=== PATIENT | female | born 1950 | race Caucasian/White ===

== ENCOUNTER → 2018-01-20 09:27 | Outpatient (CLI) | payer MEDICARE, BC, SELFPAY ==
--- NOTE | 2018-01-20 | DI.ECHO.S_ITS ---
[facility]---------+ [facility] +---------+ : : [address] : : [place] : : : : [id number] : : : : Phone: [phone]+ Echocardiogram Report + + :Name: NICOLASA RAHMAN Study Date: 01/20/2018 Height: 60 in : :[facility] Exam Location: IS Weight: 205 lb : : Gender: Female BSA: 1.9 m2 : :: 1950 Age: 67 yrs BP: 124/90 mmHg: :Reason For Study: Sarcoidosis : :Ordering Physician: Agustin Simon : :Abdelrahman Performed By: Anuja Luna : :Referring: Agustin Quick : + + Interpretation Summary 1) Normal left ventricular thickness, size, wall motion, and systolic function (EF 60-65%). 2) Grossly normal right ventricular size and function. 3) No significant valvular abnormalities. 4) There is no pericardial effusion. 5) No prior Echo available for comparison. Procedure: A two-dimensional transthoracic echocardiogram with color flow and Doppler was performed. The study quality was technically adequate. There is no prior echocardiogram noted for this patient. The patient was not able to reposition for the echocardiogram. The images were obtained with the patient laying supine. The patient was in normal sinus rhythm during the exam. Left Ventricle: The left ventricle is normal in size. There is normal left ventricular wall thickness. The ejection fraction is estimated to be 60-65%. Left ventricular systolic function is normal without focal wall motion abnormalities. Right Ventricle: The right ventricle is grossly normal size. The right ventricular systolic function is normal. Atria: The left atrium grossly appears normal in size. Right atrial size is normal. The interatrial septum is intact with no evidence for an atrial septal defect. Mitral Valve: The mitral valve leaflets appear mildly thickened, but open well. There is mild mitral annular calcification. There is trace mitral regurgitation. Aortic Valve: The aortic valve is trileaflet. The aortic valve opens well. There is no aortic valve stenosis. There is trace aortic regurgitation. Tricuspid Valve: The tricuspid valve is normal in structure and function. There is trace tricuspid regurgitation. The right ventricular systolic pressure is estimated at 25 mmHg assuming a right atrial pressure of 3 mm Hg. Pulmonic Valve: The pulmonic valve is not well seen, but is grossly normal. There is a trace or physiologic amount of pulmonic regurgitation. Great Vessels: The ascending aorta could not be visualized. The IVC is of normal diameter and collapses greater than 50% with a sniff. This suggests a low right atrial pressure of 3 mm Hg. Pericardium/ Pleura There is no pericardial effusion. There is an anterior echo-free space consistent with a fat pad. There is no pleural effusion. MMode/2D Measurements & Calculations LVIDd: 5.1 cm LVOT diam: 2.2 cm LVIDs: 3.6 cm FS: 29.3 % IVSd: 0.95 cm LVPWd: 0.79 cm LV bhakta. diameter/BSA (cm/m^2): 2.7 LV sys. diameter/BSA (cm/m^2): 1.9 RA long axis: 4.5 cm TAPSE: 2.1 cm RA area: 11.5 cm2 RA vol: 25.0 ml RA : 13.3 ml/m2 Doppler Measurements & Calculations Ao V2 max: 128.5 cm/sec LVOT Max Cliff: 90.2 cm/sec Ao V2 mean: 98.0 cm/sec LV V1 max P.3 mmHg Ao max P.6 mmHg LV V1 VTI: 16.5 cm Ao mean P.1 mmHg MATEO(I,D): 2.4 cm2 Ao V2 VTI: 26.6 cm MATEO(V,D): 2.7 cm2 sev ratio: 0.62 MATEO indexed to BSA (cm^2/m^2): 1.3 MV E max cliff: 50.9 cm/sec TR max cliff: 233.9 cm/sec MV A max cliff: 67.3 cm/sec TR max P.9 mmHg MV E/A: 0.76 PA V2 max: 72.0 cm/sec Med Peak E' Cliff: 3.8 cm/sec PA V2 mean: 49.3 cm/sec E/E' med: 13.4 PA mean P.1 mmHg Lat Peak E' Cliff: 8.7 cm/sec PA pr(Accel): 11.6 mmHg E/E' lat: 5.8 E/e' average: 9.6 MV dec time: 0.14 sec Reading Physician:10:36 AM
== END ==
PROVIDERS: Family Provider Family Medicine; PCP Family Medicine; Visit Provider Internal Medicine Cardiovascular Disease
DX: D86.9 Sarcoidosis, unspecified (principal)
CPT/HCPCS: 93306

== ENCOUNTER → 2018-04-12 13:30 | Outpatient (CLI) | payer MEDICARE, BC, SELFPAY ==
--- NOTE | 2018-04-12 | DI.CT.S_ITS ---
PROCEDURE: CT CHEST HIGH RESOLUTION INDICATIONS: SYSTEMIC INVOLVEMENT LUNGS TECHNIQUE: Noncontrast 1.0 and 5.0 mm thick contiguous axial sections from the pulmonary apex to the posterior costophrenic angles, with 7 mm thick coronal and sagittal MIP reformats. 1 mm thick dynamic expiratory images acquired through the upper, mid, and lower lungs. 1.0 mm thick axial sections acquired from the didi to the posterior costophrenic angles in the prone end-inspiration position. For radiation dose reduction, the following was used: automated exposure control, adjustment of mA and/or kV according to patient size. COMPARISON: [facility], CT, CHEST HIGH RESOLUTION, 06/10/2017, 15:39. FINDINGS: Image quality: Excellent. Lungs: No acute consolidation is seen. There is diffuse scarring and atelectasis. Prominent platelike atelectasis along the right fissure which has developed since the prior study dated 06/10/17. No pneumothorax. No pleural effusion. No areas of honeycombing are seen. Traction bronchiectasis present within the right upper and middle lobe. No tree in bud opacities. Mosaic lung attenuation seen in the upper lobes raises the possibility of air-trapping. The Mediastinum: Heart size is normal. Coronary artery disease. No pericardial effusion. Thoracic aorta and central pulmonary arteries are normal in size. Circumferential esophageal wall thickening is present versus small hiatal hernia. Overall, the appearance is unchanged since 06/10/17. Bones and chest wall: No suspicious bony lesions. No vertebral body compression fractures. Abdomen: Visualized upper abdominal solid organs and bowel loops appear normal. IMPRESSION: Interval development of platelike atelectasis along the right fissure, new since the prior study of 06/10/17. Underlying pulmonary nodule or associated intraluminal lesion with associated post obstructive atelectasis cannot be excluded. Right upper lobe and middle lobe bronchiectasis. No acute consolidation. No areas of honeycombing identified. Dictated by: Stu Gonzalez M.D. on 04/12/2018 at 16:22 Approved by: Stu Gonzalez M.D. on 04/12/2018 at 16:30
== END ==
PROVIDERS: Family Provider Family Medicine; PCP Family Medicine; Visit Provider Internal Medicine Critical Care Medicine
DX: M35.8 Other specified systemic involvement of connective tissue (principal); J98.11 Atelectasis; J47.9 Bronchiectasis, uncomplicated; I25.10 Atherosclerotic heart disease of native coronary artery without angina pectoris
CPT/HCPCS: 71250

== ENCOUNTER → 2018-04-23 13:33 | Outpatient (CLI) | payer MEDICARE, BC, SELFPAY | PROVIDERS: Family Provider Family Medicine; PCP Family Medicine; Visit Provider Internal Medicine Rheumatology | DX: M81.0 Age-related osteoporosis without current pathological fracture (principal) | CPT/HCPCS: 77080 ==

== ENCOUNTER → 2018-05-20 14:18 | Outpatient (CLI) | payer MEDICARE, BC, SELFPAY ==
--- NOTE | 2018-05-20 | DI.RAD.S_ITS ---
PROCEDURE: XR CHEST 2V INDICATIONS: PNEUMONIA TECHNIQUE: 2 views of the chest were acquired. COMPARISON: [facility], , CHEST 2 VIEW, 05/08/2017, 12:32. FINDINGS: Surgical changes and devices: None. Lungs and pleura: No pleural effusions or pneumothorax. Lungs are clear. Mediastinum: Mediastinal contours are normal. Heart size is normal. Bones and chest wall: No suspicious bony abnormalities. Soft tissues appear unremarkable. IMPRESSION: Normal for age, source of current pneumonia symptoms is not seen. Dictated by: Alfred Davies M.D. on 05/20/2018 at 16:04 Approved by: Alfred Davies M.D. on 05/20/2018 at 16:04
--- NOTE | 2018-05-21 16:33 | PM.PFT.1 ---
Pulmonary Function Test Referral & Results Date Patient Seen: 05/20/18 Requesting provider: Adriana Bellamy Indication: J84.89 Results: The spirometry demonstrates an FVC of 2.10 L which is 81% of predicted. The FEV1 was measured at 1.75 L which is 89% of predicted. The FEV1/FVC ratio was 83 which is 109% of predicted. Following the administration of bronchodilator there was no appreciable change. Lung volumes show an SVC of 2.08 L which is 83% of predicted. The diffusing capacity was measured at 17.67 which is 93% of predicted. The maximum voluntary ventilation was reduced Interpretation: This study demonstrates mild obstructive lung disease based on minimal reduction in FEV1 without evidence of benefit following bronchodilator There is a very mild reduction in SVC suggesting an element of restrictive lung disease as well Compared to PFTs performed in April 2017, current study does show decline in FEV1 an SVC. Clinical correlation suggested
== END ==
PROVIDERS: Family Provider Family Medicine; PCP Family Medicine; Referring Provider Internal Medicine Rheumatology; Visit Provider Internal Medicine Critical Care Medicine
DX: J84.89 Other specified interstitial pulmonary diseases (principal); M35.8 Other specified systemic involvement of connective tissue; J18.1 Lobar pneumonia, unspecified organism
CPT/HCPCS: 71046; 94060; 94726; 94729

== ENCOUNTER → 2018-05-28 12:31 | Outpatient (CLI) | payer MEDICARE, BC, SELFPAY ==
--- NOTE | 2018-05-28 | DI.CT.S_ITS ---
PROCEDURE: CT CHEST WO CON INDICATIONS: Lobar pneumonia, unspecified organism TECHNIQUE: Noncontrast 5 mm thick sections acquired from the pulmonary apices to the posterior costophrenic angles. 7 mm thick coronal and sagittal MIP reformats were then acquired. For radiation dose reduction, the following was used: automated exposure control, adjustment of mA and/or kV according to patient size. COMPARISON: [facility], CT, CHEST HIGH RESOLUTION, 06/10/2017, 15:39. [facility], CT, CT CHEST HIGH RESOLUTION, 04/12/2018, 13:31. FINDINGS: Image quality: Excellent. Lungs and pleura: Again noted is a chronic interstitial process involving the upper lobes, with an apical predominance, right greater than left. This process does not appear to be progressive. There is mild associated upper lung zone bronchiectasis. No acute focal pulmonary infiltrates. No pleural effusion or atelectasis. Mediastinum: Heart size is normal. No pericardial effusion. No mediastinal adenopathy by size criteria. Thoracic aorta and central pulmonary arteries are normal in size. Esophagus is normal in caliber. No hiatal hernia. Advanced coronary artery calcifications. Bones and chest wall: No suspicious bony lesions. No vertebral body compression fractures. No axillary or supraclavicular adenopathy by size criteria. Thyroid gland unremarkable. Abdomen: Visualized upper abdominal solid organs and bowel loops appear normal in the absence of contrast. IMPRESSION: 1. Unchanged mild biapical chronic interstitial pulmonary fibrosis. No evidence acute pulmonary process. 2. Advanced coronary artery calcifications. Dictated by: Timmy Newman M.D. on 05/28/2018 at 12:54 Approved by: Timmy Newman M.D. on 05/28/2018 at 13:00
== END ==
PROVIDERS: Family Provider Family Medicine; PCP Family Medicine; Referring Provider Internal Medicine Rheumatology; Visit Provider Internal Medicine Critical Care Medicine
DX: J18.1 Lobar pneumonia, unspecified organism (principal); J84.10 Pulmonary fibrosis, unspecified; I25.10 Atherosclerotic heart disease of native coronary artery without angina pectoris
CPT/HCPCS: 71250

== ENCOUNTER → 2018-10-13 11:22 | Outpatient (CLI) | payer MEDICARE, BC, SELFPAY ==
--- NOTE | 2018-10-13 | DI.MRI.S_ITS ---
PROCEDURE: MR LUMBAR SPINE WO CON INDICATIONS: Spondylolisthesis, lumbar region TECHNIQUE: Noncontrast sagittal T1 spin echo and T2 fast echo, sagittal STIR, axial T1 and T2 fast spin echo through the lumbar spine. In cases with scoliosis, additional coronal T2 fast spin echo may be performed. COMPARISON: [facility] [place], CR, XR LUMBAR SPINE 2 OR 3 VIEWS, 10/01/2018, 13:58. [facility], MR, L-SPINE WITHOUT CONTRAST, 06/20/2014, 18:01. FINDINGS: Image quality: Excellent. Alignment and Curvature: 5 lumbar type vertebral bodies are present by plain film. There is mild, grade 1 anterolisthesis of L4 on L5. Bone Marrow: Marrow is of normal overall signal. No acute vertebral body compression fractures. Mild reactive signal within the endplates adjacent to the L4-L5 and L5-S1 intervertebral discs. Spinal Cord: Conus medullaris terminates at the upper L2 level. Visualized cord demonstrates normal signal and size. Paraspinous Soft Tissues: No paravertebral masses. L1-L2: Mild facet and ligamentum flavum hypertrophy. No significant canal, nor foraminal stenosis. L2-L3: Mild facet and ligamentum flavum hypertrophy. No significant canal, nor foraminal stenosis. L3-L4: Mild disc desiccation. Mild disc height loss. Mild diffuse disc bulge. Mild facet and ligamentum flavum hypertrophy. Mild canal stenosis. Mild bilateral foraminal stenosis. No change. L4-L5: Moderate disc height loss and desiccation. Mild diffuse disc bulge. Moderate facet and ligamentum flavum hypertrophy. Severe canal stenosis. Mild bilateral foraminal stenosis. No change. L5-S1: Mild disc height loss. Moderate disc desiccation. Mild diffuse disc bulge with superimposed small central protrusion. Mild bilateral facet hypertrophy. Mild canal stenosis. Mild bilateral foraminal stenosis. IMPRESSION: 1. Multilevel degenerative disc and facet disease, as well as ligamentum flavum hypertrophy and epidural lipomatosis. 2. Multilevel canal stenoses, worst at L4-L5, where there is severe canal stenosis, as before. 3. No change in mild multilevel foraminal stenoses. Dictated by: Augustus Reed M.D. on 10/13/2018 at 13:07 Approved by: Augustus Reed M.D. on 10/13/2018 at 13:29
== END ==
PROVIDERS: Family Provider Family Medicine; PCP Family Medicine; Visit Provider Orthopaedic Surgery
DX: M43.16 Spondylolisthesis, lumbar region (principal); M51.36 Other intervertebral disc degeneration, lumbar region; M51.37 Other intervertebral disc degeneration, lumbosacral region; M48.061 Spinal stenosis, lumbar region without neurogenic claudication; M48.07 Spinal stenosis, lumbosacral region; E88.2 Lipomatosis, not elsewhere classified
CPT/HCPCS: 72148

== ENCOUNTER → 2018-11-19 15:55 | Outpatient (CLI) | payer MEDICARE, BC, SELFPAY ==
--- NOTE | 2018-11-19 | DI.ECHO.S_ITS ---
[facility] +---------+ [facility] +---------+ : : [address] : : [place] : : : : [id number] : : : : Phone: [phone]+ Echocardiogram Report + + :Name: NICOLASA RAHMAN Study Date: 11/19/2018 Height: 60 in : :[facility] Weight: 201 lb : : Gender: Female BSA: 1.9 m2 : :: 1950 Age: 68 yrs BP: 146/84 mmHg: :Reason For Study: Dyspnea : :Ordering Physician: Adriana : :Parimi Performed By: Bonny Flores : :Referring: Dr. Zeke Valente : + + Interpretation Summary 1) Normal left ventricular thickness, size, wall motion, and systolic function (EF 60-65%). 2) Grossly normal right ventricular size with low normal function. 3) No significant valvular abnormalities. 4) The right ventricular systolic pressure is estimated to be at least 35 mmHg based on an estimated right atrial pressure of 3 mm Hg. 5) Compared to the Echo done 01/20/2019, no significant change. Procedure: A two-dimensional transthoracic echocardiogram with color flow and Doppler was performed. The study quality was technically adequate. Comparison is made with the echocardiogram of 01-20-18. The patient was in normal sinus rhythm during the exam. Left Ventricle: The left ventricle is normal in size, wall thickness, and systolic function without any focal wall motion abnormalities. The ejection fraction is estimated to be 60-65%. Right Ventricle: Grossly normal right ventricular size with low normal function. Atria: The left atrial size is normal. Right atrial size is normal. The interatrial septum is intact with no evidence for an atrial septal defect. Mitral Valve: The mitral valve is normal in structure and function. There is trace mitral regurgitation. Aortic Valve: The aortic valve is trileaflet. The aortic valve opens well. There is trace aortic regurgitation. Tricuspid Valve: The tricuspid valve leaflets are thin and pliable. There is mild tricuspid regurgitation. The right ventricular systolic pressure is estimated to be at least 35 mmHg based on an estimated right atrial pressure of 3 mm Hg. Pulmonic Valve: The pulmonic valve is normal in structure and function. There is trace pulmonic regurgitation. Great Vessels: The aortic root is normal size. The ascending aorta is at the upper limits of normal in size. The aortic arch is normal in size. The IVC is of normal diameter and collapses greater than 50% with a sniff. This suggests a low right atrial pressure of 3 mm Hg. Pericardium/ Pleura There is no pericardial effusion. There is no pleural effusion. MMode/2D Measurements & Calculations LVIDd: 4.6 cm Ao root diam: 3.4 cm LVIDs: 3.1 cm Aortic Jxn: 2.7 cm FS: 33.0 % asc Aorta Diam: 3.6 cm EPSS: 0.31 cm Ao Arch Diam (Prox Trans): 2.8 cm IVSd: 1.00 cm LVPWd: 0.97 cm LV bhakta. diameter/BSA (cm/m^2): 2.5 LV sys. diameter/BSA (cm/m^2): 1.7 LA dimension: 3.3 cm RA long axis: 4.3 cm LA A2 area: 19.0 cm2 RA area: 16.8 cm2 LA A4 area: 18.1 cm2 RA vol: 55.6 ml LA length (vol): 4.5 cm RA : 29.7 ml/m2 LA vol: 65.6 ml RVDd major: 5.1 cm LA vol index: 35.1 ml/m2 RVD1 (basal): 4.0 cm RVD2 (mid): 3.6 cm Doppler Measurements & Calculations Ao V2 max: 146.6 cm/sec MV E max cliff: 95.9 cm/sec Ao V2 mean: 99.0 cm/sec MV A max cliff: 95.9 cm/sec Ao max P.6 mmHg MV E/A: 1.0 Ao mean P.5 mmHg Med Peak E' Cliff: 4.8 cm/sec Ao V2 VTI: 35.1 cm E/E' med: 19.8 Lat Peak E' Cliff: 8.2 cm/sec E/E' lat: 11.7 E/e' average: 15.7 MV dec time: 0.23 sec MV P1/2t: 67.4 msec TR max cliff: 281.1 cm/sec MV P1/2t max cliff: 94.5 cm/sec TR max P.6 mmHg MVA(P1/2t): 3.3 cm2 PA V2 max: 89.8 cm/sec PA V2 mean: 59.1 cm/sec PA mean P.7 mmHg PA Accel Time: 0.13 sec Reading Physician:12:24 PM
== END ==
PROVIDERS: Family Provider Family Medicine; PCP Family Medicine; Visit Provider Internal Medicine Critical Care Medicine
DX: I35.1 Nonrheumatic aortic (valve) insufficiency (principal); I07.1 Rheumatic tricuspid insufficiency; I37.1 Nonrheumatic pulmonary valve insufficiency; R06.09 Other forms of dyspnea
CPT/HCPCS: 93306

== ENCOUNTER → 2019-01-28 14:36 | Outpatient (CLI) | payer MEDICARE, BC, SELFPAY ==
--- NOTE | 2019-01-28 | DI.CT.S_ITS ---
PROCEDURE: CT CHEST WO CON INDICATIONS: interstitial lung disease TECHNIQUE: Noncontrast 5 mm thick sections acquired from the pulmonary apices to the posterior costophrenic angles. 1 mm lung window, 5 mm thick coronal and sagittal and 7 mm axial MIP reformats were then acquired. For radiation dose reduction, the following was used: automated exposure control, adjustment of mA and/or kV according to patient size. COMPARISON: [facility], CT, CT CHEST WO [facility], 05/28/2018, 12:29. FINDINGS: Image quality: Excellent. Lungs and pleura: No acute consolidation. Scattered subsegmental atelectasis and/or scarring. No pleural effusion. No pneumothorax. Central bronchial wall thickening. Scattered traction bronchiectasis, mild No definite areas of honeycombing appearance. No tree-in-bud opacities. Ill-defined areas of 1.1 cm nodularity, for example the right lung base on image 11 series 3, and smaller in the right sulcus on image to 35 series 3. These could represent areas of nodular scarring although technically indeterminate and could be followed up with three-month interval chest CT at clinical discretion Mediastinum: Heart size is normal. No pericardial effusion. No mediastinal adenopathy by size criteria. Thoracic aorta and central pulmonary arteries are normal in size. Esophagus is normal in caliber. No hiatal hernia. Bones and chest wall: No suspicious bony lesions. No vertebral body compression fractures. No axillary or supraclavicular adenopathy by size criteria. Thyroid gland unremarkable. Abdomen: Visualized upper abdominal solid organs and bowel loops appear normal in the absence of contrast. IMPRESSION: Areas of scarring/atelectasis primarily in a bronchovascular distribution, probably postinflammatory. These appear progressed in both lower lobes although grossly unchanged in the right upper lobe Ill-defined foci measuring up to 1.1 cm, primarily within the right lower lobe, which could reflect nodular scarring although followup in [address] chest could be performed to exclude early metastatic or malignant nodules. No definite honeycombing appearance. Central bronchial wall thickening suggestive of nonspecific bronchitis and/or reactive airways disease. Mild diffuse traction bronchiectasis. Dictated by: Stu Gonzalez M.D. on 01/28/2019 at 16:44 Approved by: Stu Gonzalez M.D. on 01/28/2019 at 16:53
== END ==
PROVIDERS: PCP Family Medicine; Visit Provider Internal Medicine Critical Care Medicine
DX: J84.9 Interstitial pulmonary disease, unspecified (principal); J47.9 Bronchiectasis, uncomplicated
CPT/HCPCS: 71250

== ENCOUNTER → 2019-06-08 09:17 | Outpatient (CLI) | payer MEDICARE, BC, SELFPAY ==
[2019-06-08 10:11] LABS: Add Manual Diff / Slide Review NO; Basophils Absolute Auto 100 /uL (0-100); Basophils Percent Auto 0.9 % (0-2); Eosinophils Absolute Auto 300 /uL (0-450); Eosinophils Percent Auto 2.6 % (2-4); Hematocrit 38.9 % (36-46); Hemoglobin 12.5 g/dL (12.0-16.0); Lymphocytes Absolute Auto 1100 /uL (1100-4500); Lymphocytes Percent Auto 8.6 % (25-40); Mean Corpuscular HGB Conc 32.1 % (30-36); Mean Corpuscular Hemoglobin 29.3 PG (26-34); Mean Corpuscular Volume 91.3 fL (80-100); Monocytes Absolute Auto 1300 /uL (0-900); Monocytes Percent Auto 9.7 % (3-14); Neutrophils Absolute Auto 10200 /uL (1500-7000); Neutrophils Percent Auto 78.2 % (50-75); Platelet Count 351 X10^3/uL (150-400); Red Blood Cell Count 4.26 X10^6/uL (4.0-5.2); Red Cell Distribution Width 16.4 % (11.6-14.8)
[2019-06-08 10:20] LABS: Hemoglobin A1C% w Est Avg Glu 7.3 % (4.0-6.0)
[2019-06-08 11:18] LABS: Blood Urea Nitrogen 18 mg/dL (7-17); Calcium 10.6 mg/dL (8.4-10.2); Carbon Dioxide 32 mmol/L (22-32); Chloride 98 mmol/L (98-107); Estimated Glomerular Filt Rate 44.5 mL/min (>60); Glucose 159 mg/dL (80-110); HEMOLYSIS < 15 (0-50); Potassium 4.3 mmol/L (3.4-5.1); Sodium 139 mmol/L (137-145)
== END ==
PROVIDERS: PCP Family Medicine; Referring Provider Orthopaedic Surgery Orthopaedic Surgery of the Spine; Visit Provider Orthopaedic Surgery Orthopaedic Surgery of the Spine
DX: Z01.812 Encounter for preprocedural laboratory examination (principal)
CPT/HCPCS: 36415; 80048; 83036; 85025; 93005

== ENCOUNTER → 2019-06-30 12:32 | Outpatient (CLI) | payer MEDICARE, BC, SELFPAY ==
--- NOTE | 2019-06-30 | DI.US.S_ITS ---
PROCEDURE: US RENAL COMPLETE INDICATIONS: STAGE III RENAL DISEASE TECHNIQUE: Real-time scanning was performed of the kidneys and bladder, with image documentation. COMPARISON: None. FINDINGS: Kidneys: Kidneys are normal in size. Right kidney measures 9.3 cm long; left kidney measures 10.4 cm long. Right renal cortical thickness is 1.5 cm; left renal cortical thickness is 1.3 cm. Renal cortical echotexture is normal. No hydronephrosis or nephrolithiasis. No suspicious solid mass lesions. 3.7 x 3.3 x 3.7 cm cyst in the inferior pole of the left kidney Bladder: Pre-void bladder volume is 186 mL. Post-void residual is zero mL. Pre-void images demonstrate no intraluminal masses or stones. On pre-void images, both of the ureteral jets are noted with color Doppler interrogation. (Of note, ureteral jets may not be detectable in up to 25% of cases due to insufficient differences in specific gravity between ureteral and bladder urine). Miscellaneous: No free pelvic fluid. IMPRESSION: Left renal cyst. No hydronephrosis. Dictated by: Stu Gonzalez M.D. on 06/30/2019 at 16:49 Approved by: Stu Gonzalez M.D. on 06/30/2019 at 16:51
[2019-06-30 13:44] LABS: RBC Urine None Seen (0-5/HPF)
[2019-06-30 14:19] LABS: Add Manual Diff / Slide Review NO; Basophils Absolute Auto 100 /uL (0-100); Basophils Percent Auto 1.1 % (0-2); Eosinophils Absolute Auto 200 /uL (0-450); Eosinophils Percent Auto 2.9 % (2-4); Hematocrit 37.7 % (36-46); Hemoglobin 11.9 g/dL (12.0-16.0); Lymphocytes Absolute Auto 1200 /uL (1100-4500); Lymphocytes Percent Auto 13.9 % (25-40); Mean Corpuscular HGB Conc 31.6 % (30-36); Mean Corpuscular Hemoglobin 28.9 PG (26-34); Mean Corpuscular Volume 91.4 fL (80-100); Monocytes Absolute Auto 800 /uL (0-900); Monocytes Percent Auto 8.8 % (3-14); Neutrophils Absolute Auto 6300 /uL (1500-7000); Neutrophils Percent Auto 73.3 % (50-75); Platelet Count 335 X10^3/uL (150-400); Red Blood Cell Count 4.12 X10^6/uL (4.0-5.2); Red Cell Distribution Width 16.7 % (11.6-14.8); White Blood Cell Count 8.6 X10^3/uL (4.5-11.0)
[2019-06-30 14:34] LABS: Blood Urea Nitrogen 16 mg/dL (7-17); Calcium 10.2 mg/dL (8.4-10.2); Carbon Dioxide 32 mmol/L (22-32); Chloride 99 mmol/L (98-107); Glucose 193 mg/dL (80-110); HEMOLYSIS < 15 (0-50); Magnesium 1.8 mg/dL (1.6-2.3); Phosphorous 3.7 mg/dL (2.8-4.1); Potassium 4.6 mmol/L (3.4-5.1); Sodium 138 mmol/L (137-145); Uric Acid 6.1 mg/dL (2.5-6.2)
[2019-06-30 14:37] LABS: Appearance Urine UA CLEAR; Bilirubin Urine UA NEGATIVE (NEGATIVE); Color Urine UA YELLOW; Glucose Urine UA NEGATIVE (Negative); Ketones Urine UA NEGATIVE (NEGATIVE); Leukocyte Esterase Urine UA 2+ (NEGATIVE); Nitrite Urine UA NEGATIVE (Negative); Occult Blood Urine UA NEGATIVE (Negative); Protein Urine UA NEGATIVE (Negative); Specific Gravity Urine UA <=1.005 (1.000-1.035); Urobilinogen Urine UA 0.2 E.U./dL (0.2)
[2019-06-30 15:08] LABS: Amorphous Sediment Urine 1+; Bacteria Urine Many (>30); Culture Indicated Urine Specimen Cultured; Squamous Epithelial Cell Urine 0-1 /HPF (0-5/HPF); WBC Urine 10-30/HPF (0-5/HPF)
[2019-06-30 16:09] LABS: Creatinine Urine Random 23.3 mg/dL
[2019-06-30 16:13] LABS: Microalbumi Creatinin Ratio Ur 98.7 ug/mg CR (<30); Microalbumin Urine Random 2.3 mg/dL (0-1.6)
== END ==
PROVIDERS: PCP Family Medicine; Referring Provider Internal Medicine Nephrology; Visit Provider Internal Medicine Nephrology
DX: N18.3 Chronic kidney disease, stage 3 (moderate) (principal); N28.1 Cyst of kidney, acquired
CPT/HCPCS: 36415; 76770; 80048; 81001; 82043; 82570; 83735; 84100; 84550; 85025; 87077; 87086; 87186

== ENCOUNTER 2019-07-08 10:34 | Inpatient (IN) | payer MEDICARE, BC, SELFPAY ==
[2019-06-27 13:54] VITALS: BMI 35.2
[2019-07-08] VITALS (12 sets, daily range): BP systolic 98–153; BP diastolic 57–84; PULSE 78–93; RESP 11–18; TEMP 35.6–36.9; O2SAT 91–96; BMI 34.9
--- NOTE | 2019-07-08 | DI.RAD.S_ITS ---
PROCEDURE: XR LUMBAR SPINE 2-3V INDICATIONS: L4-5, L5-S1 TLIF TECHNIQUE: 2 views of the lumbar spine were acquired. COMPARISON: None. FINDINGS: Bones: Immediate postoperative imaging showing L4-S1 transverse pedicle screws and vertical fixation rods with cage disc prostheses devices at the 2 intervening disc levels. Soft tissues: Overlying bowel gas pattern is normal. No suspicious soft tissue calcifications. IMPRESSION: Expected anatomic alignment established after posterior fusion and interbody disc prosthesis placement from L4-S1. Dictated by: Alfred Davies M.D. on 07/08/2019 at 16:07 Approved by: Alfred Davies M.D. on 07/08/2019 at 16:08
[2019-07-08] MEDS: LACTATED RINGERS 1,000 ML 42 ML IV ×2 (11:04→13:33)
--- NOTE | 2019-07-08 12:11 | PM.PREOP ---
Pre-operative Note Interval Note History & Physical reviewed/Exam performed by Physician: Yes Changes to H&P: No
[2019-07-08] MEDS: CLINDAMYCIN 900 MG/50 ML PIGGYBACK 50 MG IV ×2 (12:38→21:58)
--- NOTE | 2019-07-08 13:23 | SUR.OPER ---
Prone on spine table, head in foam head support, padded chest and pelvic supports, gel pad at knees, lower legs supported by pillows; nipples, genitalia and toes free of pressure, arms secured on foam padded arm boards at <90 degrees abduction. Tape over blanket at thigh secured to table.
[2019-07-08] MEDS: BUPIVACAINE LIPOSOME 266 MG/20 ML VIAL INJ (15:42)
[2019-07-08] MEDS: BUPIVACAINE 0.25% W/ EPI 30 ML VIAL INJ (15:42)
--- NOTE | 2019-07-08 16:00 | P.OP_ITS ---
Operative Date/Time/Diagnoses Date of procedure: 07/08/19 Time of procedure: 13:01 Pre-op diagnosis: 1. L4-5, L5-S1 spondylolisthesis 2. L4-5, L5-S1 spinal stenosis. Post-op diagnosis: same Procedure & Clinicians Procedure: 1. L4-5, L5-S1 Postero-lateral and posterior interbody fusion 2. L4-5, L5-S1 interbody cage placement. 3. L4-5, L5-S1 decompressive laminectomy with bilateral facetecomies 4. L4-5, L5-S1 Posterior segmental instrumentation 5. [place] of bone marrow from iliac crest 6. Utilization of microsurgical technique and operating microscope Same procedure as scheduled: Yes Indications: Patient has been having chronic back pain and worsening lumbar radiculopathy. Patient failed multiple conservative management with worsening pain weakness and numbness in her lower extremity. Patient has been having difficulty performing activity of daily living. After discussing risks benefits of treatment options, patient elected proceed with surgery. Surgeon: Tanja Page Textile Technologist: Mary Jane Goddard Click Yes if Unassisted: No Anesthesia Type: General Operative Notes Closure Type: primary Specimen(s): none sent Prosthetic devices, grafts, tissues, transplants, or devices: Globus revolve, Rise cages Applied: catheter Estimated Blood Loss (mL): 50 Blood products transfused: none Procedure in detail: Patient was seen in the preoperative area. Risks and benefits of the surgery was discussed with the patient. Informed consent was obtained from the patient and placed in the chart. Surgical site was marked. Patient was taken to the operative room. General anesthesia was administered. Prophylactic antibiotic was given to the patient less than 30 min before the incision was made. Patient was placed into a prone position on the Ernesto table. Patient's back was then prepped and draped in the sterile fashion. Time- out was performed at this time. Using AP and lateral C-arm imaging the interval between L4-S1 was identified and marked on patient's back. A 2 inch incision 2 in from midline was made on the right side first. The fascia was incised in line with skin incision. Globus MARS retractors was placed inside the incision and docked onto the L4 and L5 lamina. Using microsurgical technique and operating microscope, a L4 and L5 laminectomy and L4-5 L5-S1 facetectomy was performed using a Kerrison rongeur. During the process of decompression more than 75% of bilateral L4-5 L5-S1 facets were removed in order to decompress the spinal canal and the lateral recess. The L4-5 L5-S1 level was grossly unstable after the decompression was completed and requiring the fusion procedure. The disc space at L4-5, L5-S1 was identified. And a total diskectomy was performed at L4-5, L5-S1 level. The endplates were decorticated using a rasp and shaver. The total diskectomy and decortication was performed at L4-5, L5-S1 level in order to to accomplish a L4- 5, L5-S1 fusion. The local bone from the laminectomy and facetectomy was saved for local bone grafting. After the total diskectomy and decortication was completed, Bio4 bone graft material was combined with local bone that was harvested earlier. At this time, a separate skin is incision was made over the iliac crest. A Jamshidi needle was inserted into the iliac crest through a separate skin incision. 5 cc of bone marrow aspiration was obtained through the separate skin incision using a Jamshidi needle from the iliac crest. The bone marrow aspiration was combined with local bone and the Bio4 bone grafting material. The bone grafting material was placed into the L4-5, L5-S1 interbody space along with two cages, one expandable cage at each level. The cages were expanded to their maximum height using the torque limiting screwdriver. At this time a mirror image incision was made on the left side. The fascia was incised in line with the skin incision. Globus MARS retractor was inserted and docked onto the L4-5, L5-S1 posterolateral gutter. Using the power drill, posterior-lateral decortication was performed at L4-5, L5-S1 level until bleeding cortical bone was identified. The remaining bone grafting material was placed into the L4-5 L5-S1 posterior lateral gutter he order to accomplish posterolateral fusion at the L4-5 L5-S1 levels. Using the double C-arm technique, pedicle screws were placed into the L4, L5, S1 pedicles bilaterally. This was done by placing the Jamshidi needle into the pedicles, then placing the guidewires over the Jamshidi needle, and finally placing the cannulated screws over the guidewires bilaterally. After the pedicle screws were placed, 2 titanium rods was locked into the heads of the pedicle screws using locking caps and torque limiting screwdriver. Total 6 pedicles screws were placed. After all the hardware was placed, and confirmed with AP and lateral C-arm imaging, the wound was then irrigated with sterile normal saline and packed with Ray-Sera gauze for 3 min to accomplish hemostasis. After the gauze was removed the deep fascia was closed with #1 Vicryl suture. The subcutaneous layer was closed with 2-0 Vicryl. The skin was closed with skin jackson. Patient tolerated the procedure well. There were no complications. Complications: none Post-operative Condition: stable Disposition: PACU Plan for aftercare: Admit to inpatient hospital
--- NOTE | 2019-07-08 16:06 | SUR.PHASEI ---
ocygen saturation decrases to 89% while sleeping. easily arrousable encouraged to take deep breaths with improvment. placed on oxygen at 2L/cannula.
[2019-07-08] MEDS: fentaNYL 100 MCG/2 ML INJ IV (16:17)
[2019-07-08] MEDS: SODIUM CHLORIDE 0.9% 1,000 ML 100 ML IV (18:17)
[2019-07-08] MEDS: MORPHINE IR 15 MG TABLET 30 MG PO (18:22)
--- NOTE | 2019-07-08 18:44 | PC.ADMIT ---
[email or web address] Admission Note: The patient,Dorene Small,69 y/o, was given written information regarding hospital policies, unit procedures and contact persons. Pt arrived from PACU at approx 1700. Awake, oriented x4. CMS+. Drsg to back c/d/i. Foot scd's placed on in PACU. Calf scd's ordered noted. Oriented to room and call system. Bed alarm on. Call light within reach. Patient's smoking status: Never smoker. Vital Signs - 8 hr 07/08/19 11:15 07/08/19 15:59 07/08/19 16:04 Temperature 97.6 F 98.4 F Pulse Rate 93 H 90 91 H Respiratory Rate 14 18 14 Blood Pressure 139/72 120/64 101/57 L Pulse Oximetry 91 93 92 07/08/19 16:10 07/08/19 16:19 07/08/19 16:30 Temperature 97.9 F Pulse Rate 86 82 84 Respiratory Rate 11 L 17 11 L Blood Pressure 109/64 127/76 114/63 Pulse Oximetry 93 96 92 07/08/19 16:37 07/08/19 16:44 07/08/19 17:00 Temperature 97.9 F 97.7 F 96.6 F L Pulse Rate 82 82 78 Respiratory Rate 17 16 16 Blood Pressure 122/71 133/71 Pulse Oximetry 94 94 94 07/08/19 17:29 07/08/19 18:01 Temperature 96.3 F L 96.6 F L Pulse Rate 81 80 Respiratory Rate 16 16 Blood Pressure 98/79 148/62 H Pulse Oximetry 96 95
[2019-07-08] MEDS: INSULIN ASPART 100 UNIT/ML INSULN PEN SUBCUT (19:00)
[2019-07-08] MEDS: GABAPENTIN 300 MG CAPSULE 600 MG PO (22:03)
[2019-07-08] MEDS: DOCUSATE 100 MG CAPSULE PO (22:03)
[2019-07-08] MEDS: METOCLOPRAMIDE HCL 10 MG TABLET PO (22:04)
[2019-07-08] MEDS: HYDROXYCHLOROQUINE 200 MG TABLET 400 MG PO (22:04)
[2019-07-08] MEDS: MONTELUKAST 10 MG TABLET PO (22:04)
[2019-07-08] MEDS: SENNOSIDES 8.6 MG TABLET 17.2 MG PO (22:33)
[2019-07-08] MEDS: ACYCLOVIR 400 MG TABLET PO (22:34)
[2019-07-08] MEDS: NITROFURANTOIN ER 100 MG CAPSULE PO (22:34)
[2019-07-09] VITALS (12 sets, daily range): BP systolic 100–114; BP diastolic 54–65; PULSE 72–96; RESP 16–18; TEMP 36.5–37.2; O2SAT 89–98
[2019-07-09] MEDS: MORPHINE IR 15 MG TABLET 30 MG PO ×3 (00:28→14:09)
[2019-07-09] MEDS: CLINDAMYCIN 900 MG/50 ML PIGGYBACK 50 MG IV (05:08)
[2019-07-09] MEDS: SODIUM CHLORIDE 0.9% 1,000 ML 100 ML IV (05:16)
[2019-07-09 06:25] LABS: Hemoglobin 10.9 g/dL (12.0-16.0)
--- NOTE | 2019-07-09 06:29 | PC.NURSE ---
SPO2 with 2 liters / 100%, turned 02 down to 1 liter still @ 100%. Discontinued 02 since 0500, then rechecked her SPO2 in RA sat. 88-89%. Placed oxygen @ 2 liters & SPO2 while asleep @ 93%. Declined Morphine 30 mg @ this time, states I'm okay right, now my pain level is @ 4/10 & that's tolerable. Instructed to call RN if she needed pain medication, will monitor.
[2019-07-09] MEDS: INSULIN ASPART 100 UNIT/ML INSULN PEN SUBCUT ×4 (08:10→17:01)
[2019-07-09] MEDS: INSULIN GLARGINE 100 UNIT/ML 3ML PEN 15 UNIT SUBCUT (08:11)
[2019-07-09] MEDS: NITROFURANTOIN ER 100 MG CAPSULE PO ×2 (08:12→20:45)
[2019-07-09] MEDS: predniSONE 5 MG TABLET PO (08:12)
[2019-07-09] MEDS: MYCOPHENOLATE MOFETIL 500 MG TABLET 1000 MG PO ×2 (08:12→20:48)
[2019-07-09] MEDS: ROSUVASTATIN 10 MG TABLET PO (08:16)
[2019-07-09] MEDS: GABAPENTIN 300 MG CAPSULE 600 MG PO ×3 (08:16→20:46)
[2019-07-09] MEDS: POTASSIUM CHLORIDE 20 MEQ TAB PO (08:16)
[2019-07-09] MEDS: LORATADINE 10 MG TABLET PO (08:16)
[2019-07-09] MEDS: METOCLOPRAMIDE HCL 10 MG TABLET PO ×3 (08:16→20:46)
[2019-07-09] MEDS: FUROSEMIDE 20 MG TABLET PO (08:16)
[2019-07-09] MEDS: DOCUSATE 100 MG CAPSULE PO ×2 (08:16→20:46)
[2019-07-09] MEDS: FOLIC ACID 1 MG TABLET PO (08:16)
[2019-07-09] MEDS: PANTOPRAZOLE 40 MG TABLET PO (08:16)
[2019-07-09] MEDS: ACYCLOVIR 400 MG TABLET PO ×2 (08:20→22:28)
--- NOTE | 2019-07-09 08:57 | PC.NURSE ---
Addendum entered by Mariam Rosales R.N. 07/09/19 11:41: Removed surgical dressing and replaced with new Coversite dressing (per new order). Incisions on either side of spine well-approximated and without active bleeding or drainage. Up in chair, denies needs at this time. Agrees to call for further transfers, light in reach. Addendum entered by Mariam Rosales R.N. 07/09/19 11:23: Patient sitting at edge of bed (working w/ PT/OT). Shadow drainage on lower back dressing outlined in black sharpie at this time. Original Note: Shift summary: Awake and alert, oriented X3. Dressing to lower back dry/intact with old shadow drainage. Has neuropathy to BLE's at baseline, otherwise denies paresthesias. Medicated w/ 30 mg PO IR Morphine for 6/10 low back pain. Lungs CTA, HRR. Remains on 2l O2, will try to wean off today. Tolerating PO's without N/V. BT+, hypoactive all quadrants. Denies passing any gas this morning. Perez to gravity, urine clear yellow. SCD's to bilateral feet. Using IS independently, encouraged ongoing use. Able to make needs known and calls appropriately. Light and belongings within reach, bed alarm on.
--- NOTE | 2019-07-09 11:01 | PT.IIE ---
Current Diagnoses Spondylolisthesis, lumbar region (07/08/19) Other spondylosis with radiculopathy, lumbosacral region (07/08/19) Spinal stenosis, lumbosacral region (07/08/19) Surgery Performed Operation Date: 07/08/19 12:15 Actual Procedures p L4-5,L5-S1 TLIF with posterior instrumentation(Not Applicable) - Tanja Page MD Surgical History (Last Updated 06/27/19 @ 14:35 by Lani Granados RN) H/O wrist surgery (Acute) History of arthroplasty of left knee (Acute) History of arthroplasty of right knee (Acute) Hx of bilateral cataract extraction (Acute) Hx of cholecystectomy (Acute) Hx of hernia repair (Acute) Hx of tonsillectomy (Acute) Status post correction of deviated nasal septum (Acute) Medical History (Last Updated 06/27/19 @ 14:42 by Lani Granados RN) Roach's disease (Acute) Arthritis (Acute) Asthma (Acute) Chronic cough (Acute) CKD (chronic kidney disease), stage III (Acute) Diabetes (Acute) Edema (Acute) GERD (gastroesophageal reflux disease) (Acute) Hiatal hernia (Acute) HLD (hyperlipidemia) (Acute) HTN (hypertension) (Acute) Incontinence (Acute) Interstitial lung disease (Acute) Nasal polyp (Acute) Neuropathy (Acute) Pneumonia (Acute) Polymyositis (Acute) Sarcoidosis (Acute) SCC (squamous cell carcinoma) (Acute) Physical Therapy Inpatient Evaluation/Re-Eval M1 PT/OT-IP Prior Functional Status Start: 07/09/19 13:47 Freq: NEEDED Status: Active Protocol: Document 07/09/19 11:01 (Rec: 07/09/19 14:09 [id number]) Medical Review Prior Functional Status Medical History Reviewed Yes Communication able to make needs known Mobility and Gait pt stated that she is modified independent with mobility at home using a 4WW. her friend Surinder assists her with showers and stair climbing Social History Household Members none Living Arrangements Mobile home Number of Floors (Floors) One Floor Number of Stairs To Enter/Railing? 3 steps to enter without rails Home Environment High Toilet,Tub/Shower Home Equipment Four Wheel Walker,Straight Cane,Raised Toilet Seat w/ Armrests,Hand Held Shower,Grab Bars In Shower Additional Social History Comment has an adjustable bed with rails stated that she can borrow a FWW stated that a friend can stay with her for 1-2 weeks to assist M2 PT-IP Current Condition Start: 07/09/19 13:47 Freq: NEEDED Status: Active Protocol: Document 07/09/19 11:01 AB (Rec: 07/09/19 14:09 [id number]) Physical Therapy Current Condition Current Condition Evaluation Date 07/09/19 Treatment Diagnosis s/p L4-S1 fusion/lami; difficulty in walking Onset Date 07/08/2019 Precautions Lumbar Precautions Log Roll,No Twisting,Limit Bending,Lifting Restriction of 10 lbs,Gait Belt above Incisional Area M3 PT-IP Subjective Start: 07/09/19 13:47 Freq: NEEDED Status: Active Protocol: Document 07/09/19 11:01 AB (Rec: 07/09/19 14:09 [id number]) Subjective Physical Therapy Visit Type Type Initial Evaluation Visit Start Time 11:01 Visit Stop Time 11:31 Total Visit Minutes 30 Number of BICYCLE REPAIRER Visits 0 Physical Therapy Visit Comments Patient Comments pt agreeable to do PT Therapy Pain Assessment Pain When Pain Assessed At Rest Pain Present Pain Present Pain Reported Location back Intensity 4 Scale Used Numeric (1 - 10) Pain Management Techniques Apply Cold,Re-positioning, Timing of Activity with Medications M4 PT-IP Mobility and Gait Start: 07/09/19 13:47 Freq: NEEDED Status: Active Protocol: Document 07/09/19 11:01 AB (Rec: 07/09/19 14:09 [id number]) PT-Bed Mobility Assessment Rolling Type of Rolling Log Rolling Level of Assist Moderate Assistance Supine to Sit Supine to Sit Moderate Assistance,1 Person Assistance,Bedrails PT-Transfer Assessment Equipment Transfer Assistive Device Gait Belt,Front Wheeled Walker Orthotic/Prosthetic Devices or Brace: No Transfers Transfer Destination Chair Transfer Technique using FWW Transfer Ability Level of Assist Moderate Assistance,1 Person Assistance,Use of Upper Extremities Comments Mobility Comments pt agreeable to do PT. educated on back precautions and log roll bed mobility. completed log roll supine to sit mod A with use of bed rail to assist. cues needed. pt was able to sit on EOB CGA. completed sit to stand mod A and cues. pt ambulated ~ 3 ft using FWW mod A and requested to sit down. positioned on the chair. call light and table placed within reach. Gait Assessment Gait Gait Assistance Required: Moderate Assistance,1 Person Assist Distance (Feet) 3 Able to Maintain Weight Bearing Status No During Gait Assistive Devices Assistive Device Gait Belt,Front Wheeled Walker Orthotic/Prosthetic Devices or Brace: No Gait Deviations General Gait Pattern Antalgic,Decreased Stride Length,Decreased Feet Clearance,Flexed Trunk Factors Limiting Gait Function Factors Limiting Gait Function Decreased Activity Tolerance, Decreased Sensation,Decreased Strength,Difficulty Following Directions,Limited Range of Motion,Pain,Poor Balance,Poor Safety Awareness,Respiratory Distress Comments Gait Comments pls refer to mobility section for details PT-Balance Assessment Sitting Balance and Reactions Static Sitting Balance Ability Good Dynamic Sitting Balance Ability Good Standing Balance and Reactions Static Standing Balance Ability Fair Dynamic Standing Balance Ability Poor Device Used FWW M5 PT-IP Objective Assessments Start: 07/09/19 13:47 Freq: NEEDED Status: Active Protocol: Document 07/09/19 11:01 (Rec: 07/09/19 14:09 [id number]) Orientation Orientation/Cognition Level of Alertness Alert Orientation Name,Place,Situation Safety Awareness Decreased Safety Awareness Memory Description Short Term Impaired Gross Range of Motion Lower Extremity ROM Assessment Within Functional Limits Strength Lower Extremity Strength Assessment Bilaterally Impaired Hip 3+/5 Knee 3+/5 Sensation Assessment Sensation Gross Sensation Right LE Impaired,Left LE Impaired Light Touch Impaired Proprioception (Position) Impaired Sensation Description Numbness Muscle Tone Muscle Tone WNL No M6 PT-IP Treatment Start: 07/09/19 13:47 Freq: NEEDED Status: Active Protocol: Document 07/09/19 11:01 (Rec: 07/09/19 14:09 [id number]) Physical Therapy Treatment Education Education Provided Precautions,Weight Bearing Status,Post-Op Packet,Safety M7 PT-IP Assessment and Plan Start: 07/09/19 13:47 Freq: NEEDED Status: Active Protocol: Document 07/09/19 11:01 (Rec: 07/09/19 14:09 [id number]) PT Summary Assessment and Plan Potential Rehabilitation Potential Good Status of Condition at Evaluation Evolving Summary Impairments Pain,ROM,Strength,Balance, Coordination,Sensation,Tone, Cognition,Bed Mobility, Transfers,Gait,Activity Tolerance Assessment Summary pt requiring mod A with mobility but unable to tolerate much ambulation with c/o increase pain. d/c plan depending on progress but may require SNF rehab. will conduct caregiver training whe appropriate and also complete stair climbing training. will continue to assess mobility progress to deterime safe d/c plan. Goals Bed Mobility Goal Standby Assistance Transfer Goal Standby Assistance,Front Wheeled Walker Gait Goal Standby Assistance,Front Wheel Walker Gait Distance 100 Other Goals up/down 3 steps SPC/FIRE BOSS min A Days to Meet Goals 5 Frequency of Treatment Frequency Of Treatment Twice a Day Treatment Plan Physical Therapy Treatment Plan Bed Mobility Training,Transfer Training,Gait Training, Therapeutic Exercise,Balance Retraining,Post Op Education, Discharge Planning,Hot or Cold Pack,Neuromuscular Re-ed, Coordination Retraining,Manual Therapy Other Recommendations and Next Treatment caregiver training and stair Focus training when appropriate Recommendations To Nursing Amount of Assist Needed 1 Person Assist Discharge Recommendations PT Discharge Recommendations Home with 24/7 Assist,Home Health,SNF Rehab Other Discharge Recommendations depending on progress: SNF vs home 24/7 and HHPT. Equipment Needed for Home Before FWW if unable to borrow one Discharge Transportation Needs at Discharge Private Vehicle,Wheelchair/ Cabulance
--- NOTE | 2019-07-09 11:17 | PM.PNPO.1 ---
Subjective Subjective Date Patient Seen: 07/09/19 Time Patient Seen: 09:30 Interval history: POD #1 s/p L4-5, L5-S1 Postero-lateral and posterior interbody fusion w Dr. Page. Patient complains of mild-moderate pain in lower back. 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 Voiding with a fish catheter. Has not mobilized with PT. Denies fever, chills, dry cough, shortness of breath, chest pain, nausea, vomiting, numbness, tingling. Exam Vital Signs (past 8 hours): - 07/09/19 05:30 07/09/19 08:00 07/09/19 08:13 Temperature 98.2 F 97.7 F Pulse Rate 77 72 Respiratory Rate 18 16 Blood Pressure 107/64 114/65 114/65 Pulse Oximetry 94 98 07/09/19 09:54 07/09/19 09:55 07/09/19 09:56 Temperature Pulse Rate 78 Respiratory Rate 18 Blood Pressure Pulse Oximetry 95 89 L 94 07/09/19 09:59 Temperature Pulse Rate Respiratory Rate Blood Pressure Pulse Oximetry 92 Oxygen Delivery Method Nasal Cannula Oxygen Flow Rate 1 Narrative Exam Narrative: 69 yo F is laying comfortably in bed, in no apparent distress. A&Ox3. Dressing has moderate shadow drainage, SCDs in place, fish catheter in place. Able to actively dorsiflex/plantar flex BL. Sensory function grossly intact to light touch in LE Bl except feet BL. Calves warm, soft, compressible, NTTP. Dorsalis pedis 2+ BL. Objective Labs Result Diagrams: 07/09/19 05:50 Labs: Laboratory Results - last 24 hr 07/09/19 05:50 Hgb 10.9 L Hct 35.0 L Assessment & Plan Post-op Postoperative Procedures: Procedures Operation Date: 07/08/19 12:15 Actual Procedures Side Surgeon p L4-5,L5-S1 TLIF with posterior instrumentation Not Applicable Tanja Page MD Postoperative day: 1 Postoperative status: doing well Postoperative plan narrative: Pain control - continue morphine PO, tylenol and gabapentin for pain. Has decadron for home meds. Begin mobilizing with PT Continue SCDs for DVT prophylaxis Dressing change ordered. Discharge home likely in next 24 - 48 hours Time Spent With Patient Time with patient: less than 15 minutes
--- NOTE | 2019-07-09 11:35 | OT.IP.EVAL ---
Current Diagnoses Spondylolisthesis, lumbar region (07/08/19) Other spondylosis with radiculopathy, lumbosacral region (07/08/19) Spinal stenosis, lumbosacral region (07/08/19) Surgery Performed Operation Date: 07/08/19 12:15 Actual Procedures p L4-5,L5-S1 TLIF with posterior instrumentation(Not Applicable) - Tanja Page MD Past Medical History (Last Updated 06/27/19 @ 14:42 by Lani Granados RN) Stanislaus's disease (Acute) Arthritis (Acute) Asthma (Acute) Chronic cough (Acute) CKD (chronic kidney disease), stage III (Acute) Diabetes (Acute) Edema (Acute) GERD (gastroesophageal reflux disease) (Acute) Hiatal hernia (Acute) HLD (hyperlipidemia) (Acute) HTN (hypertension) (Acute) Incontinence (Acute) Interstitial lung disease (Acute) Nasal polyp (Acute) Neuropathy (Acute) Pneumonia (Acute) Polymyositis (Acute) Sarcoidosis (Acute) SCC (squamous cell carcinoma) (Acute) Surgical History (Last Updated 06/27/19 @ 14:35 by Lani Granados RN) H/O wrist surgery (Acute) History of arthroplasty of left knee (Acute) History of arthroplasty of right knee (Acute) Hx of bilateral cataract extraction (Acute) Hx of cholecystectomy (Acute) Hx of hernia repair (Acute) Hx of tonsillectomy (Acute) Status post correction of deviated nasal septum (Acute) Occupational Therapy Inpatient Evaluation/Re-Eval M1 PT/OT-IP Prior Functional Status Start: 07/09/19 13:47 Freq: NEEDED Status: Active Protocol: Document 07/09/19 15:39 CGR (Rec: 07/09/19 16:02 CGR [id number]) Medical Review Prior Functional Status Medical History Reviewed Yes Communication able to make needs known Mobility and Gait pt stated that she is modified independent with mobility at home using a 4WW. her friend Surinder assists her with showers and stair climbing Activities of Daily Living and IADL's Pt states that she is able to dress and do most ADLs without assist but needs extra time. Her friend or neighbor assists her with bathing. She gets meals on wheels and does not cook. Social History Household Members none Living Arrangements Mobile home Number of Floors (Floors) One Floor Number of Stairs To Enter/Railing? 3 stairs without rail. Home Environment High Toilet,Walk in Shower Home Equipment Four Wheel Walker,Straight Cane,Raised Toilet Seat w/ Armrests,Shower Seat without Backrest,Hand Held Shower,Grab Bars In Shower Employment Status Retired Additional Social History Comment Pt has a tub/shower but with a recent cutout making it into a walk in shower. Pt has a raised toilet seat but does not use it as it makes her hi toilet too high. M2 OT-IP Current Condition Start: 07/09/19 15:39 Freq: Status: Active Protocol: Document 07/09/19 15:39 CGR (Rec: 07/09/19 16:02 CGR [id number]) Occupational Therapy Current Condition Current Condition Evaluation Date 07/09/19 Treatment Diagnosis L4-S1 TLIF Diagnosis Onset Date 07/08/19 Post Operative Precautions Lumbar Precautions Log Roll,No Twisting,Limit Bending,Lifting Restriction of 10 lbs,Gait Belt above Incisional Area M3 OT- IP Subjective and Pain Start: 07/09/19 15:39 Freq: Status: Active Protocol: Document 07/09/19 15:39 CGR (Rec: 07/09/19 16:02 CGR [id number]) OT- Subjective Occupational Therapy Visit Type Type Initial Evaluation Visit Start Time 10:55 Visit Stop Time 11:35 Total Visit Minutes 40 Notes Partial co-treat with P.T. OT Pain Assessment Pain When Pain Assessed During Mobility Pain Present Pain Present Pain Reported Location back Intensity 6 Scale Used Numeric (1 - 10) Management Techniques Apply Cold,Modification of Treatment,Timing of Activity with Medications M4 OT- IP ADL's Start: 07/09/19 15:39 Freq: Status: Active Protocol: Document 07/09/19 15:39 CGR (Rec: 07/09/19 16:02 CGR [id number]) OT [id number] Comments OT Self-Feeding Comments Not meal time OT ADL-Grooming General Evaluation Grooming Ability Standby Assistance Areas Needing Assistance Retrieving/Set-up of Grooming Items,Combing/Brushing Hair, Face Washing Comments OT Grooming Comments seated in chair OT ADL-Oral Care General Eval Oral Care Ability Standby Assistance Areas of Assistance Brushing Teeth,Retrieving/Set- Up of Items Comments Oral Care Comments seated in chair OT ADL-Dressing General Eval Lower Body Dressing Ability Total Assistance Areas Needing Assistance Socks Comments OT Dressing Comments Pt will need LB dressing training with hip kit but appears too overwhelmed to participate in teaching at this time. OT ADL-Toileting Comments OT Toileting Comments Not performed OT ADL-Bathing Comments OT Bathing Comments Not performed in this session. M5 OT- IP IADL's Start: 07/09/19 15:39 Freq: Status: Active Protocol: Document 07/09/19 15:39 CGR (Rec: 07/09/19 16:02 R [id number]) OT-Instrumental Activities of Daily Living Deficits IADL Deficits Identified Deficits Home Safety Awareness Awareness of Need for Assistance at Home Good Awareness Ability to Problem Solve Emergency Able to Problem Solve Situations Medication Management Medication Management No Deficits Identified Money Management Money Management No Deficits Identified Meal Preparation Meal Preparation Comments Meals on wheels Accounts Payable Specialist Accounts Payable Specialist Caregiver Provides Assist Accounts Payable Specialist Comments Pt has a cleaning lady that comes in once a week. Driving Driving Comments Pt does not drive. M6 OT- IP Functional Cognition Start: 07/09/19 15:39 Freq: Status: Active Protocol: Document 07/09/19 15:39 CGR (Rec: 07/09/19 16:02 CGR [id number]) Cognitive Factors Limiting Selfcare Function Cognitive Ability Level of Alertness Alert Patient Orientation Name,Age,Birthday,Month,Date, Year,Day of Week,Place, Situation Attention Span Ability Capable of Focused Attention, Capable of Sustained Attention Ability to Follow Commands Able to Follow One Step Commands with Increased Time, Able to Follow One Step Commands with Repetition Memory Description No Deficits Noted Safety Awareness Decreased Recall of Precautions Problem Solving Ability No deficits Noted OT- Vision and Hearing OT- Hearing Assessment OT- Hearing Assessment WFL OT- Vision Assessment Visual Acuity WFL Visual Attentiveness WFL Occular Pursuits WFL Visual Convergence WFL Visual Moore WFL M7 OT- IP Mobility and Balance Start: 07/09/19 15:39 Freq: Status: Active Protocol: Document 07/09/19 15:39 CGR (Rec: 07/09/19 16:02 CGR [id number]) OT- Bed Mobility Assessment Rolling Type of Rolling Log Rolling,Roll to Left Level of Assistance Moderate Assistance,1 Person Assistance Supine to Sit Supine to Sit Assist Moderate Assistance,1 Person Assistance Scooting Scooting to Edge of Bed Standby Assistance OT-Transfer Assessment Sit to and From Stand Sit to and from Stand Moderate Assistance,1 Person Assistance Transfers Transfer Ability Moderate Assistance,1 Person Assistance Technique Transfer Destination Bed,Chair Transfer Technique Stand Step Pivot Devices Transfer Assistive Devices Gait Belt,Front Wheeled Walker OT- Gait Assessment Gait Gait Assistance Required: Moderate Assistance Assistive Devices Assistive Device Gait Belt,Front Wheeled Walker Comments Gait Ability Comments mobility to chiar OT- Balance Assessment Sitting Balance and Reactions Static Sitting Balance Ability Good Dynamic Sitting Balance Ability Fair M8 OT- IP Objective Assessments Start: 07/09/19 15:39 Freq: Status: Active Protocol: Document 07/09/19 15:39 CGR (Rec: 07/09/19 16:02 CGR [id number]) OT Gross Range of Motion Upper Extremity Range of Motion Assessment Within Functional Limits OT Strength Upper Extremity Strength Assessment Within Functional Limits Comments Strength Comments grossly 4/5 OT- Coordination Assessment Upper Extremity Finger to Nose Test Within Functional Limits Finger Tapping Test Within Functional Limits OT-Muscle Tone Assessment Muscle Tone WNL Yes OT Sensation Assessment Comments Summary Comments Pt states she has BLE neuropathy that is consistent post sx. Edema Edema Absent M9 OT- IP Assessment and Plan Start: 07/09/19 15:39 Freq: Status: Active Protocol: Document 07/09/19 15:39 CGR (Rec: 07/09/19 16:02 CGR [id number]) OT Summary Assessment and Plan Potential Rehabilitation Potential Good Analytic Complexity at Evaluation Low Summary OT Impairments Pain,Balance,Functional Mobility,Self-Feeding,Grooming ,Dressing,Toileting,Bathing, Toilet Transfers,Shower Transfers,Activity Tolerance Progress Towards Goals Slow Progress due to Pain,Slow Progress due to Activity Tolerance Assessment Summary Pt presents as a low complexity evaluation s/p L4-5 TLIF. Pt has significant assist from friends and a neighbor prior to admit and plans to have a friend come to stay with her for 2 weeks upon discharge. Pt currently appropriate for SNF vs home depending on progress. Pt will benefit from OT services while hospitalized. Needs LB dressing training. Goals Self-Feeding Goal Independent Grooming Goal Independent Dressing Goal Independent,Electronic Instrument Trades Worker,Sock Aid Toileting Goal Independent Bathing Goal Minimal Assistance,Grab Bars, Hand Held Shower Sprayer Toilet Transfer Goal Independent,ADA High Toilet Shower Transfer Goal Standby Assistance,Walk-in Shower Days to Meet Goals 3 Frequency of Treatment Frequency Of Treatment Once a Day Treatment Plan OT Treatment Plan ADL Training,Functional Mobility,Patient/Family Education,Discharge Planning Other Treatment Recommendations and Next LB dressing training. Treatment Focus Discharge Recommendations OT Discharge Recommendations Home with Assistance,SNF Rehab Other Discharge Recommendations Pt states she has a friend that can stay with her for 2 weeks. If caregiver training goes well and pt continues to progress then she may be able to go home vs SNF. Transportation Needs at Discharge Private Vehicle
--- NOTE | 2019-07-09 13:47 | CM.DANOTE ---
DCP assessment: EMR reviewed: Patient is a 69 yr old female who was admitted for multiple level spinal surgery preformed by Dr. TIERNEY. PCP is Dr. Valente. CM/RN met with patient at the bedside and explained Role. Patient was alert and oriented x3 during CM/ RN visit. Patient currently lives in an apartment in [place]. Patient is Independent with dressing but needs assistance with showering and grooming. Patients neighbor surinder is her Caregiver and she receives meals on wheels. Patient Does not want to go to SNF but is open to HH services if she needs them. patients friend jhoana is coming to stay with her for three weeks to help surinder in providing patient with care during her recovery. PT and OT evaluations pending. I: Medicare and ESKY Plan: [facility] and her caregiver surinder and friend jhoana to help with her recovery. F2F signed and clinicals faxed. just need D/C summary sent. Gogo Rose RN Discharge Planning/Care Management CM Discharge Assessment Start: 07/09/19 13:44 Freq: Status: Active Protocol: Document 07/09/19 13:44 HS (Rec: 07/09/19 13:47 HS [id number]) Discharge Planning Assessment Assigned Social Security Assessor Gogo Rose Rn DPOA/Assigned Designee Name Surinder Belcher (caregiver) Contact Information [phone] Advance Directives? No History Provided By Patient,Medical Record Has Patient been admitted in last 30 No days? Prior Living Arrangements Mobile home Household Members none Type of transporation used prior to Relies on Others admit Independent with ADL's No: has caregiver Is patient alert and oriented? Yes Needs Assistance With Bathing,Grooming,Meal Prep Comment has meals on wheels Caregiver for Another No DME Already Rented / Owned Elevated Toilet Seat,FWW / Walker,Cane Patient/Family Preference Home with Home Health Discharge Plan Home with Home Health Referrals Initiated Home Health If patient plan is home with home health Yes : Has signed face to face form been completed? Medicare Choice List Provided Yes SNF/HH Preference patient choose [facility] Contact Name/ Has Agency SNF been contacted Yes Whiteboard Updated in Patient Room with Yes name and ext. # of Social Security Assessor Review Status In Process Next Review Type Continued Stay Review Pre-Anesthesia Assessment Start: 06/27/19 13:54 Freq: Status: Active Protocol: Document 06/27/19 13:54 [facility] (Rec: 06/27/19 15:04 [facility] [id number]) Pre-Anesthesia Assessment Patient Information Reviewed Via Phone Assessment Assessment Completed With Patient Diagnostic Results BMP/CMP,CBC,EKG Primary Care Provider Zeke Valente Seen Specialist in Last 12 Months Yes Specialist Seen [employer] Truck Driver,Chuck Wagon Cook, Orthopedist,Scaffold Setter, Other Comment Rheumatology Primary Language Romanian Viscosity Worker Required No Height 152.4 cm Weight 81.647 kg Body Mass Index (BMI) 35.2 Hearing Ability Normal Visual Assist Glasses Dentition Type Teeth, Natural Present,Teeth, Broken,Teeth, Missing Barriers to Learning None Other Aids No Hx Anesthesia Reactions Yes: PONV as a child Hx Family Anesthesia Reaction Yes: Brother PONV Hx Malignant Hyperthermia No Hx Blood Transfusions Yes: s/p chemotherapy Hx Blood Transfusion Reaction No Anesthesia Review Requested Yes: PAC courtesy re: Comorbidities alcohol intake current alcohol intake frequency holidays/special occasions only Smoking Status Never smoker Substance Use Type does not use Pain Present Pain Reported Musculoskeletal Symptoms Abnormal Gait,Back Pain, Difficulty Walking,Joint Pain, Muscle Weakness,Numbness, Radiating Pain into Limb History of Falling (Recent or History of Yes ) Patient is completely paralyzed or No completely immobile Prosthesis or Orthotic Device Front Wheel Walker Mental Status Oriented to own ability Is patient on oxygen? No Does patient have KING/SOB Yes: IKNG r/t asthma, interstitial lung dz Hx Sleep Apnea No Currently Taking a Beta Alyse No Can You Climb a Flight of Stairs Without No SOB Hx Chest Pain No Hx SOB Yes: KING r/t asthma, interstitial lung dz Hx Syncope or Dizziness No Anti-Coagulant Therapy No Has a Shift Supervisor Film Processing No Cardiac Testing Yes: Echo @ [facility] 11/19/18 EF 60- 65%, no sig change from prev Hx Pacemaker/ICD No Pacemaker Rep Required? No Cardiac Clearance Received Not Applicable Comment Chronic cough Diet Type At Home Diabetic dysphagia Yes: Occasional liquids and solids Gastrointestinal Symptoms Diarrhea,Reflux Bladder Pattern Incontinent,Urgency Urinary Catheter Present No Hx Urinary Self Catheterization No Diabetes Yes HgbA1C 7.3 Date 06/08/19 Patient No Lactating No Hx Drug Resistant Organism No Presence of External or Internal Medical Yes: Bilat knee prosthesis, Devices bilat eye lens Ferguson exposure No Have you had any close contact with No someone diagnosed with NOVEL CORONAVIRUS ? Have you traveled outside the [place] States in the last 30 days? Marital Status Lives With none Prior Living Arrangements Mobile home Number of Floors (Floors) One Floor Support System Friend(s) Does the Patient Have Assistance After Yes: Friends will stay w/pt to Surgery assist with care at DC Patient Discharge Plan Description Return Home Comment Pt advised overnight length of stay per surgeon Feels Safe in Current Environment Yes Been Physically Hurt or Threatened By a No Person in Current Environment Do you have thoughts of harming yourself None or others? Are you currently considering suicide? No Do you have a plan to hurt yourself or No Plan others? Do You Have Any Spiritual Beliefs That No May Affect Your HC Choices? Do You Have Any Cultural Practices That No May Affect Your HC Choices? Spiritual Referral None Comment Adventist Who Can We Speak to About Patient's Care Family, friends Identifying Code for Release of Patient Declines to issue Information Health Care Proxy/Next of Kin Surinder (friend) Health Care Proxy Emergency Contact Name Surinder (friend) Emergency Contact Advance Directives? No Power of Religious Educator No PAC Instructions Diabetes instructions,Durable medical equipment,Medications to take/avoid,Nasal antibiotic ,No ETOH/petroleum product on skin DOS,NPO,Post-op transportation,Pre-surgical wash,Sturdy shoes/comfortable clothes,Do not bring valuables and remove jewelry
--- NOTE | 2019-07-09 14:25 | PT.IPTN ---
Current Diagnoses Spondylolisthesis, lumbar region (07/08/19) Other spondylosis with radiculopathy, lumbosacral region (07/08/19) Spinal stenosis, lumbosacral region (07/08/19) Surgery Performed Operation Date: 07/08/19 12:15 Actual Procedures p L4-5,L5-S1 TLIF with posterior instrumentation(Not Applicable) - Tanja Page MD Physical Therapy Treatment Note M2 PT-IP Current Condition Start: 07/09/19 13:47 Freq: NEEDED Status: Active Protocol: Document 07/09/19 11:01 AB (Rec: 07/09/19 14:09 AB [id number]) Physical Therapy Current Condition Current Condition Evaluation Date 07/09/19 Treatment Diagnosis s/p L4-S1 fusion/lami; difficulty in walking Onset Date 07/08/2019 Precautions Lumbar Precautions Log Roll,No Twisting,Limit Bending,Lifting Restriction of 10 lbs,Gait Belt above Incisional Area M3 PT-IP Subjective Start: 07/09/19 13:47 Freq: NEEDED Status: Active Protocol: Document 07/09/19 14:25 AB (Rec: 07/09/19 15:44 AB [id number]) Subjective Physical Therapy Visit Type Type Treatment Note Visit Start Time 14:25 Visit Stop Time 14:45 Total Visit Minutes 20 Number of SPARE PARTS CLERK Visits 0 Physical Therapy Visit Comments Patient Comments pt requesting to go back to bed Therapy Pain Assessment Pain When Pain Assessed At Rest Pain Present Pain Present Pain Reported Location back Intensity 4 Scale Used Numeric (1 - 10) Pain Management Techniques Re-positioning,Timing of Activity with Medications M4 PT-IP Mobility and Gait Start: 07/09/19 13:47 Freq: NEEDED Status: Active Protocol: Document 07/09/19 14:25 AB (Rec: 07/09/19 15:44 AB [id number]) PT-Bed Mobility Assessment Rolling Type of Rolling Log Rolling Level of Assist Maximal Assistance,1 Person Assistance Sit to Supine Sit to Supine Maximum Assistance,1 Person Assistance,Bedrails Scooting Scooting to Edge of Bed Standby Assistance PT-Transfer Assessment Sit to and From Stand Sit to and from Stand Moderate Assistance,1 Person Assistance,Use of Upper Extremities Equipment Transfer Assistive Device Gait Belt,Front Wheeled Walker Orthotic/Prosthetic Devices or Brace: No Transfers Transfer Destination Bed Transfer Technique used FWW Transfer Ability Level of Assist Moderate Assistance,1 Person Assistance,Use of Upper Extremities Comments Mobility Comments completed sit to stand from the chair mod A and max cues. ambulated in room using FWW ~ 10 ft. sat on EOB and completed sit to supine log roll max A to elevated LE up to bed and required cues for techniques. max A for log rolling to supine. positioned pt in bed. call light and table placed within reach. Gait Assessment Gait Gait Assistance Required: Moderate Assistance,1 Person Assist Distance (Feet) 10 Able to Maintain Weight Bearing Status Yes During Gait Assistive Devices Assistive Device Gait Belt,Front Wheeled Walker Orthotic/Prosthetic Devices or Brace: No Gait Deviations General Gait Pattern Antalgic,Decreased Stride Length,Decreased Feet Clearance Factors Limiting Gait Function Factors Limiting Gait Function Decreased Activity Tolerance, Decreased Sensation,Decreased Strength,Limited Range of Motion,Pain,Poor Balance,Poor Safety Awareness,Respiratory Distress M5 PT-IP Objective Assessments Start: 07/09/19 13:47 Freq: NEEDED Status: Active Protocol: Document 07/09/19 11:01 AB (Rec: 07/09/19 14:09 AB [id number]) Orientation Orientation/Cognition Level of Alertness Alert Orientation Name,Place,Situation Safety Awareness Decreased Safety Awareness Memory Description Short Term Impaired Gross Range of Motion Lower Extremity ROM Assessment Within Functional Limits Strength Lower Extremity Strength Assessment Bilaterally Impaired Hip 3+/5 Knee 3+/5 Sensation Assessment Sensation Gross Sensation Right LE Impaired,Left LE Impaired Light Touch Impaired Proprioception (Position) Impaired Sensation Description Numbness Muscle Tone Muscle Tone WNL No M6 PT-IP Treatment Start: 07/09/19 13:47 Freq: NEEDED Status: Active Protocol: Document 07/09/19 14:25 AB (Rec: 07/09/19 15:44 AB [id number]) Physical Therapy Treatment Education Education Provided Precautions,Safety M7 PT-IP Assessment and Plan Start: 07/09/19 13:47 Freq: NEEDED Status: Active Protocol: Document 07/09/19 14:25 AB (Rec: 07/09/19 15:44 AB [id number]) PT Summary Assessment and Plan Potential Rehabilitation Potential Good Summary Impairments Pain,ROM,Strength,Balance, Coordination,Sensation,Bed Mobility,Transfers,Gait, Activity Tolerance Progress Towards Goals Slow Progress due to Pain,Slow Progress due to Activity Tolerance Assessment Summary pt requires mod to max A and max cues using FWW. pt will have her friends to assist her . informed regarding caregiver training and stated that her friends will come in tomorrow but no specific time. will conduct caregiver training when appropriate as well as stair climbing training. d/c plan depending if caregiver will be able to assist pt safely. will continue to assess progress. Goals Bed Mobility Goal Standby Assistance Transfer Goal Standby Assistance,Front Wheeled Walker Gait Goal Standby Assistance,Front Wheel Walker Gait Distance 100 Other Goals up/down 3 steps SPC/GROCERY BUYER min A Days to Meet Goals 5 Frequency of Treatment Frequency Of Treatment Twice a Day Treatment Plan Physical Therapy Treatment Plan Bed Mobility Training,Transfer Training,Gait Training, Therapeutic Exercise,Balance Retraining,Post Op Education, Discharge Planning,Hot or Cold Pack,Neuromuscular Re-ed, Coordination Retraining,Manual Therapy Other Recommendations and Next Treatment caregiver training and stair Focus training when appropriate Recommendations To Nursing Amount of Assist Needed 1 Person Assist Discharge Recommendations PT Discharge Recommendations Home with 24/7 Assist,Home Health,SNF Rehab Other Discharge Recommendations depending on progress: SNF vs home 24/7 and HHPT. Equipment Needed for Home Before FWW if unable to borrow one Discharge Transportation Needs at Discharge Private Vehicle,Wheelchair/ Cabulance
[2019-07-09] MEDS: MONTELUKAST 10 MG TABLET PO (20:46)
[2019-07-09] MEDS: SENNOSIDES 8.6 MG TABLET 17.2 MG PO (20:46)
[2019-07-09] MEDS: ACETAMINOPHEN 325 MG TABLET 650 MG PO (20:46)
[2019-07-09] MEDS: HYDROXYCHLOROQUINE 200 MG TABLET 400 MG PO (20:46)
[2019-07-09] MEDS: SODIUM CHLORIDE 0.9% FLUSH 10 ML IV (20:48)
--- NOTE | 2019-07-09 22:29 | PC.NURSE ---
Evening note: Dorene had a good night, VS stable. 1L O2 sat 94%, no SOB observed. Left lung sounds are coarse with expiratory wheeze/rhonchi. She has an occasional coarse cough. Reports using IS, would not use while i was in room. Reports little to no back pain, refused pain med more than once tonight. Assisted to reposition in bed, HOB at 45 degrees[address] Back [address]sg is CDI. Wearing bilateral foot SCD's. Perez patent with clear yellow output, patient encouraged to drink plenty of fluids, IV saline locked at 1600. Fall precautions in place, alarm active for safety.
[2019-07-10] VITALS (7 sets, daily range): BP systolic 106–122; BP diastolic 52–63; PULSE 91–102; RESP 17–20; TEMP 36.3–37.4; O2SAT 88–97
[2019-07-10] MEDS: ACETAMINOPHEN 325 MG TABLET 650 MG PO ×2 (04:50→18:35)
--- NOTE | 2019-07-10 04:56 | PC.NURSE ---
Drowsy all shift & confused this morning asked her she at & she replied I'm at home. Checked her CBG 107, pain level @ -06/06. Requested Tylenol 650 mg. PO admin. Will monitor.
--- NOTE | 2019-07-10 06:52 | PC.NURSE ---
Chris HAILE'd @ 1513, tolerated procedure well. Pt. is still very drowsy & weak. Will report to the day RN.
[2019-07-10] MEDS: FOLIC ACID 1 MG TABLET PO (09:41)
[2019-07-10] MEDS: GABAPENTIN 300 MG CAPSULE 600 MG PO ×3 (09:41→20:36)
[2019-07-10] MEDS: LORATADINE 10 MG TABLET PO (09:41)
[2019-07-10] MEDS: ROSUVASTATIN 10 MG TABLET PO (09:41)
[2019-07-10] MEDS: METOCLOPRAMIDE HCL 10 MG TABLET PO ×3 (09:41→20:36)
[2019-07-10] MEDS: MAGNESIUM HYDROXIDE 30 ML UDC PO (09:41)
[2019-07-10] MEDS: PANTOPRAZOLE 40 MG TABLET PO (09:41)
[2019-07-10] MEDS: FUROSEMIDE 20 MG TABLET PO (09:41)
[2019-07-10] MEDS: POTASSIUM CHLORIDE 20 MEQ TAB PO (09:41)
[2019-07-10] MEDS: DOCUSATE 100 MG CAPSULE PO ×2 (09:41→20:35)
[2019-07-10] MEDS: SODIUM CHLORIDE 0.9% FLUSH 10 ML IV ×2 (09:43→20:38)
[2019-07-10] MEDS: MYCOPHENOLATE MOFETIL 500 MG TABLET 1000 MG PO ×2 (09:43→20:38)
[2019-07-10] MEDS: predniSONE 5 MG TABLET PO (09:43)
[2019-07-10] MEDS: NITROFURANTOIN ER 100 MG CAPSULE PO ×2 (09:43→20:37)
[2019-07-10] MEDS: INSULIN GLARGINE 100 UNIT/ML 3ML PEN 15 UNIT SUBCUT (09:44)
[2019-07-10] MEDS: ACYCLOVIR 400 MG TABLET PO ×2 (10:01→20:43)
--- NOTE | 2019-07-10 10:39 | PT.IPTN ---
Current Diagnoses Spondylolisthesis, lumbar region (07/08/19) Other spondylosis with radiculopathy, lumbosacral region (07/08/19) Spinal stenosis, lumbosacral region (07/08/19) Surgery Performed Operation Date: 07/08/19 12:15 Actual Procedures p L4-5,L5-S1 TLIF with posterior instrumentation(Not Applicable) - Tanja Page MD Physical Therapy Treatment Note M2 PT-IP Current Condition Start: 07/09/19 13:47 Freq: NEEDED Status: Active Protocol: Document 07/09/19 11:01 AB (Rec: 07/09/19 14:09 AB [id number]) Physical Therapy Current Condition Current Condition Evaluation Date 07/09/19 Treatment Diagnosis s/p L4-S1 fusion/lami; difficulty in walking Onset Date 07/08/2019 Precautions Lumbar Precautions Log Roll,No Twisting,Limit Bending,Lifting Restriction of 10 lbs,Gait Belt above Incisional Area M3 PT-IP Subjective Start: 07/09/19 13:47 Freq: NEEDED Status: Active Protocol: Document 07/10/19 10:26 AW (Rec: 07/10/19 10:39 AW [id number]) Subjective Physical Therapy Visit Type Type Treatment Note Visit Start Time 09:48 Visit Stop Time 10:15 Total Visit Minutes 27 Number of BALANCE STAFF INSPECTOR Visits 0 Physical Therapy Visit Comments Patient Comments Pt willing to mobilize with PT Therapy Pain Assessment Pain When Pain Assessed During Mobility Pain Present Pain Present Pain Reported Location Bilateral Hip Intensity 8 Scale Used 6/10 at rest; 8/10 with mobility Pain Management Techniques Distraction,Timing of Activity with Medications M4 PT-IP Mobility and Gait Start: 07/09/19 13:47 Freq: NEEDED Status: Active Protocol: Document 07/10/19 10:26 AW (Rec: 07/10/19 10:39 AW [id number]) PT-Bed Mobility Assessment Rolling Type of Rolling Log Rolling,Roll to Left Level of Assist Moderate Assistance,1 Person Assistance Supine to Sit Supine to Sit Moderate Assistance,1 Person Assistance,Bedrails Scooting Scooting to Edge of Bed Moderate Assistance PT-Transfer Assessment Sit to and From Stand Sit to and from Stand Moderate Assistance,1 Person Assistance,Use of Upper Extremities Equipment Transfer Assistive Device Gait Belt,Front Wheeled Walker Orthotic/Prosthetic Devices or Brace: No Transfers Transfer Destination Chair Transfer Technique Stand Step Pivot Transfer Ability Level of Assist Moderate Assistance,1 Person Assistance Comments Mobility Comments Pt completed log roll to her left side and supine to sit mod A x 1 and max verbal and tactile cues for sequencing. SpO2 on 2L/min was 87% sitting EOB; PT titrated flow up to 3L/min after which pt held SpO2 ~89% during mobility. Pt stood mod A x 1 using FWW for ~ 1 min before fatiguing and requesting to sit EOB. After rest break, pt stood again mod A x 1 and transferred to the chair, walking ~2 feet requiring mod A to advance the walker and max cues for upright posture and safe use of FWW. Pt transferred to the chair mod A with poor eccentric control of descent. She was positioned there with call light and all needs in reach. pulxe oximeter in place for monitoring. PT notified RN of pt's location and O2 flow rate. Gait Assessment Gait Gait Assistance Required: Moderate Assistance Distance (Feet) 2 Able to Maintain Weight Bearing Status Yes During Gait Assistive Devices Assistive Device Gait Belt,Front Wheeled Walker Orthotic/Prosthetic Devices or Brace: No Gait Deviations General Gait Pattern Antalgic,Decreased Stride Length,Decreased Feet Clearance,Flexed Trunk Factors Limiting Gait Function Factors Limiting Gait Function Decreased Activity Tolerance, Decreased Sensation,Decreased Strength,Limited Range of Motion,Pain,Poor Balance,Poor Safety Awareness,Respiratory Distress Comments Gait Comments Refer to mobility comments Stair Climbing Assessment Comments Stair Climbing Comments Not assessed. Pt unable at this time. M5 PT-IP Objective Assessments Start: 07/09/19 13:47 Freq: NEEDED Status: Active Protocol: Document 07/09/19 11:01 AB (Rec: 07/09/19 14:09 AB [id number]) Orientation Orientation/Cognition Level of Alertness Alert Orientation Name,Place,Situation Safety Awareness Decreased Safety Awareness Memory Description Short Term Impaired Gross Range of Motion Lower Extremity ROM Assessment Within Functional Limits Strength Lower Extremity Strength Assessment Bilaterally Impaired Hip 3+/5 Knee 3+/5 Sensation Assessment Sensation Gross Sensation Right LE Impaired,Left LE Impaired Light Touch Impaired Proprioception (Position) Impaired Sensation Description Numbness Muscle Tone Muscle Tone WNL No M6 PT-IP Treatment Start: 07/09/19 13:47 Freq: NEEDED Status: Active Protocol: Document 07/10/19 10:26 AW (Rec: 07/10/19 10:39 AW [id number]) Physical Therapy Treatment Education Education Provided Precautions,Safety M7 PT-IP Assessment and Plan Start: 07/09/19 13:47 Freq: NEEDED Status: Active Protocol: Document 07/10/19 10:26 AW (Rec: 07/10/19 10:39 AW [id number]) PT Summary Assessment and Plan Summary Impairments Pain,ROM,Strength,Balance, Coordination,Sensation,Bed Mobility,Transfers,Gait, Activity Tolerance Progress Towards Goals Slow Progress due to Pain,Slow Progress due to Activity Tolerance Assessment Summary Pt required mod A with all mobility, demonstrating reduced activity tolerance with SpO2 dropping to 87% on 2L/min with minimal activity. Pt unable to contact her caregivers at this time but will continue to try to have them here for afternoon session. At this time, PT recommends SNF though pt may progress enough to safely consider home with assist and HH PT. Will continue to assess . Goals Bed Mobility Goal Standby Assistance Transfer Goal Standby Assistance,Front Wheeled Walker Gait Goal Standby Assistance,Front Wheel Walker Gait Distance 100 Other Goals up/down 3 steps SPC/INVESTMENT BROKER min A Days to Meet Goals 5 Frequency of Treatment Frequency Of Treatment Twice a Day Treatment Plan Physical Therapy Treatment Plan Bed Mobility Training,Transfer Training,Gait Training, Therapeutic Exercise,Balance Retraining,Post Op Education, Discharge Planning,Hot or Cold Pack,Neuromuscular Re-ed, Coordination Retraining,Manual Therapy Other Recommendations and Next Treatment caregiver training and stair Focus training when appropriate Recommendations To Nursing Amount of Assist Needed 2 Person Assist Discharge Recommendations PT Discharge Recommendations Home with 24/7 Assist,Home Health,SNF Rehab Other Discharge Recommendations depending on progress: SNF vs home 24/7 and HHPT. Equipment Needed for Home Before FWW if unable to borrow one Discharge Transportation Needs at Discharge Private Vehicle,Wheelchair/ Cabulance
[2019-07-10] MEDS: MORPHINE IR 15 MG TABLET 30 MG PO (11:25)
--- NOTE | 2019-07-10 14:46 | PC.NURSE ---
Addendum entered by Mariam Rosales R.N. 07/10/19 15:51: Patient unable to get OOB to void. We used bedpan, but she was incontinent of large amounts of urine as well (necessitating full linen change X2 despite usual precautions in place). Urinating with frequency, but denied any post-void urgency. Patient very uncomfortable from all of the turning to get changed and on/off bedpan, would like fish back if possible. This conventional underwriter called and spoke w/ Dr Green via RN in the OR and informed of all of the above. Per Dr Green, put a diaper on the patient and bladder scan her every four hour. Order written for Q4H bladder scan and passed on to mattie shift to do first scan after patient's next void. Patient was informed of new plan and, although not excited, she was agreeable. Original Note: Skin: Earlier today patient was noted to have skin near gluteal cleft that was dark purplish in color and looked like an old scar. Patient unsure what from. This afternoon, skin at that site appears to be blistering a bit. Patient denies pain or discomfort at this site. Patient has been on/off bedpan numerous times and is also incontinent of urine and has been changed multiple times. Plan to keep skin as clean and dry as possible and to assist w/ reposition at least Q2H. Barrier cream applied.
--- NOTE | 2019-07-10 15:48 | PC.NURSE ---
1430- This DEHYDRATOR TENDER noticed slight raised irritation above bottom region near the midline. Notified RN. Pt denied any pain when area was touched. Pt has been on and off the bedpan multiple times. Pt has been incontinent multiple times as well as continent on bedpan.
--- NOTE | 2019-07-10 16:37 | PT.IPTN ---
Current Diagnoses Spondylolisthesis, lumbar region (07/08/19) Other spondylosis with radiculopathy, lumbosacral region (07/08/19) Spinal stenosis, lumbosacral region (07/08/19) Surgery Performed Operation Date: 07/08/19 12:15 Actual Procedures p L4-5,L5-S1 TLIF with posterior instrumentation(Not Applicable) - Tanja Page MD Physical Therapy Treatment Note M2 PT-IP Current Condition Start: 07/09/19 13:47 Freq: NEEDED Status: Active Protocol: Document 07/09/19 11:01 AB (Rec: 07/09/19 14:09 AB [id number]) Physical Therapy Current Condition Current Condition Evaluation Date 07/09/19 Treatment Diagnosis s/p L4-S1 fusion/lami; difficulty in walking Onset Date 07/08/2019 Precautions Lumbar Precautions Log Roll,No Twisting,Limit Bending,Lifting Restriction of 10 lbs,Gait Belt above Incisional Area M3 PT-IP Subjective Start: 07/09/19 13:47 Freq: NEEDED Status: Active Protocol: Document 07/10/19 16:26 AW (Rec: 07/10/19 16:37 AW [id number]) Subjective Physical Therapy Visit Type Type Treatment Note Visit Start Time 15:18 Visit Stop Time 15:37 Total Visit Minutes 19 Number of SHAREMILKER Visits 0 Physical Therapy Visit Comments Patient Comments Pt has friends visiting in the room but is willing to participate with PT. Therapy Pain Assessment Pain When Pain Assessed During Mobility Pain Present Pain Present Pain Reported Location back Intensity 8 Scale Used Numeric (1 - 10) Pain Management Techniques Re-positioning,Timing of Activity with Medications M4 PT-IP Mobility and Gait Start: 07/09/19 13:47 Freq: NEEDED Status: Active Protocol: Document 07/10/19 16:26 AW (Rec: 07/10/19 16:37 AW [id number]) PT-Bed Mobility Assessment Rolling Type of Rolling Log Rolling,Roll to Left Level of Assist Moderate Assistance,1 Person Assistance Supine to Sit Supine to Sit Moderate Assistance,1 Person Assistance,Bedrails Scooting Scooting to Edge of Bed Minimal Assistance PT-Transfer Assessment Sit to and From Stand Sit to and from Stand Moderate Assistance,1 Person Assistance,Use of Upper Extremities Equipment Transfer Assistive Device Gait Belt,Front Wheeled Walker Transfers Transfer Destination Chair Transfer Technique Stand Step Pivot Transfer Ability Level of Assist Minimal Assistance,1 Person Assistance,Use of Upper Extremities Comments Mobility Comments Reviewed spinal precautions with the patient and she was able to recall all three. She completed log roll and supine to sit mod A x 1 with slight decrease in need for cues. She stood and transferred to chair mod A x 1 with FWW. She stated she was in too much pain to attempt walking further. Pt was positioned in the chair with call light and needs within reach, friends visiting in room. Gait Assessment Gait Gait Assistance Required: Moderate Assistance,1 Person Assist Assistive Devices Assistive Device Gait Belt,Front Wheeled Walker Orthotic/Prosthetic Devices or Brace: No Gait Deviations General Gait Pattern Antalgic,Decreased Stride Length,Decreased Feet Clearance,Flexed Trunk Factors Limiting Gait Function Factors Limiting Gait Function Decreased Activity Tolerance, Decreased Sensation,Decreased Strength,Limited Range of Motion,Pain,Poor Balance,Poor Safety Awareness,Respiratory Distress Comments Gait Comments Transfer only. Refer to mobility comments Stair Climbing Assessment Comments Stair Climbing Comments Not assessed. Pt unable at this time. M5 PT-IP Objective Assessments Start: 07/09/19 13:47 Freq: NEEDED Status: Active Protocol: Document 07/09/19 11:01 AB (Rec: 07/09/19 14:09 AB [id number]) Orientation Orientation/Cognition Level of Alertness Alert Orientation Name,Place,Situation Safety Awareness Decreased Safety Awareness Memory Description Short Term Impaired Gross Range of Motion Lower Extremity ROM Assessment Within Functional Limits Strength Lower Extremity Strength Assessment Bilaterally Impaired Hip 3+/5 Knee 3+/5 Sensation Assessment Sensation Gross Sensation Right LE Impaired,Left LE Impaired Light Touch Impaired Proprioception (Position) Impaired Sensation Description Numbness Muscle Tone Muscle Tone WNL No M6 PT-IP Treatment Start: 07/09/19 13:47 Freq: NEEDED Status: Active Protocol: Document 07/10/19 16:26 AW (Rec: 07/10/19 16:37 AW [id number]) Physical Therapy Treatment Education Education Provided Precautions,Safety Other Treatments Other Treatment Performed Reviewed precautions with pt able to recall all. M7 PT-IP Assessment and Plan Start: 07/09/19 13:47 Freq: NEEDED Status: Active Protocol: Document 07/10/19 16:26 AW (Rec: 07/10/19 16:37 AW [id number]) PT Summary Assessment and Plan Summary Impairments Pain,ROM,Strength,Balance, Coordination,Sensation,Bed Mobility,Transfers,Gait, Activity Tolerance Progress Towards Goals Slow Progress due to Pain,Slow Progress due to Activity Tolerance Assessment Summary Pt had improved SpO2 during mobility this session, starting at 98% on 3L/min and ending at 95% on 2L/min after transfer. Pt continues to be limited by pain but is slowly progressing. Discussed SNF recommendation with pt who is aware and agreeable. Goals Bed Mobility Goal Standby Assistance Transfer Goal Standby Assistance,Front Wheeled Walker Gait Goal Standby Assistance,Front Wheel Walker Gait Distance 100 Other Goals up/down 3 steps SPC/FINANCIAL INSTITUTION TREASURER min A Days to Meet Goals 5 Frequency of Treatment Frequency Of Treatment Twice a Day Treatment Plan Physical Therapy Treatment Plan Bed Mobility Training,Transfer Training,Gait Training, Therapeutic Exercise,Balance Retraining,Post Op Education, Discharge Planning,Hot or Cold Pack,Neuromuscular Re-ed, Coordination Retraining,Manual Therapy Other Recommendations and Next Treatment - ambulation Focus - caregiver training and stair training when appropriate if discharging to home Recommendations To Nursing Amount of Assist Needed 1 Person Assist,2 Person Assist Discharge Recommendations PT Discharge Recommendations Home with 17/11 Assist,Home Health,SNF Rehab Other Discharge Recommendations SNF most likely Equipment Needed for Home Before FWW if going home; otherwise, Discharge defer to SNF Transportation Needs at Discharge Private Vehicle,Wheelchair/ Cabulance
[2019-07-10] MEDS: INSULIN ASPART 100 UNIT/ML INSULN PEN SUBCUT ×2 (16:49→16:50)
--- NOTE | 2019-07-10 17:45 | PM.PN.1 ---
Subjective Subjective Date Patient Seen: 07/10/19 Time Patient Seen: 17:45 Interval history: POD #2 s/p L4-5, L5-S1 Postero-lateral and posterior interbody fusion w Dr. Page. Patient complains of mild-moderate pain in lower back. 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 Voiding with a fish catheter. Has not mobilized with PT. Denies fever, chills, dry cough, shortness of breath, chest pain, nausea, vomiting, numbness, tingling. Exam Vital Signs (past 8 hours): - 07/10/19 11:20 07/10/19 15:45 Temperature 97.3 F L 98.7 F Pulse Rate 91 H 94 H Respiratory Rate 18 17 Blood Pressure 106/57 L 122/63 Pulse Oximetry 95 95 Oxygen Delivery Method Nasal Cannula Oxygen Flow Rate 2 Narrative Exam Narrative: A&Ox3, SCDs in place, fish catheter in place. Able to actively dorsiflex/plantar flex BL. Sensory function grossly intact to light touch in LE Bl except feet BL. Calves warm, soft, compressible, NTTP. Dorsalis pedis 2+ BL. Objective Labs Result Diagrams: 07/09/19 05:50 Assessment & Plan Assessment & Plan narrative: POD#2 Doing well Postoperative plan narrative: Pain control - continue morphine PO, tylenol and gabapentin for pain. Continue mobilizing with PT Continue SCDs for DVT prophylaxis Discharge home likely in next 24 hours Time Spent With Patient Time with patient: less than 15 minutes
[2019-07-10] MEDS: MONTELUKAST 10 MG TABLET PO (20:35)
[2019-07-10] MEDS: SENNOSIDES 8.6 MG TABLET 17.2 MG PO (20:35)
[2019-07-10] MEDS: HYDROXYCHLOROQUINE 200 MG TABLET 400 MG PO (20:36)
--- NOTE | 2019-07-10 22:38 | PC.NURSE ---
a&ox3. 93% 2L. pt was too weak to transfer from chair to bed so we used the lift to get her back to bed. incontinent/continent of urine. she has urgency and frequency. PVR 9cc and 44cc. back dressing has some shadow drainage. q2turn. pt has some blisters to her L buttock. barrier cream applied. call light in reach. bed alarm active.
[2019-07-11] VITALS (10 sets, daily range): BP systolic 90–127; BP diastolic 47–92; PULSE 78–95; RESP 16–20; TEMP 36–37.9; O2SAT 90–98
--- NOTE | 2019-07-11 06:48 | PC.NURSE ---
Pt voided 75cc cristian urine around 0300 with a PVR scanned of 137mL; Then at 0630 pt had a medium sized incontinent brief and also voided 75cc cristian urine in bedpan. She was then bladder scanned for a PVR of 239mL T&P q2h with bed and pillow support
[2019-07-11] MEDS: INSULIN ASPART 100 UNIT/ML INSULN PEN SUBCUT ×4 (09:25→18:43)
[2019-07-11] MEDS: LOSARTAN 50 MG TABLET PO (09:26)
[2019-07-11] MEDS: ROSUVASTATIN 10 MG TABLET PO (09:26)
[2019-07-11] MEDS: FOLIC ACID 1 MG TABLET PO (09:26)
[2019-07-11] MEDS: PANTOPRAZOLE 40 MG TABLET PO (09:26)
[2019-07-11] MEDS: LORATADINE 10 MG TABLET PO (09:26)
[2019-07-11] MEDS: DOCUSATE 100 MG CAPSULE PO ×2 (09:26→21:53)
[2019-07-11] MEDS: INSULIN GLARGINE 100 UNIT/ML 3ML PEN 15 UNIT SUBCUT (09:26)
[2019-07-11] MEDS: POTASSIUM CHLORIDE 20 MEQ TAB PO (09:26)
[2019-07-11] MEDS: GABAPENTIN 300 MG CAPSULE 600 MG PO ×3 (09:27→21:53)
[2019-07-11] MEDS: METOCLOPRAMIDE HCL 10 MG TABLET PO ×3 (09:27→21:52)
[2019-07-11] MEDS: predniSONE 5 MG TABLET PO (09:28)
[2019-07-11] MEDS: NITROFURANTOIN ER 100 MG CAPSULE PO ×2 (09:28→21:54)
[2019-07-11] MEDS: MYCOPHENOLATE MOFETIL 500 MG TABLET 1000 MG PO ×2 (09:28→21:54)
[2019-07-11] MEDS: SODIUM CHLORIDE 0.9% FLUSH 10 ML IV ×2 (09:28→21:54)
[2019-07-11] MEDS: ACYCLOVIR 400 MG TABLET PO ×2 (09:31→21:56)
[2019-07-11] MEDS: MORPHINE IR 15 MG TABLET 30 MG PO (09:40)
[2019-07-11] MEDS: ACETAMINOPHEN 325 MG TABLET 650 MG PO (09:42)
--- NOTE | 2019-07-11 11:50 | PT-IP ANOTE ---
Pt eating lunch, will check back with pt this afternoon.
--- NOTE | 2019-07-11 12:45 | PM.PNPO.1 ---
Subjective Subjective Date Patient Seen: 07/11/19 Time Patient Seen: 07:45 Interval history: POD #3 s/p L4-5, L5-S1 Postero-lateral and posterior interbody fusion w Dr. Page. Patient very slow to mobilize throughout her stay. She is requiring a iliana lift at times, and is not mobilizing out of bed. She is incontinent with urine. Her pain is well managed. Exam Vital Signs (past 8 hours): - 07/11/19 08:00 07/11/19 09:19 07/11/19 09:42 Temperature 100.3 F H 100.3 F H Pulse Rate 95 H Respiratory Rate 18 16 Blood Pressure 118/61 Pulse Oximetry 95 92 07/11/19 11:57 07/11/19 12:33 Temperature 97.6 F 97.7 F Pulse Rate 92 H Respiratory Rate 18 Blood Pressure 90/47 L Pulse Oximetry 92 Oxygen Delivery Method Room Air Oxygen Flow Rate 1 Narrative Exam Narrative: Patient lying in bed in NAD. She has 2L of O2 that she is wearing overnight. Dressing on back is CDI. Calves are soft, compressible, and nontender bilaterally. Shes able to actively dorisflex and plantarflex with encouragement. DP pulses symmetrical. Objective Labs Result Diagrams: 07/09/19 05:50 Assessment & Plan Post-op Postoperative Procedures: Procedures Operation Date: 07/08/19 12:15 Actual Procedures Side Surgeon p L4-5,L5-S1 TLIF with posterior instrumentation Not Applicable Tanja Page MD Patient will continue to mobilize with PT. ASA 81 mg BID for VTE prophylaxis as patient is not very mobile. She will continue to wear SCDs. Patient does not have any symptoms of coronavirus, she denies cough, and has been afebrile. She will likely need a SNF for recovery after surgery. If she has an improvement today she maybe able to go home with home health. Likely DC tomorrow.
--- NOTE | 2019-07-11 13:17 | PT.IPTN ---
Current Diagnoses Spondylolisthesis, lumbar region (07/08/19) Other spondylosis with radiculopathy, lumbosacral region (07/08/19) Spinal stenosis, lumbosacral region (07/08/19) Surgery Performed Operation Date: 07/08/19 12:15 Actual Procedures p L4-5,L5-S1 TLIF with posterior instrumentation(Not Applicable) - Tanja Page MD Physical Therapy Treatment Note M2 PT-IP Current Condition Start: 07/09/19 13:47 Freq: NEEDED Status: Active Protocol: Document 07/09/19 11:01 AB (Rec: 07/09/19 14:09 AB [id number]) Physical Therapy Current Condition Current Condition Evaluation Date 07/09/19 Treatment Diagnosis s/p L4-S1 fusion/lami; difficulty in walking Onset Date 07/08/2019 Precautions Lumbar Precautions Log Roll,No Twisting,Limit Bending,Lifting Restriction of 10 lbs,Gait Belt above Incisional Area M3 PT-IP Subjective Start: 07/09/19 13:47 Freq: NEEDED Status: Active Protocol: Document 07/11/19 13:17 CLB (Rec: 07/11/19 14:06 CLB [id number]) Subjective Physical Therapy Visit Type Type Treatment Note Visit Start Time 13:17 Visit Stop Time 13:45 Total Visit Minutes 28 Notes co-treat with OT Number of COURTESY BOOTH CASHIER Visits 1 Physical Therapy Visit Comments Patient Comments Pt willing to participate with theapy. Therapy Pain Assessment Pain When Pain Assessed During Mobility Pain Present Pain Present Pain Reported Location back Intensity 8 Scale Used Numeric (1 - 10) Pain Management Techniques Re-positioning,Timing of Activity with Medications M4 PT-IP Mobility and Gait Start: 07/09/19 13:47 Freq: NEEDED Status: Active Protocol: Document 07/11/19 13:17 CLB (Rec: 07/11/19 14:06 CLB [id number]) PT-Bed Mobility Assessment Rolling Type of Rolling Log Rolling,Roll to Left Level of Assist Moderate Assistance,1 Person Assistance Supine to Sit Supine to Sit Moderate Assistance,1 Person Assistance,Bedrails Scooting Scooting to Edge of Bed Minimal Assistance PT-Transfer Assessment Sit to and From Stand Sit to and from Stand Moderate Assistance,2 Person Assistance,Use of Upper Extremities Equipment Transfer Assistive Device Gait Belt,Front Wheeled Walker Transfers Transfer Destination Chair Transfer Technique Stand Step Pivot Transfer Ability Level of Assist Moderate Assistance,2 Person Assistance,Use of Upper Extremities Comments Mobility Comments Pt recalled 3/3 back precautions. Pt pain was 4/10 at rest, 5/10 with moving to EOB and 8/10 with weight bearing. Pt required Min A x2 for sit-stand from bed and Mod A x2 for sit-stand from chair . Pt required Mod A and assist with walker management during stand pivot. Pt was able to perform sit<>stand x2 from chair and only able to take 2 steps after second stand before she needed to sit . Pt required Max A x2 to scoot back in chair. Pt left in chair with all needs within reach, chair alarm unavailable per RN. Gait Assessment Gait Gait Assistance Required: Moderate Assistance,1 Person Assist Assistive Devices Assistive Device Gait Belt,Front Wheeled Walker Orthotic/Prosthetic Devices or Brace: No Gait Deviations General Gait Pattern Antalgic,Decreased Stride Length,Decreased Feet Clearance,Flexed Trunk Factors Limiting Gait Function Factors Limiting Gait Function Decreased Activity Tolerance, Decreased Sensation,Decreased Strength,Limited Range of Motion,Pain,Poor Balance,Poor Safety Awareness,Respiratory Distress Comments Gait Comments Pt able to take two steps before needing to sit down. Stair Climbing Assessment Comments Stair Climbing Comments Not assessed. Pt unable at this time. M5 PT-IP Objective Assessments Start: 07/09/19 13:47 Freq: NEEDED Status: Active Protocol: Document 07/09/19 11:01 AB (Rec: 07/09/19 14:09 AB [id number]) Orientation Orientation/Cognition Level of Alertness Alert Orientation Name,Place,Situation Safety Awareness Decreased Safety Awareness Memory Description Short Term Impaired Gross Range of Motion Lower Extremity ROM Assessment Within Functional Limits Strength Lower Extremity Strength Assessment Bilaterally Impaired Hip 3+/5 Knee 3+/5 Sensation Assessment Sensation Gross Sensation Right LE Impaired,Left LE Impaired Light Touch Impaired Proprioception (Position) Impaired Sensation Description Numbness Muscle Tone Muscle Tone WNL No M6 PT-IP Treatment Start: 07/09/19 13:47 Freq: NEEDED Status: Active Protocol: Document 07/10/19 16:26 AW (Rec: 07/10/19 16:37 AW [id number]) Physical Therapy Treatment Education Education Provided Precautions,Safety Other Treatments Other Treatment Performed Reviewed precautions with pt able to recall all. M7 PT-IP Assessment and Plan Start: 07/09/19 13:47 Freq: NEEDED Status: Active Protocol: Document 07/11/19 13:17 CLB (Rec: 07/11/19 14:06 CLB [id number]) PT Summary Assessment and Plan Summary Impairments Pain,ROM,Strength,Balance, Coordination,Sensation,Bed Mobility,Transfers,Gait, Activity Tolerance Progress Towards Goals Slow Progress due to Pain,Slow Progress due to Activity Tolerance Assessment Summary Pt SpO2 on 1L at start of tx 90% once pt was on EOB SP02 89 %. BP in sitting 125/68. Pt continues to require Mod A for all mobility and is unable to ambulate at this time. Pt will require SNF rehab to improve activity tolerance and functional mobility. Goals Bed Mobility Goal Standby Assistance Transfer Goal Standby Assistance,Front Wheeled Walker Gait Goal Standby Assistance,Front Wheel Walker Gait Distance 100 Other Goals up/down 3 steps SPC/CNC MILL PROGRAMMER min A Days to Meet Goals 5 Frequency of Treatment Frequency Of Treatment Twice a Day Treatment Plan Physical Therapy Treatment Plan Bed Mobility Training,Transfer Training,Gait Training, Therapeutic Exercise,Balance Retraining,Post Op Education, Discharge Planning,Hot or Cold Pack,Neuromuscular Re-ed, Coordination Retraining,Manual Therapy Recommendations To Nursing Amount of Assist Needed 1 Person Assist,2 Person Assist Discharge Recommendations PT Discharge Recommendations SNF Rehab Transportation Needs at Discharge Wheelchair/Cabulance
--- NOTE | 2019-07-11 13:42 | OT.IP.TRT ---
Current Diagnoses Spondylolisthesis, lumbar region (07/08/19) Other spondylosis with radiculopathy, lumbosacral region (07/08/19) Spinal stenosis, lumbosacral region (07/08/19) Surgery Performed Operation Date: 07/08/19 12:15 Actual Procedures p L4-5,L5-S1 TLIF with posterior instrumentation(Not Applicable) - Tanja Page MD Occupational Therapy Treatment Note M2 OT-IP Current Condition Start: 07/09/19 15:39 Freq: Status: Active Protocol: Document 07/09/19 15:39 CGR (Rec: 07/09/19 16:02 CGR [id number]) Occupational Therapy Current Condition Current Condition Evaluation Date 07/09/19 Treatment Diagnosis L4-S1 TLIF Diagnosis Onset Date 07/08/19 Post Operative Precautions Lumbar Precautions Log Roll,No Twisting,Limit Bending,Lifting Restriction of 10 lbs,Gait Belt above Incisional Area M3 OT- IP Subjective and Pain Start: 07/09/19 15:39 Freq: Status: Active Protocol: Document 07/11/19 14:03 [facility] (Rec: 07/11/19 14:20 [facility] [id number]) OT- Subjective Occupational Therapy Visit Type Type Treatment Note Visit Start Time 13:17 Visit Stop Time 13:42 Total Visit Minutes 25 Occupational Therapy Visit Comments Patient Comments Pt agreeable to get up. CHANNEL MARKETING SPECIALIST also present due to pt needing extensive assist for bed mobility needs. Patient/Caregiver Goals Pt realizes that she will need to go to skilled rehab prior to going home. OT Pain Assessment Pain When Pain Assessed During Mobility Pain Present Pain Present Pain Reported Location Bilateral Hip Intensity 7 Scale Used Numeric (1 - 10) M4 OT- IP ADL's Start: 07/09/19 15:39 Freq: Status: Active Protocol: Document 07/11/19 14:03 CCC (Rec: 07/11/19 14:20 [facility] [id number]) OT ADL-Grooming General Evaluation Grooming Ability Standby Assistance Areas Needing Assistance Retrieving/Set-up of Grooming Items,Combing/Brushing Hair, Face Washing Comments OT Grooming Comments seated in chair OT ADL-Oral Care General Eval Oral Care Ability Standby Assistance Areas of Assistance Brushing Teeth,Retrieving/Set- Up of Items Comments Oral Care Comments seated in chair OT ADL-Dressing General Eval Lower Body Dressing Ability Total Assistance Areas Needing Assistance Socks Comments OT Dressing Comments Pt too tired to participate at this time. OT ADL-Toileting Comments OT Toileting Comments Not performed OT ADL-Bathing Comments OT Bathing Comments Not performed in this session. M5 OT- IP IADL's Start: 07/09/19 15:39 Freq: Status: Active Protocol: Document 07/09/19 15:39 CGR (Rec: 07/09/19 16:02 CGR [id number]) OT-Instrumental Activities of Daily Living Deficits IADL Deficits Identified Deficits Home Safety Awareness Awareness of Need for Assistance at Home Good Awareness Ability to Problem Solve Emergency Able to Problem Solve Situations Medication Management Medication Management No Deficits Identified Money Management Money Management No Deficits Identified Meal Preparation Meal Preparation Comments Meals on wheels Coastal And Estuary Specialist Coastal And Estuary Specialist Caregiver Provides Assist Coastal And Estuary Specialist Comments Pt has a cleaning lady that comes in once a week. Driving Driving Comments Pt does not drive. M6 OT- IP Functional Cognition Start: 07/09/19 15:39 Freq: Status: Active Protocol: Document 07/11/19 14:03 [facility] (Rec: 07/11/19 14:20 [facility] [id number]) Cognitive Factors Limiting Selfcare Function Cognitive Ability Level of Alertness Alert Patient Orientation Name,Age,Birthday,Month,Date, Year,Day of Week,Place, Situation Attention Span Ability Capable of Focused Attention, Capable of Sustained Attention Ability to Follow Commands Able to Follow One Step Commands with Increased Time, Able to Follow One Step Commands with Repetition Safety Awareness Decreased Recall of Precautions Cognitive Comments Cognitive Assessment Comments Pt very groggy and needing increased time to follow directions. Continue to assess for cognitive needs. Pt needing cues for safety for hand placement needs. M7 OT- IP Mobility and Balance Start: 07/09/19 15:39 Freq: Status: Active Protocol: Document 07/11/19 14:03 [facility] (Rec: 07/11/19 14:20 [facility] [id number]) OT- Bed Mobility Assessment Rolling Type of Rolling Log Rolling,Roll to Left Level of Assistance Moderate Assistance,1 Person Assistance Supine to Sit Supine to Sit Assist Moderate Assistance,1 Person Assistance Scooting Scooting to Edge of Bed Moderate Assistance OT-Transfer Assessment Sit to and From Stand Sit to and from Stand Minimal Assistance,Moderate Assistance,2 Person Assistance Transfers Transfer Ability Moderate Assistance,2 Person Assistance Technique Transfer Destination Bed,Chair Transfer Technique Stand Step Pivot Devices Transfer Assistive Devices Gait Belt,Front Wheeled Walker Comments Mobility Comments Pt from JAKE x2 to MOD X 2 to stand with FWW and having difficulty to stand upright and tends to lean forwards. Pt needing assist for balance, and assist to help guide the FWW during transfers. OT- Gait Assessment Comments Gait Ability Comments Pt only able to tolerated walking 2 steps with MODA X 2 and recliner following. 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 Edema Edema Absent M9 OT- IP Assessment and Plan Start: 07/09/19 15:39 Freq: Status: Active Protocol: Document 07/11/19 14:03 [facility] (Rec: 07/11/19 14:20 [facility] [id number]) OT Summary Assessment and Plan Potential Rehabilitation Potential Good Analytic Complexity at Evaluation Low Summary OT Impairments Pain,Balance,Functional Mobility,Self-Feeding,Grooming ,Dressing,Toileting,Bathing, Toilet Transfers,Shower Transfers,Activity Tolerance Progress Towards Goals Slow Progress due to Pain,Slow Progress due to Activity Tolerance Assessment Summary Pt at this time requiring at times two person assist fo ADL 's and functional mobility and only able to tolerate transfers and taking 2 steps with FWW and assist x 2 persons with FWW. Pt will benefit from going to skilled rehab prior to going home as pt needing too great of care for her neighbor to assist at this time. Goals Self-Feeding Goal Independent Grooming Goal Independent Dressing Goal Independent,Coffee Supervisor,Sock Aid Toileting Goal Independent Bathing Goal Minimal Assistance,Grab Bars, Hand Held Shower Sprayer Toilet Transfer Goal Independent,ADA High Toilet Shower Transfer Goal Standby Assistance,Walk-in Shower Patient/Caregiver Education Goal Caregiver Independent Assisting Patient Days to Meet Goals 7 Frequency of Treatment Frequency Of Treatment Once a Day Treatment Plan OT Treatment Plan ADL Training,Functional Mobility,Patient/Family Education,Discharge Planning Other Treatment Recommendations and Next LB dressing training. Treatment Focus Discharge Recommendations OT Discharge Recommendations SNF Rehab Transportation Needs at Discharge Wheelchair/Cabulance
--- NOTE | 2019-07-11 14:10 | CM.DANOTE ---
DCP/continued: Reviewed chart. Spoke with orthopedic team and they report that patient will need SNF. Patient progressing slower that expected. Met with patient to discuss plan. Patient provided with Medicare contracted SNF list. First choice is [facility]. Placed call to admit at [facility] and they requested that clinical be faxed for review. Asked CABIN CLEANING SUPERVISOR/[employer] to fax. Received return phone call from [facility] indicating that they can accept patient when medically stable. Discharge is anticipated for tomorrow 07-11-19. PASRR needs to be completed prior to d/c. P: [facility] when medically stable. Mode of transport to be determined pending progress and whether or not patient can sit up in chair. TIAN Hubbard
[2019-07-11] MEDS: HYDROXYCHLOROQUINE 200 MG TABLET 400 MG PO (21:52)
[2019-07-11] MEDS: MONTELUKAST 10 MG TABLET PO (21:53)
[2019-07-11] MEDS: ASPIRIN EC 81 MG TABLET PO (21:53)
[2019-07-11] MEDS: SENNOSIDES 8.6 MG TABLET 17.2 MG PO (21:53)
[2019-07-12 00:40] VITALS: BP 101/59; PULSE 72; RESP 18; TEMP 36.3; O2SAT 95
[2019-07-12 03:25] VITALS: BP 119/69; PULSE 77; RESP 18; TEMP 36.7; O2SAT 97
[2019-07-12 08:00] VITALS: BP 129/61; PULSE 88; RESP 18; TEMP 36.7; O2SAT 95
--- NOTE | 2019-07-12 08:34 | PT.IPTN ---
Current Diagnoses Spondylolisthesis, lumbar region (07/08/19) Other spondylosis with radiculopathy, lumbosacral region (07/08/19) Spinal stenosis, lumbosacral region (07/08/19) Surgery Performed Operation Date: 07/08/19 12:15 Actual Procedures p L4-5,L5-S1 TLIF with posterior instrumentation(Not Applicable) - Tanja Page MD Physical Therapy Treatment Note M2 PT-IP Current Condition Start: 07/09/19 13:47 Freq: NEEDED Status: Active Protocol: Document 07/09/19 11:01 AB (Rec: 07/09/19 14:09 AB [id number]) Physical Therapy Current Condition Current Condition Evaluation Date 07/09/19 Treatment Diagnosis s/p L4-S1 fusion/lami; difficulty in walking Onset Date 07/08/2019 Precautions Lumbar Precautions Log Roll,No Twisting,Limit Bending,Lifting Restriction of 10 lbs,Gait Belt above Incisional Area M3 PT-IP Subjective Start: 07/09/19 13:47 Freq: NEEDED Status: Active Protocol: Document 07/12/19 08:34 CLB (Rec: 07/12/19 10:54 CLB [id number]) Subjective Physical Therapy Visit Type Type Treatment Note Visit Start Time 08:34 Visit Stop Time 08:53 Total Visit Minutes 19 Notes co-treat with OT Number of CONTROL AREA OPERATOR Visits 2 Physical Therapy Visit Comments Patient Comments Pt agreeable to transfer to BSC then to chair. Therapy Pain Assessment Pain When Pain Assessed During Mobility Pain Present Pain Present Pain Reported Location back Intensity 8 Scale Used Numeric (1 - 10) Pain Management Techniques Re-positioning,Timing of Activity with Medications M4 PT-IP Mobility and Gait Start: 07/09/19 13:47 Freq: NEEDED Status: Active Protocol: Document 07/12/19 08:34 CLB (Rec: 07/12/19 10:54 CLB [id number]) PT-Bed Mobility Assessment Rolling Type of Rolling Log Rolling,Roll to Left Level of Assist Moderate Assistance,1 Person Assistance Scooting Scooting to Edge of Bed Contact Guard Assistance PT-Transfer Assessment Sit to and From Stand Sit to and from Stand Minimal Assistance,2 Person Assistance,Use of Upper Extremities Equipment Transfer Assistive Device Gait Belt,Front Wheeled Walker Transfers Transfer Destination Chair Transfer Technique Stand Step Pivot Transfer Ability Level of Assist Minimal Assistance,1 Person Assistance,Use of Upper Extremities Comments Mobility Comments Pt requires Min A to get out of bed and was able to scoot to EOB CGA. Pt stood with Min A x2 from bed then took steps to get to BSC. Pt had BM requiring standing balance CGA and assit with pericare. Pt then ambulated ~2 ft to chair requiring assist to scoot back in chair. Left pt in chair with OT present. Informed RN pt had BM. Gait Assessment Gait Gait Assistance Required: Minimum Assistance,1 Person Assist Assistive Devices Assistive Device Gait Belt,Front Wheeled Walker Orthotic/Prosthetic Devices or Brace: No Gait Deviations General Gait Pattern Antalgic,Decreased Stride Length,Decreased Feet Clearance,Flexed Trunk Factors Limiting Gait Function Factors Limiting Gait Function Decreased Activity Tolerance, Decreased Sensation,Decreased Strength,Limited Range of Motion,Pain,Poor Balance,Poor Safety Awareness,Respiratory Distress Comments Gait Comments Pt able to walk 2 ft to chair with Min A. Stair Climbing Assessment Comments Stair Climbing Comments Not assessed. Pt unable at this time. M5 PT-IP Objective Assessments Start: 07/09/19 13:47 Freq: NEEDED Status: Active Protocol: Document 07/09/19 11:01 AB (Rec: 07/09/19 14:09 AB [id number]) Orientation Orientation/Cognition Level of Alertness Alert Orientation Name,Place,Situation Safety Awareness Decreased Safety Awareness Memory Description Short Term Impaired Gross Range of Motion Lower Extremity ROM Assessment Within Functional Limits Strength Lower Extremity Strength Assessment Bilaterally Impaired Hip 3+/5 Knee 3+/5 Sensation Assessment Sensation Gross Sensation Right LE Impaired,Left LE Impaired Light Touch Impaired Proprioception (Position) Impaired Sensation Description Numbness Muscle Tone Muscle Tone WNL No M6 PT-IP Treatment Start: 07/09/19 13:47 Freq: NEEDED Status: Active Protocol: Document 07/10/19 16:26 AW (Rec: 07/10/19 16:37 AW [id number]) Physical Therapy Treatment Education Education Provided Precautions,Safety Other Treatments Other Treatment Performed Reviewed precautions with pt able to recall all. M7 PT-IP Assessment and Plan Start: 07/09/19 13:47 Freq: NEEDED Status: Active Protocol: Document 07/12/19 08:34 CLB (Rec: 07/12/19 10:54 CLB [id number]) PT Summary Assessment and Plan Summary Impairments Pain,ROM,Strength,Balance, Coordination,Sensation,Bed Mobility,Transfers,Gait, Activity Tolerance Progress Towards Goals Slow Progress due to Pain,Slow Progress due to Activity Tolerance Assessment Summary Pt SpO2 90% throughout therapy tx. Pt improving with bed mobility, sit<>stand and transfer. Pt will require SNF rehab to improve activity tolerance and functional mobility. Goals Bed Mobility Goal Standby Assistance Transfer Goal Standby Assistance,Front Wheeled Walker Gait Goal Standby Assistance,Front Wheel Walker Gait Distance 100 Other Goals up/down 3 steps SPC/PAINT ROLLER COVER MACHINE SETTER min A Days to Meet Goals 5 Frequency of Treatment Frequency Of Treatment Twice a Day Treatment Plan Physical Therapy Treatment Plan Bed Mobility Training,Transfer Training,Gait Training, Therapeutic Exercise,Balance Retraining,Post Op Education, Discharge Planning,Hot or Cold Pack,Neuromuscular Re-ed, Coordination Retraining,Manual Therapy Recommendations To Nursing Amount of Assist Needed 1 Person Assist Discharge Recommendations PT Discharge Recommendations SNF Rehab Transportation Needs at Discharge Wheelchair/Cabulance
--- NOTE | 2019-07-12 08:35 | OT.IP.TRT ---
Current Diagnoses Spondylolisthesis, lumbar region (07/08/19) Other spondylosis with radiculopathy, lumbosacral region (07/08/19) Spinal stenosis, lumbosacral region (07/08/19) Surgery Performed Operation Date: 07/08/19 12:15 Actual Procedures p L4-5,L5-S1 TLIF with posterior instrumentation(Not Applicable) - Tanja Page MD Occupational Therapy Treatment Note M2 OT-IP Current Condition Start: 07/09/19 15:39 Freq: Status: Active Protocol: Document 07/09/19 15:39 [facility] (Rec: 07/09/19 16:02 [facility]GR [id number]) Occupational Therapy Current Condition Current Condition Evaluation Date 07/09/19 Treatment Diagnosis L4-S1 TLIF Diagnosis Onset Date 07/08/19 Post Operative Precautions Lumbar Precautions Log Roll,No Twisting,Limit Bending,Lifting Restriction of 10 lbs,Gait Belt above Incisional Area M3 OT- IP Subjective and Pain Start: 07/09/19 15:39 Freq: Status: Active Protocol: Document 07/12/19 11:07 [facility] (Rec: 07/12/19 11:15 [facility] [id number]) OT- Subjective Occupational Therapy Visit Type Type Treatment Note Visit Start Time 08:35 Visit Stop Time 09:01 Total Visit Minutes 26 Occupational Therapy Visit Comments Patient Comments Pt agreeable to get up and use the BSC. Patient/Caregiver Goals To go to skilled rehab and go home afterwards. OT Pain Assessment Pain When Pain Assessed During Mobility Pain Present Pain Present Pain Reported Location back Intensity 8 Scale Used Numeric (1 - 10) M4 OT- IP ADL's Start: 07/09/19 15:39 Freq: Status: Active Protocol: Document 07/12/19 11:07 [facility] (Rec: 07/12/19 11:15 [facility] [id number]) OT ADL-Grooming General Evaluation Grooming Ability Standby Assistance Areas Needing Assistance Retrieving/Set-up of Grooming Items,Combing/Brushing Hair, Face Washing Comments OT Grooming Comments seated in chair OT ADL-Oral Care General Eval Oral Care Ability Standby Assistance Areas of Assistance Brushing Teeth,Retrieving/Set- Up of Items Comments Oral Care Comments seated in chair OT ADL-Toileting General Evaluation Toileting Ability Maximum Assistance Areas Needing Assistance Manage Clothing,Perform Perineal Hygiene Comments OT Toileting Comments JAKE x2 to stand from BSC to FWW and then one person to stand with pt JAKE while another assisting with pericare needs. M5 OT- IP IADL's Start: 07/09/19 15:39 Freq: Status: Active Protocol: Document 07/09/19 15:39 [facility] (Rec: 07/09/19 16:02 [facility] [id number]) OT-Instrumental Activities of Daily Living Deficits IADL Deficits Identified Deficits Home Safety Awareness Awareness of Need for Assistance at Home Good Awareness Ability to Problem Solve Emergency Able to Problem Solve Situations Medication Management Medication Management No Deficits Identified Money Management Money Management No Deficits Identified Meal Preparation Meal Preparation Comments Meals on wheels Underwriter Solicitation Director Underwriter Solicitation Director Caregiver Provides Assist Underwriter Solicitation Director Comments Pt has a cleaning lady that comes in once a week. Driving Driving Comments Pt does not drive. M6 OT- IP Functional Cognition Start: 07/09/19 15:39 Freq: Status: Active Protocol: Document 07/12/19 11:07 [facility] (Rec: 07/12/19 11:15 [facility] [id number]) Cognitive Factors Limiting Selfcare Function Cognitive Ability Level of Alertness Alert Patient Orientation Name,Age,Birthday,Month,Date, Year,Day of Week,Place, Situation Attention Span Ability Capable of Focused Attention, Capable of Sustained Attention Ability to Follow Commands Able to Follow One Step Commands with Increased Time, Able to Follow One Step Commands with Repetition Memory Description No Deficits Noted Cognitive Comments Cognitive Assessment Comments Pt doing better today and not groggy and able to follow directions for toileting and functional mobility needs with good safety. M7 OT- IP Mobility and Balance Start: 07/09/19 15:39 Freq: Status: Active Protocol: Document 07/12/19 11:07 [facility] (Rec: 07/12/19 11:15 [facility] [id number]) OT- Bed Mobility Assessment Rolling Type of Rolling Log Rolling,Roll to Left Supine to Sit Supine to Sit Assist Moderate Assistance,1 Person Assistance Scooting Scooting to Edge of Bed Contact Guard Assistance,1 Person Assistance OT-Transfer Assessment Sit to and From Stand Sit to and from Stand Minimal Assistance,2 Person Assistance Transfers Transfer Ability Minimal Assistance,1 Person Assistance Technique Transfer Destination Bed,Bedside Commode,Chair Devices Transfer Assistive Devices Gait Belt,Front Wheeled Walker Comments Mobility Comments Pt improved and now just JAKE x2 to stand with FWW and able to guide the FWW today and just needing one person to assist with the transfer. 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 Edema Edema Absent M9 OT- IP Assessment and Plan Start: 07/09/19 15:39 Freq: Status: Active Protocol: Document 07/12/19 11:07 [facility] (Rec: 07/12/19 11:15 [facility] [id number]) OT Summary Assessment and Plan Potential Rehabilitation Potential Good Analytic Complexity at Evaluation Low Summary OT Impairments Pain,Balance,Functional Mobility,Self-Feeding,Grooming ,Dressing,Toileting,Bathing, Toilet Transfers,Shower Transfers,Activity Tolerance Progress Towards Goals Progressing Toward Goals Assessment Summary Pt able to tolerate BSC transfer and then transfer to the recliner. Pt moving better today and looking to go to skilled rehab today. Discharge Recommendations OT Discharge Recommendations SNF Rehab Transportation Needs at Discharge Wheelchair/Cabulance
[2019-07-12] MEDS: INSULIN GLARGINE 100 UNIT/ML 3ML PEN 15 UNIT SUBCUT (09:00)
[2019-07-12] MEDS: POTASSIUM CHLORIDE 20 MEQ TAB PO (09:06)
[2019-07-12] MEDS: DOCUSATE 100 MG CAPSULE PO (09:07)
[2019-07-12] MEDS: MORPHINE IR 15 MG TABLET PO (09:07)
[2019-07-12] MEDS: ACETAMINOPHEN 325 MG TABLET 650 MG PO (09:07)
[2019-07-12] MEDS: ASPIRIN EC 81 MG TABLET PO (09:07)
[2019-07-12] MEDS: PANTOPRAZOLE 40 MG TABLET PO (09:08)
[2019-07-12] MEDS: ROSUVASTATIN 10 MG TABLET PO (09:08)
[2019-07-12] MEDS: LOSARTAN 50 MG TABLET PO (09:08)
[2019-07-12] MEDS: LORATADINE 10 MG TABLET PO (09:08)
[2019-07-12] MEDS: FOLIC ACID 1 MG TABLET PO (09:08)
[2019-07-12] MEDS: FUROSEMIDE 20 MG TABLET PO (09:08)
[2019-07-12] MEDS: GABAPENTIN 300 MG CAPSULE 600 MG PO ×2 (09:08→13:51)
[2019-07-12] MEDS: METOCLOPRAMIDE HCL 10 MG TABLET PO ×2 (09:08→13:51)
[2019-07-12] MEDS: NITROFURANTOIN ER 100 MG CAPSULE PO (09:12)
[2019-07-12] MEDS: predniSONE 5 MG TABLET PO (09:12)
[2019-07-12] MEDS: MYCOPHENOLATE MOFETIL 500 MG TABLET 1000 MG PO (09:12)
[2019-07-12] MEDS: SODIUM CHLORIDE 0.9% FLUSH 10 ML IV (09:13)
[2019-07-12] MEDS: ACYCLOVIR 400 MG TABLET PO (09:15)
[2019-07-12 09:34] VITALS: PULSE 91; RESP 18; O2SAT 93
[2019-07-12 09:37] VITALS: O2SAT 90; O2SAT 93
--- NOTE | 2019-07-12 10:13 | CM.DPNOTE ---
Addendum entered by Gogo Rose R.N. 07/12/19 15:30: LISA/Rn faxed [facility] D/C order, Patient summary and PASRR to review. Nenita at [facility] called back and set up sampler pickup for patient at 2:30pm. Lisa/Rn updated Patients RN and [employer] SALES REPRESENTATIVE about D/c plan. PASRR copy placed with [employer] to Scan into patients record and original was placed into D/C packet to go with patient to [facility]. Nenita notified patient was on Oxygen and would need to be transported with it. Gogo Rose RN Original Note: DCP continued: EMR Reviewed: During AM rounds it was discussed that patient will most likely be D/C today. No D/C order in place at this time. LISA/RN spoke with Nenita at [facility] and she stated they can accept patient today for D/C they need prior to transport being set up. PASRR, D/C order and D/C summary as well as list of patients vitals to show patient does not have COVID 19 virus at this time. LISA/RN spoke to marketing database analyst Steve- let him know we are in need of D/C orders from Ortho. He stated he will call down to them and get that started ROSA. LISA/Rn will faxe information to [facility] once it is available. Gogo Rose RN
[2019-07-12 11:37] VITALS: BP 118/64; PULSE 82; RESP 18; TEMP 36.1; O2SAT 92
[2019-07-12] MEDS: INSULIN ASPART 100 UNIT/ML INSULN PEN SUBCUT (11:58)
--- NOTE | 2019-07-12 12:26 | PC.NURSE ---
Day shift: [facility] at this [facility]. [id number]
--- NOTE | 2019-07-12 14:34 | PC.NURSE ---
Day shift: Pt moving better today. Remains weak and slow moving but well improved from yesterday. Pt taken to [facility] by SNF drjoaquim in WC van. Manager Infrastructure has SNF paperwork. Pt has all personal belongings. scrips are in SNF packet.
--- NOTE | 2019-08-17 13:08 | PM.DS.1 ---
History of Present Illness History of Present Illness Chief complaint: [id number] Narrative: Ms. Small is a 69 yo F who was admitted after having L4-S1 TLIF with Dr. Page on 07/08/2019. Patient was admitted for pain control, physical therapy/mobility training and neurovascular monitoring. Discharge Providers Provider Date of admission: 07/08/19 10:34 Discharge Date: 07/12/19 Primary care physician: Zeke Valente MD Consults: 06/28/19 08:35 Consult to Anesthesiology Routine Comment: Consulting Provider: Anesthesiologist Reason for consultation: PAC courtesy re: Comorbidities 07/08/19 17:25 Consult to Occupational Therapy Evaluate & Treat Comment: Physician Instructions: Evaluate and treat Consult to Physical Therapy Evaluate & Treat Comment: Physician Instructions: Evaluate and Treat Discharge provider: Tanja Page MD Exam Vital Signs (past 8 hours): Oxygen Delivery Method Room Air Oxygen Flow Rate 1 Objective Labs Result Diagrams: 07/09/19 05:50 Discharge Plan Discharge Plan Patient Disposition: SNF Transfer to: [facility] Discharge orders & Medications Prescriptions: New acetaminophen 325 mg Tablet 650 mg PO Q6HR PRN (Reason: Pain, Mild (1-3)) Qty: 40 RF: 0 aspirin 81 mg Tablet,Delayed Release (Dr/Ec) 81 mg PO BID Qty: 40 RF: 0 docusate sodium [DOK] 100 mg Capsule 100 mg PO BID Qty: 40 RF: 0 morphine 15 mg Tablet 15 mg PO Q6HR PRN (Reason: Pain, Severe (7-10)) Qty: 40 RF: 0 hydroxyzine pamoate 25 mg Capsule 25 mg PO Q4HR PRN (Reason: Nausea And Vomiting) Qty: 40 RF: 0 Continued losartan 50 mg Tablet 50 mg PO DAILY RF: 0 prednisone 5 mg Tablet 5 mg PO DAILY RF: 0 acyclovir 400 mg Tablet 400 mg PO BID RF: 0 acetaminophen [Tylenol Arthritis Pain] 650 mg Tablet Extended Release 650 mg PO SEEINSTR RF: 0 mycophenolate mofetil [CellCept] 500 mg Tablet 1,000 mg PO BID RF: 0 pantoprazole 40 mg Tablet,Delayed Release (Dr/Ec) 40 mg PO DAILY RF: 0 gabapentin 300 mg Capsule 600 mg PO TID RF: 0 folic acid 1 mg Tablet 1 mg PO DAILY RF: 0 montelukast 10 mg Tablet 10 mg PO BEDTIME RF: 0 furosemide 20 mg Tablet 20 mg PO DAILY RF: 0 hydroxychloroquine 200 mg Tablet 400 mg PO BEDTIME RF: 0 albuterol sulfate 90 mcg/actuation Hfa Aerosol Inhaler 2 puff INHALATION Q4-6H PRN (Reason: Shortness Of Breath) RF: 0 loratadine 10 mg Tablet 10 mg PO DAILY RF: 0 metoclopramide HCl 10 mg Tablet 10 mg PO TID RF: 0 insulin aspart U-100 [Novolog Flexpen U-100 Insulin] 100 unit/mL (3 mL) Insulin Pen 5 - 10 unit SUBCUT QACDINNER MDD Sliding scale RF: 0 rosuvastatin [Crestor] 10 mg Tablet 10 mg PO DAILY RF: 0 Advair HFA 230-21 mcg/actuation Hfa Aerosol Inhaler 2 puff INHALATION BID RF: 0 Basaglar KwikPen U-100 Insulin 100 unit/mL (3 mL) Insulin Pen 15 unit SUBCUT QAM RF: 0 potassium chloride 20 mEq Tablet Extended Release 20 meq PO DAILY RF: 0 nitrofurantoin macrocrystal 100 mg Capsule 100 mg PO BID RF: 0 Follow up/Referrals: Zeke Valente MD [Primary Care Provider] - Tanja Page MD [Physician] - Discharge Health Status Precautions: [place] Diet/Activity/Treatments Diet: Diet as Tolerated Liquid consistency: Normal/Thin Food texture: Regular Activity: No bending, lifting, twisting. Cold/Heat Therapy: Ice as needed. Skin/Wound/Dressing Care Report to your healthcare provider any signs of infection, such as:: chills, fever, night sweats, unusual drainage and unusual redness Special Rehabilitation Services Reason for rehabilitation: Post-operative therapy Rehab type: Physical therapy and Occupational therapy Visit Report/Discharge Packet Instructions: DI for Prescription Opioid Use, DI for Transforaminal Lumbar Interbody Fusion Discharge Data Primary Care Provider: Zeke Valente Discharges patient from system. Discharge Date/Time: 07/12/19 14:36
== END 2019-07-12 14:36 | DRG 454 ==
PROVIDERS: Admitting Provider Orthopaedic Surgery Orthopaedic Surgery of the Spine; PCP Family Medicine; Referring Provider Orthopaedic Surgery Orthopaedic Surgery of the Spine; Visit Provider Orthopaedic Surgery Orthopaedic Surgery of the Spine
PROC: 0SG00AJ Fusion of Lumbar Vertebral Joint with Interbody Fusion Device, Posterior Approach, Anterior Column, Open Approach (ICD-10-PCS; principal; 2019-07-08 12:15)
DX: M48.061 Spinal stenosis, lumbar region without neurogenic claudication (principal); M33.90 Dermatopolymyositis, unspecified, organ involvement unspecified; M43.16 Spondylolisthesis, lumbar region; G47.30 Sleep apnea, unspecified; E11.42 Type 2 diabetes mellitus with diabetic polyneuropathy; I10 Essential (primary) hypertension; E78.5 Hyperlipidemia, unspecified; K21.9 Gastro-esophageal reflux disease without esophagitis; J45.909 Unspecified asthma, uncomplicated; E66.9 Obesity, unspecified; M48.07 Spinal stenosis, lumbosacral region; M43.17 Spondylolisthesis, lumbosacral region; G89.18 Other acute postprocedural pain; Z79.4 Long term (current) use of insulin; Z68.35 Body mass index [BMI] 35.0-35.9, adult
CPT/HCPCS: 36415; 72100; 76000; 82962; 85014; 85018; 94760; 97116; 97162; 97165; 97530; 97535; C1776; C9290; J0330; J1100; J2405; J2704; J3010

== ENCOUNTER → 2019-09-21 14:04 | Outpatient (CLI) | payer MEDICARE, BC, SELFPAY ==
[2019-07-08 17:54] VITALS: BMI 34.9
== END ==
PROVIDERS: PCP Family Medicine; Referring Provider Internal Medicine; Visit Provider Internal Medicine
DX: J18.9 Pneumonia, unspecified organism (principal)
CPT/HCPCS: 87070; 87205

== ENCOUNTER → 2019-09-28 14:34 | Outpatient (CLI) | payer MEDICARE, BC, SELFPAY ==
[2019-07-08 17:54] VITALS: BMI 34.9
--- NOTE | 2019-09-28 | DI.CT.S_ITS ---
PROCEDURE: CT CHEST HIGH RESOLUTION INDICATIONS: Pneumonia, unspecified organism TECHNIQUE: Noncontrast 1.0 and 5.0 mm thick contiguous axial sections from the pulmonary apex to the posterior costophrenic angles, with 7 mm thick coronal and sagittal MIP reformats. 1 mm thick dynamic expiratory images acquired through the upper, mid, and lower lungs. 1.0 mm thick axial sections acquired from the didi to the posterior costophrenic angles in the prone end-inspiration position. For radiation dose reduction, the following was used: automated exposure control, adjustment of mA and/or kV according to patient size. COMPARISON: [facility], CT, CT CHEST WO CON, 05/28/2018, 12:29. [facility], CT, CT CHEST WO CON, 01/28/2019, 14:44. [facility], CT, CT CHEST HIGH RESOLUTION, 04/12/2018, 13:31. FINDINGS: Image quality: Excellent. Lungs: There is interval resolution of an irregular nodule in the posterior right lung lower lobe seen on the prior CT. Small bibasilar groundglass nodules on the order of 1-2 mm with a centrilobular distribution are redemonstrated and are compatible sequelae of an infectious or inflammatory process. There is bilateral bronchiectasis with a basilar predominance with areas of mild mucous plugging as well as mild bronchial wall thickening. Findings are consistent with sequelae of a chronic atypical infection. Linear areas of mild septal thickening and groundglass opacity with a bronchovascular distribution are redemonstrated suggestive of scarring. Subpleural reticulation is not a dominant finding. No honeycombing. Dynamic images demonstrate no evidence of air trapping. Pleura: No pleural effusions or pneumothorax. Mediastinum: Heart size is normal. No pericardial effusion. There is coronary arterial vascular calcification. Thoracic aorta and central pulmonary arteries are normal in size. No mediastinal or hilar lymphadenopathy by size criteria. Esophagus is normal in caliber. There is a small hiatal hernia. Bones and chest wall: No suspicious bony lesions. No vertebral body compression fractures. Abdomen: Visualized upper abdomen demonstrates surgical absence of the gallbladder. IMPRESSION: 1. Bilateral mild bronchiectasis with a bibasilar predominance associated with scattered foci of mucus plugging and mild bronchial wall thickening redemonstrated. In addition, small central other groundglass nodular opacities in the lung bases are redemonstrated. The constellation of findings are compatible with sequelae of a chronic atypical infection. 2. Linear areas of perihilar groundglass opacity along the bronchovascular structures redemonstrated likely representing scarring. 3. No honeycombing. Subpleural reticular opacities are not a predominant feature. Dictated by: Marino Levine M.D. on 09/29/2019 at 9:32 Approved by: Marino Levine M.D. on 09/29/2019 at 10:26
== END ==
PROVIDERS: PCP Family Medicine; Referring Provider Internal Medicine; Visit Provider Internal Medicine
DX: J18.9 Pneumonia, unspecified organism (principal); J47.9 Bronchiectasis, uncomplicated; K44.9 Diaphragmatic hernia without obstruction or gangrene; Z90.49 Acquired absence of other specified parts of digestive tract
CPT/HCPCS: 71250

== ENCOUNTER → 2019-10-05 12:54 | Outpatient (CLI) | payer MEDICARE, BC, SELFPAY ==
[2019-07-08 17:54] VITALS: BMI 34.9
== END ==
PROVIDERS: PCP Family Medicine; Referring Provider Internal Medicine; Visit Provider Internal Medicine
DX: J18.9 Pneumonia, unspecified organism (principal); D89.0 Polyclonal hypergammaglobulinemia
CPT/HCPCS: 87102; 87116; 87206

== ENCOUNTER → 2020-05-09 12:01 | Outpatient (CLI) | payer MEDICARE, BC, SELFPAY ==
[2019-07-08 17:54] VITALS: BMI 34.9
--- NOTE | 2020-05-09 12:16 | DI.CT.S_ITS ---
PROCEDURE: CT CHEST WO CON INDICATIONS: Pulmonary nodule TECHNIQUE: Noncontrast 5 mm thick sections acquired from the pulmonary apices to the posterior costophrenic angles. 1 mm lung window, 5 mm thick coronal and sagittal and 7 mm axial MIP reformats were then acquired. For radiation dose reduction, the following was used: automated exposure control, adjustment of mA and/or kV according to patient size. COMPARISON: [facility], CT, CT CHEST WO CON, 01/28/2019, 14:44. [facility], CT, CT CHEST WO CON, 05/28/2018, 12:29. [facility], CT, CT CHEST HIGH RESOLUTION, 09/28/2019, 15:58. FINDINGS: Image quality: Excellent. Lungs and pleura: No acute air space opacities. The mildly spiculated appearance of a focal radiodensity at the right lung base in the deep costophrenic sulcus has resolved. Focal lung scarring more medially remains, however. This is currently best seen on series 3, image 34, with the prior nodule of concern seen on prior CT scanning in that same area 01/28/19. No new pulmonary nodule has developed. Chronic bronchitis and focal bronchiectasis is seen at the left lung base, and no pulmonary mass is found in that area. No pleural effusions or pneumothorax. Central and peripheral airways are patent and normal in caliber. Mediastinum: Heart size is normal. No pericardial effusion. No mediastinal adenopathy by size criteria. Thoracic aorta and central pulmonary arteries are normal in size. Esophagus is normal in caliber. No hiatal hernia. Bones and chest wall: No suspicious bony lesions. No vertebral body compression fractures. No axillary or supraclavicular adenopathy by size criteria. Thyroid gland is not well seen by this noncontrast study. Abdomen: Visualized upper abdominal solid organs and bowel loops appear normal in the absence of contrast. IMPRESSION: Resolution of a focal mildly spiculated 1.1 cm nodule within the right posterior deep costophrenic sulcus. Stable appearance of focal lung scarring slightly more medially in that same region. Stable chronic bronchitis with focal bronchiectasis again noted at the left lung base. No new abnormality is seen that would suggest presence of pneumonia or neoplasm. Dictated by: Alfred Davies M.D. on 05/09/2020 at 15:00 Approved by: Alfred Davies M.D. on 05/09/2020 at 15:03
== END ==
PROVIDERS: PCP Family Medicine; Referring Provider Family Medicine; Visit Provider Family Medicine
DX: R91.1 Solitary pulmonary nodule (principal); R91.8 Other nonspecific abnormal finding of lung field
CPT/HCPCS: 71250; Q9967

== ENCOUNTER → 2020-05-19 16:38 | Outpatient (CLI) | payer MEDICARE, BC, SELFPAY ==
[2019-07-08 17:54] VITALS: BMI 34.9
== END ==
PROVIDERS: PCP Family Medicine; Referring Provider Internal Medicine; Visit Provider Internal Medicine
DX: R05 Cough (principal); J30.9 Allergic rhinitis, unspecified; J47.9 Bronchiectasis, uncomplicated
CPT/HCPCS: 87070; 87205

== ENCOUNTER → 2020-05-23 11:18 | Outpatient (CLI) | payer MEDICARE, BC, SELFPAY ==
[2019-07-08 17:54] VITALS: BMI 34.9
== END ==
PROVIDERS: PCP Family Medicine; Referring Provider Family Medicine; Visit Provider Internal Medicine
DX: R05 Cough (principal); J30.9 Allergic rhinitis, unspecified; J47.9 Bronchiectasis, uncomplicated
CPT/HCPCS: 87101

== ENCOUNTER → 2020-06-13 11:20 | Outpatient (CLI) | payer MEDICARE, BC, SELFPAY ==
[2019-07-08 17:54] VITALS: BMI 34.9
--- NOTE | 2020-06-13 11:24 | DI.CT.S_ITS ---
PROCEDURE: CT SINUS SCREEN WO CON INDICATIONS: Cough TECHNIQUE: Noncontrast 3.0 mm axial images acquired from the frontal sinuses to the mid-sella, with coronal and sagittal reformats. For radiation dose reduction, the following was used: automated exposure control, adjustment of mA and/or kV according to patient size. COMPARISON: None. FINDINGS: Postsurgical changes of bilateral maxillary medial antrostomies and medial uncinectomies. There is also been finish straighten/resection of several adjacent ethmoid air cells, more extensively on the right. There is mucosal thickening in the bilateral maxillary sinuses measuring up to 1 centimeter on the right and 1.1 centimeters on the left. This narrows the maxillary sinus outflow tracts. There is no fluid level in the maxillary sinuses although there is some aerated secretions on the left. Mucosal thickening producing varying degrees of opacification in the residual ethmoid air cells, right greater than left. There is obstruction of the left frontoethmoid recess by mucosal thickening. Frontal sinuses are otherwise clear. There is bony thickening and sclerosis of the frontal and maxillary sinuses suggesting chronic/recurrent sinusitis. Mild right sphenoid sinus mucosal thickening with obstruction of the right sphenoid ethmoid recess. The left sphenoid ethmoid recess is patent and and may have been widened surgically versus congenitally large diameter. Slight asymmetric elevation of the right fovea ethmoidalis by approximately 2 millimeters. Cribriform plates and lateral lamellae are intact. Midline nasal septum. IMPRESSION: Postsurgical changes of bilateral maxillary sinus medial antrostomies and uncinectomies. Chronic appearing residual pansinusitis. Dictated by: Vadim Yeboah M.D. on 06/13/2020 at 12:15 Approved by: Vadim Yeboah M.D. on 06/13/2020 at 12:21
--- NOTE | 2020-06-13 11:24 | DI.RAD.S_ITS ---
PROCEDURE: FL BARIUM SWALLOW W SPEECH INDICATIONS: Cough COMPARISON: None. TECHNIQUE: Examination was conducted in conjunction with speech pathology per standard protocol. In the lateral projection, filming was performed of the patient swallowing. AP projection filming may also be performed with patient swallowing. COMPARISON: FINDINGS: Function: The oral preparatory phase appears normal, with proper containment. The subsequent oral propulsive phase, pharyngeal phase, and esophageal phase of swallowing also appear normal with all proffered substances. Flash laryngotracheal penetration noted with thin liquids. No laryngotracheal aspiration. No pathologic vallecular pooling. Morphology: No cricopharyngeal bar is identified. No cervical esophageal webs. No Zenker's diverticulum. No strictures. IMPRESSION: 1. Flash laryngotracheal penetration. 2. Otherwise, normal examination. Dictated by: Hiral Mercado MD, PhD on 06/13/2020 at 11:55 Approved by: Hiral Mercado MD, PhD on 06/13/2020 at 11:57
--- NOTE | 2020-06-13 18:00 | ST.SWALLOW ---
Visit Care Team Role Provider Type Rufina Stockton DO Primary Care Provider Non-Staff Specialty: Family Practice Address: [address] [place] [address] [address], [place], [address] Email: Jose Martin Baptiste MD Attending Provider Physician Referring Provider Specialty: Ear, Nose, Throat Address: [address] [place] [address], [id number] Email: [email or web address] Modified Barium Swallow Study [employer] Modified Barium Swallow Study Start: 06/13/20 16:23 Freq: Status: Active Protocol: Document 06/13/20 16:46 LL (Rec: 06/13/20 17:41 LL [id number]) Modified Barium Swallow Study Total Time Visit Start Time 11:30 Visit Stop Time 12:05 Total Visit Minutes 35 Referral Referring Physician Jose Martin Baptiste MD Reason for Referral Cough, chronic pansinusitis, and bronchiectasis without complication Setting Setting Outpatient Care Patient Information Identification Type Name,Date of ,ID Card Patient History Dorene Small is a 70- year-old female who was seen for an outpatient Modified Barium Swallow Study (MBSS) per Dr. Jose Martin Baptiste? order due to cough, chronic pansinusitis, and bronchiectasis without complication. Per chart review , patient with PMHx including but not limited to asthma, chronic cough, CKD stage III, [place]?s disease, GERD, hiatal hernia with repair surgery (02/2020 per patient report), HLD, HTN, interstitial lung disease, diabetes, bronchitis, and pneumonia. 05/09/[address] revealed ? No acute air space opacities. The mildly spiculated appearance of a focal radiodensity at the right lung base in the deep costophrenic sulcus has resolved. Focal lung scarring more medially remains, however. This is currently best seen on series 3, image 34, with the prior nodule of concern seen on prior CT scanning in that same area 01/28/19. No new pulmonary nodule has developed . Chronic bronchitis and focal bronchiectasis is seen at the left lung base, and no pulmonary mass is found in that area. No pleural effusions or pneumothorax. Central and peripheral airways are patent and normal in caliber. ? 06/13/[address] revealed ?postsurgical changes of bilateral maxillary sinus medial antrostomies and uncinectomies , and chronic appearing residual pansinusitis.? Patient reported increased vocal hoarseness over last 6 months. Patient reported that she recently received an endoscopy with ENT and stated that her vocal cords were ?red ?, indicating inflammation / edema. Patient reported that she had hiatal hernia repair surgery in 02/2020 and has noticed an increase of coughing with oral intake and expectoration of food. Patient reported difficulty swallowing hard-textured foods such as raw onion and lettuce , and large pills as well. Subjective Observations Patient arrived on time, unaccompanied for today's study. Patient alert, oriented x 4, and denied any pain / discomfort throughout study. Patient Positioning Position View Lat-A/P Imaging Lateral View Textures Administered Trials Presented Thin Liquid via Cup,Thin Liquid via Straw,[place] Liquid via Cup,Honey Liquid via Spoon,Pudding Thick Liquid via Spoon,Dysphagia Mechanical Textures,Regular Textures Oral Phase Source: MBSIMP (TM) (C) Bolus Specific Scoring Grid Lip Closure WFL Tongue Control During Bolus Hold WFL Bolus Prep/Mastication WFL Bolus Transport/Lingual Motion WFL A/P Lingual Propulsion Delay No Oral Residue Minimal Impairment Residue Clearing WFL Nasal Regurgitation No Additional Oral Phase Observations Adequate oral acceptance, labial closure, bolus preparation, mastication ( solid consistencies), and AP lingual propulsion transfer visualized with all consistencies. [employer] observed several instances where patient performed two swallows to clear bolus (e.g., multiple swallows with one bolus) primarily with thin liquids. Minimal oral residue visualized with thicker barium consistencies which patient independently cleared with 1-2 dry swallows. Pharyngeal Phase Source: MBSIMP (TM) (C) Bolus Specific Scoring Grid Soft Palate Elevation WFL Tongue Base Strength/Range of Motion WFL Residue Along the Tongue Base Yes: minimal with thin liquids , mild with thicker consistencies Clearance of Residue Along Tongue Base WFL Laryngeal Elevation WFL Anterior Hyoid Movement WFL Epiglottic Range of Motion WFL Vallecular Residue Yes: minimal with thin and nectar thick liquids Clearance of Vallecular Residue WFL Laryngeal Vestibular Closure WFL Pharyngeal Stripping Wave WFL Pharyngeal Contraction WFL Clearance of Posterior Pharyngeal Wall WFL Residue Upper Esophageal Sphincter Opening WFL Clearance of Residue in the Pyriform WFL Sinuses Esophageal Clearance Upright Position WFL Pharyngoesophageal Backflow Observed Yes: minimal-mild Additional Pharyngeal Phase Observations Pharyngeal trigger occurred at the level of the valleculae with pooling to the pyriforms across all trials of thin liquid. Pharyngeal trigger occurred at the level of the valleculae with thicker consistencies. Minimal vallecular residue visualized with thin liquid and nectar thick liquid trials. Thin liquid via straw resulted in flash penetration above the level of the vocal folds with full clearance out of airway ( e.g., 1:34 seconds on MBSS). No aspiration or penetration without clearance visualized across all consistencies. Pharyngoesophageal backflow observed intermittently throughout study. CP bar visualized between C4-C5. A/P View Textures Administered Trials Presented Thin Liquid via Cup,Barium Tablet A/P View Observations Esophageal Function Slowed Clearing Additional Observations Please see radiologist's report for detailed information. Patient required an additional sip of thin water to clear barium tablet into stomach. Clinical Impressions Dysphagia Type Functional oropharyngeal swallow (WFL) Findings The patient currently presents with a functional oropharyngeal swallow (WFL). However, the patient is a mild aspiration risk due to preexisting health / medical conditions (e.g., including but not limited to asthma, cough, GERD, pansinusitis, bronchiectasis, hoarse voice - inflammed vocal folds) negatively impacting coordination of respiration and swallowing, airway protection, and esophageal function. Risk mitigated given adherence to diet recommendations and PO precautions. Rehabilitation Potential Good Patient Appropriate for Therapy No Recommendations Diet Liquids Order Thin Diet Order Regular Medication Recommendation As Tolerated,One at a Time Additional Dietary Needs Single Sips,Controlled Sips,No Straws Aspiration Precautions Recommended Precautions Upright at 90 Degrees,Small Bites/Sips,Liquids from Cup Additional Precautions Avoid straws due to flash penetration visualized with thin liquids Treatment Plan Recommended Referrals Primary Care Physician,GI Consult Additional Recommended Referrals ENT, GI, and PCP follow up to guide plan of care (POC) Compensatory Strategies Recommendations Sitting Upright (90 deg),No Straw,Small Bites and Sips Additional Compensatory Strategies Slow intake rate, remain Recommended seated upright at least 30 minutes after meals Additional Recommendations/Comments [employer] reviewed MBSS results, diet recommendations, PO precautions, and recommended referrals with patient after swallow study to ensure adequate understanding and carryover of information / recommendations. [employer] provided patient with written handout listing diet recommendations and PO precautions as well. [employer] also provided patient with vocal hygiene strategy silent cough to reduce hard vocal fold adduction and vocal fold inflammation to improve vocal quality. [employer] recommended outpatient voice therapy if hoarseness persists or worsens . Patient verbalized understanding and agreement with recommendations.
== END ==
PROVIDERS: PCP Family Medicine; Referring Provider Otolaryngology; Visit Provider Otolaryngology
DX: J32.4 Chronic pansinusitis (principal); R05 Cough
CPT/HCPCS: 70486; 74230; 92526; 92611

== ENCOUNTER → 2020-07-01 12:07 | Outpatient (ROUT) | payer MEDICARE, BC, SELFPAY ==
[2019-07-08 17:54] VITALS: BMI 34.9
== END ==
PROVIDERS: PCP Family Medicine; Visit Provider Internal Medicine
DX: R05 Cough (principal); J30.9 Allergic rhinitis, unspecified; J47.9 Bronchiectasis, uncomplicated
CPT/HCPCS: 87015; 87116; 87206

== ENCOUNTER 2020-10-21 10:52 | Emergency (ER) | payer MEDICARE, BC, SELFPAY ==
[2019-07-08 17:54] VITALS: BMI 34.9
[2020-10-21 11:35] VITALS: BP 231/107; PULSE 80; RESP 16; TEMP 36.8; O2SAT 92; BMI 35.2
--- NOTE | 2020-10-21 11:50 | DI.RAD.S_ITS ---
PROCEDURE: XR HIP W PEL IF DONE BOUCHRA MIN 4V INDICATIONS: fall/hip pain TECHNIQUE: AP pelvis with lateral view(s) of the bilateral hip(s). COMPARISON: [facility], , HIPBILAT 3TO4V W PEL IF PERFD, 06/04/2016, 14:59. FINDINGS: Bones: Mild bilateral hip degenerative change. No fractures or dislocations. Pelvic ring appears intact. No suspicious bony lesions. Soft tissues: The visualized bowel gas pattern is normal. No suspicious soft tissue calcifications. Calcified uterine fibroid. Extensive vascular calcifications. IMPRESSION: Mild bilateral hip degenerative change, peripheral vascular disease. No evidence acute bony abnormality of the pelvis and bilateral hips. If clinical suspicion and/or symptoms persist, further assessment with repeat plain films, or advanced imaging (e.g., CT, MRI, or bone scan) may be helpful for further assessment. Dictated by: Timmy Newman M.D. on 10/21/2020 at 11:41 Approved by: Timmy Newman M.D. on 10/21/2020 at 11:42
--- NOTE | 2020-10-21 11:51 | DI.RAD.S_ITS ---
PROCEDURE: XR LUMBAR SPINE 2-3V INDICATIONS: fall/back pain TECHNIQUE: 3 views of the lumbar spine were acquired. COMPARISON: [facility] [place], CR, XR LUMBAR SPINE 2 OR 3 VIEWS, 03/08/2020, 11:15. [facility], CR, XR LUMBAR SPINE 2-3V, 07/08/2019, 13:18. FINDINGS: Bones: 5 [id number] vertebrae are present. There is normal bony alignment. Remote L4 through S1 posterior lateral radha and pedicle screw fixation with interbody cage material placement. No evidence of hardware failure or loosening. Interval hktl-um-[id number] L2 compression, possibly acute or subacute. No suspicious bony lesions. Soft tissues: Overlying bowel gas pattern is normal. No suspicious soft tissue calcifications. IMPRESSION: Interval L2 compression fracture, possibly acute or subacute. However, at this point, it may be chronic. Consider MRI to identify the presence or absence of bony. Dictated by: Timmy Newman M.D. on 10/21/2020 at 11:42 Approved by: Timmy Newman M.D. on 10/21/2020 at 11:57
[2020-10-21 13:45] VITALS: BP 193/95; PULSE 86; RESP 18; O2SAT 96
--- NOTE | 2020-10-21 15:53 | ED_ITS ---
HPI - Fall General Chief Complaint: Fall Stated Complaint: fall thursday / hurt back and hips Time Seen by Provider: 10/21/20 15:53 Source: patient Mode of arrival: Ambulatory Limitations: no limitations History of Present Illness HPI Narrative: This is a 70-year-old female who had a fall on Thursday. Patient states she fell backwards on her buttocks back. Patient states she may have hit her head but states it was very lightly. She denies any headache. No dizziness. No upper neck pain. Patient's main complaint is lower back pain and hip pain. Patient states she has been able to ambulate but is uncomfortable. She has had some issues with back pain in the past and does have a prior surgical repair in her lower lumbar spine. This was several years ago. Patient states she has noticed some radiation to the left buttock in the last day while sitting. Patient denies any weakness in her lower extremities. She has chronic urinary incontinence but has not appreciated any new changes with bowel inconti nence. Patient denies any new numbness or tingling down her extremities. She has tried Tylenol which has been minimally helpful for her pain. Patient does take medication for poly dermatomyositis, Kleberg's disease, diabetes, hypertension and dyslipidemia, chronic kidney disease as well as asthma and interstitial lung disease. She denies any anticoagulants including aspirin. Related Data Home Medications Medication Instructions Recorded Confirmed Advair HFA 2 puff INHALATION BID 06/27/19 06/27/19 Basaglar KwikPen U-100 Insulin 15 unit SUBCUT QAM 06/27/19 07/08/19 acetaminophen [Tylenol Arthritis 650 mg PO SEEINSTR 06/27/19 06/27/19 Pain] acyclovir 400 mg PO BID 06/27/19 07/08/19 albuterol sulfate 2 puff INHALATION Q4-6H PRN 06/27/19 06/27/19 folic acid 1 mg PO DAILY 06/27/19 07/08/19 furosemide 20 mg PO DAILY 06/27/19 07/08/19 gabapentin 600 mg PO TID 06/27/19 07/08/19 hydroxychloroquine 400 mg PO BEDTIME 06/27/19 07/08/19 insulin aspart U-100 [[facility] 06/27/19 07/08/19 Flexpen U-100 Insulin] Sliding scale loratadine 10 mg PO DAILY 06/27/19 07/08/19 losartan 50 mg PO DAILY 06/27/19 07/08/19 metoclopramide HCl 10 mg PO TID 06/27/19 07/08/19 montelukast 10 mg PO BEDTIME 06/27/19 07/08/19 mycophenolate mofetil [CellCept] 1,000 mg PO BID 06/27/19 07/08/19 pantoprazole 40 mg PO DAILY 06/27/19 07/08/19 potassium chloride 20 meq PO DAILY 06/27/19 07/08/19 prednisone 5 mg PO DAILY 06/27/19 07/08/19 rosuvastatin [Crestor] 10 mg PO DAILY 06/27/19 07/08/19 nitrofurantoin macrocrystal 100 mg PO BID 07/08/19 07/08/19 Previous Rx's Medication Instructions Recorded acetaminophen 650 mg PO Q6HR PRN #40 tab 07/12/19 aspirin 81 mg PO BID #40 tab 07/12/19 docusate sodium [DOK] 100 mg PO BID #40 cap 07/12/19 hydroxyzine pamoate 25 mg PO Q4HR PRN #40 cap 07/12/19 morphine 15 mg PO Q6HR PRN #40 tab 07/12/19 cyclobenzaprine 10 mg PO TID PRN #10 tab 10/21/20 morphine 15 mg PO Q6H PRN #10 tab 10/21/20 Allergies Allergy/AdvReac Type Severity Reaction Status Date / Time Penicillins Allergy Severe Swelling Verified 07/08/19 11:03 of Lip/Tongue/Throat amoxicillin Allergy Intermediate Hives Verified 07/08/19 11:03 oxycodone Allergy Intermediate Hives Verified 07/08/19 11:03 Sulfa (Sulfonamide Allergy Intermediate Hives Verified 07/08/19 11:03 Antibiotics) Review of Systems Review of Systems ROS Unobtainable: All systems reviewed & are unremarkable except as noted in HPI and below Patient History Medical History Glynn's disease Arthritis Asthma Chronic cough CKD (chronic kidney disease), stage III Diabetes Edema GERD (gastroesophageal reflux disease) Hiatal hernia HLD (hyperlipidemia) HTN (hypertension) Incontinence Interstitial lung disease Nasal polyp Neuropathy Pneumonia Polymyositis Sarcoidosis SCC (squamous cell carcinoma) Surgical History H/O wrist surgery History of arthroplasty of left knee History of arthroplasty of right knee Hx of bilateral cataract extraction Hx of cholecystectomy Hx of hernia repair Hx of tonsillectomy Status post correction of deviated nasal septum Social History household members: none Smoking Status: Never smoker alcohol intake: current Smoking Status: Never smoker alcohol intake frequency: holidays/special occasions only Substance Use Type: does not use Exam Narrative Exam Narrative: GENERAL: Alert and oriented x three, Female with the BMI of 35 in mild to moderate distress. HEENT: Head normocephalic, atraumatic, EOMI, pupils reactive, face symmetric, moist mucous membranes NECK: Supple, full range of motion CARDIOVASCULAR: Regular rate and rhythm without murmurs, rubs or gallops. RESPIRATORY: Breath sounds equal bilaterally, no wheezes rales or rhonchi. ABDOMEN: Soft, nontender. Normoactive bowel sounds all 4 quadrants. No guarding or rebound, rigidity, no mass : No CVA tenderness BACK: No cervical, thoracic vertebral point tenderness. Patient has tenderness from L1 through L5 on exam. Patient has decreased range of motion. No saddle anesthesia. Muscle strength is 5/5 in lower extremities, With hip flexion, knee flexion-extension of the knees as well as plantar and dorsiflexion, DTRs are 2/4 and lower extremities. Dorsalis pedis and tibialis pulses are 2+ lower extremities. Sensation is intact in the lower extremities. Healed incision lower lumbar spine. EXTREMITIES: Normal range of motion, no clubbing or edema. Neurovascularly intact NEUROLOGICAL: Cranial nerves II through XII grossly intact. Moving all extremities SKIN: Warm, dry, no petechiae, no rashes or lesions, no ecchymosis. Initial Vital Signs Initial Vital Signs: Vital Signs Temperature 98.3 F 10/21/20 11:35 Pulse Rate 80 10/21/20 11:35 Respiratory Rate 16 10/21/20 11:35 Blood Pressure 231/107 H 10/21/20 11:35 Pulse Oximetry 92 10/21/20 11:35 Course Orders Ordered: ED Orders 10/21/20 11:50 XR hip w pel if done BOUHCRA 3to4V Stat 10/21/20 11:51 XR lumbar spine 2-3V Stat Discontinued Medications Diazepam (Diazepam 5 Mg Tablet) 10 mg PO NOW ONE Stop: 10/21/20 16:10 Last Admin: 10/21/20 16:15 Dose: 10 mg Documented by: SHANICE Morphine Sulfate (Morphine 4 Mg/Ml Inj) 4 mg IM NOW ONE Stop: 10/21/20 16:10 Last Admin: 10/21/20 16:15 Dose: 4 mg Documented by: SHANICE Vital Signs Vital signs: Vital Signs - 8 hr 10/21/20 13:45 10/21/20 16:26 Pulse Rate 86 88 Respiratory Rate 18 12 Blood Pressure 193/95 H 168/7 H Pulse Oximetry 96 98 MDM - Fall Lab Data Labs: Point of Care Testing Glucose POC 127 Urine Dip Bedside Urine Glucose Negative Bedside Urine Bilirubin - Negative Bedside Urine Ketone - Negative Urine Specific [place] 1.020 Bedside Urine Occult Blood - Negative Bedside Urine pH 7 Bedside Urine Protein + 30 Bedside Urine Urobilinogen - Negative Bedside Urine Nitrite - Negative Bedside Urine Leukocytes - Negative Esterase Imaging Data Lspine xray: Radiologist's Impression: [address] [id number] ReportSigned Patient: Dorene Small LMR#: [id number]: 1950Acct:[id number]/Sex: 70 / FDate of Service: 10/21/20Loc: EDAccession Number: [id number] Procedure: XR lumbar spine 2-3V Ordering Provider: Zeny Schumacher D.O. PROCEDURE: XR LUMBAR SPINE 2-3V INDICATIONS: fall/back pain TECHNIQUE: 3 views of the lumbar spine were acquired. COMPARISON: [facility] [place], , XR LUMBAR SPINE 2 OR 3 VIEWS, 03/08/2020, 11:15. [facility], , XR LUMBAR SPINE 2-3V, 07/08/2019, 13:18. FINDINGS: Bones: 5 [id number]-[id number]-[id number] vertebrae are present. There is normal bony alignment. Remote L4 through S1 posterior lateral radha and pedicle screw fixation with interbody cage material placement. No evidence of hardware failure or loosening. Interval [id number] L2 compression, possibly acute or subacute. No suspicious bony lesions. Soft tissues: Overlying bowel gas pattern is normal. No suspicious soft tissue calcifications. IMPRESSION: Interval L2 compression fracture, possibly acute or subacute. However, at this point, it may be chronic. Consider MRI to identify the presence or absence of bony. Dictated by: Timmy Newman M.D. on 10/21/2020 at 11:42 Approved by: Timmy Newman M.D. on 10/21/2020 at 11:57 [facility] Narrative Medical decision making narrative: this is an at 70-year-old female with recent ground level fall who is tender over the lumbar spine with possible new L2 compression fracture. Discussed with patient offered CT imaging your unable to obtain MRI here. Her neurologic symptoms at this time to warrant emergent MRI but CT imaging might be helpful to have some additional evaluation. Patient defers she prefers at this time to do pain control and follow-up with her primary care spinal surgeon for additional imaging as needed. Patient states she does not tolerate oxycodone, she has taken morphine in the past without issue and was given a short course here in the department. She was also given prescription for muscle spasm. Patient was given a dose of IM morphine here in the department as well as Valium. She states she does have a walker at home and she has been ambulating. Return precautions discussed. Discharge Plan Departure Patient Disposition: Home Clinical Impression: Lumbar back pain, Compression fracture of L2 Instructions: DI for Vertebral Fracture Activity Restrictions/Additional Instructions: Follow-up with your orthopedic/ spinal surgeon in the next week. Your imaging shows new L2 compression fracture which is possibly from your recent fall. As discussed MRI would likely be the appropriate next step. This is not available today and your physician can help arrange this as outpatient. Take pain medication as prescribed. This medication can make you sleepy do not drive, perform hazardous activities or make any major decisions while taking it. This medication will make you constipated please take a stool softener once to twice daily until stools are soft and regular. Prescription to [facility] in [place]. I would recommend using your walker at home. Please return for rapidly worsening pain, numbness, weakness in her extremities, inability to walk, loss bowel continence or numbness in her groin, lightheadedness or passing out or other new or concerning symptoms. Prescriptions: New morphine 15 mg tablet 15 mg PO Q6H PRN (Reason: pain) Qty: 10 RF: 0 cyclobenzaprine 10 mg tablet 10 mg PO TID PRN (Reason: muscle spasm) Qty: 10 RF: 0 No Action losartan 50 mg Tablet 50 mg PO DAILY RF: 0 prednisone 5 mg Tablet 5 mg PO DAILY RF: 0 acyclovir 400 mg Tablet 400 mg PO BID RF: 0 acetaminophen [Tylenol Arthritis Pain] 650 mg Tablet Extended Release 650 mg PO SEEINSTR RF: 0 mycophenolate mofetil [CellCept] 500 mg Tablet 1,000 mg PO BID RF: 0 pantoprazole 40 mg Tablet,Delayed Release (Dr/Ec) 40 mg PO DAILY RF: 0 gabapentin 300 mg Capsule 600 mg PO TID RF: 0 folic acid 1 mg Tablet 1 mg PO DAILY RF: 0 montelukast 10 mg Tablet 10 mg PO BEDTIME RF: 0 furosemide 20 mg Tablet 20 mg PO DAILY RF: 0 hydroxychloroquine 200 mg Tablet 400 mg PO BEDTIME RF: 0 albuterol sulfate 90 mcg/actuation Hfa Aerosol Inhaler 2 puff INHALATION Q4-6H PRN (Reason: Shortness Of Breath) RF: 0 loratadine 10 mg Tablet 10 mg PO DAILY RF: 0 metoclopramide HCl 10 mg Tablet 10 mg PO TID RF: 0 insulin aspart U-100 [Novolog Flexpen U-100 Insulin] 100 unit/mL (3 mL) Insulin Pen 5 - 10 unit SUBCUT QACDINNER MDD Sliding scale RF: 0 rosuvastatin [Crestor] 10 mg Tablet 10 mg PO DAILY RF: 0 Advair HFA 230-21 mcg/actuation Hfa Aerosol Inhaler 2 puff INHALATION BID RF: 0 Basaglar KwikPen U-100 Insulin 100 unit/mL (3 mL) Insulin Pen 15 unit SUBCUT QAM RF: 0 potassium chloride 20 mEq Tablet Extended Release 20 meq PO DAILY RF: 0 nitrofurantoin macrocrystal 100 mg Capsule 100 mg PO BID RF: 0 acetaminophen 325 mg Tablet 650 mg PO Q6HR PRN (Reason: Pain, Mild (1-3)) Qty: 40 RF: 0 aspirin 81 mg Tablet,Delayed Release (Dr/Ec) 81 mg PO BID Qty: 40 RF: 0 docusate sodium [DOK] 100 mg Capsule 100 mg PO BID Qty: 40 RF: 0 morphine 15 mg Tablet 15 mg PO Q6HR PRN (Reason: Pain, Severe (7-10)) Qty: 40 RF: 0 hydroxyzine pamoate 25 mg Capsule 25 mg PO Q4HR PRN (Reason: Nausea And Vomiting) Qty: 40 RF: 0 Referrals: Rufina Stockton DO [Primary Care Provider] -
[2020-10-21] MEDS: diazePAM 5 MG TABLET 10 MG PO (16:15)
[2020-10-21] MEDS: MORPHINE 4 MG/ML INJ IM (16:15)
[2020-10-21 16:26] VITALS: BP 168/7; PULSE 88; RESP 12; O2SAT 98
== END 2020-10-21 16:27 | disposition home or self-care (01) ==
PROVIDERS: Emergency Provider Emergency Medicine; PCP Family Medicine
DX: M54.42 Lumbago with sciatica, left side (principal); M48.56XA Collapsed vertebra, not elsewhere classified, lumbar region, initial encounter for fracture; W18.30XA Fall on same level, unspecified, initial encounter
CPT/HCPCS: 72100; 73522; 81003; 82962; 96372; 99283; 99284; J2270

== ENCOUNTER 2020-10-24 04:43 | Inpatient (IN) | payer MEDICARE, BC, SELFPAY ==
[2019-07-08 17:54] VITALS: BMI 34.9
[2020-10-24] VITALS (24 sets, daily range): BP systolic 91–134; BP diastolic 52–68; PULSE 78–112; RESP 11–20; TEMP 36.3–37.6; O2SAT 86–100; BMI 36.9; BMI 35.6
--- NOTE | 2020-10-24 04:44 | DI.RAD.S_ITS ---
PROCEDURE: XR CHEST 1V INDICATIONS: Shortness of breath TECHNIQUE: One view of the chest was acquired. COMPARISON: [facility], CR, XR CHEST 2V, 05/20/2018, 14:26. FINDINGS: Surgical changes and devices: None. Lungs and pleura: Patchy opacities noted in the lungs bilaterally. No pleural effusions or pneumothorax. Mediastinum: Mediastinal contours appear normal. Heart size is normal. Bones and chest wall: No suspicious bony lesions. Overlying soft tissues appear unremarkable. IMPRESSION: Patchy bilateral lung opacities most pronounced in the left lung base concerning for pneumonia. Dictated by: Hiral Mercado MD, PhD on 10/24/2020 at 8:56 Approved by: Hiral Mercado MD, PhD on 10/24/2020 at 8:57
--- NOTE | 2020-10-24 04:45 | DI.CT.S_ITS ---
PROCEDURE: CT HEAD/BRAIN WO CON INDICATIONS: Altered mental status TECHNIQUE: Noncontrast 4.5 mm thick angled axial sections acquired from the foramen magnum to the vertex, with coronal and sagittal reformats. For radiation dose reduction, the following was used: automated exposure control, adjustment of mA and/or kV according to patient size. COMPARISON: None. FINDINGS: Image quality: Excellent. CSF spaces: Basal cisterns are patent. No extra-axial fluid collections. The ventricles are symmetric in size and shape. Brain: No intracranial bleeds or masses. There is cerebral volume loss for age, with resultant ventricular and sulcal prominence. There are periventricular and deep white matter chronic small vessel ischemic changes. There is intracranial internal carotid artery and vertebral artery atherosclerosis. Skull and face: Calvarium and visualized facial bones appear intact, without suspicious lesions. Sinuses: Polypoid mucosal thickening noted in the maxillary sinuses bilaterally, the right sphenoid sinus and the ethmoid air cells bilaterally. Postsurgical changes compatible prior functional endoscopic sinus surgery. The mastoids are clear. IMPRESSION: No acute intracranial disease process. Dictated by: Hiral Mercado MD, PhD on 10/24/2020 at 7:03 Approved by: Hiral Mercado MD, PhD on 10/24/2020 at 7:05
--- NOTE | 2020-10-24 04:50 | DI.CT.S_ITS ---
PROCEDURE: CT LUMBAR SPINE WO CON INDICATIONS: L2 compression fracture with worse pain TECHNIQUE: Noncontrast 3 mm thick sections acquired from the T12 level to the sacrum. Sagittal and coronal reformats were constructed. For radiation dose reduction, the following was used: automated exposure control. COMPARISON: [facility] [place] [facility], CR, XR LUMBAR SPINE 2 OR 3 VIEWS, 07/03/2020, 11:38. [facility], CR, XR LUMBAR SPINE 2-3V, 10/21/2020, 11:50. FINDINGS: Image quality: Excellent. Bones: There is normal bony alignment. No acute vertebral body compression fractures. No suspicious lytic or blastic bony lesions. No pars defects. With reference to prior plain film imaging a mild L2 compression fracture has developed which was not present on plain film imaging 07/03/20. On CT scanning this compression can be compared to the normal level immediately above, L1, documenting a 28% middle 3rd vertebral body height reduction with minimal anterior wedging, when compared to the normal level above. No retropulsion of bone into the spinal canal is seen. No osteolytic or blastic changes identified. The etiology is presumed to be osteoporotic in origin. Metal artifact from prior L4 through S1 fusion procedures reduces quality of visualization over the lower half of the LS spine. Soft tissues: No retroperitoneal masses or hematomas. Visualized aorta is normal in caliber. IMPRESSION: 28% middle 3rd L2 vertebral body presumed osteoporotic compression fracture not present in June of this year. No osteolytic or blastic change is associated. No significant anterior wedging or retropulsion of the vertebral body osseous margin into the spinal canal is seen. Dictated by: Alfred Davies M.D. on 10/24/2020 at 8:50 Approved by: Alfred Davies M.D. on 10/24/2020 at 8:56
--- NOTE | 2020-10-24 04:52 | ED.GENADULT ---
HPI - General Adult General Chief complaint: Back Pain/Injury Stated complaint: GLF Time Seen by Provider: 10/24/20 04:45 Source: patient and EMS Mode of arrival: EMS Limitations: other (Confusion) History of Present Illness HPI narrative: Patient is a 70-year-old female. Much of the HPI provided by EMS secondary to the patient's confusion upon arrival. Patient was seen here in the emergency department approximately 3 days ago after sustaining a fall at home at the end of last week. She was diagnosed with a L2 compression fracture. Was discharged home with pain medication and follow-up instructions. Per EMS they were called by the patient's friend who is also a neighbor. At some point since the patient was discharged from the hospital last she has had multiple falls. She did state that she fell this morning. She thinks that she did hit her head. She has had increasing lower back pain since she was discharged as well. Is reported by EMS that she did take her pain medication this morning. 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 She has been on oxygen up until last month so she is not currently on any oxygen. She has also been having a cough. EMS report that her blood sugar was greater than 100 prior to arrival. Related Data Home Medications Medication Instructions Recorded Confirmed acetaminophen 650 mg 650 mg PO SEEINSTR 06/27/19 06/27/19 tablet,extended release (Tylenol Arthritis Pain) acyclovir 400 mg tablet 400 mg PO BID 06/27/19 10/24/20 albuterol sulfate 90 mcg/actuation 2 puff INHALATION Q4-6H PRN 06/27/19 06/27/19 aerosol inhaler fluticasone propionate 230 2 puff INHALATION BID 06/27/19 06/27/19 mcg-salmeterol 21 mcg/actuation HFA inhaler (Advair HFA) folic acid 1 mg tablet 1 mg PO DAILY 06/27/19 10/24/20 furosemide 20 mg tablet 20 mg PO DAILY 06/27/19 10/24/20 gabapentin 300 mg capsule 600 mg PO TID 06/27/19 10/24/20 hydroxychloroquine 200 mg tablet 400 mg PO BEDTIME 06/27/19 07/08/19 insulin aspart U-100 100 unit/mL 5 unit SUBCUT DAILY 06/27/19 10/24/20 (3 mL) subcutaneous pen (Novolog Flexpen U-100 Insulin aspart) insulin glargine 100 unit/mL (3 15 unit SUBCUT QAM 06/27/19 07/08/19 mL) subcutaneous pen (Basaglar KwikPen U-100 Insulin) loratadine 10 mg tablet 10 mg PO DAILY 06/27/19 07/08/19 losartan 50 mg tablet 50 mg PO DAILY 06/27/19 10/24/20 metoclopramide HCl 10 mg tablet 10 mg PO TID 06/27/19 10/24/20 montelukast 10 mg tablet 10 mg PO BEDTIME 06/27/19 10/24/20 mycophenolate mofetil 500 mg 750 mg PO BID 06/27/19 10/24/20 tablet (CellCept) pantoprazole 40 mg tablet,delayed 40 mg PO DAILY 06/27/19 07/08/19 release potassium chloride 20 mEq 20 meq PO DAILY 06/27/19 10/24/20 tablet,extended release prednisone 5 mg tablet 4 mg PO DAILY 06/27/19 10/24/20 rosuvastatin 10 mg tablet (Crestor) 10 mg PO DAILY 06/27/19 07/08/19 nitrofurantoin macrocrystal 100 mg 100 mg PO BID 07/08/19 07/08/19 capsule acetaminophen 325 mg tablet 500 mg PO Q6HR PRN 10/24/20 10/24/20 magnesium oxide 400 mg PO DAILY 10/24/20 10/24/20 Previous Rx's Medication Instructions Recorded aspirin 81 mg tablet,delayed 81 mg PO BID #40 tab 07/12/19 release docusate sodium 100 mg capsule 100 mg PO BID #40 cap 07/12/19 (DOK) hydroxyzine pamoate 25 mg capsule 25 mg PO Q4HR PRN #40 cap 07/12/19 morphine 15 mg immediate release 15 mg PO Q6HR PRN #40 tab 07/12/19 tablet cyclobenzaprine 10 mg tablet 10 mg PO TID PRN #10 tab 10/21/20 morphine 15 mg immediate release 15 mg PO Q6H PRN #10 tab 10/21/20 tablet Allergies Allergy/AdvReac Type Severity Reaction Status Date / Time Penicillins Allergy Severe Swelling Verified 07/08/19 11:03 of Lip/Tongue/Throat amoxicillin Allergy Intermediate Hives Verified 07/08/19 11:03 oxycodone Allergy Intermediate Hives Verified 07/08/19 11:03 Sulfa (Sulfonamide Allergy Intermediate Hives Verified 07/08/19 11:03 Antibiotics) Review of Systems Review of Systems Narrative: Somewhat limited secondary to patient's confusion Constitutional Comments: She denies fevers Cardiovascular Comments: She denies chest pain Respiratory Comments: She denies shortness of breath however is coughing Gastrointestinal Comments: She denies abdominal pain Musculoskeletal Comments: She states she is having back pain Neurologic Comments: Patient is confused Hematologic/Lymphatic Comments: No reports of anticoagulation Patient History Medical History Glynn's disease Arthritis Asthma Chronic cough CKD (chronic kidney disease), stage III Diabetes Edema GERD (gastroesophageal reflux disease) Hiatal hernia HLD (hyperlipidemia) HTN (hypertension) Incontinence Interstitial lung disease Nasal polyp Neuropathy Pneumonia Polymyositis Sarcoidosis SCC (squamous cell carcinoma) Surgical History H/O wrist surgery History of arthroplasty of left knee History of arthroplasty of right knee Hx of bilateral cataract extraction Hx of cholecystectomy Hx of hernia repair Hx of tonsillectomy Status post correction of deviated nasal septum Social History household members: none Smoking Status: Never smoker alcohol intake: current Smoking Status: Never smoker alcohol intake frequency: holidays/special occasions only Substance Use Type: does not use Exam Initial Vital Signs Initial Vital Signs: Vital Signs Pulse Rate 112 H 10/24/20 04:47 Respiratory Rate 20 10/24/20 04:47 Pulse Oximetry 98 10/24/20 04:47 HENMT Head: normal to inspection and normocephalic Resp Effort & Inspection: cough, not labored and tachypneic Auscultation: rales and rhonchi Cardio Rate: regular rate Rhythm: regular rhythm GI Inspection: normal to inspection Skin General: no rashes or lesions noted Neuro General: patient alert, patient awake, oriented (Person and place however she does not know what year it is) and moves all extremities Extrem General: capillary refill normal Psych Appearance: disheveled Course Orders Ordered: ED Orders 10/24/20 04:44 XR chest 1V Stat EKG-12 Lead Stat RT Consult Eval and Treat Now 10/24/20 04:45 CT head/brain wo con Stat 10/24/20 04:50 CT lumbar spine wo con Stat Acetaminophen Stat Complete Blood Count AUTO DIFF Stat Comprehensive Metabolic Panel Stat Ethanol (ETOH) Stat Lactate (Lactic Acid) Stat Lipase Stat NT-proBNP (BNP-Adult 18+) Stat Procalcitonin Stat Troponin & CK Cardiac Panel Stat 10/24/20 04:53 COVID19 - ADMIT (SACK SEW[employer] MACHINE swab/PCR) Stat 10/24/20 04:58 C-Reactive Protein Quant Stat Ferritin Stat Lactate Dehydrogenase Stat 10/24/20 05:25 Blood Culture Stat 10/24/20 05:54 D Dimer Stat Sodium Chloride (Normal Saline 0.9%) 1,000 mls @ 125 mls/hr IV CONT HUMERA Last Admin: 10/24/20 05:28 Dose: 125 mls/hr Documented by: Discontinued Medications Aspirin (Aspirin 81 Mg Chew Tab) 324 mg PO NOW ONE Stop: 10/24/20 06:07 Last Admin: 10/24/20 06:09 Dose: 324 mg Documented by: Dexamethasone (Dexamethasone 10 Mg/Ml Vial) 10 mg IV NOW ONE Stop: 10/24/20 06:02 Last Admin: 10/24/20 06:10 Dose: 10 mg Documented by: Remdesivir 200 mg/ Sodium (Chloride) 250 mls @ 250 mls/hr IV NOW ONE Stop: 10/24/20 06:02 Vital Signs Vital signs: Vital Signs - 8 hr 10/24/20 04:47 10/24/20 04:54 10/24/20 05:07 Temperature 99.6 F Pulse Rate 112 H 109 H 96 H Respiratory Rate 20 19 Blood Pressure 128/68 Pulse Oximetry 98 95 89 L 10/24/20 05:30 10/24/20 06:00 10/24/20 06:08 Temperature Pulse Rate 104 H 100 H 99 H Respiratory Rate 16 14 14 Blood Pressure 93/54 L Pulse Oximetry 99 100 100 Medical Decision Making Medical Records Medical records reviewed: Yes I reviewed the patient's medical records. Lab Data Lab results reviewed: Yes I reviewed the patient's lab results. Result diagrams: 10/24/20 04:50 10/24/20 04:50 Labs: Lab Results 10/24/20 10/24/20 10/24/20 Range/Units 04:50 04:50 04:50 WBC 12.4 H (4.5-11.0) X10^3/uL RBC 4.44 (4.0-5.2) X10^6/uL Hgb 12.7 (12.0-16.0) g/dL Hct 40.5 (36-46) % MCV 91.3 (80-100) fL MCH 28.6 (26-34) PG MCHC 31.4 (30-36) % RDW 15.0 H (11.6-14.8) % Plt Count 252 (150-400) X10^3/uL Neut % (Auto) 75.9 H (50-75) % Lymph % (Auto) 7.8 L (25-40) % Burt % (Auto) 14.2 H (3-14) % Eos % (Auto) 1.3 L (2-4) % Baso % (Auto) 0.8 (0-2) % Neut # (Auto) 9400 H (1163-3605) /uL Lymph # (Auto) 1000 L (7019-4963) /uL Burt # (Auto) 1800 H (0-900) /uL Eos # (Auto) 200 (0-450) /uL Baso # (Auto) 100 (0-100) /uL Sodium 134 L (137-145) mmol/L Potassium 5.0 (3.4-5.1) mmol/L Chloride 98 (98-107) mmol/L Carbon Dioxide 33 H (22-32) mmol/L BUN 24 H (7-17) mg/dL Creatinine 1.01 (0.52-1.04) mg/dL Estimated GFR 54.2 L (>60) mL/min BUN/Creatinine Ratio 23.8 H (6-22) Glucose 145 H (80-110) mg/dL Lactate 1.1 (0.7-2.1) mmol/L Calcium 10.1 (8.4-10.2) mg/dL Total Bilirubin 0.5 (0.2-1.3) mg/dL AST 21 (14-36) IU/L ALT 10 (<35) IU/L Alkaline Phosphatase 84 (38-126) U/L Lactate Dehydrogenase (313-618) U/L Total Creatine Kinase (30-135) U/L CK-MB (CK-2) CK-MB (CK-2) Rel Index Troponin I (0.01-0.034) ng/mL NT-Pro-B Natriuret Pep (<125) pg/mL Total Protein 6.6 (6.3-8.2) g/dL Albumin 3.7 (3.5-5.0) g/dL Globulin 2.9 (1.7-4.1) g/dL Albumin/Globulin Ratio 1.3 (1.0-2.8) Lipase 28 (23-300) U/L Procalcitonin (<0.5) ng/mL Acetaminophen < 10 L (10-30) ug/mL Ethyl Alcohol < 10 ( - 10) mg/dL SARS-CoV-2 (PCR) (Negative) 10/24/20 10/24/20 10/24/20 Range/Units 04:50 04:50 04:53 WBC (4.5-11.0) X10^3/uL RBC (4.0-5.2) X10^6/uL Hgb (12.0-16.0) g/dL Hct (36-46) % MCV (80-100) fL MCH (26-34) PG MCHC (30-36) % RDW (11.6-14.8) % Plt Count (150-400) X10^3/uL Neut % (Auto) (50-75) % Lymph % (Auto) (25-40) % Burt % (Auto) (3-14) % Eos % (Auto) (2-4) % Baso % (Auto) (0-2) % Neut # (Auto) (6409-3155) /uL Lymph # (Auto) (7377-0871) /uL Burt # (Auto) (0-900) /uL Eos # (Auto) (0-450) /uL Baso # (Auto) (0-100) /uL Sodium (137-145) mmol/L Potassium (3.4-5.1) mmol/L Chloride (98-107) mmol/L Carbon Dioxide (22-32) mmol/L BUN (7-17) mg/dL Creatinine (0.52-1.04) mg/dL Estimated GFR (>60) mL/min BUN/Creatinine Ratio (6-22) Glucose (80-110) mg/dL Lactate (0.7-2.1) mmol/L Calcium (8.4-10.2) mg/dL Total Bilirubin (0.2-1.3) mg/dL AST (14-36) IU/L ALT (<35) IU/L Alkaline Phosphatase (38-126) U/L Lactate Dehydrogenase (313-618) U/L Total Creatine Kinase 52 (30-135) U/L CK-MB (CK-2) TNP CK-MB (CK-2) Rel Index TNP Troponin I 0.040 H (0.01-0.034) ng/mL NT-Pro-B Natriuret Pep 343 H (<125) pg/mL Total Protein (6.3-8.2) g/dL Albumin (3.5-5.0) g/dL Globulin (1.7-4.1) g/dL Albumin/Globulin Ratio (1.0-2.8) Lipase (23-300) U/L Procalcitonin 0.15 (<0.5) ng/mL Acetaminophen (10-30) ug/mL Ethyl Alcohol ( - 10) mg/dL SARS-CoV-2 (PCR) Positive H (Negative) 10/24/20 Range/Units 04:58 WBC (4.5-11.0) X10^3/uL RBC (4.0-5.2) X10^6/uL Hgb (12.0-16.0) g/dL Hct (36-46) % MCV (80-100) fL MCH (26-34) PG MCHC (30-36) % RDW (11.6-14.8) % Plt Count (150-400) X10^3/uL Neut % (Auto) (50-75) % Lymph % (Auto) (25-40) % Burt % (Auto) (3-14) % Eos % (Auto) (2-4) % Baso % (Auto) (0-2) % Neut # (Auto) (6698-1897) /uL Lymph # (Auto) (9183-8616) /uL Burt # (Auto) (0-900) /uL Eos # (Auto) (0-450) /uL Baso # (Auto) (0-100) /uL Sodium (137-145) mmol/L Potassium (3.4-5.1) mmol/L Chloride (98-107) mmol/L Carbon Dioxide (22-32) mmol/L BUN (7-17) mg/dL Creatinine (0.52-1.04) mg/dL Estimated GFR (>60) mL/min BUN/Creatinine Ratio (6-22) Glucose (80-110) mg/dL Lactate (0.7-2.1) mmol/L Calcium (8.4-10.2) mg/dL Total Bilirubin (0.2-1.3) mg/dL AST (14-36) IU/L ALT (<35) IU/L Alkaline Phosphatase (38-126) U/L Lactate Dehydrogenase 908 H (313-618) U/L Total Creatine Kinase (30-135) U/L CK-MB (CK-2) CK-MB (CK-2) Rel Index Troponin I (0.01-0.034) ng/mL NT-Pro-B Natriuret Pep (<125) pg/mL Total Protein (6.3-8.2) g/dL Albumin (3.5-5.0) g/dL Globulin (1.7-4.1) g/dL Albumin/Globulin Ratio (1.0-2.8) Lipase (23-300) U/L Procalcitonin (<0.5) ng/mL Acetaminophen (10-30) ug/mL Ethyl Alcohol ( - 10) mg/dL SARS-CoV-2 (PCR) (Negative) Imaging Data CT scan - head: Attestation: I personally reviewed and interpreted this imaging study as follows: Radiologist's Impression: No acute intracranial abnormality Chest x-ray: Attestation: I personally reviewed and interpreted this imaging study as follows: Radiologist's Impression: Multifocal bilateral pulmonary infiltrates. CT lumbar spine: Radiologist's Impression: Acute appearing nondisplaced fracture of the L2 vertebral body has detail Postsurgical findings of lumbosacral fusion ECG Data Interpretation: Sinus tachycardia Ventricular rate 107 Normal axis Normal QRS Normal QTC No ST T wave change MDM Narrative Medical decision making narrative: Patient was confused upon arrival however there were some aspects of her current situation that she did know. She was able to tell us that she was here couple days ago and was diagnosed with a fractured spine. She was able to say that she has fallen a couple times over the past couple days. She knew that she was in the hospital when she knew her name but did not wait your was. She also seemed to be very confused about other aspects. We asked her if she had been around anyone with COVID and she said yes. Then she stated that she had her COVID vaccine but called at the [facility] vaccine. She was tachypneic. Was hypoxic to the high 80s upon arrival. This improved with 4 L of oxygen by nasal cannula. She did have a wet cough. There was no wheezing. Chest x-ray shows bilateral infiltrates and her COVID test is positive. She is afebrile. Does have a leukocytosis. CT scan of her lumbar spine was obtained secondary to the multiple falls she has been having and also the increase in discomfort and again shows the L2 compression fracture. Given her COVID positive status, multiple falls, confusion, hypoxia admission to the hospital was necessary for further evaluation and treatment. Discussed the case with AYANNA Becerra the hospitalist who will admit for further evaluation and treatment. Discharge Plan Departure Patient Disposition: Admitted As Inpatient Clinical Impression: COVID-19, Compression fracture of L2, Pneumonia, Hypoxia, Altered mental status Admit Date/Time: 10/24/20 06:10 Admit Provider: Shivani Becerra
--- NOTE | 2020-10-24 05:01 | PC.NURSE ---
Patient is confused; oriented to self and location but unclear on date. Came in via EMS and was unsure what the nature of her fall was today but does remember tripping over the dog on Thursday and injuring her back. She states it has gotten worse since Thursday. Taken to CT for imaging. Patient's neighbor Surinder Belcher is named by EMS as her contact and caregiver: [phone]
[2020-10-24 05:06] LABS: Add Manual Diff / Slide Review NO; Basophils Absolute Auto 100 /uL (0-100); Basophils Percent Auto 0.8 % (0-2); Eosinophils Absolute Auto 200 /uL (0-450); Eosinophils Percent Auto 1.3 % (2-4); Hematocrit 40.5 % (36-46); Hemoglobin 12.7 g/dL (12.0-16.0); Lymphocytes Absolute Auto 1000 /uL (1100-4500); Lymphocytes Percent Auto 7.8 % (25-40); Mean Corpuscular HGB Conc 31.4 % (30-36); Mean Corpuscular Hemoglobin 28.6 PG (26-34); Mean Corpuscular Volume 91.3 fL (80-100); Monocytes Absolute Auto 1800 /uL (0-900); Monocytes Percent Auto 14.2 % (3-14); Neutrophils Absolute Auto 9400 /uL (1500-7000); Neutrophils Percent Auto 75.9 % (50-75); Platelet Count 252 X10^3/uL (150-400); Red Blood Cell Count 4.44 X10^6/uL (4.0-5.2); White Blood Cell Count 12.4 X10^3/uL (4.5-11.0)
[2020-10-24 05:15] LABS: Acetaminophen < 10 ug/mL (10-30); Alanine Aminotransferase 10 IU/L (<35); Albumin 3.7 g/dL (3.5-5.0); Albumin Globulin Ratio 1.3 (1.0-2.8); Alkaline Phosphatase 84 U/L (38-126); Aspartate Aminotransferase 21 IU/L (14-36); BUN Creatinine Ratio 23.8 (6-22); Bilirubin Total 0.5 mg/dL (0.2-1.3); Blood Urea Nitrogen 24 mg/dL (7-17); Calcium 10.1 mg/dL (8.4-10.2); Carbon Dioxide 33 mmol/L (22-32); Chloride 98 mmol/L (98-107); Estimated Glomerular Filt Rate 54.2 mL/min (>60); Ethanol (ETOH) < 10 mg/dL; Globulin 2.9 g/dL (1.7-4.1); Glucose 145 mg/dL (80-110); HEMOLYSIS < 15 (0-50); Lactate (Lactic Acid) 1.1 mmol/L (0.7-2.1); Lipase 28 U/L (23-300); Sodium 134 mmol/L (137-145); Total Protein 6.6 g/dL (6.3-8.2)
[2020-10-24] MEDS: SODIUM CHLORIDE 0.9% 1,000 ML 125 ML IV ×3 (05:28→22:08)
[2020-10-24 05:31] LABS: Procalcitonin 0.15 ng/mL (<0.5)
--- NOTE | 2020-10-24 05:32 | PC.NURSE ---
Medications compared with physical bottles brought in by patient. Pt confused and unreliable historian when asked to verify medications and dosages
[2020-10-24 05:35] LABS: Creatine Kinase 52 U/L (30-135)
[2020-10-24 05:48] LABS: NT-proBNP (BNP-Adult 18+) 343 pg/mL (<125)
[2020-10-24 05:55] LABS: COVID19 - ADMIT (NP swab/PCR) POSITIVE (Negative)
[2020-10-24] MEDS: ASPIRIN 81 MG CHEW TAB 324 MG PO (06:09)
[2020-10-24] MEDS: DEXAMETHASONE 10 MG/ML VIAL IV (06:10)
[2020-10-24 06:19] LABS: Lactate Dehydrogenase 908 U/L (313-618)
[2020-10-24 06:29] LABS: D Dimer 760 ng/mL (<230)
[2020-10-24 06:30] LABS: C-Reactive Protein Quant 12.6 mg/dL (<1.0)
[2020-10-24] MEDS: REMDESIVIR 200 MG in SODIUM CHLORIDE 0.9% 210 ML 250 ML IV (06:33)
--- NOTE | 2020-10-24 06:36 | PC.NURSE ---
Remdesivir was not scanned because the barcode did not match with the 100mg bottle that we used. 2 bottles were added to bag of NS per Claudette Arroyo. Verified with [facility]
[2020-10-24 06:52] LABS: Ferritin 81 ng/mL (11-264)
--- NOTE | 2020-10-24 08:51 | ED_ITS ---
HPI - Back Pain/Injury General Chief Complaint: Back Pain/Injury Stated Complaint: GLF Time Seen by Provider: 10/24/20 04:45 Source: patient and EMS Limitations: other (Confusion) History of Present Illness HPI Narrative: This is a 70-year-old female who comes with complaint of ground level fall. Patient states she fell backwards she did hit the back of her head. Patient states she has pain in her right leg patient states it is painful to weightbear. She indicates her inner thigh upper thigh region. She has not had any skin changes. No numbness, tingling or weakness. She denies loss of consciousness. She does not take any anticoagulation. Patient states this medication call fall. She denies any neck or upper back pain. No chest pain or shortness of breath no syncope. No nausea or vomiting. No other new GI or urinary symptoms. Patient Related Data Home Medications Medication Instructions Recorded Confirmed acyclovir 400 mg tablet 400 mg PO BID 06/27/19 10/24/20 gabapentin 300 mg capsule 600 mg PO TID 06/27/19 10/24/20 insulin glargine 100 unit/mL (3 15 unit SUBCUT QAM 06/27/19 10/24/20 mL) subcutaneous pen (Basaglar KwikPen U-100 Insulin) losartan 50 mg tablet 25 mg PO DAILY 06/27/19 10/24/20 metoclopramide HCl 10 mg tablet 10 mg PO TID 06/27/19 10/24/20 montelukast 10 mg tablet 10 mg PO BEDTIME 06/27/19 10/24/20 mycophenolate mofetil 500 mg 750 mg PO BID 06/27/19 10/24/20 tablet (CellCept) potassium chloride 20 mEq 20 meq PO DAILY 06/27/19 10/24/20 tablet,extended release prednisone 5 mg tablet 4 mg PO DAILY 06/27/19 10/24/20 rosuvastatin 10 mg tablet (Crestor) 10 mg PO DAILY 06/27/19 10/24/20 acetaminophen 325 mg tablet 500 mg PO Q6HR PRN 10/24/20 10/24/20 calcium carb-ergocalciferol (vit 1 tab PO DAILY 10/24/20 10/24/20 D2) 600 mg calcium-200 unit tablet cetirizine 10 mg tablet 10 mg PO DAILY 10/24/20 10/24/20 folic acid 400 mcg tablet 0.4 mg PO DAILY 10/24/20 10/24/20 lactobacillus comb no.10 20 20,000 mmu cells PO DAILY 10/24/20 10/24/20 billion cell capsule (Probiotic) Previous Rx's Medication Instructions Recorded docusate sodium 100 mg capsule 100 mg PO BID #40 cap 07/12/19 (DOK) cyclobenzaprine 10 mg tablet 10 mg PO TID PRN #10 tab 10/21/20 morphine 15 mg immediate release 15 mg PO Q6H PRN #10 tab 10/21/20 tablet Allergies Allergy/AdvReac Type Severity Reaction Status Date / Time Penicillins Allergy Severe Swelling Verified 07/08/19 11:03 of Lip/Tongue/Throat amoxicillin Allergy Intermediate Hives Verified 07/08/19 11:03 oxycodone Allergy Intermediate Hives Verified 07/08/19 11:03 Sulfa (Sulfonamide Allergy Intermediate Hives Verified 07/08/19 11:03 Antibiotics) Patient History Medical History Glynn's disease Arthritis Asthma Chronic cough CKD (chronic kidney disease), stage III Diabetes Edema GERD (gastroesophageal reflux disease) Hiatal hernia HLD (hyperlipidemia) HTN (hypertension) Incontinence Interstitial lung disease Nasal polyp Neuropathy Pneumonia Polymyositis Sarcoidosis SCC (squamous cell carcinoma) Surgical History H/O wrist surgery History of arthroplasty of left knee History of arthroplasty of right knee Hx of bilateral cataract extraction Hx of cholecystectomy Hx of hernia repair Hx of tonsillectomy Status post correction of deviated nasal septum Social History household members: none Smoking Status: Never smoker alcohol intake: current Smoking Status: Never smoker alcohol intake frequency: holidays/special occasions only Substance Use Type: does not use Exam Initial Vital Signs Initial Vital Signs: Vital Signs Pulse Rate 112 H 10/24/20 04:47 Respiratory Rate 20 10/24/20 04:47 Pulse Oximetry 98 10/24/20 04:47 Course Orders Ordered: Acetaminophen (Acetaminophen 325 Mg Tablet) 975 mg PO Q8H [facility] Last Admin: 10/24/20 13:26 Dose: 975 mg Documented by: JIMI Atorvastatin Calcium (Atorvastatin 20 Mg Tablet) 20 mg PO DAILY [facility] Cyclobenzaprine HCl (Cyclobenzaprine 10 Mg Tablet) 10 mg PO TID PRN PRN Reason: muscle spasm Dexamethasone (Dexamethasone 10 Mg/Ml Vial) 6 mg IV DAILY [facility] Docusate Sodium (Docusate 100 Mg Capsule) 100 mg PO BID [facility] Enoxaparin Sodium (Enoxaparin 40 Mg/0.4 Ml Syringe) 40 mg SUBCUT DAILY [facility] Folic Acid (Folic Acid 0.4 Mg Tablet) 0.4 mg PO DAILY [facility] Gabapentin (Gabapentin 600 Mg Tablet) 600 mg PO TID [facility] Hydromorphone HCl (Hydromorphone 2 Mg Tablet) 2 mg PO Q4HR PRN PRN Reason: Pain, Severe (7-10) Last Admin: 10/24/20 13:26 Dose: 2 mg Documented by: JIMI Sodium Chloride (Normal Saline 0.9%) 1,000 mls @ 125 mls/hr IV CONT [facility] Last Admin: 10/24/20 13:50 Dose: 125 mls/hr Documented by: Infusion: 10/24/20 13:28 Dose: 125 mls/hr Documented by: Admin: 10/24/20 05:28 Dose: 125 mls/hr Documented by: KIMI Remdesivir 100 mg/ Sodium (Chloride) 250 mls @ 250 mls/hr IV DAILY [facility] Stop: 10/29/20 08:59 Insulin Glargine (Insulin Glargine 100 Unit/Ml 3ml Pen) 15 unit SUBCUT DAILY [facility] Last Admin: 10/24/20 17:23 Dose: 15 unit Documented by: BRYANT Sarabiaigned by: KRYSTEN Lidocaine (Lidocaine Patch 1 Each Adh..Patch) 1 each TOP DAILY [facility] Last Admin: 10/24/20 13:26 Dose: 1 each Documented by: JIMI Lidocaine (Remove Lidocaine Patch) 1 each TOP BEDTIME [facility] Losartan Potassium (Losartan 50 Mg Tablet) 25 mg PO DAILY [facility] Metoclopramide HCl (Metoclopramide Hcl 10 Mg Tablet) 10 mg PO TID [facility] Montelukast Sodium (Montelukast 10 Mg Tablet) 10 mg PO BEDTIME [facility] Stored In Pharmacy 1 each PO PRN PRN PRN Reason: PROTOCOL Ondansetron HCl (Ondansetron 4 Mg/2 Ml Inj) 4 mg IV Q8HR PRN PRN Reason: Nausea And Vomiting Potassium Chloride (Potassium Chloride 20 Meq Tab) 20 meq PO DAILY [facility] Discontinued Medications Acetaminophen (Acetaminophen 325 Mg Tablet) 650 mg PO Q6HR PRN PRN Reason: Fever/Mild Pain (1-3) Aspirin (Aspirin 81 Mg Chew Tab) 324 mg PO NOW ONE Stop: 10/24/20 06:07 Last Admin: 10/24/20 06:09 Dose: 324 mg Documented by: KIMI Dexamethasone (Dexamethasone 10 Mg/Ml Vial) 10 mg IV NOW ONE Stop: 10/24/20 06:02 Last Admin: 10/24/20 06:10 Dose: 10 mg Documented by: KIMI Remdesivir 200 mg/ Sodium (Chloride) 250 mls @ 250 mls/hr IV NOW ONE Stop: 10/24/20 06:02 Last Infusion: 10/24/20 07:41 Dose: 0 mls/hr Documented by: Admin: 10/24/20 06:33 Dose: 250 mls/hr Documented by: KIMI Vital Signs Vital signs: Vital Signs - 8 hr 10/24/20 04:47 10/24/20 04:54 10/24/20 05:07 Temperature 99.6 F Pulse Rate 112 H 109 H 96 H Respiratory Rate 20 19 Blood Pressure 128/68 Pulse Oximetry 98 95 89 L 10/24/20 05:30 10/24/20 06:00 10/24/20 06:08 Temperature Pulse Rate 104 H 100 H 99 H Respiratory Rate 16 14 14 Blood Pressure 93/54 L Pulse Oximetry 99 100 100 MDM - Back Pain/Injury Lab Data Result diagrams: 10/24/20 04:50 10/24/20 04:50 Labs: Lab Results 10/24/20 10/24/20 10/24/20 Range/Units 04:50 04:50 04:50 WBC 12.4 H (4.5-11.0) X10^3/uL RBC 4.44 (4.0-5.2) X10^6/uL Hgb 12.7 (12.0-16.0) g/dL Hct 40.5 (36-46) % MCV 91.3 (80-100) fL MCH 28.6 (26-34) PG MCHC 31.4 (30-36) % RDW 15.0 H (11.6-14.8) % Plt Count 252 (150-400) X10^3/uL Neut % (Auto) 75.9 H (50-75) % Lymph % (Auto) 7.8 L (25-40) % [place] % (Auto) 14.2 H (3-14) % Eos % (Auto) 1.3 L (2-4) % Baso % (Auto) 0.8 (0-2) % Neut # (Auto) 9400 H (8729-7824) /uL Lymph # (Auto) 1000 L (3810-6579) /uL [place] # (Auto) 1800 H (0-900) /uL Eos # (Auto) 200 (0-450) /uL Baso # (Auto) 100 (0-100) /uL D-Dimer (<230) ng/mL Sodium 134 L (137-145) mmol/L Potassium 5.0 (3.4-5.1) mmol/L Chloride 98 (98-107) mmol/L Carbon Dioxide 33 H (22-32) mmol/L BUN 24 H (7-17) mg/dL Creatinine 1.01 (0.52-1.04) mg/dL Estimated GFR 54.2 L (>60) mL/min BUN/Creatinine Ratio 23.8 H (6-22) Glucose 145 H (80-110) mg/dL Lactate 1.1 (0.7-2.1) mmol/L Calcium 10.1 (8.4-10.2) mg/dL Ferritin (11-264) ng/mL Total Bilirubin 0.5 (0.2-1.3) mg/dL AST 21 (14-36) IU/L ALT 10 (<35) IU/L Alkaline Phosphatase 84 (38-126) U/L Lactate Dehydrogenase (313-618) U/L Total Creatine Kinase (30-135) U/L CK-MB (CK-2) CK-MB (CK-2) Rel Index Troponin I (0.01-0.034) ng/mL C-Reactive Protein (<1.0) mg/dL NT-Pro-B Natriuret Pep (<125) pg/mL Total Protein 6.6 (6.3-8.2) g/dL Albumin 3.7 (3.5-5.0) g/dL Globulin 2.9 (1.7-4.1) g/dL Albumin/Globulin Ratio 1.3 (1.0-2.8) Lipase 28 (23-300) U/L Procalcitonin (<0.5) ng/mL Acetaminophen < 10 L (10-30) ug/mL Ethyl Alcohol < 10 ( - 10) mg/dL SARS-CoV-2 (PCR) (Negative) 10/24/20 10/24/20 10/24/20 Range/Units 04:50 04:50 04:53 WBC (4.5-11.0) X10^3/uL RBC (4.0-5.2) X10^6/uL Hgb (12.0-16.0) g/dL Hct (36-46) % MCV (80-100) fL MCH (26-34) PG MCHC (30-36) % RDW (11.6-14.8) % Plt Count (150-400) X10^3/uL Neut % (Auto) (50-75) % Lymph % (Auto) (25-40) % [place] % (Auto) (3-14) % Eos % (Auto) (2-4) % Baso % (Auto) (0-2) % Neut # (Auto) (4940-4682) /uL Lymph # (Auto) (5474-8868) /uL [place] # (Auto) (0-900) /uL Eos # (Auto) (0-450) /uL Baso # (Auto) (0-100) /uL D-Dimer (<230) ng/mL Sodium (137-145) mmol/L Potassium (3.4-5.1) mmol/L Chloride (98-107) mmol/L Carbon Dioxide (22-32) mmol/L BUN (7-17) mg/dL Creatinine (0.52-1.04) mg/dL Estimated GFR (>60) mL/min BUN/Creatinine Ratio (6-22) Glucose (80-110) mg/dL Lactate (0.7-2.1) mmol/L Calcium (8.4-10.2) mg/dL Ferritin (11-264) ng/mL Total Bilirubin (0.2-1.3) mg/dL AST (14-36) IU/L ALT (<35) IU/L Alkaline Phosphatase (38-126) U/L Lactate Dehydrogenase (313-618) U/L Total Creatine Kinase 52 (30-135) U/L CK-MB (CK-2) TNP CK-MB (CK-2) Rel Index TNP Troponin I 0.040 H (0.01-0.034) ng/mL C-Reactive Protein (<1.0) mg/dL NT-Pro-B Natriuret Pep 343 H (<125) pg/mL Total Protein (6.3-8.2) g/dL Albumin (3.5-5.0) g/dL Globulin (1.7-4.1) g/dL Albumin/Globulin Ratio (1.0-2.8) Lipase (23-300) U/L Procalcitonin 0.15 (<0.5) ng/mL Acetaminophen (10-30) ug/mL Ethyl Alcohol ( - 10) mg/dL SARS-CoV-2 (PCR) Positive H (Negative) 10/24/20 10/24/20 Range/Units 04:58 06:10 WBC (4.5-11.0) X10^3/uL RBC (4.0-5.2) X10^6/uL Hgb (12.0-16.0) g/dL Hct (36-46) % MCV (80-100) fL MCH (26-34) PG MCHC (30-36) % RDW (11.6-14.8) % Plt Count (150-400) X10^3/uL Neut % (Auto) (50-75) % Lymph % (Auto) (25-40) % [place] % (Auto) (3-14) % Eos % (Auto) (2-4) % Baso % (Auto) (0-2) % Neut # (Auto) (3618-1320) /uL Lymph # (Auto) (0049-5996) /uL [place] # (Auto) (0-900) /uL Eos # (Auto) (0-450) /uL Baso # (Auto) (0-100) /uL D-Dimer 760 H (<230) ng/mL Sodium (137-145) mmol/L Potassium (3.4-5.1) mmol/L Chloride (98-107) mmol/L Carbon Dioxide (22-32) mmol/L BUN (7-17) mg/dL Creatinine (0.52-1.04) mg/dL Estimated GFR (>60) mL/min BUN/Creatinine Ratio (6-22) Glucose (80-110) mg/dL Lactate (0.7-2.1) mmol/L Calcium (8.4-10.2) mg/dL Ferritin 81 (11-264) ng/mL Total Bilirubin (0.2-1.3) mg/dL AST (14-36) IU/L ALT (<35) IU/L Alkaline Phosphatase (38-126) U/L Lactate Dehydrogenase 908 H (313-618) U/L Total Creatine Kinase (30-135) U/L CK-MB (CK-2) CK-MB (CK-2) Rel Index Troponin I (0.01-0.034) ng/mL C-Reactive Protein 12.6 H (<1.0) mg/dL NT-Pro-B Natriuret Pep (<125) pg/mL Total Protein (6.3-8.2) g/dL Albumin (3.5-5.0) g/dL Globulin (1.7-4.1) g/dL Albumin/Globulin Ratio (1.0-2.8) Lipase (23-300) U/L Procalcitonin (<0.5) ng/mL Acetaminophen (10-30) ug/mL Ethyl Alcohol ( - 10) mg/dL SARS-CoV-2 (PCR) (Negative) Urine Dip Bedside Urine Glucose Negative Bedside Urine Bilirubin - Negative Bedside Urine Ketone - Negative Urine Specific [place] 1.030 Bedside Urine Occult Blood - Negative Bedside Urine pH 6 Bedside Urine Protein + 30 Bedside Urine Urobilinogen - Negative Bedside Urine Nitrite - Negative Bedside Urine Leukocytes - Negative Esterase Discharge Plan Departure Patient Disposition: Admitted As Inpatient Clinical Impression: COVID-19, Compression fracture of L2, Pneumonia, Hypoxia, Altered mental status Admit Date/Time: 10/24/20 06:10 Admit Provider: Shivani Becerra
--- NOTE | 2020-10-24 10:33 | PC.NURSE ---
did not want UA sent to lab for further testing
--- NOTE | 2020-10-24 12:58 | P.HP_ITS ---
History of Present Illness History of Present Illness Date Patient Seen: 10/24/20 Time Patient Seen: 12:58 Chief complaint: GLF Narrative: This is a 70 year old female who presented to the emergency room with altered mental status and confusion. The patient was in the emergency room approximately 3 days ago after sustaining a fall at home and was diagnosed with an L2 compression fracture. She was discharged with morphine at that time. She continues to have had increasing lower back pain since she was discharged and had trouble moving her leg complaining of sciatic type pain. She states she has had fevers on and off for the past 2 months, but cannot quantify these. She has a chronic cough which she reports is unchanged recently due to pulmonary sarcoid osis. She also has a history of myositis and she is on prednisone, mycophenolate, and hydroxychloroquine. She did receive her COVID-19 vaccination, mRNA version, with 2 shots given in April and June respectively. She does report previous exposure within the past 2 weeks to a COVID positive person for a couple of hours. In the emergency room she was noted to desaturate to 86% on room air but responsive initially to 4 L. since then she has been waxing and waning between 0 in 2 L on the floor. Initial laboratory evaluation showed a leukocytosis with a WBC of 12.4, D-dimer of 760, chemistries showed a glucose of 145, CO2 of 33, troponin of 0.040 which down trended to 0.019. COVID-19 testing was positive. LDH was elevated at 908, proBNP was 343, CRP was elevated at 12.6. Procalcitoni n was 0.15. Patient was admitted to Medicine for further evaluation. Patient History Medical History Glynn's disease Arthritis Asthma Chronic cough CKD (chronic kidney disease), stage III Diabetes Edema GERD (gastroesophageal reflux disease) Hiatal hernia HLD (hyperlipidemia) HTN (hypertension) Incontinence Interstitial lung disease Nasal polyp Neuropathy Pneumonia Polymyositis Sarcoidosis SCC (squamous cell carcinoma) Surgical History H/O wrist surgery History of arthroplasty of left knee History of arthroplasty of right knee Hx of bilateral cataract extraction Hx of cholecystectomy Hx of hernia repair Hx of tonsillectomy Status post correction of deviated nasal septum Family & Social History Social History: household members none Prior Living Arrangements House Safety & Behavioral: Feels Safe in Current Yes Environment Been Physically Hurt or No Threatened By a Person Suicidal Ideation Description None Tobacco & Substance use: Smoking Status Never smoker alcohol intake current alcohol intake frequency holiday/special occasion Substance Use Type does not use Comment: No relevant past family history Meds Home Medications and Allergies Home Medications Medication Instructions Recorded Confirmed Type acyclovir 400 mg tablet 400 mg PO BID 06/27/19 10/24/20 History gabapentin 300 mg capsule 600 mg PO TID 06/27/19 10/24/20 History insulin glargine 100 unit/mL (3 15 unit SUBCUT QAM 06/27/19 10/24/20 History mL) subcutaneous pen (Basaglar KwikPen U-100 Insulin) losartan 50 mg tablet 25 mg PO DAILY 06/27/19 10/24/20 History metoclopramide HCl 10 mg tablet 10 mg PO TID 06/27/19 10/24/20 History montelukast 10 mg tablet 10 mg PO BEDTIME 06/27/19 10/24/20 History mycophenolate mofetil 500 mg 750 mg PO BID 06/27/19 10/24/20 History tablet (CellCept) potassium chloride 20 mEq 20 meq PO DAILY 06/27/19 10/24/20 History tablet,extended release prednisone 5 mg tablet 4 mg PO DAILY 06/27/19 10/24/20 History rosuvastatin 10 mg tablet (Crestor) 10 mg PO DAILY 06/27/19 10/24/20 History docusate sodium 100 mg capsule 100 mg PO BID #40 cap 07/12/19 10/24/20 Rx (DOK) cyclobenzaprine 10 mg tablet 10 mg PO TID PRN #10 tab 10/21/20 10/24/20 Rx morphine 15 mg immediate release 15 mg PO Q6H PRN #10 tab 10/21/20 10/24/20 Rx tablet acetaminophen 325 mg tablet 500 mg PO Q6HR PRN 10/24/20 10/24/20 History calcium carb-ergocalciferol (vit 1 tab PO DAILY 10/24/20 10/24/20 History D2) 600 mg calcium-200 unit tablet cetirizine 10 mg tablet 10 mg PO DAILY 10/24/20 10/24/20 History folic acid 400 mcg tablet 0.4 mg PO DAILY 10/24/20 10/24/20 History lactobacillus comb no.10 20 20,000 mmu cells PO DAILY 10/24/20 10/24/20 History billion cell capsule (Probiotic) Allergies Allergy/AdvReac Type Severity Reaction Status Date / Time Penicillins Allergy Severe Swelling Verified 07/08/19 11:03 of Lip/Tongue/Throat amoxicillin Allergy Intermediate Hives Verified 07/08/19 11:03 oxycodone Allergy Intermediate Hives Verified 07/08/19 11:03 Sulfa (Sulfonamide Allergy Intermediate Hives Verified 07/08/19 11:03 Antibiotics) Review of Systems Review of Systems Narrative: All other systems reviewed with the patient and are negative unless otherwise stated. Exam Vital Signs (past 8 hours): - 10/24/20 05:07 10/24/20 05:30 10/24/20 06:00 Temperature Pulse Rate 96 H 104 H 100 H Respiratory Rate 16 14 Blood Pressure Pulse Oximetry 89 L 99 100 10/24/20 06:08 10/24/20 06:30 10/24/20 07:00 Temperature Pulse Rate 99 H 97 H 93 H Respiratory Rate 14 15 13 Blood Pressure 93/54 L 103/54 L 104/55 L Pulse Oximetry 100 98 99 10/24/20 07:30 10/24/20 08:00 10/24/20 08:30 Temperature Pulse Rate 91 H 88 87 Respiratory Rate 11 L 11 L 11 L Blood Pressure 91/52 L 110/53 L 108/58 L Pulse Oximetry 99 97 97 10/24/20 09:00 10/24/20 09:30 10/24/20 10:00 Temperature Pulse Rate 85 84 83 Respiratory Rate 13 12 13 Blood Pressure 103/56 L 111/56 L Pulse Oximetry 91 93 97 10/24/20 10:01 10/24/20 10:25 10/24/20 10:30 Temperature Pulse Rate 83 86 83 Respiratory Rate 12 16 13 Blood Pressure 110/55 L 124/60 121/59 L Pulse Oximetry 97 96 97 10/24/20 11:20 Temperature 98.0 F Pulse Rate 89 Respiratory Rate 17 Blood Pressure 134/60 Pulse Oximetry 98 Oxygen Delivery Method Nasal Cannula Oxygen Flow Rate 2 Narrative Exam Narrative: GENERAL APPEARANCE: Chronically ill-appearing, obese female with BMI of 35.6, in no acute distress. SKIN: Inspection of the skin reveals no rashes, ulcerations or petechiae. HEENT: Normocephalic atraumatic, extraocular muscles are intact, oropharynx is clear and mucous membranes are moist, neck is supple without adenopathy NECK: Supple and symmetric. There was no thyroid enlargement, and no tenderness, or masses were felt. CHEST: Normal AP diameter and normal contour without any kyphoscoliosis. LUNGS: Auscultation of the lungs revealed bibasilar rhonchi without wheezing. CARDIOVASCULAR: There was a regular rate and rhythm without any murmurs, gallops, rubs. Peripheral pulses were 2+ and symmetric. ABDOMEN: Soft and nontender with normal bowel sounds. No ascites was noted. MUSCULOSKELETAL: tenderness lumbar spine. EXTREMITIES: No cyanosis, clubbing or edema. NEUROLOGIC: Alert and oriented x 3. Normal affect. Strength is grossly +5/5 in the Upper Extremities and Lower Extremities Bilaterally but somewhat limited by pain. Objective ECG Impression: Sinus tachycardia without evidence of acute ischemia. Labs Result Diagrams: 10/24/20 04:50 10/24/20 04:50 Labs: Laboratory Results - last 24 hr 10/24/20 10/24/20 10/24/20 04:50 04:50 04:50 WBC 12.4 H RBC 4.44 Hgb 12.7 Hct 40.5 MCV 91.3 MCH 28.6 MCHC 31.4 RDW 15.0 H Plt Count 252 Neut % (Auto) 75.9 H Lymph % (Auto) 7.8 L [place] % (Auto) 14.2 H Eos % (Auto) 1.3 L Baso % (Auto) 0.8 Neut # (Auto) 9400 H Lymph # (Auto) 1000 L [place] # (Auto) 1800 H Eos # (Auto) 200 Baso # (Auto) 100 D-Dimer Sodium 134 L Potassium 5.0 Chloride 98 Carbon Dioxide 33 H BUN 24 H Creatinine 1.01 Estimated GFR 54.2 L BUN/Creatinine Ratio 23.8 H Glucose 145 H Lactate 1.1 Calcium 10.1 Ferritin Total Bilirubin 0.5 AST 21 ALT 10 Alkaline Phosphatase 84 Lactate Dehydrogenase Total Creatine Kinase CK-MB (CK-2) CK-MB (CK-2) Rel Index Troponin I C-Reactive Protein NT-Pro-B Natriuret Pep Total Protein 6.6 Albumin 3.7 Globulin 2.9 Albumin/Globulin Ratio 1.3 Lipase 28 Procalcitonin Acetaminophen < 10 L Ethyl Alcohol < 10 SARS-CoV-2 (PCR) 10/24/20 10/24/20 10/24/20 04:50 04:50 04:53 WBC RBC Hgb Hct MCV MCH MCHC RDW Plt Count Neut % (Auto) Lymph % (Auto) [place] % (Auto) Eos % (Auto) Baso % (Auto) Neut # (Auto) Lymph # (Auto) [place] # (Auto) Eos # (Auto) Baso # (Auto) D-Dimer Sodium Potassium Chloride Carbon Dioxide BUN Creatinine Estimated GFR BUN/Creatinine Ratio Glucose Lactate Calcium Ferritin Total Bilirubin AST ALT Alkaline Phosphatase Lactate Dehydrogenase Total Creatine Kinase 52 CK-MB (CK-2) TNP CK-MB (CK-2) Rel Index TNP Troponin I 0.040 H C-Reactive Protein NT-Pro-B Natriuret Pep 343 H Total Protein Albumin Globulin Albumin/Globulin Ratio Lipase Procalcitonin 0.15 Acetaminophen Ethyl Alcohol SARS-CoV-2 (PCR) Positive H 10/24/20 10/24/20 04:58 06:10 WBC RBC Hgb Hct MCV MCH MCHC RDW Plt Count Neut % (Auto) Lymph % (Auto) [place] % (Auto) Eos % (Auto) Baso % (Auto) Neut # (Auto) Lymph # (Auto) [place] # (Auto) Eos # (Auto) Baso # (Auto) D-Dimer 760 H Sodium Potassium Chloride Carbon Dioxide BUN Creatinine Estimated GFR BUN/Creatinine Ratio Glucose Lactate Calcium Ferritin 81 Total Bilirubin AST ALT Alkaline Phosphatase Lactate Dehydrogenase 908 H Total Creatine Kinase CK-MB (CK-2) CK-MB (CK-2) Rel Index Troponin I C-Reactive Protein 12.6 H NT-Pro-B Natriuret Pep Total Protein Albumin Globulin Albumin/Globulin Ratio Lipase Procalcitonin Acetaminophen Ethyl Alcohol SARS-CoV-2 (PCR) Assessment & Plan Assessment & Plan narrative: This is a 70 year old female who presented to the emergency room with altered mental status and confusion. The patient was in the emergency room approximately 3 days ago after sustaining a fall at home and was diagnosed with an L2 compression fracture and discharged on morphine. She also possibly has COVID pneumonia and new hypoxia. 1. Acute L2 compression fracture, subsequent encounter, secondary to fall. - pain control with oxycodone, lidocaine patch, standing tylenol for now. Avoid morphine. - PT/OT consults. - consider orthopedics consultation depending on progress / pain control. 2. COVID pneumonia, presumably acute. - will continue remdesevir, prednisone for now. Patient received full vaccination back in june, unclear if respiratory failure is due to hypoxia. There is evidence of decreased effectiveness of the vaccine in those on immunotherapy. - CXR with bilateral infiltrates but these are probably chronic given her pulmonary history. 3. acute respiratory failure with hypoxia, improved. - possibly related to COVID 19 pneumonia, however also with pulmonary sarcoid and probably over sedated with morphine on arrival. D-dimer is elevated so will get a CTA to see if there is a PE or worsening lung disease contributing toward her mild hypoxia at this time. - initially 86% on room air. She was on supplemental O2 for her pulmonary disease until about 3 weeks ago. - Goal O2 >88% while on supplemental oxygen. 3. Pulmonary sarcoidosis - continue home medications, CT ordered as noted above. 4. polymyositis - will hold cellcept given active infection possible. Will be on decadron thera py for possible COVID so will hold home prednisone. 5. type 2 diabetes on insulin therapy - continue home therapy 15 units in the AM. Sliding scale and carb consistent diet. 6. Acute toxic / metbolic encephalopathy, improved - possible secondary to hypoxia or acute infection, however given improvement thus far suspect more likely encephalopathy related to morphine use. 7. HTN, chronic - continue home mediations. 8. HLD - continue home crestor. Code: DNR, surrogate decision maker is the patient's neighbor Surinder, or family is her brother listed in chart. Dispo: admitted as inpatient as her stay is expected to exceed two midnights given complexity of her acute illnesses including compression fracture failing outpatient management and acute respiratory failure in the setting of chronic lung disease and new COVID infection. DVT Lovenox daily Quality VTE Deep Vein Thrombosis/Pulmonary Embolism Present on Admission: No MIPS - Admit I confirm the patient?s Advance Care Plan is present, Code status is documented, Surrogate decision maker is in patient?s record [If Yes, STOP here]: Yes
[2020-10-24] MEDS: ACETAMINOPHEN 325 MG TABLET 975 MG PO ×2 (13:26→22:06)
[2020-10-24] MEDS: LIDOCAINE PATCH 1 EACH ADH..PATCH TOP (13:26)
[2020-10-24] MEDS: HYDROMORPHONE 2 MG TABLET PO (13:26)
[2020-10-24 13:37] LABS: Troponin I 0.019 ng/mL (0.01-0.034)
--- NOTE | 2020-10-24 14:44 | PC.NURSE ---
Admit Note Pt arrived to room 231 via stretcher at 1120, pivot transferred to bed, 1 person assist to help steady. Reports does not normally use a walker but has been lately. Alert and oriented to self and place, did initally think she was in [place]. Forgetful at times. On 4L NC with SpO2 98%, decreased to 1L NC with SpO2 93%, desatted to 86% on RA. Lungs coarse throughout bilaterally with exp. rhonchi. Reports lungs are no worse than they usually are. SR in the 80s. Lidocaine patch placed to lower back, Dilaudid/tylenol administered for pain 11/03. Valuables placed in safe per pt request. Purse and clothing and glasses in room. Pt with many bottles of medications from home - morphine PO sent to pharmacy for storage and the rest of the meds in corner of room. Oriented to room and to call light/bed/tv controls. Call light within reach, using appropriately to make needs known. Bed alarm on for safety.
--- NOTE | 2020-10-24 15:42 | DI.CT.S_ITS ---
PROCEDURE: CT ANGIO CHEST PE PROTOCOL INDICATIONS: + d-dimer, hypoxia, COVID + but vaccinated, hx sarcoid TECHNIQUE: After the administration of intravenous contrast, 2 mm thick sections acquired from the pulmonary apices to the posterior costophrenic angles. 3-dimensional maximum intensity projection (MIP) coronal and sagittal reformats were then acquired through the thorax. For radiation dose reduction, the following was used: automated exposure control, adjustment of mA and/or kV according to patient size. COMPARISON: [facility], CR, XR LUMBAR SPINE 2-3V, 10/21/2020, 11:50. [facility], CT, CT CHEST WO CON, 05/09/2020, 12:06. [facility], CT, CT CHEST WO CON, 01/28/2019, 14:44. [facility], CR, XR CHEST 1V, 10/24/2020, 4:42. FINDINGS: Image quality: Respiratory motions in lower lobes limit visualization air for small PE. Pulmonary arteries: Pulmonary arteries are normal in size, and demonstrate no intraluminal filling defects to suggest central pulmonary embolism. Lungs and pleura: Bilateral patchy ground-glass infiltrates consistent with pneumonia. Superimposed small nodules or nodular infiltrates compatible with sarcoidosis. Right middle lobe, lingula and both lower consolidations or atelectasis. No pleural effusions or pneumothorax. Central and peripheral airways are patent. Mediastinum: Heart size is normal, without pericardial effusion. There is moderate coronary artery calcification. Mildly enlarged mediastinal lymph nodes are present. There is a 1.4 x 1.8 cm AP window lymph node. A 1.4 x 2.1 cm subcarinal lymph node is identified.. Thoracic aorta is normal in caliber and enhancement. Esophagus is normal in caliber, without hiatal hernia. Bones and chest wall: No suspicious bony lesions. Ribs and thoracic spine appear intact. Mild chronic compression fracture of L1. Degenerative changes are noted. Thyroid gland is normal. No axillary or supraclavicular adenopathy. Abdomen: There is a 3.3 cm simple appearing cyst in the superior pole of the left kidney. Visualized upper abdominal solid organs appear normal in the early arterial phase of enhancement. IMPRESSION: 1. No definitive evidence for pulmonary embolism. Respiratory motions in lower lobes limit visualization of small subsegmental PE. 2. Bilateral pneumonia. 3. Right middle lobe, lingula and bilateral lower lobe consolidations or atelectasis. 4. Superimposed small nodules or nodular infiltrates bilaterally are compatible with sarcoidosis. 5. Mild mediastinal lymphadenopathy, most likely related to sarcoidosis. Dictated by: Jai Grey M.D. on 10/24/2020 at 16:25 Approved by: Jai Grey M.D. on 10/24/2020 at 16:43
[2020-10-24] MEDS: INSULIN GLARGINE 100 UNIT/ML 3ML PEN 15 UNIT SUBCUT (17:23)
[2020-10-24] MEDS: GABAPENTIN 600 MG TABLET PO (22:05)
[2020-10-24] MEDS: MONTELUKAST 10 MG TABLET PO (22:06)
[2020-10-24] MEDS: METOCLOPRAMIDE HCL 10 MG TABLET PO (22:08)
--- NOTE | 2020-10-24 23:42 | PC.NURSE ---
turned NC to 0.5L 95% earlier, now patient is on RA 91%.
[2020-10-25] VITALS (10 sets, daily range): BP systolic 135–160; BP diastolic 63–74; PULSE 71–77; RESP 17–20; TEMP 36.2–36.6; O2SAT 91–98
[2020-10-25 03:04] LABS: Acinetobacter baumannii Not Detected (Not Detect); Candida albicans Not Detected (Not Detect); Candida glabrata Not Detected (Not Detect); Candida krusei Not Detected (Not Detect); Candida parapsilosis Not Detected (Not Detect); Candida tropicalis Not Detected (Not Detect); E. coli Not Detected (Not Detect); Enterobacter cloacae complex Not Detected (Not Detect); Enterobacteriaceae species Not Detected (Not Detect); Enterococcus species Not Detected (Not Detect); Haemophilus influenzae Not Detected (Not Detect); Listeria monocytogenes Not Detected (Not Detect); Methicillin-resistant gene Not Detected (Not Detect); Neisseria meningitidis Not Detected (Not Detect); Proteus species Not Detected (Not Detect); Pseudomonas aeruginosa Not Detected (Not Detect); Serratia marcescens Not Detected (Not Detect); Staphylococcus species Detected (Not Detect); Streptococcus agalactiae (Gr B Not Detected (Not Detect); Streptococcus pneumonia Not Detected (Not Detect); Streptococcus pyogenes (Gr A) Not Detected (Not Detect); Streptococcus species Not Detected (Not Detect)
--- NOTE | 2020-10-25 03:12 | PC.NURSE ---
Critical lab value: staph species blood culture, given to Shivani Becerra at 0312 in person.
[2020-10-25] MEDS: ACETAMINOPHEN 325 MG TABLET 975 MG PO ×2 (05:06→12:40)
[2020-10-25 05:12] LABS: BUN Creatinine Ratio 41.4 (6-22); Blood Urea Nitrogen 29 mg/dL (7-17); Calcium 8.7 mg/dL (8.4-10.2); Carbon Dioxide 28 mmol/L (22-32); Chloride 108 mmol/L (98-107); Estimated Glomerular Filt Rate > 60.0 mL/min (>60); Glucose 151 mg/dL (80-110); HEMOLYSIS < 15 (0-50); Magnesium 1.7 mg/dL (1.6-2.3); Potassium 4.9 mmol/L (3.4-5.1); Sodium 136 mmol/L (137-145)
[2020-10-25 05:29] LABS: Add Manual Diff / Slide Review NO; Basophils Absolute Auto 100 /uL (0-100); Basophils Percent Auto 1.1 % (0-2); Eosinophils Absolute Auto 0 /uL (0-450); Eosinophils Percent Auto 0.2 % (2-4); Hematocrit 35.9 % (36-46); Hemoglobin 11.5 g/dL (12.0-16.0); Lymphocytes Absolute Auto 500 /uL (1100-4500); Lymphocytes Percent Auto 6.8 % (25-40); Mean Corpuscular HGB Conc 32.1 % (30-36); Mean Corpuscular Hemoglobin 29.5 PG (26-34); Mean Corpuscular Volume 91.7 fL (80-100); Monocytes Absolute Auto 700 /uL (0-900); Monocytes Percent Auto 9.4 % (3-14); Neutrophils Absolute Auto 6400 /uL (1500-7000); Neutrophils Percent Auto 82.5 % (50-75); Platelet Count 240 X10^3/uL (150-400); Red Blood Cell Count 3.92 X10^6/uL (4.0-5.2); Red Cell Distribution Width 14.6 % (11.6-14.8); White Blood Cell Count 7.8 X10^3/uL (4.5-11.0)
[2020-10-25 05:42] LABS: Hemoglobin A1C% w Est Avg Glu 7.2 % (4.0-6.0)
[2020-10-25] MEDS: SODIUM CHLORIDE 0.9% 1,000 ML 125 ML IV (06:07)
[2020-10-25] MEDS: DEXAMETHASONE 10 MG/ML VIAL 6 MG IV (08:38)
[2020-10-25] MEDS: FOLIC ACID 0.4 MG TABLET PO (08:39)
[2020-10-25] MEDS: ATORVASTATIN 20 MG TABLET PO (08:39)
[2020-10-25] MEDS: GABAPENTIN 600 MG TABLET PO ×2 (08:39→12:41)
[2020-10-25] MEDS: DOCUSATE 100 MG CAPSULE PO (08:39)
[2020-10-25] MEDS: ENOXAPARIN 40 MG/0.4 ML SYRINGE SUBCUT (08:39)
[2020-10-25] MEDS: METOCLOPRAMIDE HCL 10 MG TABLET PO (08:42)
[2020-10-25] MEDS: REMDESIVIR 100 MG in SODIUM CHLORIDE 0.9% 230 ML 250 ML IV (08:42)
[2020-10-25] MEDS: HYDROMORPHONE 2 MG TABLET PO ×2 (08:42→17:37)
[2020-10-25] MEDS: LIDOCAINE PATCH 1 EACH ADH..PATCH TOP (08:42)
[2020-10-25] MEDS: POTASSIUM CHLORIDE 20 MEQ TAB PO (08:42)
[2020-10-25] MEDS: LOSARTAN 50 MG TABLET 25 MG PO (08:42)
[2020-10-25] MEDS: INSULIN GLARGINE 100 UNIT/ML 3ML PEN 15 UNIT SUBCUT (08:47)
--- NOTE | 2020-10-25 11:35 | PT.IIE ---
Current Diagnoses COVID-19 (10/24/20) Medical History (Last Reviewed 10/24/20 @ 15:44 by Donny Ambrocio DO) [place]'s disease Arthritis Asthma Chronic cough CKD (chronic kidney disease), stage III Diabetes Edema GERD (gastroesophageal reflux disease) Hiatal hernia HLD (hyperlipidemia) HTN (hypertension) Incontinence Interstitial lung disease Nasal polyp Neuropathy Pneumonia Polymyositis Sarcoidosis SCC (squamous cell carcinoma) Physical Therapy Inpatient Evaluation/Re-Eval M1 PT/OT-IP Prior Functional Status Start: 10/25/20 13:22 Freq: NEEDED Status: Active Protocol: Document 10/25/20 11:35 AB (Rec: 10/25/20 13:44 AB [id number]) Medical Review Prior Functional Status Medical History Reviewed Yes Communication able to make needs known Mobility and Gait pt stated that she is modified independent with all mobilities and ambulation without AD but furniture cruises and occasionally uses her 4WW for indoor mobility but uses 4WW for outdoor mobiltiy Social History Household Members none Living Arrangements Mobile home Number of Floors (Floors) One Floor Number of Stairs To Enter/Railing? 3 steps without rails Home Environment High Toilet,Walk in Shower Home Equipment Front Wheel Walker,Four Wheel Walker,Raised Toilet Seat w/ Armrests,Hand Held Shower,Grab Bars Near Toilet Additional Social History Comment pt stated that her friend Surinder can stay and assist her at home stated that she has 3 WW has an adjustable bed with bilateral rails M2 PT-IP Current Condition Start: 10/25/20 13:22 Freq: NEEDED Status: Active Protocol: Document 10/25/20 11:35 AB (Rec: 10/25/20 13:44 AB [id number]) Physical Therapy Current Condition Current Condition Evaluation Date 10/25/20 Treatment Diagnosis Covid PNA; L2 compression fx; difficulty in walking Onset Date 10/24/20 Precautions Lumbar Precautions Log Roll,No Twisting,Limit Bending,Lifting Restriction of 10 lbs Other Precautions Covid precautions; falls, M3 PT-IP Subjective Start: 10/25/20 13:22 Freq: NEEDED Status: Active Protocol: Document 10/25/20 11:35 AB (Rec: 10/25/20 13:44 AB [id number]) Subjective Physical Therapy Visit Type Type Initial Evaluation Visit Start Time 11:35 Visit Stop Time 12:08 Total Visit Minutes 33 Number of INFORMATION ANALYST Visits 0 Physical Therapy Visit Comments Patient Comments pt is agreeable to do PT Therapy Pain Assessment Pain When Pain Assessed At Rest Pain Present Pain Present Pain Reported Location back Intensity 6 Scale Used Numeric (0 - 10) Pain Management Techniques Distraction,Modification of Treatment,Re-positioning, Timing of Activity with Medications M4 PT-IP Mobility and Gait Start: 10/25/20 13:22 Freq: NEEDED Status: Active Protocol: Document 10/25/20 11:35 AB (Rec: 10/25/20 13:44 AB [id number]) PT-Bed Mobility Assessment Rolling Type of Rolling Log Rolling Level of Assist Standby Assistance Supine to Sit Supine to Sit Standby Assistance,Head of Bed Elevated,Bedrails Sit to Supine Sit to Supine Moderate Assistance,1 Person Assistance,Head of Bed Elevated,Bedrails PT-Transfer Assessment Sit to and From Stand Sit to and from Stand Contact Guard Assistance,1 Person Assistance,Use of Upper Extremities Equipment Transfer Assistive Device Gait Belt,Front Wheeled Walker Orthotic/Prosthetic Devices or Brace: No Comments Mobility Comments pt supine in bed and agreed to do PT. educated on back precautions and log roll bed mobility due to L2 compression fx. pt completed log roll supine to sit SBA using bed rail and HOB elevated. pt was able to sit on EOB CGA. completed sit to stand CGA and ambulated ~ 2 ft using fWW min A but c/o increase back pain and stated that she has to sit back down and ambulated backwards to the bed. requested to lay back in bed and completed sit to supine mod A and cues. positioned pt in bed. call light and table placed within reach. O2 sat at room air maintained : 94-98%. Gait Assessment Gait Gait Assistance Required: Minimum Assistance Distance (Feet) 2 Able to Maintain Weight Bearing Status Yes During Gait Assistive Devices Assistive Device Gait Belt,Front Wheeled Walker Orthotic/Prosthetic Devices or Brace: No Gait Deviations General Gait Pattern Antalgic,Decreased Stride Length,Decreased Feet Clearance Factors Limiting Gait Function Factors Limiting Gait Function Decreased Activity Tolerance, Decreased Strength,Limited Range of Motion,Pain,Poor Balance PT-Balance Assessment Sitting Balance and Reactions Static Sitting Balance Ability Good Dynamic Sitting Balance Ability Good Standing Balance and Reactions Static Standing Balance Ability Fair Dynamic Standing Balance Ability Fair Device Used FWW M5 PT-IP Objective Assessments Start: 10/25/20 13:22 Freq: NEEDED Status: Active Protocol: Document 10/25/20 11:35 AB (Rec: 10/25/20 13:44 AB [id number]) Orientation Orientation/Cognition Level of Alertness Alert Orientation Name,Place,Situation Gross Range of Motion Lower Extremity ROM Assessment Within Functional Limits Strength Lower Extremity Strength Assessment Right Impaired Comments Strength Comments RLE pain limiting movement Sensation Assessment Sensation Gross Sensation WNL Muscle Tone Muscle Tone WNL Yes M6 PT-IP Treatment Start: 10/25/20 13:22 Freq: NEEDED Status: Active Protocol: Document 10/25/20 11:35 AB (Rec: 10/25/20 13:44 AB [id number]) Physical Therapy Treatment Education Education Provided Precautions,Safety M7 PT-IP Assessment and Plan Start: 10/25/20 13:22 Freq: NEEDED Status: Active Protocol: Document 10/25/20 11:35 AB (Rec: 10/25/20 13:44 AB [email or web address]) PT Summary Assessment and Plan Potential Rehabilitation Potential Good Status of Condition at Evaluation Evolving Summary Impairments Pain,ROM,Strength,Balance, Coordination,Sensation,Tone, Cognition,Bed Mobility, Transfers,Gait,Activity Tolerance Assessment Summary pt requiring CGA to min A with mobility using FWW but limited activity tolerance due to c/o back pain. d/c plan depending on progress. pt stated that her friend can stay with her to assist her. will continue to assess progress. Goals Bed Mobility Goal Standby Assistance Transfer Goal Standby Assistance,Front Wheeled Walker Gait Goal Standby Assistance,Front Wheel Walker Gait Distance 100 Other Goals improve bed mobility, transfers to mod I improve ambulation using 4WW SBA 150 ft up/down 3 steps without rails CGA Days to Meet Goals 10 Frequency of Treatment Frequency Of Treatment Once a Day Treatment Plan Physical Therapy Treatment Plan Bed Mobility Training,Transfer Training,Gait Training, Therapeutic Exercise,Balance Retraining,Discharge Planning, Neuromuscular Re-ed, Coordination Retraining Precautions Lumbar Precautions Log Roll,No Twisting,Limit Bending,Lifting Restriction of 10 lbs,Gait Belt above Incisional Area Other Precautions Covid precautions Recommendations To Nursing Amount of Assist Needed 1 Person Assist Discharge Recommendations PT Discharge Recommendations Home with 24/ Assist Available,Home Health,SNF Rehab,Home vs SNF Transportation Needs at Discharge Private Vehicle,Wheelchair/ Cabulance
[2020-10-25] MEDS: INSULIN LISPRO 100 UNIT/ML 3ML VIAL SUBCUT ×2 (12:39→17:37)
[2020-10-25] MEDS: CYCLOBENZAPRINE 10 MG TABLET PO (12:40)
--- NOTE | 2020-10-25 14:37 | PM.DS.1 ---
History of Present Illness History of Present Illness Chief complaint: GLF Narrative: This is a 70 year old female who presented to the emergency room with altered mental status and confusion. The patient was in the emergency room approximately 3 days ago after sustaining a fall at home and was diagnosed with an L2 compression fracture. She was discharged with morphine at that time. She continues to have had increasing lower back pain since she was discharged and had trouble moving her leg complaining of sciatic type pain. She states she has had fevers on and off for the past 2 months, but cannot quantify these. She has a chronic cough which she reports is unchanged recently due to pulmonary sarcoidosis. She also has a history of myositis and she is on prednisone, mycophenolate, and hydroxychloroquine. She did receive her COVID-19 vaccination, mRNA version, with 2 shots given in April and June respectively. She does report previous exposure within the past 2 weeks to a COVID positive person for a couple of hours. In the emergency room she was noted to desaturate to 86% on room air but responsive initially to 4 L. since then she has been waxing and waning between 0 in 2 L on the floor. Initial laboratory evaluation showed a leukocytosis with a WBC of 12.4, D-dimer of 760, chemistries showed a glucose of 145, CO2 of 33, troponin of 0.040 which down trended to 0.019. COVID-19 testing was positive. LDH was elevated at 908, proBNP was 343, CRP was elevated at 12.6. Procalcitonin was 0.15. Patient was admitted to Medicine for further evaluation. Discharge Providers Provider Date of admission: 10/24/20 06:10 Discharge Date: 10/25/20 Primary care physician: Rufina Stockton DO Consults: 10/24/20 15:53 Consult to Occupational Therapy Evaluate & Treat Comment: Physician Instructions: Evaluate and treat Consult to Physical Therapy Evaluate & Treat Comment: Physician Instructions: Evaluate and Treat Discharge provider: Eduardo Hoskins MD Summary Hospital Course Discharge Diagnosis: 1. Acute L2 compression fracture secondary to osteoporosis and fall 2. Acute pneumonia, bacterial versus COVID 3. Possible COVID pneumonia 3. Acute respiratory failure with hypoxia 4. Pulmonary sarcoidosis 5. Chronic bronchiectasis 6. History of polymyositis 7. Insulin-requiring diabetes 8. Acute toxic/metabolic encephalopathy Procedures: Chest CTA: No pulmonary embolism. Bilateral pneumonia. Superimposed small nodules or nodular infiltrates bilaterally compatible with sarcoidosis. Mild mediastinal adenopathy Lumbar CT: 28% middle 3rd L2 vertebral body osteoporotic compression fracture not present in June of this year. No significant anterior wedging or retropulsion. No osteolytic or blastic change. Head CT: No acute intracranial process Patient with history of sarcoidosis, polymyositis, chronic bronchiectasis on previous chest imaging admitted with altered mental status and confusion thought secondary to morphine recently started for compression fracture. She was also noted to be hypoxic with new bilateral infiltrates on chest x-ray and CT and tested positive for COVID. WBC initially mildly elevated. Her mental status and confusion cleared up. For compression fracture pain she is tolerating oral hydromorphone. For pneumonia and respiratory failure she was started on remdesivir and dexamethasone. Her respiratory status has improved where she has oxygen saturation in the mid 90s on room air. She does have a mild cough perhaps slightly more than her chronic cough. It is unclear whether pneumonia is COVID related or bacterial as she does have chronic bronchiectasis on past chest imaging and substantial risk factors for bacterial pneumonia as well. For this reason she is being discharged on oral cefditoren for possible bacterial pneumonia. Overall the patient improved more quickly than expected and able to discharge day following admission. Time Spent with Patient Time spent: Greater than 30 minutes Exam Vital Signs (past 8 hours): - 10/25/20 07:41 10/25/20 10:44 10/25/20 11:00 Temperature 97.7 F 97.2 F L Pulse Rate 71 77 Respiratory Rate 19 20 Blood Pressure 139/70 160/67 H Pulse Oximetry 98 97 97 10/25/20 13:04 Temperature Pulse Rate Respiratory Rate Blood Pressure Pulse Oximetry 93 Oxygen Delivery Method Room Air Oxygen Flow Rate 0 Objective Labs Result Diagrams: 10/25/20 04:43 10/25/20 04:43 Labs: Laboratory Results - last 24 hr 10/25/20 10/25/20 10/25/20 04:43 04:43 04:43 WBC 7.8 RBC 3.92 L Hgb 11.5 L Hct 35.9 L MCV 91.7 MCH 29.5 MCHC 32.1 RDW 14.6 Plt Count 240 Neut % (Auto) 82.5 H Lymph % (Auto) 6.8 L [place] % (Auto) 9.4 Eos % (Auto) 0.2 L Baso % (Auto) 1.1 Neut # (Auto) 6400 Lymph # (Auto) 500 L [place] # (Auto) 700 Eos # (Auto) 0 Baso # (Auto) 100 Sodium 136 L Potassium 4.9 Chloride 108 H Carbon Dioxide 28 BUN 29 H Creatinine 0.70 Estimated GFR > 60.0 BUN/Creatinine Ratio 41.4 H Glucose 151 H Hemoglobin A1c 7.2 H Calcium 8.7 Magnesium 1.7 A. baumannii (PCR) Josie albicans (PCR) C. glabrata (PCR) C. krusei (PCR) C. parapsilosis (PCR) C. tropicalis (PCR) Enterobacteriac sp PCR E. cloacae complex PCR Enterococcus sp PCR E. coli (PCR) H. influenzae (PCR) Klebsiella oxytoca PCR Klebsiella pneumoniae List. monocytogenes PCR N. meningitidis (PCR) Proteus species (PCR) Serratia marcescens PCR Staphylococcus sp PCR Staph aureus (PCR) mecA-Methicil Res Gene Streptococcus sp PCR Group A Strep (PCR) Strep agalactiae (PCR) Strep pneumoniae (PCR) P. aeruginosa (PCR) Christopher/B-Vanco Res Genes KPC-Carbap Res Gene PCR 10/25/20 04:50 WBC RBC Hgb Hct MCV MCH MCHC RDW Plt Count Neut % (Auto) Lymph % (Auto) [place] % (Auto) Eos % (Auto) Baso % (Auto) Neut # (Auto) Lymph # (Auto) [place] # (Auto) Eos # (Auto) Baso # (Auto) Sodium Potassium Chloride Carbon Dioxide BUN Creatinine Estimated GFR BUN/Creatinine Ratio Glucose Hemoglobin A1c Calcium Magnesium A. baumannii (PCR) Not detected Josie albicans (PCR) Not detected C. glabrata (PCR) Not detected C. krusei (PCR) Not detected C. parapsilosis (PCR) Not detected C. tropicalis (PCR) Not detected Enterobacteriac sp PCR Not detected E. cloacae complex PCR Not detected Enterococcus sp PCR Not detected E. coli (PCR) Not detected H. influenzae (PCR) Not detected Klebsiella oxytoca PCR Not detected Klebsiella pneumoniae Not detected List. monocytogenes PCR Not detected N. meningitidis (PCR) Not detected Proteus species (PCR) Not detected Serratia marcescens PCR Not detected Staphylococcus sp PCR Detected H Staph aureus (PCR) Not detected mecA-Methicil Res Gene Not detected Streptococcus sp PCR Not detected Group A Strep (PCR) Not detected Strep agalactiae (PCR) Not detected Strep pneumoniae (PCR) Not detected P. aeruginosa (PCR) Not detected Christopher/B-Vanco Res Genes Not Reportable KPC-Carbap Res Gene PCR Not Reportable [facility] Medical History [place]'s disease Arthritis Asthma Chronic cough CKD (chronic kidney disease), stage III Diabetes Edema GERD (gastroesophageal reflux disease) Hiatal hernia HLD (hyperlipidemia) HTN (hypertension) Incontinence Interstitial lung disease Nasal polyp Neuropathy Pneumonia Polymyositis Sarcoidosis SCC (squamous cell carcinoma) Surgical History H/O wrist surgery History of arthroplasty of left knee History of arthroplasty of right knee Hx of bilateral cataract extraction Hx of cholecystectomy Hx of hernia repair Hx of tonsillectomy Status post correction of deviated nasal septum Social History household members: none Smoking Status: Never smoker alcohol intake: current Discharge Plan Discharge Plan Patient Disposition: Home Provider Discharge Comment: You have been prescribed pain medications for compression fracture of L2 vertebrae. In addition there is presence of pneumonia on x-ray and you tested positive for COVID. However it is not clear if COVID is cause of pneumonia. I am prescribing an oral antibiotic to also treat for possible bacterial pneumonia. Return to the ED if you have fever or worsening cough or shortness of breath. Discharge orders & Medications Prescriptions: New hydromorphone 2 mg Tablet 2 mg PO Q4HR PRN (Reason: Pain, Severe (7-10)) Qty: 30 RF: 0 lidocaine 4 % adhesive patch,medicated 1 patch topical DAILY PRN (Reason: pain) Qty: 15 RF: 0 cyclobenzaprine 5 mg tablet 5 mg PO TID PRN (Reason: muscle spasm) Qty: 30 RF: 0 cefditoren pivoxil 400 mg tablet 400 mg PO BID Qty: 20 RF: 0 Continued cyclobenzaprine 10 mg tablet 10 mg PO TID PRN (Reason: muscle spasm) Qty: 10 RF: 0 acetaminophen 325 mg tablet 500 mg PO Q6HR PRN (Reason: Pain, Mild (1-3)) RF: 0 cetirizine 10 mg Tablet 10 mg PO DAILY RF: 0 folic acid 400 mcg Tablet 0.4 mg PO DAILY RF: 0 calcium carbonate-vitamin D2 600 mg calcium- 200 unit Tablet 1 tab PO DAILY RF: 0 Probiotic 20 billion cell Capsule 20,000 mmu cells PO DAILY RF: 0 losartan 50 mg Tablet 25 mg PO DAILY RF: 0 prednisone 5 mg Tablet 4 mg PO DAILY RF: 0 acyclovir 400 mg Tablet 400 mg PO BID RF: 0 mycophenolate mofetil [CellCept] 500 mg Tablet 750 mg PO BID RF: 0 gabapentin 300 mg Capsule 600 mg PO TID RF: 0 montelukast 10 mg Tablet 10 mg PO BEDTIME RF: 0 metoclopramide HCl 10 mg Tablet 10 mg PO TID RF: 0 rosuvastatin [Crestor] 10 mg Tablet 10 mg PO DAILY RF: 0 Basaglar KwikPen U-100 Insulin 100 unit/mL (3 mL) Insulin Pen 15 unit SUBCUT QAM RF: 0 potassium chloride 20 mEq Tablet Extended Release 20 meq PO DAILY RF: 0 docusate sodium [DOK] 100 mg Capsule 100 mg PO BID Qty: 40 RF: 0 Discontinued morphine 15 mg tablet 15 mg PO Q6H PRN (Reason: pain) Qty: 10 RF: 0 Follow up/Referrals: Rufina Stockton DO [Primary Care Provider] - Diet/Activity/Treatments Diet: Regular Discharge Data Primary Care Provider: Rufina Stockton Quality VTE Deep Vein Thrombosis/Pulmonary Embolism Present on Admission: No
--- NOTE | 2020-10-25 14:52 | OT.IPNOTE ---
Pt being discharge home with friend to assist with all needs, therefore discharge OT eval orders.
--- NOTE | 2020-10-25 19:32 | PC.NURSE ---
Discharge Note: Pt given discharge instructions on Compression fracture, opioid use, Covid 19 discharge instructions, CVA and pneumonia. Also given discharge instructions on new and current medications. Pt confirmed that she will be discharged home with the 24 hour help of her friend and neighbor Surinder. Surinder also will be her ride home. Pt also confirmed that she will be able to make it up the steps to her home. Pt was a 1 person assist to the chair and pain was improved after pain medication administration. IVs and telemetry removed. Pt's home medications except her discontinued morphine po were sent home with patient. Pt gave verbal permission to discard the discontinued medication. Pt was taken to the emergency room entrance and discharged home with her friend Surinder in a private vehicle without incident.
--- NOTE | 2020-10-26 09:16 | CM.DPNOTE ---
DC Note Late Entry Patient discussed in multidisciplinary rounds 7.1.21, Dr Hoskins expected no needs from this EARLY EDUCATION TEACHER This EARLY EDUCATION TEACHER made aware of patient's DC yesterday before end of shift, approx 1615. PT recommending home w/17/11 assist vs HH vs SNF ROB Aguilar concerned about patient returning home, COVID-19+, w/friend Surinder. This EARLY EDUCATION TEACHER suggested to ROB Aguilar that once she completed her own assessment of need yesterday afternoon/evening, if she felt patient was not safe to return home she should alert Dr Hoskins that DC order may need to be cancelled until further investigation done re: DC needs. Inevitably, it appears from chart review, that patient wanted to return home w/friend and ROB Aguilar assisted patient w/DC instructions and patient left w/o incident yesterday evening JW
== END 2020-10-25 19:45 | disposition home or self-care (01) | DRG 177 ==
LOC: ED 06:08 → AC 06:11 → ICU 11:09
PROVIDERS: Internal Medicine; Admitting Provider Nurse Practitioner Family; Emergency Provider Emergency Medicine; PCP Family Medicine; Referring Provider Emergency Medicine; Visit Provider Nurse Practitioner Family
DX: U07.1 COVID-19 (principal); J12.82 Pneumonia due to coronavirus disease 2019; J96.01 Acute respiratory failure with hypoxia; G92 Toxic encephalopathy; J15.9 Unspecified bacterial pneumonia; M33.20 Polymyositis, organ involvement unspecified; M80.08XA Age-related osteoporosis with current pathological fracture, vertebra(e), initial encounter for fracture; D86.0 Sarcoidosis of lung; E11.9 Type 2 diabetes mellitus without complications; I12.9 Hypertensive chronic kidney disease with stage 1 through stage 4 chronic kidney disease, or unspecified chronic kidney disease; E11.22 Type 2 diabetes mellitus with diabetic chronic kidney disease; N18.30 Chronic kidney disease, stage 3 unspecified; E78.5 Hyperlipidemia, unspecified; W18.30XA Fall on same level, unspecified, initial encounter; Z66 Do not resuscitate; Z79.4 Long term (current) use of insulin; J47.9 Bronchiectasis, uncomplicated
CPT/HCPCS: 36415; 70450; 71045; 71275; 72100; 72131; 73522; 80048; 80053; 80320; 80329; 81003; 82550; 82728; 82962; 83036; 83605; 83615; 83690; 83735; 83880; 84145; 84484; 85025; 85379; 86140; 87040; 87150; 87205; 87635; 87797; 93005; 94760; 94762; 96361; 96365; 96375; 97162; 99285; C9803; G0480; J1100; J1650; J1815; Q9967

== ENCOUNTER 2020-11-03 08:47 | Inpatient (IN) | payer MEDICARE, BC, SELFPAY ==
[2020-10-24 11:46] VITALS: BMI 35.6
[2020-11-03] VITALS (22 sets, daily range): BP systolic 111–191; BP diastolic 56–89; PULSE 74–95; RESP 12–22; TEMP 35.6–36.8; O2SAT 77–98; BMI 34.7; BMI 33.1
--- NOTE | 2020-11-03 08:55 | DI.RAD.S_ITS ---
PROCEDURE: XR LUMBAR SPINE 2-3V INDICATIONS: fall pain TECHNIQUE: 2 views of the lumbar spine were acquired. COMPARISON: [facility], CR, XR LUMBAR SPINE 2-3V, 10/21/2020, 11:50. [facility], CR, XR THORACIC SPINE 3V, 11/03/2020, 9:04. [facility], CT, CT LUMBAR SPINE WO CON, 10/24/2020, 4:54. FINDINGS: Bones: Postoperative changes are seen, with bilateral pedicle screws at the L4 through S1 levels. The screws appear well placed. Vertical fixation rods are seen. Spacers are seen at L4-L5 and L5-S1. No findings of hardware failure or hardware loosening are seen. At L2, there is an anterior compression deformity seen, with approximately 50% loss of height anteriorly. This is progressed compared to the 10/24/2020 examination. 5 nonrib-bearing, lumbar type vertebral bodies are seen. No suspicious lytic or blastic lesions can be seen. Soft tissues: Overlying bowel gas pattern is normal. A calcified uterine fibroid is incidentally noted on the left. Cholecystectomy clips are seen. IMPRESSION: L2 compression deformity seen, which has progressed compared to the prior CT. If clinically appropriate, a repeat CT could be considered for further evaluation. Intact appearing lumbosacral fixation hardware. Dictated by: Maik Valdovinos M.D. on 11/03/2020 at 8:54 Approved by: Maik Valdovinos M.D. on 11/03/2020 at 8:56
--- NOTE | 2020-11-03 08:55 | DI.RAD.S_ITS ---
PROCEDURE: XR THORACIC SPINE 3V INDICATIONS: fall pain TECHNIQUE: 3 views of the thoracic spine were acquired. COMPARISON: [facility], CT, CT ANGIO CHEST PE PROTOCOL, 10/24/2020, 16:04. [facility], CT, CT CHEST WO CON, 05/09/2020, 12:06. [facility], CR, XR CHEST 1V, 10/24/2020, 4:42. [facility], CR, XR LUMBAR SPINE 2-3V, 11/03/2020, 9:04. FINDINGS: Bones: No fractures or dislocations. No suspicious bony lesions. 12 pairs of ribs are noted, and appear intact where visualized. Accentuated thoracic kyphosis is seen. Age-appropriate bony degenerative changes are seen. Lumbar spine fixation hardware is partially seen. Soft tissues: No paravertebral stripe thickening. Cholecystectomy clips are seen. IMPRESSION: Degenerative changes, without an acute abnormality. If there is point tenderness (or other clinical suspicion for a fracture not seen on these images) then a dedicated CT could be considered for further evaluation, if clinically appropriate. Dictated by: Maik Valdovinos M.D. on 11/03/2020 at 8:49 Approved by: Maik Valdovinos M.D. on 11/03/2020 at 8:54
--- NOTE | 2020-11-03 08:59 | ED.WEAKNESS ---
HPI - Weakness General Chief complaint: Fall Stated complaint: Weakness Time Seen by Provider: 11/03/20 08:55 History of Present Illness HPI Narrative: Patient is a 70-year-old female who has known L2 compression fracture was positive for COVID October 24 presenting today with increased weakness and diarrhea. She is actually supposed to go to [facility] in 2 days his for increasing weakness. She has been taking hydromorphone for her pain however it made her constipated so she took 1 bottle of magnesium citrate she had diarrhea all last night. This morning she stood up from the toilet and her legs gave out and she fell backwards. She is having some increased back pain. She denies hitting her head she is not on any anticoagulation. Complaining of back pain. Not sure that she is dizzy lightheaded. She denies any chest pain. She has not had any fever. Related Data Home Medications Medication Instructions Recorded Confirmed acyclovir 400 mg tablet 400 mg PO BID 06/27/19 11/03/20 gabapentin 300 mg capsule 600 mg PO TID 06/27/19 11/03/20 insulin glargine 100 unit/mL (3 15 unit SUBCUT QAM 06/27/19 11/03/20 mL) subcutaneous pen (Basaglar KwikPen U-100 Insulin) losartan 50 mg tablet 25 mg PO DAILY 06/27/19 11/03/20 metoclopramide HCl 10 mg tablet 10 mg PO TID 06/27/19 11/03/20 montelukast 10 mg tablet 10 mg PO BEDTIME 06/27/19 11/03/20 mycophenolate mofetil 500 mg 750 mg PO BID 06/27/19 11/03/20 tablet (CellCept) potassium chloride 20 mEq 20 meq PO DAILY 06/27/19 11/03/20 tablet,extended release prednisone 5 mg tablet 4 mg PO DAILY 06/27/19 11/03/20 rosuvastatin 10 mg tablet (Crestor) 10 mg PO DAILY 06/27/19 11/03/20 acetaminophen 325 mg tablet 500 mg PO Q6HR PRN 10/24/20 11/03/20 calcium carb-ergocalciferol (vit 1 tab PO DAILY 10/24/20 11/03/20 D2) 600 mg calcium-200 unit tablet cetirizine 10 mg tablet 10 mg PO DAILY 10/24/20 11/03/20 folic acid 400 mcg tablet 0.4 mg PO DAILY 10/24/20 11/03/20 lactobacillus comb no.10 20 20,000 mmu cells PO DAILY 10/24/20 11/03/20 billion cell capsule (Probiotic) Previous Rx's Medication Instructions Recorded docusate sodium 100 mg capsule 100 mg PO BID #40 cap 07/12/19 (DOK) cyclobenzaprine 10 mg tablet 10 mg PO TID PRN #10 tab 10/21/20 cefdinir 300 mg capsule 300 mg PO BID #20 cap 10/25/20 hydromorphone 2 mg tablet 2 mg PO Q6H PRN #30 tab 10/25/20 lidocaine 4 % topical patch 1 patch TOPICAL DAILY #15 ea 10/25/20 Allergies Allergy/AdvReac Type Severity Reaction Status Date / Time Penicillins Allergy Severe Swelling Verified 07/08/19 11:03 of Lip/Tongue/Throat amoxicillin Allergy Intermediate Hives Verified 07/08/19 11:03 oxycodone Allergy Intermediate Hives Verified 07/08/19 11:03 Sulfa (Sulfonamide Allergy Intermediate Hives Verified 07/08/19 11:03 Antibiotics) Review of Systems Review of Systems ROS Unobtainable: All systems reviewed & are unremarkable except as noted in HPI and below Constitutional Constitutional: Denies body ache(s), Denies chills, Reports fatigue, Denies headache(s) and Reports weakness ENT Ears, Nose, Mouth, and Throat: Denies vertigo, Denies dizziness, Denies headache(s) and Denies neck pain Cardiovascular Cardiovascular: Denies chest pain, Denies irregular heart rhythm, Denies leg edema, Denies lightheadedness and Denies dyspnea Respiratory Respiratory: Denies chest congestion and Denies dyspnea Gastrointestinal Gastrointestinal: Denies abdominal pain, Reports diarrhea and Denies nausea Genitourinary Genitourinary: Denies urinary incontinence, Denies urinary hesitancy and Denies urinary urgency Musculoskeletal Musculoskeletal: Reports as per HPI, Reports back pain, Denies neck pain and Denies numbness Integumentary/Breasts Skin/Breast: Denies rash Neurologic Neurologic: Denies vertigo, Denies dizziness, Denies headache(s), Denies numbness and Reports weakness Endocrine Endocrine: Reports fatigue Patient History Medical History Glynn's disease Arthritis Asthma Chronic cough CKD (chronic kidney disease), stage III Diabetes Edema GERD (gastroesophageal reflux disease) Hiatal hernia HLD (hyperlipidemia) HTN (hypertension) Incontinence Interstitial lung disease Nasal polyp Neuropathy Pneumonia Polymyositis Sarcoidosis SCC (squamous cell carcinoma) Surgical History H/O wrist surgery History of arthroplasty of left knee History of arthroplasty of right knee Hx of bilateral cataract extraction Hx of cholecystectomy Hx of hernia repair Hx of tonsillectomy Status post correction of deviated nasal septum Social History household members: none Smoking Status: Never smoker alcohol intake: current Smoking Status: Never smoker alcohol intake frequency: holidays/special occasions only Substance Use Type: does not use Exam Initial Vital Signs Initial Vital Signs: Vital Signs Temperature 96.1 F L 11/03/20 09:00 Pulse Rate 80 11/03/20 09:00 Respiratory Rate 18 11/03/20 09:00 Blood Pressure 114/82 11/03/20 09:00 Pulse Oximetry 98 11/03/20 09:00 GENERAL: Alert 70-year-old female no obvious injury HEENT: Head atraumatic,EOMI, pupils reactive, face symmetric, moist mucous membranes CARDIOVASCULAR: Regular rate and rhythm without murmurs, rubs or gallops. RESPIRATORY: Breath sounds equal bilaterally, no wheezes rales or rhonchi. ABDOMEN: Soft, nontender EXTREMITIES: Normal range of motion, no clubbing or edema. Neurovascularly intact NEUROLOGICAL: Alert and oriented x4. 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 Course Orders Ordered: ED Orders 11/03/20 09:46 EKG-12 Lead Stat 11/03/20 09:59 Complete Blood Count AUTO DIFF Stat Comprehensive Metabolic Panel Stat Lipase Stat Troponin & CK Cardiac Panel Stat 11/03/20 11:08 CT lumbar spine wo con Stat 11/03/20 12:52 Consult to TONE CABINET ASSEMBLER - Glaze Maker Stat Consult to Physical Therapy Evaluate & Treat 11/03/20 13:55 COVID19 - ADMIT (INFORMATION TECHNOLOGY DATA ANALYST swab/PCR) Stat 11/03/20 14:35 XR chest 1V Stat 11/03/20 16:20 Lactate (Lactic Acid) Stat NT-proBNP (BNP-Adult 18+) Stat Procalcitonin Stat Troponin & CK Cardiac Panel Stat 11/03/20 16:30 Blood Culture Stat Acetaminophen (Acetaminophen 325 Mg Tablet) 975 mg PO Q8H PRN PRN Reason: Pain, Mild (1-3) Hydrocodone Bitart/Acetaminophen (Hydrocodone/Acet 5/325 Tablet) 2 tab PO Q4HR PRN PRN Reason: Pain, Severe (7-10) Acyclovir (Acyclovir 400 Mg Tablet) 400 mg PO BID [facility] Al Hydrox/Mg Hydrox/Simethicone (Mag Hydrox/Alum/Simeth 30 Ml Udc) 30 ml PO Q6HR PRN PRN Reason: Dyspepsia Atorvastatin Calcium (Atorvastatin 20 Mg Tablet) 10 mg PO BEDTIME [facility] Cyclobenzaprine HCl (Cyclobenzaprine 10 Mg Tablet) 10 mg PO TID PRN PRN Reason: Pain, Moderate (4-6) Dexamethasone (Dexamethasone 10 Mg/Ml Vial) 6 mg IV DAILY [facility] Enoxaparin Sodium (Enoxaparin 40 Mg/0.4 Ml Syringe) 40 mg SUBCUT DAILY [facility] Gabapentin (Gabapentin 600 Mg Tablet) 600 mg PO TID [facility] Hydromorphone HCl (Hydromorphone 0.5 Mg Inj) 0.5 mg IV Q6H PRN PRN Reason: Pain, Moderate (4-6) Lactated Ringer's (Lactated Ringers) 1,000 mls @ 100 mls/hr IV CONT [facility] Lidocaine (Lidocaine Patch 1 Each Adh..Patch) 1 each TOP DAILY [facility] Losartan Potassium (Losartan 25 Mg Tablet) 25 mg PO DAILY [facility] Metoclopramide HCl (Metoclopramide Hcl 10 Mg Tablet) 10 mg PO Q6HR PRN PRN Reason: Nausea And Vomiting Montelukast Sodium (Montelukast 10 Mg Tablet) 10 mg PO DAILY [facility] Mycophenolate Mofetil (Mycophenolate Mofetil 500 Mg Tablet) 750 mg PO BID [facility] Naloxone HCl (Naloxone 0.4 Mg/Ml Vial) 0.2 mg IV Q2MIN PRN PRN Reason: Opiate Reversal Ondansetron HCl (Ondansetron 4 Mg/2 Ml Inj) 4 mg IV Q8HR PRN PRN Reason: Nausea And Vomiting Discontinued Medications Remdesivir 200 mg/ Sodium (Chloride) 250 mls @ 250 mls/hr IV NOW ONE Stop: 11/03/20 18:13 Vital Signs Vital signs: Vital Signs - 8 hr 11/03/20 11:00 11/03/20 11:30 11/03/20 11:36 Pulse Rate 77 76 77 Respiratory Rate 13 14 17 Blood Pressure 119/56 L Pulse Oximetry 94 92 92 11/03/20 11:37 11/03/20 12:00 11/03/20 12:32 Pulse Rate 75 88 Respiratory Rate 22 19 Blood Pressure 119/56 L 129/89 Pulse Oximetry 92 77 L 11/03/20 13:00 11/03/20 13:30 11/03/20 14:00 Pulse Rate 75 74 77 Respiratory Rate 12 15 18 Blood Pressure 126/69 111/68 117/83 Pulse Oximetry 93 93 86 L 11/03/20 14:30 11/03/20 15:00 11/03/20 15:30 Pulse Rate 80 77 82 Respiratory Rate 18 15 17 Blood Pressure 132/64 124/66 132/63 Pulse Oximetry 96 93 92 11/03/20 15:46 11/03/20 16:00 Pulse Rate 85 76 Respiratory Rate 17 16 Blood Pressure 156/72 H 144/63 H Pulse Oximetry 91 95 MDM - Weakness Lab Data Result diagrams: 11/03/20 09:59 11/03/20 09:59 Labs: Lab Results 11/03/20 11/03/20 11/03/20 Range/Units 09:59 09:59 09:59 WBC 13.6 H (4.5-11.0) X10^3/uL RBC 4.45 (4.0-5.2) X10^6/uL Hgb 12.7 (12.0-16.0) g/dL Hct 40.6 (36-46) % MCV 91.2 (80-100) fL MCH 28.4 (26-34) PG MCHC 31.2 (30-36) % RDW 15.1 H (11.6-14.8) % Plt Count 270 (150-400) X10^3/uL Neut % (Auto) 77.0 H (50-75) % Lymph % (Auto) 8.9 L (25-40) % [place] % (Auto) 11.0 (3-14) % Eos % (Auto) 2.4 (2-4) % Baso % (Auto) 0.7 (0-2) % Neut # (Auto) 04795 H (0494-5257) /uL Lymph # (Auto) 1200 (0865-6338) /uL [place] # (Auto) 1500 H (0-900) /uL Eos # (Auto) 300 (0-450) /uL Baso # (Auto) 100 (0-100) /uL Sodium 138 (137-145) mmol/L Potassium 4.5 (3.4-5.1) mmol/L Chloride 100 (98-107) mmol/L Carbon Dioxide 35 H (22-32) mmol/L BUN 29 H (7-17) mg/dL Creatinine 1.36 H (0.52-1.04) mg/dL Estimated GFR 38.4 L (>60) mL/min BUN/Creatinine Ratio 21.3 (6-22) Glucose 184 H (80-110) mg/dL Calcium 10.6 H (8.4-10.2) mg/dL Total Bilirubin 0.2 (0.2-1.3) mg/dL AST 27 (14-36) IU/L ALT 16 (<35) IU/L Alkaline Phosphatase 105 (38-126) U/L Total Creatine Kinase 56 (30-135) U/L CK-MB (CK-2) TNP CK-MB (CK-2) Rel Index TNP Troponin I < 0.012 (0.01-0.034) ng/mL Total Protein 6.1 L (6.3-8.2) g/dL Albumin 3.5 (3.5-5.0) g/dL Globulin 2.6 (1.7-4.1) g/dL Albumin/Globulin Ratio 1.3 (1.0-2.8) Lipase 42 (23-300) U/L SARS-CoV-2 (PCR) (Negative) 11/03/20 Range/Units 13:55 WBC (4.5-11.0) X10^3/uL RBC (4.0-5.2) X10^6/uL Hgb (12.0-16.0) g/dL Hct (36-46) % MCV (80-100) fL MCH (26-34) PG MCHC (30-36) % RDW (11.6-14.8) % Plt Count (150-400) X10^3/uL Neut % (Auto) (50-75) % Lymph % (Auto) (25-40) % [place] % (Auto) (3-14) % Eos % (Auto) (2-4) % Baso % (Auto) (0-2) % Neut # (Auto) (7880-1771) /uL Lymph # (Auto) (7669-9657) /uL [place] # (Auto) (0-900) /uL Eos # (Auto) (0-450) /uL Baso # (Auto) (0-100) /uL Sodium (137-145) mmol/L Potassium (3.4-5.1) mmol/L Chloride (98-107) mmol/L Carbon Dioxide (22-32) mmol/L BUN (7-17) mg/dL Creatinine (0.52-1.04) mg/dL Estimated GFR (>60) mL/min BUN/Creatinine Ratio (6-22) Glucose (80-110) mg/dL Calcium (8.4-10.2) mg/dL Total Bilirubin (0.2-1.3) mg/dL AST (14-36) IU/L ALT (<35) IU/L Alkaline Phosphatase (38-126) U/L Total Creatine Kinase (30-135) U/L CK-MB (CK-2) CK-MB (CK-2) Rel Index Troponin I (0.01-0.034) ng/mL Total Protein (6.3-8.2) g/dL Albumin (3.5-5.0) g/dL Globulin (1.7-4.1) g/dL Albumin/Globulin Ratio (1.0-2.8) Lipase (23-300) U/L SARS-CoV-2 (PCR) Positive H (Negative) Imaging Data Extremity x-ray #1: Radiologist Impression: PROCEDURE: XR LUMBAR SPINE 2-3V INDICATIONS: fall pain TECHNIQUE: 2 views of the lumbar spine were acquired. COMPARISON: [facility], CR, XR LUMBAR SPINE 2-3V, 10/21/2020, 11:50. [facility], CR, XR THORACIC SPINE 3V, 11/03/2020, 9:04. [facility], CT, CT LUMBAR SPINE WO CON, 10/24/2020, 4:54. FINDINGS: Bones: Postoperative changes are seen, with bilateral pedicle screws at the L4 through S1 levels. The screws appear well placed. Vertical fixation rods are seen. Spacers are seen at L4-L5 and L5-S1. No findings of hardware failure or hardware loosening are seen. At L2, there is an anterior compression deformity seen, with approximately 50% loss of height anteriorly. This is progressed compared to the 10/24/2020 examination. 5 nonrib-bearing, lumbar type vertebral bodies are seen. No suspicious lytic or blastic lesions can be seen. Soft tissues: Overlying bowel gas pattern is normal. A calcified uterine fibroid is incidentally noted on the left. Cholecystectomy clips are seen. IMPRESSION: L2 compression deformity seen, which has progressed compared to the prior CT. If clinically appropriate, a repeat CT could be considered for further evaluation. Intact appearing lumbosacral fixation hardware. Dictated by: Maik Valdovinos M.D. on 11/03/2020 at 8:54 Extremity x-ray #2: Radiologist Impression: PROCEDURE: XR THORACIC SPINE 3V INDICATIONS: fall pain TECHNIQUE: 3 views of the thoracic spine were acquired. COMPARISON: [facility], CT, CT ANGIO CHEST PE PROTOCOL, 10/24/2020, 16:04. [facility], CT, CT CHEST WO CON, 05/09/2020, 12:06. [facility], CR, XR CHEST 1V, 10/24/2020, 4:42. [facility], CR, XR LUMBAR SPINE 2-3V, 11/03/2020, 9:04. FINDINGS: Bones: No fractures or dislocations. No suspicious bony lesions. 12 pairs of ribs are noted, and appear intact where visualized. Accentuated thoracic kyphosis is seen. Age-appropriate bony degenerative changes are seen. Lumbar spine fixation hardware is partially seen. Soft tissues: No paravertebral stripe thickening. Cholecystectomy clips are seen. IMPRESSION: Degenerative changes, without an acute abnormality. If there is point tenderness (or other clinical suspicion for a fracture not seen on these images) then a dedicated CT could be considered for further evaluation, if clinically appropriate. Dictated by: Maik Valdovinos M.D. on 11/03/2020 at 8:49 Approved by: Maik Valdovinos M.D. on 11/03/2020 at 8:54 Chest x-ray: Radiologist Impression: PROCEDURE: XR CHEST 1V INDICATIONS: sob TECHNIQUE: One view of the chest was acquired. COMPARISON: [facility], CR, XR CHEST 1V, 10/24/2020, 4:42. FINDINGS: Surgical changes and devices: None. Lungs and pleura: Mild airspace opacity within the left lung base. No pleural effusions or pneumothorax. Mediastinum: Mediastinal contours appear normal. Heart size is normal. Bones and chest wall: No suspicious bony lesions. Overlying soft tissues appear unremarkable. IMPRESSION: Left lower lobe pneumonia. Dictated by: Augustus Reed M.D. on 11/03/2020 at 14:47 CT lumbar: Radiologist Impression: PROCEDURE: CT LUMBAR SPINE WO CON INDICATIONS: L2 fracture TECHNIQUE: Noncontrast 3 mm thick sections acquired from the T12 level to the sacrum. Sagittal and coronal reformats were constructed. For radiation dose reduction, the following was used: automated exposure control. COMPARISON: [facility], CT, CT LUMBAR SPINE WO CON, 10/24/2020, 4:54. [facility], CR, XR LUMBAR SPINE 2-3V, 10/21/2020, 11:50. [facility], CR, XR THORACIC SPINE 3V, 11/03/2020, 9:04. [facility], CR, XR LUMBAR SPINE 2-3V, 11/03/2020, 9:04. FINDINGS: Image quality: Excellent. Bones: This patient has a known L2 compression deformity. Since the prior CT dated 10/24/2020, this compression deformity as progressed, now with 50% loss of height centrally. Vacuum phenomenon can be seen within the vertebral body. No new fractures are seen. Postoperative changes are seen, with bilateral pedicle screws at the L4, L5, and S1 levels. The screws appear well placed. Vertical fixation rods are seen. Disc spacers are seen at L4-L5 and L5-S1. There is mild lucency seen adjacent to the left S1 screw, as on series 2 images 62 through 65. No additional findings of hardware failure or hardware loosening are seen. Stable degenerative changes are seen. Mild levoconvex scoliotic curvature is noted. No focal AP alignment abnormality is seen. Soft tissues: No retroperitoneal masses or hematomas. Visualized aorta is normal in caliber. Atherosclerotic calcification is noted. Cholecystectomy clips are seen. IMPRESSION: Interval progression of the L2 compression deformity, now with 50% loss of height centrally. Stable postoperative and degenerative changes are seen elsewhere. Incidental note is made of: Cholecystectomy clips Dictated by: Maik Valdovinos M.D. on 11/03/2020 at 10:53 ECG Data Interpretation: Sinus rhythm rate 85 TX interval 160 QRS [address] changes or T-wave inversions MDM Narrative Medical decision making narrative: Patient initially presenting with increasing weakness and some diarrhea secondary to magnesium citrate. CT of her lumbar spine confirms worsening L2 fracture however no treatment is indicated. Nursing reports with ambulation trial she is weak and oxygen decreases to about 86% but then comes up quickly on its own with rest. She is evaluated again by Physical therapy who also note that she is the maximum assist and also notes that O2 drops to 82% with exertion. Patient continues to be COVID positive with now pneumonia on x-ray. She has leukocytosis. But overall does not appear septic she is not hypotensive and no fluid boluses indicated. Procalcitonin is also negative. Discussed case with Dr. hilton who is updated on patient's symptoms and test results. At this time likely COVID pneumonia causing increasing weakness. No need for antibiotics or CT for pulmonary embolism. Discharge Plan Departure Patient Disposition: Admitted As Inpatient Clinical Impression: COVID-19, Compression fracture of L2, Pneumonia Admit Date/Time: 11/03/20 16:17 Admit Provider: Cee Hilton
[2020-11-03 10:04] LABS: Add Manual Diff / Slide Review NO; Basophils Absolute Auto 100 /uL (0-100); Basophils Percent Auto 0.7 % (0-2); Eosinophils Absolute Auto 300 /uL (0-450); Eosinophils Percent Auto 2.4 % (2-4); Hematocrit 40.6 % (36-46); Hemoglobin 12.7 g/dL (12.0-16.0); Lymphocytes Absolute Auto 1200 /uL (1100-4500); Lymphocytes Percent Auto 8.9 % (25-40); Mean Corpuscular HGB Conc 31.2 % (30-36); Mean Corpuscular Hemoglobin 28.4 PG (26-34); Mean Corpuscular Volume 91.2 fL (80-100); Monocytes Absolute Auto 1500 /uL (0-900); Neutrophils Absolute Auto 10500 /uL (1500-7000); Platelet Count 270 X10^3/uL (150-400); Red Blood Cell Count 4.45 X10^6/uL (4.0-5.2); Red Cell Distribution Width 15.1 % (11.6-14.8); White Blood Cell Count 13.6 X10^3/uL (4.5-11.0)
[2020-11-03 10:13] LABS: Creatine Kinase 56 U/L (30-135)
[2020-11-03 10:15] LABS: Alanine Aminotransferase 16 IU/L (<35); Albumin 3.5 g/dL (3.5-5.0); Albumin Globulin Ratio 1.3 (1.0-2.8); Alkaline Phosphatase 105 U/L (38-126); Aspartate Aminotransferase 27 IU/L (14-36); BUN Creatinine Ratio 21.3 (6-22); Bilirubin Total 0.2 mg/dL (0.2-1.3); Blood Urea Nitrogen 29 mg/dL (7-17); Calcium 10.6 mg/dL (8.4-10.2); Carbon Dioxide 35 mmol/L (22-32); Chloride 100 mmol/L (98-107); Estimated Glomerular Filt Rate 38.4 mL/min (>60); Globulin 2.6 g/dL (1.7-4.1); Glucose 184 mg/dL (80-110); HEMOLYSIS < 15 (0-50); Lipase 42 U/L (23-300); Potassium 4.5 mmol/L (3.4-5.1); Sodium 138 mmol/L (137-145); Total Protein 6.1 g/dL (6.3-8.2)
[2020-11-03 10:26] LABS: Troponin I < 0.012 ng/mL (0.01-0.034)
--- NOTE | 2020-11-03 10:49 | PC.NURSE ---
large liquid brown bm
--- NOTE | 2020-11-03 11:08 | DI.CT.S_ITS ---
PROCEDURE: CT LUMBAR SPINE WO CON INDICATIONS: L2 fracture TECHNIQUE: Noncontrast 3 mm thick sections acquired from the T12 level to the sacrum. Sagittal and coronal reformats were constructed. For radiation dose reduction, the following was used: automated exposure control. COMPARISON: [facility], CT, CT LUMBAR SPINE WO CON, 10/24/2020, 4:54. [facility], CR, XR LUMBAR SPINE 2-3V, 10/21/2020, 11:50. [facility], CR, XR THORACIC SPINE 3V, 11/03/2020, 9:04. [facility], CR, XR LUMBAR SPINE 2-3V, 11/03/2020, 9:04. FINDINGS: Image quality: Excellent. Bones: This patient has a known L2 compression deformity. Since the prior CT dated 10/24/2020, this compression deformity as progressed, now with 50% loss of height centrally. Vacuum phenomenon can be seen within the vertebral body. No new fractures are seen. Postoperative changes are seen, with bilateral pedicle screws at the L4, L5, and S1 levels. The screws appear well placed. Vertical fixation rods are seen. Disc spacers are seen at L4-L5 and L5-S1. There is mild lucency seen adjacent to the left S1 screw, as on series 2 images 62 through 65. No additional findings of hardware failure or hardware loosening are seen. Stable degenerative changes are seen. Mild levoconvex scoliotic curvature is noted. No focal AP alignment abnormality is seen. Soft tissues: No retroperitoneal masses or hematomas. Visualized aorta is normal in caliber. Atherosclerotic calcification is noted. Cholecystectomy clips are seen. IMPRESSION: Interval progression of the L2 compression deformity, now with 50% loss of height centrally. Stable postoperative and degenerative changes are seen elsewhere. Incidental note is made of: Cholecystectomy clips Dictated by: Maik Valdovinos M.D. on 11/03/2020 at 10:53 Approved by: Maik Valdovinos M.D. on 11/03/2020 at 10:57
--- NOTE | 2020-11-03 14:02 | PT.IIE ---
Medical History (Last Reviewed 10/24/20 @ 15:44 by Donny Ambrocio DO) Leslie's disease Arthritis Asthma Chronic cough CKD (chronic kidney disease), stage III Diabetes Edema GERD (gastroesophageal reflux disease) Hiatal hernia HLD (hyperlipidemia) HTN (hypertension) Incontinence Interstitial lung disease Nasal polyp Neuropathy Pneumonia Polymyositis Sarcoidosis SCC (squamous cell carcinoma) Physical Therapy Inpatient Evaluation/Re-Eval M1 PT/OT-IP Prior Functional Status Start: 11/03/20 15:14 Freq: Status: Active Protocol: Document 11/03/20 14:02 AB (Rec: 11/03/20 16:01 AB [id number]) Medical Review Prior Functional Status Medical History Reviewed Yes Communication able to make needs known Mobility and Gait pt stated that she was modified independent with mobility at home using 4WW for ambulation but her friend Surinder assists her as needed Social History Household Members none Living Arrangements Mobile home Number of Floors (Floors) One Floor Number of Stairs To Enter/Railing? 3 stteps to enter without rails Home Environment High Toilet,Walk in Shower Home Equipment Front Wheel Walker,Four Wheel Walker,Raised Toilet Seat w/ Armrests,Hand Held Shower,Grab Bars Near Toilet Additional Social History Comment pt lives alone but her friend/ neighbor Surinder can stay and has been staying to assist her since last hospitalization M2 PT-IP Current Condition Start: 11/03/20 15:14 Freq: Status: Active Protocol: Document 11/03/20 14:02 AB (Rec: 11/03/20 16:01 [id number]) Physical Therapy Current Condition Current Condition Evaluation Date 11/03/20 Treatment Diagnosis weakness Onset Date 11/03/20 Precautions Lumbar Precautions Log Roll,No Twisting,Limit Bending,Lifting Restriction of 10 lbs Other Precautions falls; Covid precautions M3 PT-IP Subjective Start: 11/03/20 15:14 Freq: Status: Active Protocol: Document 11/03/20 14:02 AB (Rec: 11/03/20 16:01 AB [id number]) Subjective Physical Therapy Visit Type Type Initial Evaluation Visit Start Time 14:02 Visit Stop Time 14:45 Total Visit Minutes 43 Number of HEAD AND NECK SURGEON Visits 0 Physical Therapy Visit Comments Patient Comments agreed to do PT Therapy Pain Assessment Pain When Pain Assessed At Rest Pain Present Pain Present Pain Reported Location back Intensity 8 Scale Used Numeric (0 - 10) Pain Management Techniques Distraction,Re-positioning, Timing of Activity with Medications M4 PT-IP Mobility and Gait Start: 11/03/20 15:14 Freq: Status: Active Protocol: Document 11/03/20 14:02 AB (Rec: 11/03/20 16:01 AB [id number]) PT-Bed Mobility Assessment Rolling Type of Rolling Log Rolling Level of Assist Maximal Assistance Supine to Sit Supine to Sit Maximum Assistance Sit to Supine Sit to Supine Maximum Assistance PT-Transfer Assessment Sit to and From Stand Sit to and from Stand Moderate Assistance,1 Person Assistance,Use of Upper Extremities Equipment Transfer Assistive Device Gait Belt,Standard Walker Orthotic/Prosthetic Devices or Brace: No Transfer Ability Level of Assist Minimal Assistance,Moderate Assistance,1 Person Assistance ,Use of Upper Extremities Comments Mobility Comments pt in bed. O2 sat at room air 94%. reviewed back precautions and log roll bed mobility. completed bed mobility supine to sit log roll max A and max cues. c/o dizziness with initial sitting but dissipated. completed sit to stand mod A and ambulated ~ 10 ft using standard walker initially with only min A but midway requiring mod A with increase trunk flexion and knee bending . pt stated that she has to sit back down and sat on EOB. requested to go back to bed with c/o increase pain. completed sit to supine log roll max A and max cues. O2 sat checked and is at 82%. cued for deep breathing. O2 sat increased to ~ 90% after ~ 15 sec. positioned pt on the bed. call light and table placed within reach. informed the doctor regardig pt's mobility and O2 sat decrease. Gait Assessment Gait Gait Assistance Required: Minimum Assistance,Moderate Assistance Distance (Feet) 10 Able to Maintain Weight Bearing Status Yes During Gait Assistive Devices Assistive Device Gait Belt,Standard Walker Orthotic/Prosthetic Devices or Brace: No Gait Deviations General Gait Pattern Decreased Stride Length, Decreased Feet Clearance,Step- to Gait Factors Limiting Gait Function Factors Limiting Gait Function Decreased Activity Tolerance, Decreased Strength,Limited Range of Motion,Pain,Poor Balance,Poor Safety Awareness, Respiratory Distress PT-Balance Assessment Sitting Balance and Reactions Static Sitting Balance Ability Good Dynamic Sitting Balance Ability Fair Standing Balance and Reactions Static Standing Balance Ability Poor Dynamic Standing Balance Ability Poor Device Used FWW M5 PT-IP Objective Assessments Start: 11/03/20 15:14 Freq: Status: Active Protocol: Document 11/03/20 14:02 AB (Rec: 11/03/20 16:01 AB [id number]) Orientation Orientation/Cognition Level of Alertness Alert Orientation Name,Situation Language Function Ability No Deficits Noted Safety Awareness Decreased Safety Awareness Gross Range of Motion Lower Extremity ROM Assessment Within Functional Limits Strength Lower Extremity Strength Assessment Bilaterally Impaired Hip 3-/5 Knee 3+/5 Muscle Tone Muscle Tone WNL Yes M6 PT-IP Treatment Start: 11/03/20 15:14 Freq: Status: Active Protocol: Document 11/03/20 14:02 AB (Rec: 11/03/20 16:01 AB [id number]) Physical Therapy Treatment Education Education Provided Precautions,Safety M7 PT-IP Assessment and Plan Start: 11/03/20 15:14 Freq: Status: Active Protocol: Document 11/03/20 14:02 AB (Rec: 11/03/20 16:01 AB [id number]) PT Summary Assessment and Plan Potential Rehabilitation Potential Fair Status of Condition at Evaluation Evolving Summary Impairments Pain,ROM,Strength,Balance, Coordination,Sensation,Tone, Cognition,Bed Mobility, Transfers,Gait,Activity Tolerance Assessment Summary PT eval order received from ER . ER nurse stated that they ambulated pt already but pt is shaky and need PT eval. Pt requiring max A with bed mobility and min to mod with ambulation but only tolerated ~ 10 ft using standard walker with c/o increase back pain. pt also has decrease O2 sat after ambulation to 82% at room air. pt was admitted to the hospital October 24, 2020 due to back pain and has L2 compression fx and also has (+ ) COVID PNA. pt went home afterwards and now came back for weakness and c/o back pain . informed ER doctor regarding pt's mobility level, O2 sat and c/o pain. ER doctor stated that pt refused pain medication. At this time , pt is not safe to go home and will need SNF rehab to improve strength and mobility. Goals Bed Mobility Goal Standby Assistance Transfer Goal Standby Assistance,Front Wheeled Walker Gait Goal Standby Assistance,Front Wheel Walker Gait Distance 50 Other Goals improve ambulation using 4WW 100 ft SBA up/down 3 steps [employer] min A Days to Meet Goals 10 Frequency of Treatment Frequency Of Treatment Once a Day Treatment Plan Physical Therapy Treatment Plan Bed Mobility Training,Transfer Training,Gait Training, Therapeutic Exercise,Balance Retraining,Discharge Planning, Hot or Cold Pack,Neuromuscular Re-ed,Coordination Retraining Recommendations To Nursing Amount of Assist Needed 1 Person Assist Discharge Recommendations PT Discharge Recommendations SNF Rehab Transportation Needs at Discharge Wheelchair/Cabulance
--- NOTE | 2020-11-03 14:35 | DI.RAD.S_ITS ---
PROCEDURE: XR CHEST 1V INDICATIONS: sob TECHNIQUE: One view of the chest was acquired. COMPARISON: [facility], CR, XR CHEST 1V, 10/24/2020, 4:42. FINDINGS: Surgical changes and devices: None. Lungs and pleura: Mild airspace opacity within the left lung base. No pleural effusions or pneumothorax. Mediastinum: Mediastinal contours appear normal. Heart size is normal. Bones and chest wall: No suspicious bony lesions. Overlying soft tissues appear unremarkable. IMPRESSION: Left lower lobe pneumonia. Dictated by: Augustus Reed M.D. on 11/03/2020 at 14:47 Approved by: Augustus Reed M.D. on 11/03/2020 at 14:47
[2020-11-03 15:44] LABS: COVID19 - ADMIT (NP swab/PCR) POSITIVE (Negative)
--- NOTE | 2020-11-03 15:58 | CM.SWNOTE ---
OCCUPATIONAL THERAPY AIDE Note This OCCUPATIONAL THERAPY AIDE consulted to assess needs of this 70 yo female, recently admitted after GLF at home, w/subsequent non operable fxs and found to be COVID-19+. Patient had DC home w/neighbor on 10.25.20, returns w/weakness and supposed to admit to [facility] Thursday, according to Dr Hernandez. Spoke w/Dr Hernandez re: this referral. Patient will be admitted, PCR confirms COVID-19+. Patient has been seen by PT in the ED and de sats w/movement. Patient requiring assist to get OOB. Dr Hernandez wants patient admitted for lower lobe pneumonia w/DC likely to SNF Initial assessment and DC planning efforts will need to continue on the acute care floor by DCP team TIAN Funk
[2020-11-03 16:54] LABS: Creatine Kinase 58 U/L (30-135)
[2020-11-03 17:08] LABS: NT-proBNP (BNP-Adult 18+) 67 pg/mL (<125); Troponin I < 0.012 ng/mL (0.01-0.034)
[2020-11-03 17:13] LABS: Procalcitonin 0.09 ng/mL (<0.5)
--- NOTE | 2020-11-03 18:22 | PM.HP.1 ---
History of Present Illness History of Present Illness Chief complaint: Weakness Narrative: Patient is a 70-year-old female with a history of asthma, chronic cough, bronchiectasis, GERD, hypertension, interstitial lung disease who was admitted to the hospital 2 weeks ago with lumbar compression fracture and COVID pneumonia. The patient was discharged home on oral antibiotics. Since discharge she is working with her primary care provider for an admission to [facility] given her persistent pain. Patient is scheduled to go to [facility] on Thursday. She was at home and had significant pain. She was unable to ambulate because of her pain. She presented to the emergency room for evaluation. In the emergency room the patient was noted to be hypoxic with activity. She desaturated to 86% saturation. She is also remaining COVID positive. During her prior hospital stay 2 weeks ago she did receive 1 dose of Decadron and 1 dose of remdesivir. However she did not complete the full course of therapy. Patient is admitted to the hospital again for recurrent back pain, COVID pneumonia, and hypoxic respiratory failure. Patient History Medical History Glynn's disease Arthritis Asthma Chronic cough CKD (chronic kidney disease), stage III Diabetes Edema GERD (gastroesophageal reflux disease) Hiatal hernia HLD (hyperlipidemia) HTN (hypertension) Incontinence Interstitial lung disease Nasal polyp Neuropathy Pneumonia Polymyositis Sarcoidosis SCC (squamous cell carcinoma) Surgical History H/O wrist surgery History of arthroplasty of left knee History of arthroplasty of right knee Hx of bilateral cataract extraction Hx of cholecystectomy Hx of hernia repair Hx of tonsillectomy Status post correction of deviated nasal septum Family & Social History Social History: household members none Prior Living Arrangements Mobile home Safety & Behavioral: Feels Safe in Current Yes Environment Been Physically Hurt or No Threatened By a Person Suicidal Ideation Description None Suicide Plan Description No Plan Tobacco & Substance use: Smoking Status Never smoker alcohol intake current alcohol intake frequency holiday/special occasion Substance Use Type does not use Meds Home Medications and Allergies Home Medications Medication Instructions Recorded Confirmed Type acyclovir 400 mg tablet 400 mg PO BID 06/27/19 11/03/20 History gabapentin 300 mg capsule 600 mg PO TID 06/27/19 11/03/20 History insulin glargine 100 unit/mL (3 15 unit SUBCUT QAM 06/27/19 11/03/20 History mL) subcutaneous pen (Basaglar KwikPen U-100 Insulin) losartan 50 mg tablet 25 mg PO DAILY 06/27/19 11/03/20 History metoclopramide HCl 10 mg tablet 10 mg PO TID 06/27/19 11/03/20 History montelukast 10 mg tablet 10 mg PO BEDTIME 06/27/19 11/03/20 History mycophenolate mofetil 500 mg 750 mg PO BID 06/27/19 11/03/20 History tablet (CellCept) potassium chloride 20 mEq 20 meq PO DAILY 06/27/19 11/03/20 History tablet,extended release prednisone 5 mg tablet 4 mg PO DAILY 06/27/19 11/03/20 History rosuvastatin 10 mg tablet (Crestor) 10 mg PO DAILY 06/27/19 11/03/20 History docusate sodium 100 mg capsule 100 mg PO BID #40 cap 07/12/19 11/03/20 Rx (DOK) cyclobenzaprine 10 mg tablet 10 mg PO TID PRN #10 tab 10/21/20 11/03/20 Rx acetaminophen 325 mg tablet 500 mg PO Q6HR PRN 10/24/20 11/03/20 History calcium carb-ergocalciferol (vit 1 tab PO DAILY 10/24/20 11/03/20 History D2) 600 mg calcium-200 unit tablet cetirizine 10 mg tablet 10 mg PO DAILY 10/24/20 11/03/20 History folic acid 400 mcg tablet 0.4 mg PO DAILY 10/24/20 11/03/20 History lactobacillus comb no.10 20 20,000 mmu cells PO DAILY 10/24/20 11/03/20 History billion cell capsule (Probiotic) cefdinir 300 mg capsule 300 mg PO BID #20 cap 10/25/20 11/03/20 Rx hydromorphone 2 mg tablet 2 mg PO Q6H PRN #30 tab 10/25/20 11/03/20 Rx lidocaine 4 % topical patch 1 patch TOPICAL DAILY #15 ea 10/25/20 11/03/20 Rx Allergies Allergy/AdvReac Type Severity Reaction Status Date / Time Penicillins Allergy Severe Swelling Verified 07/08/19 11:03 of Lip/Tongue/Throat amoxicillin Allergy Intermediate Hives Verified 07/08/19 11:03 oxycodone Allergy Intermediate Hives Verified 07/08/19 11:03 Sulfa (Sulfonamide Allergy Intermediate Hives Verified 07/08/19 11:03 Antibiotics) Review of Systems Review of Systems Narrative: Patient denies any chest pain, she has shortness of breath which is worse than her baseline, she has a chronic cough, no fever chills, no nausea vomiting, she did take some Mag citrate for constipation now has diarrhea. No hematuria dysuria or pyuria. She has significant pain as noted above. No incontinence of stool. Further review of systems is negative Exam Vital Signs (past 8 hours): - 11/03/20 10:30 11/03/20 11:00 11/03/20 11:30 Temperature Pulse Rate 82 77 76 Respiratory Rate 13 14 Blood Pressure Pulse Oximetry 94 94 92 11/03/20 11:36 11/03/20 11:37 11/03/20 12:00 Temperature Pulse Rate 77 75 Respiratory Rate 17 22 Blood Pressure 119/56 L 119/56 L Pulse Oximetry 92 92 11/03/20 12:32 11/03/20 13:00 11/03/20 13:30 Temperature Pulse Rate 88 75 74 Respiratory Rate 19 12 15 Blood Pressure 129/89 126/69 111/68 Pulse Oximetry 77 L 93 93 11/03/20 14:00 11/03/20 14:30 11/03/20 15:00 Temperature Pulse Rate 77 80 77 Respiratory Rate 18 18 15 Blood Pressure 117/83 132/64 124/66 Pulse Oximetry 86 L 96 93 11/03/20 15:30 11/03/20 15:46 11/03/20 16:00 Temperature Pulse Rate 82 85 76 Respiratory Rate 17 17 16 Blood Pressure 132/63 156/72 H 144/63 H Pulse Oximetry 92 91 95 11/03/20 16:30 11/03/20 17:00 11/03/20 18:00 Temperature 98.2 F Pulse Rate 75 74 76 Respiratory Rate 16 14 18 Blood Pressure 150/70 H 143/76 H 149/81 H Pulse Oximetry 93 94 95 Oxygen Delivery Method Room Air Narrative Exam Narrative: Ill-appearing female lying in bed uncomfortable [facility] Other: HEENT: Normocephalic atraumatic, extraocular muscles are intact, oropharynx clear, neck is supple Lungs: Decreased breath sounds with bibasilar crackles noted left greater than right Cardiac exam: Regular rate and rhythm normal S1-S2 with a 2/6 systolic ejection murmur Abdomen: Nontender nondistended without appreciable hepatosplenomegaly Extremities: No edema Skin exam: Beneath the pannus there is evidence of yeast, this is nonpainful odorous Neuro exam: Nonfocal Objective Labs Result Diagrams: 11/03/20 09:59 11/03/20 09:59 Labs: Laboratory Results - last 24 hr 11/03/20 11/03/20 11/03/20 09:59 09:59 09:59 WBC 13.6 H RBC 4.45 Hgb 12.7 Hct 40.6 MCV 91.2 MCH 28.4 MCHC 31.2 RDW 15.1 H Plt Count 270 Neut % (Auto) 77.0 H Lymph % (Auto) 8.9 L [place] % (Auto) 11.0 Eos % (Auto) 2.4 Baso % (Auto) 0.7 Neut # (Auto) 66267 H Lymph # (Auto) 1200 [place] # (Auto) 1500 H Eos # (Auto) 300 Baso # (Auto) 100 Sodium 138 Potassium 4.5 Chloride 100 Carbon Dioxide 35 H BUN 29 H Creatinine 1.36 H Estimated GFR 38.4 L BUN/Creatinine Ratio 21.3 Glucose 184 H Lactate Calcium 10.6 H Total Bilirubin 0.2 AST 27 ALT 16 Alkaline Phosphatase 105 Total Creatine Kinase 56 CK-MB (CK-2) TNP CK-MB (CK-2) Rel Index TNP Troponin I < 0.012 NT-Pro-B Natriuret Pep Total Protein 6.1 L Albumin 3.5 Globulin 2.6 Albumin/Globulin Ratio 1.3 Lipase 42 Procalcitonin SARS-CoV-2 (PCR) 11/03/20 11/03/20 11/03/20 13:55 16:20 16:20 WBC RBC Hgb Hct MCV MCH MCHC RDW Plt Count Neut % (Auto) Lymph % (Auto) [place] % (Auto) Eos % (Auto) Baso % (Auto) Neut # (Auto) Lymph # (Auto) [place] # (Auto) Eos # (Auto) Baso # (Auto) Sodium Potassium Chloride Carbon Dioxide BUN Creatinine Estimated GFR BUN/Creatinine Ratio Glucose Lactate 1.0 Calcium Total Bilirubin AST ALT Alkaline Phosphatase Total Creatine Kinase CK-MB (CK-2) CK-MB (CK-2) Rel Index Troponin I NT-Pro-B Natriuret Pep Total Protein Albumin Globulin Albumin/Globulin Ratio Lipase Procalcitonin 0.09 SARS-CoV-2 (PCR) Positive H 11/03/20 16:20 WBC RBC Hgb Hct MCV MCH MCHC RDW Plt Count Neut % (Auto) Lymph % (Auto) [place] % (Auto) Eos % (Auto) Baso % (Auto) Neut # (Auto) Lymph # (Auto) [place] # (Auto) Eos # (Auto) Baso # (Auto) Sodium Potassium Chloride Carbon Dioxide BUN Creatinine Estimated GFR BUN/Creatinine Ratio Glucose Lactate Calcium Total Bilirubin AST ALT Alkaline Phosphatase Total Creatine Kinase 58 CK-MB (CK-2) TNP CK-MB (CK-2) Rel Index TNP Troponin I < 0.012 NT-Pro-B Natriuret Pep 67 Total Protein Albumin Globulin Albumin/Globulin Ratio Lipase Procalcitonin SARS-CoV-2 (PCR) Assessment & Plan Assessment & Plan narrative: 70-year-old female admitted to the hospital for acute hypoxic respiratory failure -patient with every sent diagnosis of COVID pneumonia -she completed 1 day of remdesivir and Decadron -patient remains hypoxic with activity which is not her baseline she desaturates to 86% on room air -patient on low-dose prednisone -will resume remdesivir and Decadron, holding prednisone -will continue until her rest and exercise oxygen saturation has improved -doubt bacterial pneumonia, will defer IV antibiotics Lumbar compression fracture -PT OT consultation -continue oral Hydromorphone -Tylenol 975 t.i.d. as needed -continue Lidoderm patch -continue cyclobenzaprine Hypertension -continue losartan Acute kidney injury -likely related to dehydration from her diarrhea -will start IV hydration -will recheck labs in the morning -will avoid NSAIDs at this time Interstitial lung disease -chronic Sarcoidosis -chronic Hyperlipidemia -continue statin Patient reports she is DNR DNI will note that her record accordingly Patient reports her neighbor Michael Belcher is her surrogate decision maker, will note that in her record accordingly Will consult PT OT, and discharge planning, will continue to work towards placement at [facility]. Quality VTE Deep Vein Thrombosis/Pulmonary Embolism Present on Admission: No
[2020-11-03] MEDS: REMDESIVIR 200 MG in SODIUM CHLORIDE 0.9% 210 ML 250 ML IV (19:29)
[2020-11-03] MEDS: ATORVASTATIN 20 MG TABLET 10 MG PO (21:03)
[2020-11-03] MEDS: ACYCLOVIR 400 MG TABLET PO (21:03)
[2020-11-03] MEDS: MYCOPHENOLATE MOFETIL 500 MG TABLET 750 MG PO (21:04)
[2020-11-03] MEDS: GABAPENTIN 600 MG TABLET PO (21:04)
[2020-11-03] MEDS: HYDROCODONE/ACET 5/325 TABLET 2 TAB PO (21:19)
--- NOTE | 2020-11-03 21:30 | PC.NURSE ---
Admit note: Patient arrived via stretcher, transferred with PAID SEARCH MANAGER and this RN, pivot turn to inpatient bed. AxOx3, can make needs known. 2 GLF recently. Progression of L2 compression fx with most recent fall. Denies chest pain. C/o SOB with exertion that is baseline with a cough that is also baseline that can be productive with green sputum. Wheezing and fine crackles to posterior bilateral bases. Saturating WNL on RA. Pt c/o diarrhea as a result of taking mag citrate yesterday at her doctors order, has not had any this shift. Hx of stress incontinence, wearing brief. Fungal rash to groin and pannus, blanching erythema to gluteal cleft, notified provider, nystatin powder ordered. High fall risk d/t recent falls and weakness with ambulation. Uses walker at baseline. Compression stockings and SCDs applied. Bed alarm on, call light in reach, uses appropriately. Per Pharmacy, did not start lactated ringers while infusing Remdesivir. Will start maintenance fluids when Remdesivir is infused.
[2020-11-03] MEDS: LACTATED RINGERS 1,000 ML 100 ML IV (21:39)
[2020-11-04] VITALS (8 sets, daily range): BP systolic 134–168; BP diastolic 68–85; PULSE 78–95; RESP 16–20; TEMP 36.4–36.7; O2SAT 90–98
--- NOTE | 2020-11-04 02:01 | PC.NURSE ---
Patient seen and assessed earlier. Is alert and oriented. Breath sounds with scattered crackles. Endorses SOB both at rest and with exertion but RA sat is 94%; on continuous oximetry. Also reports intermittent moist sounding cough with occasional expectoration of green sputum. HRR. BP trending high and was 155/79 at time of assessment. Denied nausea. BT present and is passing flatus. Denied dysuria, frequency or urgency with urination. Needing assistance to reposition in bed so helped to turn onto left side and pillow placed for comfort. Redness noted in abdominal folds and groin as well as some blanchable redness on coccyx. Is wearing bilateral DEBBIE stockings as well as calf SCD's. Did complain of 5/10 back pain but stated it was improved and tolerable at the time. Fall risk score is high and bed alarm is activated. Is on droplet/aersolized precautions as is covid positive.
[2020-11-04] MEDS: LACTATED RINGERS 1,000 ML 100 ML IV (05:24)
[2020-11-04] MEDS: HYDROCODONE/ACET 5/325 TABLET 2 TAB PO ×3 (05:25→18:29)
[2020-11-04] MEDS: LIDOCAINE PATCH 1 EACH ADH..PATCH TOP (08:31)
[2020-11-04] MEDS: ENOXAPARIN 40 MG/0.4 ML SYRINGE SUBCUT (08:31)
[2020-11-04] MEDS: MONTELUKAST 10 MG TABLET PO (08:31)
[2020-11-04] MEDS: GABAPENTIN 600 MG TABLET PO ×3 (08:31→20:33)
[2020-11-04] MEDS: LOSARTAN 25 MG TABLET PO (08:31)
[2020-11-04] MEDS: DEXAMETHASONE 10 MG/ML VIAL 6 MG IV (08:32)
[2020-11-04] MEDS: ACYCLOVIR 400 MG TABLET PO ×2 (08:32→20:33)
[2020-11-04] MEDS: MYCOPHENOLATE MOFETIL 500 MG TABLET 750 MG PO ×2 (08:34→22:47)
[2020-11-04] MEDS: NYSTATIN POWDER 15GM 1 APPLIC TOP (13:41)
--- NOTE | 2020-11-04 15:42 | P.PN_ITS ---
Subjective Subjective Interval history: The patient is a 70-year-old female who presented to the emergency room for severe back pain related to a lumbar compression fracture. The patient has known COVID pneumonia. When they attempted to ambulate the patient she was found to be markedly hypoxic with a room air saturation of 86%. Since admission she continues to have significant back pain and reports difficulty ambulating. In addition with minimal activity the patient again desaturates. While at rest in the bed without oxygen her O2 sat drops to 88- 89%. Exam Vital Signs (past 8 hours): - 11/04/20 08:04 11/04/20 08:31 11/04/20 11:00 Temperature 98.1 F 97.7 F Pulse Rate 83 83 Respiratory Rate 18 16 Blood Pressure 157/85 H 168/73 H 149/74 H Pulse Oximetry 93 95 Oxygen Delivery Method Room Air Oxygen Flow Rate 0 Narrative Exam Narrative: Ill-appearing female lying in bed uncomfortable Chest Other: Lungs: Diffuse crackles bilaterally, no rhonchi, no wheezing Cardio Other: Cardiac exam: Regular rate and rhythm normal S1-S2 GI Other: At abdomen: Soft nontender nondistended Extrem Other: Extremities: No edema Objective Labs Result Diagrams: 11/03/20 09:59 11/03/20 09:59 Labs: Laboratory Results - last 24 hr 11/03/20 11/03/20 11/03/20 13:55 16:20 16:20 Lactate 1.0 Total Creatine Kinase CK-MB (CK-2) CK-MB (CK-2) Rel Index Troponin I NT-Pro-B Natriuret Pep Procalcitonin 0.09 SARS-CoV-2 (PCR) Positive H 11/03/20 16:20 Lactate Total Creatine Kinase 58 CK-MB (CK-2) TNP CK-MB (CK-2) Rel Index TNP Troponin I < 0.012 NT-Pro-B Natriuret Pep 67 Procalcitonin SARS-CoV-2 (PCR) [facility] Medical History Morehouse's disease Arthritis Asthma Chronic cough CKD (chronic kidney disease), stage III Diabetes Edema GERD (gastroesophageal reflux disease) Hiatal hernia HLD (hyperlipidemia) HTN (hypertension) Incontinence Interstitial lung disease Nasal polyp Neuropathy Pneumonia Polymyositis Sarcoidosis SCC (squamous cell carcinoma) Surgical History H/O wrist surgery History of arthroplasty of left knee History of arthroplasty of right knee Hx of bilateral cataract extraction Hx of cholecystectomy Hx of hernia repair Hx of tonsillectomy Status post correction of deviated nasal septum Social History household members: none Smoking Status: Never smoker alcohol intake: current Assessment & Plan Assessment & Plan narrative: 70-year-old female admitted to the hospital for acute hypoxic respiratory failure -patient with every sent diagnosis of COVID pneumonia -she completed 1 day of remdesivir and Decadron -patient remains hypoxic with activity which is not her baseline she desaturates to 86% on room air -patient on low-dose prednisone -will resume remdesivir and Decadron, holding prednisone -will continue until her rest and exercise oxygen saturation has improved -doubt bacterial pneumonia, will defer IV antibiotics -patient remains hypoxic at rest and with activity, she will continue with a full 5 day course of both remdesivir and Decadron, -prednisone on hold Lumbar compression fracture -PT OT consultation -continue oral Hydromorphone -Tylenol 975 t.i.d. as needed -continue Lidoderm patch -continue cyclobenzaprine -patient was under the impression that she had a bed available at [facility] on Thursday, unfortunately they do not take COVID patients at this time -patient lives alone and will likely need snf at discharge. Dis charge is dependent upon her are no longer being hypoxic from COVID pneumonia at which point she is deemed appropriate for discharge for ongoing rehabilitation Hypertension -continue losartan Acute kidney injury -likely related to dehydration from her diarrhea -will start IV hydration -will recheck labs in the morning -will avoid NSAIDs at this time Interstitial lung disease -chronic Sarcoidosis -chronic Hyperlipidemia -continue statin Patient reports she is DNR DNI will note that her record accordingly Patient reports her neighbor Michael Belcher is her surrogate decision maker, will note that in her record accordingly Will defer PT OT at this time given her COVID pneumonia and ongoing hypoxemia, and discharge planning, will continue to work towards placement as appropriate. Quality VTE Deep Vein Thrombosis/Pulmonary Embolism Present on Admission: No
--- NOTE | 2020-11-04 15:56 | CM.DANOTE ---
DCP/Assessment: Reviewed chart. Patient is a 70yr old female admitted to [facility] with SOB. PCP is Rufina Stockton. Primary payor is 1) Medicare 2)[facility]. Patient currently COVID positive and per RN resting comfortably in bed. Provider reports patient currently requiring 02 and d/c not expected today. Notes report patient has pre-arranged plans to go to [facility] on Thursday11-05-20. DIVING COACH called [facility], spoke with Berenice whom knew nothing about it? Patient reports to staff that this was set up through PCP office. Dr. Hilton reports this afternoon that once SOB resolves patient most likely will be able to d/c home. team to follow up closely tomorrow. P: Pending. TIAN Hubbard Discharge Planning/Care Management Discharge Assessment Start: 11/04/20 15:23 Freq: Status: Active Protocol: Document 11/04/20 15:52 KJS (Rec: 11/04/20 15:56 KJS [id number]) Discharge Planning Assessment Assigned Side Panel Hanger TIAN Hubbard Contact Information Surinder Belcher (friend) ph# Advance Directives? No History Provided By Medical Record Prior Living Arrangements Mobile home Household Members none Independent with ADL's Pending Is patient alert and oriented? Yes Caregiver for Another No Comment Pending needs, patient currently COVID positive. Per H&P patient had appointment to go to [facility] on 11-05-20. DIVING COACH spoke with [facility] and they report that they have nobody scheduled to come in by her name. Plus [facility] does not take COVID positive paient's? This is not a new diagnosis. Comment Pending Discharge Plan Home Referrals Initiated Other Additional Comment Awaiting recommendations from provider. Per Dr. Hilton patient ambulating much better today however still requires 02. If patient plan is home with home health Yes : Has signed face to face form been completed? Review Status In Process Next Review Type Continued Stay Review
[2020-11-04 16:21] LABS: BUN Creatinine Ratio 24.4 (6-22); Blood Urea Nitrogen 22 mg/dL (7-17); Calcium 9.8 mg/dL (8.4-10.2); Carbon Dioxide 33 mmol/L (22-32); Chloride 101 mmol/L (98-107); Estimated Glomerular Filt Rate > 60.0 mL/min (>60); Glucose 234 mg/dL (80-110); HEMOLYSIS < 15 (0-50); Potassium 4.6 mmol/L (3.4-5.1); Sodium 136 mmol/L (137-145)
--- NOTE | 2020-11-04 16:35 | PC.NURSE ---
Addendum entered by Benita Zapata R.N. 11/04/20 21:25: Pt had relatively uneventful evening. Remains in Isolation. HL intact/patent. BVR=624, 2u coverage given. Condition remains essentially unchanged. Call light w/in reach, bed alarm on for pt safety. Continue w/plan of care. Original Note: Pt watching TV, denies any issues @ this time. Lungs clear slight shallow at bases. SpO2 95% RA HL LFA intact/patent. Call light w/in reach, pt calls appropriately for needs.
[2020-11-04] MEDS: REMDESIVIR 100 MG in SODIUM CHLORIDE 0.9% 230 ML 250 ML IV (18:17)
[2020-11-04] MEDS: INSULIN LISPRO 100 UNIT/ML 3ML VIAL SUBCUT (18:21)
[2020-11-04] MEDS: ATORVASTATIN 20 MG TABLET 10 MG PO (20:33)
[2020-11-05] VITALS (11 sets, daily range): BP systolic 138–178; BP diastolic 68–86; PULSE 70–86; RESP 16–18; TEMP 36.6–37; O2SAT 94–98
[2020-11-05] MEDS: HYDROCODONE/ACET 5/325 TABLET 2 TAB PO ×4 (00:58→19:32)
[2020-11-05 05:47] LABS: Add Manual Diff / Slide Review NO; Basophils Absolute Auto 0 /uL (0-100); Basophils Percent Auto 0.5 % (0-2); Eosinophils Absolute Auto 0 /uL (0-450); Eosinophils Percent Auto 0.3 % (2-4); Hematocrit 35.9 % (36-46); Hemoglobin 11.3 g/dL (12.0-16.0); Lymphocytes Absolute Auto 1400 /uL (1100-4500); Lymphocytes Percent Auto 16.9 % (25-40); Mean Corpuscular HGB Conc 31.5 % (30-36); Mean Corpuscular Hemoglobin 28.6 PG (26-34); Mean Corpuscular Volume 90.8 fL (80-100); Monocytes Absolute Auto 800 /uL (0-900); Monocytes Percent Auto 9.8 % (3-14); Neutrophils Absolute Auto 5900 /uL (1500-7000); Neutrophils Percent Auto 72.5 % (50-75); Platelet Count 323 X10^3/uL (150-400); Red Blood Cell Count 3.95 X10^6/uL (4.0-5.2); Red Cell Distribution Width 14.4 % (11.6-14.8); White Blood Cell Count 8.1 X10^3/uL (4.5-11.0)
[2020-11-05 06:09] LABS: BUN Creatinine Ratio 25.3 (6-22); Blood Urea Nitrogen 21 mg/dL (7-17); Calcium 9.2 mg/dL (8.4-10.2); Carbon Dioxide 32 mmol/L (22-32); Chloride 102 mmol/L (98-107); Estimated Glomerular Filt Rate > 60.0 mL/min (>60); Glucose 137 mg/dL (80-110); HEMOLYSIS < 15 (0-50); Potassium 3.9 mmol/L (3.4-5.1); Sodium 135 mmol/L (137-145)
[2020-11-05] MEDS: ENOXAPARIN 40 MG/0.4 ML SYRINGE SUBCUT (08:38)
[2020-11-05] MEDS: DEXAMETHASONE 10 MG/ML VIAL 6 MG IV (08:38)
[2020-11-05] MEDS: ACYCLOVIR 400 MG TABLET PO ×2 (08:38→20:46)
[2020-11-05] MEDS: LOSARTAN 25 MG TABLET PO (08:39)
[2020-11-05] MEDS: GABAPENTIN 600 MG TABLET PO ×3 (08:39→20:46)
[2020-11-05] MEDS: MONTELUKAST 10 MG TABLET PO (08:39)
[2020-11-05] MEDS: LIDOCAINE PATCH 1 EACH ADH..PATCH TOP (08:40)
--- NOTE | 2020-11-05 08:59 | OT.IP.EVAL ---
Current Diagnoses COVID-19 (11/03/20) Past Medical History (Last Reviewed 10/24/20 @ 15:44 by Donny Ambrocio DO) Jarales's disease Arthritis Asthma Chronic cough CKD (chronic kidney disease), stage III Diabetes Edema GERD (gastroesophageal reflux disease) H/O wrist surgery Hiatal hernia History of arthroplasty of left knee History of arthroplasty of right knee HLD (hyperlipidemia) HTN (hypertension) Hx of bilateral cataract extraction Hx of cholecystectomy Hx of hernia repair Hx of tonsillectomy Incontinence Interstitial lung disease Nasal polyp Neuropathy Pneumonia Polymyositis Sarcoidosis SCC (squamous cell carcinoma) Status post correction of deviated nasal septum Surgical History (Last Reviewed 10/24/20 @ 15:44 by Donny Ambrocio DO) H/O wrist surgery History of arthroplasty of left knee History of arthroplasty of right knee Hx of bilateral cataract extraction Hx of cholecystectomy Hx of hernia repair Hx of tonsillectomy Status post correction of deviated nasal septum Occupational Therapy Inpatient Evaluation/Re-Eval M1 PT/OT-IP Prior Functional Status Start: 11/03/20 15:14 Freq: Status: Active Protocol: Document 11/05/20 10:40 CGR (Rec: 11/05/20 10:52 CGR [id number]) Medical Review Prior Functional Status Medical History Reviewed Yes Communication able to make needs known Mobility and Gait pt stated that she was modified independent with mobility at home using 4WW for ambulation but her friend Surinder assists her as needed Activities of Daily Living and IADL's Pt states that recently, Surinder has been assisting with bed mobility, toileting, bathing, and dressing. Prior Functional Level (Other details) Surinder is pt's neighbor and prior co-worker. He has been assisting for 20+ years. Surinder is 82 per pt. Social History Household Members none Living Arrangements Mobile home Number of Floors (Floors) One Floor Number of Stairs To Enter/Railing? 3 stteps to enter without rails Home Environment High Toilet,Walk in Shower Home Equipment Front Wheel Walker,Four Wheel Walker,Raised Toilet Seat w/ Armrests,Hand Held Shower, Hospital Bed,Grab Bars Near Toilet Additional Social History Comment Pt states she has a hospital bed M1 PT/OT-IP Prior Functional Status Start: 11/05/20 10:39 Freq: NEEDED Status: Active Protocol: Document 11/05/20 10:40 CGR (Rec: 11/05/20 10:52 R [id number]) Medical Review Prior Functional Status Medical History Reviewed Yes Communication able to make needs known Mobility and Gait pt stated that she was modified independent with mobility at home using 4WW for ambulation but her friend Surinder assists her as needed Activities of Daily Living and IADL's Pt states that recently, Surinder has been assisting with bed mobility, toileting, bathing, and dressing. Prior Functional Level (Other details) Surinder is pt's neighbor and prior co-worker. He has been assisting for 20+ years. Surinder is 82 per pt. Social History Household Members none Living Arrangements Mobile home Number of Floors (Floors) One Floor Number of Stairs To Enter/Railing? 3 stteps to enter without rails Home Environment High Toilet,Walk in Shower Home Equipment Front Wheel Walker,Four Wheel Walker,Raised Toilet Seat w/ Armrests,Hand Held Shower, Hospital Bed,Grab Bars Near Toilet Additional Social History Comment Pt states she has a hospital bed M2 OT-IP Current Condition Start: 11/05/20 10:39 Freq: Status: Active Protocol: Document 11/05/20 10:40 CGR (Rec: 11/05/20 10:52 CGR [id number]) Occupational Therapy Current Condition Current Condition Evaluation Date 11/05/20 Treatment Diagnosis L2 compression fx, back pain, covid +, recent admit with same complaints Diagnosis Onset Date 11/03/20 Post Operative Precautions Lumbar Precautions Log Roll,No Twisting,Limit Bending,Lifting Restriction of 10 lbs,Gait Belt above Incisional Area M3 OT- IP Subjective and Pain Start: 11/05/20 10:39 Freq: Status: Active Protocol: Document 11/05/20 10:40 CGR (Rec: 11/05/20 10:52 CGR [id number]) OT- Subjective Occupational Therapy Visit Type Type Initial Evaluation Visit Start Time 08:30 Visit Stop Time 08:59 Total Visit Minutes 29 Notes Pt is requesting to get up to the toilet Occupational Therapy Visit Comments Patient Comments I want to go to a nursing facility because I need more help than what Surinder can do. OT Pain Assessment Pain When Pain Assessed During Mobility Pain Present Pain Present Pain Reported Location back Intensity 8 Scale Used Numeric (0 - 10) Management Techniques Distraction,Modification of Treatment,Re-positioning M4 OT- IP ADL's Start: 11/05/20 10:39 Freq: Status: Active Protocol: Document 11/05/20 10:40 CGR (Rec: 11/05/20 10:52 CGR [id number]) OT [id number] General Evaluation Self-Feeding Ability Independent Comments OT Self-Feeding Comments Pt eating breakfast when OT entered OT ADL-Grooming Comments OT Grooming Comments not performed OT ADL-Oral Care Comments Oral Care Comments not performed OT ADL-Dressing General Eval Lower Body Dressing Ability Total Assistance Areas Needing Assistance Socks OT ADL-Toileting General Evaluation Toileting Ability Moderate Assistance Areas Needing Assistance Manage Clothing Devices Toileting Assistive Devices Grab Bars Comments OT Toileting Comments Pt urinated seated on toielt. She needed assist with pulling down and up briefs but was able to perform her pericare. OT ADL-Bathing Comments OT Bathing Comments not performed M5 OT- IP IADL's Start: 11/05/20 10:39 Freq: Status: Active Protocol: Document 11/05/20 10:40 CGR (Rec: 11/05/20 10:52 CGR [id number]) OT-Instrumental Activities of Daily Living Deficits IADL Deficits Identified Deficits Home Safety Awareness Awareness of Need for Assistance at Home Good Awareness Ability to Problem Solve Emergency Able to Problem Solve Situations Medication Management Medication Management No Deficits Identified Money Management Money Management No Deficits Identified Meal Preparation Meal Preparation Caregiver Provides Assist Snuff Grinder Snuff Grinder Caregiver Provides Assist Driving Driving Concerns Identified Regarding Safety M6 OT- IP Functional Cognition Start: 11/05/20 10:39 Freq: Status: Active Protocol: Document 11/05/20 10:40 CGR (Rec: 11/05/20 10:52 CGR [id number]) Cognitive Factors Limiting Selfcare Function Cognitive Ability Level of Alertness Alert Patient Orientation Name,Age,Birthday,Month,Date, Year,Day of Week,Place, Situation Attention Span Ability Capable of Focused Attention, Capable of Sustained Attention Ability to Follow Commands Able to Follow Multi-Step Commands OT- Vision and Hearing OT- Hearing Assessment OT- Hearing Assessment WFL OT- Vision Assessment Visual Acuity Glasses All The Time Visual Attentiveness WFL Occular Pursuits WFL Visual Convergence WFL Vision Assessment Comments Pt wears trifocals M7 OT- IP Mobility and Balance Start: 11/05/20 10:39 Freq: Status: Active Protocol: Document 11/05/20 10:40 CGR (Rec: 11/05/20 10:52 CGR [id number]) OT- Bed Mobility Assessment Rolling Type of Rolling Log Rolling,Roll to Right Level of Assistance Contact Guard Assistance,1 Person Assistance,Head of Bed Elevated,Bedrails Supine to Sit Supine to Sit Assist Contact Guard Assistance,1 Person Assistance,Head of Bed Elevated,Bedrails Scooting Scooting to Edge of Bed Contact Guard Assistance,1 Person Assistance,Head of Bed Elevated,Bedrails OT-Transfer Assessment Sit to and From Stand Sit to and from Stand Contact Guard Assistance Transfers Transfer Ability Contact Guard Assistance Technique Transfer Destination Bed,Chair Transfer Technique Stand Step Pivot Devices Transfer Assistive Devices Gait Belt,Front Wheeled Walker Comments Mobility Comments CGA with mobility but increased pain with all mobility OT- Balance Assessment Sitting Balance and Reactions Static Sitting Balance Ability Good M8 OT- IP Objective Assessments Start: 11/05/20 10:39 Freq: Status: Active Protocol: Document 11/05/20 10:40 CGR (Rec: 11/05/20 10:52 CGR [id number]) OT Gross Range of Motion Upper Extremity Range of Motion Assessment Within Functional Limits OT Strength Comments Strength Comments Unable to tolerate testing d/t back pain OT- Coordination Assessment Upper Extremity Finger to Nose Test Within Functional Limits Finger Tapping Test Within Functional Limits OT-Muscle Tone Assessment Muscle Tone WNL Yes OT Sensation Assessment Edema Edema Absent M9 OT- IP Assessment and Plan Start: 11/05/20 10:39 Freq: Status: Active Protocol: Document 11/05/20 10:40 CGR (Rec: 11/05/20 10:52 CGR [id number]) OT Summary Assessment and Plan Potential Rehabilitation Potential Excellent Analytic Complexity at Evaluation Moderate Summary OT Impairments Pain,Strength,Balance, Functional Mobility,Grooming, Dressing,Toileting,Bathing, Toilet Transfers,Shower Transfers,Activity Tolerance Progress Towards Goals Slow Progress due to Pain Assessment Summary Pt presents as a moderate complexity evaluation s/p admit for back pain with L2 compression fx and covid positive. Pt failed home management and returned to the hospital. Given need of assist for toileting and simple ADLs pt would benefit from SNF upon discharge. Pt has assist at home but feels like she needs more than what her friend Surinder can provide. Goals Grooming Goal Independent Dressing Goal Independent Toileting Goal Independent Bathing Goal Independent Toilet Transfer Goal Independent Shower Transfer Goal Independent Days to Meet Goals 30 Frequency of Treatment Frequency Of Treatment Once a Day Treatment Plan OT Treatment Plan ADL Training,Functional Mobility,Patient/Family Education,Discharge Planning Other Treatment Recommendations and Next ADLs standing, activity Treatment Focus tolerance Discharge Recommendations OT Discharge Recommendations SNF Rehab Transportation Needs at Discharge Private Vehicle,Wheelchair/ Cabulance
[2020-11-05] MEDS: MYCOPHENOLATE MOFETIL 500 MG TABLET 750 MG PO ×2 (09:01→20:47)
[2020-11-05] MEDS: INSULIN LISPRO 100 UNIT/ML 3ML VIAL SUBCUT ×3 (09:02→16:24)
--- NOTE | 2020-11-05 09:39 | DIET.PN ---
Dietary Progress Note RD Note: Obese covid positive patient with poor POs secondary to pain and ongoing covid sx. Kitchen sending up ONS Ensure Max c lunches to support protein and micronutrient needs in bariatric supplement formula. Pts renal fxn WNL.
[2020-11-05 13:11] LABS: COVID19 - ADMIT (NP swab/PCR) Negative (Negative)
--- NOTE | 2020-11-05 14:27 | PM.PN.1 ---
Subjective Subjective Date Patient Seen: 11/05/20 Time Patient Seen: 14:27 Interval history: This is a 70-year-old female admitted with lumbar back pain secondary to a compression fracture that has been difficult to control as well as COVID-19 pneumonia with acute respiratory failure. She still complains of shortness of breath today with exertion but at rest she feels quite well. Her back was quite sore today after working with physical therapy, but the pain medications are helping. She has not had a bowel movement in 3-4 days will be started on Colace, MiraLax, and senna today. Was working today to find a COVID positive fci, however repeat testing was negative today. Exam Vital Signs (past 8 hours): - 11/05/20 08:00 11/05/20 08:39 11/05/20 09:06 Temperature 98.3 F Pulse Rate 72 70 Respiratory Rate 16 Blood Pressure 178/82 H 143/86 H Pulse Oximetry 98 98 11/05/20 10:59 11/05/20 11:59 11/05/20 12:00 Temperature 98.3 F Pulse Rate 70 76 Respiratory Rate 16 16 Blood Pressure 149/79 H Pulse Oximetry 94 94 95 Oxygen Delivery Method Room Air Oxygen Flow Rate 0 Narrative Exam Narrative: GENERAL APPEARANCE: Chronically ill-appearing, obese female with BMI of 33.2 in no acute distress. SKIN: Inspection of the skin reveals no rashes, ulcerations or petechiae. HEENT: Normocephalic atraumatic, extraocular muscles are intact, oropharynx is clear and mucous membranes are moist, neck is supple without adenopathy NECK: Supple and symmetric. There was no thyroid enlargement, and no tenderness, or masses were felt. CHEST: Normal AP diameter and normal contour without any kyphoscoliosis. LUNGS: Auscultation of the lungs revealed bibasilar rhonchi without wheezing. CARDIOVASCULAR: There was a regular rate and rhythm without any murmurs, gallops, rubs. Peripheral pulses were 2+ and symmetric. ABDOMEN: Soft and nontender with normal bowel sounds. No ascites was noted. MUSCULOSKELETAL: tenderness lumbar spine. EXTREMITIES: No cyanosis, clubbing or edema. NEUROLOGIC: Alert and oriented x 3. Normal affect. Strength is grossly +5/5 in the Upper Extremities and Lower Extremities Bilaterally but somewhat limited by pain. Objective Labs Result Diagrams: 11/05/20 05:23 11/05/20 05:23 Labs: Laboratory Results - last 24 hr 11/04/20 11/05/20 11/05/20 16:00 05:23 05:23 WBC 8.1 RBC 3.95 L Hgb 11.3 L Hct 35.9 L MCV 90.8 MCH 28.6 MCHC 31.5 RDW 14.4 Plt Count 323 Neut % (Auto) 72.5 Lymph % (Auto) 16.9 L [place] % (Auto) 9.8 Eos % (Auto) 0.3 L Baso % (Auto) 0.5 Neut # (Auto) 5900 Lymph # (Auto) 1400 [place] # (Auto) 800 Eos # (Auto) 0 Baso # (Auto) 0 Sodium 136 L 135 L Potassium 4.6 3.9 Chloride 101 102 Carbon Dioxide 33 H 32 BUN 22 H 21 H Creatinine 0.90 0.83 Estimated GFR > 60.0 > 60.0 BUN/Creatinine Ratio 24.4 H 25.3 H Glucose 234 H 137 H Calcium 9.8 9.2 SARS-CoV-2 (PCR) 11/05/20 11:15 WBC RBC Hgb Hct MCV MCH MCHC RDW Plt Count Neut % (Auto) Lymph % (Auto) [place] % (Auto) Eos % (Auto) Baso % (Auto) Neut # (Auto) Lymph # (Auto) [place] # (Auto) Eos # (Auto) Baso # (Auto) Sodium Potassium Chloride Carbon Dioxide BUN Creatinine Estimated GFR BUN/Creatinine Ratio Glucose Calcium SARS-CoV-2 (PCR) Negative ON LICENSE OF [facility] Medical History Glynn's disease Arthritis Asthma Chronic cough CKD (chronic kidney disease), stage III Diabetes Edema GERD (gastroesophageal reflux disease) Hiatal hernia HLD (hyperlipidemia) HTN (hypertension) Incontinence Interstitial lung disease Nasal polyp Neuropathy Pneumonia Polymyositis Sarcoidosis SCC (squamous cell carcinoma) Surgical History H/O wrist surgery History of arthroplasty of left knee History of arthroplasty of right knee Hx of bilateral cataract extraction Hx of cholecystectomy Hx of hernia repair Hx of tonsillectomy Status post correction of deviated nasal septum Social History household members: none Smoking Status: Never smoker alcohol intake: current Assessment & Plan Assessment & Plan narrative: 70-year-old female admitted to the hospital for acute hypoxic respiratory failure and lumbar compression fracture with difficult to control pain limiting mobility. 1. Acute respiratory failure secondary to COVID 19 pneumonia, improved -patient with recent diagnosis of COVID pneumonia, positive testing on admission. Repeat testing negative today. - continue remdesevir and decadron for now, patient remained hypoxic with activity which is not her baseline she desaturates to 86% on room air. Now testing negative. Will repeat testing tomorrow. She also has a chronic ILD but was not previously requiring O2 as of 3 weeks prior to her first admission. -patient on low-dose prednisone typically. currently on decadron remdesevir. Will stop tomorrow if testing negative. -doubt bacterial pneumonia, IV antibiotics deferred 2. Lumbar compression fracture -PT OT consultation -continue oral Hydromorphone -Tylenol 975 t.i.d. as needed -continue Lidoderm patch -continue cyclobenzaprine -now that repeat COVID testing is negative may be able to transfer to a nearby SNF. 3 Hypertension -continue losartan 4 Acute kidney injury -likely related to dehydration from her diarrhea -will start IV hydration -will recheck labs in the morning -will avoid NSAIDs at this time 5 Interstitial lung disease -chronic 6 Sarcoidosis -chronic 7 Hyperlipidemia -continue statin Patient reports she is DNR DNI Patient reports her neighbor Michael Belcher is her surrogate decision maker, will note that in her record accordingly Continue PT/OT. Plan for SNF. Quality VTE Deep Vein Thrombosis/Pulmonary Embolism Present on Admission: No
[2020-11-05] MEDS: polyethylene glycoL 3350 17 GM POWD.PACK PO (14:48)
--- NOTE | 2020-11-05 15:26 | CM.DPNOTE ---
Faxed referral packet to [facility] and [facility] and received fax confirmation. Esme Patel CM Asst.
--- NOTE | 2020-11-05 16:36 | CM.DPC ---
DCP Continued: Patient is now testing as COVID -19 negative, she has an anticipated D/C date of 11/06/20. Called Juanita for review. Faxed clinical to [facility] and [facility]. Per patient she had COVID-19 vaccines in April and June time frame. Patient confirmed she has COVID-19 documentation. [facility] and [facility] have declined patient acceptance at this time due to recent COVID-19 positive diagnosis. PLAN: CM Team to continue to follow closely. Will continue to assess and assist with safe D/C plans due to lack of acceptance to SNF. TIAN Hubbard MSW Student
[2020-11-05] MEDS: REMDESIVIR 100 MG in SODIUM CHLORIDE 0.9% 230 ML 250 ML IV (17:30)
[2020-11-05] MEDS: ATORVASTATIN 20 MG TABLET 10 MG PO (20:46)
[2020-11-05] MEDS: DOCUSATE 100 MG CAPSULE PO (20:46)
[2020-11-05] MEDS: SENNOSIDES 8.6 MG TABLET 17.2 MG PO (20:47)
[2020-11-06] VITALS (8 sets, daily range): BP systolic 129–184; BP diastolic 74–97; PULSE 68–95; RESP 16–19; TEMP 36.1–36.9; O2SAT 93–98
--- NOTE | 2020-11-06 01:42 | PC.NURSE ---
Patient is alert and oriented. Breath sounds CTA with RA sat of 93%; slight SOB with exertion. Coughing less frequently and denied sputum production. HRR. BP 158/78 and has been trending high. Denied nausea. BT present and abdomen is soft. Denied dysuria with urination but does have frequency and urgency. Able to move self in bed. Up to bathroom with walker and SBA; states she still feels weak in bilateral LE. Complained of back pain severity of 5/10 but tolerable at time of assessment. Wearing bilateral DEBBIE stockings and calf SCD's. Fall risk score is high and bed alarm is activated. On droplet/aerosolizing precautions for COVID.
[2020-11-06] MEDS: HYDROCODONE/ACET 5/325 TABLET 2 TAB PO ×3 (05:00→14:35)
[2020-11-06] MEDS: ENOXAPARIN 40 MG/0.4 ML SYRINGE SUBCUT (09:05)
[2020-11-06] MEDS: ACYCLOVIR 400 MG TABLET PO ×2 (09:05→21:18)
[2020-11-06] MEDS: MYCOPHENOLATE MOFETIL 500 MG TABLET 750 MG PO ×2 (09:06→21:16)
[2020-11-06] MEDS: DEXAMETHASONE 10 MG/ML VIAL 6 MG IV (09:06)
[2020-11-06] MEDS: DOCUSATE 100 MG CAPSULE PO ×2 (09:06→21:18)
[2020-11-06] MEDS: LOSARTAN 25 MG TABLET PO (09:07)
[2020-11-06] MEDS: MONTELUKAST 10 MG TABLET PO (09:07)
[2020-11-06] MEDS: GABAPENTIN 600 MG TABLET PO ×3 (09:07→21:17)
[2020-11-06] MEDS: polyethylene glycoL 3350 17 GM POWD.PACK PO (09:08)
[2020-11-06] MEDS: LIDOCAINE PATCH 1 EACH ADH..PATCH TOP (09:09)
[2020-11-06] MEDS: SODIUM CHLORIDE 0.9% FLUSH 10 ML IV ×3 (09:09→21:21)
[2020-11-06] MEDS: INSULIN LISPRO 100 UNIT/ML 3ML VIAL SUBCUT ×3 (09:11→16:50)
[2020-11-06 10:16] LABS: COVID19 - ADMIT (NP swab/PCR) Negative (Negative)
--- NOTE | 2020-11-06 13:10 | P.PN_ITS ---
Subjective Subjective Date Patient Seen: 11/06/20 Time Patient Seen: 13:10 Interval history: his is a 70-year-old female admitted with lumbar back pain secondary to a compression fracture that has been difficult to control as well as COVID-19 pneumonia with acute respiratory failure. Her back was quite sore today after working with physical therapy, but the pain medications are helping though seemingly somewhat less today. She has not had a bowel movement in 3-4 days will be started on Colace, MiraLax, and senna. Was working today to find a COVID positive detention, however repeat testing was again negative today. She was taken off of isolation precautions. Exam Vital Signs (past 8 hours): - 11/06/20 08:00 11/06/20 09:07 11/06/20 10:22 Temperature 97.9 F Pulse Rate 75 75 70 Respiratory Rate 18 16 Blood Pressure 180/95 H 180/95 H Pulse Oximetry 95 96 11/06/20 12:00 Temperature 97.7 F Pulse Rate 95 H Respiratory Rate 18 Blood Pressure 183/82 H Pulse Oximetry 95 Oxygen Delivery Method Room Air Oxygen Flow Rate 0 Narrative Exam Narrative: GENERAL APPEARANCE: Chronically ill-appearing, obese female with BMI of 33.2 in no acute distress. SKIN: Inspection of the skin reveals no rashes, ulcerations or petechiae. HEENT: Normocephalic atraumatic, extraocular muscles are intact, oropharynx is clear and mucous membranes are moist, neck is supple without adenopathy NECK: Supple and symmetric. There was no thyroid enlargement, and no tenderness, or masses were felt. CHEST: Normal AP diameter and normal contour without any kyphoscoliosis. LUNGS: Auscultation of the lungs revealed bibasilar rhonchi without wheezing. CARDIOVASCULAR: There was a regular rate and rhythm without any murmurs, gallops, rubs. Peripheral pulses were 2+ and symmetric. ABDOMEN: Soft and nontender with normal bowel sounds. No ascites was noted. MUSCULOSKELETAL: tenderness lumbar spine. EXTREMITIES: No cyanosis, clubbing or edema. NEUROLOGIC: Alert and oriented x 3. Normal affect. Strength is grossly +5/5 in the Upper Extremities and Lower Extremities Bilaterally but limited by pain. Objective Labs Result Diagrams: 11/05/20 05:23 11/05/20 05:23 Labs: Laboratory Results - last 24 hr 11/05/20 11/06/20 11:15 08:40 SARS-CoV-2 (PCR) Negative Negative PFS Medical History [place]'s disease Arthritis Asthma Chronic cough CKD (chronic kidney disease), stage III Diabetes Edema GERD (gastroesophageal reflux disease) Hiatal hernia HLD (hyperlipidemia) HTN (hypertension) Incontinence Interstitial lung disease Nasal polyp Neuropathy Pneumonia Polymyositis Sarcoidosis SCC (squamous cell carcinoma) Surgical History H/O wrist surgery History of arthroplasty of left knee History of arthroplasty of right knee Hx of bilateral cataract extraction Hx of cholecystectomy Hx of hernia repair Hx of tonsillectomy Status post correction of deviated nasal septum Social History household members: none Smoking Status: Never smoker alcohol intake: current Assessment & Plan Assessment & Plan narrative: 70-year-old female admitted to the hospital for acute hypoxic respiratory failure and lumbar compression fracture with difficult to control pain limiting mobility. 1. Acute respiratory failure secondary to COVID 19 pneumonia, resolved -patient with recent diagnosis of COVID pneumonia, positive testing on admission. Repeat testing negative today (now x2 and 24 hours apart). Taken off of isolation today. Continue to try to find detention placement. - hypoxemia now resolved. discontinued decadrone and remdesevir. -patient on low-dose prednisone typically, will resume tomorrow. -doubt bacterial pneumonia, IV antibiotics deferred 2. Lumbar compression fracture -PT OT consultation -continue oral Hydromorphone -Tylenol 975 t.i.d. as needed -continue Lidoderm patch -continue cyclobenzaprine -now that repeat COVID testing is negative may be able to transfer to a nearby SNF. 3 Hypertension -continue losartan. Elevated BP today likely in setting of pain. Will add gabapentin. May need additional antihypertensives if remains elevated. 4 Acute kidney injury, resolved -likely related to dehydration from her diarrhea -improved with rehydration. -will avoid NSAIDs at this time 5 Interstitial lung disease -chronic 6 Sarcoidosis -chronic, continue prednisone, cellcept. 7 Hyperlipidemia -continue statin Patient reports she is DNR DNI Patient reports her neighbor Michael Belcher is her surrogate decision maker, will note that in her record accordingly Continue PT/OT. Plan for SNF. Quality VTE Deep Vein Thrombosis/Pulmonary Embolism Present on Admission: No
--- NOTE | 2020-11-06 14:46 | PT.IPTN ---
Current Diagnoses COVID-19 (11/03/20) Physical Therapy Treatment Note M2 PT-IP Current Condition Start: 11/03/20 15:14 Freq: Status: Active Protocol: Document 11/03/20 14:02 AB (Rec: 11/03/20 16:01 AB [id number]) Physical Therapy Current Condition Current Condition Evaluation Date 11/03/20 Treatment Diagnosis weakness Onset Date 11/03/20 Precautions Lumbar Precautions Log Roll,No Twisting,Limit Bending,Lifting Restriction of 10 lbs Other Precautions falls; Covid precautions M3 PT-IP Subjective Start: 11/03/20 15:14 Freq: Status: Active Protocol: Document 11/06/20 14:46 DLM (Rec: 11/06/20 15:04 DLM [id number]) Subjective Physical Therapy Visit Type Type Treatment Note Visit Start Time 14:10 Visit Stop Time 14:46 Total Visit Minutes 36 Number of FOOD PHOTOGRAPHER Visits 0 Physical Therapy Visit Comments Patient Comments She feels she still needs to go to SNF rehab. She spoke with her friend who was helping her at home and he can not help her at night at all. Patient Goals Get better Therapy Pain Assessment Pain When Pain Assessed During Mobility Pain Present Pain Present Pain Reported Location back Intensity 6 Scale Used Numeric (0 - 10) Description Aching,Radiating Pain Behaviors Guarding,Wincing Pain Management Techniques Re-positioning M4 PT-IP Mobility and Gait Start: 11/03/20 15:14 Freq: Status: Active Protocol: Document 11/06/20 14:46 DLM (Rec: 11/06/20 15:04 DLM [id number]) PT-Bed Mobility Assessment Rolling Type of Rolling Log Rolling,Bilateral Level of Assist Standby Assistance Supine to Sit Supine to Sit Standby Assistance,Bedrails Sit to Supine Sit to Supine Minimal Assistance,Bedrails Scooting Scooting to Edge of Bed Standby Assistance Scooting Up and Down in Bed Maximum Assistance PT-Transfer Assessment Sit to and From Stand Sit to and from Stand Contact Guard Assistance,Use of Upper Extremities Equipment Transfer Assistive Device Gait Belt,Front Wheeled Walker Transfers Transfer Destination Bed Transfer Technique Stand Step Pivot Transfer Ability Level of Assist Contact Guard Assistance,Use of Upper Extremities Gait Assessment Gait Gait Assistance Required: Contact Guard Assist Distance (Feet) 38 Assistive Devices Assistive Device Gait Belt,Front Wheeled Walker Gait Deviations General Gait Pattern Decreased Stride Length,Flexed Trunk Factors Limiting Gait Function Factors Limiting Gait Function Decreased Activity Tolerance, Decreased Strength,Pain Comments Gait Comments She has back pain and left hip pain and during gait the pain radiates down the left LE. As she fatigues and her pain increases her trunk flexion increases over the FWW. Pt had to return to bed to rest. O2 sats on room air after gait 90 % with intermittent congested cough. Pt reports fatigue and limit her distance of gait Stair Climbing Assessment Comments Stair Climbing Comments she has 3 steps to enter without rails- did not attemp this visit due to her low activity tolerance PT-Balance Assessment Sitting Balance and Reactions Static Sitting Balance Ability Good Dynamic Sitting Balance Ability Fair Standing Balance and Reactions Static Standing Balance Ability Good Dynamic Standing Balance Ability Fair Device Used FWW Comments Other Balance Tests/Deviations/Treatment her back pain interferes with : her functional balance M5 PT-IP Objective Assessments Start: 11/03/20 15:14 Freq: Status: Active Protocol: Document 11/03/20 14:02 AB (Rec: 11/03/20 16:01 AB [id number]) Orientation Orientation/Cognition Level of Alertness Alert Orientation Name,Situation Language Function Ability No Deficits Noted Safety Awareness Decreased Safety Awareness Gross Range of Motion Lower Extremity ROM Assessment Within Functional Limits Strength Lower Extremity Strength Assessment Bilaterally Impaired Hip 3-/5 Knee 3+/5 Muscle Tone Muscle Tone WNL Yes M6 PT-IP Treatment Start: 11/03/20 15:14 Freq: Status: Active Protocol: Document 11/06/20 14:46 DLM (Rec: 11/06/20 15:04 [facility] [id number]) Physical Therapy Treatment Exercises Exercises Ankle Pumps,Gluteal Sets,Quad Sets,Heel Slides,Supine Hip Abduction Education Education Provided Precautions,Safety M7 PT-IP Assessment and Plan Start: 11/03/20 15:14 Freq: Status: Active Protocol: Document 11/06/20 14:46 DLM (Rec: 11/06/20 15:04 DL [id number]) PT Summary Assessment and Plan Summary Impairments Pain,ROM,Strength,Balance,Bed Mobility,Transfers,Gait, Activity Tolerance Progress Towards Goals Slow Progress due to Pain Assessment Summary Dorene is alert and resting in bed. She reports feeling tired but willing to participate in physical therapy. She reports being up 6 times to urinate last night. She does not feel she is stronge enough to return home. Pt describes very limited assistance available from her friend/neighbor. She tolerated short distance of gait in her room with progressively increasing back pain and radicular left LE pain. Pt returned to bed to rest and manage her pain. Continue to recommend SNF rehab at discharge due to her low activity tolerance and pain. Goals Bed Mobility Goal Independent Transfer Goal Independent,Front Wheeled Walker Gait Goal Independent,Front Wheel Walker ,Four Wheel Walker Gait Distance 100 feet Other Goals up and down 3 steps with hand held assist , min assist Days to Meet Goals 7 Frequency of Treatment Frequency Of Treatment Once a Day Treatment Plan Physical Therapy Treatment Plan Bed Mobility Training,Transfer Training,Gait Training, Therapeutic Exercise,Balance Retraining,Discharge Planning, Hot or Cold Pack,Neuromuscular Re-ed Recommendations To Nursing Amount of Assist Needed 1 Person Assist Discharge Recommendations PT Discharge Recommendations SNF Rehab Transportation Needs at Discharge Private Vehicle,Wheelchair/ Cabulance
--- NOTE | 2020-11-06 14:46 | PT.IPTN ---
Current Diagnoses COVID-19 (11/03/20) Physical Therapy Treatment Note M2 PT-IP Current Condition Start: 11/03/20 15:14 Freq: Status: Active Protocol: Document 11/03/20 14:02 AB (Rec: 11/03/20 16:01 AB [id number]) Physical Therapy Current Condition Current Condition Evaluation Date 11/03/20 Treatment Diagnosis weakness Onset Date 11/03/20 Precautions Lumbar Precautions Log Roll,No Twisting,Limit Bending,Lifting Restriction of 10 lbs Other Precautions falls; Covid precautions M3 PT-IP Subjective Start: 11/03/20 15:14 Freq: Status: Active Protocol: Document 11/06/20 14:46 DLM (Rec: 11/06/20 15:04 DLM [id number]) Subjective Physical Therapy Visit Type Type Treatment Note Visit Start Time 14:10 Visit Stop Time 14:46 Total Visit Minutes 36 Number of TRUCK LOADER OVERHEAD CRANE Visits 0 Physical Therapy Visit Comments Patient Comments She feels she still needs to go to SNF rehab. She spoke with her friend who was helping her at home and he can not help her at night at all. Patient Goals Get better Therapy Pain Assessment Pain When Pain Assessed During Mobility Pain Present Pain Present Pain Reported Location back Intensity 6 Scale Used Numeric (0 - 10) Description Aching,Radiating Pain Behaviors Guarding,Wincing Pain Management Techniques Re-positioning M4 PT-IP Mobility and Gait Start: 11/03/20 15:14 Freq: Status: Active Protocol: Document 11/06/20 14:46 DLM (Rec: 11/06/20 15:04 DLM [id number]) PT-Bed Mobility Assessment Rolling Type of Rolling Log Rolling,Bilateral Level of Assist Standby Assistance Supine to Sit Supine to Sit Standby Assistance,Bedrails Sit to Supine Sit to Supine Minimal Assistance,Bedrails Scooting Scooting to Edge of Bed Standby Assistance Scooting Up and Down in Bed Maximum Assistance PT-Transfer Assessment Sit to and From Stand Sit to and from Stand Contact Guard Assistance,Use of Upper Extremities Equipment Transfer Assistive Device Gait Belt,Front Wheeled Walker Transfers Transfer Destination Bed Transfer Technique Stand Step Pivot Transfer Ability Level of Assist Contact Guard Assistance,Use of Upper Extremities Gait Assessment Gait Gait Assistance Required: Contact Guard Assist Distance (Feet) 38 Assistive Devices Assistive Device Gait Belt,Front Wheeled Walker Gait Deviations General Gait Pattern Decreased Stride Length,Flexed Trunk Factors Limiting Gait Function Factors Limiting Gait Function Decreased Activity Tolerance, Decreased Strength,Pain Comments Gait Comments She has back pain and left hip pain and during gait the pain radiates down the left LE. As she fatigues and her pain increases her trunk flexion increases over the FWW. Pt had to return to bed to rest. O2 sats on room air after gait 90 % with intermittent congested cough. Pt reports fatigue and limit her distance of gait Stair Climbing Assessment Comments Stair Climbing Comments she has 3 steps to enter without rails- did not attemp this visit due to her low activity tolerance PT-Balance Assessment Sitting Balance and Reactions Static Sitting Balance Ability Good Dynamic Sitting Balance Ability Fair Standing Balance and Reactions Static Standing Balance Ability Good Dynamic Standing Balance Ability Fair Device Used FWW Comments Other Balance Tests/Deviations/Treatment her back pain interferes with : her functional balance M5 PT-IP Objective Assessments Start: 11/03/20 15:14 Freq: Status: Active Protocol: Document 11/03/20 14:02 AB (Rec: 11/03/20 16:01 AB [id number]) Orientation Orientation/Cognition Level of Alertness Alert Orientation Name,Situation Language Function Ability No Deficits Noted Safety Awareness Decreased Safety Awareness Gross Range of Motion Lower Extremity ROM Assessment Within Functional Limits Strength Lower Extremity Strength Assessment Bilaterally Impaired Hip 3-/5 Knee 3+/5 Muscle Tone Muscle Tone WNL Yes M6 PT-IP Treatment Start: 11/03/20 15:14 Freq: Status: Active Protocol: Document 11/06/20 14:46 DLM (Rec: 11/06/20 15:04 [facility] [id number]) Physical Therapy Treatment Exercises Exercises Ankle Pumps,Gluteal Sets,Quad Sets,Heel Slides,Supine Hip Abduction Education Education Provided Precautions,Safety M7 PT-IP Assessment and Plan Start: 11/03/20 15:14 Freq: Status: Active Protocol: Document 11/06/20 14:46 DLM (Rec: 11/06/20 15:04 DL [id number]) PT Summary Assessment and Plan Summary Impairments Pain,ROM,Strength,Balance,Bed Mobility,Transfers,Gait, Activity Tolerance Progress Towards Goals Slow Progress due to Pain Assessment Summary Dorene is alert and resting in bed. She reports feeling tired but willing to participate in physical therapy. She reports being up 6 times to urinate last night. She does not feel she is stronge enough to return home. Pt describes very limited assistance available from her friend/neighbor. She tolerated short distance of gait in her room with progressively increasing back pain and radicular left LE pain. Pt returned to bed to rest and manage her pain. Continue to recommend SNF rehab at discharge due to her low activity tolerance and pain. Goals Bed Mobility Goal Standby Assistance Transfer Goal Standby Assistance,Front Wheeled Walker Gait Goal Standby Assistance,Front Wheel Walker,Four Wheel Walker Gait Distance 100 feet Other Goals up and down 3 steps with hand held assist , min assist Days to Meet Goals 8 Frequency of Treatment Frequency Of Treatment Once a Day Treatment Plan Physical Therapy Treatment Plan Bed Mobility Training,Transfer Training,Gait Training, Therapeutic Exercise,Balance Retraining,Discharge Planning, Hot or Cold Pack,Neuromuscular Re-ed Recommendations To Nursing Amount of Assist Needed 1 Person Assist Discharge Recommendations PT Discharge Recommendations SNF Rehab Transportation Needs at Discharge Private Vehicle,Wheelchair/ Cabulance
--- NOTE | 2020-11-06 14:59 | OT.IPNOTE ---
Pt just completed PT session and now too tired to try OT at this time. Able to talk to pt regarding having any help at home. Pt states, ' my neighbor it out and no longer wanting to help as it is too much for him. Pt states that she is on her own and wanting to go to skilled rehab. To see pt tomorrow for showering.
--- NOTE | 2020-11-06 17:01 | CM.DPC ---
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 Therapies are recommending SNF placement this is also patient?s first choice as well. There has been three denials all a requesting x2 negative COVID tests (in a 72 our period): [facility], [facility] and [facility]. -Called/faxed clinicals and left messages to the following facilities : *[facility] (multiple attempts no answer) *[facility] (not accepting). *[facility] (pending) *[facility] * [facility] (pending). [facility] is able to accept and start Home Health Services on . Faxed clinicals and order to [facility]. PLAN: CM Team to continue to follow: D/C planning continued SNF vs Home with Home Health. TIAN Hubbard MSW Student
[2020-11-06] MEDS: ONDANSETRON 4 MG/2 ML INJ IV (17:53)
[2020-11-06] MEDS: SENNOSIDES 8.6 MG TABLET 17.2 MG PO (21:18)
[2020-11-06] MEDS: ATORVASTATIN 20 MG TABLET 10 MG PO (21:19)
[2020-11-07] MEDS: HYDROCODONE/ACET 5/325 TABLET 2 TAB PO ×4 (00:09→17:03)
[2020-11-07 00:19] VITALS: BP 144/97; PULSE 64; RESP 16; TEMP 36.2; O2SAT 94
--- NOTE | 2020-11-07 00:35 | PC.NURSE ---
Patient is alert and oriented. Breath sounds diminished with expiratory rhonchi throughout; RA sat 94%. States she still feels a little SOB at rest and SOB by the end of activity. Moist sounding non productive cough. HRR. BP elevated at 144/97 but improved from last night. Denies nausea (was nauseated and vomited on previous shift). BT present and abdomen is soft. Denies dysuria but has some urgency and stress incontinence. Was voiding frequently last night but denies frequency now. Is able to move herself in bed. Up to bathroom with walker and SBA; states she still feels weak. Complained of 7/10 achy, sometimes sharp, back pain and was medicated with Vicodin and repositioned onto right side with pillows for support. Has bilateral DEBBIE stockings on but declines use of SCD's tonight so discussed importance of ankle waving when awake; verbalizes understanding. Fall risk score is high and bed alarm is activated.
[2020-11-07 05:19] VITALS: BP 156/86; PULSE 69; RESP 16; TEMP 36.3; O2SAT 92
[2020-11-07 08:00] VITALS: BP 199/94; PULSE 70; RESP 18; TEMP 36.2; O2SAT 94
[2020-11-07] MEDS: LIDOCAINE PATCH 1 EACH ADH..PATCH TOP (08:51)
[2020-11-07] MEDS: GABAPENTIN 600 MG TABLET PO ×3 (08:52→20:44)
[2020-11-07] MEDS: LOSARTAN 25 MG TABLET PO ×2 (08:52→15:11)
[2020-11-07] MEDS: ENOXAPARIN 40 MG/0.4 ML SYRINGE SUBCUT (08:52)
[2020-11-07] MEDS: polyethylene glycoL 3350 17 GM POWD.PACK PO (08:52)
[2020-11-07] MEDS: ACYCLOVIR 400 MG TABLET PO ×2 (08:52→20:44)
[2020-11-07] MEDS: DOCUSATE 100 MG CAPSULE PO ×2 (08:52→20:44)
[2020-11-07] MEDS: MONTELUKAST 10 MG TABLET PO (08:52)
[2020-11-07] MEDS: MYCOPHENOLATE MOFETIL 500 MG TABLET 750 MG PO ×2 (08:53→20:44)
[2020-11-07] MEDS: predniSONE 1 MG TABLET 4 MG PO (08:53)
[2020-11-07] MEDS: SODIUM CHLORIDE 0.9% FLUSH 10 ML IV ×2 (08:54→20:45)
--- NOTE | 2020-11-07 10:00 | OT.IP.TRT ---
Current Diagnoses COVID-19 (11/03/20) Occupational Therapy Treatment Note M2 OT-IP Current Condition Start: 11/05/20 10:39 Freq: Status: Active Protocol: Document 11/05/20 10:40 CGR (Rec: 11/05/20 10:52 CGR [id number]) Occupational Therapy Current Condition Current Condition Evaluation Date 11/05/20 Treatment Diagnosis L2 compression fx, back pain, covid +, recent admit with same complaints Diagnosis Onset Date 11/03/20 Post Operative Precautions Lumbar Precautions Log Roll,No Twisting,Limit Bending,Lifting Restriction of 10 lbs,Gait Belt above Incisional Area M3 OT- IP Subjective and Pain Start: 11/05/20 10:39 Freq: Status: Active Protocol: Document 11/07/20 10:33 CCC (Rec: 11/07/20 10:44 [facility] [id number]) OT- Subjective Occupational Therapy Visit Type Type Treatment Note Visit Start Time 10:00 Visit Stop Time 10:31 Total Visit Minutes 31 Occupational Therapy Visit Comments Patient Comments Pt wanting to shower. Patient/Caregiver Goals TO go to skilled rehab prior to going home. OT Pain Assessment Pain When Pain Assessed At Rest Pain Present Pain Present Pain Reported Location back Intensity 7 Scale Used Numeric (0 - 10) M4 OT- IP ADL's Start: 11/05/20 10:39 Freq: Status: Active Protocol: Document 11/07/20 10:33 [facility] (Rec: 11/07/20 10:44 [facility] [id number]) OT ADL-Dressing General Eval Lower Body Dressing Ability Maximum Assistance Areas Needing Assistance Underpants/Brief,Socks Comments OT Dressing Comments Pt too tired and weak and needing assist for LB dressing needs, even with use of extension specialist. OT ADL-Bathing Bathing Type Bathing Type Shower General Evaluation Bathing Ability Maximal Assistance Areas Needing Assistance Wash/Dry Back,Wash/Dry Perineal Area,Wash/Dry Lower Extremities Comments OT Bathing Comments Pt to tired and feeling weak and needing assist to help wash and dry her BLE. Pt not able to reach for pericare needs and needing assist. Suggested when her balance is better may be able to use a thin wash cloth between her legs to assist with hygiene needs. M5 OT- IP IADL's Start: 11/05/20 10:39 Freq: Status: Active Protocol: Document 11/05/20 10:40 CGR (Rec: 11/05/20 10:52 CGR [id number]) OT-Instrumental Activities of Daily Living Deficits IADL Deficits Identified Deficits Home Safety Awareness Awareness of Need for Assistance at Home Good Awareness Ability to Problem Solve Emergency Able to Problem Solve Situations Medication Management Medication Management No Deficits Identified Money Management Money Management No Deficits Identified Meal Preparation Meal Preparation Caregiver Provides Assist Manager It Training Manager It Training Caregiver Provides Assist Driving Driving Concerns Identified Regarding Safety M6 OT- IP Functional Cognition Start: 11/05/20 10:39 Freq: Status: Active Protocol: Document 11/07/20 10:33 [facility] (Rec: 11/07/20 10:44 [facility] [id number]) Cognitive Factors Limiting Selfcare Function Cognitive Comments Cognitive Assessment Comments Today pt a little forgetful but able to realize after standing and about to take a step to pull up her brief. Pt realizes that she is not able to care for herself and willing to go to skilled rehab . M7 OT- IP Mobility and Balance Start: 11/05/20 10:39 Freq: Status: Active Protocol: Document 11/07/20 10:33 [facility] (Rec: 11/07/20 10:44 [facility] [id number]) OT- Bed Mobility Assessment Rolling Level of Assistance Standby Assistance Supine to Sit Supine to Sit Assist Standby Assistance Sit to Supine Sit to Supine Assist Minimal Assistance OT-Transfer Assessment Sit to and From Stand Sit to and from Stand Standby Assistance,Minimal Assistance Transfers Transfer Ability Standby Assistance,Contact Guard Assistance Technique Transfer Destination Bed,Shower Stall Transfer Technique Stand Step Pivot Devices Transfer Assistive Devices Gait Belt,Front Wheeled Walker Comments Mobility Comments Assist to help get her legs back in bed. Pt needing JAKE from lower surfaces to come to stand. CGA with FWW to step over the threshold. OT- Balance Assessment Sitting Balance and Reactions Static Sitting Balance Ability Good Dynamic Sitting Balance Ability Fair Standing Balance and Reactions Static Standing Balance Ability Fair M8 OT- IP Objective Assessments Start: 11/05/20 10:39 Freq: Status: Active Protocol: Document 11/05/20 10:40 CGR (Rec: 11/05/20 10:52 CGR [id number]) OT Gross Range of Motion Upper Extremity Range of Motion Assessment Within Functional Limits OT Strength Comments Strength Comments Unable to tolerate testing d/t back pain OT- Coordination Assessment Upper Extremity Finger to Nose Test Within Functional Limits Finger Tapping Test Within Functional Limits OT-Muscle Tone Assessment Muscle Tone WNL Yes OT Sensation Assessment Edema Edema Absent M9 OT- IP Assessment and Plan Start: 11/05/20 10:39 Freq: Status: Active Protocol: Document 11/07/20 10:33 [facility] (Rec: 11/07/20 10:44 [facility] [id number]) OT Summary Assessment and Plan Potential Rehabilitation Potential Excellent Analytic Complexity at Evaluation Moderate Summary OT Impairments Pain,Strength,Balance, Functional Mobility,Grooming, Dressing,Toileting,Bathing, Toilet Transfers,Shower Transfers,Activity Tolerance Progress Towards Goals Progressing Toward Goals Assessment Summary Pt able to tolerate a shower but still needing assist due to her weakness, balance, and pain. Pt motivated to go to skilled rehab as has had 2 falls in the past 2 weeks and feels that she is weak and not able to safely be able to care fore herself due to recent compression fracture. Therefore suggest pt to go to skilled rehab when medically stable. Goals Grooming Goal Independent Dressing Goal Independent Toileting Goal Independent Bathing Goal Independent Toilet Transfer Goal Independent Shower Transfer Goal Independent Days to Meet Goals 20 Frequency of Treatment Frequency Of Treatment Once a Day Treatment Plan OT Treatment Plan ADL Training,Functional Mobility,Patient/Family Education,Discharge Planning Other Treatment Recommendations and Next LB equipment training. Treatment Focus Discharge Recommendations OT Discharge Recommendations SNF Rehab Transportation Needs at Discharge Private Vehicle,Wheelchair/ Cabulance
--- NOTE | 2020-11-07 10:34 | PC.NURSE ---
Patient is a one person assist to ambulate with the walker. Occupational Therapist just gave patient a shower and states that she need quite a bit of help. She has voided x2 since 700 am and been incontinent of urine x1. States that she is going more that usual, denies any burning upon urination. O odor to urine and she is voiding clear yellow. Just medicated with 2 vicodin for complaints of 7/10 back pain and lidocaine patch applied to lower mid back. LS clear upon auscultation, high 90s on room air, o cough noted. Resting supine in bed.
--- NOTE | 2020-11-07 11:12 | CM.DPC ---
DCP/continued: Reviewed chart. Current recommendation from provider and therapy is SNF. CM team having difficult time with placement due to patient having 1 initial COVID positive test during hospitalization. Last 2 tests both negative. UNDER TRIMMER placed call to [facility] to check on availability, message left for Yuki and clinicals faxed for review. In addition, placed call to Gracy at [facility] re: acceptance? September reports that she is waiting to hear from her administration on whether or not they can accept. Therapy working with patient today and recommendation continues to be SNF. Patient live alone and has minimal support. P: Pending TIAN Hubbard
--- NOTE | 2020-11-07 11:47 | PT.IPTN ---
Current Diagnoses COVID-19 (11/03/20) Physical Therapy Treatment Note M2 PT-IP Current Condition Start: 11/03/20 15:14 Freq: Status: Active Protocol: Document 11/03/20 14:02 AB (Rec: 11/03/20 16:01 AB [id number]) Physical Therapy Current Condition Current Condition Evaluation Date 11/03/20 Treatment Diagnosis weakness Onset Date 11/03/20 Precautions Lumbar Precautions Log Roll,No Twisting,Limit Bending,Lifting Restriction of 10 lbs Other Precautions falls; Covid precautions M3 PT-IP Subjective Start: 11/03/20 15:14 Freq: Status: Active Protocol: Document 11/07/20 11:22 SP (Rec: 11/07/20 13:34 SP [id number]) Subjective Physical Therapy Visit Type Type Treatment Note Visit Start Time 11:22 Visit Stop Time 11:47 Total Visit Minutes 25 Notes Vital taken after mobility: BP 184/95 hr 73, upper SaO2 90s on RA. Number of GLUE PLANT OPERATOR Visits 1 Physical Therapy Visit Comments Patient Comments Pt willing to work with therapy, states is still to weak to go home and her friend that has helped her in past is not able to help, his own medical concerns so at this point does not have any support at home. Patient Goals Wants to go to SNF to get stronger. Therapy Pain Assessment Pain When Pain Assessed During Mobility Pain Present Pain Present Pain Reported Location back Intensity 7 Scale Used Numeric (0 - 10) Description Aching,Sharp Pain Behaviors Facial Grimacing,Wincing Pain Management Techniques Modification of Treatment,Re- positioning,Timing of Activity with Medications M4 PT-IP Mobility and Gait Start: 11/03/20 15:14 Freq: Status: Active Protocol: Document 11/07/20 11:22 SP (Rec: 11/07/20 13:34 SP [id number]) PT-Bed Mobility Assessment Rolling Type of Rolling Log Rolling,Bilateral Level of Assist Standby Assistance Supine to Sit Supine to Sit Standby Assistance,Bedrails Scooting Scooting to Edge of Bed Standby Assistance PT-Transfer Assessment Sit to and From Stand Sit to and from Stand Standby Assistance,Use of Upper Extremities Equipment Transfer Assistive Device Gait Belt,Front Wheeled Walker Orthotic/Prosthetic Devices or Brace: No Transfers Transfer Destination Chair,Toilet Transfer Technique pt ambulated using FWW Transfer Ability Level of Assist Standby Assistance,Use of Upper Extremities Comments Mobility Comments Pt supine in bed when arrived. Pt performed LE ex:AP, heel slides, hip abd, quad sets pre mobility. LR to R use of bed rails, R SL to sit w/ bed rails, scoot to EOB SBA with heavy use of BUE. Sit>stand SBA use of fWW,cued for proper hand placement for safety. Pt ambulated to bathroom 10 ft SBA FWW, slow descent to toilet use of grab bar, self pericare in sitting, sit>stand SBA use of grab bar and toilet seat. Ambulated to sink sBA stable balance to wash hands. Pt ambulated further distance into hallway approx 110ft total sBA, BLE slow small stride length secondary to decreased to strength. GLUE PLANT OPERATOR offered assessment of stairs with pt declined during gait usign FWW SBA, not today, I am getting very tired and want to go back to my room. When returned to room pt sat in chair, able to scoot back with feet on chair foot plate. Pt had call light and all needs in reach. Provided chair alarm for safety before left. Gait Assessment Gait Gait Assistance Required: Standby Assistance Distance (Feet) 110 Able to Maintain Weight Bearing Status Yes During Gait Assistive Devices Assistive Device Gait Belt,Front Wheeled Walker Orthotic/Prosthetic Devices or Brace: No Gait Deviations General Gait Pattern Decreased Stride Length,Flexed Trunk Factors Limiting Gait Function Factors Limiting Gait Function Decreased Activity Tolerance, Decreased Strength,Pain Comments Gait Comments See mobility coments. Stair Climbing Assessment Comments Stair Climbing Comments Pt decreased activity tolerance and strength during gait, unable to assess stair mgt. Pt clarified she has 3 platform steps that can use her FWW. PT-Balance Assessment Sitting Balance and Reactions Static Sitting Balance Ability Good Dynamic Sitting Balance Ability Fair Standing Balance and Reactions Static Standing Balance Ability Good Dynamic Standing Balance Ability Good Device Used FWW M5 PT-IP Objective Assessments Start: 11/03/20 15:14 Freq: Status: Active Protocol: Document 11/03/20 14:02 AB (Rec: 11/03/20 16:01 AB [id number]) Orientation Orientation/Cognition Level of Alertness Alert Orientation Name,Situation Language Function Ability No Deficits Noted Safety Awareness Decreased Safety Awareness Gross Range of Motion Lower Extremity ROM Assessment Within Functional Limits Strength Lower Extremity Strength Assessment Bilaterally Impaired Hip 3-/5 Knee 3+/5 Muscle Tone Muscle Tone WNL Yes M6 PT-IP Treatment Start: 11/03/20 15:14 Freq: Status: Active Protocol: Document 11/07/20 11:22 SP (Rec: 11/07/20 13:34 SP [id number]) Physical Therapy Treatment Exercises Exercises Ankle Pumps,Quad Sets,Heel Slides,Supine Hip Abduction Education Education Provided Precautions,Safety M7 PT-IP Assessment and Plan Start: 11/03/20 15:14 Freq: Status: Active Protocol: Document 11/07/20 11:22 SP (Rec: 11/07/20 13:34 SP [id number]) PT Summary Assessment and Plan Potential Rehabilitation Potential Fair Status of Condition at Evaluation Evolving Summary Impairments Pain,ROM,Strength,Balance,Bed Mobility,Transfers,Gait, Activity Tolerance Progress Towards Goals Progressing Toward Goals,Slow Progress due to Pain,Slow Progress due to Activity Tolerance Assessment Summary Pt requires sBA during all mobilitiy using FWW. Unable to assess stair mgt due to decreased strength and activity tolerance. Recommending SNF to improved strength and activity tolerance for independence in functional mobility. Pt lives alone with no one to support her. Will continue to assess progress. Goals Bed Mobility Goal Independent Transfer Goal Independent,Front Wheeled Walker Gait Goal Independent,Front Wheel Walker ,Four Wheel Walker Gait Distance 100 feet Other Goals up and down 3 steps with hand held assist , min assist Days to Meet Goals 7 Frequency of Treatment Frequency Of Treatment Once a Day Treatment Plan Physical Therapy Treatment Plan Bed Mobility Training,Transfer Training,Gait Training, Therapeutic Exercise,Balance Retraining,Discharge Planning, Hot or Cold Pack,Neuromuscular Re-ed Other Recommendations and Next Treatment Standing ex, further distance Focus gait fWW or 4WW has at home, 3 PF steps w/ FWW. Recommendations To Nursing Amount of Assist Needed Standby Assistance Discharge Recommendations PT Discharge Recommendations SNF Rehab Transportation Needs at Discharge Private Vehicle,Wheelchair/ Cabulance
[2020-11-07 11:50] VITALS: BP 191/97; PULSE 72; RESP 18; TEMP 35.8; O2SAT 96
--- NOTE | 2020-11-07 11:59 | PC.NURSE ---
RN notified of High BP
[2020-11-07] MEDS: INSULIN LISPRO 100 UNIT/ML 3ML VIAL SUBCUT ×2 (12:08→16:42)
--- NOTE | 2020-11-07 13:26 | P.PN_ITS ---
Subjective Subjective Date Patient Seen: 11/07/20 Time Patient Seen: 13:26 Interval history: This is a 70-year-old female admitted with lumbar back pain secondary to a compression fracture that has been difficult to control as well as COVID-19 pneumonia with acute respiratory failure. Was working today to find a COVID positive halfway, however repeat testing was again negative. She was taken off of isolation precautions. Doing well and continues to mobilize with PT but patient lives alone. She continues to have some low back pain today after working with PT. Awaiting bed for SNF currently. Exam Vital Signs (past 8 hours): - 11/07/20 08:00 11/07/20 11:50 Temperature 97.2 F L 96.4 F L Pulse Rate 70 72 Respiratory Rate 18 18 Blood Pressure 199/94 H 191/97 H Pulse Oximetry 94 96 Oxygen Delivery Method Room Air Oxygen Flow Rate 0 Narrative Exam Narrative: GENERAL APPEARANCE: Chronically ill-appearing, obese female with BMI of 33.2 in no acute distress. SKIN: Inspection of the skin reveals no rashes, ulcerations or petechiae. HEENT: Normocephalic atraumatic, extraocular muscles are intact, oropharynx is clear and mucous membranes are moist, neck is supple without adenopathy NECK: Supple and symmetric. There was no thyroid enlargement, and no tenderness, or masses were felt. CHEST: Normal AP diameter and normal contour without any kyphoscoliosis. LUNGS: Auscultation of the lungs revealed bibasilar rhonchi without wheezing. CARDIOVASCULAR: There was a regular rate and rhythm without any murmurs, gallops, rubs. Peripheral pulses were 2+ and symmetric. ABDOMEN: Soft and nontender with normal bowel sounds. No ascites was noted. MUSCULOSKELETAL: tenderness lumbar spine. EXTREMITIES: No cyanosis, clubbing or edema. NEUROLOGIC: Alert and oriented x 3. Normal affect. Strength is grossly +5/5 in the Upper Extremities and Lower Extremities Bilaterally but limited by pain. Objective Labs Result Diagrams: 11/05/20 05:23 11/05/20 05:23 PENDING SALE TO [facility] Medical History Calcasieu's disease Arthritis Asthma Chronic cough CKD (chronic kidney disease), stage III Diabetes Edema GERD (gastroesophageal reflux disease) Hiatal hernia HLD (hyperlipidemia) HTN (hypertension) Incontinence Interstitial lung disease Nasal polyp Neuropathy Pneumonia Polymyositis Sarcoidosis SCC (squamous cell carcinoma) Surgical History H/O wrist surgery History of arthroplasty of left knee History of arthroplasty of right knee Hx of bilateral cataract extraction Hx of cholecystectomy Hx of hernia repair Hx of tonsillectomy Status post correction of deviated nasal septum Social History household members: none Smoking Status: Never smoker alcohol intake: current Assessment & Plan Assessment & Plan narrative: 70-year-old female admitted to the hospital for acute hypoxic respiratory failure and lumbar compression fracture with difficult to control pain limiting mobility. 1. Acute respiratory failure secondary to COVID 19 pneumonia, resolved -patient with recent diagnosis of COVID pneumonia, positive testing on admission. Repeat testing negative today (now x2 and 24 hours apart). Taken off of isolation yesterday. Continue to try to find halfway placement. - hypoxemia now resolved. discontinued decadrone and remdesevir. -patient on low-dose prednisone typically, have now resumed. -doubt bacterial pneumonia, IV antibiotics deferred 2. Lumbar compression fracture -PT OT consultation -continue oral Hydromorphone -Tylenol 975 t.i.d. as needed -continue Lidoderm patch -continue cyclobenzaprine -now that repeat COVID testing is negative may be able to transfer to a [facility] SNF. 3 Hypertension -continue losartan. Elevated BP today again will increase to 50 mg daily. Added gabapentin as well. 4 Acute kidney injury, resolved -likely related to dehydration from her diarrhea -improved with rehydration. -will avoid NSAIDs at this time 5 Interstitial lung disease -chronic 6 Sarcoidosis -chronic, continue prednisone, cellcept. 7 Hyperlipidemia -continue statin Patient reports she is DNR DNI Patient reports her neighbor Michael Belcher is her surrogate decision maker, will note that in her record accordingly Continue PT/OT. Medically ready for SNF, pending bed at this time. Quality VTE Deep Vein Thrombosis/Pulmonary Embolism Present on Admission: No
[2020-11-07] MEDS: OXYBUTYNIN 5 MG TABLET PO ×2 (15:11→20:44)
[2020-11-07 15:42] VITALS: BP 159/82; PULSE 65; RESP 16; TEMP 36.1; O2SAT 95
[2020-11-07 19:49] VITALS: BP 160/83; PULSE 68; RESP 16; TEMP 35.8; O2SAT 95
[2020-11-07] MEDS: ATORVASTATIN 20 MG TABLET 10 MG PO (20:44)
[2020-11-07] MEDS: SENNOSIDES 8.6 MG TABLET 17.2 MG PO (20:44)
[2020-11-08] VITALS: BP 116/70; PULSE 67; RESP 16; TEMP 35.9; O2SAT 93
--- NOTE | 2020-11-08 03:58 | PC.NURSE ---
Patient is alert and oriented. Breath sounds with inspiratory crackles bilateral bases and RA sat of 93%; denies SOB tonight. Still with occasional, moist, non productive cough. HRR with improved BP of 116/70 after receiving additional dose of Losartan yesterday. Denied nausea. BT hypoactive and patient states she has not been passing flatus; no BM since 11/05 but is on several bowel meds. Denied dysuria, frequency or urgency tonight but did have frequency yesterday and was started on Oxybutinin. Is able to turn herself in bed and gets up to bathroom with walker and SBA. Wearing bilateral DEBBIE stockings and calf SCD's. Has chronic back pain but denies need for pain medication at time of assessment. Fall risk score is high and bed alarm is activated.
[2020-11-08 04:00] VITALS: BP 123/61; PULSE 72; RESP 16; TEMP 36.2; O2SAT 93
[2020-11-08] MEDS: HYDROCODONE/ACET 5/325 TABLET 2 TAB PO ×3 (06:14→20:37)
[2020-11-08 08:00] VITALS: BP 141/75; PULSE 70; RESP 17; TEMP 36.4; O2SAT 94
--- NOTE | 2020-11-08 08:38 | CM.DPNOTE ---
Faxed recent PN, PT notes & med list to Yuki at [facility] and received fax con. Esme Patel CM Asst.
[2020-11-08] MEDS: NYSTATIN POWDER 15GM 1 APPLIC TOP (08:41)
[2020-11-08] MEDS: polyethylene glycoL 3350 17 GM POWD.PACK PO (08:42)
[2020-11-08] MEDS: ENOXAPARIN 40 MG/0.4 ML SYRINGE SUBCUT (08:43)
[2020-11-08] MEDS: OXYBUTYNIN 5 MG TABLET PO ×3 (08:44→20:37)
[2020-11-08] MEDS: MYCOPHENOLATE MOFETIL 500 MG TABLET 750 MG PO ×2 (08:44→20:37)
[2020-11-08] MEDS: GABAPENTIN 600 MG TABLET PO ×3 (08:44→20:37)
[2020-11-08] MEDS: DOCUSATE 100 MG CAPSULE PO ×2 (08:45→20:36)
[2020-11-08] MEDS: ACYCLOVIR 400 MG TABLET PO ×2 (08:45→20:36)
[2020-11-08] MEDS: MONTELUKAST 10 MG TABLET PO (08:45)
[2020-11-08] MEDS: predniSONE 1 MG TABLET 4 MG PO (08:45)
[2020-11-08] MEDS: LIDOCAINE PATCH 1 EACH ADH..PATCH TOP (08:47)
--- NOTE | 2020-11-08 10:12 | OT.IP.TRT ---
Current Diagnoses COVID-19 (11/03/20) Occupational Therapy Treatment Note M2 OT-IP Current Condition Start: 11/05/20 10:39 Freq: Status: Active Protocol: Document 11/05/20 10:40 CGR (Rec: 11/05/20 10:52 CGR [id number]) Occupational Therapy Current Condition Current Condition Evaluation Date 11/05/20 Treatment Diagnosis L2 compression fx, back pain, covid +, recent admit with same complaints Diagnosis Onset Date 11/03/20 Post Operative Precautions Lumbar Precautions Log Roll,No Twisting,Limit Bending,Lifting Restriction of 10 lbs,Gait Belt above Incisional Area M3 OT- IP Subjective and Pain Start: 11/05/20 10:39 Freq: Status: Active Protocol: Document 11/08/20 16:18 [facility] (Rec: 11/08/20 16:26 [facility] [id number]) OT- Subjective Occupational Therapy Visit Type Type Treatment Note Visit Start Time 10:12 Visit Stop Time 10:35 Total Visit Minutes 23 Occupational Therapy Visit Comments Patient Comments Pt wanting to use the bathroom . Patient/Caregiver Goals To go to skilled rehab. OT Pain Assessment Pain When Pain Assessed At Rest Pain Present Pain Present Pain Reported Location back Intensity 7 Scale Used Numeric (0 - 10) M4 OT- IP ADL's Start: 11/05/20 10:39 Freq: Status: Active Protocol: Document 11/08/20 16:18 [facility] (Rec: 11/08/20 16:26 [facility] [id number]) OT BDR-[id number] General Evaluation Self-Feeding Ability Independent OT ADL-Grooming General Evaluation Grooming Ability Standby Assistance Comments OT Grooming Comments SBA while standing with FWW. OT ADL-Oral Care General Eval Oral Care Ability Independent OT ADL-Dressing General Eval Lower Body Dressing Ability Contact Guard Assistance Areas Needing Assistance Underpants/Brief Comments OT Dressing Comments Pt able to use health facilities surveyor to assist for brief today, and needing CGA while standing to ronald brief over her hips. OT ADL-Toileting General Evaluation Toileting Ability Contact Guard Assistance Areas Needing Assistance Manage Clothing Comments OT Toileting Comments Pt able to reach appropriately to wipe today. M5 OT- IP IADL's Start: 11/05/20 10:39 Freq: Status: Active Protocol: Document 11/05/20 10:40 CGR (Rec: 11/05/20 10:52 CGR [id number]) OT-Instrumental Activities of Daily Living Deficits IADL Deficits Identified Deficits Home Safety Awareness Awareness of Need for Assistance at Home Good Awareness Ability to Problem Solve Emergency Able to Problem Solve Situations Medication Management Medication Management No Deficits Identified Money Management Money Management No Deficits Identified Meal Preparation Meal Preparation Caregiver Provides Assist Tableau Administrator Tableau Administrator Caregiver Provides Assist Driving Driving Concerns Identified Regarding Safety M6 OT- IP Functional Cognition Start: 11/05/20 10:39 Freq: Status: Active Protocol: Document 11/08/20 16:18 [facility] (Rec: 11/08/20 16:26 [facility] [id number]) Cognitive Factors Limiting Selfcare Function Cognitive Comments Cognitive Assessment Comments Intact. M7 OT- IP Mobility and Balance Start: 11/05/20 10:39 Freq: Status: Active Protocol: Document 11/08/20 16:18 [facility] (Rec: 11/08/20 16:26 [facility] [id number]) OT- Bed Mobility Assessment Rolling Level of Assistance Standby Assistance Supine to Sit Supine to Sit Assist Standby Assistance Sit to Supine Sit to Supine Assist Contact Guard Assistance OT-Transfer Assessment Sit to and From Stand Sit to and from Stand Standby Assistance Transfers Transfer Ability Standby Assistance Technique Transfer Destination Bed,Toilet Transfer Technique Stand Step Pivot Devices Transfer Assistive Devices Gait Belt,Front Wheeled Walker Comments Mobility Comments Pt still needing a little assist to help get pt's legs back to the bed. OT- Gait Assessment Comments Gait Ability Comments SBA with FWW for level surfaces. OT- Balance Assessment Sitting Balance and Reactions Static Sitting Balance Ability Normal Dynamic Sitting Balance Ability Good Standing Balance and Reactions Static Standing Balance Ability Fair M8 OT- IP Objective Assessments Start: 11/05/20 10:39 Freq: Status: Active Protocol: Document 11/05/20 10:40 CGR (Rec: 11/05/20 10:52 R [id number]) OT Gross Range of Motion Upper Extremity Range of Motion Assessment Within Functional Limits OT Strength Comments Strength Comments Unable to tolerate testing d/t back pain OT- Coordination Assessment Upper Extremity Finger to Nose Test Within Functional Limits Finger Tapping Test Within Functional Limits OT-Muscle Tone Assessment Muscle Tone WNL Yes OT Sensation Assessment Edema Edema Absent M9 OT- IP Assessment and Plan Start: 11/05/20 10:39 Freq: Status: Active Protocol: Document 11/08/20 16:18 [facility] (Rec: 07/15/21 16:26 [facility] [id number]) OT Summary Assessment and Plan Potential Rehabilitation Potential Excellent Analytic Complexity at Evaluation Moderate Summary OT Impairments Pain,Strength,Balance, Functional Mobility,Grooming, Dressing,Toileting,Bathing, Toilet Transfers,Shower Transfers,Activity Tolerance Progress Towards Goals Progressing Toward Goals Assessment Summary Pt making improvement for ADL and functional mobility needs. Pt would benefit from short rehab stay versus home with assist, however pt states does not have anyone to assist her at home. Goals Grooming Goal Independent Dressing Goal Independent Toileting Goal Independent Bathing Goal Independent Toilet Transfer Goal Independent Shower Transfer Goal Independent Days to Meet Goals 10 Frequency of Treatment Frequency Of Treatment Once a Day Treatment Plan OT Treatment Plan ADL Training,Functional Mobility,Patient/Family Education,Discharge Planning Discharge Recommendations OT Discharge Recommendations Home vs SNF Other Discharge Recommendations If having to go home , recommend home with home health. Ideally best for pt to go to skilled rehab as she is a fall risk as she states has fallen two times recently. Transportation Needs at Discharge Private Vehicle,Wheelchair/ Cabulance
[2020-11-08 12:00] VITALS: BP 146/72; PULSE 72; RESP 17; TEMP 36.1; O2SAT 93
--- NOTE | 2020-11-08 12:26 | PT.IPTN ---
Current Diagnoses COVID-19 (11/03/20) Physical Therapy Treatment Note M2 PT-IP Current Condition Start: 11/03/20 15:14 Freq: Status: Active Protocol: Document 11/03/20 14:02 AB (Rec: 11/03/20 16:01 AB [id number]) Physical Therapy Current Condition Current Condition Evaluation Date 11/03/20 Treatment Diagnosis weakness Onset Date 11/03/20 Precautions Lumbar Precautions Log Roll,No Twisting,Limit Bending,Lifting Restriction of 10 lbs Other Precautions falls; Covid precautions M3 PT-IP Subjective Start: 11/03/20 15:14 Freq: Status: Active Protocol: Document 11/08/20 12:01 SP (Rec: 11/08/20 12:58 SP [id number]) Subjective Physical Therapy Visit Type Type Treatment Note Visit Start Time 12:01 Visit Stop Time 12:26 Total Visit Minutes 25 Number of VOLUNTEER FIREFIGHTER Visits 2 Physical Therapy Visit Comments Patient Comments Pt willing to work with therapy even though not premedicated at time of tx. Pt feels still is not moving well, has no support at home, prefers to go go SNF to get stronger before going home. Patient Goals Wants to go to SNF to get stronger. Therapy Pain Assessment Pain When Pain Assessed At Rest Pain Present Pain Present Pain Reported Location back Intensity 6 Scale Used 6/10 pain at rest, 7/10 during mobility Description Aching,Sharp,Spasm Pain Behaviors Facial Grimacing,Wincing Pain Management Techniques Modification of Treatment,Re- positioning M4 PT-IP Mobility and Gait Start: 11/03/20 15:14 Freq: Status: Active Protocol: Document 11/08/20 12:01 SP (Rec: 11/08/20 12:58 SP [id number]) PT-Bed Mobility Assessment Rolling Type of Rolling Log Rolling,Bilateral Level of Assist Standby Assistance Supine to Sit Supine to Sit Standby Assistance,Bedrails Sit to Supine Sit to Supine Minimal Assistance,Bedrails Scooting Scooting to Edge of Bed Standby Assistance PT-Transfer Assessment Sit to and From Stand Sit to and from Stand Standby Assistance,Use of Upper Extremities Equipment Transfer Assistive Device Gait Belt,Front Wheeled Walker Orthotic/Prosthetic Devices or Brace: No Transfers Transfer Destination Bed,Chair,Toilet Transfer Technique pt ambulated using FWW Transfer Ability Level of Assist Standby Assistance,Use of Upper Extremities Comments Mobility Comments Pt complete LR to R using bed rails, R SL>sitting using BUE and bed rails, scoot to EOB sBA. Sit< > stand sBA with use of BUE FWW and 4WW, cued for proper brake mgt for safety in case needs for standing balance with verbalized understanding. Pt able to walk further distance in hallway 140 ft using 4WW with improved stride and foot clearance and safety pacing, occasional cuing for chest lift to decrease TS slouch with statement of helped decrease LB tension pull. Pt was able to complete ascend/descend 1 platform 8 steps in room using FWW w/ Min A x1, unable to complete 3 has at home to enter mob home due to pain and decreased LE strength. Pt required use of bathroom before returning to bed SBA using 4WW and proper brake mgt . Pt completed sit>supine with Min A for LE support onto bed required while using bed rails in sidelying, then able to LR to L and center self via bridge technique and use of bed rails. Pt had call light and all needs in reach before left, nurse in room providing pain meds when left. VOLUNTE[employer] FIREFIGHTER discussed with pt and nurse then caremanagem when left room, she still decreased in strength for bed mobility and physical assist for stair mgt demonstrating not able to return home independently at this time without support, of which doesn't have. Gait Assessment Gait Gait Assistance Required: Standby Assistance Distance (Feet) 140 Able to Maintain Weight Bearing Status Yes During Gait Assistive Devices Assistive Device Gait Belt,Front Wheeled Walker Orthotic/Prosthetic Devices or Brace: No Gait Deviations General Gait Pattern Decreased Stride Length,Flexed Trunk Factors Limiting Gait Function Factors Limiting Gait Function Decreased Activity Tolerance, Decreased Strength,Pain Comments Gait Comments see mobility comments Stair Climbing Assessment Evaluation Level of Assist On Stairs Minimal Assistance,1 Person Assistance Devices Stair Climbing Assistive Devices Front Wheel Walker Technique/Endurance Stair Climbing Direction Ascend and Descend Stair Climbing Technique Step to Step Number of Steps Climbed 1 Stair Climbing Set # Repetitions (reps) 1 Comments Stair Climbing Comments see mobility comments PT-Balance Assessment Sitting Balance and Reactions Static Sitting Balance Ability Good Dynamic Sitting Balance Ability Fair Standing Balance and Reactions Static Standing Balance Ability Good Dynamic Standing Balance Ability Good Device Used FWW Comments Other Balance Tests/Deviations/Treatment her back pain and LE strength : interferes with her functional mobility independence. M5 PT-IP Objective Assessments Start: 11/03/20 15:14 Freq: Status: Active Protocol: Document 11/03/20 14:02 AB (Rec: 11/03/20 16:01 AB [id number]) Orientation Orientation/Cognition Level of Alertness Alert Orientation Name,Situation Language Function Ability No Deficits Noted Safety Awareness Decreased Safety Awareness Gross Range of Motion Lower Extremity ROM Assessment Within Functional Limits Strength Lower Extremity Strength Assessment Bilaterally Impaired Hip 3-/5 Knee 3+/5 Muscle Tone Muscle Tone WNL Yes M6 PT-IP Treatment Start: 11/03/20 15:14 Freq: Status: Active Protocol: Document 11/08/20 12:01 SP (Rec: 11/08/20 12:58 SP [id number]) Physical Therapy Treatment Education Education Provided Precautions,Safety M7 PT-IP Assessment and Plan Start: 11/03/20 15:14 Freq: Status: Active Protocol: Document 11/08/20 12:01 SP (Rec: 11/08/20 12:58 SP [id number]) PT Summary Assessment and Plan Potential Rehabilitation Potential Fair Status of Condition at Evaluation Evolving Summary Impairments Pain,ROM,Strength,Balance,Bed Mobility,Transfers,Gait, Activity Tolerance Progress Towards Goals Progressing Toward Goals,Slow Progress due to Pain,Slow Progress due to Activity Tolerance Assessment Summary Pt requires SBA during most of mobility sup>sit, sit<> stand , gait, Min A during Sit>sup and stair mgt. Pt would benefit from SNF rehab to improve strength for functional independence. Will continue to assess progress. Goals Bed Mobility Goal Independent Transfer Goal Independent,Front Wheeled Walker Gait Goal Independent,Front Wheel Walker ,Four Wheel Walker Gait Distance 100 feet Other Goals up and down 3 steps with hand held assist , min assist Days to Meet Goals 7 Frequency of Treatment Frequency Of Treatment Once a Day Treatment Plan Physical Therapy Treatment Plan Bed Mobility Training,Transfer Training,Gait Training, Therapeutic Exercise,Balance Retraining,Discharge Planning, Hot or Cold Pack,Neuromuscular Re-ed Other Recommendations and Next Treatment Standing ex, further distance Focus gait fWW or 4WW has at home, 3 PF steps w/ FWW. Assess standing dynamic balance, perform repeated STS for LE strengthening. Precautions Other Precautions Log Roll,No Twisting, Bending, Lifting Restrictiions to 10 lbs, falls and covid precautions. Recommendations To Nursing Amount of Assist Needed Standby Assistance,1 Person Assist Discharge Recommendations PT Discharge Recommendations SNF Rehab Transportation Needs at Discharge Private Vehicle,Wheelchair/ Cabulance
[2020-11-08] MEDS: INSULIN LISPRO 100 UNIT/ML 3ML VIAL SUBCUT ×2 (12:29→17:35)
--- NOTE | 2020-11-08 13:02 | CM.DPNOTE ---
DCP Cont Spoke w/Yuki at [facility] beds; they do not have bed openings until early-mid next week Spoke w/September at [facility]; administrators continue to discuss policy re: recent COVID-19+ patients and patient cannot be considered for admission until policy is decided upon Meanwhile, patient progressing w/PT according to ADJUDICATION SPECIALIST [facility], it appears patient may need to DC home w/ HH since no facility secured at this time JW
--- NOTE | 2020-11-08 13:54 | PC.NURSE ---
Patient given vicodin for pain to back, and this has been helpful. She worked with physical therapy and did have some issues with stairs. Patient may be going to a skill nursing facility. She has a cough but ls noted to be clear upon ausculation.
[2020-11-08] MEDS: LOSARTAN 25 MG TABLET 50 MG PO (14:35)
[2020-11-08 16:15] VITALS: BP 122/76; PULSE 79; RESP 16; TEMP 37.1; O2SAT 93
[2020-11-08 16:58] LABS: COVID19 - ADMIT (NP swab/PCR) Negative (Negative)
--- NOTE | 2020-11-08 18:10 | P.PN_ITS ---
Subjective Subjective Date Patient Seen: 11/08/20 Time Patient Seen: 18:10 Interval history: This is a 70-year-old female admitted with lumbar back pain secondary to a compression fracture that has been difficult to control as well as COVID-19 pneumonia with acute respiratory failure. Was working today to find a COVID positive long-term, however repeat testing was again negative today x3. She was taken off of isolation precautions. Doing well and continues to mobilize with PT but patient lives alone. She continues to have some low back pain today after working with PT. Awaiting bed for SNF currently. Exam Vital Signs (past 8 hours): - 11/08/20 12:00 11/08/20 16:15 Temperature 97.0 F L 98.7 F Pulse Rate 72 79 Respiratory Rate 17 16 Blood Pressure 146/72 H 122/76 Pulse Oximetry 93 93 Oxygen Delivery Method Room Air Oxygen Flow Rate 0 Narrative Exam Narrative: GENERAL APPEARANCE: Chronically ill-appearing, obese female with BMI of 33.2 in no acute distress. SKIN: Inspection of the skin reveals no rashes, ulcerations or petechiae. HEENT: Normocephalic atraumatic, extraocular muscles are intact, oropharynx is clear and mucous membranes are moist, neck is supple without adenopathy NECK: Supple and symmetric. There was no thyroid enlargement, and no tenderness, or masses were felt. CHEST: Normal AP diameter and normal contour without any kyphoscoliosis. LUNGS: Auscultation of the lungs revealed bibasilar rhonchi without wheezing. CARDIOVASCULAR: There was a regular rate and rhythm without any murmurs, gallops, rubs. Peripheral pulses were 2+ and symmetric. ABDOMEN: Soft and nontender with normal bowel sounds. No ascites was noted. MUSCULOSKELETAL: tenderness lumbar spine. EXTREMITIES: No cyanosis, clubbing or edema. NEUROLOGIC: Alert and oriented x 3. Normal affect. Strength is grossly +5/5 in the Upper Extremities and Lower Extremities Bilaterally but limited by pain. Objective Labs Result Diagrams: 11/05/20 05:23 11/05/20 05:23 Labs: Laboratory Results - last 24 hr 11/08/20 15:35 SARS-CoV-2 (PCR) Negative [facility] Medical History Concord's disease Arthritis Asthma Chronic cough CKD (chronic kidney disease), stage III Diabetes Edema GERD (gastroesophageal reflux disease) Hiatal hernia HLD (hyperlipidemia) HTN (hypertension) Incontinence Interstitial lung disease Nasal polyp Neuropathy Pneumonia Polymyositis Sarcoidosis SCC (squamous cell carcinoma) Surgical History H/O wrist surgery History of arthroplasty of left knee History of arthroplasty of right knee Hx of bilateral cataract extraction Hx of cholecystectomy Hx of hernia repair Hx of tonsillectomy Status post correction of deviated nasal septum Social History household members: none Smoking Status: Never smoker alcohol intake: current Assessment & Plan Assessment & Plan narrative: 70-year-old female admitted to the hospital for acute hypoxic respiratory failure and lumbar compression fracture with difficult to control pain limiting mobility. 1. Acute respiratory failure secondary to COVID 19 pneumonia, resolved -patient with recent diagnosis of COVID pneumonia, positive testing on admission. Repeat testing negative today (now x2 and 24 hours apart). Taken off of isolation yesterday. Continue to try to find long-term placement. - hypoxemia now resolved. discontinued decadrone and remdesevir. -patient on low-dose prednisone typically, have now resumed. -doubt bacterial pneumonia, IV antibiotics deferred 2. Lumbar compression fracture -PT OT consultation -continue oral Hydromorphone -Tylenol 975 t.i.d. as needed -continue Lidoderm patch -continue cyclobenzaprine -now that repeat COVID testing is negative x72 hours may be able to transfer to a nearby SNF. 3 Hypertension -continue losartan. Elevated BP today again will increase to 50 mg daily. Added gabapentin as well. 4 Acute kidney injury, resolved -likely related to dehydration from her diarrhea -improved with rehydration. -will avoid NSAIDs at this time 5 Interstitial lung disease -chronic 6 Sarcoidosis -chronic, continue prednisone, cellcept. 7 Hyperlipidemia -continue statin Patient reports she is DNR DNI Patient reports her neighbor Michael Belcher is her surrogate decision maker, will note that in her record accordingly Continue PT/OT. Medically ready for SNF, pending bed at this time. Quality VTE Deep Vein Thrombosis/Pulmonary Embolism Present on Admission: No
[2020-11-08] MEDS: SENNOSIDES 8.6 MG TABLET 17.2 MG PO (20:36)
[2020-11-08] MEDS: ATORVASTATIN 20 MG TABLET 10 MG PO (20:36)
[2020-11-08 20:40] VITALS: BP 138/72; PULSE 78; RESP 18; TEMP 36.8; O2SAT 95
[2020-11-09] VITALS (8 sets, daily range): BP systolic 127–169; BP diastolic 67–92; PULSE 79–92; RESP 16–18; TEMP 36.2–36.9; O2SAT 93–98
--- NOTE | 2020-11-09 03:49 | PC.NURSE ---
Patient is alert and oriented. Breath sounds CTA with RA sat of 96%. Continues with intermittent, moist, non productive cough. Denied SOB. HRR. Denied nausea. BT present and is passing flatus but has not had BM since 11/05. Continues to have some urinary urgency and stress incontinence but denies dysuria. Able to move self in bed and gets up to bathroom with SBA + walker. Chronic back pain but stated pain was 5/10 and tolerable; declined pain meds. Wearing bilateral DEBBIE's + calf SCD's. Fall risk score is high and bed alarm is activated. Is now complaining of 7/10 sharp back pain so medicated with Vicodin.
[2020-11-09] MEDS: HYDROCODONE/ACET 5/325 TABLET 2 TAB PO ×3 (03:58→15:49)
[2020-11-09] MEDS: polyethylene glycoL 3350 17 GM POWD.PACK PO (09:40)
[2020-11-09] MEDS: MYCOPHENOLATE MOFETIL 500 MG TABLET 750 MG PO ×2 (09:40→20:11)
[2020-11-09] MEDS: OXYBUTYNIN 5 MG TABLET PO ×3 (09:40→20:10)
[2020-11-09] MEDS: DOCUSATE 100 MG CAPSULE PO ×2 (09:41→20:10)
[2020-11-09] MEDS: LOSARTAN 25 MG TABLET 50 MG PO (09:41)
[2020-11-09] MEDS: GABAPENTIN 600 MG TABLET PO ×3 (09:41→20:11)
[2020-11-09] MEDS: predniSONE 1 MG TABLET 4 MG PO (09:44)
[2020-11-09] MEDS: MONTELUKAST 10 MG TABLET PO (09:44)
[2020-11-09] MEDS: ENOXAPARIN 40 MG/0.4 ML SYRINGE SUBCUT (09:44)
[2020-11-09] MEDS: ACYCLOVIR 400 MG TABLET PO ×2 (09:44→20:10)
[2020-11-09] MEDS: LIDOCAINE PATCH 1 EACH ADH..PATCH TOP (09:45)
--- NOTE | 2020-11-09 10:33 | PT-IP ANOTE ---
Pt refused stating I am not feeling well, I have a headache, my back hurts and I'm nauseous. Spoke with RN and RN stating pt has not been feeling well this morning. Will check back with pt later today.
--- NOTE | 2020-11-09 10:55 | OT.IPNOTE ---
Pt states in 11/03 penaloza, nauseous, and not wanting to get up at this time for OT treatment. Notified nursing of pt's request for pain medications. To check on the pt in PM.
--- NOTE | 2020-11-09 11:30 | PC.NURSE ---
Assess- Patient having 7/10 pain to her lower back and hips. She is flushed in her cheeks, but is afebrile. Stated feeling dizzy, put back to bed and blood pressure 160s/90s. She is sleeping now and appears to be more comfortable. Patient has a chronic cough since being here.
--- NOTE | 2020-11-09 12:33 | PM.PN.1 ---
Subjective Subjective Date Patient Seen: 11/09/20 Time Patient Seen: 12:33 Interval history: This is a 70-year-old female admitted with lumbar back pain secondary to a compression fracture that has been difficult to control as well as COVID-19 pneumonia with acute respiratory failure. Was working today to find a COVID positive penitentiary, however repeat testing was again negative today x3. She was taken off of isolation precautions. Doing well and continues to mobilize with PT but patient lives alone. She continues to have some low back pain today after working with PT. Awaiting bed for SNF currently. Exam Vital Signs (past 8 hours): - 11/09/20 07:44 11/09/20 09:43 11/09/20 11:18 Temperature 97.2 F L 98.5 F Pulse Rate 79 88 Respiratory Rate 16 16 Blood Pressure 141/67 H 163/88 H 169/83 H Pulse Oximetry 93 96 Oxygen Delivery Method Room Air Oxygen Flow Rate 0 Narrative Exam Narrative: GENERAL APPEARANCE: Chronically ill-appearing, obese female with BMI of 33.2 in no acute distress. SKIN: Inspection of the skin reveals no rashes, ulcerations or petechiae. HEENT: Normocephalic atraumatic, extraocular muscles are intact, oropharynx is clear and mucous membranes are moist, neck is supple without adenopathy NECK: Supple and symmetric. There was no thyroid enlargement, and no tenderness, or masses were felt. CHEST: Normal AP diameter and normal contour without any kyphoscoliosis. LUNGS: Auscultation of the lungs revealed bibasilar rhonchi without wheezing. CARDIOVASCULAR: There was a regular rate and rhythm without any murmurs, gallops, rubs. Peripheral pulses were 2+ and symmetric. ABDOMEN: Soft and nontender with normal bowel sounds. No ascites was noted. MUSCULOSKELETAL: tenderness lumbar spine. EXTREMITIES: No cyanosis, clubbing or edema. NEUROLOGIC: Alert and oriented x 3. Normal affect. Strength is grossly +5/5 in the Upper Extremities and Lower Extremities Bilaterally but limited by pain. Objective Labs Result Diagrams: 11/05/20 05:23 11/05/20 05:23 Labs: Laboratory Results - last 24 hr 11/08/20 15:35 SARS-CoV-2 (PCR) Negative [facility] Medical History Effie's disease Arthritis Asthma Chronic cough CKD (chronic kidney disease), stage III Diabetes Edema GERD (gastroesophageal reflux disease) Hiatal hernia HLD (hyperlipidemia) HTN (hypertension) Incontinence Interstitial lung disease Nasal polyp Neuropathy Pneumonia Polymyositis Sarcoidosis SCC (squamous cell carcinoma) Surgical History H/O wrist surgery History of arthroplasty of left knee History of arthroplasty of right knee Hx of bilateral cataract extraction Hx of cholecystectomy Hx of hernia repair Hx of tonsillectomy Status post correction of deviated nasal septum Social History household members: none Smoking Status: Never smoker alcohol intake: current Assessment & Plan Assessment & Plan narrative: 70-year-old female admitted to the hospital for acute hypoxic respiratory failure and lumbar compression fracture with difficult to control pain limiting mobility. 1. Acute respiratory failure secondary to COVID 19 pneumonia, resolved -patient with recent diagnosis of COVID pneumonia, positive testing on admission. Repeat testing negative today (now x2 and 24 hours apart). Taken off of isolation yesterday. Continue to try to find penitentiary placement. - hypoxemia now resolved. discontinued decadrone and remdesevir. -patient on low-dose prednisone typically, have now resumed. -doubt bacterial pneumonia, IV antibiotics deferred 2. Lumbar compression fracture -PT OT consultation -continue oral Hydromorphone -Tylenol 975 t.i.d. as needed -continue Lidoderm patch -continue cyclobenzaprine -now that repeat COVID testing is negative x72 hours may be able to transfer to a nearby SNF. 3 Hypertension -continue losartan. Elevated BP today again will increase to 50 mg daily. Added gabapentin as well. 4 Acute kidney injury, resolved -likely related to dehydration from her diarrhea -improved with rehydration. -will avoid NSAIDs at this time 5 Interstitial lung disease -chronic 6 Sarcoidosis -chronic, continue prednisone, cellcept. 7 Hyperlipidemia -continue statin Patient reports she is DNR DNI Patient reports her neighbor Michael Belcher is her surrogate decision maker, will note that in her record accordingly Continue PT/OT. Medically ready for SNF, pending bed at this time. Quality VTE Deep Vein Thrombosis/Pulmonary Embolism Present on Admission: No
--- NOTE | 2020-11-09 13:28 | OT.IPNOTE ---
Pt refused agin in PM due to headache. Pt wanting to sleep and agreed to shower tomorrow for OT session.
--- NOTE | 2020-11-09 14:06 | CM.DPNOTE ---
DCP Update Placed calls to [facility]- No Jie Cushing- LM C [facility]- No Jospehine Drake Home- LM [place]- LM Initial COVID-19 + status continues to be a barrier to SNF placement. Will continue placement efforts. Dr Ambrocio aware of barrier to placement and requests continued efforts; patient may be DC home w/ HH tomorrow 7. JW
--- NOTE | 2020-11-09 14:52 | PT.IPTN ---
Current Diagnoses COVID-19 (11/03/20) Physical Therapy Treatment Note M2 PT-IP Current Condition Start: 11/03/20 15:14 Freq: Status: Active Protocol: Document 11/03/20 14:02 AB (Rec: 11/03/20 16:01 AB [id number]) Physical Therapy Current Condition Current Condition Evaluation Date 11/03/20 Treatment Diagnosis weakness Onset Date 11/03/20 Precautions Lumbar Precautions Log Roll,No Twisting,Limit Bending,Lifting Restriction of 10 lbs Other Precautions falls; Covid precautions M3 PT-IP Subjective Start: 11/03/20 15:14 Freq: Status: Active Protocol: Document 11/09/20 14:44 CLB (Rec: 11/09/20 15:00 CLB [id number]) Subjective Physical Therapy Visit Type Type Treatment Note Visit Start Time 14:42 Visit Stop Time 14:52 Total Visit Minutes 8 Number of APPLICATION SERVICES MANAGER Visits 1 Physical Therapy Visit Comments Patient Comments Pt wanting to refuse tx but RN asked pt to get up to chair, pt agreed. Therapy Pain Assessment Pain When Pain Assessed During Mobility Pain Present Pain Present Pain Reported M4 PT-IP Mobility and Gait Start: 11/03/20 15:14 Freq: Status: Active Protocol: Document 11/09/20 14:44 CLB (Rec: 11/09/20 15:00 CLB [id number]) PT-Bed Mobility Assessment Rolling Type of Rolling Roll to Right Level of Assist Standby Assistance Supine to Sit Supine to Sit Standby Assistance,Bedrails Scooting Scooting to Edge of Bed Standby Assistance PT-Transfer Assessment Sit to and From Stand Sit to and from Stand Standby Assistance,Use of Upper Extremities Equipment Transfer Assistive Device Gait Belt,Front Wheeled Walker Orthotic/Prosthetic Devices or Brace: No Transfers Transfer Destination Chair Transfer Technique pt ambulated using FWW Transfer Ability Level of Assist Standby Assistance,Use of Upper Extremities Comments Mobility Comments Pt transferred to chair SBA. RN present to give meds, call light and all needs within reach. Gait Assessment Comments Gait Comments pt refused ambulation M5 PT-IP Objective Assessments Start: 11/03/20 15:14 Freq: Status: Active Protocol: Document 11/03/20 14:02 AB (Rec: 11/03/20 16:01 AB [id number]) Orientation Orientation/Cognition Level of Alertness Alert Orientation Name,Situation Language Function Ability No Deficits Noted Safety Awareness Decreased Safety Awareness Gross Range of Motion Lower Extremity ROM Assessment Within Functional Limits Strength Lower Extremity Strength Assessment Bilaterally Impaired Hip 3-/5 Knee 3+/5 Muscle Tone Muscle Tone WNL Yes M6 PT-IP Treatment Start: 11/03/20 15:14 Freq: Status: Active Protocol: Document 11/08/20 12:01 SP (Rec: 11/08/20 12:58 SP [id number]) Physical Therapy Treatment Education Education Provided Precautions,Safety M7 PT-IP Assessment and Plan Start: 11/03/20 15:14 Freq: Status: Active Protocol: Document 11/09/20 14:44 CLB (Rec: 11/09/20 15:00 CLB [id number]) PT Summary Assessment and Plan Potential Rehabilitation Potential Fair Status of Condition at Evaluation Evolving Summary Impairments Pain,ROM,Strength,Balance,Bed Mobility,Transfers,Gait, Activity Tolerance Progress Towards Goals Progressing Toward Goals,Slow Progress due to Pain,Slow Progress due to Activity Tolerance Assessment Summary Pt willing to only transfer as she states she is not feeling well today. Pt is SBA for bed mobility and transfer to chair with use of FWW. Goals Bed Mobility Goal Independent Transfer Goal Independent,Front Wheeled Walker Gait Goal Independent,Front Wheel Walker ,Four Wheel Walker Gait Distance 100 feet Other Goals up and down 3 steps with hand held assist , min assist Days to Meet Goals 7 Frequency of Treatment Frequency Of Treatment Once a Day Treatment Plan Physical Therapy Treatment Plan Bed Mobility Training,Transfer Training,Gait Training, Therapeutic Exercise,Balance Retraining,Discharge Planning, Hot or Cold Pack,Neuromuscular Re-ed Other Recommendations and Next Treatment Standing ex, further distance Focus gait fWW or 4WW has at home, 3 PF steps w/ FWW. Assess standing dynamic balance, perform repeated STS for LE strengthening. Precautions Other Precautions Log Roll,No Twisting, Bending, Lifting Restrictiions to 10 lbs, falls and covid precautions. Recommendations To Nursing Amount of Assist Needed Standby Assistance,1 Person Assist Discharge Recommendations PT Discharge Recommendations SNF Rehab Transportation Needs at Discharge Private Vehicle,Wheelchair/ Cabulance
[2020-11-09] MEDS: ATORVASTATIN 20 MG TABLET 10 MG PO (20:10)
[2020-11-09] MEDS: SENNOSIDES 8.6 MG TABLET 17.2 MG PO (20:10)
[2020-11-10] MEDS: HYDROCODONE/ACET 5/325 TABLET 2 TAB PO ×3 (00:01→13:57)
[2020-11-10 04:15] VITALS: BP 150/77; PULSE 94; RESP 18; TEMP 36.7; O2SAT 95
[2020-11-10 08:00] VITALS: BP 146/80; PULSE 94; RESP 17; TEMP 36.9; O2SAT 92
[2020-11-10] MEDS: ACYCLOVIR 400 MG TABLET PO (08:44)
[2020-11-10] MEDS: MYCOPHENOLATE MOFETIL 500 MG TABLET 750 MG PO (08:44)
[2020-11-10] MEDS: GABAPENTIN 600 MG TABLET PO ×2 (08:44→13:57)
[2020-11-10] MEDS: DOCUSATE 100 MG CAPSULE PO (08:44)
[2020-11-10] MEDS: MONTELUKAST 10 MG TABLET PO (08:44)
[2020-11-10] MEDS: predniSONE 1 MG TABLET 4 MG PO (08:44)
[2020-11-10] MEDS: LIDOCAINE PATCH 1 EACH ADH..PATCH TOP (08:46)
[2020-11-10] MEDS: ENOXAPARIN 40 MG/0.4 ML SYRINGE SUBCUT (08:46)
[2020-11-10] MEDS: LOSARTAN 25 MG TABLET PO (08:46)
[2020-11-10] MEDS: OXYBUTYNIN 5 MG TABLET PO ×2 (08:46→13:57)
--- NOTE | 2020-11-10 09:37 | PT.IPTN ---
Current Diagnoses COVID-19 (11/03/20) Physical Therapy Treatment Note M2 PT-IP Current Condition Start: 11/03/20 15:14 Freq: Status: Active Protocol: Document 11/03/20 14:02 AB (Rec: 11/03/20 16:01 AB [id number]) Physical Therapy Current Condition Current Condition Evaluation Date 11/03/20 Treatment Diagnosis weakness Onset Date 11/03/20 Precautions Lumbar Precautions Log Roll,No Twisting,Limit Bending,Lifting Restriction of 10 lbs Other Precautions falls; Covid precautions M3 PT-IP Subjective Start: 11/03/20 15:14 Freq: Status: Active Protocol: Document 11/10/20 09:14 CLB (Rec: 11/10/20 10:59 CLB [id number]) Subjective Physical Therapy Visit Type Type Treatment Note Visit Start Time 09:14 Visit Stop Time 09:37 Total Visit Minutes 23 Number of IT TECHNICAL SUPPORT SPECIALIST Visits 4 Physical Therapy Visit Comments Patient Comments Pt willing to work with therapy, states she is feeling better today. Therapy Pain Assessment Pain When Pain Assessed During Mobility Pain Present Pain Present Pain Reported Location back Intensity 6 Scale Used Numeric (0 - 10) Pain Behaviors Facial Grimacing,Wincing Pain Management Techniques Modification of Treatment,Re- positioning,Timing of Activity with Medications M4 PT-IP Mobility and Gait Start: 11/03/20 15:14 Freq: Status: Active Protocol: Document 11/10/20 09:14 CLB (Rec: 11/10/20 10:59 CLB [id number]) PT-Bed Mobility Assessment Rolling Type of Rolling Roll to Right Level of Assist Standby Assistance Supine to Sit Supine to Sit Standby Assistance,Bedrails Sit to Supine Sit to Supine Minimal Assistance,Bedrails Scooting Scooting to Edge of Bed Standby Assistance PT-Transfer Assessment Sit to and From Stand Sit to and from Stand Standby Assistance,Use of Upper Extremities Equipment Transfer Assistive Device Gait Belt,Front Wheeled Walker Orthotic/Prosthetic Devices or Brace: No Transfers Transfer Destination Bed Transfer Technique pt ambulated using FWW Transfer Ability Level of Assist Standby Assistance,Use of Upper Extremities Comments Mobility Comments Pt requiring SBA for LR, supine to sit and scooting to EOB. Pt stood SBA and ambulates in alvarenga w/FWW/SBA ~ 100ft. Pt returned to room requiring SBA to sit on EOB and then Min A of LE's onto bed, from sidelying pt is able to roll to center of bed and bridge for good positioning. Pt then performed HS, AP's and QS. Pt left in bed with SCD's on, bed alarm on and call light and all needs within reach. Gait Assessment Gait Gait Assistance Required: Standby Assistance Distance (Feet) 100 Able to Maintain Weight Bearing Status Yes During Gait Assistive Devices Assistive Device Gait Belt,Front Wheeled Walker Orthotic/Prosthetic Devices or Brace: No Gait Deviations General Gait Pattern Decreased Stride Length,Flexed Trunk Factors Limiting Gait Function Factors Limiting Gait Function Decreased Activity Tolerance, Decreased Strength,Pain Comments Gait Comments see mobility section M5 PT-IP Objective Assessments Start: 11/03/20 15:14 Freq: Status: Active Protocol: Document 11/03/20 14:02 AB (Rec: 11/03/20 16:01 AB [id number]) Orientation Orientation/Cognition Level of Alertness Alert Orientation Name,Situation Language Function Ability No Deficits Noted Safety Awareness Decreased Safety Awareness Gross Range of Motion Lower Extremity ROM Assessment Within Functional Limits Strength Lower Extremity Strength Assessment Bilaterally Impaired Hip 3-/5 Knee 3+/5 Muscle Tone Muscle Tone WNL Yes M6 PT-IP Treatment Start: 11/03/20 15:14 Freq: Status: Active Protocol: Document 11/10/20 09:14 CLB (Rec: 11/10/20 11:01 CLB [id number]) Physical Therapy Treatment Exercises Exercises Ankle Pumps,Quad Sets,Heel Slides Education Education Provided Precautions M7 PT-IP Assessment and Plan Start: 11/03/20 15:14 Freq: Status: Active Protocol: Document 11/10/20 09:14 CLB (Rec: 11/10/20 10:59 CLB [id number]) PT Summary Assessment and Plan Potential Rehabilitation Potential Fair Status of Condition at Evaluation Evolving Summary Impairments Pain,ROM,Strength,Balance,Bed Mobility,Transfers,Gait, Activity Tolerance Progress Towards Goals Progressing Toward Goals Assessment Summary Pt is SBA for all mobility with the exception of requiring Min A of LE's onto bed. Pt able to ambulate ~ 100ft w/FWW/SBA. Goals Bed Mobility Goal Independent Transfer Goal Independent,Front Wheeled Walker Gait Goal Independent,Front Wheel Walker ,Four Wheel Walker Gait Distance 100 feet Other Goals up and down 3 steps with hand held assist , min assist Days to Meet Goals 7 Frequency of Treatment Frequency Of Treatment Once a Day Treatment Plan Physical Therapy Treatment Plan Bed Mobility Training,Transfer Training,Gait Training, Therapeutic Exercise,Balance Retraining,Discharge Planning, Hot or Cold Pack,Neuromuscular Re-ed Precautions Other Precautions Log Roll,No Twisting, Bending, Lifting Restrictions to 10 lbs, falls and covid precautions. Recommendations To Nursing Amount of Assist Needed Standby Assistance,1 Person Assist Discharge Recommendations PT Discharge Recommendations Home with Assistance,Home Health,Home vs SNF Transportation Needs at Discharge Private Vehicle,Wheelchair/ Cabulance
[2020-11-10 12:00] VITALS: BP 148/92; PULSE 89; RESP 17; TEMP 36.5; O2SAT 95
--- NOTE | 2020-11-10 13:54 | OT.IP.TRT ---
Current Diagnoses COVID-19 (11/03/20) Occupational Therapy Treatment Note M2 OT-IP Current Condition Start: 11/05/20 10:39 Freq: Status: Active Protocol: Document 11/05/20 10:40 CGR (Rec: 11/05/20 10:52 CGR [id number]) Occupational Therapy Current Condition Current Condition Evaluation Date 11/05/20 Treatment Diagnosis L2 compression fx, back pain, covid +, recent admit with same complaints Diagnosis Onset Date 11/03/20 Post Operative Precautions Lumbar Precautions Log Roll,No Twisting,Limit Bending,Lifting Restriction of 10 lbs,Gait Belt above Incisional Area M3 OT- IP Subjective and Pain Start: 11/05/20 10:39 Freq: Status: Active Protocol: Document 11/10/20 14:11 [facility] (Rec: 11/10/20 14:25 [facility] [id number]) OT- Subjective Occupational Therapy Visit Type Type Treatment Note Visit Start Time 13:16 Visit Stop Time 13:54 Total Visit Minutes 38 Occupational Therapy Visit Comments Patient Comments Pt agreed to shower. Patient/Caregiver Goals To go to skilled rehab, as pt feels that she is weak and still having back pain. OT Pain Assessment Pain When Pain Assessed At Rest Pain Present Pain Present Pain Reported M4 OT- IP ADL's Start: 11/05/20 10:39 Freq: Status: Active Protocol: Document 11/10/20 14:11 [facility] (Rec: 11/10/20 14:25 [facility] [id number]) OT RGJ-Lwig-Hcjvmte General Evaluation Self-Feeding Ability Independent OT ADL-Dressing General Eval Lower Body Dressing Ability Minimal Assistance Areas Needing Assistance Underpants/Brief Comments OT Dressing Comments Pt still needing JAKE to help get her brief over her feet in addition to use of legal arbitrator. OT ADL-Toileting General Evaluation Toileting Ability Standby Assistance Comments OT Toileting Comments Pt able to reach appriopriately to wipe today. Pt will benefit from a BSC at home as her toilet is a little distance away. Pt also plans on continuing to wear a disposable brief. OT ADL-Bathing Bathing Type Bathing Type Shower General Evaluation Bathing Ability Moderate Assistance Areas Needing Assistance Wash/Dry Back,Wash/Dry Perineal Area,Wash/Dry Lower Extremities Comments OT Bathing Comments Pt doing a little better from a few days ago for the shower. Pt mainly needing assist for her back and assist for pericare needs. Pt still needing CGA for balance when trying to use a long towel to assist to clean her legs for pericare needs. Pt aware will need assist and plans on asking a friend to assist. M5 OT- IP IADL's Start: 11/05/20 10:39 Freq: Status: Active Protocol: Document 11/05/20 10:40 CGR (Rec: 11/05/20 10:52 CGR [id number]) OT-Instrumental Activities of Daily Living Deficits IADL Deficits Identified Deficits Home Safety Awareness Awareness of Need for Assistance at Home Good Awareness Ability to Problem Solve Emergency Able to Problem Solve Situations Medication Management Medication Management No Deficits Identified Money Management Money Management No Deficits Identified Meal Preparation Meal Preparation Caregiver Provides Assist Booth Manager Booth Manager Caregiver Provides Assist Driving Driving Concerns Identified Regarding Safety M6 OT- IP Functional Cognition Start: 11/05/20 10:39 Freq: Status: Active Protocol: Document 11/08/20 16:18 CCC (Rec: 11/08/20 16:26 [facility] [id number]) Cognitive Factors Limiting Selfcare Function Cognitive Comments Cognitive Assessment Comments Intact. M7 OT- IP Mobility and Balance Start: 11/05/20 10:39 Freq: Status: Active Protocol: Document 11/10/20 14:11 CCC (Rec: 11/10/20 14:25 [facility] [id number]) OT- Bed Mobility Assessment Rolling Level of Assistance Standby Assistance Supine to Sit Supine to Sit Assist Standby Assistance Sit to Supine Sit to Supine Assist Standby Assistance Scooting Scooting to Edge of Bed Standby Assistance OT-Transfer Assessment Sit to and From Stand Sit to and from Stand Standby Assistance Transfers Transfer Ability Standby Assistance Technique Transfer Destination Bed,Chair,Toilet Transfer Technique Stand Step Pivot Devices Transfer Assistive Devices Gait Belt,Front Wheeled Walker Comments Mobility Comments Bed lowered as able to tilt the bed to the height she has a home. Pt able to do her bed mobility on her own with increased time. OT- Gait Assessment Comments Gait Ability Comments SBA with FWW for level surfaces. OT- Balance Assessment Sitting Balance and Reactions Static Sitting Balance Ability Normal Dynamic Sitting Balance Ability Good Standing Balance and Reactions Static Standing Balance Ability Fair M8 OT- IP Objective Assessments Start: 11/05/20 10:39 Freq: Status: Active Protocol: Document 07/12/21 10:40 CGR (Rec: 07/12/21 10:52 CGR [id number]) OT Gross Range of Motion Upper Extremity Range of Motion Assessment Within Functional Limits OT Strength Comments Strength Comments Unable to tolerate testing d/t back pain OT- Coordination Assessment Upper Extremity Finger to Nose Test Within Functional Limits Finger Tapping Test Within Functional Limits OT-Muscle Tone Assessment Muscle Tone WNL Yes OT Sensation Assessment Edema Edema Absent M9 OT- IP Assessment and Plan Start: 11/05/20 10:39 Freq: Status: Active Protocol: Document 11/10/20 14:11 [facility] (Rec: 11/10/20 14:25 [facility] [id number]) OT Summary Assessment and Plan Potential Rehabilitation Potential Excellent Analytic Complexity at Evaluation Moderate Summary OT Impairments Pain,Strength,Balance, Functional Mobility,Grooming, Dressing,Toileting,Bathing, Toilet Transfers,Shower Transfers,Activity Tolerance Progress Towards Goals Progressing Toward Goals Assessment Summary Pt ablet o shower today however will still need assist for percare needs and LB dressing needs. Pt still would greatly benefit from short skilled rehab stay versus home with asisst home health OT and bath aid. Goals Grooming Goal Independent Dressing Goal Independent Toileting Goal Independent Bathing Goal Independent Toilet Transfer Goal Independent Shower Transfer Goal Independent Days to Meet Goals 9 Frequency of Treatment Frequency Of Treatment Once a Day Treatment Plan OT Treatment Plan ADL Training,Functional Mobility,Patient/Family Education,Discharge Planning Discharge Recommendations OT Discharge Recommendations Home vs SNF Transportation Needs at Discharge Private Vehicle,Wheelchair/ Cabulance
[2020-11-10 15:35] VITALS: BP 125/73; PULSE 78; RESP 18; TEMP 37.4
--- NOTE | 2020-11-10 16:19 | CM.DPNOTE ---
DC Note Patient has been DC home today; unfortunately, no SNF could be secured d/t patient's recent COVID+ status. Meanwhile, patient's physical abilities have improved greatly. Patient has been cleared from a therapy stand point to return home w/ HH services Met w/yuko w/ROB [facility], reviewed plan for today. Reviewed IMM. Patient does not want to appeal her DC, she would like to work on returning home w/ HH services. She asks that neighbor Surinder be called to take her home. Placed call to Shima kaur/ Elizabeth PEREZ, she requested HH order, F2F, H+P and DC Summary if available. Faxed all except for DC Summary. Patient will receive a call Thursday and Elizabeth expects to have an RN see her Thursday Plan: DC expected home this evening once neighbor Surinder can arrive (?) [facility] services in place JW
[2020-11-10] MEDS: INSULIN LISPRO 100 UNIT/ML 3ML VIAL SUBCUT (16:28)
[2020-11-10 16:31] VITALS: PULSE 64; RESP 20; O2SAT 96
[2020-11-10] MEDS: ALBUTEROL 2.5 MG/3 ML NEB (ADULT) INH (16:31)
--- NOTE | 2020-11-10 17:56 | P.DS_ITS ---
History of Present Illness History of Present Illness Chief complaint: Weakness Narrative: Per Dr. Hilton: Patient is a 70-year-old female with a history of asthma, chronic cough, bronchiectasis, GERD, hypertension, interstitial lung disease who was admitted to the hospital 2 weeks ago with lumbar compression fracture and COVID pneumonia. The patient was discharged home on oral antibiotics. Since discharge she is working with her primary care provider for an admission to [facility] given her persistent pain. Patient is scheduled to go to [facility] on Thursday. She was at home and had significant pain. She was unable to ambulate because of her pain. She presented to the emergency room for evaluation. In the emergency room the patient was noted to be hypoxic with activity. She desaturated to 86% saturation. She is also remaining COVID positive. During her prior hospital stay 2 weeks ago she did receive 1 dose of Decadron and 1 dose of remdesivir. However she did not complete the full course of therapy. Patient is admitted to the hospital again for recurrent back pain, COVID pneumonia, and hypoxic respiratory failure. Discharge Providers Provider Date of admission: 11/03/20 16:17 Discharge Date: 11/10/20 Primary care physician: Rufina Stockton DO Consults: 11/03/20 12:52 Consult to INSTRUCTIONAL SUPPORT TECHNICIAN - Gaming Surveillance Observer Stat Comment: supposed to go to [facility] thursday Consult to Physical Therapy Evaluate & Treat Comment: Physician Instructions: Evaluate and Treat 11/03/20 17:29 Consult to Dietitian, Adult Routine Comment: Reason For Exam: Reflexed from admission 11/03/20 18:09 Consult to Discharge Planning Routine Comment: Consult to Occupational Therapy Evaluate & Treat Comment: Physician Instructions: Evaluate and treat Consult to Physical Therapy Evaluate & Treat Comment: Physician Instructions: Evaluate and Treat 11/10/20 15:13 Consult to Home Health Routine Comment: Reason For Exam: Home health Upon DC Discharge provider: Juvenal Goodman MD Summary Hospital Course Discharge Diagnosis: 1. Acute respiratory failure secondary to COVID pneumonia 2. Lumbar compression fracture 3. Hypertension 4. ULISSES 5. Interstitial lung disease 6. Sarcoidosis 7. Hyperlipidemia 8. History of polymyositis Hospital Course: Ms. Small was initially admitted with back pain from a compression fracture and hypoxemia secondary to COVID pneumonia. She was treated for COVID and she subsequently had three negative tests. She worked with PT and was noted to have some instability due to her pain. She was given pain control medications with moderate benefit. She has had multiple admissions for her compression fracture and pain control, and case management attempted to find an accepting SNF; however given her COVID history no SNF would accept. She ultimately did have some improvement in her mobility and was discharged home with home health. Exam Vital Signs (past 8 hours): - 11/10/20 12:00 11/10/20 15:35 11/10/20 16:31 Temperature 97.7 F 99.3 F Pulse Rate 89 78 64 Respiratory Rate 17 18 20 Blood Pressure 148/92 H 125/73 Pulse Oximetry 95 96 Oxygen Delivery Method Room Air Oxygen Flow Rate 0 Narrative Exam Narrative: GENERAL APPEARANCE: Chronically ill-appearing, no acute distress LUNGS: slight wheezes bilaterally CARDIOVASCULAR: regular rate and rhythm without any murmurs ABDOMEN: Soft and nontender with normal bowel sounds. No ascites was noted. MUSCULOSKELETAL: tenderness lumbar spine. NEUROLOGIC: Alert and oriented x 3. Normal affect. Strength is grossly +5/5 in the Upper Extremities and Lower Extremities Bilaterally but limited by pain. Objective Labs Result Diagrams: 11/05/20 05:23 11/05/20 05:23 [facility] Medical History [place]'s disease Arthritis Asthma Chronic cough CKD (chronic kidney disease), stage III Diabetes Edema GERD (gastroesophageal reflux disease) Hiatal hernia HLD (hyperlipidemia) HTN (hypertension) Incontinence Interstitial lung disease Nasal polyp Neuropathy Pneumonia Polymyositis Sarcoidosis SCC (squamous cell carcinoma) Surgical History H/O wrist surgery History of arthroplasty of left knee History of arthroplasty of right knee Hx of bilateral cataract extraction Hx of cholecystectomy Hx of hernia repair Hx of tonsillectomy Status post correction of deviated nasal septum Social History household members: none Smoking Status: Never smoker alcohol intake: current Discharge Plan Discharge Plan Patient Disposition: Home Health Service Provider Discharge Comment: Ms. Small was admitted with back pain for a compression fracture and COVID pneumonia. Her COVID pneumonia improved and she had three negative tests. She continue to have back pain. We attempted to find ing a residential facility to help with rehabilitation and physical therapy. However none were willing to accept. Because this was not an option, she will be discharged home with physical therapy and should follow closely with her primary care doctor. Discharge orders & Medications Prescriptions: Continued cyclobenzaprine 10 mg tablet 10 mg PO TID PRN (Reason: muscle spasm) Qty: 10 RF: 0 acetaminophen 325 mg tablet 500 mg PO Q6HR PRN (Reason: Pain, Mild (1-3)) RF: 0 cetirizine 10 mg Tablet 10 mg PO DAILY RF: 0 folic acid 400 mcg Tablet 0.4 mg PO DAILY RF: 0 calcium carbonate-vitamin D2 600 mg calcium- 200 unit Tablet 1 tab PO DAILY RF: 0 Probiotic 20 billion cell Capsule 20,000 mmu cells PO DAILY RF: 0 cefdinir 300 mg capsule 300 mg PO BID Qty: 20 RF: 0 hydromorphone 2 mg tablet 2 mg PO Q6H PRN (Reason: pain) Qty: 30 RF: 0 lidocaine 4 % adhesive patch,medicated 1 patch topical DAILY Qty: 15 RF: 0 losartan 50 mg Tablet 25 mg PO DAILY RF: 0 prednisone 5 mg Tablet 4 mg PO DAILY RF: 0 acyclovir 400 mg Tablet 400 mg PO BID RF: 0 mycophenolate mofetil [CellCept] 500 mg Tablet 750 mg PO BID RF: 0 gabapentin 300 mg Capsule 600 mg PO TID RF: 0 montelukast 10 mg Tablet 10 mg PO BEDTIME RF: 0 metoclopramide HCl 10 mg Tablet 10 mg PO TID RF: 0 rosuvastatin [Crestor] 10 mg Tablet 10 mg PO DAILY RF: 0 Basaglar KwikPen U-100 Insulin 100 unit/mL (3 mL) Insulin Pen 15 unit SUBCUT QAM RF: 0 potassium chloride 20 mEq Tablet Extended Release 20 meq PO DAILY RF: 0 docusate sodium [DOK] 100 mg Capsule 100 mg PO BID Qty: 40 RF: 0 Follow up/Referrals: Rufina Stockton DO [Primary Care Provider] - Visit Report/Discharge Packet Instructions: Vertebral Compression Fracture, DI for COVID-19 (Suspected or Confirmed ) Discharge Data Primary Care Provider: Rufina Stockton Quality VTE Deep Vein Thrombosis/Pulmonary Embolism Present on Admission: No MIPS - DC The patient has current or prior documentation of left ventricular ejection fraction (LVEF) less than 40%, or moderate or severely depressed left ventricular systolic function.: No
--- NOTE | 2020-11-10 19:02 | PC.NURSE ---
Evening Shift/Discharge Note- Patient discharged home per hospitalist orders. Called patients ride to inform him of impending discharge. Discharge instructions and education reviewed with patient and signed. IV line removed earlier in the day. NUB CARD TENDER helped patient to change clothes and to pack up all personal belongings in the room. Patient left via wheelchair with NUB CARD TENDER and all peresonal belongings to met ride at ER entrance at 1750.
== END 2020-11-10 17:50 | disposition home or self-care (01) | DRG 177 ==
LOC: ED 15:46 → AC 16:17
PROVIDERS: Internal Medicine; Admitting Provider Internal Medicine; Emergency Provider Emergency Medicine; PCP Family Medicine; Referring Provider Emergency Medicine; Visit Provider Internal Medicine
DX: U07.1 COVID-19 (principal); J12.82 Pneumonia due to coronavirus disease 2019; J96.01 Acute respiratory failure with hypoxia; M48.56XA Collapsed vertebra, not elsewhere classified, lumbar region, initial encounter for fracture; N17.9 Acute kidney failure, unspecified; E11.65 Type 2 diabetes mellitus with hyperglycemia; E78.5 Hyperlipidemia, unspecified; D86.0 Sarcoidosis of lung; J47.9 Bronchiectasis, uncomplicated; K21.9 Gastro-esophageal reflux disease without esophagitis; I10 Essential (primary) hypertension; E86.0 Dehydration; T38.0X5A Adverse effect of glucocorticoids and synthetic analogues, initial encounter; Z79.4 Long term (current) use of insulin
CPT/HCPCS: 36415; 71045; 72072; 72100; 72131; 80048; 80053; 82550; 82962; 83605; 83690; 83880; 84145; 84484; 85025; 87040; 87635; 93005; 93010; 94640; 94760; 94762; 97110; 97116; 97162; 97166; 97530; 97535; 99284; C9803; J1100; J1650; J1815; J2405; J7613

== ENCOUNTER 2020-11-14 05:46 | Observation (INO) | payer MEDICARE, BC, SELFPAY ==
[2020-11-03 17:22] VITALS: BMI 33.1
[2020-11-14] VITALS (24 sets, daily range): BP systolic 142–194; BP diastolic 72–91; PULSE 75–95; RESP 15–22; TEMP 36.1–37; O2SAT 92–100; BMI 38.0; BMI 32.2
--- NOTE | 2020-11-14 06:36 | DI.RAD.S_ITS ---
PROCEDURE: XR CHEST 1V INDICATIONS: cough, prior covid infection TECHNIQUE: One view of the chest was acquired. COMPARISON: [facility], CR, XR CHEST 1V, 11/03/2020, 14:36. FINDINGS: Surgical changes and devices: Cholecystectomy clips.. Lungs and pleura: Patchy opacities noted in the left lung concerning for pneumonia No pleural effusions or pneumothorax. Mediastinum: Mediastinal contours appear normal. Heart size is normal. Bones and chest wall: No suspicious bony lesions. Overlying soft tissues appear unremarkable. IMPRESSION: Patchy left lung opacities concerning for pneumonia. Dictated by: Hiral Mercado MD, PhD on 11/14/2020 at 8:34 Approved by: Hiral Mercado MD, PhD on 11/14/2020 at 8:34
[2020-11-14 06:47] LABS: Add Manual Diff / Slide Review NO; Basophils Absolute Auto 100 /uL (0-100); Eosinophils Absolute Auto 500 /uL (0-450); Eosinophils Percent Auto 4.1 % (2-4); Hematocrit 42.3 % (36-46); Hemoglobin 13.3 g/dL (12.0-16.0); Lymphocytes Absolute Auto 1600 /uL (1100-4500); Lymphocytes Percent Auto 12.9 % (25-40); Mean Corpuscular HGB Conc 31.3 % (30-36); Mean Corpuscular Hemoglobin 28.2 PG (26-34); Mean Corpuscular Volume 90.1 fL (80-100); Monocytes Absolute Auto 1300 /uL (0-900); Monocytes Percent Auto 10.9 % (3-14); Neutrophils Absolute Auto 8600 /uL (1500-7000); Neutrophils Percent Auto 71.1 % (50-75); Platelet Count 250 X10^3/uL (150-400); Red Cell Distribution Width 14.6 % (11.6-14.8); White Blood Cell Count 12.1 X10^3/uL (4.5-11.0)
[2020-11-14 07:00] LABS: Alanine Aminotransferase 13 IU/L (<35); Albumin 3.7 g/dL (3.5-5.0); Albumin Globulin Ratio 1.2 (1.0-2.8); Alkaline Phosphatase 110 U/L (38-126); Aspartate Aminotransferase 19 IU/L (14-36); BUN Creatinine Ratio 17.8 (6-22); Bilirubin Total 0.5 mg/dL (0.2-1.3); Blood Urea Nitrogen 13 mg/dL (7-17); Calcium 10.6 mg/dL (8.4-10.2); Carbon Dioxide 30 mmol/L (22-32); Chloride 100 mmol/L (98-107); Estimated Glomerular Filt Rate > 60.0 mL/min (>60); Glucose 147 mg/dL (80-110); HEMOLYSIS 16 (0-50); Potassium 4.4 mmol/L (3.4-5.1); Sodium 137 mmol/L (137-145); Total Protein 6.7 g/dL (6.3-8.2)
[2020-11-14] MEDS: HYDROMORPHONE 2 MG TABLET PO ×2 (07:06→21:19)
--- NOTE | 2020-11-14 08:44 | ED_ITS ---
HPI - Recheck/Abnormal Lab/Rx General Chief Complaint: Recheck/Abnormal Lab/Rx Stated Complaint: extreme pain, several falls, difficulty walkiing Time Seen by Provider: 11/14/20 05:54 Source: patient Mode of arrival: Wheelchair Limitations: no limitations History of Present Illness HPI narrative: Patient is a 70-year-old female who presents with difficulty walking multiple falls and pain at night. She lives alone she was discharged on 11/10/2020 after being admitted for COVID pneumonia back pain. She was supposed to go to [facility] however it appears they did night her because she was COVID positive despite having being treated for COVID and having COVID negative test afterwards. She has a 82 year old neighbor who helps her. However she still has difficulty at night getting up they do not stay with her. She is supposed to have home health but they not been able to come yet. Related Data Home Medications Medication Instructions Recorded Confirmed acyclovir 400 mg tablet 400 mg PO BID 06/27/19 11/14/20 gabapentin 300 mg capsule 600 mg PO TID 06/27/19 11/14/20 insulin glargine 100 unit/mL (3 15 unit SUBCUT QAM 06/27/19 11/14/20 mL) subcutaneous pen (Basaglar KwikPen U-100 Insulin) losartan 50 mg tablet 25 mg PO QAM 06/27/19 11/14/20 metoclopramide HCl 10 mg tablet 10 mg PO TID 06/27/19 11/14/20 montelukast 10 mg tablet 10 mg PO BEDTIME 06/27/19 11/14/20 mycophenolate mofetil 500 mg 750 mg PO BID 06/27/19 11/14/20 tablet (CellCept) potassium chloride 20 mEq 20 meq PO QAM 06/27/19 11/14/20 tablet,extended release prednisone 5 mg tablet 4 mg PO QAM 06/27/19 11/14/20 rosuvastatin 10 mg tablet (Crestor) 10 mg PO BEDTIME 06/27/19 11/14/20 acetaminophen 325 mg tablet 500 mg PO Q6HR PRN 10/24/20 11/14/20 calcium carb-ergocalciferol (vit 1 tab PO DAILY 10/24/20 11/14/20 D2) 600 mg calcium-200 unit tablet cetirizine 10 mg tablet 10 mg PO QPM 10/24/20 11/14/20 folic acid 400 mcg tablet 0.4 mg PO QAM 10/24/20 11/14/20 lactobacillus comb no.10 20 20,000 mmu cells PO QAM 10/24/20 11/14/20 billion cell capsule (Probiotic) Previous Rx's Medication Instructions Recorded docusate sodium 100 mg capsule 100 mg PO BID #40 cap 07/12/19 (DOK) cyclobenzaprine 10 mg tablet 10 mg PO TID PRN #10 tab 10/21/20 hydromorphone 2 mg tablet 2 mg PO Q6H PRN #30 tab 10/25/20 lidocaine 4 % topical patch 1 patch TOPICAL DAILY #15 ea 10/25/20 Allergies Allergy/AdvReac Type Severity Reaction Status Date / Time Penicillins Allergy Severe Swelling Verified 11/14/20 09:18 of Lip/Tongue/Throat amoxicillin Allergy Intermediate Hives Verified 11/14/20 09:18 oxycodone Allergy Intermediate Hives Verified 11/14/20 09:18 Sulfa (Sulfonamide Allergy Intermediate Hives Verified 11/14/20 09:18 Antibiotics) Review of Systems Review of Systems Narrative: GENERAL: Denies chills, fatigue, malaise, fever, sweats, travel HEENT: Denies sinus pain, ear pain, sore throat, difficulty swallowing, neck pa in RESPIRATORY: Denies dyspnea, cough, wheezing, hemoptysis, sputum. CARDIOVASCULAR: Denies chest pain, palpitations, orthopnea, edema GASTROINTESTINAL: Denies nausea, vomiting, abdominal pain, diarrhea, constipation, melena. : Denies dysuria, frequency, incontinence, hematuria, urinary retention, flank pain. MUSCULOSKELETAL: Ongoing back pain SKIN: No rash, no erythema, no pruritus NEUROLOGIC: Denies weakness, dizziness, headache, numbness, change in speech, confusion PSYCHIATRIC: No concerning psychosocial issues. 12 point review of systems is negative except for those stated above and HPI Patient History Medical History [place]'s disease Arthritis Asthma Chronic cough CKD (chronic kidney disease), stage III Diabetes Edema GERD (gastroesophageal reflux disease) Hiatal hernia HLD (hyperlipidemia) HTN (hypertension) Incontinence Interstitial lung disease Nasal polyp Neuropathy Pneumonia Polymyositis Sarcoidosis SCC (squamous cell carcinoma) Surgical History H/O wrist surgery History of arthroplasty of left knee History of arthroplasty of right knee Hx of bilateral cataract extraction Hx of cholecystectomy Hx of hernia repair Hx of tonsillectomy Status post correction of deviated nasal septum Social History household members: none Smoking Status: Never smoker alcohol intake: current Smoking Status: Never smoker alcohol intake frequency: holidays/special occasions only Substance Use Type: does not use Exam Initial Vital Signs Initial Vital Signs: Vital Signs Temperature 98.5 F 11/14/20 06:05 Pulse Rate 89 11/14/20 06:05 Respiratory Rate 22 11/14/20 06:05 Blood Pressure 190/87 H 11/14/20 06:05 Pulse Oximetry 96 11/14/20 06:05 GENERAL: Renetta 70-year-old female and in no acute distress. HEENT: Head atraumatic,EOMI, pupils reactive, face symmetric, moist mucous membranes CARDIOVASCULAR: Regular rate and rhythm without murmurs, rubs or gallops. RESPIRATORY: Breath sounds equal bilaterally, no wheezes rales or rhonchi. ABDOMEN: Soft, nontender. Normoactive bowel sounds all 4 quadrants. No guarding or rebound. EXTREMITIES: Normal range of motion, no clubbing or edema. Neurovascularly intact NEUROLOGICAL: Alert and oriented x4.Normal gait and speech SKIN: Warm, dry, no laceration, no petechiae, no rashes or lesions. Course Orders Ordered: ED Orders 11/14/20 08:45 Urinalysis and Microscopic Stat Urine Culture Stat 11/14/20 09:43 COVID19 - ADMIT (MIXING SUPERVISOR swab/PCR) Stat Acetaminophen (Acetaminophen 325 Mg Tablet) 650 mg PO Q6HR PRN PRN Reason: Fever/Mild Pain (1-3) Last Admin: 11/14/20 13:12 Dose: 650 mg Documented by: ELIZABETH Acyclovir (Acyclovir 400 Mg Tablet) 400 mg PO BID HUMERA Last Admin: 11/14/20 13:14 Dose: 400 mg Documented by: ELIZABETH Cyclobenzaprine HCl (Cyclobenzaprine 10 Mg Tablet) 10 mg PO TID PRN PRN Reason: Muscle Spasm Last Admin: 11/14/20 13:12 Dose: 10 mg Documented by: ELIZABETH Docusate Sodium (Docusate 100 Mg Capsule) 100 mg PO BID [facility] Last Admin: 11/14/20 13:19 Dose: 100 mg Documented by: ELIZABETH Enoxaparin Sodium (Enoxaparin 40 Mg/0.4 Ml Syringe) 40 mg SUBCUT DAILY [facility] Gabapentin (Gabapentin 600 Mg Tablet) 600 mg PO TID [facility] Last Admin: 11/14/20 14:51 Dose: Not Given Documented by: Admin: 11/14/20 13:14 Dose: 600 mg Documented by: ELIZABETH Hydromorphone HCl (Hydromorphone 2 Mg Tablet) 2 mg PO Q6HR PRN PRN Reason: Pain, Severe (7-10) Metoclopramide HCl (Metoclopramide Hcl 10 Mg Tablet) 10 mg PO TID [facility] Last Admin: 11/14/20 14:50 Dose: Not Given Documented by: Admin: 11/14/20 13:14 Dose: 10 mg Documented by: ELIZABETH Mycophenolate Mofetil (Mycophenolate Mofetil 500 Mg Tablet) 750 mg PO BID [facility] Last Admin: 11/14/20 13:15 Dose: 750 mg Documented by: ELIZABETH Naloxone HCl (Naloxone 0.4 Mg/Ml Vial) 0.2 mg IV Q2MIN PRN PRN Reason: Opiate Reversal Prednisone (Prednisone 1 Mg Tablet) 4 mg PO DAILY [facility] Last Admin: 11/14/20 13:14 Dose: 4 mg Documented by: ELIZABETH Discontinued Medications Hydromorphone HCl (Hydromorphone 2 Mg Tablet) 2 mg PO NOW ONE Stop: 11/14/20 06:22 Last Admin: 11/14/20 07:06 Dose: 2 mg Documented by: GERA Losartan Potassium (Losartan 25 Mg Tablet) 25 mg PO NOW ONE Stop: 11/14/20 12:46 Last Admin: 11/14/20 13:26 Dose: 25 mg Documented by: ELIZABETH Nitrofurantoin Macrocrystals (Nitrofurantoin Er 100 Mg Capsule) 100 mg PO NOW ONE Stop: 11/14/20 09:21 Last Admin: 11/14/20 09:38 Dose: 100 mg Documented by: ELIZABETH Potassium Chloride (Potassium Chloride 20 Meq Tab) 20 meq PO NOW ONE Stop: 11/14/20 12:46 Last Admin: 11/14/20 13:19 Dose: 20 meq Documented by: ELIZABETH Vital Signs Vital signs: Vital Signs - 8 hr 11/14/20 09:39 11/14/20 10:00 11/14/20 10:31 Pulse Rate 80 Respiratory Rate Blood Pressure 168/81 H 182/86 H Pulse Oximetry 97 11/14/20 10:34 11/14/20 11:00 11/14/20 11:30 Pulse Rate 81 78 87 Respiratory Rate Blood Pressure 170/83 H Pulse Oximetry 97 98 98 11/14/20 11:31 11/14/20 12:00 11/14/20 12:30 Pulse Rate 84 80 82 Respiratory Rate Blood Pressure 175/91 H 182/88 H 194/90 H Pulse Oximetry 98 98 100 11/14/20 14:48 11/14/20 14:49 Pulse Rate 83 82 Respiratory Rate 16 Blood Pressure 194/85 H Pulse Oximetry 94 97 MDM - Recheck/Abnormal Lab/Rx Lab Data Result diagrams: 11/14/20 06:40 11/14/20 06:40 Labs: Lab Results 11/14/20 11/14/20 11/14/20 Range/Units 06:40 06:40 08:45 WBC 12.1 H (4.5-11.0) X10^3/uL RBC 4.70 (4.0-5.2) X10^6/uL Hgb 13.3 (12.0-16.0) g/dL Hct 42.3 (36-46) % MCV 90.1 (80-100) fL MCH 28.2 (26-34) PG MCHC 31.3 (30-36) % RDW 14.6 (11.6-14.8) % Plt Count 250 (150-400) X10^3/uL Neut % (Auto) 71.1 (50-75) % Lymph % (Auto) 12.9 L (25-40) % Lamar % (Auto) 10.9 (3-14) % Eos % (Auto) 4.1 H (2-4) % Baso % (Auto) 1.0 (0-2) % Neut # (Auto) 8600 H (3241-2035) /uL Lymph # (Auto) 1600 (2451-2825) /uL Lamar # (Auto) 1300 H (0-900) /uL Eos # (Auto) 500 H (0-450) /uL Baso # (Auto) 100 (0-100) /uL Sodium 137 (137-145) mmol/L Potassium 4.4 (3.4-5.1) mmol/L Chloride 100 (98-107) mmol/L Carbon Dioxide 30 (22-32) mmol/L BUN 13 (7-17) mg/dL Creatinine 0.73 (0.52-1.04) mg/dL Estimated GFR > 60.0 (>60) mL/min BUN/Creatinine Ratio 17.8 (6-22) Glucose 147 H (80-110) mg/dL Calcium 10.6 H (8.4-10.2) mg/dL Total Bilirubin 0.5 (0.2-1.3) mg/dL AST 19 (14-36) IU/L ALT 13 (<35) IU/L Alkaline Phosphatase 110 (38-126) U/L Total Protein 6.7 (6.3-8.2) g/dL Albumin 3.7 (3.5-5.0) g/dL Globulin 3.0 (1.7-4.1) g/dL Albumin/Globulin Ratio 1.2 (1.0-2.8) Urine Color Yellow Urine Appearance Clear Urine pH 5.5 (4.5-8.0) Ur Specific [place] <=1.005 (1.000-1.035) Urine Protein Trace H (Negative) Urine Glucose (UA) Negative (Negative) g/dL Urine Ketones Trace H (NEGATIVE) Urine Occult Blood Negative (Negative) Urine Nitrate Negative (Negative) Urine Bilirubin Negative (NEGATIVE) Urine Urobilinogen 0.2 (0.2) E.U./dL Ur Leukocyte Esterase 2+ H (NEGATIVE) Urine RBC None seen (0-5/HPF) Urine WBC 10-30/hpf H (0-5/HPF) Ur Squamous Epith Cells 1-5 /hpf (0-5/HPF) Urine Bacteria Moderate (10-30) H (None) Ur Culture Indicated? Specimen cultured SARS-CoV-2 (PCR) (Negative) 11/14/20 Range/Units 09:43 WBC (4.5-11.0) X10^3/uL RBC (4.0-5.2) X10^6/uL Hgb (12.0-16.0) g/dL Hct (36-46) % MCV (80-100) fL MCH (26-34) PG MCHC (30-36) % RDW (11.6-14.8) % Plt Count (150-400) X10^3/uL Neut % (Auto) (50-75) % Lymph % (Auto) (25-40) % Lamar % (Auto) (3-14) % Eos % (Auto) (2-4) % Baso % (Auto) (0-2) % Neut # (Auto) (7294-7435) /uL Lymph # (Auto) (8918-1494) /uL Lamar # (Auto) (0-900) /uL Eos # (Auto) (0-450) /uL Baso # (Auto) (0-100) /uL Sodium (137-145) mmol/L Potassium (3.4-5.1) mmol/L Chloride (98-107) mmol/L Carbon Dioxide (22-32) mmol/L BUN (7-17) mg/dL Creatinine (0.52-1.04) mg/dL Estimated GFR (>60) mL/min BUN/Creatinine Ratio (6-22) Glucose (80-110) mg/dL Calcium (8.4-10.2) mg/dL Total Bilirubin (0.2-1.3) mg/dL AST (14-36) IU/L ALT (<35) IU/L Alkaline Phosphatase (38-126) U/L Total Protein (6.3-8.2) g/dL Albumin (3.5-5.0) g/dL Globulin (1.7-4.1) g/dL Albumin/Globulin Ratio (1.0-2.8) Urine Color Urine Appearance Urine pH (4.5-8.0) Ur Specific [place] (1.000-1.035) Urine Protein (Negative) Urine Glucose (UA) (Negative) g/dL Urine Ketones (NEGATIVE) Urine Occult Blood (Negative) Urine Nitrate (Negative) Urine Bilirubin (NEGATIVE) Urine Urobilinogen (0.2) E.U./dL Ur Leukocyte Esterase (NEGATIVE) Urine RBC (0-5/HPF) Urine WBC (0-5/HPF) Ur Squamous Epith Cells (0-5/HPF) Urine Bacteria (None) Ur Culture Indicated? SARS-CoV-2 (PCR) Negative (Negative) Imaging Data Chest x-ray: Radiologist's Impression: PROCEDURE: XR CHEST 1V INDICATIONS: cough, prior covid infection TECHNIQUE: One view of the chest was acquired. COMPARISON: [facility], CR, XR CHEST 1V, 11/03/2020, 14:36. FINDINGS: Surgical changes and devices: Cholecystectomy clips.. Lungs and pleura: Patchy opacities noted in the left lung concerning for pneumonia No pleural effusions or pneumothorax. Mediastinum: Mediastinal contours appear normal. Heart size is normal. Bones and chest wall: No suspicious bony lesions. Overlying soft tissues appear unremarkable. IMPRESSION: Patchy left lung opacities concerning for pneumonia. Dictated by: Hiral Mercado MD, PhD on 11/14/2020 at 8:34 MDM Narrative Medical decision making narrative: Patient is found to have UTI with mild l eukocytosis started her on Macrobid based on allergies. She is afebrile and does not appear septic. [facility] states that [facility] will have a bed for her available tomorrow morning. She has had 4- COVID test. Her x-ray today shows persistent pneumonia however she is not clinically having signs or symptoms of pneumonia. , graciously accepts patient for observation untill found few room can be available Discharge Plan Departure Patient Disposition: Admitted as Observation Clinical Impression: Compression fracture of L2, Acute UTI Admit Date/Time: 11/14/20 15:11 Admit Provider: Juvenal Goodman
[2020-11-14 09:01] LABS: RBC Urine None Seen (0-5/HPF)
[2020-11-14 09:03] LABS: Appearance Urine UA CLEAR; Bilirubin Urine UA NEGATIVE (NEGATIVE); Color Urine UA YELLOW; Glucose Urine UA NEGATIVE (Negative); Ketones Urine UA TRACE (NEGATIVE); Leukocyte Esterase Urine UA 2+ (NEGATIVE); Nitrite Urine UA NEGATIVE (Negative); Occult Blood Urine UA NEGATIVE (Negative); Protein Urine UA TRACE (Negative); Specific Gravity Urine UA <=1.005 (1.000-1.035); Urobilinogen Urine UA 0.2 E.U./dL (0.2); pH Urine UA 5.5 (4.5-8.0)
[2020-11-14 09:06] LABS: Squamous Epithelial Cell Urine 1-5 /HPF (0-5/HPF); WBC Urine 10-30/HPF (0-5/HPF)
[2020-11-14 09:07] LABS: Bacteria Urine Moderate (10-30); Culture Indicated Urine Specimen Cultured
[2020-11-14] MEDS: NITROFURANTOIN ER 100 MG CAPSULE PO ×2 (09:38→21:19)
[2020-11-14 10:40] LABS: COVID19 - ADMIT (NP swab/PCR) Negative (Negative)
--- NOTE | 2020-11-14 12:43 | CM.SWNOTE ---
Addendum entered by Aziza Dixon 11/14/20 15:21: POLICE SURGEON Note POLICE SURGEON reviews tracker and it is reported that Hospitalist Dr. Goodman accepts patient as observational for patient's acceptance to [facility] tomorrow 11/15 in the morning. Plan: POLICE SURGEON to review the above with DCP in acute care for POC d/c planning upon patient's transfer to [facility] SNF rehab. TIAN Joseph Original Note: POLICE SURGEON Note POLICE SURGEON receives consult and meets with patient. Patient is 70 y/o female who presents to this ED with concern of extreme pain, GLFs and difficulty walking. Patient was d/c'd from acute care at this hospital on 11/10/20 after being admitted for Covid, pneumonia and back pain. Patient was previously accepted at [facility] but declined due to hx of Covid dx on 11/03/20. Patient has tested negative for covide on 11/05/20, 11/06/20, 11/08/20 and 11/14/20. Patient d/c'd on 11/10/20 with HH referral with [facility] but patient reports the services have not started yet since she has been home. At POLICE SURGEON's arrival to shift, [facility] has been reviewing patient for SNF rehab acceptance. Patient endorses that she needs a caregiver in the evening and needs the care of a SNF. Patient states her only supports are her elderly next door neighbor who cannot care for her at night. POLICE SURGEON discusses adding a caregiver to her POC at home and provides patient with resource guide. Patient endorses she is interested in going to SNF rehab in the interim. POLICE SURGEON discusses applying for Medicaid and POLICE SURGEON is to call [facility] for Medicaid referral for patient. POLICE SURGEON calls [facility] and leaves requesting return call. POLICE SURGEON calls September at [facility] and it is reported that patient can be accepted at [facility] tomorrow morning due to the pain medication she was provided this morning and willingness to accept the morning of 11/15/20. POLICE SURGEON reviews the above with ED provider Dr. Hernandez who indicates understanding and will call hospitalist to see if patient can admit upstairs rather than board in this ED. POLICE SURGEON to call other SNF rehabs for acceptance of patient today. Plan: POLICE SURGEON to seek other SNF rehab options or patient to d/c to [facility] tomorrow morning. POLICE SURGEON to fax PAS[facility], d/c summary, prescriptions, and signed med list. Aziza Dixon MSW
[2020-11-14] MEDS: CYCLOBENZAPRINE 10 MG TABLET PO (13:12)
[2020-11-14] MEDS: ACETAMINOPHEN 325 MG TABLET 650 MG PO (13:12)
[2020-11-14] MEDS: METOCLOPRAMIDE HCL 10 MG TABLET PO ×2 (13:14→21:19)
[2020-11-14] MEDS: ACYCLOVIR 400 MG TABLET PO ×2 (13:14→21:09)
[2020-11-14] MEDS: GABAPENTIN 600 MG TABLET PO ×2 (13:14→21:09)
[2020-11-14] MEDS: predniSONE 1 MG TABLET 4 MG PO (13:14)
[2020-11-14] MEDS: MYCOPHENOLATE MOFETIL 500 MG TABLET 750 MG PO ×2 (13:15→21:19)
[2020-11-14] MEDS: POTASSIUM CHLORIDE 20 MEQ TAB PO (13:19)
[2020-11-14] MEDS: DOCUSATE 100 MG CAPSULE PO ×2 (13:19→21:09)
[2020-11-14] MEDS: LOSARTAN 25 MG TABLET PO (13:26)
--- NOTE | 2020-11-14 17:39 | P.HP_ITS ---
History of Present Illness History of Present Illness Date Patient Seen: 11/14/20 Time Patient Seen: 15:00 Chief complaint: extreme pain, several falls, difficulty walkiing Narrative: Ms. Small is a 70W with PMH asthma, bronchiectasis, GERD, hypertension, ILD who has multiple recent admissions including for lumbar compression fracture and COVID pneumonia. She came back with hypoxemia and was found to be COVID positive and diagnosed with respiratory failure from COVID pneumonia. She was just discharged a few days ago. Unfortunately, she had been clearly physically below her baseline, and SNF placement was attempted. Three negative COVID tests were obtained in efforts to have an SNF accept the patient. However they all declined. Patient was discharged home. She lives alone, and has only an elderly friend for support. She could not afford 24 hour care. She was ordered for home health. However she presents back to the hospital because she can't take care of herself and can't get up alone at night and get to the bathroom from bed. From a respiratory standpoint she feels at her baseline. In the ED workup was done, she was found to be slightly hypertensive. She had an elevated WBC and workup showed a positive UA consistent with UTI. She was given a dose of macrobid. SW worked on SNF while patient in ED and patient has SNF arranged for tomorrow morning 11/15, she will be observed overnight in the hospital and arranged for discharged tomorrow. She is agreeable with this plan. Patient History Medical History [place]'s disease Arthritis Asthma Chronic cough CKD (chronic kidney disease), stage III Diabetes Edema GERD (gastroesophageal reflux disease) Hiatal hernia HLD (hyperlipidemia) HTN (hypertension) Incontinence Interstitial lung disease Nasal polyp Neuropathy Pneumonia Polymyositis Sarcoidosis SCC (squamous cell carcinoma) Surgical History H/O wrist surgery History of arthroplasty of left knee History of arthroplasty of right knee Hx of bilateral cataract extraction Hx of cholecystectomy Hx of hernia repair Hx of tonsillectomy Status post correction of deviated nasal septum Family & Social History Social History: household members none Safety & Behavioral: Feels Safe in Current Yes Environment Tobacco & Substance use: Smoking Status Never smoker alcohol intake current alcohol intake frequency holiday/special occasion Substance Use Type does not use Meds Home Medications and Allergies Home Medications Medication Instructions Recorded Confirmed Type acyclovir 400 mg tablet 400 mg PO BID 06/27/19 11/14/20 History gabapentin 300 mg capsule 600 mg PO TID 06/27/19 11/14/20 History insulin glargine 100 unit/mL (3 15 unit SUBCUT QAM 06/27/19 11/14/20 History mL) subcutaneous pen (Basaglar KwikPen U-100 Insulin) losartan 50 mg tablet 25 mg PO QAM 06/27/19 11/14/20 History metoclopramide HCl 10 mg tablet 10 mg PO TID 06/27/19 11/14/20 History montelukast 10 mg tablet 10 mg PO BEDTIME 06/27/19 11/14/20 History mycophenolate mofetil 500 mg 750 mg PO BID 06/27/19 11/14/20 History tablet (CellCept) potassium chloride 20 mEq 20 meq PO QAM 06/27/19 11/14/20 History tablet,extended release prednisone 5 mg tablet 4 mg PO QAM 06/27/19 11/14/20 History rosuvastatin 10 mg tablet (Crestor) 10 mg PO BEDTIME 06/27/19 11/14/20 History docusate sodium 100 mg capsule 100 mg PO BID #40 cap 07/12/19 11/14/20 Rx (DOK) cyclobenzaprine 10 mg tablet 10 mg PO TID PRN #10 tab 10/21/20 11/14/20 Rx acetaminophen 325 mg tablet 500 mg PO Q6HR PRN 10/24/20 11/14/20 History calcium carb-ergocalciferol (vit 1 tab PO DAILY 10/24/20 11/14/20 History D2) 600 mg calcium-200 unit tablet cetirizine 10 mg tablet 10 mg PO QPM 10/24/20 11/14/20 History folic acid 400 mcg tablet 0.4 mg PO QAM 10/24/20 11/14/20 History lactobacillus comb no.10 20 20,000 mmu cells PO QAM 10/24/20 11/14/20 History billion cell capsule (Probiotic) hydromorphone 2 mg tablet 2 mg PO Q6H PRN #30 tab 10/25/20 11/14/20 Rx lidocaine 4 % topical patch 1 patch TOPICAL DAILY #15 ea 10/25/20 11/14/20 Rx Allergies Allergy/AdvReac Type Severity Reaction Status Date / Time Penicillins Allergy Severe Swelling Verified 11/14/20 09:18 of Lip/Tongue/Throat amoxicillin Allergy Intermediate Hives Verified 11/14/20 09:18 oxycodone Allergy Intermediate Hives Verified 11/14/20 09:18 Sulfa (Sulfonamide Allergy Intermediate Hives Verified 11/14/20 09:18 Antibiotics) Review of Systems Review of Systems Narrative: 14 systems reviewed and negative aside from what is noted in HPI, except as noted, she does note slight wheezing, she has back pain, and she feels generally weak Exam Vital Signs (past 8 hours): - 11/14/20 10:00 11/14/20 10:31 11/14/20 10:34 Pulse Rate 81 Respiratory Rate Blood Pressure 168/81 H 182/86 H Pulse Oximetry 97 11/14/20 11:00 11/14/20 11:30 11/14/20 11:31 Pulse Rate 78 87 84 Respiratory Rate Blood Pressure 170/83 H 175/91 H Pulse Oximetry 98 98 98 11/14/20 12:00 11/14/20 12:30 11/14/20 14:48 Pulse Rate 80 82 83 Respiratory Rate Blood Pressure 182/88 H 194/90 H Pulse Oximetry 98 100 94 11/14/20 14:49 11/14/20 16:22 Pulse Rate 82 82 Respiratory Rate 16 15 Blood Pressure 194/85 H 172/88 H Pulse Oximetry 97 99 Oxygen Delivery Method Room Air Narrative Exam Narrative: GENERAL APPEARANCE: Chronically ill-appearing, no acute distress. SKIN: no rashes noted HEENT: oropharynx is clear and mucous membranes are moist, PERRL NECK: no JVD, trachea is midline LUNGS: clear bilaterally with no wheezes, rhonchi, rales CARDIOVASCULAR: regular rate and rhythm without any murmurs ABDOMEN: Soft and nontender with normal bowel sounds. No organomegaly MUSCULOSKELETAL: tenderness in the lumbar spine EXTREMITIES: No cyanosis, clubbing or edema. moving all extremities NEUROLOGIC: Alert and oriented x 3. Normal affect. Strength is grossly +5/5 in the Upper Extremities and Lower Extremities Bilaterally but limited by pain. Objective Labs Result Diagrams: 11/14/20 06:40 11/14/20 06:40 Labs: Laboratory Results - last 24 hr 07/11/14/20 11/14/20 06:40 06:40 08:45 WBC 12.1 H RBC 4.70 Hgb 13.3 Hct 42.3 MCV 90.1 MCH 28.2 MCHC 31.3 RDW 14.6 Plt Count 250 Neut % (Auto) 71.1 Lymph % (Auto) 12.9 L [place] % (Auto) 10.9 Eos % (Auto) 4.1 H Baso % (Auto) 1.0 Neut # (Auto) 8600 H Lymph # (Auto) 1600 [place] # (Auto) 1300 H Eos # (Auto) 500 H Baso # (Auto) 100 Sodium 137 Potassium 4.4 Chloride 100 Carbon Dioxide 30 BUN 13 Creatinine 0.73 Estimated GFR > 60.0 BUN/Creatinine Ratio 17.8 Glucose 147 H Calcium 10.6 H Total Bilirubin 0.5 AST 19 ALT 13 Alkaline Phosphatase 110 Total Protein 6.7 Albumin 3.7 Globulin 3.0 Albumin/Globulin Ratio 1.2 Urine Color Yellow Urine Appearance Clear Urine pH 5.5 Ur Specific [place] <=1.005 Urine Protein Trace H Urine Glucose (UA) Negative Urine Ketones Trace H Urine Occult Blood Negative Urine Nitrate Negative Urine Bilirubin Negative Urine Urobilinogen 0.2 Ur Leukocyte Esterase 2+ H Urine RBC None seen Urine WBC 10-30/hpf H Ur Squamous Epith Cells 1-5 /hpf Urine Bacteria Moderate (10-30) H Ur Culture Indicated? Specimen cultured SARS-CoV-2 (PCR) 11/14/20 09:43 WBC RBC Hgb Hct MCV MCH MCHC RDW Plt Count Neut % (Auto) Lymph % (Auto) [place] % (Auto) Eos % (Auto) Baso % (Auto) Neut # (Auto) Lymph # (Auto) [place] # (Auto) Eos # (Auto) Baso # (Auto) Sodium Potassium Chloride Carbon Dioxide BUN Creatinine Estimated GFR BUN/Creatinine Ratio Glucose Calcium Total Bilirubin AST ALT Alkaline Phosphatase Total Protein Albumin Globulin Albumin/Globulin Ratio Urine Color Urine Appearance Urine pH Ur Specific [place] Urine Protein Urine Glucose (UA) Urine Ketones Urine Occult Blood Urine Nitrate Urine Bilirubin Urine Urobilinogen Ur Leukocyte Esterase Urine RBC Urine WBC Ur Squamous Epith Cells Urine Bacteria Ur Culture Indicated? SARS-CoV-2 (PCR) Negative Assessment & Plan Assessment & Plan narrative: Ms. Small is a 70W with multiple recent admissions now presenting due to inability to care for self at home due to weakness/deconditioning. 1. Generalized weakness, chronic -in setting of chronic illnesses she has, now worsened with recent covid pna and lumbar compression fractures -she has tried to care for self at home, but has little social support -previously attempt was made for SNF placement, but unfortunately she was refused despite having covid - x3, and being off precautions -once again covid is negative, cxray show infiltrates which is expected with recent disease and is not an indication she has pneumonia -SNF acceptance planned for 11/15 to [facility] for therapy 2. Lumbar compression fracture, chronic -no need for PT/OT for now as patient has multiple recent evaluations and already accepted to snf -continue hydromorphone, tylenol, flexeril, lidocaine, gabapentin for pain control 3. UTI -continue macrobid and follow up urine cultures 4. Hypertension -continue losartan 5. Sarcoid, and ILD -continue prednisone 6. Mild hypercalcemia -check again in am -for now will hold calcium supplements CODE: DNR/DNI Proxy: NeighborMichael DIET: Diabetic DVT ppx: Lovenox DISPO: plan for to dc to snf on 11/15 to [facility] which has accepted [facility] - Admit I confirm the patient?s Advance Care Plan is present, Code status is documented, Surrogate decision maker is in patient?s record [If Yes, STOP here]: Yes
[2020-11-14] MEDS: ATORVASTATIN 20 MG TABLET PO (21:08)
[2020-11-14] MEDS: MONTELUKAST 10 MG TABLET PO (21:09)
[2020-11-15 03:21] VITALS: BP 144/67; PULSE 92; RESP 16; TEMP 37; O2SAT 93
[2020-11-15] MEDS: ACETAMINOPHEN 325 MG TABLET 650 MG PO ×2 (04:47→09:28)
[2020-11-15 06:24] LABS: Alanine Aminotransferase 10 IU/L (<35); Albumin 3.4 g/dL (3.5-5.0); Albumin Globulin Ratio 1.2 (1.0-2.8); Alkaline Phosphatase 106 U/L (38-126); Aspartate Aminotransferase 16 IU/L (14-36); BUN Creatinine Ratio 17.5 (6-22); Bilirubin Total 0.5 mg/dL (0.2-1.3); Blood Urea Nitrogen 11 mg/dL (7-17); Calcium 9.6 mg/dL (8.4-10.2); Carbon Dioxide 29 mmol/L (22-32); Chloride 100 mmol/L (98-107); Estimated Glomerular Filt Rate > 60.0 mL/min (>60); Globulin 2.8 g/dL (1.7-4.1); Glucose 124 mg/dL (80-110); HEMOLYSIS < 15 (0-50); Sodium 135 mmol/L (137-145); Total Protein 6.2 g/dL (6.3-8.2)
[2020-11-15 08:00] VITALS: O2SAT 95
[2020-11-15 08:41] VITALS: BP 178/97; PULSE 97; RESP 14; TEMP 36.4; O2SAT 95
--- NOTE | 2020-11-15 09:01 | PM.DS.1 ---
History of Present Illness History of Present Illness Chief complaint: extreme pain, several falls, difficulty walkiing Narrative: Ms. Small is a 70W with PMH asthma, bronchiectasis, GERD, hypertension, ILD who has multiple recent admissions including for lumbar compression fracture and COVID pneumonia. She came back with hypoxemia and was found to be COVID positive and diagnosed with respiratory failure from COVID pneumonia. She was just discharged a few days ago. Unfortunately, she had been clearly physically below her baseline, and SNF placement was attempted. Three negative COVID tests were obtained in efforts to have an SNF accept the patient. However they all declined. Patient was discharged home. She lives alone, and has only an elderly friend for support. She could not afford 24 hour care. She was ordered for home health. However she presents back to the hospital because she can't take care of herself and can't get up alone at night and get to the bathroom from bed. From a respiratory standpoint she feels at her baseline. In the ED workup was done, she was found to be slightly hypertensive. She had an elevated WBC and workup showed a positive UA consistent with UTI. She was given a dose of macrobid. SW worked on SNF while patient in ED and patient has SNF arranged for tomorrow morning 11/15, she will be observed overnight in the hospital and arranged for discharged tomorrow. She is agreeable with this plan. Discharge Providers Provider Date of admission: 11/14/20 15:11 Discharge Date: 11/15/20 Primary care physician: Rufina Stockton DO Consults: 11/14/20 06:58 Consult to [facility] - [place] [employer] Stat Comment: needs a [facility] Consult: [facility] Need Discharge provider: Cee Hilton MD Summary Hospital Course Discharge Diagnosis: 1. Frequent falls, failure to thrive 2. Lumbar Compression Fracture 3. UTI 4. Hypertension 5. Sarcoid, ILD 6. Hypercalcemia Hospital Course: Patient was admitted to the hosptial for frequent falls and inability to care for herself. It was deemed she would need mcfp at discharge as she was unable to care for herself at home. Patient remains Covid negative, she was found to have a UTI and treated with Macrobid for this. Patient was deemed appropriate for discharge and discharged to [facility]. Exam Vital Signs (past 8 hours): - 11/15/20 03:21 Temperature 98.6 F Pulse Rate 92 H Respiratory Rate 16 Blood Pressure 144/67 H Pulse Oximetry 93 Oxygen Delivery Method Room Air Oxygen Flow Rate 0 Const Other: pleasant female in no acute distress Resp Other: Lungs: decreased breath sounds with bibasilar crackles Cardio Other: RRR nl Sl S2 2/6 [place] GI Other: soft/ and non tender Extrem Other: no edema Objective Labs Result Diagrams: 11/14/20 06:40 11/15/20 05:33 Labs: Laboratory Results - last 24 hr 11/14/20 11/14/20 11/15/20 08:45 09:43 05:33 Sodium 135 L Potassium 4.0 Chloride 100 Carbon Dioxide 29 BUN 11 Creatinine 0.63 Estimated GFR > 60.0 BUN/Creatinine Ratio 17.5 Glucose 124 H Calcium 9.6 Total Bilirubin 0.5 AST 16 ALT 10 Alkaline Phosphatase 106 Total Protein 6.2 L Albumin 3.4 L Globulin 2.8 Albumin/Globulin Ratio 1.2 Urine Color Yellow Urine Appearance Clear Urine pH 5.5 Ur Specific [place] <=1.005 Urine Protein Trace H Urine Glucose (UA) Negative Urine Ketones Trace H Urine Occult Blood Negative Urine Nitrate Negative Urine Bilirubin Negative Urine Urobilinogen 0.2 Ur Leukocyte Esterase 2+ H Urine RBC None seen Urine WBC 10-30/hpf H Ur Squamous Epith Cells 1-5 /hpf Urine Bacteria Moderate (10-30) H Ur Culture Indicated? Specimen cultured SARS-CoV-2 (PCR) Negative PFSH Medical History [place]'s disease Arthritis Asthma Chronic cough CKD (chronic kidney disease), stage III Diabetes Edema GERD (gastroesophageal reflux disease) Hiatal hernia HLD (hyperlipidemia) HTN (hypertension) Incontinence Interstitial lung disease Nasal polyp Neuropathy Pneumonia Polymyositis Sarcoidosis SCC (squamous cell carcinoma) Surgical History H/O wrist surgery History of arthroplasty of left knee History of arthroplasty of right knee Hx of bilateral cataract extraction Hx of cholecystectomy Hx of hernia repair Hx of tonsillectomy Status post correction of deviated nasal septum Social History household members: none Smoking Status: Never smoker alcohol intake: current Discharge Assessment & Plan Assessment and Plan Assessment: Back pain secondary to lumbar compression fracture UTI Weakness Sarcoid/ILD Hypercalcemia Plan of Treatment: To SNF for ongoing rehabilitation Discharge Plan Discharge Plan Patient Disposition: SNF Transfer to: [facility] Transportation: Cabulance Consult as needed: Dental, Hearing, Mental health, Podiatry and Vision I certify the postop hospital mcfp care is medically necessary on a continuing basis for any conditions for which he/ she received care during this hospitalization.: Yes The receiving facility has agreed to accept transfer and provide medical treatment.: Yes Discharge orders & Medications Prescriptions: New nitrofurantoin monohyd/m-cryst [Macrobid] 100 mg Capsule 100 mg PO BID 7 Days Qty: 14 RF: 0 hydromorphone 2 mg Tablet 2 mg PO Q6H PRN (Reason: pain) 10 Days RF: 0 Continued cyclobenzaprine 10 mg tablet 10 mg PO TID PRN (Reason: muscle spasm) Qty: 10 RF: 0 acetaminophen 325 mg tablet 500 mg PO Q6HR PRN (Reason: Pain, Mild (1-3)) RF: 0 cetirizine 10 mg Tablet 10 mg PO QPM RF: 0 folic acid 400 mcg Tablet 0.4 mg PO QAM RF: 0 calcium carbonate-vitamin D2 600 mg calcium- 200 unit Tablet 1 tab PO DAILY RF: 0 Probiotic 20 billion cell Capsule 20,000 mmu cells PO QAM RF: 0 hydromorphone 2 mg tablet 2 mg PO Q6H PRN (Reason: pain) Qty: 30 RF: 0 lidocaine 4 % adhesive patch,medicated 1 patch topical DAILY Qty: 15 RF: 0 losartan 50 mg Tablet 25 mg PO QAM RF: 0 prednisone 5 mg Tablet 4 mg PO QAM RF: 0 acyclovir 400 mg Tablet 400 mg PO BID RF: 0 mycophenolate mofetil [CellCept] 500 mg Tablet 750 mg PO BID RF: 0 gabapentin 300 mg Capsule 600 mg PO TID RF: 0 montelukast 10 mg Tablet 10 mg PO BEDTIME RF: 0 metoclopramide HCl 10 mg Tablet 10 mg PO TID RF: 0 rosuvastatin [Crestor] 10 mg Tablet 10 mg PO BEDTIME RF: 0 Basaglar KwikPen U-100 Insulin 100 unit/mL (3 mL) Insulin Pen 15 unit SUBCUT QAM RF: 0 potassium chloride 20 mEq Tablet Extended Release 20 meq PO QAM RF: 0 docusate sodium [DOK] 100 mg Capsule 100 mg PO BID Qty: 40 RF: 0 Follow up/Referrals: Rufina Stockton DO [Primary Care Provider] - Discharge Health Status Multidrug resistant organism: No MDRO Diet/Activity/Treatments Diet: Low-fat and Low-sodium Liquid consistency: Normal/Thin Food texture: Regular [facility] Reason for rehabilitation: Recovery r/t decondition Rehab type: Physical therapy and Occupational therapy Discharge Data Primary Care Provider: Rufina Stockton Attending Provider: Juvenal Goodman VTE Deep Vein Thrombosis/Pulmonary Embolism Present on Admission: No
[2020-11-15] MEDS: ENOXAPARIN 40 MG/0.4 ML SYRINGE SUBCUT (09:13)
[2020-11-15] MEDS: MYCOPHENOLATE MOFETIL 500 MG TABLET 750 MG PO (09:13)
[2020-11-15] MEDS: NITROFURANTOIN ER 100 MG CAPSULE PO (09:13)
[2020-11-15] MEDS: GABAPENTIN 600 MG TABLET PO (09:13)
[2020-11-15] MEDS: DOCUSATE 100 MG CAPSULE PO (09:13)
[2020-11-15] MEDS: METOCLOPRAMIDE HCL 10 MG TABLET PO (09:14)
[2020-11-15] MEDS: ACYCLOVIR 400 MG TABLET PO (09:14)
[2020-11-15] MEDS: predniSONE 1 MG TABLET 4 MG PO (09:14)
[2020-11-15] MEDS: LIDOCAINE PATCH 1 EACH ADH..PATCH TOP (09:15)
[2020-11-15] MEDS: POTASSIUM CHLORIDE 20 MEQ TAB PO (09:15)
[2020-11-15] MEDS: FOLIC ACID 0.4 MG TABLET PO (09:17)
[2020-11-15 09:19] VITALS: BP 142/71; PULSE 110
[2020-11-15] MEDS: LOSARTAN 50 MG TABLET 25 MG PO (09:19)
[2020-11-15] MEDS: INSULIN GLARGINE 100 UNIT/ML 3ML PEN 15 UNIT SUBCUT (09:28)
--- NOTE | 2020-11-15 12:21 | PC.NURSE ---
pt received lying in bed sleeping, easily awakened A&Ox3. SBP initially elevated oin 190's but upon recheck and ambulating SBP down to 140's. Pt reports pain well controlled this shift with lidocaine patch and tylenol. Pt is able to ambulate short distances with minimal SOB and fatigue SBA with FWW. Afebrile on RA, LS diminished bases, clear. Patient is medically cleared for discharge and arranged to be transported to [facility] this a.m. rehab facility. Pt acknowledges and agrees to discharge plan, and verbalizes understanding of medications, and treatment. Paty at [facility] obtained report from RN. At approximately 1110 patient escorted by facility designee to [facility], who picked up patient with w/chair. Transported with all belongings including her purse and discharge packet with prescriptions.
--- NOTE | 2020-11-15 15:39 | CM.DPNOTE ---
DC Note Patient DC to [email or web address] today via cabulance, p/u at 1100. DC med list and ppk faxed, [facility] faxed, [facility] vaccination card in patient's - September aware Patient agreeable to plan and appreciative JW
== END 2020-11-15 11:10 ==
LOC: ED 08:44 → AC 15:11
PROVIDERS: Emergency Medicine; Admitting Provider Internal Medicine; Emergency Provider Emergency Medicine; PCP Family Medicine; Referring Provider Emergency Medicine; Visit Provider Internal Medicine
DX: N39.0 Urinary tract infection, site not specified (principal); B96.89 Other specified bacterial agents as the cause of diseases classified elsewhere; R26.2 Difficulty in walking, not elsewhere classified; Z91.81 History of falling; E83.52 Hypercalcemia; R62.7 Adult failure to thrive; M48.56XD Collapsed vertebra, not elsewhere classified, lumbar region, subsequent encounter for fracture with routine healing; J84.9 Interstitial pulmonary disease, unspecified; N18.30 Chronic kidney disease, stage 3 unspecified; I10 Essential (primary) hypertension; K21.9 Gastro-esophageal reflux disease without esophagitis; Z20.822 Contact with and (suspected) exposure to COVID-19; Z86.16 Personal history of COVID-19
CPT/HCPCS: 36415; 71045; 80053; 81001; 85025; 87077; 87086; 87186; 87635; 96372; 99284; C9803; G0378; J1650

== ENCOUNTER → 2020-11-29 11:11 | Outpatient (CLI) | payer MEDICARE, BC, SELFPAY ==
[2020-11-14 17:35] VITALS: BMI 32.2
--- NOTE | 2020-11-29 | DI.RAD.S_ITS ---
PROCEDURE: XR CHEST 2V INDICATIONS: PNEUMONIA TECHNIQUE: 2 views of the chest were acquired. COMPARISON: [facility], CR, XR CHEST 1V, 11/14/2020, 6:36. FINDINGS: Surgical changes and devices: Lower lumbar fixation hardware incompletely visualized. Cholecystectomy clips. Lungs and pleura: Lungs are clear, aside from persistent left mid and basilar airspace opacity. No pleural effusions or pneumothorax. Mediastinum: Mediastinal contours are normal. Heart size is normal. Bones and chest wall: No suspicious bony abnormalities. Soft tissues appear unremarkable. IMPRESSION: Persistent left mid lung and basilar airspace opacity not significant changed from prior examination. Continued radiographic follow-up to resolution is recommended and if the densities persist, chest CT is recommended. Dictated by: Sam Clemente Alon Interpreted: Nikita Peters MD on 11/29/2020 at 12:00 Transcribed by: CHRISTIE on 11/29/2020 at 12:02 Approved by: Nikita Peters M.D. on 11/29/2020 at 13:03
== END ==
PROVIDERS: PCP Family Medicine; Referring Provider Nurse Practitioner; Visit Provider Nurse Practitioner
DX: J18.9 Pneumonia, unspecified organism (principal)
CPT/HCPCS: 71046

== ENCOUNTER → 2020-12-07 12:02 | Outpatient (CLI) | payer MEDICARE, BC, SELFPAY ==
[2020-11-14 17:35] VITALS: BMI 32.2
--- NOTE | 2020-12-07 12:07 | DI.RAD.S_ITS ---
PROCEDURE: XR CHEST 2V INDICATIONS: PNEUMONIA/ CHEST XRAY TECHNIQUE: 2 views of the chest were acquired. COMPARISON: [facility], , XR CHEST 2V, 11/29/2020, 11:33. FINDINGS: Surgical changes and devices: None. Lungs and pleura: Persistent left mid and bibasilar airspace opacities redemonstrated which appears similar to prior examination. No definitive pleural effusion or pneumothorax is seen. Mediastinum: Mediastinal contours are normal. Heart size is normal. Bones and chest wall: No suspicious bony abnormalities. Soft tissues appear unremarkable. IMPRESSION: Persistent left mid and basilar opacities not significant changed from prior examination. Given the persistence and no change, consider chest CT for further assessment as underlying neoplasm cannot be excluded. Dictated by: Sam GONZALEZ Interpreted: Nikita Peters MD on 12/07/2020 at 12:49 Transcribed by: CHRISTIE on 12/07/2020 at 12:51 Approved by: Nikita Peters M.D. on 12/07/2020 at 13:39
== END ==
PROVIDERS: PCP Family Medicine; Referring Provider Nurse Practitioner; Visit Provider Nurse Practitioner
DX: J18.9 Pneumonia, unspecified organism (principal)
CPT/HCPCS: 71046

== ENCOUNTER → 2021-04-25 16:02 | Outpatient (CLI) | payer MEDICARE, BC, SELFPAY ==
[2020-11-14 17:35] VITALS: BMI 32.2
== END ==
PROVIDERS: PCP Family Medicine; Referring Provider Internal Medicine; Visit Provider Internal Medicine
DX: I47.1 Supraventricular tachycardia (principal)
CPT/HCPCS: 87070; 87205

== ENCOUNTER 2022-07-27 11:27 | Inpatient (IN) | payer MEDICARE, BC, SELFPAY ==
[2020-11-14 17:35] VITALS: BMI 32.2
[2022-07-27] VITALS (19 sets, daily range): BP systolic 100–156; BP diastolic 56–93; PULSE 83–116; RESP 19–40; TEMP 36.2–37.3; O2SAT 84–97; BMI 32.3
--- NOTE | 2022-07-27 11:40 | DI.RAD.S_ITS ---
PROCEDURE: XR CHEST 1V INDICATIONS: suspected sepsis TECHNIQUE: One view of the chest was acquired. COMPARISON: [facility], CR, XR CHEST 2V, 12/07/2020, 12:12. FINDINGS: Surgical changes and devices: Cholecystectomy clips are seen. Lungs and pleura: Patchy interstitial infiltrates are seen, left worse than right. Low lung volumes are noted. This causes a crowded appearance to the lung markings and limits evaluation. On this semiupright portable chest examination, no large pneumothorax or large pleural effusions are seen. Mediastinum: Mediastinal contours appear normal. Heart size is normal. Bones and chest wall: No suspicious bony lesions. Age-appropriate bony degenerative changes are seen. Overlying soft tissues appear unremarkable. IMPRESSION: Low lung volumes with patchy interstitial infiltrates, left worse than right. Please consider a viral/atypical infiltrate. Postoperative and degenerative changes are seen. Dictated by: Maik Valdovinos M.D. on 07/27/2022 at 11:06 Approved by: Maik Valdovinos M.D. on 07/27/2022 at 11:07
[2022-07-27] MEDS: SODIUM CHLORIDE 0.9% 1,000 ML 1000 ML IV (11:47)
[2022-07-27 12:00] LABS: Add Manual Diff / Slide Review YES; Hematocrit 36.5 % (36-46); Hemoglobin 11.5 g/dL (12.0-16.0); Mean Corpuscular HGB Conc 31.6 % (30-36); Mean Corpuscular Hemoglobin 27.6 PG (26-34); Mean Corpuscular Volume 87.2 fL (80-100); Platelet Count 397 X10^3/uL (150-400); Red Blood Cell Count 4.19 X10^6/uL (4.0-5.2); Red Cell Distribution Width 14.7 % (11.6-14.8); White Blood Cell Count 14.3 X10^3/uL (4.5-11.0)
[2022-07-27 12:05] LABS: INR 1.4 (0.9-1.3)
[2022-07-27 12:08] LABS: PTT Partial Thromboplastin Tim 42 SECONDS (26-36)
[2022-07-27 12:09] LABS: Alanine Aminotransferase 21 IU/L (<35); Albumin 3.3 g/dL (3.5-5.0); Alkaline Phosphatase 78 U/L (38-126); Aspartate Aminotransferase 25 IU/L (14-36); BUN Creatinine Ratio 19.4 (6-22); Bilirubin Total 0.5 mg/dL (0.2-1.3); Blood Urea Nitrogen 13 mg/dL (7-17); Calcium 9.2 mg/dL (8.4-10.2); Carbon Dioxide 28 mmol/L (22-32); Chloride 98 mmol/L (98-107); Estimated Glomerular Filt Rate > 60 mL/min (>60); Globulin 3.3 g/dL (1.7-4.1); Glucose 163 mg/dL (80-110); HEMOLYSIS < 15 (0-50); Lactate (Lactic Acid) 1.4 mmol/L (0.7-2.1); Lipase 282 U/L (23-300); Potassium 3.8 mmol/L (3.4-5.1); Sodium 133 mmol/L (137-145); Total Protein 6.6 g/dL (6.3-8.2)
[2022-07-27 12:14] LABS: Neutrophils Absolute Manual 11869 /uL (3000-5900); Total Cells Counted 100
[2022-07-27 12:15] LABS: RBC Morphology Normal Morphology
[2022-07-27 12:17] LABS: Creatine Kinase 111 U/L (30-135)
[2022-07-27 12:26] LABS: Procalcitonin 0.24 ng/mL (<0.5)
[2022-07-27 12:32] LABS: NT-proBNP (BNP-Adult 18+) 371 pg/mL (<125); Troponin I < 0.012 ng/mL (0.01-0.034)
[2022-07-27 12:33] LABS: CKMB % Relative Index 1.8 % (1.5-5.0); Creatine Kinase MB 1.99 ng/mL (<2.37)
[2022-07-27 12:42] LABS: Adenovirus Not Detected (Not Detect); B. parapertussis Not Detected (Not Detecte); Bordetella pertussis Not Detected (Not Detecte); Chlamydophila pneumoniae Not Detected (Not Detect); Coronavirus 229E Not Detected (Not Detect); Coronavirus HKU1 Not Detected (Not Detect); Coronavirus NL 63 Not Detected (Not Detect); Coronavirus OC43 Not Detected (Not Detect); Human Metapneumovirus Not Detected (Not Detect); Human Rhinovirus/Enterovirus Detected (Not Detect); Influenza A Not Detected (Not Detect); Influenza B Not Detected (Not Detect); Mycoplasma pneumoniae Not Detected (Not Detect); Parainfluenza Virus 1 Not Detected (Not Detect); Parainfluenza Virus 2 Not Detected (Not Detect); Parainfluenza Virus 3 Not Detected (Not Detect); Parainfluenza Virus 4 Not Detected (Not Detect); Respiratory Syncytial Virus Not Detected (Not Detect); SARS- CoV-2 Not Detected (Not Detecte)
--- NOTE | 2022-07-27 13:07 | ED_ITS ---
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 Patient states she had a fever of 101 F last night at home she is been on doxycycline for a week prescribed by her pulmonology team. She has not been improving and has had increasing cough with green productive sputum, shortness of breath and occasional chest pain. Patient has not had any syncope. She is denying GI or urinary symptoms. She is not appreciate significant new swelling in her extremities. Patient states she is typically on prednisone daily she was as low as 3 mg but is at 4 mg currently. She does use inhaler she has not found that very helpful. She does not normally use home O2, no BiPAP, CPAP or other interventions other than her inhalers. Patient states she had prior knee surgeries remotely but has never had any cardiac interventions, no cardiac stents or cardiopulmonary surgery or abdominal surgery. They states she is allergic to penicillin and sulfa. She states she tolerates oral pain medications without issue. No tobacco, occasional alcohol, no illicit. Dr. Avendano is her PCP. Related Data Home Medications Medication Instructions Recorded Confirmed acyclovir 400 mg tablet 400 mg PO BID 06/27/19 07/27/22 gabapentin 300 mg capsule 600 mg PO TID 06/27/19 07/27/22 insulin glargine 100 unit/mL (3 15 unit SUBCUT QAM 06/27/19 07/27/22 mL) subcutaneous pen (Basaglar KwikPen U-100 Insulin) losartan 50 mg tablet 25 mg PO QAM 06/27/19 07/27/22 metoclopramide HCl 10 mg tablet 10 mg PO TID 06/27/19 07/27/22 montelukast 10 mg tablet 10 mg PO BEDTIME 06/27/19 07/27/22 mycophenolate mofetil 500 mg 750 mg PO BID 06/27/19 07/27/22 tablet (CellCept) potassium chloride 20 mEq 20 meq PO QAM 06/27/19 07/27/22 tablet,extended release prednisone 5 mg tablet 4 mg PO QAM 06/27/19 07/27/22 rosuvastatin 10 mg tablet (Crestor) 10 mg PO BEDTIME 06/27/19 07/27/22 acetaminophen 325 mg tablet 500 mg PO Q6HR PRN Pain, Mild (1-3) 10/24/20 07/27/22 calcium carb-ergocalciferol (vit 1 tab PO DAILY 10/24/20 07/27/22 D2) 600 mg calcium-200 unit tablet cetirizine 10 mg tablet 10 mg PO QPM 10/24/20 07/27/22 folic acid 400 mcg tablet 0.4 mg PO QAM 10/24/20 07/27/22 lactobacillus comb no.10 20 20,000 mmu cells PO QAM 10/24/20 07/27/22 billion cell capsule (Probiotic) Previous Rx's Medication Instructions Recorded docusate sodium 100 mg capsule 100 mg PO BID #40 caps 07/12/19 (DOK) cyclobenzaprine 10 mg tablet 10 mg PO TID PRN muscle spasm #10 10/21/20 tabs hydromorphone 2 mg tablet 2 mg PO Q6H PRN pain #30 tabs 10/25/20 lidocaine 4 % topical patch 1 patch topical DAILY #15 ea 10/25/20 Allergies Allergy/AdvReac Type Severity Reaction Status Date / Time Penicillins Allergy Severe Swelling Verified 11/14/20 09:18 of Lip/Tongue/Throat amoxicillin Allergy Intermediate Hives Verified 11/14/20 09:18 oxycodone Allergy Intermediate Hives Verified 11/14/20 09:18 Sulfa (Sulfonamide Allergy Intermediate Hives Verified 11/14/20 09:18 Antibiotics) Review of Systems Review of Systems ROS Unobtainable: All systems reviewed & are unremarkable except as noted in HPI and below Patient History Medical History [place]auquier's disease Arthritis Asthma Chronic cough CKD (chronic kidney disease), stage III Diabetes Edema GERD (gastroesophageal reflux disease) Hiatal hernia HLD (hyperlipidemia) HTN (hypertension) Incontinence Interstitial lung disease Nasal polyp Neuropathy Pneumonia Polymyositis Sarcoidosis SCC (squamous cell carcinoma) Surgical History H/O wrist surgery History of arthroplasty of left knee History of arthroplasty of right knee Hx of bilateral cataract extraction Hx of cholecystectomy Hx of hernia repair Hx of tonsillectomy Status post correction of deviated nasal septum Social History household members: none Smoking Status: Never smoker alcohol intake: current Smoking Status: Never smoker alcohol intake frequency: holidays/special occasions only Substance Use Type: does not use Exam Narrative Exam Narrative: GEN: Elderly appearing female, alert and oriented x 3, patient appears to be in [id number] distress. HEENT: Atraumatic, pupils are equal round reactive to light, extraocular movements are intact, nares are clear. Throat is clear without any exudates, erythema, tonsillar enlargement or uvular deviation, HEART: Regular rate and rhythm without murmur, clicks, rubs. No carotid bruits, pulses are equal in upper and lower extremities, no edema bilateral lower extremities. LUNGS:Lungs c coarse bilaterally, mild wheeze left anterior chest, no rales, no crackles, chest moves symmetrically, mild tachypnea. Patient has a very persistent dry cough in the room making it difficult for her to engage in HPI but is able to do so. ABD:bowel sounds normal, soft, non-tender, no guarding, rebound, rigidity, no masses noted, no hepatosplenomegaly :No CVA tenderness MSCL: Non-tender, no muscle atrophy, muscles strength 5/5 upper and lower extremities, full range of motion NEURO:CN 2-12 intact, sensation normal SKIN: No rash, erythema or other skin changes Initial Vital Signs Initial Vital Signs: Vital Signs Temperature 99.1 F 07/27/22 11:36 Pulse Rate 112 H 07/27/22 11:36 Respiratory Rate 20 07/27/22 11:36 Blood Pressure 139/67 07/27/22 11:36 Pulse Oximetry 93 07/27/22 11:36 Oxygen Delivery Method Room Air 07/27/22 11:36 Course Orders Ordered: ED Orders 07/27/22 11:40 XR chest 1V Stat RT Consult Eval and Treat NOW 07/27/22 11:42 EKG-12 Lead Stat 07/27/22 11:50 BNP [NT-proBNP (BNP-Adult 18+)] Stat Complete Blood Count AUTO DIFF Stat Comprehensive Metabolic Panel Stat Lactate (Lactic Acid) Stat Lipase Stat PTT Partial Thromboplastin Cristino Stat Procalcitonin Stat Prothrombin Time INR Stat Respiratory Panel (Film Array) Stat Troponin & CK Cardiac Panel Stat 07/27/22 12:10 Blood Culture Stat Acetaminophen (Acetaminophen 325 Mg Tablet) 650 mg PO Q4H PRN PRN Reason: Fever/Mild Pain (1-3) Acetaminophen/Codeine Phosphate (Codeine/Acetaminophen 30/300 Tablet) 1 tab PO Q4H PRN PRN Reason: Cough Last Admin: 07/27/22 18:31 Dose: 1 tab Documented By: MM Acyclovir (Acyclovir 400 Mg Tablet) 400 mg PO BID [facility] Last Admin: 07/27/22 15:39 Dose: 400 mg Documented By: MM Albuterol (Albuterol 2.5 Mg/3 Ml Neb (Adult)) 2.5 mg INH [id number] [facility] Albuterol (Albuterol 2.5 Mg/3 Ml Neb (Adult)) 2.5 mg INH [id number] PRN PRN Reason: Shortness Of Breath Atorvastatin Calcium (Atorvastatin 20 Mg Tablet) 20 mg PO BEDTIME [facility] Budesonide (Budesonide 0.5 Mg/2 Ml Neb) 0.5 mg INH RTBID [facility] Calcium Carbonate (Calcium Carbonate 500 Mg Tab) 500 mg PO BID [facility] Enoxaparin Sodium (Enoxaparin 40 Mg/0.4 Ml Syringe) 40 mg SUBCUT DAILY [facility] Last Admin: 07/27/22 15:38 Dose: 40 mg Documented By: MM Folic Acid (Folic Acid 1 Mg Tablet) 1 mg PO DAILY [facility] Gabapentin (Gabapentin 600 Mg Tablet) 600 mg PO TID [facility] Last Admin: 07/27/22 15:40 Dose: 600 mg Documented By: MM Vancomycin HCl (Vancomycin) 750 mg in 150 mls @ 150 mls/hr IV Q12H [facility] Sodium Chloride (Normal Saline 0.9%) 500 mls @ 21 mls/hr IV CONT [facility] Last Admin: 07/27/22 15:41 Dose: 21 mls/hr Documented By: MM Insulin Glargine (Insulin Glargine 100 Unit/Ml 3ml Pen) 15 unit SUBCUT DAILY [facility] Lactobacillus Acidophilus (Lactobacillus Acidophilus Tablet) 1 each PO DAILY [facility] Levofloxacin (Levofloxacin 250 Mg Tablet) 750 mg PO 0700 [facility] Stop: 08/03/22 06:59 Losartan Potassium (Losartan 25 Mg Tablet) 25 mg PO DAILY [facility] Melatonin (Melatonin 3 Mg Tablet) 6 mg PO BEDTIME [facility] Metoclopramide HCl (Metoclopramide Hcl 5 Mg Tablet) 10 mg PO AC [facility] Last Admin: 07/27/22 17:45 Dose: 10 mg Documented By: MM Mycophenolate Mofetil (Mycophenolate Mofetil 500 Mg Tablet) 750 mg PO BID [facility] Ondansetron HCl (Ondansetron 4 Mg/2 Ml Inj) 4 mg IV Q6HR PRN PRN Reason: Nausea And Vomiting Last Admin: 07/27/22 15:39 Dose: 4 mg Documented By: MM Pantoprazole Sodium (Pantoprazole Dr 40 Mg Tablet) 40 mg PO 0700 [facility] Last Admin: 07/27/22 15:39 Dose: 40 mg Documented By: MM Potassium Chloride (Potassium Chloride 20 Meq Tab) 20 meq PO DAILYCC [facility] Prednisone (Prednisone 5 Mg Tablet) 5 mg PO BID [facility] Stop: 07/30/22 08:00 Last Admin: 07/27/22 15:40 Dose: 5 mg Documented By: MM Prednisone (Prednisone 5 Mg Tablet) 5 mg PO DAILY [facility] Tramadol HCl (Tramadol 50 Mg Tablet) 100 mg PO DAILY [facility] Vancomycin HCl (Vancomycin Trough) 1 request [facility] [place] 1230 ONE Stop: 07/29/22 12:31 Vitamin D (Cholecalciferol (Vitamin D3) 1,000 Unit Tablet) 1,000 unit PO DAILY [facility] Discontinued Medications Albuterol/Ipratropium (Albuterol/Ipratropium 3 Ml Ampul) 3 ml INH NOW ONE Stop: 07/27/22 13:08 Last Admin: 07/27/22 13:21 Dose: 3 ml Documented By: SAT Albuterol/Ipratropium (Albuterol/Ipratropium 3 Ml Ampul) 3 ml INH Q1H PRN PRN Reason: Shortness Of Breath Guaifenesin/Codeine Phosphate (Codeine/Guaifenesin Liquid 5ml Udc) 10 ml PO NOW ONE Stop: 07/27/22 13:06 Last Admin: 07/27/22 13:27 Dose: 10 ml Documented By: SB Sodium Chloride (Normal Saline 0.9%) 1,000 mls @ 1,000 mls/hr IV BOLUS ONE Stop: 07/27/22 12:38 Last Infusion: 07/27/22 13:28 Dose: 0 mls/hr Documented By: Infusion: 07/27/22 12:41 Dose: 0 mls/hr Documented By: Admin: 07/27/22 11:47 Dose: 1,000 mls/hr Documented By: CHANTEL Vancomycin HCl (Vancomycin) 1,250 mg in 250 mls @ 250 mls/hr IV NOW ONE Stop: 07/27/22 14:06 Last Admin: 07/27/22 13:17 Dose: 250 mls/hr Documented By: MARANDA Levofloxacin (Levaquin) 750 mg in 150 mls @ 100 mls/hr IV NOW ONE Stop: 07/27/22 14:45 Last Admin: 07/27/22 15:40 Dose: 100 mls/hr Documented By: MARCO Sodium Chloride (Normal Saline 0.9%) 1,000 mls @ 150 mls/hr IV CONT [facility] Last Admin: 07/27/22 13:29 Dose: 150 mls/hr Documented By: MARANDA Methylprednisolone (Methylprednisolone 125 Mg/2 Ml Vial) 125 mg IV NOW ONE Stop: 07/27/22 13:06 Last Admin: 07/27/22 13:16 Dose: 125 mg Documented By: MARANDA Ondansetron HCl (Ondansetron 4 Mg Odt) 4 mg SL NOW PRN PRN Reason: Nausea And Vomiting Ondansetron HCl (Ondansetron 4 Mg/2 Ml Inj) 4 mg IV NOW PRN PRN Reason: Nausea And Vomiting Vital Signs Vital signs: Vital Signs - 8 hr 07/27/22 11:36 07/27/22 11:37 07/27/22 11:45 Temperature 99.1 F Pulse Rate 112 H 110 H Respiratory Rate 20 39 H Blood Pressure 139/67 130/64 Pulse Oximetry 93 95 Oxygen Delivery Method Room Air Oxygen Flow Rate 07/27/22 11:45 07/27/22 12:00 07/27/22 12:15 Temperature Pulse Rate 108 H 109 H 107 H Respiratory Rate 37 H 27 H 22 Blood Pressure Pulse Oximetry 92 91 93 Oxygen Delivery Method Room Air Oxygen Flow Rate 07/27/22 12:30 07/27/22 12:35 07/27/22 12:35 Temperature Pulse Rate 103 H 108 H Respiratory Rate 23 40 H Blood Pressure 147/65 H Pulse Oximetry 93 91 Oxygen Delivery Method Oxygen Flow Rate 07/27/22 12:45 07/27/22 12:45 07/27/22 13:00 Temperature Pulse Rate 105 H 116 H Respiratory Rate 36 H 39 H Blood Pressure 136/63 Pulse Oximetry 84 L 97 Oxygen Delivery Method Room Air Nasal Cannula Oxygen Flow Rate 4 07/27/22 13:01 07/27/22 13:01 07/27/22 13:15 Temperature Pulse Rate 114 H 109 H Respiratory Rate 38 H Blood Pressure 156/93 H Pulse Oximetry 97 95 Oxygen Delivery Method Nasal Cannula Nasal Cannula Oxygen Flow Rate 4 4 07/27/22 13:17 07/27/22 13:17 Temperature Pulse Rate 106 H Respiratory Rate 32 H Blood Pressure 100/59 L Pulse Oximetry 96 Oxygen Delivery Method Nasal Cannula Oxygen Flow Rate 4 MDM - SOB/Dyspnea Lab Data 07/27/22 11:50 07/27/22 11:50 Labs: Lab Results 07/27/22 07/27/22 07/27/22 Range/Units 11:50 11:50 11:50 WBC 14.3 H (4.5-11.0) X10^3/uL RBC 4.19 (4.0-5.2) X10^6/uL Hgb 11.5 L (12.0-16.0) g/dL Hct 36.5 (36-46) % MCV 87.2 (80-100) fL MCH 27.6 (26-34) PG MCHC 31.6 (30-36) % RDW 14.7 (11.6-14.8) % Plt Count 397 (150-400) X10^3/uL Neut % (Auto) Not Reportable Lymph % (Auto) Not Reportable Marion % (Auto) Not Reportable Eos % (Auto) Not Reportable Baso % (Auto) Not Reportable Lymph # (Auto) Not Reportable Marion # (Auto) Not Reportable Baso # (Auto) Not Reportable Total Counted 100 Seg Neutrophils % 83.0 H (38-70) % Lymphocytes % (Manual) 7.0 L (25-45) % Monocytes % (Manual) 10.0 (2-11) % Neutrophils # (Manual) 13321 H (7030-2771) /uL RBC Morphology Normal morphology PT 16.0 H (10.1-12.7) SECONDS INR 1.4 H (0.9-1.3) APTT 42 H (26-36) SECONDS Sodium 133 L (137-145) mmol/L Potassium 3.8 (3.4-5.1) mmol/L Chloride 98 (98-107) mmol/L Carbon Dioxide 28 (22-32) mmol/L BUN 13 (7-17) mg/dL Creatinine 0.67 (0.52-1.04) mg/dL Estimated GFR > 60 (>60) mL/min BUN/Creatinine Ratio 19.4 (6-22) Glucose 163 H (80-110) mg/dL Lactate (0.7-2.1) mmol/L Calcium 9.2 (8.4-10.2) mg/dL Total Bilirubin 0.5 (0.2-1.3) mg/dL AST 25 (14-36) IU/L ALT 21 (<35) IU/L Alkaline Phosphatase 78 (38-126) U/L Total Creatine Kinase (30-135) U/L CK-MB (CK-2) (<2.37) ng/mL CK-MB (CK-2) Rel Index (1.5-5.0) % Troponin I (0.01-0.034) ng/mL NT-Pro-B Natriuret Pep (<125) pg/mL Total Protein 6.6 (6.3-8.2) g/dL Albumin 3.3 L (3.5-5.0) g/dL Globulin 3.3 (1.7-4.1) g/dL Albumin/Globulin Ratio 1.0 (1.0-2.8) Lipase 282 (23-300) U/L Procalcitonin 0.24 (<0.5) ng/mL Chlamy pneumoniae PCR (Not Detect) Adenovirus (PCR) (Not Detect) B. pertussis DNA (PCR) (Not Detecte) B.parapertussis DNA PCR (Not Detecte) Coronavirus OC43 (PCR) (Not Detect) Coronavirus HKU1 (PCR) (Not Detect) Coronavirus 229E (PCR) (Not Detect) SARS-CoV-2 (PCR) (Not Detecte) Coronavirus NL63 (PCR) (Not Detect) Human Metapneumovir PCR (Not Detect) Influenza Type A (PCR) (Not Detect) Influenza Type B (PCR) (Not Detect) M. pneumoniae (PCR) (Not Detect) Parainfluenza 1 (PCR) (Not Detect) Parainfluenza 2 (PCR) (Not Detect) Parainfluenza 3 (PCR) (Not Detect) Parainfluenza 4 (PCR) (Not Detect) RSV (PCR) (Not Detect) Entero/Rhino (PCR) (Not Detect) 07/27/22 07/27/22 07/27/22 Range/Units 11:50 11:50 11:50 WBC (4.5-11.0) X10^3/uL RBC (4.0-5.2) X10^6/uL Hgb (12.0-16.0) g/dL Hct (36-46) % MCV (80-100) fL MCH (26-34) PG MCHC (30-36) % RDW (11.6-14.8) % Plt Count (150-400) X10^3/uL Neut % (Auto) Lymph % (Auto) Marion % (Auto) Eos % (Auto) Baso % (Auto) Lymph # (Auto) Marion # (Auto) Baso # (Auto) Total Counted Seg Neutrophils % (38-70) % Lymphocytes % (Manual) (25-45) % Monocytes % (Manual) (2-11) % Neutrophils # (Manual) (1363-8417) /uL RBC Morphology PT (10.1-12.7) SECONDS INR (0.9-1.3) APTT (26-36) SECONDS Sodium (137-145) mmol/L Potassium (3.4-5.1) mmol/L Chloride (98-107) mmol/L Carbon Dioxide (22-32) mmol/L BUN (7-17) mg/dL Creatinine (0.52-1.04) mg/dL Estimated GFR (>60) mL/min BUN/Creatinine Ratio (6-22) Glucose (80-110) mg/dL Lactate 1.4 (0.7-2.1) mmol/L Calcium (8.4-10.2) mg/dL Total Bilirubin (0.2-1.3) mg/dL AST (14-36) IU/L ALT (<35) IU/L Alkaline Phosphatase (38-126) U/L Total Creatine Kinase 111 (30-135) U/L CK-MB (CK-2) 1.99 (<2.37) ng/mL CK-MB (CK-2) Rel Index 1.8 (1.5-5.0) % Troponin I < 0.012 (0.01-0.034) ng/mL NT-Pro-B Natriuret Pep 371 H (<125) pg/mL Total Protein (6.3-8.2) g/dL Albumin (3.5-5.0) g/dL Globulin (1.7-4.1) g/dL Albumin/Globulin Ratio (1.0-2.8) Lipase (23-300) U/L Procalcitonin (<0.5) ng/mL Chlamy pneumoniae PCR Not detected (Not Detect) Adenovirus (PCR) Not detected (Not Detect) B. pertussis DNA (PCR) Not detected (Not Detecte) B.parapertussis DNA PCR Not detected (Not Detecte) Coronavirus OC43 (PCR) Not detected (Not Detect) Coronavirus HKU1 (PCR) Not detected (Not Detect) Coronavirus 229E (PCR) Not detected (Not Detect) SARS-CoV-2 (PCR) Not detected (Not Detecte) Coronavirus NL63 (PCR) Not detected (Not Detect) Human Metapneumovir PCR Not detected (Not Detect) Influenza Type A (PCR) Not detected (Not Detect) Influenza Type B (PCR) Not detected (Not Detect) M. pneumoniae (PCR) Not detected (Not Detect) Parainfluenza 1 (PCR) Not detected (Not Detect) Parainfluenza 2 (PCR) Not detected (Not Detect) Parainfluenza 3 (PCR) Not detected (Not Detect) Parainfluenza 4 (PCR) Not detected (Not Detect) RSV (PCR) Not detected (Not Detect) Entero/Rhino (PCR) Detected H (Not Detect) Imaging Data Chest x-ray: Radiologist's Impression: [address] [address] XRay Report Signed Patient: Dorene Small MR#: [id number] : 1950 Acct:[id number] Age/Sex: 72 / F Date of Service: 07/27/22 Loc: ED Accession Number: [id number] ?? Procedure: XR chest 1V Ordering Provider: Zeny Schumacher D.O. PROCEDURE:? XR CHEST 1V ? INDICATIONS:? suspected sepsis ? TECHNIQUE:? One view of the chest was acquired.? ? COMPARISON:? [facility], CR, XR CHEST 2V, 12/07/2020, 12:12. ? FINDINGS:? ? Surgical changes and devices:? Cholecystectomy clips are seen.? ? Lungs and pleura:? Patchy interstitial infiltrates are seen, left worse than right. Low lung volumes are noted. This causes a crowded appearance to the lung markings and limits evaluation.? On this semiupright portable chest examination, no large pneumo thorax or large pleural effusions are seen.? ? Mediastinum:? Mediastinal contours appear normal.? Heart size is normal.? ? Bones and chest wall:? No suspicious bony lesions.? Age-appropriate bony dege nerative changes are seen.? Overlying soft tissues appear unremarkable.? IMPRESSION:? Low lung volumes with patchy interstitial infiltrates, left worse than right.? Please consider a viral/atypical infiltrate. ? Postoperative and degenerative changes are seen.? ? ? Dictated by: Maik Valdovinos M.D. on 07/27/2022 at 11:06 ? ? Approved by: Maik Valdovinos M.D. on 07/27/2022 at 11:07?? ECG Data Attestation: I personally reviewed and interpreted this ECG as follows: Prior ECG tracings: available for review Interpretation: Sinus tachycardia rate of 111 ND 142 QRS 88 QTC 454[address] No acute ST elevation or depression noted. Patient has prior with no major change. MDM Narrative Medical decision making narrative: This is a 72-year-old male who presents with complaint of increasing cough, fevers and shortness of breath swollen intermittent chest pain patient was febrile at home 101 F she is tachycardic has a white count of 14, she is not anemic, renal function electrolytes are appropriate. Lactate and procalcitonin are negative, troponins negative with a BNP of 370, EKG shows a sinus tach she is acute 3 but no S1-T3. Patient has prior with similar appearing ST segments in the past. Chest x-ray shows patchy interstitial infiltrate with a positive entero/rhino virus. 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 Patient was given a dose of codeine to see if this would help a little bit with her cough. She is requiring some oxygen which is new for her. Patient case was discussed with Dr. Pitt who accepts for likely bacterial pneumonia after having a viral infection on top of chronic lung disease including bronchiectasis, sarcoid and history of adrenal insufficiency. Discharge Plan Departure Patient Disposition: Admitted As Inpatient Clinical Impression: Pneumonia, Bronchiectasis Admit Date/Time: 07/27/22 13:17 Admit Provider: Iesha Orellana
[2022-07-27] MEDS: methylPREDNISolone 125 MG/2 ML VIAL IV (13:16)
[2022-07-27] MEDS: VANCOMYCIN 1,250 MG/250 ML PIGGYBACK 250 MG IV (13:17)
[2022-07-27] MEDS: ALBUTEROL/IPRATROPIUM 3 ML AMPUL INH (13:21)
[2022-07-27] MEDS: CODEINE/GUAIFENESIN LIQUID 5ML UDC 10 ML PO (13:27)
[2022-07-27] MEDS: SODIUM CHLORIDE 0.9% 1,000 ML 150 ML IV (13:29)
--- NOTE | 2022-07-27 13:57 | P.HP_ITS ---
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 Patient stated she had a fever of 101 F last night at home by self measurement. She has been on doxycycline for a week prescribed by her pulmonology team.? She has not been improving and has had increasing cough with green productive sputu m, shortness of breath and occasional chest pain.? Patient has not had any syncope.? She denied GI or urinary symptoms.? She has not had significant new swelling in her extremities.? Patient states she is typically on prednisone daily and is at 4 mg currently.? She does use inhaler she has not found that very helpful.? She does not normally use home O2, no BiPAP, CPAP or other interventions other than her inhalers.? Patient stated she had prior knee surgeries remotely but has never had any cardiac interventions, no cardiac stents or cardiopulmonary surgery or abdominal surgery.? They stated she is allergic to penicillin and sulfa. [facility] Medical History Trinity's disease Arthritis Asthma Chronic cough CKD (chronic kidney disease), stage III Diabetes Edema GERD (gastroesophageal reflux disease) Hiatal hernia HLD (hyperlipidemia) HTN (hypertension) Incontinence Interstitial lung disease Nasal polyp Neuropathy Pneumonia Polymyositis Sarcoidosis SCC (squamous cell carcinoma) Surgical History H/O wrist surgery History of arthroplasty of left knee History of arthroplasty of right knee Hx of bilateral cataract extraction Hx of cholecystectomy Hx of hernia repair Hx of tonsillectomy Status post correction of deviated nasal septum Social History household members: none Smoking Status: Never smoker alcohol intake: current Meds Home Medications and Allergies Home Medications Medication Instructions Recorded Confirmed Type acyclovir 400 mg tablet 400 mg PO BID 06/27/19 11/14/20 History gabapentin 300 mg capsule 600 mg PO TID 06/27/19 11/14/20 History insulin glargine 100 unit/mL (3 15 unit SUBCUT QAM 06/27/19 11/14/20 History mL) subcutaneous pen (Basaglar KwikPen U-100 Insulin) losartan 50 mg tablet 25 mg PO QAM 06/27/19 11/14/20 History metoclopramide HCl 10 mg tablet 10 mg PO TID 06/27/19 11/14/20 History montelukast 10 mg tablet 10 mg PO BEDTIME 06/27/19 11/14/20 History mycophenolate mofetil 500 mg 750 mg PO BID 06/27/19 11/14/20 History tablet (CellCept) potassium chloride 20 mEq 20 meq PO QAM 06/27/19 11/14/20 History tablet,extended release prednisone 5 mg tablet 4 mg PO QAM 06/27/19 11/14/20 History rosuvastatin 10 mg tablet (Crestor) 10 mg PO BEDTIME 06/27/19 11/14/20 History docusate sodium 100 mg capsule 100 mg PO BID #40 caps 07/12/19 11/14/20 Rx (DOK) cyclobenzaprine 10 mg tablet 10 mg PO TID PRN muscle spasm #10 10/21/20 11/14/20 Rx tabs acetaminophen 325 mg tablet 500 mg PO Q6HR PRN Pain, Mild (1-3) 10/24/20 11/14/20 History calcium carb-ergocalciferol (vit 1 tab PO DAILY 10/24/20 11/14/20 History D2) 600 mg calcium-200 unit tablet cetirizine 10 mg tablet 10 mg PO QPM 10/24/20 11/14/20 History folic acid 400 mcg tablet 0.4 mg PO QAM 10/24/20 11/14/20 History lactobacillus comb no.10 20 20,000 mmu cells PO QAM 10/24/20 11/14/20 History billion cell capsule (Probiotic) hydromorphone 2 mg tablet 2 mg PO Q6H PRN pain #30 tabs 10/25/20 11/14/20 Rx lidocaine 4 % topical patch 1 patch topical DAILY #15 ea 10/25/20 11/14/20 Rx Allergies Allergy/AdvReac Type Severity Reaction Status Date / Time Penicillins Allergy Severe Swelling Verified 11/14/20 09:18 of Lip/Tongue/Throat amoxicillin Allergy Intermediate Hives Verified 11/14/20 09:18 oxycodone Allergy Intermediate Hives Verified 11/14/20 09:18 Sulfa (Sulfonamide Allergy Intermediate Hives Verified 11/14/20 09:18 Antibiotics) Review of Systems Review of Systems Narrative: Fourteen system review completed and pertinent findings in the history of chief complaint. Exam Vital Signs (past 8 hours): - 07/27/22 11:36 07/27/22 11:37 07/27/22 11:45 Temperature 99.1 F Pulse Rate 112 H 110 H Respiratory Rate 20 39 H Blood Pressure 139/67 130/64 Pulse Oximetry 93 95 Oxygen Delivery Method Room Air Oxygen Flow Rate 07/27/22 11:45 07/27/22 12:00 07/27/22 12:15 Temperature Pulse Rate 108 H 109 H 107 H Respiratory Rate 37 H 27 H 22 Blood Pressure Pulse Oximetry 92 91 93 Oxygen Delivery Method Room Air Oxygen Flow Rate 07/27/22 12:30 07/27/22 12:35 07/27/22 12:35 Temperature Pulse Rate 103 H 108 H Respiratory Rate 23 40 H Blood Pressure 147/65 H Pulse Oximetry 93 91 Oxygen Delivery Method Oxygen Flow Rate 07/27/22 12:45 07/27/22 12:45 07/27/22 13:00 Temperature Pulse Rate 105 H 116 H Respiratory Rate 36 H 39 H Blood Pressure 136/63 Pulse Oximetry 84 L 97 Oxygen Delivery Method Room Air Nasal Cannula Oxygen Flow Rate 4 07/27/22 13:01 07/27/22 13:01 07/27/22 13:26 Temperature Pulse Rate 114 H 106 H Respiratory Rate 38 H 20 Blood Pressure 156/93 H Pulse Oximetry 97 96 Oxygen Delivery Method Nasal Cannula Nasal Cannula Oxygen Flow Rate 4 2 Oxygen Delivery Method Nasal Cannula Oxygen Flow Rate 2 Narrative Exam Narrative: GEN:? Elderly appearing female, alert and oriented x 3, not in any acute distress, calm on O2 supplementation HEENT: Atraumatic, pupils are equal round reactive to light, extraocular movements are intact, nares are clear.? Throat is clear without any exudates, erythema. HEART: Regular rate and rhythm without murmur, clicks, rubs.? No carotid bruits, pulses are equal in upper and lower extremities, no edema bilateral lower extremities. LUNGS:Lungs coarse bilaterally right greater than left, mild wheeze left anterior chest, no rales, no crackles, chest moves symmetrically, no tachypnea.? ABD:bowel sounds normal, soft, non-tender, no guarding, rebound, rigidity, no masses noted, no hepatosplenomegaly :No CVA tenderness MSCL: Non-tender, no muscle atrophy, muscles strength 5/5 upper and lower extremities, full range of motion NEURO:CN 2-12 intact, sensation normal SKIN:? No rash, erythema or other skin changes Objective Labs 07/27/22 11:50 07/27/22 11:50 Labs: Laboratory Results - last 24 hr 07/27/22 07/27/22 07/27/22 11:50 11:50 11:50 WBC 14.3 H RBC 4.19 Hgb 11.5 L Hct 36.5 MCV 87.2 MCH 27.6 MCHC 31.6 RDW 14.7 Plt Count 397 Neut % (Auto) Not Reportable Lymph % (Auto) Not Reportable [place] % (Auto) Not Reportable Eos % (Auto) Not Reportable Baso % (Auto) Not Reportable Lymph # (Auto) Not Reportable [place] # (Auto) Not Reportable Baso # (Auto) Not Reportable Total Counted 100 Seg Neutrophils % 83.0 H Lymphocytes % (Manual) 7.0 L Monocytes % (Manual) 10.0 Neutrophils # (Manual) 11877 H RBC Morphology Normal morphology PT 16.0 H INR 1.4 H APTT 42 H Sodium 133 L Potassium 3.8 Chloride 98 Carbon Dioxide 28 BUN 13 Creatinine 0.67 Estimated GFR > 60 BUN/Creatinine Ratio 19.4 Glucose 163 H Lactate Calcium 9.2 Total Bilirubin 0.5 AST 25 ALT 21 Alkaline Phosphatase 78 Total Creatine Kinase CK-MB (CK-2) CK-MB (CK-2) Rel Index Troponin I NT-Pro-B Natriuret Pep Total Protein 6.6 Albumin 3.3 L Globulin 3.3 Albumin/Globulin Ratio 1.0 Lipase 282 Procalcitonin 0.24 Chlamy pneumoniae PCR Adenovirus (PCR) B. pertussis DNA (PCR) B.parapertussis DNA PCR Coronavirus OC43 (PCR) Coronavirus HKU1 (PCR) Coronavirus 229E (PCR) SARS-CoV-2 (PCR) Coronavirus NL63 (PCR) Human Metapneumovir PCR Influenza Type A (PCR) Influenza Type B (PCR) M. pneumoniae (PCR) Parainfluenza 1 (PCR) Parainfluenza 2 (PCR) Parainfluenza 3 (PCR) Parainfluenza 4 (PCR) RSV (PCR) Entero/Rhino (PCR) 07/27/22 07/27/22 07/27/22 11:50 11:50 11:50 WBC RBC Hgb Hct MCV MCH MCHC RDW Plt Count Neut % (Auto) Lymph % (Auto) [place] % (Auto) Eos % (Auto) Baso % (Auto) Lymph # (Auto) [place] # (Auto) Baso # (Auto) Total Counted Seg Neutrophils % Lymphocytes % (Manual) Monocytes % (Manual) Neutrophils # (Manual) RBC Morphology PT INR APTT Sodium Potassium Chloride Carbon Dioxide BUN Creatinine Estimated GFR BUN/Creatinine Ratio Glucose Lactate 1.4 Calcium Total Bilirubin AST ALT Alkaline Phosphatase Total Creatine Kinase 111 CK-MB (CK-2) 1.99 CK-MB (CK-2) Rel Index 1.8 Troponin I < 0.012 NT-Pro-B Natriuret Pep 371 H Total Protein Albumin Globulin Albumin/Globulin Ratio Lipase Procalcitonin Chlamy pneumoniae PCR Not detected Adenovirus (PCR) Not detected B. pertussis DNA (PCR) Not detected B.parapertussis DNA PCR Not detected Coronavirus OC43 (PCR) Not detected Coronavirus HKU1 (PCR) Not detected Coronavirus 229E (PCR) Not detected SARS-CoV-2 (PCR) Not detected Coronavirus NL63 (PCR) Not detected Human Metapneumovir PCR Not detected Influenza Type A (PCR) Not detected Influenza Type B (PCR) Not detected M. pneumoniae (PCR) Not detected Parainfluenza 1 (PCR) Not detected Parainfluenza 2 (PCR) Not detected Parainfluenza 3 (PCR) Not detected Parainfluenza 4 (PCR) Not detected RSV (PCR) Not detected Entero/Rhino (PCR) Detected H Assessment & Plan Assessment & Plan narrative: 1. Bilateral pneumonia. Treat with Levaquin and vancomycin in a patient who has penicillin and sulfa allergy and on chronic prednisone. Follow labs and clinically. 2. Underlying bronchiectasis. Treat as per treatment of pneumonia. 3. 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 Increase dose to double dose for 3 days of prednisone to prevent adrenal insufficiency we will use prednisone 5 mg in lieu of 4 mg due to pharmacy availability. Also 1 dose of Solu-Medrol IV 125 mg given in the ER. 4. Iatrogenic elevated blood sugars. Continue Basaglar 15 units daily subQ. 5. Chronic pain. Continue gabapentin and tramadol doses per home schedule. 6. Acute and chronic nausea. Continue metoclopramide. Also provide ondansetron as needed. 7. Hypertension. Continue patient's regular medication. 8. Hyperlipidemia. Continue rosuvastatin. 9. History of chronic kidney disease. The stable without compromise. Continue to monitor. 10. GERD. Provide pantoprazole 40 mg daily. 11. Entero/rhino virus. Isolation precautions. 12. Astham and allergies. Provide Singulair 10 mg daily and nebulized treatment as needed. Follow labs and clinically. DVT/PE prophylaxis. Enoxaparin 40 mg subQ daily GI prophylaxis: Daily Code status: DNR. This was discussed with the patient Due to the severity and complexity of the patient's diagnoses, Patient is admitted to inpatient with expectation that she will be in the hospital more than 2 midnights. COVID-19 COVID-19 status: Negative Quality VTE Deep Vein Thrombosis/Pulmonary Embolism Present on Admission: No MIPS - Admit I confirm the patient?s Advance Care Plan is present, Code status is documented, Surrogate decision maker is in patient?s record [If Yes, STOP here]: Yes MIPS - Meds 'Current medications' to include all prescriptions, [id number] products, herbals, cannabis/cannabidiol products, and vitamin/mineral/dietary (nutrit ional) supplements. I have utilized all available resources to obtain, update, or review the patient?s current medications. [If Yes, STOP here]: Yes
--- NOTE | 2022-07-27 14:16 | PC.NURSE ---
[facility] Normal Saline running per JUN.
[2022-07-27] MEDS: ENOXAPARIN 40 MG/0.4 ML SYRINGE SUBCUT (15:38)
[2022-07-27] MEDS: ONDANSETRON 4 MG/2 ML INJ IV (15:39)
[2022-07-27] MEDS: PANTOPRAZOLE DR 40 MG TABLET PO (15:39)
[2022-07-27] MEDS: ACYCLOVIR 400 MG TABLET PO ×2 (15:39→20:39)
[2022-07-27] MEDS: levoFLOXacin 750 MG/150 ML PIGGYBACK 100 MG IV (15:40)
[2022-07-27] MEDS: predniSONE 5 MG TABLET PO ×2 (15:40→20:39)
[2022-07-27] MEDS: GABAPENTIN 600 MG TABLET PO ×2 (15:40→20:38)
[2022-07-27] MEDS: SODIUM CHLORIDE 0.9% 500 ML 21 ML IV (15:41)
[2022-07-27] MEDS: METOCLOPRAMIDE HCL 5 MG TABLET 10 MG PO (17:45)
[2022-07-27] MEDS: CODEINE/ACETAMINOPHEN 30/300 TABLET 1 TAB PO (18:31)
[2022-07-27] MEDS: ALBUTEROL 2.5 MG/3 ML NEB (ADULT) INH ×2 (19:34→23:12)
[2022-07-27] MEDS: BUDESONIDE 0.5 MG/2 ML NEB INH (19:34)
[2022-07-27] MEDS: MYCOPHENOLATE MOFETIL 500 MG TABLET 750 MG PO (20:38)
[2022-07-27] MEDS: ATORVASTATIN 20 MG TABLET PO (20:38)
[2022-07-27] MEDS: CALCIUM CARBONATE 500 MG TAB PO (20:38)
[2022-07-27] MEDS: MELATONIN 3 MG TABLET 6 MG PO (20:39)
[2022-07-28] VITALS (7 sets, daily range): BP systolic 100; BP diastolic 47–49; PULSE 71–90; RESP 16–20; TEMP 36.1–36.3; O2SAT 94–99
[2022-07-28] MEDS: VANCOMYCIN 750 MG/150 ML PIGGYBACK 150 MG IV ×2 (00:43→12:17)
[2022-07-28 05:25] LABS: Add Manual Diff / Slide Review NO; Basophils Absolute Auto 0 /uL (0-100); Basophils Percent Auto 0.1 % (0-2); Eosinophils Absolute Auto 0 /uL (0-450); Hematocrit 31.4 % (36-46); Hemoglobin 9.9 g/dL (12.0-16.0); Lymphocytes Absolute Auto 600 /uL (1100-4500); Lymphocytes Percent Auto 6.2 % (25-40); Mean Corpuscular HGB Conc 31.6 % (30-36); Mean Corpuscular Hemoglobin 28.2 PG (26-34); Mean Corpuscular Volume 89.3 fL (80-100); Monocytes Absolute Auto 300 /uL (0-900); Monocytes Percent Auto 3.7 % (3-14); Neutrophils Absolute Auto 8600 /uL (1500-7000); Platelet Count 326 X10^3/uL (150-400); Red Blood Cell Count 3.52 X10^6/uL (4.0-5.2); Red Cell Distribution Width 14.7 % (11.6-14.8); White Blood Cell Count 9.6 X10^3/uL (4.5-11.0)
[2022-07-28 05:35] LABS: Alanine Aminotransferase 17 IU/L (<35); Albumin 2.8 g/dL (3.5-5.0); Alkaline Phosphatase 57 U/L (38-126); Aspartate Aminotransferase 19 IU/L (14-36); BUN Creatinine Ratio 22.5 (6-22); Bilirubin Total 0.2 mg/dL (0.2-1.3); Blood Urea Nitrogen 20 mg/dL (7-17); Calcium 8.3 mg/dL (8.4-10.2); Carbon Dioxide 24 mmol/L (22-32); Chloride 101 mmol/L (98-107); Estimated Glomerular Filt Rate > 60 mL/min (>60); Globulin 2.7 g/dL (1.7-4.1); Glucose 145 mg/dL (80-110); HEMOLYSIS < 15 (0-50); Potassium 4.4 mmol/L (3.4-5.1); Sodium 135 mmol/L (137-145); Total Protein 5.5 g/dL (6.3-8.2)
[2022-07-28 05:42] LABS: Hemoglobin A1C% w Est Avg Glu 6.6 % (4.0-6.0)
[2022-07-28 05:47] LABS: C-Reactive Protein Quant 24.2 mg/dL (<1.0)
[2022-07-28] MEDS: PANTOPRAZOLE DR 40 MG TABLET PO (06:41)
[2022-07-28] MEDS: levoFLOXacin 250 MG TABLET 750 MG PO (06:41)
[2022-07-28] MEDS: ALBUTEROL 2.5 MG/3 ML NEB (ADULT) INH ×4 (08:14→22:41)
[2022-07-28] MEDS: BUDESONIDE 0.5 MG/2 ML NEB INH ×2 (08:14→19:20)
[2022-07-28] MEDS: TRAMADOL 50 MG TABLET 100 MG PO (08:40)
[2022-07-28] MEDS: FOLIC ACID 1 MG TABLET PO (08:41)
[2022-07-28] MEDS: ACYCLOVIR 400 MG TABLET PO ×2 (08:41→20:53)
[2022-07-28] MEDS: LACTOBACILLUS ACIDOPHILUS TABLET 1 EACH PO (08:41)
[2022-07-28] MEDS: CHOLECALCIFEROL (VITAMIN D3) 1,000 UNIT TABLET 1000 UNIT PO (08:41)
[2022-07-28] MEDS: CALCIUM CARBONATE 500 MG TAB PO ×2 (08:41→20:52)
[2022-07-28] MEDS: predniSONE 5 MG TABLET PO ×2 (08:41→20:53)
[2022-07-28] MEDS: MYCOPHENOLATE MOFETIL 500 MG TABLET 750 MG PO ×2 (08:41→20:53)
[2022-07-28] MEDS: METOCLOPRAMIDE HCL 5 MG TABLET 10 MG PO ×3 (08:41→16:41)
[2022-07-28] MEDS: GABAPENTIN 600 MG TABLET PO ×3 (08:43→20:53)
[2022-07-28] MEDS: POTASSIUM CHLORIDE 20 MEQ TAB PO (08:43)
[2022-07-28] MEDS: ENOXAPARIN 40 MG/0.4 ML SYRINGE SUBCUT (08:48)
[2022-07-28] MEDS: CODEINE/ACETAMINOPHEN 30/300 TABLET 1 TAB PO (11:02)
[2022-07-28] MEDS: INSULIN GLARGINE 100 UNIT/ML 3ML PEN 15 UNIT SUBCUT (11:04)
--- NOTE | 2022-07-28 11:17 | CM.DANOTE ---
Initial Discharge Assessment Note: Case reviewed, met with patient. Introduced self and role. Payer: Medicare and [facility] PCP: Donny Avendano 72 year old female admitted yesterday with fever and SOB. PMH includes bronchiectasis and Peñuelas's disease, on daily prednisone. She was diagnosed with bilateral pneumonia. She is currently on oxygen via [place]. Patient lives alone in her mobile home in [place]. She is cheerful, alert and oriented. She does not drive and relies on her [employer] friends to transport her to appointments and go grocery shopping for her, etc. She also receives Meals on Wheels. She has received Home Health ([facility]) in past. When addressed with her, she is not sure if she wants, but let her know we will assess daily if may need. Sent HH Referral to [facility], her preference. Plan: When medically cleared, discharge home, if patient agrees to HH, send follow up to [facility]. Neighbor can transport on dc. ROGER Discharge Planning/Care Management CM Discharge Assessment Start: 07/28/22 11:01 Freq: Status: Active Protocol: Document 07/28/22 11:01 (Rec: 07/28/22 11:17 [id number]) Discharge Planning Assessment Assigned Sewer Builder Dulce Thompson RN/LAZARAP Advance Directives? No Advance Directives on File No History Provided By Patient,Medical Record Prior Living Arrangements Mobile home Household Members none Type of transporation used prior to Relies on Others admit Comment Her [employer] friends drive her to her appointments and shop for her Independent with ADL's Yes Is patient alert and oriented? Yes Needs Assistance With Home Chores / Shopping Comment Receives Meals on Wheels Caregiver for Another No DME Already Rented / Owned FWW / Walker Comment Walk in shower, has shower chair. Comment Possible Home Health, she has had [facility] in past but states she is not sure if she needs. Barriers to Discharge No Discharge Plan Home Transportation Arrangement Neighbor to transport Referrals Initiated None needed Additional Comment Possible [facility] on dc, depends, watch for need If patient plan is home with home health Yes : Has signed face to face form been completed? Whiteboard Updated in Patient Room with Yes name and ext. # of Sewer Builder Review Status In Process Next Review Type Continued Stay Review
--- NOTE | 2022-07-28 11:20 | PM.PN.1 ---
Subjective Subjective Interval history: Feels much better but still coughing some and trying to get up mucus but difficult to do. Exam Vital Signs (past 8 hours): - 07/28/22 08:14 07/28/22 08:57 07/28/22 07:00 Temperature 97.4 F L Pulse Rate 71 90 90 Respiratory Rate 18 20 Blood Pressure 100/49 L 100/49 L Pulse Oximetry 95 98 Oxygen Delivery Method Nasal Cannula Oxygen Flow Rate 3 3 Fraction of Inspired Oxygen 32 Fraction of Inspired Oxygen 32 SaO2/FiO2 Ratio 296 Oxygen Delivery Method Nasal Cannula Oxygen Flow Rate 3 Narrative Exam Narrative: GEN:? not in any acute distress, calm on O2 supplementation HEENT: Atraumatic, pupils are equal round reactive to light, extraocular movements are intact, nares are clear.? Throat is clear without any exudates, erythema. HEART: Regular rate and rhythm without murmur, clicks, rubs.? No carotid bruits, pulses equal bilaterally. LUNGS:Lungs? coarse bilaterally right greater than left, occasional mild wheeze left anterior chest, no rales, no crackles, chest moves symmetrically, no tachypnea.? ABD:bowel sounds normal, soft, non-tender, no guarding, rebound, rigidity, no masses noted, no hepatosplenomegaly :No CVA tenderness MSCL: Non-tender, no muscle atrophy, muscles strength 5/5 upper and lower extremities, full range of motion NEURO:CN 2-12 intact, sensation normal SKIN:? No rash, erythema or other skin changes Objective Labs 07/28/22 05:05 07/28/22 05:05 Labs: Laboratory Results - last 24 hr 07/27/22 07/27/22 07/27/22 11:50 11:50 11:50 WBC 14.3 H RBC 4.19 Hgb 11.5 L Hct 36.5 MCV 87.2 MCH 27.6 MCHC 31.6 RDW 14.7 Plt Count 397 Neut % (Auto) Not Reportable Lymph % (Auto) Not Reportable [place] % (Auto) Not Reportable Eos % (Auto) Not Reportable Baso % (Auto) Not Reportable Neut # (Auto) Lymph # (Auto) Not Reportable [place] # (Auto) Not Reportable Eos # (Auto) Baso # (Auto) Not Reportable Total Counted 100 Seg Neutrophils % 83.0 H Lymphocytes % (Manual) 7.0 L Monocytes % (Manual) 10.0 Neutrophils # (Manual) 21557 H RBC Morphology Normal morphology PT 16.0 H INR 1.4 H APTT 42 H Sodium 133 L Potassium 3.8 Chloride 98 Carbon Dioxide 28 BUN 13 Creatinine 0.67 Estimated GFR > 60 BUN/Creatinine Ratio 19.4 Glucose 163 H Hemoglobin A1c Lactate Calcium 9.2 Total Bilirubin 0.5 AST 25 ALT 21 Alkaline Phosphatase 78 Total Creatine Kinase CK-MB (CK-2) CK-MB (CK-2) Rel Index Troponin I C-Reactive Protein NT-Pro-B Natriuret Pep Total Protein 6.6 Albumin 3.3 L Globulin 3.3 Albumin/Globulin Ratio 1.0 Lipase 282 Procalcitonin 0.24 Chlamy pneumoniae PCR Adenovirus (PCR) B. pertussis DNA (PCR) B.parapertussis DNA PCR Coronavirus OC43 (PCR) Coronavirus HKU1 (PCR) Coronavirus 229E (PCR) SARS-CoV-2 (PCR) Coronavirus NL63 (PCR) Human Metapneumovir PCR Influenza Type A (PCR) Influenza Type B (PCR) M. pneumoniae (PCR) Parainfluenza 1 (PCR) Parainfluenza 2 (PCR) Parainfluenza 3 (PCR) Parainfluenza 4 (PCR) RSV (PCR) Entero/Rhino (PCR) 07/27/22 07/27/22 07/27/22 11:50 11:50 11:50 WBC RBC Hgb Hct MCV MCH MCHC RDW Plt Count Neut % (Auto) Lymph % (Auto) [place] % (Auto) Eos % (Auto) Baso % (Auto) Neut # (Auto) Lymph # (Auto) [place] # (Auto) Eos # (Auto) Baso # (Auto) Total Counted Seg Neutrophils % Lymphocytes % (Manual) Monocytes % (Manual) Neutrophils # (Manual) RBC Morphology PT INR APTT Sodium Potassium Chloride Carbon Dioxide BUN Creatinine Estimated GFR BUN/Creatinine Ratio Glucose Hemoglobin A1c Lactate 1.4 Calcium Total Bilirubin AST ALT Alkaline Phosphatase Total Creatine Kinase 111 CK-MB (CK-2) 1.99 CK-MB (CK-2) Rel Index 1.8 Troponin I < 0.012 C-Reactive Protein NT-Pro-B Natriuret Pep 371 H Total Protein Albumin Globulin Albumin/Globulin Ratio Lipase Procalcitonin Chlamy pneumoniae PCR Not detected Adenovirus (PCR) Not detected B. pertussis DNA (PCR) Not detected B.parapertussis DNA PCR Not detected Coronavirus OC43 (PCR) Not detected Coronavirus HKU1 (PCR) Not detected Coronavirus 229E (PCR) Not detected SARS-CoV-2 (PCR) Not detected Coronavirus NL63 (PCR) Not detected Human Metapneumovir PCR Not detected Influenza Type A (PCR) Not detected Influenza Type B (PCR) Not detected M. pneumoniae (PCR) Not detected Parainfluenza 1 (PCR) Not detected Parainfluenza 2 (PCR) Not detected Parainfluenza 3 (PCR) Not detected Parainfluenza 4 (PCR) Not detected RSV (PCR) Not detected Entero/Rhino (PCR) Detected H 07/28/22 07/28/22 07/28/22 05:05 05:05 05:05 WBC 9.6 RBC 3.52 L Hgb 9.9 L Hct 31.4 L MCV 89.3 MCH 28.2 MCHC 31.6 RDW 14.7 Plt Count 326 Neut % (Auto) 90.0 H Lymph % (Auto) 6.2 L [place] % (Auto) 3.7 Eos % (Auto) 0.0 L Baso % (Auto) 0.1 Neut # (Auto) 8600 H Lymph # (Auto) 600 L [place] # (Auto) 300 Eos # (Auto) 0 Baso # (Auto) 0 Total Counted Seg Neutrophils % Lymphocytes % (Manual) Monocytes % (Manual) Neutrophils # (Manual) RBC Morphology PT INR APTT Sodium 135 L Potassium 4.4 Chloride 101 Carbon Dioxide 24 BUN 20 H Creatinine 0.89 Estimated GFR > 60 BUN/Creatinine Ratio 22.5 H Glucose 145 H Hemoglobin A1c 6.6 H Lactate Calcium 8.3 L Total Bilirubin 0.2 AST 19 ALT 17 Alkaline Phosphatase 57 Total Creatine Kinase CK-MB (CK-2) CK-MB (CK-2) Rel Index Troponin I C-Reactive Protein 24.2 H NT-Pro-B Natriuret Pep Total Protein 5.5 L Albumin 2.8 L Globulin 2.7 Albumin/Globulin Ratio 1.0 Lipase Procalcitonin Chlamy pneumoniae PCR Adenovirus (PCR) B. pertussis DNA (PCR) B.parapertussis DNA PCR Coronavirus OC43 (PCR) Coronavirus HKU1 (PCR) Coronavirus 229E (PCR) SARS-CoV-2 (PCR) Coronavirus NL63 (PCR) Human Metapneumovir PCR Influenza Type A (PCR) Influenza Type B (PCR) M. pneumoniae (PCR) Parainfluenza 1 (PCR) Parainfluenza 2 (PCR) Parainfluenza 3 (PCR) Parainfluenza 4 (PCR) RSV (PCR) Entero/Rhino (PCR) PFS Medical History Loudoun's disease Arthritis Asthma Chronic cough CKD (chronic kidney disease), stage III Diabetes Edema GERD (gastroesophageal reflux disease) Hiatal hernia HLD (hyperlipidemia) HTN (hypertension) Incontinence Interstitial lung disease Nasal polyp Neuropathy Pneumonia Polymyositis Sarcoidosis SCC (squamous cell carcinoma) Surgical History H/O wrist surgery History of arthroplasty of left knee History of arthroplasty of right knee Hx of bilateral cataract extraction Hx of cholecystectomy Hx of hernia repair Hx of tonsillectomy Status post correction of deviated nasal septum Social History household members: none Smoking Status: Never smoker alcohol intake: current Assessment & Plan Assessment & Plan narrative: 1. Bilateral pneumonia.? Treat with Levaquin and vancomycin in a patient who has penicillin and sulfa allergy and on chronic prednisone.? Follow labs and clinically. 2. Underlying bronchiectasis.? Treat as per treatment of pneumonia. 3. 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 Increase dose to double dose for 3 days of prednisone to prevent adrenal insufficiency we will use prednisone 5 mg in lieu of 4 mg due to pharmacy availability.? Also 1 dose of Solu-Medrol IV 125 mg given in the ER. A further dose of Solu-Medrol IV 125 mg today. 4. Iatrogenic elevated blood sugars.? Continue Basaglar 15 units daily subQ. Hemoglobin A1c 6.6. 5. Chronic pain.? Continue gabapentin and tramadol doses per home schedule. 6. Acute and chronic nausea.? Continue metoclopramide.? Also provide ondansetron as needed. 7. Hypertension.? Continue patient's regular medication. Controlled. 8. Hyperlipidemia.? Continue rosuvastatin. 9. History of chronic kidney disease.? The stable without compromise.? Continue to monitor. 10. GERD.? Provide pantoprazole 40 mg daily. 11. Entero/rhino virus.? Isolation precautions. 12. Astham and allergies.? Provide Singulair 10 mg daily and nebulized treatment as needed. Follow labs and clinically. Quality VTE Deep Vein Thrombosis/Pulmonary Embolism Present on Admission: No
[2022-07-28] MEDS: methylPREDNISolone 125 MG/2 ML VIAL IV (12:17)
[2022-07-28 18:20] LABS: MRSA (Nasal) PCR Not Detected (Not Detect)
[2022-07-28] MEDS: MELATONIN 3 MG TABLET 6 MG PO (20:52)
[2022-07-28] MEDS: ATORVASTATIN 20 MG TABLET PO (20:53)
[2022-07-29] MEDS: VANCOMYCIN 750 MG/150 ML PIGGYBACK 150 MG IV ×2 (01:06→12:48)
[2022-07-29 06:11] LABS: Hemoglobin 10.4 g/dL (12.0-16.0); Mean Corpuscular HGB Conc 30.7 % (30-36); Mean Corpuscular Hemoglobin 27.4 PG (26-34); Mean Corpuscular Volume 89.5 fL (80-100); Platelet Count 362 X10^3/uL (150-400); Red Cell Distribution Width 14.7 % (11.6-14.8); White Blood Cell Count 19.4 X10^3/uL (4.5-11.0)
[2022-07-29 06:16] LABS: Add Manual Diff / Slide Review YES
[2022-07-29 06:20] LABS: Alanine Aminotransferase 20 IU/L (<35); Albumin 3.1 g/dL (3.5-5.0); Albumin Globulin Ratio 1.1 (1.0-2.8); Alkaline Phosphatase 63 U/L (38-126); Aspartate Aminotransferase 29 IU/L (14-36); BUN Creatinine Ratio 27.1 (6-22); Bilirubin Total 0.2 mg/dL (0.2-1.3); Blood Urea Nitrogen 32 mg/dL (7-17); Calcium 8.4 mg/dL (8.4-10.2); Carbon Dioxide 25 mmol/L (22-32); Chloride 98 mmol/L (98-107); Estimated Glomerular Filt Rate 49 mL/min (>60); Globulin 2.9 g/dL (1.7-4.1); Glucose 162 mg/dL (80-110); HEMOLYSIS < 15 (0-50); Sodium 134 mmol/L (137-145)
[2022-07-29] MEDS: levoFLOXacin 250 MG TABLET 750 MG PO (06:26)
[2022-07-29] MEDS: PANTOPRAZOLE DR 40 MG TABLET PO (06:27)
[2022-07-29] MEDS: METOCLOPRAMIDE HCL 5 MG TABLET 10 MG PO (06:27)
[2022-07-29 07:35] LABS: Neutrophils Absolute Manual 16490 /uL (3000-5900); Total Cells Counted 100
[2022-07-29 07:36] LABS: RBC Morphology Normal Morphology
[2022-07-29 08:15] VITALS: BP 106/55; PULSE 93; RESP 18; TEMP 36.1; O2SAT 95
[2022-07-29] MEDS: TRAMADOL 50 MG TABLET 100 MG PO (09:22)
[2022-07-29] MEDS: predniSONE 5 MG TABLET PO ×2 (09:23→20:08)
[2022-07-29] MEDS: MYCOPHENOLATE MOFETIL 500 MG TABLET 750 MG PO ×2 (09:23→20:07)
[2022-07-29] MEDS: LOSARTAN 25 MG TABLET PO (09:23)
[2022-07-29] MEDS: LACTOBACILLUS ACIDOPHILUS TABLET 1 EACH PO (09:23)
[2022-07-29] MEDS: POTASSIUM CHLORIDE 20 MEQ TAB PO (09:24)
[2022-07-29] MEDS: ACYCLOVIR 400 MG TABLET PO ×2 (09:24→20:07)
[2022-07-29] MEDS: GABAPENTIN 600 MG TABLET PO ×3 (09:24→20:07)
[2022-07-29] MEDS: FOLIC ACID 1 MG TABLET PO (09:24)
[2022-07-29] MEDS: CHOLECALCIFEROL (VITAMIN D3) 1,000 UNIT TABLET 1000 UNIT PO (09:24)
[2022-07-29] MEDS: INSULIN GLARGINE 100 UNIT/ML 3ML PEN 15 UNIT SUBCUT (09:25)
[2022-07-29] MEDS: ENOXAPARIN 40 MG/0.4 ML SYRINGE SUBCUT (09:25)
[2022-07-29] MEDS: CALCIUM CARBONATE 500 MG TAB PO ×2 (09:28→20:08)
[2022-07-29] MEDS: BUDESONIDE 0.5 MG/2 ML NEB INH ×2 (09:43→19:30)
[2022-07-29] MEDS: ALBUTEROL 2.5 MG/3 ML NEB (ADULT) INH ×3 (09:43→19:27)
[2022-07-29 10:06] VITALS: PULSE 93; RESP 16; O2SAT 99
[2022-07-29] MEDS: METOCLOPRAMIDE HCL 5 MG TABLET PO ×2 (12:45→17:13)
[2022-07-29 13:46] LABS: Vancomycin Trough 16.6 ug/mL (10-20)
[2022-07-29] MEDS: VANCOMYCIN TROUGH 1 REQUEST MISC (14:14)
--- NOTE | 2022-07-29 14:52 | PM.PN.1 ---
Subjective Subjective Interval history: Feels much better. Continued cough, oxygenation improving but does desaturate today with minimal activity. Feels weak, ordered for PT/OT. Exam Vital Signs (past 8 hours): - 07/29/22 08:15 07/29/22 10:06 Temperature 96.9 F L Pulse Rate 93 H 93 H Respiratory Rate 18 16 Blood Pressure 106/55 L Pulse Oximetry 95 99 Oxygen Delivery Method Nasal Cannula Oxygen Flow Rate 1 1 Fraction of Inspired Oxygen 24 Fraction of Inspired Oxygen 24 SaO2/FiO2 Ratio 412 Oxygen Delivery Method Nasal Cannula Oxygen Flow Rate 1 Narrative Exam Narrative: GEN:? not in any acute distress, calm on O2 supplementation HEENT: Atraumatic, pupils are equal round reactive to light, extraocular movements are intact, nares are clear.? Throat is clear without any exudates, erythema. HEART: Regular rate and rhythm without murmur, clicks, rubs.? No carotid bruits, pulses equal bilaterally. LUNGS:Lungs? coarse bilaterally right greater than left, occasional mild wheeze left anterior chest, no rales, no crackles, chest moves symmetrically, no tachypnea.? ABD:bowel sounds normal, soft, non-tender, no guarding, rebound, rigidity, no masses noted, no hepatosplenomegaly :No CVA tenderness MSCL: Non-tender, no muscle atrophy, muscles strength 5/5 upper and lower extremities, full range of motion NEURO:CN 2-12 intact, sensation normal SKIN:? No rash, erythema or other skin changes Objective Labs 07/29/22 05:10 07/29/22 05:10 Labs: Laboratory Results - last 24 hr 07/28/22 07/29/22 07/29/22 16:55 05:10 05:10 WBC 19.4 H D RBC 3.80 L Hgb 10.4 L Hct 34.0 L MCV 89.5 MCH 27.4 MCHC 30.7 RDW 14.7 Plt Count 362 Neut % (Auto) Not Reportable Lymph % (Auto) Not Reportable [place] % (Auto) Not Reportable Eos % (Auto) Not Reportable Baso % (Auto) Not Reportable Lymph # (Auto) Not Reportable [place] # (Auto) Not Reportable Baso # (Auto) Not Reportable Total Counted 100 Seg Neutrophils % 84.0 H Band Neutrophils % 1.0 L Lymphocytes % (Manual) 7.0 L Monocytes % (Manual) 8.0 Neutrophils # (Manual) 03254 H RBC Morphology Normal morphology Sodium 134 L Potassium 4.0 Chloride 98 Carbon Dioxide 25 BUN 32 H Creatinine 1.18 H Estimated GFR 49 L BUN/Creatinine Ratio 27.1 H Glucose 162 H Calcium 8.4 Total Bilirubin 0.2 AST 29 ALT 20 Alkaline Phosphatase 63 Total Protein 6.0 L Albumin 3.1 L Globulin 2.9 Albumin/Globulin Ratio 1.1 Nasal Screen MRSA (PCR) Not detected Vancomycin Trough 07/29/22 12:45 WBC RBC Hgb Hct MCV MCH MCHC RDW Plt Count Neut % (Auto) Lymph % (Auto) [place] % (Auto) Eos % (Auto) Baso % (Auto) Lymph # (Auto) [place] # (Auto) Baso # (Auto) Total Counted Seg Neutrophils % Band Neutrophils % Lymphocytes % (Manual) Monocytes % (Manual) Neutrophils # (Manual) RBC Morphology Sodium Potassium Chloride Carbon Dioxide BUN Creatinine Estimated GFR BUN/Creatinine Ratio Glucose Calcium Total Bilirubin AST ALT Alkaline Phosphatase Total Protein Albumin Globulin Albumin/Globulin Ratio Nasal Screen MRSA (PCR) Vancomycin Trough 16.6 PFSH Medical History Mclean's disease Arthritis Asthma Chronic cough CKD (chronic kidney disease), stage III Diabetes Edema GERD (gastroesophageal reflux disease) Hiatal hernia HLD (hyperlipidemia) HTN (hypertension) Incontinence Interstitial lung disease Nasal polyp Neuropathy Pneumonia Polymyositis Sarcoidosis SCC (squamous cell carcinoma) Surgical History H/O wrist surgery History of arthroplasty of left knee History of arthroplasty of right knee Hx of bilateral cataract extraction Hx of cholecystectomy Hx of hernia repair Hx of tonsillectomy Status post correction of deviated nasal septum Social History household members: none Smoking Status: Never smoker alcohol intake: current Assessment & Plan Assessment & Plan narrative: 1. Bilateral pneumonia with acyte respiratory failure with hypoxia, secondary to rhinovirus with probable superimposed bacterial pneumonia. -? Treated initially with Levaquin and vancomycin in a patient who has penicillin and sulfa allergy and on chronic prednisone. MRSA swab negative, will discontinue vancomycin today. 2. Underlying pulmonary sarcoidosis.? Treat as per treatment of pneumonia. 3. Pulmonary sarcoidosis, - was given two doses of 125 mg of soludmedrol in the ER and shortly after admission. Now on slight increase at 5 mg BID, decrease to daily tomorrow. At home takes 4 mg daily per patient. 4. Iatrogenic elevated blood sugars.? Continue Basaglar 15 units daily subQ. Hemoglobin A1c 6.6. 5. Chronic pain.? Continue gabapentin and tramadol doses per home schedule. 6. Acute and chronic nausea.? Continue metoclopramide.? Also provide ondansetron as needed. 7. Hypertension.? Continue patient's regular medication. Controlled. 8. Hyperlipidemia.? Continue rosuvastatin. 9. History of chronic kidney disease.? The stable without compromise.? Continue to monitor. 10. GERD.? Provide pantoprazole 40 mg daily. 11. Entero/rhino virus.? Isolation precautions. 12. Asthma, chronic and allergies.? Provide Singulair 10 mg daily and nebulized treatment as needed. Follow labs and clinically. Quality VTE Deep Vein Thrombosis/Pulmonary Embolism Present on Admission: No
[2022-07-29 16:03] VITALS: PULSE 88; RESP 16; O2SAT 98
[2022-07-29 19:33] VITALS: PULSE 87; RESP 18; O2SAT 93
[2022-07-29 20:00] VITALS: BP 107/51; PULSE 107; RESP 20; TEMP 36.3; O2SAT 98
[2022-07-29] MEDS: ATORVASTATIN 20 MG TABLET PO (20:07)
[2022-07-29] MEDS: MELATONIN 3 MG TABLET 6 MG PO (20:07)
[2022-07-29 23:26] VITALS: O2SAT 96
[2022-07-30] VITALS (9 sets, daily range): BP systolic 98–101; BP diastolic 48–51; PULSE 90–110; RESP 17–24; TEMP 35.9–37.1; O2SAT 93–99
[2022-07-30] MEDS: PANTOPRAZOLE DR 40 MG TABLET PO (06:40)
[2022-07-30] MEDS: ENOXAPARIN 40 MG/0.4 ML SYRINGE SUBCUT (08:49)
[2022-07-30] MEDS: CHOLECALCIFEROL (VITAMIN D3) 1,000 UNIT TABLET 1000 UNIT PO (08:50)
[2022-07-30] MEDS: MYCOPHENOLATE MOFETIL 500 MG TABLET 750 MG PO ×2 (08:50→20:50)
[2022-07-30] MEDS: GABAPENTIN 600 MG TABLET PO ×3 (08:50→20:50)
[2022-07-30] MEDS: ACYCLOVIR 400 MG TABLET PO ×2 (08:50→20:50)
[2022-07-30] MEDS: CALCIUM CARBONATE 500 MG TAB PO ×2 (08:50→20:50)
[2022-07-30] MEDS: FOLIC ACID 1 MG TABLET PO (08:50)
[2022-07-30] MEDS: predniSONE 5 MG TABLET PO (08:50)
[2022-07-30] MEDS: POTASSIUM CHLORIDE 20 MEQ TAB PO (08:50)
[2022-07-30] MEDS: METOCLOPRAMIDE HCL 5 MG TABLET PO ×3 (08:50→16:21)
[2022-07-30] MEDS: LACTOBACILLUS ACIDOPHILUS TABLET 1 EACH PO (08:50)
[2022-07-30] MEDS: INSULIN GLARGINE 100 UNIT/ML 3ML PEN 15 UNIT SUBCUT (08:56)
[2022-07-30] MEDS: ALBUTEROL 2.5 MG/3 ML NEB (ADULT) INH ×3 (09:25→19:36)
[2022-07-30] MEDS: BUDESONIDE 0.5 MG/2 ML NEB INH ×2 (09:26→19:36)
--- NOTE | 2022-07-30 10:15 | PT.IIE ---
Current Diagnoses Pneumonia, unspecified organism (07/27/22) Surgical History (Last Reviewed 07/27/22 @ 14:00 by Iesha Orellana MD) H/O wrist surgery History of arthroplasty of left knee History of arthroplasty of right knee Hx of bilateral cataract extraction Hx of cholecystectomy Hx of hernia repair Hx of tonsillectomy Status post correction of deviated nasal septum Medical History (Last Reviewed 07/27/22 @ 14:00 by Iesha Orellana MD) Carlisle's disease Arthritis Asthma Chronic cough CKD (chronic kidney disease), stage III Diabetes Edema GERD (gastroesophageal reflux disease) Hiatal hernia HLD (hyperlipidemia) HTN (hypertension) Incontinence Interstitial lung disease Nasal polyp Neuropathy Pneumonia Polymyositis Sarcoidosis SCC (squamous cell carcinoma) Physical Therapy Inpatient Evaluation/Re-Eval M1 PT/OT-IP Prior Functional Status Start: 07/30/22 09:28 Freq: NEEDED Status: Active Protocol: Document 07/30/22 09:56 TH (Rec: 07/30/22 10:15 [id number]) Medical Review Prior Functional Status Medical History Reviewed Yes: New compression fx L2, rhino virus pos, PNA Prior Functional Level (Other details) IND, lives alone, 2 steps to front door with rail, family lives nearby and can help, uses FWW at baseline, has walk in tub. Social History Household Members none Living Arrangements Mobile home Number of Floors (Floors) One Floor Number of Stairs To Enter/Railing? 2 with rail M2 PT-IP Current Condition Start: 07/30/22 09:28 Freq: NEEDED Status: Active Protocol: Document 07/30/22 09:56 TH (Rec: 07/30/22 10:15 [id number]) Physical Therapy Current Condition Current Condition Evaluation Date 07/30/22 Treatment Diagnosis Rhino virus pos. M3 PT-IP Subjective Start: 07/30/22 09:28 Freq: NEEDED Status: Active Protocol: Document 07/30/22 09:56 TH (Rec: 07/30/22 10:15 [id number]) Subjective Physical Therapy Visit Type Type Initial Evaluation Visit Start Time 09:30 Visit Stop Time 10:00 Total Visit Minutes 30 Notes RT present , Pt receiving a breathing RX sitting up in chair. RT assisted during PT eval. to assess O2 sats with activity. Number of ACCOUNT MAINTENANCE REPRESENTATIVE Visits 1 Physical Therapy Visit Comments Patient Goals To return home at PLOF Therapy Pain Assessment Pain When Pain Assessed no c/o kajal M4 PT-IP Mobility and Gait Start: 07/30/22 09:28 Freq: NEEDED Status: Active Protocol: Document 07/30/22 09:56 TH (Rec: 07/30/22 10:15 [id number]) PT-Transfer Assessment Sit to and From Stand Sit to and from Stand Standby Assistance Equipment Transfer Assistive Device Front Wheeled Walker Transfers Transfer Destination Chair Transfer Ability Level of Assist Standby Assistance Comments Mobility Comments O2 Sats dropped to 84 with sit <>stand and to [address] on RA. RT placed pt back on 2L O2 Sats increased to 92 Gait Assessment Gait Gait Assistance Required: Standby Assistance Comments Gait Comments march in place only due to decreased Sats and c/o of light headed Stair Climbing Assessment Comments Stair Climbing Comments unable PT-Balance Assessment Sitting Balance and Reactions Static Sitting Balance Ability Normal Dynamic Sitting Balance Ability Normal Standing Balance and Reactions Static Standing Balance Ability Normal Dynamic Standing Balance Ability Good M5 PT-IP Objective Assessments Start: 07/30/22 09:28 Freq: NEEDED Status: Active Protocol: Document 07/30/22 09:56 TH (Rec: 07/30/22 10:15 [id number]) Orientation Orientation/Cognition Level of Alertness Alert Orientation Name,Place,Situation Language Function Ability No Deficits Noted Safety Awareness Understands Safety Issues Memory Description No Deficits Noted Gross Range of Motion Upper Extremity ROM Assessment Within Functional Limits Lower Extremity ROM Assessment Within Functional Limits Strength Upper Extremity Strength Assessment Within Functional Limits Lower Extremity Strength Assessment Within Functional Limits Comments Strength Comments Decreased endurance M7 PT-IP Assessment and Plan Start: 07/30/22 09:28 Freq: NEEDED Status: Active Protocol: Document 07/30/22 09:56 TH (Rec: 07/30/22 10:15 [id number]) PT Summary Assessment and Plan Potential Rehabilitation Potential Good Status of Condition at Evaluation Evolving Summary Impairments Activity Tolerance Assessment Summary Pt presents with decreased endurance due to new onset rhino virus infection. Pt's saturation levels drop with mild activity. Her primary limitation is decreased endurance. Project pt will be able to go home wioth family assist once medically stable. Goals Bed Mobility Goal Independent Transfer Goal Independent Gait Goal Independent Other Goals up/down two steps with rail Frequency of Treatment Frequency Of Treatment Once a Day Treatment Plan Physical Therapy Treatment Plan Bed Mobility Training,Transfer Training,Gait Training, Therapeutic Exercise,Balance Retraining Precautions Other Precautions Fall risk, Decreased O2 sats with activity may need O2 Recommendations To Nursing Amount of Assist Needed Standby Assistance Discharge Recommendations PT Discharge Recommendations Home with Assistance Equipment Needed for Home Before none, pt has all necessary Discharge equipment at home Transportation Needs at Discharge Private Vehicle
--- NOTE | 2022-07-30 12:23 | PM.PN.1 ---
Subjective Subjective Interval history: Feels much better. Continued cough, oxygenation improving but does desaturate today with minimal activity. Feels weak, will continue with PT/OT. Exam Vital Signs (past 8 hours): - 07/30/22 08:51 07/30/22 07:47 07/30/22 09:32 Temperature 98.8 F Pulse Rate 107 H 90 Respiratory Rate 20 24 Blood Pressure 101/51 L 101/51 L Pulse Oximetry 96 93 Oxygen Delivery Method Nasal Cannula Oxygen Flow Rate 2 1 07/30/22 09:00 Temperature Pulse Rate Respiratory Rate Blood Pressure Pulse Oximetry Oxygen Delivery Method Nasal Cannula Oxygen Flow Rate Fraction of Inspired Oxygen 24 SaO2/FiO2 Ratio 408 Oxygen Delivery Method Nasal Cannula Oxygen Flow Rate 1 Narrative Exam Narrative: GEN:? not in any acute distress, calm on O2 supplementation HEENT: Atraumatic, pupils are equal round reactive to light, extraocular movements are intact, nares are clear.? Throat is clear without any exudates, erythema. HEART: Regular rate and rhythm without murmur, clicks, rubs.? No carotid bruits, pulses equal bilaterally. LUNGS:Lungs? coarse bilaterally right greater than left, occasional mild wheeze left anterior chest, no rales, no crackles, chest moves symmetrically, no tachypnea.? ABD:bowel sounds normal, soft, non-tender, no guarding, rebound, rigidity, no masses noted, no hepatosplenomegaly :No CVA tenderness MSCL: Non-tender, no muscle atrophy, muscles strength 5/5 upper and lower extremities, full range of motion NEURO:CN 2-12 intact, sensation normal SKIN:? No rash, erythema or other skin changes Objective Labs 07/29/22 05:10 07/29/22 05:10 Labs: Laboratory Results - last 24 hr 07/29/22 12:45 Vancomycin Trough 16.6 PFSH Medical History [place]'s disease Arthritis Asthma Chronic cough CKD (chronic kidney disease), stage III Diabetes Edema GERD (gastroesophageal reflux disease) Hiatal hernia HLD (hyperlipidemia) HTN (hypertension) Incontinence Interstitial lung disease Nasal polyp Neuropathy Pneumonia Polymyositis Sarcoidosis SCC (squamous cell carcinoma) Surgical History H/O wrist surgery History of arthroplasty of left knee History of arthroplasty of right knee Hx of bilateral cataract extraction Hx of cholecystectomy Hx of hernia repair Hx of tonsillectomy Status post correction of deviated nasal septum Social History household members: none Smoking Status: Never smoker alcohol intake: current Assessment & Plan Assessment & Plan narrative: 1. Bilateral pneumonia with acyte respiratory failure with hypoxia, secondary to rhinovirus with probable superimposed bacterial pneumonia. -? Treated initially with Levaquin and vancomycin in a patient who has penicillin and sulfa allergy and on chronic prednisone. MRSA swab negative, vancomycin discontinued 07/29. 2. Underlying pulmonary sarcoidosis.? Treat as per treatment of pneumonia. 3. Pulmonary sarcoidosis, - was given two doses of 125 mg of soludmedrol in the ER and shortly after admission. Now on slight increase at 5 mg BID, decrease to daily tomorrow. At home takes 4 mg daily per patient. 4. Iatrogenic elevated blood sugars.? Continue Basaglar 15 units daily subQ. Hemoglobin A1c 6.6. 5. Chronic pain.? Continue gabapentin and tramadol doses per home schedule. 6. Acute and chronic nausea.? Continue metoclopramide.? Also provide ondansetron as needed. 7. Hypertension.? Continue patient's regular medication. Controlled. 8. Hyperlipidemia.? Continue rosuvastatin. 9. History of chronic kidney disease.? The stable without compromise.? Continue to monitor. 10. GERD.? Provide pantoprazole 40 mg daily. 11. Entero/rhino virus.? Isolation precautions. 12. Asthma, chronic and allergies.? Provide Singulair 10 mg daily and nebulized treatment as needed. Follow labs and clinically. Quality VTE Deep Vein Thrombosis/Pulmonary Embolism Present on Admission: No
[2022-07-30] MEDS: ONDANSETRON 4 MG/2 ML INJ IV (18:31)
[2022-07-30] MEDS: MELATONIN 3 MG TABLET 6 MG PO (20:50)
[2022-07-30] MEDS: ATORVASTATIN 20 MG TABLET PO (20:50)
[2022-07-31] VITALS (14 sets, daily range): BP systolic 95–108; BP diastolic 42–59; PULSE 82–109; RESP 16–28; TEMP 35.9–36.9; O2SAT 93–99
[2022-07-31] MEDS: CODEINE/ACETAMINOPHEN 30/300 TABLET 1 TAB PO ×3 (03:34→21:17)
[2022-07-31] MEDS: ALBUTEROL 2.5 MG/3 ML NEB (ADULT) INH ×4 (03:53→19:38)
[2022-07-31] MEDS: SODIUM CHLORIDE 0.9% 500 ML 1000 ML IV (05:45)
[2022-07-31] MEDS: PANTOPRAZOLE DR 40 MG TABLET PO (06:56)
[2022-07-31] MEDS: levoFLOXacin 250 MG TABLET 750 MG PO (06:56)
[2022-07-31] MEDS: BUDESONIDE 0.5 MG/2 ML NEB INH ×2 (07:28→19:38)
[2022-07-31] MEDS: MYCOPHENOLATE MOFETIL 500 MG TABLET 750 MG PO ×2 (08:37→21:18)
[2022-07-31] MEDS: CALCIUM CARBONATE 500 MG TAB PO ×2 (08:37→21:18)
[2022-07-31] MEDS: CHOLECALCIFEROL (VITAMIN D3) 1,000 UNIT TABLET 1000 UNIT PO (08:38)
[2022-07-31] MEDS: ACYCLOVIR 400 MG TABLET PO ×2 (08:38→21:17)
[2022-07-31] MEDS: GABAPENTIN 600 MG TABLET PO ×3 (08:38→21:17)
[2022-07-31] MEDS: ENOXAPARIN 40 MG/0.4 ML SYRINGE SUBCUT (08:38)
[2022-07-31] MEDS: POTASSIUM CHLORIDE 20 MEQ TAB PO (08:38)
[2022-07-31] MEDS: FOLIC ACID 1 MG TABLET PO (08:38)
[2022-07-31] MEDS: METOCLOPRAMIDE HCL 5 MG TABLET PO ×3 (08:38→16:41)
[2022-07-31] MEDS: LACTOBACILLUS ACIDOPHILUS TABLET 1 EACH PO (08:38)
[2022-07-31] MEDS: predniSONE 5 MG TABLET PO (08:38)
[2022-07-31] MEDS: INSULIN GLARGINE 100 UNIT/ML 3ML PEN 15 UNIT SUBCUT (08:39)
[2022-07-31] MEDS: TRAMADOL 50 MG TABLET 100 MG PO (08:39)
--- NOTE | 2022-07-31 10:19 | PT.IPTN ---
Current Diagnoses Pneumonia, unspecified organism (07/27/22) Physical Therapy Treatment Note M2 PT-IP Current Condition Start: 07/30/22 09:28 Freq: NEEDED Status: Active Protocol: Document 07/30/22 09:56 TH (Rec: 07/30/22 10:15 TH [id number]) Physical Therapy Current Condition Current Condition Evaluation Date 07/30/22 Treatment Diagnosis Rhino virus pos. M3 PT-IP Subjective Start: 07/30/22 09:28 Freq: NEEDED Status: Active Protocol: Document 07/31/22 10:03 KS (Rec: 07/31/22 10:46 KS [id number]) Subjective Physical Therapy Visit Type Type Treatment Note Visit Start Time 10:03 Visit Stop Time 10:19 Total Visit Minutes 16 Number of LEAD BI DEVELOPER Visits 2 Physical Therapy Visit Comments Patient Comments Feeling weak, SOB, and dizzy. O2 98-99% on 3L, 96% on 2L. Per RN, keep on 2L. BP: 104/45 Patient Goals To return home at PLOF M4 PT-IP Mobility and Gait Start: 07/30/22 09:28 Freq: NEEDED Status: Active Protocol: Document 07/31/22 10:03 KS (Rec: 07/31/22 10:46 KS [id number]) PT-Bed Mobility Assessment Rolling Type of Rolling Bilateral Level of Assist Standby Assistance PT-Transfer Assessment Comments Mobility Comments Pt in bed upon arrival and requests to stay in bed stating she feels too dizzy to transfer to chair. BP taken and 104/45, O2 96% on 2L bt pt c/o SOB. Agreeable to complete LE exercises in bed to promote blood flow and strenghtening. Able to complete 1x10 bilateral ankle pumps, quad sets, SLR, and glute sets. Rolled to side for repositioning of pillow SBA. Left in bed w/ all needs in reach. Gait Assessment Comments Gait Comments Unwilling to participate d/t dizziness. Stair Climbing Assessment Comments Stair Climbing Comments unable M5 PT-IP Objective Assessments Start: 07/30/22 09:28 Freq: NEEDED Status: Active Protocol: Document 07/30/22 09:56 TH (Rec: 07/30/22 10:15 TH [id number]) Orientation Orientation/Cognition Level of Alertness Alert Orientation Name,Place,Situation Language Function Ability No Deficits Noted Safety Awareness Understands Safety Issues Memory Description No Deficits Noted Gross Range of Motion Upper Extremity ROM Assessment Within Functional Limits Lower Extremity ROM Assessment Within Functional Limits Strength Upper Extremity Strength Assessment Within Functional Limits Lower Extremity Strength Assessment Within Functional Limits Comments Strength Comments Decreased endurance M6 PT-IP Treatment Start: 07/30/22 09:28 Freq: NEEDED Status: Active Protocol: Document 07/31/22 10:03 KS (Rec: 07/31/22 10:46 KS [id number]) Physical Therapy Treatment Exercises Exercises Ankle Pumps,Gluteal Sets,Quad Sets,Straight Leg Raises Education Education Provided Safety M7 PT-IP Assessment and Plan Start: 07/30/22 09:28 Freq: NEEDED Status: Active Protocol: Document 07/31/22 10:03 KS (Rec: 07/31/22 10:46 KS [id number]) PT Summary Assessment and Plan Potential Rehabilitation Potential Good Summary Impairments Activity Tolerance Progress Towards Goals Slow Progress due to Activity Tolerance Assessment Summary Pt continues to be limited by activity tolerance and c/o dizziness and SOB today limiting mobility. Able to complete LE exercises in bed and agreeable to complete at least 3x/day. O2 96% on 2L and BP 104/45 in supine. Will continue to assess progress. Goals Bed Mobility Goal Independent Transfer Goal Independent Gait Goal Independent Other Goals up/down two steps with rail Frequency of Treatment Frequency Of Treatment Once a Day Treatment Plan Physical Therapy Treatment Plan Bed Mobility Training,Transfer Training,Gait Training, Therapeutic Exercise,Balance Retraining Other Recommendations and Next Treatment Increase ambulation, transfer Focus to chair. Precautions Other Precautions Fall risk, Decreased O2 sats with activity may need O2 Recommendations To Nursing Amount of Assist Needed Standby Assistance Discharge Recommendations PT Discharge Recommendations Home with Assistance Equipment Needed for Home Before none, pt has all necessary Discharge equipment at home Transportation Needs at Discharge Private Vehicle
--- NOTE | 2022-07-31 10:25 | RT ---
Ambulated patient around room with PT on 07/30/22. Her Spo2 dropped down to 75% on RA. I put her on 2L and she went up to 94% within on minute at rest. She will need to be evaluated for home oxygen for ambulation.
--- NOTE | 2022-07-31 11:36 | DI.RAD.S_ITS ---
PROCEDURE: XR CHEST 1V INDICATIONS: worsened dyspnea, cough, hypoxia TECHNIQUE: One view of the chest was acquired. COMPARISON: [facility], CR, XR CHEST 1V, 07/27/2022, 11:45. FINDINGS: Surgical changes and devices: Cholecystectomy clips are seen. Lungs and pleura: Low lung volumes are noted. This causes a crowded appearance to the lung markings and limits evaluation. Poorly defined opacity is seen at the left lung base. There is blunting of the costophrenic angles. Mild streaky opacity is seen at the right lung base. Mild interstitial prominence can be seen.. Mediastinum: Mediastinal contours appear normal. Heart size is at the upper limits of normal. Atherosclerotic calcification of the aortic arch is noted. Bones and chest wall: No suspicious bony lesions. Age-appropriate bony degenerative changes are seen. Overlying soft tissues appear unremarkable. IMPRESSION: Likely infiltrate at the left lung base. Bilateral pleural effusions and interstitial prominence can be seen. Fluid overload is suspected. Dictated by: Maik Valdovinos M.D. on 07/31/2022 at 11:12 Approved by: Maik Valdovinos M.D. on 07/31/2022 at 11:14
[2022-07-31] MEDS: predniSONE 20 MG TABLET 60 MG PO (11:53)
--- NOTE | 2022-07-31 15:02 | PM.PN.1 ---
Subjective Subjective Interval history: Feels a bit worse today, worsened cough and dyspnea. Oxygen requirements also up a slight amount. Denies fever or chills, she did feel nauseous and had an episode of NBNB emesis. CXR with bilateral infiltrates, consistent with possible fluid, though unable to diurese at this time given mild hypotension. Started steroids to see if improvement. Exam Vital Signs (past 8 hours): - 07/31/22 07:29 07/31/22 07:39 07/31/22 09:22 Temperature 98.0 F Pulse Rate 90 94 H 109 H Respiratory Rate 20 22 20 Blood Pressure 95/48 L Pulse Oximetry 96 97 Oxygen Delivery Method Nasal Cannula Nasal Cannula Oxygen Flow Rate 1 1 1 07/31/22 09:00 07/31/22 09:00 07/31/22 13:00 Temperature Pulse Rate Respiratory Rate Blood Pressure Pulse Oximetry 95 95 Oxygen Delivery Method Nasal Cannula Nasal Cannula Room Air Oxygen Flow Rate 2 2 07/31/22 14:31 Temperature Pulse Rate 91 H Respiratory Rate 28 H Blood Pressure Pulse Oximetry 95 Oxygen Delivery Method Nasal Cannula Oxygen Flow Rate 1 Fraction of Inspired Oxygen 24 SaO2/FiO2 Ratio 408 Oxygen Delivery Method Nasal Cannula Oxygen Flow Rate 1 Narrative Exam Narrative: GEN:? not in any acute distress, calm on O2 supplementation HEENT: Atraumatic, pupils are equal round reactive to light, extraocular movements are intact, nares are clear.? Throat is clear without any exudates, erythema. HEART: Regular rate and rhythm without murmur, clicks, rubs.? No carotid bruits, pulses equal bilaterally. LUNGS:Lungs? coarse bilaterally right greater than left, no rales, no crackles, chest moves symmetrically, no tachypnea.? ABD:bowel sounds normal, soft, non-tender, no guarding, rebound, rigidity, no masses noted, no hepatosplenomegaly :No CVA tenderness MSCL: Non-tender, no muscle atrophy, muscles strength 5/5 upper and lower extremities, full range of motion NEURO:CN 2-12 intact, sensation normal SKIN:? No rash, erythema or other skin changes Objective Labs 07/29/22 05:10 07/29/22 05:10 [facility] Medical History Imperial's disease Arthritis Asthma Chronic cough CKD (chronic kidney disease), stage III Diabetes Edema GERD (gastroesophageal reflux disease) Hiatal hernia HLD (hyperlipidemia) HTN (hypertension) Incontinence Interstitial lung disease Nasal polyp Neuropathy Pneumonia Polymyositis Sarcoidosis SCC (squamous cell carcinoma) Surgical History H/O wrist surgery History of arthroplasty of left knee History of arthroplasty of right knee Hx of bilateral cataract extraction Hx of cholecystectomy Hx of hernia repair Hx of tonsillectomy Status post correction of deviated nasal septum Social History household members: none Smoking Status: Never smoker alcohol intake: current Assessment & Plan Assessment & Plan narrative: 1. Sepsis secondary to Bilateral pneumonia with acute respiratory failure with hypoxia, ULISSES. Secondary to rhinovirus with probable superimposed bacterial pneumonia. -? Treated initially with Levaquin and vancomycin in a patient who has penicillin and sulfa allergy and on chronic prednisone. MRSA swab negative, vancomycin discontinued 07/29. - worsening symptoms on 07/31 with rise in WBC and creatinine day before. WBC may be from previous steroids in ER. CXR consistent with fluid but not able to currently diurese with hypotension, and may represent worsening pneumonia. Will check proBNP in AM, start prednisone 60 mg daily for possible asthma / sarcoidosis. Will also check a procalcitonin. Repeat labs ordered today. - TTE ordered today 2. Pulmonary sarcoidosis, - was given two doses of 125 mg of soludmedrol in the ER and shortly after admission. Will increase to treat today with prednisone 60 mg daily to see if improvement. 3. Iatrogenic elevated blood sugars.? Continue Basaglar 15 units daily subQ. Hemoglobin A1c 6.6. 4. Chronic pain.? Continue gabapentin and tramadol doses per home schedule. 5. Acute and chronic nausea.? Continue metoclopramide.? Also provide ondansetron as needed. 6. Hypertension.? Continue patient's regular medication. Controlled. 7. Hyperlipidemia.? Continue rosuvastatin. 8. History of chronic kidney disease with ULISSES developing. 9. GERD.? Provide pantoprazole 40 mg daily. 10. Entero/rhino virus.? Isolation precautions. 11. Asthma, chronic and allergies with exacerbation.? Provide Singulair 10 mg daily and nebulized treatment as needed. Added steroids as discussed above. Dispo: Inpatient, discharge home when hypoxia resolved Quality VTE Deep Vein Thrombosis/Pulmonary Embolism Present on Admission: No
--- NOTE | 2022-07-31 15:23 | DI.ECHO.S_ITS ---
[facility]---------+ [facility] +---------+ : : [address] : : : : [id number] : : : : Phone: [phone]+ Echocardiogram Report + + :Name: NICOLASA RAHMAN Study Date: 08/01/2022 Height: 59 in : :[facility] ReadingLocation: Weight: 353 lb: : Gender: Female BSA: 2.3 m2 : :: 1950 Age: 72 yrs BP: 98/51 mmHg: :Reason For Study: SHORTNESS OF BREATH, HYPOXIA HR: 86 : :Ordering Physician: NOHEMY, : :ANDI LADD Performed By: WILLIE MACKENZIE : :Referring: ANDI SLATER : + + Interpretation Summary The ejection fraction is estimated to be 60-65%. The right ventricle is normal in size and function. There is mild tricuspid regurgitation. Right ventricular systolic pressure is estimated to be 37 mmHg plus right atrial pressure. Procedure: A two-dimensional transthoracic echocardiogram with color flow and Doppler was performed. The study quality was technically adequate. Comparison is made with the echocardiogram of 11/19/2018. The patient was in normal sinus rhythm during the exam. Left Ventricle: The left ventricle is normal in size. Left ventricular wall thickness is mildly increased. Left ventricular systolic function is normal. The ejection fraction is estimated to be 60-65%. Left ventricular wall motion is normal. Right Ventricle: The right ventricle is normal in size and function. Atria: Both atria are normal in size. Mitral Valve: The mitral valve is normal in structure and function. There is no mitral regurgitation noted. Aortic Valve: The aortic valve is trileaflet. There is no aortic valve stenosis. There is trace aortic regurgitation. Tricuspid Valve: The tricuspid valve is normal in structure and function. There is mild tricuspid regurgitation. Right ventricular systolic pressure is estimated to be 37 mmHg plus right atrial pressure. Pulmonic Valve: The pulmonic valve is normal in structure and function. There is a trace or physiologic amount of pulmonic regurgitation. Great Vessels: The aortic root is normal size. The ascending aorta is normal in size. The inferior vena cava was not well visualized. Pericardium/ Pleura There is no pericardial effusion. There is no pleural effusion. MMode/2D Measurements & Calculations LVIDd: 4.6 cm LVOT diam: 2.0 cm LVIDs: 2.7 cm Ao root diam: 3.2 cm FS: 40.9 % asc Aorta Diam: 3.6 cm IVSd: 1.1 cm LVPWd: 0.96 cm LV bhakta. diameter/BSA (cm/m^2): 2.0 LV sys. diameter/BSA (cm/m^2): 1.2 LA A2 area: 16.4 cm2 RA long axis: 4.9 cm LA A4 area: 13.3 cm2 RA area: 12.7 cm2 LA length (vol): 4.2 cm RA vol: 28.0 ml LA vol: 44.2 ml RA : 11.9 ml/m2 LA vol index: 18.9 ml/m2 TAPSE: 1.2 cm Doppler Measurements & Calculations Ao V2 max: 170.5 cm/sec LVOT Max Cliff: 160.7 cm/sec Ao V2 mean: 116.3 cm/sec LV V1 max P.3 mmHg Ao max P.6 mmHg LV V1 VTI: 29.1 cm Ao mean P.1 mmHg MATEO(I,D): 2.6 cm2 Ao V2 VTI: 33.2 cm MATEO(V,D): 2.8 cm2 sev ratio: 0.88 MATEO indexed to BSA (cm^2/m^2): 1.1 MV E max cliff: 126.2 cm/sec TR max cliff: 302.0 cm/sec MV A max cliff: 130.9 cm/sec TR max P.5 mmHg MV E/A: 0.96 PA V2 max: 130.8 cm/sec Med Peak E' Cliff: 7.6 cm/sec PA V2 mean: 85.9 cm/sec E/E' med: 16.7 PA mean P.2 mmHg Lat Peak E' Cliff: 9.3 cm/sec PA pr(Accel): 22.5 mmHg E/E' lat: 13.6 E/e' average: 15.2 MV dec time: 0.17 sec SV(LVOT): 87.3 ml Reading Physician:05:31 PM
[2022-07-31] MEDS: ATORVASTATIN 20 MG TABLET PO (21:17)
[2022-07-31] MEDS: MELATONIN 3 MG TABLET 6 MG PO (21:19)
[2022-08-01] VITALS (13 sets, daily range): BP systolic 94–121; BP diastolic 45–57; PULSE 74–109; RESP 16–20; TEMP 35.8–36.8; O2SAT 94–100
[2022-08-01] MEDS: ALBUTEROL 2.5 MG/3 ML NEB (ADULT) INH ×4 (03:55→20:42)
[2022-08-01] MEDS: CODEINE/ACETAMINOPHEN 30/300 TABLET 1 TAB PO (06:28)
[2022-08-01] MEDS: PANTOPRAZOLE DR 40 MG TABLET PO (06:29)
[2022-08-01 07:02] LABS: Add Manual Diff / Slide Review NO; Basophils Absolute Auto 0 /uL (0-100); Basophils Percent Auto 0.1 % (0-2); Eosinophils Absolute Auto 0 /uL (0-450); Hematocrit 31.3 % (36-46); Lymphocytes Absolute Auto 700 /uL (1100-4500); Lymphocytes Percent Auto 7.3 % (25-40); Mean Corpuscular HGB Conc 31.9 % (30-36); Mean Corpuscular Hemoglobin 28.2 PG (26-34); Mean Corpuscular Volume 88.5 fL (80-100); Monocytes Absolute Auto 700 /uL (0-900); Monocytes Percent Auto 7.3 % (3-14); Neutrophils Absolute Auto 7800 /uL (1500-7000); Neutrophils Percent Auto 85.3 % (50-75); Platelet Count 258 X10^3/uL (150-400); Red Blood Cell Count 3.54 X10^6/uL (4.0-5.2); White Blood Cell Count 9.2 X10^3/uL (4.5-11.0)
[2022-08-01 07:10] LABS: Alanine Aminotransferase 21 IU/L (<35); Albumin 2.4 g/dL (3.5-5.0); Alkaline Phosphatase 49 U/L (38-126); Aspartate Aminotransferase 24 IU/L (14-36); Bilirubin Total 0.2 mg/dL (0.2-1.3); Blood Urea Nitrogen 21 mg/dL (7-17); Calcium 8.7 mg/dL (8.4-10.2); Carbon Dioxide 29 mmol/L (22-32); Chloride 102 mmol/L (98-107); Estimated Glomerular Filt Rate > 60 mL/min (>60); Globulin 2.4 g/dL (1.7-4.1); Glucose 159 mg/dL (80-110); HEMOLYSIS < 15 (0-50); Magnesium 1.7 mg/dL (1.6-2.3); Potassium 5.2 mmol/L (3.4-5.1); Sodium 132 mmol/L (137-145); Total Protein 4.8 g/dL (6.3-8.2)
[2022-08-01 07:18] LABS: NT-proBNP (BNP-Adult 18+) 4060 pg/mL (<125)
[2022-08-01 07:27] LABS: Procalcitonin 0.08 ng/mL (<0.5)
[2022-08-01] MEDS: BUDESONIDE 0.5 MG/2 ML NEB INH ×2 (08:48→20:42)
[2022-08-01] MEDS: predniSONE 20 MG TABLET 60 MG PO (09:27)
[2022-08-01] MEDS: LACTOBACILLUS ACIDOPHILUS TABLET 1 EACH PO (09:27)
[2022-08-01] MEDS: FOLIC ACID 1 MG TABLET PO (09:27)
[2022-08-01] MEDS: CHOLECALCIFEROL (VITAMIN D3) 1,000 UNIT TABLET 1000 UNIT PO (09:27)
[2022-08-01] MEDS: CALCIUM CARBONATE 500 MG TAB PO ×2 (09:27→20:46)
[2022-08-01] MEDS: POTASSIUM CHLORIDE 20 MEQ TAB PO (09:27)
[2022-08-01] MEDS: GABAPENTIN 600 MG TABLET PO ×3 (09:27→20:45)
[2022-08-01] MEDS: TRAMADOL 50 MG TABLET 100 MG PO (09:27)
[2022-08-01] MEDS: INSULIN GLARGINE 100 UNIT/ML 3ML PEN 15 UNIT SUBCUT (09:28)
[2022-08-01] MEDS: MYCOPHENOLATE MOFETIL 500 MG TABLET 750 MG PO ×2 (09:28→20:44)
[2022-08-01] MEDS: METOCLOPRAMIDE HCL 5 MG TABLET PO (09:28)
[2022-08-01] MEDS: ACYCLOVIR 400 MG TABLET PO ×2 (09:28→20:45)
[2022-08-01] MEDS: ENOXAPARIN 40 MG/0.4 ML SYRINGE SUBCUT (09:28)
[2022-08-01] MEDS: METOCLOPRAMIDE HCL 5 MG TABLET 10 MG PO ×2 (11:36→17:19)
[2022-08-01] MEDS: MAGNESIUM CHLORIDE 64 MG TABLET 128 MG PO (11:37)
--- NOTE | 2022-08-01 14:20 | PT.IPTN ---
Current Diagnoses Pneumonia, unspecified organism (07/27/22) Physical Therapy Treatment Note M2 PT-IP Current Condition Start: 07/30/22 09:28 Freq: NEEDED Status: Active Protocol: Document 07/30/22 09:56 TH (Rec: 07/30/22 10:15 TH [id number]) Physical Therapy Current Condition Current Condition Evaluation Date 07/30/22 Treatment Diagnosis Rhino virus pos. M3 PT-IP Subjective Start: 07/30/22 09:28 Freq: NEEDED Status: Active Protocol: Document 08/01/22 14:44 TS (Rec: 08/01/22 14:59 TS [id number]) Subjective Physical Therapy Visit Type Type Treatment Note Visit Start Time 14:20 Visit Stop Time 14:40 Total Visit Minutes 20 Notes Vitals: BP 121/57, Spo2 96 @2L , 90% @1L. Physical Therapy Visit Comments Patient Comments Pt reports feeling much better , would like to go home when medically stable, reports having friends, neighbor and quaker group to help her. M4 PT-IP Mobility and Gait Start: 07/30/22 09:28 Freq: NEEDED Status: Active Protocol: Document 08/01/22 14:44 TS (Rec: 08/01/22 14:59 TS [id number]) PT-Transfer Assessment Sit to and From Stand Sit to and from Stand Standby Assistance Equipment Transfer Assistive Device Front Wheeled Walker Comments Mobility Comments Pt found resting in bedside chair, agreeable to PT session . Pt on 2L of o2 96%. Pt performed sit to stand x1 SBA w/fww, required cues for BUE support pushing from arms of chair, slight flexed posture. Pt ambulated around room ~50' SBA with step thru gait and back to chair, no buckling or LOB. Pt perfromed sit to stand x1 SBA on 1L of o2, amublated to door and back to chair SBA , Spo2 90%, increased to 2L to recover, 95%. Pt was left in bedside chair with call light nearby and Hao danielle in room for medications. Gait Assessment Gait Gait Assistance Required: Standby Assistance Distance (Feet) 80 Assistive Devices Assistive Device Gait Belt,Front Wheeled Walker Gait Deviations General Gait Pattern Decreased Stride Length, Decreased Feet Clearance, Flexed Trunk Comments Gait Comments See mobility comments Stair Climbing Assessment Comments Stair Climbing Comments Did not trial this session. PT-Balance Assessment Sitting Balance and Reactions Static Sitting Balance Ability Normal Dynamic Sitting Balance Ability Good Standing Balance and Reactions Static Standing Balance Ability Normal Dynamic Standing Balance Ability Good M5 PT-IP Objective Assessments Start: 07/30/22 09:28 Freq: NEEDED Status: Active Protocol: Document 07/30/22 09:56 TH (Rec: 07/30/22 10:15 TH [id number]) Orientation Orientation/Cognition Level of Alertness Alert Orientation Name,Place,Situation Language Function Ability No Deficits Noted Safety Awareness Understands Safety Issues Memory Description No Deficits Noted Gross Range of Motion Upper Extremity ROM Assessment Within Functional Limits Lower Extremity ROM Assessment Within Functional Limits Strength Upper Extremity Strength Assessment Within Functional Limits Lower Extremity Strength Assessment Within Functional Limits Comments Strength Comments Decreased endurance M6 PT-IP Treatment Start: 07/30/22 09:28 Freq: NEEDED Status: Active Protocol: Document 08/01/22 14:44 TS (Rec: 08/01/22 14:59 TS [id number]) Physical Therapy Treatment Other Treatments Other Treatment Performed Educated pt on intensity and frequency of exercises. M7 PT-IP Assessment and Plan Start: 07/30/22 09:28 Freq: NEEDED Status: Active Protocol: Document 08/01/22 14:44 TS (Rec: 08/01/22 14:59 TS [id number]) PT Summary Assessment and Plan Potential Rehabilitation Potential Good Summary Impairments Activity Tolerance Progress Towards Goals Slow Progress due to Activity Tolerance Assessment Summary Pt progressed her ambulation distance today to ~80' SBA, no signs of buckling or LOB but stated LEs felt wobbly. She was resting on 2L at 96%, 90% on 1L after ambulation, increased back to 2L for recovery. Pt continues to have decreased activity tolerance at this time. PT is recommending SNF vs Home with assist. Pt would like to return home with assist from friends, family and quaker group. If pt can complete stairs and progress her mobilty with more time in hospital she may be able to return home with assist. Goals Bed Mobility Goal Independent Transfer Goal Independent Gait Goal Independent Other Goals up/down two steps with rail Frequency of Treatment Frequency Of Treatment Once a Day Treatment Plan Physical Therapy Treatment Plan Bed Mobility Training,Transfer Training,Gait Training, Therapeutic Exercise,Balance Retraining Other Recommendations and Next Treatment Increase ambulation, trail Focus stairs. Precautions Other Precautions Fall risk, Decreased O2 sats with activity may need O2 Recommendations To Nursing Amount of Assist Needed 1 Person Assist Discharge Recommendations PT Discharge Recommendations Home with Assistance Equipment Needed for Home Before none, pt has all necessary Discharge equipment at home Transportation Needs at Discharge Private Vehicle
[2022-08-01] MEDS: FUROSEMIDE 20 MG/2 ML VIAL IV ×2 (14:35→20:44)
[2022-08-01] MEDS: ALBUMIN HUMAN 12.5 GM/50 ML VIAL IV ×2 (15:08→20:01)
[2022-08-01] MEDS: INSULIN LISPRO 100 UNIT/ML 3ML VIAL SUBCUT ×2 (17:19→21:02)
--- NOTE | 2022-08-01 18:52 | PM.PN.1 ---
Subjective Subjective Interval history: 72-year-old female with bronchiectasis, pulmonary sarcoidosis, myositis prior bone infarct, hypertension, dyslipidemia, iatrogenic, Glynn's disease on prednisone 4 mg daily who was admitted acute hypoxic respiratory failure and human metapneumovirus. She had been doing fairly well initially but yesterday developed acute worsening. She had low blood pressures which were treated with an IV fluid bolus a night prior. She appeared to have worsening evidence of volume overload versus superimposed bacterial infection. However, due to low blood pressures, it was felt that diuresis could not be pursued. Today, the patient reports she is feeling improved. She does feel a bit less short of breath, reports a bit more energy. She was able to get some rest overnight. She is urinating easily. She does have some chest pain/pressure secondary to coughing. Exam Vital Signs (past 8 hours): - 08/01/22 13:00 08/01/22 13:55 08/01/22 17:00 Temperature Pulse Rate 82 Respiratory Rate 16 Blood Pressure Pulse Oximetry 95 96 95 Oxygen Delivery Method Nasal Cannula Nasal Cannula Nasal Cannula Oxygen Flow Rate 2 2 2 08/01/22 14:22 Temperature 96.5 F L Pulse Rate 92 H Respiratory Rate 20 Blood Pressure 121/57 L Pulse Oximetry 97 Oxygen Delivery Method Oxygen Flow Rate 2 Fraction of Inspired Oxygen 24 SaO2/FiO2 Ratio 404 Oxygen Delivery Method Nasal Cannula Oxygen Flow Rate 2 Narrative Exam Narrative: GEN: Very pleasant elderly female, Alert and oriented x 3, NAD HEENT:NC, Face symmetric CHEST: Respiratory excursions symmetric, diffuse crackles/rhonchi, coarse CV: RRR, no M/R/G ABD: Soft, NT/ND, BT present in all 4 quadrants, no organomegaly or masses EXTR: warm, well perfused, no C/C/E SKIN: warm and dry, no rash NEURO: Alert and oriented x 3, nonfocal Objective Labs 08/01/22 06:30 08/01/22 06:30 Labs: Laboratory Results - last 24 hr 08/01/22 08/01/22 08/01/22 06:30 06:30 06:30 WBC 9.2 RBC 3.54 L Hgb 10.0 L Hct 31.3 L MCV 88.5 MCH 28.2 MCHC 31.9 RDW 15.0 H Plt Count 258 Neut % (Auto) 85.3 H Lymph % (Auto) 7.3 L [place] % (Auto) 7.3 Eos % (Auto) 0.0 L Baso % (Auto) 0.1 Neut # (Auto) 7800 H Lymph # (Auto) 700 L [place] # (Auto) 700 Eos # (Auto) 0 Baso # (Auto) 0 Sodium 132 L Potassium 5.2 H D Chloride 102 Carbon Dioxide 29 BUN 21 H Creatinine 0.70 Estimated GFR > 60 BUN/Creatinine Ratio 30.0 H Glucose 159 H Calcium 8.7 Magnesium 1.7 Total Bilirubin 0.2 AST 24 ALT 21 Alkaline Phosphatase 49 NT-Pro-B Natriuret Pep 4060 H Total Protein 4.8 L Albumin 2.4 L Globulin 2.4 Albumin/Globulin Ratio 1.0 Procalcitonin 0.08 PFSH Medical History Glynn's disease Arthritis Asthma Chronic cough CKD (chronic kidney disease), stage III Diabetes Edema GERD (gastroesophageal reflux disease) Hiatal hernia HLD (hyperlipidemia) HTN (hypertension) Incontinence Interstitial lung disease Nasal polyp Neuropathy Pneumonia Polymyositis Sarcoidosis SCC (squamous cell carcinoma) Surgical History H/O wrist surgery History of arthroplasty of left knee History of arthroplasty of right knee Hx of bilateral cataract extraction Hx of cholecystectomy Hx of hernia repair Hx of tonsillectomy Status post correction of deviated nasal septum Social History household members: none Smoking Status: Never smoker alcohol intake: current Assessment & Plan Assessment & Plan narrative: 1. Sepsis secondary to bilateral pneumonia and acute hypoxic respiratory failure. Patient was initially treated with Levaquin and vancomycin due to her immunosuppressed status in the setting of both penicillin and sulfa allergies. MRSA swab was negative and vancomycin was discontinued on July 29. She develop worsening symptoms on July 31 with a rise in her white blood cell count and crit 9. Chest x-ray did show evidence pulmonary edema but possible worsening pneumonia as well. Physiologic signs of sepsis have resolved. 2. Acute hypoxic respiratory failure Likely secondary to a combination of volume overload/congestive heart failure and and metapneumovirus and possible superimposed bacterial pneumonia. BNP is elevated at 4060 today. Procalcitonin is normal at 0.08. She does have a very low albumin which likely is contributing to her hypotension and difficulty with diuresis. Will resume furosemide 20 mg IV b.i.d. but give albumin 12.5 g IV b.i.d. prior. Continue supportive care for the metapneumovirus. She remains also on Levaquin for possible superimposed bacterial infection. Today is day 6 of treatment. This will be discontinued tomorrow. She is receiving every other day dosing due to her renal function. Echocardiogram g was completed today and revealed an EF of 60 65%, normal RV size and function, mild tricuspid regurgitation. RVSP is to be 37 mm plus the right atrial pressure. Given that, diuresis may prove somewhat challenging. 3. Pulmonary sarcoidosis She was given Solu-Medrol in the emergency department and after admission. Placed on prednisone yesterday. She remains on CellCept, acyclovir, budesonide nebulizers. 4. Hyperglycemia Patient remains on Basaglar 15 units daily. A1c was 6.6% consistent with good outpatient control. Blood sugars have ranged from 196-248. Sliding scale insulin has been added as well. Continue controlled carb diet. 5. Chronic pain syndrome Continue gabapentin and tramadol 6. Hypertension Blood pressures are normotensive presently. Will monitor. 7. History of CKD GFR is greater than 60. On July 29, creatinine was 1.18. Today it is 0.7. Will follow. 8. GERD Currently asymptomatic not on chronic therapy. 9. Asthma Continue Singulair and nebulizers as needed Code status DNR Prophylaxis On Lovenox Disposition Pending Quality VTE Deep Vein Thrombosis/Pulmonary Embolism Present on Admission: No
[2022-08-01] MEDS: ACETAMINOPHEN 325 MG TABLET 650 MG PO (20:45)
[2022-08-01] MEDS: MELATONIN 3 MG TABLET 6 MG PO (20:45)
[2022-08-01] MEDS: ATORVASTATIN 20 MG TABLET PO (20:46)
[2022-08-02] VITALS (17 sets, daily range): BP systolic 101–138; BP diastolic 45–70; PULSE 73–91; RESP 14–22; TEMP 35.7–36.4; O2SAT 92–99
[2022-08-02] MEDS: CODEINE/ACETAMINOPHEN 30/300 TABLET 1 TAB PO (06:00)
--- NOTE | 2022-08-02 06:22 | PC.WOUNDPHOT ---
Addendum entered by Adrienne Mcleod R.N. 08/02/22 06:25: Area of redness on coccyx, 1cm x 2 cm area left of gluteal crease non-blanchable, stage 1 PI Original Note:
[2022-08-02] MEDS: PANTOPRAZOLE DR 40 MG TABLET PO (06:43)
[2022-08-02] MEDS: levoFLOXacin 250 MG TABLET 750 MG PO (06:43)
[2022-08-02 07:27] LABS: Alanine Aminotransferase 18 IU/L (<35); Albumin 2.8 g/dL (3.5-5.0); Albumin Globulin Ratio 1.3 (1.0-2.8); Alkaline Phosphatase 45 U/L (38-126); Aspartate Aminotransferase 18 IU/L (14-36); Bilirubin Total 0.2 mg/dL (0.2-1.3); Blood Urea Nitrogen 30 mg/dL (7-17); Calcium 9.1 mg/dL (8.4-10.2); Carbon Dioxide 31 mmol/L (22-32); Chloride 99 mmol/L (98-107); Estimated Glomerular Filt Rate > 60 mL/min (>60); Globulin 2.1 g/dL (1.7-4.1); Glucose 265 mg/dL (80-110); HEMOLYSIS < 15 (0-50); Magnesium 1.5 mg/dL (1.6-2.3); Potassium 4.9 mmol/L (3.4-5.1); Sodium 133 mmol/L (137-145); Total Protein 4.9 g/dL (6.3-8.2)
[2022-08-02 07:37] LABS: Add Manual Diff / Slide Review YES; Hematocrit 30.4 % (36-46); Hemoglobin 9.6 g/dL (12.0-16.0); Mean Corpuscular HGB Conc 31.8 % (30-36); Mean Corpuscular Hemoglobin 27.9 PG (26-34); Mean Corpuscular Volume 87.8 fL (80-100); Platelet Count 259 X10^3/uL (150-400); Red Blood Cell Count 3.46 X10^6/uL (4.0-5.2); White Blood Cell Count 8.1 X10^3/uL (4.5-11.0)
[2022-08-02 07:58] LABS: Neutrophils Absolute Manual 5994 /uL (3000-5900); RBC Morphology Normal Morphology; Total Cells Counted 100
[2022-08-02] MEDS: INSULIN LISPRO 100 UNIT/ML 3ML VIAL SUBCUT ×3 (08:12→22:05)
[2022-08-02] MEDS: INSULIN GLARGINE 100 UNIT/ML 3ML PEN 15 UNIT SUBCUT (08:23)
[2022-08-02] MEDS: ENOXAPARIN 40 MG/0.4 ML SYRINGE SUBCUT (08:25)
[2022-08-02] MEDS: predniSONE 20 MG TABLET 60 MG PO (08:25)
[2022-08-02] MEDS: METOCLOPRAMIDE HCL 5 MG TABLET 10 MG PO ×2 (08:25→11:45)
[2022-08-02] MEDS: TRAMADOL 50 MG TABLET 100 MG PO (08:26)
[2022-08-02] MEDS: ACYCLOVIR 400 MG TABLET PO ×2 (08:26→21:54)
[2022-08-02] MEDS: GABAPENTIN 600 MG TABLET PO ×2 (08:26→21:54)
[2022-08-02] MEDS: MYCOPHENOLATE MOFETIL 500 MG TABLET 750 MG PO ×2 (08:26→21:55)
[2022-08-02] MEDS: LACTOBACILLUS ACIDOPHILUS TABLET 1 EACH PO (08:26)
[2022-08-02] MEDS: FOLIC ACID 1 MG TABLET PO (08:26)
[2022-08-02] MEDS: CHOLECALCIFEROL (VITAMIN D3) 1,000 UNIT TABLET 1000 UNIT PO (08:27)
[2022-08-02] MEDS: POTASSIUM CHLORIDE 20 MEQ TAB PO (08:28)
[2022-08-02] MEDS: BUDESONIDE 0.5 MG/2 ML NEB INH ×2 (08:43→20:14)
[2022-08-02] MEDS: ALBUTEROL 2.5 MG/3 ML NEB (ADULT) INH ×3 (08:43→20:14)
[2022-08-02] MEDS: MAGNESIUM CHLORIDE 64 MG TABLET 128 MG PO (10:25)
--- NOTE | 2022-08-02 12:04 | CM.DPNOTE ---
DCP Note According to DR Valera, patient will stay today, still feeling quite ill PT continues to recommend HH, will plan to discuss with patient Plan: Discharge home w/family once medically cleared, likely w/ HH RN/PT if patient agreeable JW
[2022-08-02] MEDS: ALBUMIN HUMAN 12.5 GM/50 ML VIAL IV ×2 (12:17→21:20)
--- NOTE | 2022-08-02 13:45 | PT.IPTN ---
Current Diagnoses Pneumonia, unspecified organism (07/27/22) Physical Therapy Treatment Note M2 PT-IP Current Condition Start: 07/30/22 09:28 Freq: NEEDED Status: Active Protocol: Document 07/30/22 09:56 TH (Rec: 07/30/22 10:15 TH [id number]) Physical Therapy Current Condition Current Condition Evaluation Date 07/30/22 Treatment Diagnosis Rhino virus pos. M3 PT-IP Subjective Start: 07/30/22 09:28 Freq: NEEDED Status: Active Protocol: Document 08/02/22 14:14 TS (Rec: 08/02/22 14:34 TS [id number]) Subjective Physical Therapy Visit Type Type Treatment Note Visit Start Time 13:45 Visit Stop Time 14:10 Total Visit Minutes 25 Notes Vitals: Spo2 RA 93 before mobilization, Spo2 RA high 80' s after mobilization. Physical Therapy Visit Comments Patient Comments Pt reports she was taken off of her o2 today, she is feeling stronger. She would like to have HH and HHPT come out to her house when she is cleared for d/c. Patient Goals To return home at PLOF M4 PT-IP Mobility and Gait Start: 07/30/22 09:28 Freq: NEEDED Status: Active Protocol: Document 08/02/22 14:14 TS (Rec: 08/02/22 14:34 TS [id number]) PT-Transfer Assessment Sit to and From Stand Sit to and from Stand Standby Assistance Equipment Transfer Assistive Device Front Wheeled Walker Comments Mobility Comments Pt found resting in chair, agreeable to PT session. Sit to stand SBA w/FWW, BUE support on arms of chair. Pt ambulated in room ~25' SBA with flexed posture, required rest break in chair due to SOB , Spo2 87% on RA, 2 mins to recover. Pt performed sit to stand x1 SBA, ambulated in hallway ~100' and back to bedside chair, Spo2 86%, 2 mins to recover. She performed stairs x1 Morenita with BUE support on sink counter and FWW, x1 with only sink counter support Morenita. Pt back to bedside chair, Spo2 86%, 2 mins to recover. Pt was left in bed side chair, with mary jane light nearby, on RA 92%. Gait Assessment Gait Gait Assistance Required: Standby Assistance Distance (Feet) 125 Assistive Devices Assistive Device Gait Belt,Front Wheeled Walker Gait Deviations General Gait Pattern Decreased Stride Length, Decreased Feet Clearance, Flexed Trunk Comments Gait Comments See mobility comments Stair Climbing Assessment Evaluation Level of Assist On Stairs Contact Guard Assistance Devices Stair Climbing Assistive Devices Front Wheel Walker,Left Railing Technique/Endurance Stair Climbing Direction Ascend and Descend Stair Climbing Technique Step to Step Number of Steps Climbed 2 Comments Stair Climbing Comments See mobility comments PT-Balance Assessment Sitting Balance and Reactions Static Sitting Balance Ability Normal Dynamic Sitting Balance Ability Good Standing Balance and Reactions Static Standing Balance Ability Normal Dynamic Standing Balance Ability Good M5 PT-IP Objective Assessments Start: 07/30/22 09:28 Freq: NEEDED Status: Active Protocol: Document 07/30/22 09:56 TH (Rec: 07/30/22 10:15 TH [id number]) Orientation Orientation/Cognition Level of Alertness Alert Orientation Name,Place,Situation Language Function Ability No Deficits Noted Safety Awareness Understands Safety Issues Memory Description No Deficits Noted Gross Range of Motion Upper Extremity ROM Assessment Within Functional Limits Lower Extremity ROM Assessment Within Functional Limits Strength Upper Extremity Strength Assessment Within Functional Limits Lower Extremity Strength Assessment Within Functional Limits Comments Strength Comments Decreased endurance M6 PT-IP Treatment Start: 07/30/22 09:28 Freq: NEEDED Status: Active Protocol: Document 08/01/22 14:44 TS (Rec: 08/01/22 14:59 TS [id number]) Physical Therapy Treatment Other Treatments Other Treatment Performed Educated pt on intensity and frequency of exercises. M7 PT-IP Assessment and Plan Start: 07/30/22 09:28 Freq: NEEDED Status: Active Protocol: Document 08/02/22 14:14 TS (Rec: 08/02/22 14:34 TS [id number]) PT Summary Assessment and Plan Potential Rehabilitation Potential Good Summary Impairments Activity Tolerance Progress Towards Goals Slow Progress due to Activity Tolerance Assessment Summary Pt continues to progress her ambualtion distance this session to ~125' in room and hallway SBA, she reports LEs feeling wobbly, no signs of buckling or LOB. Her activity tolerance remains low, requiring rest breaks after ~ 25' of ambulation in room. She required Morenita for stairs x2 this session. She is on RA currently, pre-mobilization 93 %, decreases to high/Mid 80's after ambulation, requires 2 mins recovery time, back to low 90's at end of session. PT recommends Home 24/7 assist w /HH & HHPT. Pt lives alone and was Ind at baseline. She has family, friends and [employer] group to help her at home but unclear if anyone can provide 24/7 assist. With one more night in hospital pt could potentially d/c home with assist as needed. Goals Bed Mobility Goal Independent Transfer Goal Independent Gait Goal Independent Other Goals up/down two steps with rail Frequency of Treatment Frequency Of Treatment Once a Day Treatment Plan Physical Therapy Treatment Plan Bed Mobility Training,Transfer Training,Gait Training, Therapeutic Exercise,Balance Retraining Other Recommendations and Next Treatment Increase ambulation, trail Focus stairs. Precautions Other Precautions Fall risk, Decreased O2 sats with activity may need O2 Recommendations To Nursing Amount of Assist Needed Standby Assistance,1 Person Assist Discharge Recommendations PT Discharge Recommendations Home with Assistance,Home with 24/7 Assist Available,Home Health Equipment Needed for Home Before none, pt has all necessary Discharge equipment at home Transportation Needs at Discharge Private Vehicle
--- NOTE | 2022-08-02 14:32 | CM.DPNOTE ---
DCP Note Met w/patient this morning to review DCP; patient continues to plan on return home and requests referral to [facility] , patient would like RN/PT/OT/RN/TAX COMPLIANCE REPRESENTATIVE Placed call to [facility] spoke w/ R[facility]. RN available in [facility] 08.05.22 Faxed referral to include demo sheet, completed F2F, order and H+P Plan: Discharge home expected when medically stable w/friends to assist w/transport and chores/errands, resume meals on wheels, w/[facility] RN/PT/OT/TAX COMPLIANCE REPRESENTATIVE CM team will continue to follow closely for coordination of DCP; need DC Summary sent to [facility] upon discharge JW
[2022-08-02] MEDS: FUROSEMIDE 20 MG/2 ML VIAL IV ×2 (18:41→21:55)
--- NOTE | 2022-08-02 18:47 | PM.PN.1 ---
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 She had been doing fairly well initially but on 07/31/2022 developed acute worsening.? She had low blood pressures which were treated with an IV fluid bolus the night prior.? She appeared to have worsening evidence of volume overload versus superimposed bacterial infection.? However, due to low blood pressures, it was felt that diuresis could not be pursued. Today she reports she is feeling improved again. She has a bit more strength in her voice were as yesterday she had to speak somewhat with a whisper. She does continue to have some shortness of breath but no it is improving as well. She is urinating easily. Continues to cough and has some chest pain/pressure related to that. She did have a bowel movement today and went into the bathroom without difficulty. Exam Vital Signs (past 8 hours): - 08/02/22 12:19 08/02/22 13:09 08/02/22 13:00 Temperature 96.3 F L Pulse Rate 91 H 73 Respiratory Rate 19 14 Blood Pressure 103/58 L Pulse Oximetry 94 93 95 Oxygen Delivery Method Room Air Room Air Oxygen Flow Rate 0 08/02/22 17:00 Temperature 97.6 F Pulse Rate 88 Respiratory Rate 19 Blood Pressure 117/67 Pulse Oximetry 92 Oxygen Delivery Method Oxygen Flow Rate 0 Fraction of Inspired Oxygen 24 SaO2/FiO2 Ratio 404 Oxygen Delivery Method Room Air Oxygen Flow Rate 0 Narrative Exam Narrative: GEN:? Very pleasant elderly female, Alert and oriented x 3, NAD HEENT:NC, Face symmetric CHEST: Respiratory excursions symmetric, diffuse crackles/rhonchi, coarse CV: RRR, no M/R/G ABD: Soft, NT/ND, BT present in all 4 quadrants, no organomegaly or masses EXTR: warm, well perfused, no C/C, increasing horizontal faint wrinkles noted to the lower extremities consistent with improving swelling SKIN: warm and dry, no rash NEURO: Alert and oriented x 3, nonfocal Objective Labs 08/02/22 05:36 08/02/22 05:36 Labs: Laboratory Results - last 24 hr 08/02/22 08/02/22 05:36 05:36 WBC 8.1 RBC 3.46 L Hgb 9.6 L Hct 30.4 L MCV 87.8 MCH 27.9 MCHC 31.8 RDW 15.0 H Plt Count 259 Neut % (Auto) Not Reportable Lymph % (Auto) Not Reportable [place] % (Auto) Not Reportable Eos % (Auto) Not Reportable Baso % (Auto) Not Reportable Lymph # (Auto) Not Reportable [place] # (Auto) Not Reportable Baso # (Auto) Not Reportable Total Counted 100 Seg Neutrophils % 73.0 H Band Neutrophils % 1.0 L Lymphocytes % (Manual) 15.0 L Monocytes % (Manual) 10.0 Eosinophils % (Manual) 1.0 L Neutrophils # (Manual) 5994 H RBC Morphology Normal morphology Sodium 133 L Potassium 4.9 Chloride 99 Carbon Dioxide 31 BUN 30 H Creatinine 0.75 Estimated GFR > 60 BUN/Creatinine Ratio 40.0 H Glucose 265 H D Calcium 9.1 Magnesium 1.5 L Total Bilirubin 0.2 AST 18 ALT 18 Alkaline Phosphatase 45 Total Protein 4.9 L Albumin 2.8 L Globulin 2.1 Albumin/Globulin Ratio 1.3 PFSH Medical History Turlock's disease Arthritis Asthma Chronic cough CKD (chronic kidney disease), stage III Diabetes Edema GERD (gastroesophageal reflux disease) Hiatal hernia HLD (hyperlipidemia) HTN (hypertension) Incontinence Interstitial lung disease Nasal polyp Neuropathy Pneumonia Polymyositis Sarcoidosis SCC (squamous cell carcinoma) Surgical History H/O wrist surgery History of arthroplasty of left knee History of arthroplasty of right knee Hx of bilateral cataract extraction Hx of cholecystectomy Hx of hernia repair Hx of tonsillectomy Status post correction of deviated nasal septum Social History household members: none Smoking Status: Never smoker alcohol intake: current Assessment & Plan Assessment & Plan narrative: 1. Sepsis secondary to bilateral pneumonia and acute hypoxic respiratory failure.? Patient was initially treated with Levaquin and vancomycin due to her immunosuppressed status in the setting of both penicillin and sulfa allergies.? MRSA swab was negative and vancomycin was discontinued on July 29.? She develop worsening symptoms on July 31 with a rise in her white blood cell count.? Chest x-ray did show evidence pulmonary edema but possible worsening pneumonia as well.? Physiologic signs of sepsis have resolved. 2. Acute hypoxic respiratory failure Likely secondary to a combination of volume overload/congestive heart failure and and metapneumovirus and possible superimposed bacterial pneumonia.? BNP is elevated at 4060 today.? Procalcitonin is normal at 0.08, making bacterial superinfection less likely.? She does have a very low albumin which likely is contributing to her hypotension and difficulty with diuresis.? Continue IV albumin through tomorrow morning as well as IV diuresis.? Continue supportive care for the metapneumovirus. Levaquin completed today.? Echocardiogram g was completed yesterday and revealed an EF of 60 65%, normal RV size and function, mild tricuspid regurgitation.? RVSP is to be 37 mm plus the right atrial pressure.? Given that, diuresis may prove somewhat challenging. 3. Pulmonary sarcoidosis She was given Solu-Medrol in the emergency department and after admission.? Placed on prednisone on 07/31/2022.? This will be continued. She remains on CellCept, acyclovir, budesonide nebulizers. 4. Hyperglycemia Patient remains on Basaglar 15 units daily.? A1c was 6.6% consistent with good outpatient control.? Blood sugars have ranged from 148-322.? Will escalate sliding scale to the moderate level l.? Continue controlled carb diet. 5. Chronic pain syndrome Continue gabapentin and tramadol 6. Hypertension Blood pressures are normotensive presently.? Will monitor. 7. History of CKD GFR is greater than 60.? On July 29, creatinine was 1.18.? Today it remains normal at 0.75. 8. GERD Currently asymptomatic not on chronic therapy. 9. Asthma Continue Singulair and nebulizers as needed Code status DNR Prophylaxis On Lovenox Disposition Likely home in 48 hours Quality VTE Deep Vein Thrombosis/Pulmonary Embolism Present on Admission: No
[2022-08-02] MEDS: CALCIUM CARBONATE 500 MG TAB PO (21:54)
[2022-08-02] MEDS: ATORVASTATIN 20 MG TABLET PO (21:54)
[2022-08-02] MEDS: MELATONIN 3 MG TABLET 6 MG PO (21:54)
[2022-08-03] VITALS (11 sets, daily range): BP systolic 102–152; BP diastolic 45–73; PULSE 69–93; RESP 16–19; TEMP 35.6–37.2; O2SAT 93–97
[2022-08-03 06:12] LABS: Hematocrit 31.5 % (36-46); Hemoglobin 10.2 g/dL (12.0-16.0); Mean Corpuscular HGB Conc 32.5 % (30-36); Mean Corpuscular Hemoglobin 28.1 PG (26-34); Mean Corpuscular Volume 86.5 fL (80-100); Platelet Count 244 X10^3/uL (150-400); Red Blood Cell Count 3.64 X10^6/uL (4.0-5.2); White Blood Cell Count 8.2 X10^3/uL (4.5-11.0)
[2022-08-03 06:13] LABS: Add Manual Diff / Slide Review YES
[2022-08-03 06:26] LABS: Alanine Aminotransferase 18 IU/L (<35); Albumin Globulin Ratio 1.3 (1.0-2.8); Alkaline Phosphatase 42 U/L (38-126); Aspartate Aminotransferase 16 IU/L (14-36); BUN Creatinine Ratio 32.9 (6-22); Bilirubin Total 0.2 mg/dL (0.2-1.3); Blood Urea Nitrogen 23 mg/dL (7-17); Calcium 9.6 mg/dL (8.4-10.2); Carbon Dioxide 37 mmol/L (22-32); Chloride 97 mmol/L (98-107); Estimated Glomerular Filt Rate > 60 mL/min (>60); Globulin 2.3 g/dL (1.7-4.1); Glucose 163 mg/dL (80-110); HEMOLYSIS < 15 (0-50); Magnesium 1.4 mg/dL (1.6-2.3); Potassium 4.3 mmol/L (3.4-5.1); Sodium 136 mmol/L (137-145); Total Protein 5.3 g/dL (6.3-8.2)
--- NOTE | 2022-08-03 07:10 | PM.PN.1 ---
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 She had been doing fairly well initially but on 07/31/2022 developed acute worsening.? She had low blood pressures which were treated with an IV fluid bolus the night prior.? She appeared to have worsening evidence of volume overload versus superimposed bacterial infection.? However, due to low blood pressures, it was felt that diuresis could not be pursued. Dorene reports she is feeling quite a bit better overall today. She continues to have some cough. She is been urinating well. Moving her bowels regularly. She feels she is nearing readiness to go home. Exam Vital Signs (past 8 hours): - 08/03/22 00:00 08/03/22 04:00 08/03/22 01:00 Temperature 97.5 F L 98.6 F Pulse Rate 85 88 Respiratory Rate 19 19 Blood Pressure 129/67 128/63 Pulse Oximetry 93 95 94 Oxygen Delivery Method Room Air 08/03/22 05:00 Temperature Pulse Rate Respiratory Rate Blood Pressure Pulse Oximetry 95 Oxygen Delivery Method Room Air Fraction of Inspired Oxygen 24 SaO2/FiO2 Ratio 404 Oxygen Delivery Method Room Air Oxygen Flow Rate 0 Narrative Exam Narrative: GEN:? Very pleasant elderly female, Alert and oriented x 3, NAD HEENT:NC, Face symmetric CHEST: Respiratory excursions symmetric, diffuse crackles/rhonchi, coarse CV: RRR, no M/R/G ABD: Soft, NT/ND, BT present in all 4 quadrants, no organomegaly or masses EXTR: warm, well perfused, no C/C/E SKIN: warm and dry, no rash NEURO: Alert and oriented x 3, nonfocal Objective Labs 08/03/22 05:59 08/03/22 05:59 Labs: Laboratory Results - last 24 hr 08/02/22 08/02/22 08/03/22 05:36 05:36 05:59 WBC 8.1 8.2 RBC 3.46 L 3.64 L Hgb 9.6 L 10.2 L Hct 30.4 L 31.5 L MCV 87.8 86.5 MCH 27.9 28.1 MCHC 31.8 32.5 RDW 15.0 H 15.0 H Plt Count 259 244 Neut % (Auto) Not Reportable Not Reportable Lymph % (Auto) Not Reportable Not Reportable [place] % (Auto) Not Reportable Not Reportable Eos % (Auto) Not Reportable Not Reportable Baso % (Auto) Not Reportable Not Reportable Lymph # (Auto) Not Reportable Not Reportable [place] # (Auto) Not Reportable Not Reportable Baso # (Auto) Not Reportable Not Reportable Total Counted 100 Seg Neutrophils % 73.0 H Band Neutrophils % 1.0 L Lymphocytes % (Manual) 15.0 L Monocytes % (Manual) 10.0 Eosinophils % (Manual) 1.0 L Neutrophils # (Manual) 5994 H RBC Morphology Normal morphology Sodium 133 L Potassium 4.9 Chloride 99 Carbon Dioxide 31 BUN 30 H Creatinine 0.75 Estimated GFR > 60 BUN/Creatinine Ratio 40.0 H Glucose 265 H D Calcium 9.1 Magnesium 1.5 L Total Bilirubin 0.2 AST 18 ALT 18 Alkaline Phosphatase 45 Total Protein 4.9 L Albumin 2.8 L Globulin 2.1 Albumin/Globulin Ratio 1.3 08/03/22 05:59 WBC RBC Hgb Hct MCV MCH MCHC RDW Plt Count Neut % (Auto) Lymph % (Auto) [place] % (Auto) Eos % (Auto) Baso % (Auto) Lymph # (Auto) [place] # (Auto) Baso # (Auto) Total Counted Seg Neutrophils % Band Neutrophils % Lymphocytes % (Manual) Monocytes % (Manual) Eosinophils % (Manual) Neutrophils # (Manual) RBC Morphology Sodium 136 L Potassium 4.3 Chloride 97 L Carbon Dioxide 37 H BUN 23 H Creatinine 0.70 Estimated GFR > 60 BUN/Creatinine Ratio 32.9 H Glucose 163 H D Calcium 9.6 Magnesium 1.4 L Total Bilirubin 0.2 AST 16 ALT 18 Alkaline Phosphatase 42 Total Protein 5.3 L Albumin 3.0 L Globulin 2.3 Albumin/Globulin Ratio 1.3 [facility] Medical History Kershaw's disease Arthritis Asthma Chronic cough CKD (chronic kidney disease), stage III Diabetes Edema GERD (gastroesophageal reflux disease) Hiatal hernia HLD (hyperlipidemia) HTN (hypertension) Incontinence Interstitial lung disease Nasal polyp Neuropathy Pneumonia Polymyositis Sarcoidosis SCC (squamous cell carcinoma) Surgical History H/O wrist surgery History of arthroplasty of left knee History of arthroplasty of right knee Hx of bilateral cataract extraction Hx of cholecystectomy Hx of hernia repair Hx of tonsillectomy Status post correction of deviated nasal septum Social History household members: none Smoking Status: Never smoker alcohol intake: current Assessment & Plan Assessment & Plan narrative: 1. Acute hypoxic respiratory failure Likely secondary to a combination of volume overload/congestive heart failure and and metapneumovirus.? BNP was elevated at 4060 on 08/01/2022, procalcitonin was normal. She did have a low albumin as well as evidence of pulmonary hypertension, both of which would make it difficult to adequately diurese. She was placed on IV albumin which resulted in good diuresis with preserved blood pressures. She now appears euvolemic. She does have a very slight contraction alkalosis noted on today's labs. Furosemide has been discontinued..? Completed empiric Levaquin yesterday. Echocardiogram which was done on August 01 revealed an EF of 60 65%, normal RV size and function, mild tricuspid regurgitation.? RVSP is to be 37 mm plus the right atrial pressure.? 3. Pulmonary sarcoidosis She was given Solu-Medrol in the emergency department and after admission.? Placed on prednisone on 07/31/2022.? This will be continued.? She remains on CellCept, acyclovir, budesonide nebulizers. 4. Hyperglycemia Patient remains on Basaglar 15 units daily.? A1c was 6.6% consistent with good outpatient control.? Bllood sugars were more elevated yesterday. She was escalated to the medium control sliding scale. Today blood sugars reveal overall improvement. She has a significant component of steroid induced hyperglycemia. 5. Chronic pain syndrome Continue gabapentin and tramadol 6. Hypertension Blood pressures are normotensive presently.? Will monitor. 7. History of CKD GFR is greater than 60.? On July 29, creatinine was 1.18.? Presently stable at 0.7 8. GERD Currently asymptomatic not on chronic therapy. 9. Asthma Continue Singulair and nebulizers as needed Resolved issues: Sepsis Acute hypoxic respiratory failure Code status DNR Prophylaxis On Lovenox Disposition Anticipate home tomorrow with home health. Quality VTE Deep Vein Thrombosis/Pulmonary Embolism Present on Admission: No
[2022-08-03 07:15] LABS: Anisocytosis 1+; Neutrophils Absolute Manual 5330 /uL (3000-5900); Total Cells Counted 100
[2022-08-03] MEDS: BUDESONIDE 0.5 MG/2 ML NEB INH ×2 (08:17→21:07)
[2022-08-03] MEDS: ALBUTEROL 2.5 MG/3 ML NEB (ADULT) INH ×3 (08:17→21:07)
[2022-08-03] MEDS: INSULIN LISPRO 100 UNIT/ML 3ML VIAL SUBCUT ×2 (08:34→17:06)
[2022-08-03] MEDS: ACYCLOVIR 400 MG TABLET PO ×2 (08:35→20:22)
[2022-08-03] MEDS: MYCOPHENOLATE MOFETIL 500 MG TABLET 750 MG PO ×2 (08:35→20:21)
[2022-08-03] MEDS: CALCIUM CARBONATE 500 MG TAB PO ×2 (08:35→20:23)
[2022-08-03] MEDS: FOLIC ACID 1 MG TABLET PO (08:35)
[2022-08-03] MEDS: POTASSIUM CHLORIDE 20 MEQ TAB PO (08:35)
[2022-08-03] MEDS: LOSARTAN 25 MG TABLET PO (08:35)
[2022-08-03] MEDS: CHOLECALCIFEROL (VITAMIN D3) 1,000 UNIT TABLET 1000 UNIT PO (08:35)
[2022-08-03] MEDS: MAGNESIUM OXIDE 400 MG TABLET PO ×2 (08:35→20:21)
[2022-08-03] MEDS: METOCLOPRAMIDE HCL 5 MG TABLET 10 MG PO (08:36)
[2022-08-03] MEDS: GABAPENTIN 600 MG TABLET PO ×3 (08:36→20:22)
[2022-08-03] MEDS: TRAMADOL 50 MG TABLET 100 MG PO (08:36)
[2022-08-03] MEDS: LACTOBACILLUS ACIDOPHILUS TABLET 1 EACH PO (08:36)
[2022-08-03] MEDS: ENOXAPARIN 40 MG/0.4 ML SYRINGE SUBCUT (08:36)
[2022-08-03] MEDS: MAGNESIUM SULFATE 2 GM/50 ML PIGGYBACK IV (08:41)
[2022-08-03] MEDS: PANTOPRAZOLE DR 40 MG TABLET PO (08:41)
--- NOTE | 2022-08-03 11:20 | PT.IPTN ---
Current Diagnoses Pneumonia, unspecified organism (07/27/22) Physical Therapy Treatment Note M2 PT-IP Current Condition Start: 07/30/22 09:28 Freq: NEEDED Status: Active Protocol: Document 07/30/22 09:56 TH (Rec: 07/30/22 10:15 TH [id number]) Physical Therapy Current Condition Current Condition Evaluation Date 07/30/22 Treatment Diagnosis Rhino virus pos. M3 PT-IP Subjective Start: 07/30/22 09:28 Freq: NEEDED Status: Active Protocol: Document 08/03/22 11:03 KS (Rec: 08/03/22 12:24 KS [id number]) Subjective Physical Therapy Visit Type Type Treatment Note Visit Start Time 11:03 Visit Stop Time 11:20 Total Visit Minutes 17 Notes 124/76 Number of CHALK CUTTER Visits 3 Physical Therapy Visit Comments Patient Goals To return home at PLOF M4 PT-IP Mobility and Gait Start: 07/30/22 09:28 Freq: NEEDED Status: Active Protocol: Document 08/03/22 11:03 KS (Rec: 08/03/22 12:24 KS [id number]) PT-Bed Mobility Assessment Supine to Sit Supine to Sit Contact Guard Assistance Sit to Supine Sit to Supine Contact Guard Assistance Scooting Scooting to Edge of Bed Contact Guard Assistance PT-Transfer Assessment Sit to and From Stand Sit to and from Stand Contact Guard Assistance,1 Person Assistance,Use of Upper Extremities Equipment Transfer Assistive Device Front Wheeled Walker Transfers Transfer Destination Bed Transfer Technique Pt ambulated Transfer Ability Level of Assist Contact Guard Assistance Comments Mobility Comments Pt in bed upon arrival and agreeable to ambulate. CGA for bed mobility and sit<>Stand w / FWW. Pt then ambulated ~75 ft w/ FWW and CGA. She returned to bed and RN arrived to check pressure sore, pt reported fatigue and sit<>sup CGA. Left in bed w/ all needs in reach. Gait Assessment Gait Gait Assistance Required: Contact Guard Assist,1 Person Assist Distance (Feet) 75 Assistive Devices Assistive Device Gait Belt,Front Wheeled Walker Gait Deviations General Gait Pattern Decreased Stride Length, Decreased Feet Clearance, Flexed Trunk Comments Gait Comments Good use of FWW, mildy fatigued following ambulation. Stair Climbing Assessment Comments Stair Climbing Comments Feeling too fatigued to practice stairs today. Completed on 08/02 PT-Balance Assessment Sitting Balance and Reactions Static Sitting Balance Ability Normal Dynamic Sitting Balance Ability Good Standing Balance and Reactions Static Standing Balance Ability Normal Dynamic Standing Balance Ability Good Device Used FWW M5 PT-IP Objective Assessments Start: 07/30/22 09:28 Freq: NEEDED Status: Active Protocol: Document 07/30/22 09:56 TH (Rec: 07/30/22 10:15 TH [id number]) Orientation Orientation/Cognition Level of Alertness Alert Orientation Name,Place,Situation Language Function Ability No Deficits Noted Safety Awareness Understands Safety Issues Memory Description No Deficits Noted Gross Range of Motion Upper Extremity ROM Assessment Within Functional Limits Lower Extremity ROM Assessment Within Functional Limits Strength Upper Extremity Strength Assessment Within Functional Limits Lower Extremity Strength Assessment Within Functional Limits Comments Strength Comments Decreased endurance M6 PT-IP Treatment Start: 07/30/22 09:28 Freq: NEEDED Status: Active Protocol: Document 08/03/22 11:03 KS (Rec: 08/03/22 12:24 KS [id number]) Physical Therapy Treatment Exercises Exercises Ankle Pumps M7 PT-IP Assessment and Plan Start: 07/30/22 09:28 Freq: NEEDED Status: Active Protocol: Document 08/03/22 11:03 KS (Rec: 08/03/22 12:24 KS [id number]) PT Summary Assessment and Plan Potential Rehabilitation Potential Good Summary Impairments Activity Tolerance Progress Towards Goals Slow Progress due to Activity Tolerance Assessment Summary Pt progressing well. Still has rlatively quick approach to fatigue and reports SOB. Able to ambulate 75 ft w/ FWW and CGA for bed mobility and ambulation. Anticipate she will be safe to d/c home w/ assist and home health services when medically stable . Goals Bed Mobility Goal Independent Transfer Goal Independent Gait Goal Independent Other Goals up/down two steps with rail Frequency of Treatment Frequency Of Treatment Once a Day Treatment Plan Physical Therapy Treatment Plan Bed Mobility Training,Transfer Training,Gait Training, Therapeutic Exercise,Balance Retraining Other Recommendations and Next Treatment Increase ambulation, trail Focus stairs. Precautions Other Precautions Fall risk, Decreased O2 sats with activity may need O2 Recommendations To Nursing Amount of Assist Needed 1 Person Assist Discharge Recommendations PT Discharge Recommendations Home with Assistance,Home with 17/11 Assist Available,Home Health Equipment Needed for Home Before none, pt has all necessary Discharge equipment at home Transportation Needs at Discharge Private Vehicle
--- NOTE | 2022-08-03 11:40 | PC.NURSE ---
Patient is alert and oriented x4, she is a one person assist with walker to get up to the chair. She worked with physical therapy and tolerated well. Patient does have a small skin ulcer to the left inside bottom cheek that is open. Area looks like it is healing well, will put barrier cream to area when patient gets back to bed. Her morning blood sugar is 163. She is sititng up in the chair for lunch.
[2022-08-03] MEDS: INSULIN GLARGINE 100 UNIT/ML 3ML PEN 15 UNIT SUBCUT (11:58)
[2022-08-03] MEDS: MELATONIN 3 MG TABLET 6 MG PO (20:22)
[2022-08-03] MEDS: ATORVASTATIN 20 MG TABLET PO (20:22)
[2022-08-03] MEDS: guaiFENesin Solution 100 MG/5 ML UDC PO (23:49)
[2022-08-04] VITALS (7 sets, daily range): BP systolic 109–132; BP diastolic 52–64; PULSE 80–93; RESP 18–22; TEMP 36.2–37.3; O2SAT 93–95
[2022-08-04] MEDS: PANTOPRAZOLE DR 40 MG TABLET PO (06:14)
[2022-08-04 06:20] LABS: Hematocrit 33.8 % (36-46); Hemoglobin 10.9 g/dL (12.0-16.0); Mean Corpuscular HGB Conc 32.4 % (30-36); Mean Corpuscular Hemoglobin 28.2 PG (26-34); Platelet Count 234 X10^3/uL (150-400); Red Blood Cell Count 3.88 X10^6/uL (4.0-5.2); White Blood Cell Count 8.6 X10^3/uL (4.5-11.0)
[2022-08-04 06:22] LABS: Add Manual Diff / Slide Review YES
[2022-08-04 06:24] LABS: BUN Creatinine Ratio 32.3 (6-22); Blood Urea Nitrogen 20 mg/dL (7-17); Calcium 9.2 mg/dL (8.4-10.2); Carbon Dioxide 35 mmol/L (22-32); Chloride 96 mmol/L (98-107); Estimated Glomerular Filt Rate > 60 mL/min (>60); Glucose 125 mg/dL (80-110); HEMOLYSIS < 15 (0-50); Potassium 4.6 mmol/L (3.4-5.1); Sodium 133 mmol/L (137-145)
[2022-08-04 06:56] LABS: Anisocytosis 1+; Neutrophils Absolute Manual 5074 /uL (3000-5900); Nucleated Red Blood Cells 1 #/Diff; Total Cells Counted 100
[2022-08-04] MEDS: GABAPENTIN 600 MG TABLET PO (08:18)
[2022-08-04] MEDS: LACTOBACILLUS ACIDOPHILUS TABLET 1 EACH PO (08:18)
[2022-08-04] MEDS: ALBUTEROL 2.5 MG/3 ML NEB (ADULT) INH ×2 (08:19→12:54)
[2022-08-04] MEDS: LOSARTAN 25 MG TABLET PO (08:19)
[2022-08-04] MEDS: POTASSIUM CHLORIDE 20 MEQ TAB PO (08:19)
[2022-08-04] MEDS: TRAMADOL 50 MG TABLET 100 MG PO (08:19)
[2022-08-04] MEDS: BUDESONIDE 0.5 MG/2 ML NEB INH (08:19)
[2022-08-04] MEDS: FOLIC ACID 1 MG TABLET PO (08:19)
[2022-08-04] MEDS: ACYCLOVIR 400 MG TABLET PO (08:19)
[2022-08-04] MEDS: CALCIUM CARBONATE 500 MG TAB PO (08:20)
[2022-08-04] MEDS: ENOXAPARIN 40 MG/0.4 ML SYRINGE SUBCUT (08:20)
[2022-08-04] MEDS: MYCOPHENOLATE MOFETIL 500 MG TABLET 750 MG PO (08:20)
[2022-08-04] MEDS: CHOLECALCIFEROL (VITAMIN D3) 1,000 UNIT TABLET 1000 UNIT PO (08:21)
[2022-08-04] MEDS: MAGNESIUM OXIDE 400 MG TABLET PO (08:21)
--- NOTE | 2022-08-04 09:01 | P.DS_ITS ---
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 Patient stated she had a fever of 101 F last night at home by self measurement. She has been on doxycycline for a week prescribed by her pulmonology team.? She has not been improving and has had increasing cough with green productive sputum, shortness of breath and occasional chest pain.? Patient has not had any syncope.? She denied GI or urinary symptoms.? She has not had significant new swelling in her extremities.? Patient states she is typically on prednisone daily and is at 4 mg currently.? She does use inhaler she has not found that very helpful.? She does not normally use home O2, no BiPAP, CPAP or other interventions other than her inhalers.? Patient stated she had prior knee surgeries remotely but has never had any cardiac interventions, no cardiac stents or cardiopulmonary surgery or abdominal surgery.? They stated she is allergic to penicillin and sulfa. Discharge Providers Provider Date of admission: 07/27/22 13:17 Discharge Date: 08/04/22 Primary care physician: Donny Avendano MD Consults: 07/29/22 10:44 Consult to Physical Therapy Evaluate & Treat Comment: Physician Instructions: Evaluate and Treat 08/02/22 14:25 Consult to Home Health Routine Comment: Reason For Exam: Home w/home health upon discharge Discharge provider: Donny Ambrocio DO Summary Hospital Course Discharge Diagnosis: 1. Acute hypoxic respiratory failure secondary to human metapneumovirus and acute on chronic diastolic heart failure with pulmonary HTN. 3. Pulmonary sarcoidosis 4. Hyperglycemia 5. Chronic pain syndrome 6. Hypertension 7. History of CKD 8. GERD 9. Asthma Hospital Course: This is a 72 year old female who was admitted with acute respiratory failure with hypoxia. Etiology was likely multifactorial due to human metapneumovirus infection and acute on chronic diastolic heart failure. She was intially improving on therapies, but still required minimal oxygen and worsening hypoxia with activity. Given initial improvement and history, PE was considered low probability and CTA not performed. Repeat evaluation was ordered with further elevated proBNP. She was diuresed and appears euvolemic but still requires minimal supplemental O2 with activity. She wished to discharge home with home oxygen. This was performed after patient appeared euvolemic, had completed steroids for possible pulmonary sarcoidosis flare or asthma exacerbation and felt symptomatically improved. She did have hyperglycemia due to the steroids, which improved with cessation. I recommend outpatient follow up with her specialist care team including pulmologist in the coming weeks for her continued hypoxia and pulmonary HTN. Time Spent with Patient Time spent: Greater than 30 minutes Exam Vital Signs (past 8 hours): - 08/04/22 04:00 08/04/22 08:19 08/04/22 08:19 Temperature 97.7 F Pulse Rate 80 91 H Respiratory Rate 22 18 Blood Pressure 132/64 132/64 Pulse Oximetry 93 93 Oxygen Delivery Method Room Air Nasal Cannula Oxygen Flow Rate 2 Fraction of Inspired Oxygen 28 Fraction of Inspired Oxygen 28 SaO2/FiO2 Ratio 332 Oxygen Delivery Method Room Air,Nasal Cannula Oxygen Flow Rate 2 Narrative Exam Narrative: GEN:? Very pleasant elderly female, Alert and oriented x 3, NAD HEENT:NC, Face symmetric CHEST: Respiratory excursions symmetric, diffuse crackles/rhonchi, coarse CV: RRR, no M/R/G ABD: Soft, NT/ND, BT present in all 4 quadrants, no organomegaly or masses EXTR: warm, well perfused, no C/C/E SKIN: warm and dry, no rash NEURO: Alert and oriented x 3, nonfocal Objective Labs 08/04/22 05:16 08/04/22 05:16 Labs: Laboratory Results - last 24 hr 08/04/22 08/04/22 05:16 05:16 WBC 8.6 RBC 3.88 L Hgb 10.9 L Hct 33.8 L MCV 87.0 MCH 28.2 MCHC 32.4 RDW 15.0 H Plt Count 234 Neut % (Auto) Not Reportable Lymph % (Auto) Not Reportable [place] % (Auto) Not Reportable Eos % (Auto) Not Reportable Baso % (Auto) Not Reportable Lymph # (Auto) Not Reportable [place] # (Auto) Not Reportable Baso # (Auto) Not Reportable Total Counted 100 Seg Neutrophils % 57.0 Band Neutrophils % 2.0 L Lymphocytes % (Manual) 25.0 Monocytes % (Manual) 15.0 H Eosinophils % (Manual) 1.0 L Neutrophils # (Manual) 5074 Nucleated RBCs 1 H RBC Morphology See below Anisocytosis 1+ H Sodium 133 L Potassium 4.6 Chloride 96 L Carbon Dioxide 35 H BUN 20 H Creatinine 0.62 Estimated GFR > 60 BUN/Creatinine Ratio 32.3 H Glucose 125 H Calcium 9.[address] [place]'s disease Arthritis Asthma Chronic cough CKD (chronic kidney disease), stage III Diabetes Edema GERD (gastroesophageal reflux disease) Hiatal hernia HLD (hyperlipidemia) HTN (hypertension) Incontinence Interstitial lung disease Nasal polyp Neuropathy Pneumonia Polymyositis Sarcoidosis SCC (squamous cell carcinoma) Surgical History H/O wrist surgery History of arthroplasty of left knee History of arthroplasty of right knee Hx of bilateral cataract extraction Hx of cholecystectomy Hx of hernia repair Hx of tonsillectomy Status post correction of deviated nasal septum Social History household members: none Smoking Status: Never smoker alcohol intake: current Discharge Plan Discharge Plan Patient Disposition: Home Health Service Discharge orders & Medications Prescriptions: Continued cyclobenzaprine 10 mg tablet 10 mg PO TID PRN (Reason: muscle spasm) Qty: 10 0RF Patient Comments: Pt does not take anymore acetaminophen 325 mg tablet 500 mg PO Q6HR PRN (Reason: Pain, Mild (1-3)) cetirizine 10 mg Tablet 10 mg PO QPM folic acid 400 mcg Tablet 0.4 mg PO QAM calcium carbonate-vitamin D2 600 mg calcium- 200 unit Tablet 1 tab PO DAILY Probiotic 20 billion cell Capsule 20,000 mmu cells PO QAM hydromorphone 2 mg tablet 2 mg PO Q6H PRN (Reason: pain) Qty: 30 0RF lidocaine 4 % adhesive patch,medicated 1 patch topical DAILY Qty: 15 0RF Patient Comments: Pt does not take anymore Rx Instructions: apply to painful area of lower back losartan 50 mg Tablet 25 mg PO QAM prednisone 5 mg Tablet 4 mg PO QAM acyclovir 400 mg Tablet 400 mg PO BID mycophenolate mofetil [CellCept] 500 mg Tablet 750 mg PO BID gabapentin 300 mg Capsule 600 mg PO TID montelukast 10 mg Tablet 10 mg PO BEDTIME metoclopramide HCl 10 mg Tablet 10 mg PO TID rosuvastatin [Crestor] 10 mg Tablet 10 mg PO BEDTIME insulin glargine [Basaglar KwikPen U-100 Insulin] 100 unit/mL (3 mL) Insulin Pen 15 unit SUBCUT QAM potassium chloride 20 mEq Tablet Extended Release 20 meq PO QAM docusate sodium [DOK] 100 mg Capsule 100 mg PO BID Qty: 40 0RF Patient Comments: Pt does not take anymore Follow up/Referrals: Donny Avendano MD [Primary Care Provider] - Diet/Activity/Treatments Diet: Diet as Tolerated Activity: As tolerated Oxygen: Home o2 as needed, O2 between 89-96% while using. Visit Report/Discharge Packet Instructions: Home Oxygen Therapy, DI for Pneumonia -- Adult Stand Alone Forms: Patient Portal/API, Stroke Signs & Symptoms Discharge Data Primary Care Provider: Donny Avendano Discharges patient from system. Discharge Date/Time: 08/04/22 13:30 Quality VTE Deep Vein Thrombosis/Pulmonary Embolism Present on Admission: No
--- NOTE | 2022-08-04 09:24 | PC.NURSE ---
Patient refused her 15u of insulin to be given this am. She did not eat well at breakfast. She would like to see how she eats at lunch and then possibly have the Lantus.
--- NOTE | 2022-08-04 09:53 | PT.IPTN ---
Current Diagnoses Pneumonia, unspecified organism (07/27/22) Physical Therapy Treatment Note M2 PT-IP Current Condition Start: 07/30/22 09:28 Freq: NEEDED Status: Active Protocol: Document 07/30/22 09:56 TH (Rec: 07/30/22 10:15 TH [id number]) Physical Therapy Current Condition Current Condition Evaluation Date 07/30/22 Treatment Diagnosis Rhino virus pos. M3 PT-IP Subjective Start: 07/30/22 09:28 Freq: NEEDED Status: Active Protocol: Document 08/04/22 10:17 TS (Rec: 08/04/22 10:32 TS [id number]) Subjective Physical Therapy Visit Type Type Treatment Note Visit Start Time 09:53 Visit Stop Time 10:10 Total Visit Minutes 17 Number of POULTRY PINNER Visits 4 Physical Therapy Visit Comments Patient Comments Pt reports she is feeling good today and ready to go home, agreeable to PT session. Patient Goals To return home at PLOF M4 PT-IP Mobility and Gait Start: 07/30/22 09:28 Freq: NEEDED Status: Active Protocol: Document 08/04/22 10:17 TS (Rec: 08/04/22 10:32 TS [id number]) PT-Transfer Assessment Sit to and From Stand Sit to and from Stand Standby Assistance,1 Person Assistance,Use of Upper Extremities Equipment Transfer Assistive Device Front Wheeled Walker Comments Mobility Comments Pt found resting in bedside chair, agreeable to PT. Sit to stand x2 SBA with use of UE support on arms of chair, stood with no AD. Pt ambulated in room w/FWW ~65' SBA, reported some dizziness/SOB, wobbly LEs, no signs of buckling or LOB. Pt performed one high step CGA with BUE support, no LOB. Pt left in bedside chair, call light nearby, all needs met. Gait Assessment Gait Gait Assistance Required: Standby Assistance,1 Person Assist Distance (Feet) 65 Assistive Devices Assistive Device Gait Belt,Front Wheeled Walker Gait Deviations General Gait Pattern Decreased Stride Length, Decreased Feet Clearance, Flexed Trunk Comments Gait Comments Good use of FWW, mildy fatigued following ambulation. Stair Climbing Assessment Evaluation Level of Assist On Stairs Contact Guard Assistance Devices Stair Climbing Assistive Devices Front Wheel Walker,Left Railing Technique/Endurance Stair Climbing Direction Ascend and Descend Stair Climbing Technique Step to Step Number of Steps Climbed 1 Comments Stair Climbing Comments See mobility comments. PT-Balance Assessment Sitting Balance and Reactions Static Sitting Balance Ability Normal Dynamic Sitting Balance Ability Good Standing Balance and Reactions Static Standing Balance Ability Normal Dynamic Standing Balance Ability Good Device Used FWW Comments Other Balance Tests/Deviations/Treatment Pt stood with no AD and good : upright posture. M5 PT-IP Objective Assessments Start: 07/30/22 09:28 Freq: NEEDED Status: Active Protocol: Document 07/30/22 09:56 TH (Rec: 07/30/22 10:15 TH [id number]) Orientation Orientation/Cognition Level of Alertness Alert Orientation Name,Place,Situation Language Function Ability No Deficits Noted Safety Awareness Understands Safety Issues Memory Description No Deficits Noted Gross Range of Motion Upper Extremity ROM Assessment Within Functional Limits Lower Extremity ROM Assessment Within Functional Limits Strength Upper Extremity Strength Assessment Within Functional Limits Lower Extremity Strength Assessment Within Functional Limits Comments Strength Comments Decreased endurance M6 PT-IP Treatment Start: 07/30/22 09:28 Freq: NEEDED Status: Active Protocol: Document 08/04/22 10:17 TS (Rec: 08/04/22 10:32 TS [id number]) Physical Therapy Treatment Exercises Exercises Ankle Pumps M7 PT-IP Assessment and Plan Start: 07/30/22 09:28 Freq: NEEDED Status: Active Protocol: Document 08/04/22 10:17 TS (Rec: 08/04/22 10:32 TS [id number]) PT Summary Assessment and Plan Potential Rehabilitation Potential Good Summary Impairments Activity Tolerance Progress Towards Goals Slow Progress due to Activity Tolerance Assessment Summary Pt is on 1L of o2 at 93% resting in chair at start of session. She performed sit to stand x2 SBA with no AD, she ambulated ~65' SBA, c/o some dizziness and LE's feeling wobbly, no signs of buckling or LOB. After 65' of ambulation pt sat in chair, o2 89%-90% on 1L, increased to 2L 93%. Pt performed one high step BUE support on FWW and counter CGA, pt's two steps at home are lower. After steps pt's o2 decreased to 89% on 2L , recovered to 93% after 30 secs and cues for PLB. PT is recommending 24/ home assist available with HH and HHPT. Pt reports she has friends, neighbors and [employer] group members that can help her, neighbor can be at her within a couple mins. Goals Bed Mobility Goal Independent Transfer Goal Independent Gait Goal Independent Other Goals up/down two steps with rail Frequency of Treatment Frequency Of Treatment Once a Day Treatment Plan Physical Therapy Treatment Plan Bed Mobility Training,Transfer Training,Gait Training, Therapeutic Exercise,Balance Retraining Other Recommendations and Next Treatment Increase ambulation, trail Focus stairs. Precautions Other Precautions Fall risk, Decreased O2 sats with activity may need O2 Recommendations To Nursing Amount of Assist Needed 1 Person Assist Discharge Recommendations PT Discharge Recommendations Home with Assistance,Home with 24/7 Assist Available,Home Health Equipment Needed for Home Before none, pt has all necessary Discharge equipment at home Transportation Needs at Discharge Private Vehicle
[2022-08-04] MEDS: predniSONE 20 MG TABLET PO (10:38)
--- NOTE | 2022-08-04 12:13 | CM.DPC ---
DCP/continued: Reviewed chart. Received notification that patient medically cleared to d/c home today. Home health arranged through [facility] Home 02 arranged by respiratory. RN provided with [facility] brochure to provide patient with d/c instructions. P: Home today with [facility]. Agency has been notified and [facility]/Esme will fax d/c summary when available. GONZALO
[2022-08-04] MEDS: INSULIN LISPRO 100 UNIT/ML 3ML VIAL SUBCUT (12:26)
[2022-08-04] MEDS: INSULIN GLARGINE 100 UNIT/ML 3ML PEN 15 UNIT SUBCUT (12:28)
--- NOTE | 2022-08-04 13:54 | PC.NURSE ---
IV removed. Discussed s/s of stroke, home O2, worsening symptoms for pneumonia and when to call or be seen by HCP. Went over activity tolerance, hydration-drinking plenty of fluids and nutrition-eating small frequent meals. Pt had no further questions. Was wheeled out to private vehicle via wheelchair with family friend.
== END 2022-08-04 13:30 | disposition home health service (06) | DRG 871 ==
LOC: ED 12:59 → AC 13:18
PROVIDERS: Family Medicine; Internal Medicine; Admitting Provider Neuromusculoskeletal Medicine, Sports Medicine; Emergency Provider Emergency Medicine; PCP Family Medicine; Referring Provider Emergency Medicine; Visit Provider Neuromusculoskeletal Medicine, Sports Medicine
DX: A41.9 Sepsis, unspecified organism (principal); I50.33 Acute on chronic diastolic (congestive) heart failure; J96.01 Acute respiratory failure with hypoxia; E27.1 Primary adrenocortical insufficiency; D84.9 Immunodeficiency, unspecified; G89.29 Other chronic pain; R11.0 Nausea; E78.5 Hyperlipidemia, unspecified; K21.9 Gastro-esophageal reflux disease without esophagitis; D86.0 Sarcoidosis of lung; R73.9 Hyperglycemia, unspecified; B97.81 Human metapneumovirus as the cause of diseases classified elsewhere; J45.909 Unspecified asthma, uncomplicated; I27.20 Pulmonary hypertension, unspecified; T38.0X5A Adverse effect of glucocorticoids and synthetic analogues, initial encounter; I11.0 Hypertensive heart disease with heart failure; Z20.822 Contact with and (suspected) exposure to COVID-19; Z79.52 Long term (current) use of systemic steroids; Z66 Do not resuscitate; Z88.0 Allergy status to penicillin
CPT/HCPCS: 36415; 71045; 80048; 80053; 80202; 82550; 82553; 82962; 83036; 83605; 83690; 83735; 83880; 84145; 84484; 85007; 85025; 85610; 85730; 86140; 87040; 87633; 87797; 93005; 93306; 94618; 94640; 94760; 96365; 96375; 97110; 97116; 97530; 99285; J1650; J1815; J1940; J1956; J2405; J2930; J3475; J7613; P9041

== ENCOUNTER 2022-11-11 13:48 | Inpatient (IN) | payer MEDICARE, BC, SELFPAY ==
[2022-07-27 13:21] VITALS: BMI 32.3
[2022-11-11] VITALS (16 sets, daily range): BP systolic 104–140; BP diastolic 54–85; PULSE 61–94; RESP 15–25; TEMP 36–37.9; O2SAT 91–97; BMI 30.2
--- NOTE | 2022-11-11 14:15 | DI.RAD.S_ITS ---
PROCEDURE: XR CHEST 1V INDICATIONS: cough fever TECHNIQUE: One view of the chest was acquired. COMPARISON: [facility], CR, XR CHEST 1V, 07/31/2022, 11:37. FINDINGS: Surgical changes and devices: None. Lungs and pleura: Pulmonary vascular congestion is seen. There is suggestion of pulmonary edema. Ill-defined airspace opacity in left lower lung field is seen concerning for left lower lobe patchy infiltrates. No pleural effusions or pneumothorax. Mediastinum: Mediastinal contours appear normal. Heart size is normal. Bones and chest wall: No suspicious bony lesions. Overlying soft tissues appear unremarkable. IMPRESSION: Finding is concerning for small left lower lobe infiltrates. Bilateral lung aeration has improved since previous study. Pulmonary vascular congestion and mild pulmonary edema. No pleural effusion or pneumothorax. Dictated by: Elijah Gill M.D. on 11/11/2022 at 14:54 Approved by: Elijah Gill M.D. on 11/11/2022 at 14:58
[2022-11-11 14:29] LABS: Add Manual Diff / Slide Review NO; Basophils Absolute Auto 0 /uL (0-100); Basophils Percent Auto 0.4 % (0-2); Eosinophils Absolute Auto 100 /uL (0-450); Eosinophils Percent Auto 0.7 % (2-4); Hematocrit 29.7 % (36-46); Hemoglobin 9.7 g/dL (12.0-16.0); Lymphocytes Absolute Auto 500 /uL (1100-4500); Lymphocytes Percent Auto 4.1 % (25-40); Mean Corpuscular HGB Conc 32.6 % (30-36); Mean Corpuscular Hemoglobin 29.6 PG (26-34); Mean Corpuscular Volume 90.7 fL (80-100); Monocytes Absolute Auto 1400 /uL (0-900); Monocytes Percent Auto 10.7 % (3-14); Neutrophils Absolute Auto 11300 /uL (1500-7000); Neutrophils Percent Auto 84.1 % (50-75); Platelet Count 301 X10^3/uL (150-400); Red Blood Cell Count 3.28 X10^6/uL (4.0-5.2); Red Cell Distribution Width 14.8 % (11.6-14.8); White Blood Cell Count 13.5 X10^3/uL (4.5-11.0)
[2022-11-11 14:30] LABS: INR 1.2 (0.9-1.3); Prothrombin Time 14.2 SECONDS (10.1-12.7)
[2022-11-11 14:34] LABS: Alanine Aminotransferase 12 IU/L (<35); Albumin 3.4 g/dL (3.5-5.0); Albumin Globulin Ratio 1.2 (1.0-2.8); Alkaline Phosphatase 81 U/L (38-126); Aspartate Aminotransferase 19 IU/L (14-36); BUN Creatinine Ratio 18.1 (6-22); Bilirubin Total 0.8 mg/dL (0.2-1.3); Blood Urea Nitrogen 15 mg/dL (7-17); Calcium 9.1 mg/dL (8.4-10.2); Chloride 88 mmol/L (98-107); Creatine Kinase 54 U/L (30-135); Estimated Glomerular Filt Rate > 60 mL/min (>60); Globulin 2.8 g/dL (1.7-4.1); Glucose 170 mg/dL (80-110); HEMOLYSIS < 15 (0-50); Potassium 4.7 mmol/L (3.4-5.1); Sodium 131 mmol/L (137-145); Total Protein 6.2 g/dL (6.3-8.2)
[2022-11-11 14:35] LABS: Lactate (Lactic Acid) 0.9 mmol/L (0.7-2.1); PTT Partial Thromboplastin Tim 40 SECONDS (26-36)
[2022-11-11 14:40] LABS: Carbon Dioxide 39 mmol/L (22-32)
[2022-11-11 14:46] LABS: NT-proBNP (BNP-Adult 18+) 186 pg/mL (<125); Troponin I < 0.012 ng/mL (0.01-0.034)
[2022-11-11 14:50] LABS: Procalcitonin 0.15 ng/mL (<0.5)
--- NOTE | 2022-11-11 14:52 | ED_ITS ---
HPI - SOB/Dyspnea General Chief Complaint: Shortness of Breath/Dyspnea Stated Complaint: SOB Time Seen by Provider: 11/11/22 14:15 Source: patient and EMS Mode of arrival: EMS Limitations: no limitations History of Present Illness HPI Narrative: Patient is a 72-year-old female history of sarcoidosis, myositis, hypertension, dyslipidemia, pulmonary fibrosis presenting today with 6 days of cough fever and increasing shortness of breath. She reports she is generalized body aches decreased appetite and increased fatigue. She has a productive cough she just generally does not feel well. Abdominal pain nausea or vomiting. Patient reports that she would a virus earlier in the urine she just has not quite recov ered. Related Data Home Medications Medication Instructions Recorded Confirmed acyclovir 400 mg tablet 400 mg PO BID 06/27/19 07/27/22 gabapentin 300 mg capsule 600 mg PO TID 06/27/19 07/27/22 insulin glargine 100 unit/mL (3 15 unit SUBCUT QAM 06/27/19 07/27/22 mL) subcutaneous pen (myWebRoomaglar Mobi-MotoikPen U-100 Insulin) losartan 50 mg tablet 25 mg PO QAM 06/27/19 07/27/22 metoclopramide HCl 10 mg tablet 10 mg PO TID 06/27/19 07/27/22 montelukast 10 mg tablet 10 mg PO BEDTIME 06/27/19 07/27/22 mycophenolate mofetil 500 mg 750 mg PO BID 06/27/19 07/27/22 tablet (CellCept) potassium chloride 20 mEq 20 meq PO QAM 06/27/19 07/27/22 tablet,extended release prednisone 5 mg tablet 4 mg PO QAM 06/27/19 07/27/22 rosuvastatin 10 mg tablet (Crestor) 10 mg PO BEDTIME 06/27/19 07/27/22 acetaminophen 325 mg tablet 500 mg PO Q6HR PRN Pain, Mild (1-3) 10/24/20 07/27/22 calcium carb-ergocalciferol (vit 1 tab PO DAILY 10/24/20 07/27/22 D2) 600 mg calcium-200 unit tablet cetirizine 10 mg tablet 10 mg PO QPM 10/24/20 07/27/22 folic acid 400 mcg tablet 0.4 mg PO QAM 10/24/20 07/27/22 lactobacillus comb no.10 20 20,000 mmu cells PO QAM 10/24/20 07/27/22 billion cell capsule (Probiotic) Previous Rx's Medication Instructions Recorded docusate sodium 100 mg capsule 100 mg PO BID #40 caps 07/12/19 (DOK) cyclobenzaprine 10 mg tablet 10 mg PO TID PRN muscle spasm #10 10/21/20 tabs hydromorphone 2 mg tablet 2 mg PO Q6H PRN pain #30 tabs 10/25/20 lidocaine 4 % topical patch 1 patch topical DAILY #15 ea 10/25/20 Allergies Allergy/AdvReac Type Severity Reaction Status Date / Time Penicillins Allergy Severe Swelling Verified 11/11/22 14:34 of Lip/Tongue/Throat amoxicillin Allergy Intermediate Hives Verified 11/11/22 14:34 oxycodone Allergy Intermediate Hives Verified 11/11/22 14:34 Sulfa (Sulfonamide Allergy Intermediate Hives Verified 11/11/22 14:34 Antibiotics) Review of Systems Review of Systems ROS Unobtainable: All systems reviewed & are unremarkable except as noted in HPI and below Patient History Medical History Butler's disease Arthritis Asthma Chronic cough CKD (chronic kidney disease), stage III Diabetes Edema GERD (gastroesophageal reflux disease) Hiatal hernia HLD (hyperlipidemia) HTN (hypertension) Incontinence Interstitial lung disease Nasal polyp Neuropathy Pneumonia Polymyositis Sarcoidosis SCC (squamous cell carcinoma) Surgical History H/O wrist surgery History of arthroplasty of left knee History of arthroplasty of right knee Hx of bilateral cataract extraction Hx of cholecystectomy Hx of hernia repair Hx of tonsillectomy Status post correction of deviated nasal septum Social History household members: none Smoking Status: Never smoker alcohol intake: current Smoking Status: Never smoker alcohol intake frequency: holidays/special occasions only Substance Use Type: does not use Exam Initial Vital Signs Initial Vital Signs: Vital Signs Temperature 100.3 F H 11/11/22 13:50 Pulse Rate 61 11/11/22 13:50 Respiratory Rate 18 11/11/22 13:50 Blood Pressure 140/85 11/11/22 13:50 Pulse Oximetry 95 11/11/22 13:50 Oxygen Delivery Method Nasal Cannula 11/11/22 13:50 Oxygen Flow Rate 1.5 11/11/22 13:50 GENERAL: Alert week 72-year-old female HEENT: Head atraumatic,EOMI, pupils reactive, face symmetric, [moist] mucous membranes CARDIOVASCULAR: Regular rate and rhythm without murmurs, rubs or gallops. RESPIRATORY: Coarse breath sounds bilaterally no obvious respiratory distress no conversational dyspnea ABDOMEN: Soft, nontender. Normoactive bowel sounds all 4 quadrants. No guarding or rebound. EXTREMITIES: Normal range of motion, no clubbing or edema. Neurovascularly intact NEUROLOGICAL: Alert and oriented x4.Normal gait and speech. SKIN: Warm, dry, no laceration, no petechiae, no rashes or lesions. Course Orders Ordered: ED Orders 11/11/22 14:05 Complete Blood Count AUTO DIFF Stat Comprehensive Metabolic Panel Stat Lactate (Lactic Acid) Stat Magnesium Urgent NT-proBNP (BNP-Adult 18+) Stat PTT Partial Thromboplastin Cristino Stat Procalcitonin Stat Prothrombin Time INR Stat Respiratory Panel (Film Array) Stat Troponin & CK Cardiac Panel Stat 11/11/22 14:15 XR chest 1V Stat EKG-12 Lead Stat 11/11/22 14:40 Blood Culture Stat 11/11/22 15:30 Sputum Culture Stat 11/11/22 17:55 Urinalysis and Microscopic Stat 11/12/22 05:00 BMP [Basic Metabolic Panel] DAILY CBC Auto Diff [Complete Blood Count AUTO DIFF] DAILY Procalcitonin Urgent 11/13/22 05:00 BMP [Basic Metabolic Panel] DAILY CBC Auto Diff [Complete Blood Count AUTO DIFF] DAILY 11/14/22 05:00 BMP [Basic Metabolic Panel] DAILY CBC Auto Diff [Complete Blood Count AUTO DIFF] DAILY Acetaminophen (Acetaminophen 325 Mg Tablet) 650 mg PO Q4H [facility]UM[facility] Last Admin: 11/11/22 17:10 Dose: Not Given Documented By: AMV Atorvastatin Calcium (Atorvastatin 20 Mg Tablet) 20 mg PO BEDTIME [facility] Azithromycin (Azithromycin 250 Mg Tablet) 500 mg PO DAILY [facility] Stop: 11/13/22 09:01 Last Admin: 11/11/22 17:46 Dose: 500 mg Documented By: AMV Benzonatate (Benzonatate 100 Mg Capsule) 100 mg PO TID PRN PRN Reason: Cough Last Admin: 11/11/22 17:45 Dose: 100 mg Documented By: AMV Cyclobenzaprine HCl (Cyclobenzaprine 10 Mg Tablet) 10 mg PO TID PRN PRN Reason: muscle spasm Dextrose (Dextrose 50 % In Water 25 Gm/50 Ml Syringe) 25 gm IV PRN PRN PRN Reason: Hypoglycemia Enoxaparin Sodium (Enoxaparin 40 Mg/0.4 Ml Syringe) 40 mg SUBCUT DAILY [facility] Last Admin: 11/11/22 17:46 Dose: 40 mg Documented By: AMV Gabapentin (Gabapentin 300 Mg Capsule) 600 mg PO TID [facility] Guaifenesin (Guaifenesin Er 600 Mg Tab) 600 mg PO BID [facility] Last Admin: 11/11/22 17:53 Dose: 600 mg Documented By: AMV Hydromorphone HCl (Hydromorphone 2 Mg Tablet) 2 mg PO Q6H PRN PRN Reason: pain Ceftriaxone Sodium 2,000 mg/ (Sodium Chloride) 100 mls @ 200 mls/hr IV Q24H [facility] Stop: 11/15/22 21:01 Magnesium Sulfate (Magnesium Sulfate) 2 gm in 50 mls @ 25 mls/hr IV NOW ONE Stop: 11/11/22 20:02 Insulin Glargine (Insulin Glargine 100 Unit/Ml 3ml Pen) 15 unit SUBCUT DAILY [facility] Insulin Human Lispro (Insulin Lispro 100 Unit/Ml 3ml Vial) 0 unit SUBCUT ACHS [facility]; Protocol Last Admin: 11/11/22 17:46 Dose: Not Given Documented By: AMV Loratadine (Loratadine 10 Mg Tablet) 10 mg PO DAILY [facility] Melatonin (Melatonin 3 Mg Tablet) 6 mg PO BEDTIME PRN PRN Reason: Insomnia Montelukast Sodium (Montelukast 10 Mg Tablet) 10 mg PO BEDTIME [facility] Naloxone HCl (Naloxone 0.4 Mg/Ml Vial) 0.2 mg IV Q2MIN PRN PRN Reason: Opiate Reversal Polyethylene Glycol (Polyethylene Glycol 3350 17 Gm Powd.Pack) 17 gm PO DAILY PRN PRN Reason: Constipation Sennosides (Sennosides 8.6 Mg Tablet) 8.6 mg PO BID PRN PRN Reason: Constipation Discontinued Medications Acetaminophen (Acetaminophen 650 Mg Supp) 650 mg WI NOW ONE Stop: 11/11/22 15:09 Last Admin: 11/11/22 15:25 Dose: Not Given Documented By: AMV Acetaminophen (Acetaminophen 325 Mg Tablet) 975 mg PO NOW ONE Stop: 11/11/22 15:21 Last Admin: 11/11/22 15:25 Dose: 975 mg Documented By: CHARLES Cefepime HCl 2 gm/ Sodium (Chloride) 100 mls @ 200 mls/hr IV NOW ONE Stop: 11/11/22 15:22 Last Infusion: 11/11/22 16:05 Dose: 0 mls/hr Documented By: Admin: 11/11/22 15:27 Dose: 200 mls/hr Documented By: CHARLES Vancomycin HCl (Vancomycin) 1,000 mg in 200 mls @ 200 mls/hr IV NOW ONE Stop: 11/11/22 16:20 Last Infusion: 11/11/22 17:35 Dose: 0 mls/hr Documented By: Admin: 11/11/22 16:05 Dose: 200 mls/hr Documented By: CHARLES Vital Signs Vital signs: Vital Signs - 8 hr 11/11/22 13:50 11/11/22 15:34 11/11/22 16:03 Temperature 100.3 F H 99.2 F Pulse Rate 61 87 Respiratory Rate 18 21 Blood Pressure 140/85 123/58 L Pulse Oximetry 95 96 Oxygen Delivery Method Nasal Cannula Nasal Cannula Oxygen Flow Rate 1.5 1.5 11/11/22 15:18 11/11/22 15:18 11/11/22 15:30 Temperature Pulse Rate 94 H 91 H Respiratory Rate 25 H 21 Blood Pressure 121/55 L Pulse Oximetry 95 95 Oxygen Delivery Method Oxygen Flow Rate 11/11/22 15:56 11/11/22 15:56 11/11/22 16:00 Temperature Pulse Rate 86 Respiratory Rate 23 Blood Pressure 119/56 L 116/55 L Pulse Oximetry 93 Oxygen Delivery Method Oxygen Flow Rate 11/11/22 16:00 11/11/22 16:38 11/11/22 16:30 Temperature 99.2 F Pulse Rate 86 Respiratory Rate 18 Blood Pressure 104/54 L Pulse Oximetry 91 Oxygen Delivery Method Nasal Cannula Oxygen Flow Rate 1.5 11/11/22 16:30 11/11/22 17:00 11/11/22 17:30 Temperature Pulse Rate 82 82 79 Respiratory Rate 15 19 17 Blood Pressure Pulse Oximetry 92 93 95 Oxygen Delivery Method Nasal Cannula Oxygen Flow Rate 1.5 MDM - SOB/Dyspnea Lab Data 11/11/22 14:05 11/11/22 14:05 Labs: Lab Results 11/11/22 11/11/22 11/11/22 Range/Units 14:05 14:05 14:05 WBC 13.5 H (4.5-11.0) X10^3/uL RBC 3.28 L (4.0-5.2) X10^6/uL Hgb 9.7 L (12.0-16.0) g/dL Hct 29.7 L (36-46) % MCV 90.7 (80-100) fL MCH 29.6 (26-34) PG MCHC 32.6 (30-36) % RDW 14.8 (11.6-14.8) % Plt Count 301 (150-400) X10^3/uL Neut % (Auto) 84.1 H (50-75) % Lymph % (Auto) 4.1 L (25-40) % [place] % (Auto) 10.7 (3-14) % Eos % (Auto) 0.7 L (2-4) % Baso % (Auto) 0.4 (0-2) % Neut # (Auto) 65487 H (6263-5980) /uL Lymph # (Auto) 500 L (7333-6956) /uL [place] # (Auto) 1400 H (0-900) /uL Eos # (Auto) 100 (0-450) /uL Baso # (Auto) 0 (0-100) /uL PT 14.2 H (10.1-12.7) SECONDS INR 1.2 (0.9-1.3) APTT (26-36) SECONDS Sodium 131 L (137-145) mmol/L Potassium 4.7 (3.4-5.1) mmol/L Chloride 88 L (98-107) mmol/L Carbon Dioxide 39 H (22-32) mmol/L BUN 15 (7-17) mg/dL Creatinine 0.83 (0.52-1.04) mg/dL Estimated GFR > 60 (>60) mL/min BUN/Creatinine Ratio 18.1 (6-22) Glucose 170 H (80-110) mg/dL Lactate (0.7-2.1) mmol/L Calcium 9.1 (8.4-10.2) mg/dL Magnesium (1.6-2.3) mg/dL Total Bilirubin 0.8 (0.2-1.3) mg/dL AST 19 (14-36) IU/L ALT 12 (<35) IU/L Alkaline Phosphatase 81 (38-126) U/L Total Creatine Kinase 54 (30-135) U/L Troponin I < 0.012 (0.01-0.034) ng/mL NT-Pro-B Natriuret Pep 186 H (<125) pg/mL Total Protein 6.2 L (6.3-8.2) g/dL Albumin 3.4 L (3.5-5.0) g/dL Globulin 2.8 (1.7-4.1) g/dL Albumin/Globulin Ratio 1.2 (1.0-2.8) Procalcitonin 0.15 (<0.5) ng/mL Chlamy pneumoniae PCR (Not Detect) Adenovirus (PCR) (Not Detect) B. pertussis DNA (PCR) (Not Detecte) B.parapertussis DNA PCR (Not Detecte) Coronavirus OC43 (PCR) (Not Detect) Coronavirus HKU1 (PCR) (Not Detect) Coronavirus 229E (PCR) (Not Detect) SARS-CoV-2 (PCR) (Not Detecte) Coronavirus NL63 (PCR) (Not Detect) Human Metapneumovir PCR (Not Detect) Influenza Type A (PCR) (Not Detect) Influenza Type B (PCR) (Not Detect) M. pneumoniae (PCR) (Not Detect) Parainfluenza 1 (PCR) (Not Detect) Parainfluenza 2 (PCR) (Not Detect) Parainfluenza 3 (PCR) (Not Detect) Parainfluenza 4 (PCR) (Not Detect) RSV (PCR) (Not Detect) Entero/Rhino (PCR) (Not Detect) 11/11/22 11/11/22 11/11/22 Range/Units 14:05 14:05 14:05 WBC (4.5-11.0) X10^3/uL RBC (4.0-5.2) X10^6/uL Hgb (12.0-16.0) g/dL Hct (36-46) % MCV (80-100) fL MCH (26-34) PG MCHC (30-36) % RDW (11.6-14.8) % Plt Count (150-400) X10^3/uL Neut % (Auto) (50-75) % Lymph % (Auto) (25-40) % [place] % (Auto) (3-14) % Eos % (Auto) (2-4) % Baso % (Auto) (0-2) % Neut # (Auto) (4265-4872) /uL Lymph # (Auto) (1577-1237) /uL [place] # (Auto) (0-900) /uL Eos # (Auto) (0-450) /uL Baso # (Auto) (0-100) /uL PT (10.1-12.7) SECONDS INR (0.9-1.3) APTT 40 H (26-36) SECONDS Sodium (137-145) mmol/L Potassium (3.4-5.1) mmol/L Chloride (98-107) mmol/L Carbon Dioxide (22-32) mmol/L BUN (7-17) mg/dL Creatinine (0.52-1.04) mg/dL Estimated GFR (>60) mL/min BUN/Creatinine Ratio (6-22) Glucose (80-110) mg/dL Lactate 0.9 (0.7-2.1) mmol/L Calcium (8.4-10.2) mg/dL Magnesium (1.6-2.3) mg/dL Total Bilirubin (0.2-1.3) mg/dL AST (14-36) IU/L ALT (<35) IU/L Alkaline Phosphatase (38-126) U/L Total Creatine Kinase (30-135) U/L Troponin I (0.01-0.034) ng/mL NT-Pro-B Natriuret Pep (<125) pg/mL Total Protein (6.3-8.2) g/dL Albumin (3.5-5.0) g/dL Globulin (1.7-4.1) g/dL Albumin/Globulin Ratio (1.0-2.8) Procalcitonin (<0.5) ng/mL Chlamy pneumoniae PCR Not detected (Not Detect) Adenovirus (PCR) Not detected (Not Detect) B. pertussis DNA (PCR) Not detected (Not Detecte) B.parapertussis DNA PCR Not detected (Not Detecte) Coronavirus OC43 (PCR) Not detected (Not Detect) Coronavirus HKU1 (PCR) Not detected (Not Detect) Coronavirus 229E (PCR) Not detected (Not Detect) SARS-CoV-2 (PCR) Not detected (Not Detecte) Coronavirus NL63 (PCR) Not detected (Not Detect) Human Metapneumovir PCR Not detected (Not Detect) Influenza Type A (PCR) Not detected (Not Detect) Influenza Type B (PCR) Not detected (Not Detect) M. pneumoniae (PCR) Not detected (Not Detect) Parainfluenza 1 (PCR) Not detected (Not Detect) Parainfluenza 2 (PCR) Not detected (Not Detect) Parainfluenza 3 (PCR) Not detected (Not Detect) Parainfluenza 4 (PCR) Not detected (Not Detect) RSV (PCR) Not detected (Not Detect) Entero/Rhino (PCR) Detected H (Not Detect) 11/11/22 Range/Units 14:05 WBC (4.5-11.0) X10^3/uL RBC (4.0-5.2) X10^6/uL Hgb (12.0-16.0) g/dL Hct (36-46) % MCV (80-100) fL MCH (26-34) PG MCHC (30-36) % RDW (11.6-14.8) % Plt Count (150-400) X10^3/uL Neut % (Auto) (50-75) % Lymph % (Auto) (25-40) % [place] % (Auto) (3-14) % Eos % (Auto) (2-4) % Baso % (Auto) (0-2) % Neut # (Auto) (8577-8760) /uL Lymph # (Auto) (3165-2709) /uL [place] # (Auto) (0-900) /uL Eos # (Auto) (0-450) /uL Baso # (Auto) (0-100) /uL PT (10.1-12.7) SECONDS INR (0.9-1.3) APTT (26-36) SECONDS Sodium (137-145) mmol/L Potassium (3.4-5.1) mmol/L Chloride (98-107) mmol/L Carbon Dioxide (22-32) mmol/L BUN (7-17) mg/dL Creatinine (0.52-1.04) mg/dL Estimated GFR (>60) mL/min BUN/Creatinine Ratio (6-22) Glucose (80-110) mg/dL Lactate (0.7-2.1) mmol/L Calcium (8.4-10.2) mg/dL Magnesium 1.7 (1.6-2.3) mg/dL Total Bilirubin (0.2-1.3) mg/dL AST (14-36) IU/L ALT (<35) IU/L Alkaline Phosphatase (38-126) U/L Total Creatine Kinase (30-135) U/L Troponin I (0.01-0.034) ng/mL NT-Pro-B Natriuret Pep (<125) pg/mL Total Protein (6.3-8.2) g/dL Albumin (3.5-5.0) g/dL Globulin (1.7-4.1) g/dL Albumin/Globulin Ratio (1.0-2.8) Procalcitonin (<0.5) ng/mL Chlamy pneumoniae PCR (Not Detect) Adenovirus (PCR) (Not Detect) B. pertussis DNA (PCR) (Not Detecte) B.parapertussis DNA PCR (Not Detecte) Coronavirus OC43 (PCR) (Not Detect) Coronavirus HKU1 (PCR) (Not Detect) Coronavirus 229E (PCR) (Not Detect) SARS-CoV-2 (PCR) (Not Detecte) Coronavirus NL63 (PCR) (Not Detect) Human Metapneumovir PCR (Not Detect) Influenza Type A (PCR) (Not Detect) Influenza Type B (PCR) (Not Detect) M. pneumoniae (PCR) (Not Detect) Parainfluenza 1 (PCR) (Not Detect) Parainfluenza 2 (PCR) (Not Detect) Parainfluenza 3 (PCR) (Not Detect) Parainfluenza 4 (PCR) (Not Detect) RSV (PCR) (Not Detect) Entero/Rhino (PCR) (Not Detect) Point of Care Testing Glucose POC 122 Imaging Data Chest x-ray: Radiologist's Impression: PROCEDURE:? XR CHEST 1V ? INDICATIONS:? cough fever ? TECHNIQUE:? One view of the chest was acquired.? ? COMPARISON:? [facility], CR, XR CHEST 1V, 07/31/2022, 11:37. ? FINDINGS:? ? Surgical changes and devices:? None.? ? Lungs and pleura:? Pulmonary vascular congestion is seen.? There is suggestion of pulmonary edema.? Ill-defined airspace opacity in left lower lung field is seen concerning for left lower lobe patchy infiltrates.? No pleural effusions or pneumothorax. ? ? Mediastinum:? Mediastinal contours appear normal.? Heart size is normal.? ? Bones and chest wall:? No suspicious bony lesions.? Overlying soft tissues a ppear unremarkable.? ? IMPRESSION:? Finding is concerning for small left lower lobe infiltrates.? Bi lateral lung aeration has improved since previous study.? Pulmonary vascular congestion and mild pulmonary edema.? No pleural effusion or pneumothorax. ? ? Dictated by: Elijah Gill M.D. on 11/11/2022 at 14:54 ? ? ECG Data Interpretation: Normal sinus rhythm rate 72 WI interval 174 QRS [address] changes no T- wave inversions MDM Narrative Medical decision making narrative: Patient is 72-year-old female chronic hypoxia and lung disease presenting today with 6 days of fevers chills increasing shortness of breath. She is found to have a left lower lobe infiltrate on her x-ray and symptoms consistent with pneumonia. Viral panel is also positive for entero/rhinovirus. She has some mild leukocytosis of 13.5 mild anemia 9.7 hematocrit 29.7 but overall stable. No significant electrolyte abnormality. Patient is requiring a little bit more oxygen than normal no more than 2 L nasal cannula. She is not given sepsis fluids because he is not hypotensive or tachycardic. She have a low-grade fever here when she arrives. Symptoms certainly concerning for viral pneumonia with probable underlying bacterial pneumonia as well. She is covered with antibiotics. Cefepime vancomycin. Dr. Monroe updated on patient's symptoms and test results. Discharge Plan Departure Patient Disposition: Admitted As Inpatient Clinical Impression: Pneumonia Admit Date/Time: 11/11/22 17:38 Admit Provider: Asad Monroe
[2022-11-11] MEDS: ACETAMINOPHEN 325 MG TABLET 975 MG PO (15:25)
[2022-11-11] MEDS: CEFEPIME 2 GM in SODIUM CHLORIDE 0.9% 100 ML IV (15:27)
[2022-11-11] MEDS: VANCOMYCIN 1,000 MG/200 ML PIGGYBACK 200 MG IV (16:05)
[2022-11-11 16:40] LABS: Adenovirus Not Detected (Not Detect); B. parapertussis Not Detected (Not Detecte); Bordetella pertussis Not Detected (Not Detecte); Chlamydophila pneumoniae Not Detected (Not Detect); Coronavirus 229E Not Detected (Not Detect); Coronavirus HKU1 Not Detected (Not Detect); Coronavirus NL 63 Not Detected (Not Detect); Coronavirus OC43 Not Detected (Not Detect); Human Metapneumovirus Not Detected (Not Detect); Human Rhinovirus/Enterovirus Detected (Not Detect); Influenza A Not Detected (Not Detect); Influenza B Not Detected (Not Detect); Mycoplasma pneumoniae Not Detected (Not Detect); Parainfluenza Virus 1 Not Detected (Not Detect); Parainfluenza Virus 2 Not Detected (Not Detect); Parainfluenza Virus 3 Not Detected (Not Detect); Parainfluenza Virus 4 Not Detected (Not Detect); Respiratory Syncytial Virus Not Detected (Not Detect); SARS- CoV-2 Not Detected (Not Detecte)
--- NOTE | 2022-11-11 16:53 | P.HP_ITS ---
History of Present Illness History of Present Illness Chief complaint: SOB Narrative: Dorene Small is a 72-year-old female with past medical history of pulmonary fibrosis on chronic 1.5 L of oxygen, asthma, CKD stage III, hypertension, hyper type 2 diabetes, GERD, dermatomyositis on chronic mycophenolate and obesity who presents with worsening dyspnea, fevers, wheezing and cough. Patient states 6 days ago she developed these symptoms which slowly improved then got worse suddenly. She reports having rhino virus and being hospitalized for 8 days back in July. Patient denies any sick contacts. Currently on her baseline oxygen. In the ED patient found to be rhinovirus positive. Mild leukocytosis of 13.5. Procalcitonin 0.15. Sputum culture collected. Patient is mildly hypotensive but otherwise vitals are stable. [facility] Medical History [place]'s disease Arthritis Asthma Chronic cough CKD (chronic kidney disease), stage III Diabetes Edema GERD (gastroesophageal reflux disease) Hiatal hernia HLD (hyperlipidemia) HTN (hypertension) Incontinence Interstitial lung disease Nasal polyp Neuropathy Pneumonia Polymyositis Sarcoidosis SCC (squamous cell carcinoma) Surgical History H/O wrist surgery History of arthroplasty of left knee History of arthroplasty of right knee Hx of bilateral cataract extraction Hx of cholecystectomy Hx of hernia repair Hx of tonsillectomy Status post correction of deviated nasal septum Social History household members: none Smoking Status: Never smoker alcohol intake: current Meds Home Medications and Allergies Home Medications Medication Instructions Recorded Confirmed Type acyclovir 400 mg tablet 400 mg PO BID 06/27/19 07/27/22 History gabapentin 300 mg capsule 600 mg PO TID 06/27/19 07/27/22 History insulin glargine 100 unit/mL (3 15 unit SUBCUT QAM 06/27/19 07/27/22 History mL) subcutaneous pen (Basaglar KwikPen U-100 Insulin) losartan 50 mg tablet 25 mg PO QAM 06/27/19 07/27/22 History metoclopramide HCl 10 mg tablet 10 mg PO TID 06/27/19 07/27/22 History montelukast 10 mg tablet 10 mg PO BEDTIME 06/27/19 07/27/22 History mycophenolate mofetil 500 mg 750 mg PO BID 06/27/19 07/27/22 History tablet (CellCept) potassium chloride 20 mEq 20 meq PO QAM 06/27/19 07/27/22 History tablet,extended release prednisone 5 mg tablet 4 mg PO QAM 06/27/19 07/27/22 History rosuvastatin 10 mg tablet (Crestor) 10 mg PO BEDTIME 06/27/19 07/27/22 History docusate sodium 100 mg capsule 100 mg PO BID #40 caps 07/12/19 07/27/22 Rx (DOK) cyclobenzaprine 10 mg tablet 10 mg PO TID PRN muscle spasm #10 10/21/20 07/27/22 Rx tabs acetaminophen 325 mg tablet 500 mg PO Q6HR PRN Pain, Mild (1-3) 10/24/20 History calcium carb-ergocalciferol (vit 1 tab PO DAILY 10/24/20 07/27/22 History D2) 600 mg calcium-200 unit tablet cetirizine 10 mg tablet 10 mg PO QPM 10/24/20 07/27/22 History folic acid 400 mcg tablet 0.4 mg PO QAM 10/24/20 07/27/22 History lactobacillus comb no.10 20 20,000 mmu cells PO QAM 10/24/20 07/27/22 History billion cell capsule (Probiotic) hydromorphone 2 mg tablet 2 mg PO Q6H PRN pain #30 tabs 10/25/20 07/27/22 Rx lidocaine 4 % topical patch 1 patch topical DAILY #15 ea 10/25/20 07/27/22 Rx Allergies Allergy/AdvReac Type Severity Reaction Status Date / Time Penicillins Allergy Severe Swelling Verified 11/11/22 14:34 of Lip/Tongue/Throat amoxicillin Allergy Intermediate Hives Verified 11/11/22 14:34 oxycodone Allergy Intermediate Hives Verified 11/11/22 14:34 Sulfa (Sulfonamide Allergy Intermediate Hives Verified 11/11/22 14:34 Antibiotics) Review of Systems Review of Systems Narrative: All other systems reviewed with the patient and are negative unless otherwise stated. Exam Vital Signs (past 8 hours): - 11/11/22 13:50 11/11/22 15:34 11/11/22 16:03 Temperature 100.3 F H 99.2 F Pulse Rate 61 87 Respiratory Rate 18 21 Blood Pressure 140/85 123/58 L Pulse Oximetry 95 96 Oxygen Delivery Method Nasal Cannula Nasal Cannula Oxygen Flow Rate 1.5 1.5 11/11/22 15:18 11/11/22 15:18 11/11/22 15:30 Temperature Pulse Rate 94 H 91 H Respiratory Rate 25 H 21 Blood Pressure 121/55 L Pulse Oximetry 95 95 Oxygen Delivery Method Oxygen Flow Rate 11/11/22 15:56 11/11/22 15:56 11/11/22 16:00 Temperature Pulse Rate 86 Respiratory Rate 23 Blood Pressure 119/56 L 116/55 L Pulse Oximetry 93 Oxygen Delivery Method Oxygen Flow Rate 11/11/22 16:00 11/11/22 16:38 Temperature 99.2 F Pulse Rate 86 Respiratory Rate 18 Blood Pressure Pulse Oximetry 91 Oxygen Delivery Method Nasal Cannula Oxygen Flow Rate 1.5 Oxygen Delivery Method Nasal Cannula Oxygen Flow Rate 1.5 Narrative Exam Narrative: GEN: no acute distress, appears fatigued HEENT: moist mucous membranes, PERRL NECK: trachea midline, no JVD CV: regular rate and rhythm, no murmurs PULM: Diffuse expiratory wheezes ABD: soft, nontender, nondistended, no organomegaly EXT: warm and well perfused with no edema NEURO: awake, alert, oriented, no focal deficits Objective Labs 11/11/22 14:05 11/11/22 14:05 Labs: Laboratory Results - last 24 hr 11/11/22 11/11/22 11/11/22 14:05 14:05 14:05 WBC 13.5 H RBC 3.28 L Hgb 9.7 L Hct 29.7 L MCV 90.7 MCH 29.6 MCHC 32.6 RDW 14.8 Plt Count 301 Neut % (Auto) 84.1 H Lymph % (Auto) 4.1 L [place] % (Auto) 10.7 Eos % (Auto) 0.7 L Baso % (Auto) 0.4 Neut # (Auto) 26411 H Lymph # (Auto) 500 L [place] # (Auto) 1400 H Eos # (Auto) 100 Baso # (Auto) 0 PT 14.2 H INR 1.2 APTT Sodium 131 L Potassium 4.7 Chloride 88 L Carbon Dioxide 39 H BUN 15 Creatinine 0.83 Estimated GFR > 60 BUN/Creatinine Ratio 18.1 Glucose 170 H Lactate Calcium 9.1 Total Bilirubin 0.8 AST 19 ALT 12 Alkaline Phosphatase 81 Total Creatine Kinase 54 Troponin I < 0.012 NT-Pro-B Natriuret Pep 186 H Total Protein 6.2 L Albumin 3.4 L Globulin 2.8 Albumin/Globulin Ratio 1.2 Procalcitonin 0.15 Chlamy pneumoniae PCR Adenovirus (PCR) B. pertussis DNA (PCR) B.parapertussis DNA PCR Coronavirus OC43 (PCR) Coronavirus HKU1 (PCR) Coronavirus 229E (PCR) SARS-CoV-2 (PCR) Coronavirus NL63 (PCR) Human Metapneumovir PCR Influenza Type A (PCR) Influenza Type B (PCR) M. pneumoniae (PCR) Parainfluenza 1 (PCR) Parainfluenza 2 (PCR) Parainfluenza 3 (PCR) Parainfluenza 4 (PCR) RSV (PCR) Entero/Rhino (PCR) 11/11/22 11/11/22 11/11/22 14:05 14:05 14:05 WBC RBC Hgb Hct MCV MCH MCHC RDW Plt Count Neut % (Auto) Lymph % (Auto) [place] % (Auto) Eos % (Auto) Baso % (Auto) Neut # (Auto) Lymph # (Auto) [place] # (Auto) Eos # (Auto) Baso # (Auto) PT INR APTT 40 H Sodium Potassium Chloride Carbon Dioxide BUN Creatinine Estimated GFR BUN/Creatinine Ratio Glucose Lactate 0.9 Calcium Total Bilirubin AST ALT Alkaline Phosphatase Total Creatine Kinase Troponin I NT-Pro-B Natriuret Pep Total Protein Albumin Globulin Albumin/Globulin Ratio Procalcitonin Chlamy pneumoniae PCR Not detected Adenovirus (PCR) Not detected B. pertussis DNA (PCR) Not detected B.parapertussis DNA PCR Not detected Coronavirus OC43 (PCR) Not detected Coronavirus HKU1 (PCR) Not detected Coronavirus 229E (PCR) Not detected SARS-CoV-2 (PCR) Not detected Coronavirus NL63 (PCR) Not detected Human Metapneumovir PCR Not detected Influenza Type A (PCR) Not detected Influenza Type B (PCR) Not detected M. pneumoniae (PCR) Not detected Parainfluenza 1 (PCR) Not detected Parainfluenza 2 (PCR) Not detected Parainfluenza 3 (PCR) Not detected Parainfluenza 4 (PCR) Not detected RSV (PCR) Not detected Entero/Rhino (PCR) Detected H Assessment & Plan Assessment & Plan narrative: # viral pneumonia with possible superimposed bacterial pneumonia -respiratory PCR positive for entero/rhinovirus -CXR with left lower lobe infiltrate. Procalcitonin 0.15 and elevated WBC of 13.5. -sputum culture pending -continue Rocephin and azithromycin for now in case of bacterial superinfection -supportive care for viral pneumonia # possible asthma exacerbation -patient has diffuse wheezes on exam -start prednisone 40 mg daily x5 days -DuoNebs as needed # chronic respiratory failure due to pulmonary fibrosis -patient currently on baseline 1.5 L of O2 -pulse ox to maintain > 92% # type 2 diabetes -continue home lantus qAM -med dose SSI -ACHS BG checks # HTN -hold home BP meds for now # HLD -continue home lipitor # dermatomyositis -hold home mycophenolate for now to prevent immunosuppression, patient okay with this Code status is full code. DVT prophylaxis with Lovenox. Proxy is brother Masood. I have reviewed home meds and used all available resources to reconcile the home meds. This patient will be admitted as inpatient and will require greater than 2 midnights of hospital time to treat pneumonia.
[2022-11-11] MEDS: BENZONATATE 100 MG CAPSULE PO (17:45)
[2022-11-11] MEDS: ENOXAPARIN 40 MG/0.4 ML SYRINGE SUBCUT (17:46)
[2022-11-11] MEDS: AZITHROMYCIN 250 MG TABLET 500 MG PO (17:46)
[2022-11-11 17:51] LABS: Magnesium 1.7 mg/dL (1.6-2.3)
[2022-11-11] MEDS: guaiFENesin ER 600 MG TAB PO ×2 (17:53→20:29)
[2022-11-11 18:16] LABS: Appearance Urine UA CLEAR; Bilirubin Urine UA NEGATIVE (NEGATIVE); Color Urine UA YELLOW; Glucose Urine UA NEGATIVE (Negative); Ketones Urine UA NEGATIVE (NEGATIVE); Leukocyte Esterase Urine UA NEGATIVE (NEGATIVE); Nitrite Urine UA NEGATIVE (Negative); Occult Blood Urine UA NEGATIVE (Negative); Protein Urine UA 1+ (Negative); Specific Gravity Urine UA 1.015 (1.000-1.035); Urobilinogen Urine UA 0.2 E.U./dL (0.2)
[2022-11-11 18:19] LABS: pH Urine UA 6.5 (4.5-8.0)
--- NOTE | 2022-11-11 18:19 | PC.NURSE ---
Pt placed on a hospital bed. Pt ate dinner
[2022-11-11 18:31] LABS: Bacteria Urine None Seen; Culture Indicated Urine Cult Not Indicated; RBC Urine None Seen (0-5/HPF); Squamous Epithelial Cell Urine 0-1 /HPF (0-5/HPF); WBC Urine None Seen (0-5/HPF)
[2022-11-11] MEDS: MAGNESIUM SULFATE 2 GM/50 ML PIGGYBACK IV (18:38)
[2022-11-11] MEDS: cefTRIAXone 2,000 MG in SODIUM CHLORIDE 0.9% 100 ML 200 MG IV (20:27)
[2022-11-11] MEDS: ATORVASTATIN 20 MG TABLET PO (20:29)
[2022-11-11] MEDS: predniSONE 20 MG TABLET 40 MG PO (20:29)
[2022-11-11] MEDS: GABAPENTIN 300 MG CAPSULE 600 MG PO (20:31)
[2022-11-11] MEDS: MONTELUKAST 10 MG TABLET PO (20:32)
[2022-11-11] MEDS: SENNOSIDES 8.6 MG TABLET PO (20:32)
[2022-11-11] MEDS: ONDANSETRON 4 MG/2 ML INJ IV (22:31)
[2022-11-12] VITALS (9 sets, daily range): BP systolic 99–137; BP diastolic 45–82; PULSE 73–95; RESP 17–20; TEMP 35.8–36.4; O2SAT 94–100
--- NOTE | 2022-11-12 03:44 | PC.NURSE ---
Admit/NOC Shift Note- Patient arrived to room via bed at 1945. Patient alert and oriented and able to make needs known to staff. Admit questions done, medications reviewed, physical assessment done, and skin check competed. Patient oriented to bed and bed controls, room, lights, phone, bathroom, menu, and call parks/tv remote. Patient agrees to call for assistance. bed alarm activated. call parks and phone within reach. will continue to monitor.
[2022-11-12 06:18] LABS: Add Manual Diff / Slide Review NO; Basophils Absolute Auto 0 /uL (0-100); Basophils Percent Auto 0.1 % (0-2); Eosinophils Absolute Auto 0 /uL (0-450); Hematocrit 30.1 % (36-46); Hemoglobin 9.7 g/dL (12.0-16.0); Lymphocytes Absolute Auto 500 /uL (1100-4500); Lymphocytes Percent Auto 5.2 % (25-40); Mean Corpuscular HGB Conc 32.2 % (30-36); Mean Corpuscular Hemoglobin 29.3 PG (26-34); Mean Corpuscular Volume 91.1 fL (80-100); Monocytes Absolute Auto 300 /uL (0-900); Monocytes Percent Auto 2.6 % (3-14); Neutrophils Absolute Auto 9400 /uL (1500-7000); Neutrophils Percent Auto 92.1 % (50-75); Platelet Count 287 X10^3/uL (150-400); Red Blood Cell Count 3.31 X10^6/uL (4.0-5.2); Red Cell Distribution Width 15.1 % (11.6-14.8); White Blood Cell Count 10.2 X10^3/uL (4.5-11.0)
[2022-11-12 06:21] LABS: BUN Creatinine Ratio 26.8 (6-22); Blood Urea Nitrogen 19 mg/dL (7-17); Calcium 8.9 mg/dL (8.4-10.2); Carbon Dioxide 37 mmol/L (22-32); Chloride 94 mmol/L (98-107); Estimated Glomerular Filt Rate > 60 mL/min (>60); Glucose 143 mg/dL (80-110); HEMOLYSIS 18 (0-50); Potassium 4.9 mmol/L (3.4-5.1); Sodium 134 mmol/L (137-145)
[2022-11-12 06:34] LABS: Procalcitonin 0.17 ng/mL (<0.5)
[2022-11-12] MEDS: predniSONE 20 MG TABLET 40 MG PO (08:35)
[2022-11-12] MEDS: guaiFENesin ER 600 MG TAB PO ×2 (08:35→20:33)
[2022-11-12] MEDS: LORATADINE 10 MG TABLET PO (08:36)
[2022-11-12] MEDS: BENZONATATE 100 MG CAPSULE PO (08:36)
[2022-11-12] MEDS: AZITHROMYCIN 250 MG TABLET 500 MG PO (08:36)
[2022-11-12] MEDS: GABAPENTIN 300 MG CAPSULE 600 MG PO ×3 (08:37→20:33)
[2022-11-12] MEDS: INSULIN GLARGINE 100 UNIT/ML 3ML PEN 15 UNIT SUBCUT (08:40)
[2022-11-12] MEDS: INSULIN LISPRO 100 UNIT/ML 3ML VIAL SUBCUT ×3 (08:40→17:08)
[2022-11-12] MEDS: ENOXAPARIN 40 MG/0.4 ML SYRINGE SUBCUT (08:58)
[2022-11-12] MEDS: ALBUTEROL/IPRATROPIUM 3 ML AMPUL INH ×3 (10:32→19:52)
--- NOTE | 2022-11-12 11:21 | CM.DANOTE ---
DCP Assessment Note: Brief Patient is a 72yo F here following shortness of breath. Likely pneumonia. PCP Donny Avendano Payer: Medicare and [facility] REVENUE RESEARCH ANALYST reviewed EMR. Per provider in rounds, patient likely will be here for two days. Patient was here in July for similar concerns and d/c'd home with [facility]. Provider reports she is on her baseline oxygen of 1.5ltrs. REVENUE RESEARCH ANALYST entered room and introduced self and role. Patient was sitting up and appeared A/Ox4. Patient struggled to participate in the conversation due to frequent coughing. Patient reports she utilizes a walker/O2/shower seat at home. She lives alone but her neighbor, Surinder ([phone]) helps her at home. Neighbor Surinder drives for her and will pick her up from the hospital and drive her home. Patient is open to [facility] if necessary but she is unsure if she will need it or not. Patient reports she has no other caregivers at home. Plan: patient will d/c home when medically stable. Open to [facility] if needed. Patient will transport with neighbor. CM team will continue to follow as needed. TIAN Henry Discharge Planning/Care Management CM Discharge Assessment Start: 11/12/22 11:18 Freq: Status: Active Protocol: Document 11/12/22 11:18 (Rec: 11/12/22 11:20 [id number]) Discharge Planning Assessment Assigned [employer] TIAN Lewis DPOA/Assigned Designee Name Michael Small (brother) Contact Information [phone] Advance Directives? No Advance Directives on File No History Provided By Patient,Medical Record Prior Living Arrangements Mobile home Household Members none Type of transporation used prior to Relies on Others admit Comment Neighbor Surinder drives Independent with ADL's Yes Is patient alert and oriented? Yes Needs Assistance With Home Chores / Shopping Comment patient reports neighbor helps her at home DME Already Rented / Owned FWW / Walker,Oxygen Comment Walk in shower, has shower chair. Patient/Family Preference Home with Home Health Comment open to [facility] again if determined necessary Barriers to Discharge No Discharge Plan Home Transportation Arrangement Neighbor to transport Referrals Initiated None needed Additional Comment Possible [facility] on dc, depends, watch for need If patient plan is home with home health Yes : Has signed face to face form been completed? Whiteboard Updated in Patient Room with Yes name and ext. # of [employer] Review Status In Process Next Review Type Continued Stay Review
--- NOTE | 2022-11-12 11:46 | P.PN_ITS ---
Subjective Subjective Interval history: Patient says her breathing is improved today, but cough is still very harsh. Still on her baseline O2. Exam Vital Signs (past 8 hours): - 11/12/22 04:44 11/12/22 08:45 11/12/22 08:00 Temperature 96.5 F L 96.5 F L Pulse Rate 80 95 H Respiratory Rate 18 18 Blood Pressure 128/50 L 137/82 Pulse Oximetry 96 98 94 Oxygen Delivery Method Nasal Cannula Oxygen Flow Rate 0 2 11/12/22 10:36 Temperature Pulse Rate Respiratory Rate Blood Pressure Pulse Oximetry 99 Oxygen Delivery Method Nasal Cannula Oxygen Flow Rate 2 Fraction of Inspired Oxygen 28 SaO2/FiO2 Ratio 346 Oxygen Delivery Method Nasal Cannula Oxygen Flow Rate 2 Narrative Exam Narrative: GEN: no acute distress, appears fatigued HEENT: moist mucous membranes, PERRL NECK: trachea midline, no JVD CV: regular rate and rhythm, no murmurs PULM: Diffuse expiratory wheezes ABD: soft, nontender, nondistended, no organomegaly EXT: warm and well perfused with no edema NEURO: awake, alert, oriented, no focal deficits Objective Labs 11/12/22 05:50 11/12/22 05:50 Labs: Laboratory Results - last 24 hr 11/11/22 11/11/22 11/11/22 14:05 14:05 14:05 WBC 13.5 H RBC 3.28 L Hgb 9.7 L Hct 29.7 L MCV 90.7 MCH 29.6 MCHC 32.6 RDW 14.8 Plt Count 301 Neut % (Auto) 84.1 H Lymph % (Auto) 4.1 L [place] % (Auto) 10.7 Eos % (Auto) 0.7 L Baso % (Auto) 0.4 Neut # (Auto) 58308 H Lymph # (Auto) 500 L [place] # (Auto) 1400 H Eos # (Auto) 100 Baso # (Auto) 0 PT 14.2 H INR 1.2 APTT Sodium 131 L Potassium 4.7 Chloride 88 L Carbon Dioxide 39 H BUN 15 Creatinine 0.83 Estimated GFR > 60 BUN/Creatinine Ratio 18.1 Glucose 170 H Lactate Calcium 9.1 Magnesium Total Bilirubin 0.8 AST 19 ALT 12 Alkaline Phosphatase 81 Total Creatine Kinase 54 Troponin I < 0.012 NT-Pro-B Natriuret Pep 186 H Total Protein 6.2 L Albumin 3.4 L Globulin 2.8 Albumin/Globulin Ratio 1.2 Procalcitonin 0.15 Urine Color Urine Appearance Urine pH Ur Specific [place] Urine Protein Urine Glucose (UA) Urine Ketones Urine Occult Blood Urine Nitrate Urine Bilirubin Urine Urobilinogen Ur Leukocyte Esterase Urine RBC Urine WBC Ur Squamous Epith Cells Urine Bacteria Ur Culture Indicated? Chlamy pneumoniae PCR Adenovirus (PCR) B. pertussis DNA (PCR) B.parapertussis DNA PCR Coronavirus OC43 (PCR) Coronavirus HKU1 (PCR) Coronavirus 229E (PCR) SARS-CoV-2 (PCR) Coronavirus NL63 (PCR) Human Metapneumovir PCR Influenza Type A (PCR) Influenza Type B (PCR) M. pneumoniae (PCR) Parainfluenza 1 (PCR) Parainfluenza 2 (PCR) Parainfluenza 3 (PCR) Parainfluenza 4 (PCR) RSV (PCR) Entero/Rhino (PCR) 11/11/22 11/11/22 11/11/22 14:05 14:05 14:05 WBC RBC Hgb Hct MCV MCH MCHC RDW Plt Count Neut % (Auto) Lymph % (Auto) [place] % (Auto) Eos % (Auto) Baso % (Auto) Neut # (Auto) Lymph # (Auto) [place] # (Auto) Eos # (Auto) Baso # (Auto) PT INR APTT 40 H Sodium Potassium Chloride Carbon Dioxide BUN Creatinine Estimated GFR BUN/Creatinine Ratio Glucose Lactate 0.9 Calcium Magnesium Total Bilirubin AST ALT Alkaline Phosphatase Total Creatine Kinase Troponin I NT-Pro-B Natriuret Pep Total Protein Albumin Globulin Albumin/Globulin Ratio Procalcitonin Urine Color Urine Appearance Urine pH Ur Specific [place] Urine Protein Urine Glucose (UA) Urine Ketones Urine Occult Blood Urine Nitrate Urine Bilirubin Urine Urobilinogen Ur Leukocyte Esterase Urine RBC Urine WBC Ur Squamous Epith Cells Urine Bacteria Ur Culture Indicated? Chlamy pneumoniae PCR Not detected Adenovirus (PCR) Not detected B. pertussis DNA (PCR) Not detected B.parapertussis DNA PCR Not detected Coronavirus OC43 (PCR) Not detected Coronavirus HKU1 (PCR) Not detected Coronavirus 229E (PCR) Not detected SARS-CoV-2 (PCR) Not detected Coronavirus NL63 (PCR) Not detected Human Metapneumovir PCR Not detected Influenza Type A (PCR) Not detected Influenza Type B (PCR) Not detected M. pneumoniae (PCR) Not detected Parainfluenza 1 (PCR) Not detected Parainfluenza 2 (PCR) Not detected Parainfluenza 3 (PCR) Not detected Parainfluenza 4 (PCR) Not detected RSV (PCR) Not detected Entero/Rhino (PCR) Detected H 11/11/22 11/11/22 11/12/22 14:05 17:55 05:50 WBC 10.2 RBC 3.31 L Hgb 9.7 L Hct 30.1 L MCV 91.1 MCH 29.3 MCHC 32.2 RDW 15.1 H Plt Count 287 Neut % (Auto) 92.1 H Lymph % (Auto) 5.2 L [place] % (Auto) 2.6 L Eos % (Auto) 0.0 L Baso % (Auto) 0.1 Neut # (Auto) 9400 H Lymph # (Auto) 500 L [place] # (Auto) 300 Eos # (Auto) 0 Baso # (Auto) 0 PT INR APTT Sodium Potassium Chloride Carbon Dioxide BUN Creatinine Estimated GFR BUN/Creatinine Ratio Glucose Lactate Calcium Magnesium 1.7 Total Bilirubin AST ALT Alkaline Phosphatase Total Creatine Kinase Troponin I NT-Pro-B Natriuret Pep Total Protein Albumin Globulin Albumin/Globulin Ratio Procalcitonin Urine Color Yellow Urine Appearance Clear Urine pH 6.5 Ur Specific [place] 1.015 Urine Protein 1+ H Urine Glucose (UA) Negative Urine Ketones Negative Urine Occult Blood Negative Urine Nitrate Negative Urine Bilirubin Negative Urine Urobilinogen 0.2 Ur Leukocyte Esterase Negative Urine RBC None seen Urine WBC None seen Ur Squamous Epith Cells 0-1 /hpf Urine Bacteria None seen Ur Culture Indicated? Cult not indicated Chlamy pneumoniae PCR Adenovirus (PCR) B. pertussis DNA (PCR) B.parapertussis DNA PCR Coronavirus OC43 (PCR) Coronavirus HKU1 (PCR) Coronavirus 229E (PCR) SARS-CoV-2 (PCR) Coronavirus NL63 (PCR) Human Metapneumovir PCR Influenza Type A (PCR) Influenza Type B (PCR) M. pneumoniae (PCR) Parainfluenza 1 (PCR) Parainfluenza 2 (PCR) Parainfluenza 3 (PCR) Parainfluenza 4 (PCR) RSV (PCR) Entero/Rhino (PCR) 11/12/22 05:50 WBC RBC Hgb Hct MCV MCH MCHC RDW Plt Count Neut % (Auto) Lymph % (Auto) [place] % (Auto) Eos % (Auto) Baso % (Auto) Neut # (Auto) Lymph # (Auto) [place] # (Auto) Eos # (Auto) Baso # (Auto) PT INR APTT Sodium 134 L Potassium 4.9 Chloride 94 L Carbon Dioxide 37 H BUN 19 H Creatinine 0.71 Estimated GFR > 60 BUN/Creatinine Ratio 26.8 H Glucose 143 H Lactate Calcium 8.9 Magnesium Total Bilirubin AST ALT Alkaline Phosphatase Total Creatine Kinase Troponin I NT-Pro-B Natriuret Pep Total Protein Albumin Globulin Albumin/Globulin Ratio Procalcitonin 0.17 Urine Color Urine Appearance Urine pH Ur Specific [place] Urine Protein Urine Glucose (UA) Urine Ketones Urine Occult Blood Urine Nitrate Urine Bilirubin Urine Urobilinogen Ur Leukocyte Esterase Urine RBC Urine WBC Ur Squamous Epith Cells Urine Bacteria Ur Culture Indicated? Chlamy pneumoniae PCR Adenovirus (PCR) B. pertussis DNA (PCR) B.parapertussis DNA PCR Coronavirus OC43 (PCR) Coronavirus HKU1 (PCR) Coronavirus 229E (PCR) SARS-CoV-2 (PCR) Coronavirus NL63 (PCR) Human Metapneumovir PCR Influenza Type A (PCR) Influenza Type B (PCR) M. pneumoniae (PCR) Parainfluenza 1 (PCR) Parainfluenza 2 (PCR) Parainfluenza 3 (PCR) Parainfluenza 4 (PCR) RSV (PCR) Entero/Rhino (PCR) PFSH Medical History [place]'s disease Arthritis Asthma Chronic cough CKD (chronic kidney disease), stage III Diabetes Edema GERD (gastroesophageal reflux disease) Hiatal hernia HLD (hyperlipidemia) HTN (hypertension) Incontinence Interstitial lung disease Nasal polyp Neuropathy Pneumonia Polymyositis Sarcoidosis SCC (squamous cell carcinoma) Surgical History H/O wrist surgery History of arthroplasty of left knee History of arthroplasty of right knee Hx of bilateral cataract extraction Hx of cholecystectomy Hx of hernia repair Hx of tonsillectomy Status post correction of deviated nasal septum Social History household members: none Smoking Status: Never smoker alcohol intake: never Assessment & Plan Assessment & Plan narrative: # viral pneumonia with possible superimposed bacterial pneumonia -respiratory PCR positive for entero/rhinovirus -CXR with left lower lobe infiltrate. Procalcitonin 0.15 and elevated WBC of 13.5. -sputum culture with very early growth -continue Rocephin and azithromycin for now in case of bacterial superinfection -supportive care for viral pneumonia # possible asthma exacerbation -patient has diffuse wheezes on exam -start prednisone 40 mg daily x5 days -DuoNebs as needed # chronic respiratory failure due to pulmonary fibrosis -patient currently on baseline 1.5 L of O2 -pulse ox to maintain > 92% # type 2 diabetes -continue home lantus qAM -med dose SSI -ACHS BG checks # HTN -hold home BP meds for now as BP borderline low # HLD -continue home lipitor # dermatomyositis -hold home mycophenolate for now to prevent immunosuppression, patient okay with this Code status is full code. DVT prophylaxis with Lovenox. Proxy is brother Masood. Dispo: Home in 1-2 days. Quality VTE Deep Vein Thrombosis/Pulmonary Embolism Present on Admission: No
[2022-11-12] MEDS: ATORVASTATIN 20 MG TABLET PO (20:33)
[2022-11-12] MEDS: MONTELUKAST 10 MG TABLET PO (20:33)
[2022-11-12] MEDS: SODIUM CHLORIDE 0.9% 250 ML 21 ML IV (20:34)
[2022-11-12] MEDS: SODIUM CHLORIDE 0.9% FLUSH 10 ML IV (20:38)
[2022-11-12] MEDS: cefTRIAXone 2,000 MG in SODIUM CHLORIDE 0.9% 100 ML 200 MG IV (20:38)
[2022-11-13] VITALS (8 sets, daily range): BP systolic 102–134; BP diastolic 46–66; PULSE 65–83; RESP 18–21; TEMP 35.4–36.4; O2SAT 96–99
[2022-11-13] MEDS: ACETAMINOPHEN 325 MG TABLET 650 MG PO ×6 (00:33→20:30)
[2022-11-13] MEDS: BENZONATATE 100 MG CAPSULE PO ×3 (00:33→20:31)
[2022-11-13] MEDS: ALBUTEROL/IPRATROPIUM 3 ML AMPUL INH ×3 (06:07→20:31)
[2022-11-13 06:31] LABS: Add Manual Diff / Slide Review NO; Basophils Absolute Auto 0 /uL (0-100); Basophils Percent Auto 0.4 % (0-2); Eosinophils Absolute Auto 0 /uL (0-450); Eosinophils Percent Auto 0.1 % (2-4); Hematocrit 28.4 % (36-46); Hemoglobin 9.4 g/dL (12.0-16.0); Lymphocytes Absolute Auto 1200 /uL (1100-4500); Lymphocytes Percent Auto 11.3 % (25-40); Mean Corpuscular HGB Conc 33.1 % (30-36); Mean Corpuscular Hemoglobin 29.7 PG (26-34); Monocytes Absolute Auto 900 /uL (0-900); Monocytes Percent Auto 8.8 % (3-14); Neutrophils Absolute Auto 8200 /uL (1500-7000); Neutrophils Percent Auto 79.4 % (50-75); Platelet Count 323 X10^3/uL (150-400); Red Blood Cell Count 3.16 X10^6/uL (4.0-5.2); Red Cell Distribution Width 14.5 % (11.6-14.8); White Blood Cell Count 10.3 X10^3/uL (4.5-11.0)
[2022-11-13 06:35] LABS: BUN Creatinine Ratio 29.3 (6-22); Blood Urea Nitrogen 22 mg/dL (7-17); Calcium 8.3 mg/dL (8.4-10.2); Carbon Dioxide 38 mmol/L (22-32); Chloride 90 mmol/L (98-107); Estimated Glomerular Filt Rate > 60 mL/min (>60); Glucose 123 mg/dL (80-110); HEMOLYSIS < 15 (0-50); Potassium 3.9 mmol/L (3.4-5.1); Sodium 130 mmol/L (137-145)
[2022-11-13] MEDS: SODIUM CHLORIDE 0.9% 1,000 ML 100 ML IV (08:46)
[2022-11-13] MEDS: AZITHROMYCIN 250 MG TABLET 500 MG PO (08:48)
[2022-11-13] MEDS: GABAPENTIN 300 MG CAPSULE 600 MG PO ×3 (08:48→20:31)
[2022-11-13] MEDS: guaiFENesin ER 600 MG TAB PO ×2 (08:49→20:30)
[2022-11-13] MEDS: LORATADINE 10 MG TABLET PO (08:49)
[2022-11-13] MEDS: predniSONE 20 MG TABLET 40 MG PO (08:50)
[2022-11-13] MEDS: ENOXAPARIN 40 MG/0.4 ML SYRINGE SUBCUT (08:52)
[2022-11-13] MEDS: INSULIN GLARGINE 100 UNIT/ML 3ML PEN 15 UNIT SUBCUT (09:54)
[2022-11-13] MEDS: SODIUM CHLORIDE 0.9% FLUSH 10 ML IV ×2 (09:55→20:40)
[2022-11-13] MEDS: INSULIN LISPRO 100 UNIT/ML 3ML VIAL SUBCUT ×2 (12:14→16:25)
--- NOTE | 2022-11-13 13:52 | PM.PN.1 ---
Subjective Subjective Interval history: Patient feeling a little better, but not quite ready to go home. She thinks she'll feel well enough tomorrow. No other complaints. Exam Vital Signs (past 8 hours): - 11/13/22 06:07 11/13/22 08:00 11/13/22 07:00 Temperature 95.8 F L Pulse Rate 74 74 Respiratory Rate 18 18 Blood Pressure 112/46 L Pulse Oximetry 96 98 Oxygen Delivery Method Nasal Cannula Nasal Cannula Oxygen Flow Rate 2 2 Fraction of Inspired Oxygen 28 11/13/22 12:40 11/13/22 12:00 Temperature 96.8 F L Pulse Rate 69 83 Respiratory Rate 20 18 Blood Pressure 102/55 L Pulse Oximetry 98 98 Oxygen Delivery Method Nasal Cannula Oxygen Flow Rate 1 2 Fraction of Inspired Oxygen 24 Fraction of Inspired Oxygen 24 SaO2/FiO2 Ratio 408 Oxygen Delivery Method Nasal Cannula Oxygen Flow Rate 1 Narrative Exam Narrative: GEN: no acute distress, appears fatigued HEENT: moist mucous membranes, PERRL NECK: trachea midline, no JVD CV: regular rate and rhythm, no murmurs PULM: Diffuse expiratory wheezes ABD: soft, nontender, nondistended, no organomegaly EXT: warm and well perfused with no edema NEURO: awake, alert, oriented, no focal deficits Objective Labs 11/13/22 05:40 11/13/22 05:40 Labs: Laboratory Results - last 24 hr 11/13/22 11/13/22 05:40 05:40 WBC 10.3 RBC 3.16 L Hgb 9.4 L Hct 28.4 L MCV 90.0 MCH 29.7 MCHC 33.1 RDW 14.5 Plt Count 323 Neut % (Auto) 79.4 H Lymph % (Auto) 11.3 L [place] % (Auto) 8.8 Eos % (Auto) 0.1 L Baso % (Auto) 0.4 Neut # (Auto) 8200 H Lymph # (Auto) 1200 [place] # (Auto) 900 Eos # (Auto) 0 Baso # (Auto) 0 Sodium 130 L Potassium 3.9 Chloride 90 L Carbon Dioxide 38 H BUN 22 H Creatinine 0.75 Estimated GFR > 60 BUN/Creatinine Ratio 29.3 H Glucose 123 H Calcium 8.3 L PFSH Medical History [place]'s disease Arthritis Asthma Chronic cough CKD (chronic kidney disease), stage III Diabetes Edema GERD (gastroesophageal reflux disease) Hiatal hernia HLD (hyperlipidemia) HTN (hypertension) Incontinence Interstitial lung disease Nasal polyp Neuropathy Pneumonia Polymyositis Sarcoidosis SCC (squamous cell carcinoma) Surgical History H/O wrist surgery History of arthroplasty of left knee History of arthroplasty of right knee Hx of bilateral cataract extraction Hx of cholecystectomy Hx of hernia repair Hx of tonsillectomy Status post correction of deviated nasal septum Social History household members: none Smoking Status: Never smoker alcohol intake: never Assessment & Plan Assessment & Plan narrative: # viral pneumonia with possible superimposed bacterial pneumonia -respiratory PCR positive for entero/rhinovirus -CXR with left lower lobe infiltrate. Procalcitonin 0.15 and elevated WBC of 13.5. -sputum culture with very early growth -continue Rocephin and azithromycin for now in case of bacterial superinfection -supportive care for viral pneumonia # possible asthma exacerbation -patient has diffuse wheezes on exam -started prednisone 40 mg daily x5 days -DuoNebs as needed # hyponatremia -Na 130 -start IVF # chronic respiratory failure due to pulmonary fibrosis -patient currently on baseline 1.5 L of O2 -pulse ox to maintain > 92% # type 2 diabetes -continue home lantus qAM -med dose SSI -ACHS BG checks # HTN -hold home BP meds for now as BP borderline low # HLD -continue home lipitor # dermatomyositis -hold home mycophenolate for now to prevent immunosuppression, patient okay with this Code status is full code. DVT prophylaxis with Lovenox. Proxy is brother Masood. Dispo: Home on 11/14. Patient doesn't think she needs HH. Quality VTE Deep Vein Thrombosis/Pulmonary Embolism Present on Admission: No
[2022-11-13] MEDS: cefTRIAXone 2,000 MG in SODIUM CHLORIDE 0.9% 100 ML 200 MG IV (20:29)
[2022-11-13] MEDS: MONTELUKAST 10 MG TABLET PO (20:30)
[2022-11-13] MEDS: MELATONIN 3 MG TABLET 6 MG PO (20:30)
[2022-11-13] MEDS: ATORVASTATIN 20 MG TABLET PO (20:31)
[2022-11-14] MEDS: BENZONATATE 100 MG CAPSULE PO ×2 (01:03→08:44)
[2022-11-14] MEDS: ACETAMINOPHEN 325 MG TABLET 650 MG PO ×2 (01:03→04:50)
[2022-11-14 04:25] VITALS: BP 119/52; PULSE 65; RESP 18; TEMP 36; O2SAT 97
[2022-11-14 05:34] LABS: Add Manual Diff / Slide Review NO; Basophils Absolute Auto 0 /uL (0-100); Basophils Percent Auto 0.1 % (0-2); Eosinophils Absolute Auto 0 /uL (0-450); Eosinophils Percent Auto 0.1 % (2-4); Hematocrit 28.1 % (36-46); Hemoglobin 9.3 g/dL (12.0-16.0); Lymphocytes Absolute Auto 1200 /uL (1100-4500); Lymphocytes Percent Auto 13.2 % (25-40); Mean Corpuscular HGB Conc 32.9 % (30-36); Mean Corpuscular Hemoglobin 29.9 PG (26-34); Mean Corpuscular Volume 90.9 fL (80-100); Monocytes Absolute Auto 900 /uL (0-900); Monocytes Percent Auto 10.3 % (3-14); Neutrophils Absolute Auto 6700 /uL (1500-7000); Neutrophils Percent Auto 76.3 % (50-75); Platelet Count 335 X10^3/uL (150-400); Red Blood Cell Count 3.09 X10^6/uL (4.0-5.2); Red Cell Distribution Width 14.5 % (11.6-14.8); White Blood Cell Count 8.8 X10^3/uL (4.5-11.0)
[2022-11-14 05:38] LABS: BUN Creatinine Ratio 22.7 (6-22); Blood Urea Nitrogen 15 mg/dL (7-17); Calcium 8.5 mg/dL (8.4-10.2); Carbon Dioxide 38 mmol/L (22-32); Chloride 97 mmol/L (98-107); Estimated Glomerular Filt Rate > 60 mL/min (>60); Glucose 98 mg/dL (80-110); HEMOLYSIS < 15 (0-50); Sodium 137 mmol/L (137-145)
[2022-11-14] MEDS: ALBUTEROL/IPRATROPIUM 3 ML AMPUL INH (07:44)
[2022-11-14 07:47] VITALS: O2SAT 98
[2022-11-14 08:00] VITALS: BP 121/49; PULSE 79; RESP 18; TEMP 35.5; O2SAT 98
[2022-11-14] MEDS: GABAPENTIN 300 MG CAPSULE 600 MG PO (08:43)
[2022-11-14] MEDS: LORATADINE 10 MG TABLET PO (08:43)
[2022-11-14] MEDS: ENOXAPARIN 40 MG/0.4 ML SYRINGE SUBCUT (08:43)
[2022-11-14] MEDS: predniSONE 20 MG TABLET 40 MG PO (08:43)
[2022-11-14] MEDS: guaiFENesin ER 600 MG TAB PO (08:43)
[2022-11-14] MEDS: INSULIN GLARGINE 100 UNIT/ML 3ML PEN 15 UNIT SUBCUT (08:44)
--- NOTE | 2022-11-14 09:46 | P.DS_ITS ---
History of Present Illness History of Present Illness Chief complaint: SOB Narrative: Dorene Small is a 72-year-old female with past medical history of pulmonary fibrosis on chronic 1.5 L of oxygen, asthma, CKD stage III, hypertension, hyper type 2 diabetes, GERD, dermatomyositis on chronic mycophenolate and obesity who presents with worsening dyspnea, fevers, wheezing and cough. Patient states 6 days ago she developed these symptoms which slowly improved then got worse suddenly. She reports having rhino virus and being hospitalized for 8 days back in July. Patient denies any sick contacts. Currently on her baseline oxygen. In the ED patient found to be rhinovirus positive. Mild leukocytosis of 13.5. Procalcitonin 0.15. Sputum culture collected. Patient is mildly hypotensive but otherwise vitals are stable. Discharge Providers Provider Date of admission: 11/11/22 17:38 Discharge Date: 11/14/22 Primary care physician: Donny Avendano MD Discharge provider: Asad Monroe DO Summary Hospital Course Discharge Diagnosis: # viral pneumonia with possible superimposed bacterial pneumonia -respiratory PCR positive for entero/rhinovirus -CXR with left lower lobe infiltrate.? Procalcitonin 0.15 and elevated WBC of 13.5. -sputum culture with normal tacho -continue Rocephin and azithromycin for now in case of bacterial superinfection -supportive care for viral pneumonia # possible asthma exacerbation -patient has diffuse wheezes on exam -started prednisone 40 mg daily x5 days -DuoNebs as needed # hyponatremia, resolved -Na 130 -improved to 137 with IVF # chronic respiratory failure due to pulmonary fibrosis -patient currently on baseline 1.5 L of O2 -pulse ox to maintain > 92% # type 2 diabetes -continue home lantus qAM -med dose SSI -ACHS BG checks # HTN -hold home BP meds for now as BP borderline low # HLD -continue home lipitor # dermatomyositis -hold home mycophenolate for now to prevent immunosuppression, patient okay with this Hospital Course: Admitted for worsening shortness of breath, cough and found to have left lower lobe infiltrate and leukocytosis. Tested positive for rhino virus. Was placed on antibiotics for community-acquired pneumonia in case of bacterial superinfection. Had diffuse wheezes consistent with possible asthma exacerbation so placed on p.o. prednisone and duonebs. She improved and was discharged home on p.o. 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 She was also given a few more days of p.o. prednisone. Time Spent with Patient Time spent: Greater than 30 minutes Exam Vital Signs (past 8 hours): - 11/14/22 04:25 11/14/22 07:47 11/14/22 08:00 Temperature 96.8 F L 95.9 F L Pulse Rate 65 79 Respiratory Rate 18 18 Blood Pressure 119/52 L 121/49 L Pulse Oximetry 97 98 98 Oxygen Flow Rate 2 1 1.5 Fraction of Inspired Oxygen 24 SaO2/FiO2 Ratio 408 Oxygen Delivery Method Nasal Cannula Oxygen Flow Rate 1.5 Narrative Exam Narrative: GEN: no acute distress, appears fatigued HEENT: moist mucous membranes, PERRL NECK: trachea midline, no JVD CV: regular rate and rhythm, no murmurs PULM: Diffuse expiratory wheezes ABD: soft, nontender, nondistended, no organomegaly EXT: warm and well perfused with no edema NEURO: awake, alert, oriented, no focal deficits Objective Labs 11/14/22 04:50 11/14/22 04:50 Labs: Laboratory Results - last 24 hr 11/14/22 11/14/22 04:50 04:50 WBC 8.8 RBC 3.09 L Hgb 9.3 L Hct 28.1 L MCV 90.9 MCH 29.9 MCHC 32.9 RDW 14.5 Plt Count 335 Neut % (Auto) 76.3 H Lymph % (Auto) 13.2 L [place] % (Auto) 10.3 Eos % (Auto) 0.1 L Baso % (Auto) 0.1 Neut # (Auto) 6700 Lymph # (Auto) 1200 [place] # (Auto) 900 Eos # (Auto) 0 Baso # (Auto) 0 Sodium 137 Potassium 4.0 Chloride 97 L Carbon Dioxide 38 H BUN 15 Creatinine 0.66 Estimated GFR > 60 BUN/Creatinine Ratio 22.7 H Glucose 98 Calcium 8.5 PFSH Medical History Glynn's disease Arthritis Asthma Chronic cough CKD (chronic kidney disease), stage III Diabetes Edema GERD (gastroesophageal reflux disease) Hiatal hernia HLD (hyperlipidemia) HTN (hypertension) Incontinence Interstitial lung disease Nasal polyp Neuropathy Pneumonia Polymyositis Sarcoidosis SCC (squamous cell carcinoma) Surgical History H/O wrist surgery History of arthroplasty of left knee History of arthroplasty of right knee Hx of bilateral cataract extraction Hx of cholecystectomy Hx of hernia repair Hx of tonsillectomy Status post correction of deviated nasal septum Social History household members: none Smoking Status: Never smoker alcohol intake: never Discharge Plan Discharge Plan Patient Disposition: Home Provider Discharge Comment: You were admitted for rhino virus and pneumonia done IV antibiotics and steroids. He will now finish out oral steroids and oral antibiotics at home. Discharge orders & Medications Prescriptions: New prednisone 20 mg Tablet 40 mg PO DAILY 1 Days Qty: 2 0RF Rx Instructions: take on 11/15 doxycycline hyclate 100 mg tablet 100 mg PO BID 21 Days Qty: 42 0RF Rx Instructions: start on 11/15 Continued cyclobenzaprine 10 mg tablet 10 mg PO TID PRN (Reason: muscle spasm) Qty: 10 0RF acetaminophen 325 mg tablet 500 mg PO Q6HR PRN (Reason: Pain, Mild (1-3)) folic acid 400 mcg Tablet 0.4 mg PO QAM calcium carbonate-vitamin D2 600 mg calcium- 200 unit Tablet 1 tab PO DAILY Probiotic 20 billion cell Capsule 20,000 mmu cells PO QAM prednisone 1 mg tablet 4 mg PO DAILY losartan 50 mg Tablet 25 mg PO QAM acyclovir 400 mg Tablet 400 mg PO BID mycophenolate mofetil [CellCept] 500 mg Tablet 750 mg PO BID gabapentin 300 mg Capsule 600 mg PO TID montelukast 10 mg Tablet 10 mg PO BEDTIME rosuvastatin [Crestor] 10 mg Tablet 10 mg PO BEDTIME insulin glargine [Basaglar KwikPen U-100 Insulin] 100 unit/mL (3 mL) Insulin Pen 12 unit SUBCUT QAM potassium chloride 20 mEq Tablet Extended Release 20 meq PO QAM Follow up/Referrals: Donny Avendano MD [Primary Care Provider] - 2 Weeks Visit Report/Discharge Packet Stand Alone Forms: Patient Portal/API, Stroke Signs & Symptoms Discharge Data Primary Care Provider: Donny Avendano Discharges patient from system. Discharge Date/Time: 11/14/22 13:00 Quality VTE Deep Vein Thrombosis/Pulmonary Embolism Present on Admission: No
[2022-11-14] MEDS: SODIUM CHLORIDE 0.9% FLUSH 10 ML IV (11:00)
[2022-11-14] MEDS: cefTRIAXone 2,000 MG in SODIUM CHLORIDE 0.9% 100 ML 200 MG IV (11:00)
--- NOTE | 2022-11-14 14:17 | PC.NURSE ---
Pt is A&OX4. VSS, afebrile on 1.5 LNC (per baseline home 02). She has consistent cough, but continuing to feel better. Po intake is better today. She is medically cleared for discharge home today with her friend Surinder. RN notified Surinder on Cellphone number on contact list, and he states he will arrive shortly after patient lunch to transport patient home. She verbalizes understanding of medications, and asks appropriate questions. She is escorted to lobby via w/ch to ER exit with all of her belongings at approximately 1300 for discharge home with friend Surinder in a private vehicle.
== END 2022-11-14 13:00 | disposition home or self-care (01) | DRG 194 ==
LOC: ED 14:15 → AC 17:39
PROVIDERS: Admitting Provider Student in an Organized Health Care Education/Training Program; Emergency Provider Emergency Medicine; PCP Family Medicine; Referring Provider Emergency Medicine; Visit Provider Student in an Organized Health Care Education/Training Program
DX: J12.9 Viral pneumonia, unspecified (principal); E87.1 Hypo-osmolality and hyponatremia; J45.901 Unspecified asthma with (acute) exacerbation; J96.10 Chronic respiratory failure, unspecified whether with hypoxia or hypercapnia; J84.10 Pulmonary fibrosis, unspecified; Z99.81 Dependence on supplemental oxygen; E11.9 Type 2 diabetes mellitus without complications; Z79.4 Long term (current) use of insulin; I10 Essential (primary) hypertension; E78.5 Hyperlipidemia, unspecified; Z79.69 Long term (current) use of other immunomodulators and immunosuppressants; J15.9 Unspecified bacterial pneumonia; B97.89 Other viral agents as the cause of diseases classified elsewhere
CPT/HCPCS: 36415; 71045; 80048; 80053; 81001; 82550; 82962; 83605; 83735; 83880; 84145; 84484; 85025; 85610; 85730; 87040; 87070; 87205; 87633; 93005; 94640; 94760; 94762; 96365; 96367; 99285; J0692; J0696; J1650; J1815; J2405; J3475

== ENCOUNTER → 2023-05-27 14:16 | Outpatient (CLI) | payer MEDICARE, BC, SELFPAY ==
[2022-11-11 18:41] VITALS: BMI 30.2
--- NOTE | 2023-05-27 14:19 | DI.RAD.S_ITS ---
PROCEDURE: XR THORACIC SPINE 3V INDICATIONS: back pain; compression fracture new and old TECHNIQUE: 3 views of the thoracic spine were acquired. COMPARISON: [facility], CR, XR THORACIC SPINE 3V, 11/03/2020, 9:04. FINDINGS: Bones: No fractures or dislocations. No suspicious bony lesions. 12 pairs of ribs are noted, and appear intact where visualized. Diffuse osteopenia. Flowing bridging anterior osteophytes. Soft tissues: No paravertebral stripe thickening. IMPRESSION: Degenerative change. Osteopenia. No acute bony abnormality. Dictated by: Timmy Newman M.D. on 05/27/2023 at 18:56 Approved by: Timmy Newman M.D. on 05/27/2023 at 18:56
== END ==
PROVIDERS: PCP Family Medicine; Referring Provider Internal Medicine; Visit Provider Internal Medicine
DX: M47.814 Spondylosis without myelopathy or radiculopathy, thoracic region (principal); M85.88 Other specified disorders of bone density and structure, other site; J47.9 Bronchiectasis, uncomplicated; R09.02 Hypoxemia; J45.50 Severe persistent asthma, uncomplicated
CPT/HCPCS: 72072; 99214

== ENCOUNTER → 2023-07-02 09:34 | Outpatient (CLI) | payer MEDICARE, BC, SELFPAY ==
[2022-11-11 18:41] VITALS: BMI 30.2
--- NOTE | 2023-07-02 09:36 | DI.CT.S_ITS ---
PROCEDURE: CT LUMBAR SPINE WO CON INDICATIONS: Spondylolisthesis, lumbar region TECHNIQUE: Noncontrast 3 mm thick sections acquired from the T12 level to the sacrum. Sagittal and coronal reformats were constructed. For radiation dose reduction, the following was used: automated exposure control. COMPARISON: [facility], CT, CT LUMBAR SPINE WO CON, 11/03/2020, 11:22. FINDINGS: Image quality: Excellent. Bones: For the purposes of numbering, the same numbering system will be utilized as previously. That being said, the vertebral body labeled as L1 actually has ribs. Therefore, in actuality, there are 4 non rib-bearing lumbar vertebral bodies. The previous instrumentation is described as occurring from L4 through S1, with posterior lateral radha and pedicle screw fixation and interbody spacers. There is no evidence of hardware failure or loosening. The previously noted lucency adjacent to the left S1 screw does not appear evident at this time. No acute vertebral body compression fractures. The compression fracture has increased, with marked midportion vertebral body height loss. However, there is no suspicion of fracture acuity. A degree of bony retropulsion has developed, measuring approximately 3 mm, resulting in mild canal stenosis at the level of the fracture. No interval fractures are noted. There is been interval increase in vertebral body height loss No suspicious lytic or blastic bony lesions. No pars defects. Soft tissues: No retroperitoneal masses or hematomas. Visualized aorta is normal in caliber. IMPRESSION: 1. There are actually only 4 non rib-bearing lumbar vertebral bodies. However, for numbering purposes, the level with the compression fracture is still described as being L2, and the previous fusion continues to be described as L4 through S1. 2. There is significant interval increase in the midportion vertebral body height loss of the compressed vertebral body, L2, but this is an old fracture. There is mild bony retropulsion which has developed, resulting in mild canal stenosis. 3. No evidence of hardware failure or loosening. Previous lucency identified surrounding the lowest left-sided screw is no longer appreciated. 4. No additional compression fractures are identified. Dictated by: Timmy Newman M.D. on 07/02/2023 at 11:29 Approved by: Timmy Newman M.D. on 07/02/2023 at 11:54
== END ==
LOC: CT 09:34
PROVIDERS: PCP Family Medicine; Referring Provider Orthopaedic Surgery Orthopaedic Surgery of the Spine; Visit Provider Orthopaedic Surgery Orthopaedic Surgery of the Spine
DX: M43.16 Spondylolisthesis, lumbar region (principal); M48.56XA Collapsed vertebra, not elsewhere classified, lumbar region, initial encounter for fracture; M48.02 Spinal stenosis, cervical region; Z98.1 Arthrodesis status
CPT/HCPCS: 72131

== ENCOUNTER → 2023-09-22 14:21 | Outpatient (CLI) | payer MEDICARE, BC, SELFPAY ==
[2022-11-11 18:41] VITALS: BMI 30.2
--- NOTE | 2023-09-22 14:23 | DI.RAD.S_ITS ---
PROCEDURE: XR CHEST 2V INDICATIONS: concern for left pneumonia TECHNIQUE: 2 views of the chest were acquired. COMPARISON: [facility], CR, XR CHEST 1V, 07/27/2022, 11:45. [facility], CT, CT ANGIO CHEST PE PROTOCOL, 10/24/2020, 16:04. [facility], CR, XR CHEST 1V, 07/31/2022, 11:37. [facility], CR, XR CHEST 1V, 11/11/2022, 14:29. [facility], CR, XR CHEST 2V, 12/07/2020, 12:12. FINDINGS: Surgical changes and devices: None. Lungs and pleura: Bilateral interstitial thickening and pulmonary fibrosis. Small lung nodules are present bilaterally. No pleural effusions or pneumothorax. Mediastinum: Mediastinal contours are normal. Heart size is normal. Bones and chest wall: No suspicious bony abnormalities. Soft tissues appear unremarkable. IMPRESSION: 1. Chronic interstitial lung disease. Cannot rule out superimposed pneumonia. 2. Small nodules are seen bilaterally, most likely infectious or inflammatory etiology. 3. Consider high-resolution chest CT if clinically indicated. Dictated by: Jai Grey M.D. on 09/22/2023 at 17:11 Approved by: Jai Grey M.D. on 09/22/2023 at 17:25
== END ==
PROVIDERS: PCP Family Medicine; Referring Provider Internal Medicine; Visit Provider Internal Medicine
DX: J18.9 Pneumonia, unspecified organism (principal); R91.8 Other nonspecific abnormal finding of lung field; J47.9 Bronchiectasis, uncomplicated; R09.02 Hypoxemia; J45.50 Severe persistent asthma, uncomplicated
CPT/HCPCS: 71046; 99214

== ENCOUNTER 2023-11-10 17:36 | Emergency (ER) | payer MEDICARE, BC, SELFPAY ==
[2022-11-11 18:41] VITALS: BMI 30.2
[2023-11-10] VITALS (13 sets, daily range): BP systolic 115–182; BP diastolic 55–83; PULSE 84–120; RESP 18–24; TEMP 36.8; O2SAT 82–100; BMI 37.8
--- NOTE | 2023-11-10 18:06 | DI.RAD.S_ITS ---
PROCEDURE: XR CHEST 1V INDICATIONS: Shortness of breath TECHNIQUE: One view of the chest was acquired. COMPARISON: [facility], CR, XR CHEST 2V, 09/22/2023, 14:25. [facility], CR, XR CHEST 1V, 11/11/2022, 14:29. FINDINGS: Surgical changes and devices: None. Lungs and pleura: Mild diffuse lung disease versus chronic interstitial changes. No drainable effusions. Low lung volumes. Mediastinum: Cardiomediastinal contours are unchanged. Bones and chest wall: Degenerative findings. IMPRESSION: Mild diffuse lung disease again seen, versus chronic interstitial changes. No new dense consolidation. No drainable effusions. Limited single view portable radiograph with low lung volumes. Dictated by: Charlie Mclain M.D. on 11/10/2023 at 18:51 Approved by: Charlie Mclain M.D. on 11/10/2023 at 18:52
[2023-11-10 18:38] LABS: Add Manual Diff / Slide Review NO; Basophils Absolute Auto 100 /uL (0-100); Eosinophils Absolute Auto 1100 /uL (0-450); Eosinophils Percent Auto 10.9 % (2-4); Hematocrit 35.5 % (36-46); Lymphocytes Absolute Auto 1400 /uL (1100-4500); Lymphocytes Percent Auto 15.1 % (25-40); Mean Corpuscular Hemoglobin 29.2 PG (26-34); Mean Corpuscular Volume 94.3 fL (80-100); Monocytes Absolute Auto 1000 /uL (0-900); Neutrophils Absolute Auto 6100 /uL (1500-7000); Platelet Count 313 X10^3/uL (150-400); Red Blood Cell Count 3.77 X10^6/uL (4.0-5.2); Red Cell Distribution Width 14.9 % (11.6-14.8); White Blood Cell Count 9.6 X10^3/uL (4.5-11.0)
[2023-11-10 18:45] LABS: Prothrombin Time 11.8 SECONDS (9.4-12.5)
--- NOTE | 2023-11-10 18:47 | EKG_ITS ---
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
[2023-11-10 18:49] LABS: Alanine Aminotransferase 17 IU/L (<35); Albumin 4.3 g/dL (3.5-5.0); Albumin Globulin Ratio 1.7 (1.0-2.8); Alkaline Phosphatase 69 U/L (38-126); Aspartate Aminotransferase 29 IU/L (14-36); BUN Creatinine Ratio 26.9 (6-22); Bilirubin Total 0.4 mg/dL (0.2-1.3); Blood Urea Nitrogen 21 mg/dL (7-17); Carbon Dioxide 36 mmol/L (22-32); Chloride 98 mmol/L (98-107); Estimated Glomerular Filt Rate > 60 mL/min (>60); Globulin 2.6 g/dL (1.7-4.1); Glucose 143 mg/dL (80-110); HEMOLYSIS < 15 (0-50); Potassium 4.1 mmol/L (3.4-5.1); Sodium 138 mmol/L (137-145); Total Protein 6.9 g/dL (6.3-8.2)
[2023-11-10 18:50] LABS: Lactate (Lactic Acid) 2.3 mmol/L (0.7-2.1)
[2023-11-10 18:52] LABS: D Dimer 816 ng/ml (<500)
[2023-11-10 19:01] LABS: NT-proBNP (BNP-Adult 18+) 86 pg/mL (<125); Troponin I < 0.012 ng/mL (0.01-0.034)
[2023-11-10] MEDS: ALBUTEROL/IPRATROPIUM 3 ML AMPUL INH (19:25)
--- NOTE | 2023-11-10 19:42 | ED_ITS ---
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 She continues on her baseline 1.5 L of oxygen at home. In the past 2 weeks her accounting assistant has increased her Lasix from 40-80 mg and then to 160 mg with no significant improvement. She notes that the edema has been progressive for at least 2 weeks, can currently she has had nausea and vomiting. She has chronic diarrhea typically 4 times a day, notes that her weight has been increasing despite early satiety and significant decrease in intake overall. She is on prednisone chronically 10 mg daily. She does not report any fevers. No abdominal pain. Related Data Home Medications Medication Instructions Recorded Confirmed acyclovir 400 mg tablet 400 mg PO BID 06/27/19 09/22/23 gabapentin 300 mg capsule 600 mg PO TID 06/27/19 09/22/23 insulin glargine 100 unit/mL (3 12 unit SUBCUT QAM 06/27/19 09/22/23 mL) subcutaneous pen (Basaglar KwikPen U-100 Insulin) montelukast 10 mg tablet 10 mg PO BEDTIME 06/27/19 09/22/23 potassium chloride 20 mEq 20 meq PO QAM 06/27/19 09/22/23 tablet,extended release rosuvastatin 10 mg tablet (Crestor) 10 mg PO BEDTIME 06/27/19 09/22/23 acetaminophen 325 mg tablet 500 mg PO Q6HR PRN Pain, Mild (1-3) 10/24/20 09/22/23 calcium carb-ergocalciferol (vit 1 tab PO DAILY 10/24/20 09/22/23 D2) 600 mg calcium-200 unit tablet folic acid 400 mcg tablet 0.4 mg PO QAM 10/24/20 09/22/23 lactobacillus comb no.10 20 20,000 mmu cells PO QAM 10/24/20 09/22/23 billion cell capsule (Probiotic) alendronate 70 mg tablet 70 mg PO 05/27/23 09/22/23 hydroxychloroquine 200 mg tablet 200 mg PO DAILY 05/27/23 09/22/23 losartan 25 mg tablet 25 mg PO DAILY 05/27/23 09/22/23 mycophenolate mofetil 250 mg 750 mg PO BID 05/27/23 09/22/23 capsule nystatin 100,000 unit/gram topical 1 applic topical PRN 05/27/23 09/22/23 ointment pen needle, diabetic 31 gauge x #1,200 ea 05/27/23 09/22/2316 (BD Ultra-Fine Short Pen Needle) tramadol 50 mg tablet 50 mg PO BID PRN 05/27/23 09/22/23 Previous Rx's Medication Instructions Recorded prednisone 10 mg tablet 10 mg PO DAILY #30 tabs 06/30/23 doxycycline hyclate 100 mg capsule 100 mg PO BID 21 days #42 caps 09/08/23 levofloxacin 500 mg tablet 500 mg PO DAILY #14 tabs 09/22/23 furosemide 40 mg tablet See Rx Instructions PO DAILY PRN 10/26/23 weight gain #120 tabs doxycycline hyclate 100 mg capsule 100 mg PO BID 21 days #42 caps 11/10/23 prednisone 20 mg tablet 20 mg PO DAILY #42 tabs 11/10/23 Allergies Allergy/AdvReac Type Severity Reaction Status Date / Time Penicillins Allergy Severe Swelling Verified 09/22/23 13:43 of Lip/Tongue/Throat amoxicillin Allergy Intermediate Hives Verified 09/22/23 13:43 oxycodone Allergy Intermediate Hives Verified 09/22/23 13:43 Sulfa (Sulfonamide Allergy Intermediate Hives Verified 09/22/23 13:43 Antibiotics) Patient History Medical History [place]'s disease Arthritis Asthma Chronic cough CKD (chronic kidney disease), stage III Diabetes Edema GERD (gastroesophageal reflux disease) Hiatal hernia HLD (hyperlipidemia) HTN (hypertension) Incontinence Interstitial lung disease Nasal polyp Neuropathy Pneumonia Polymyositis Sarcoidosis SCC (squamous cell carcinoma) Surgical History H/O wrist surgery History of arthroplasty of left knee History of arthroplasty of right knee Hx of bilateral cataract extraction Hx of cholecystectomy Hx of hernia repair Hx of tonsillectomy Status post correction of deviated nasal septum Social History household members: none Smoking Status: Never smoker alcohol intake: never Smoking Status: Never smoker alcohol intake frequency: holidays/special occasions only Substance Use Type: does not use Exam Initial Vital Signs Initial Vital Signs: Vital Signs Temperature 98.2 F 11/10/23 17:57 Pulse Rate 91 H 11/10/23 17:57 Respiratory Rate 20 11/10/23 17:57 Blood Pressure 140/63 11/10/23 17:57 Pulse Oximetry 94 11/10/23 17:57 Oxygen Delivery Method Nasal Cannula 11/10/23 17:57 Oxygen Flow Rate 1.5 11/10/23 17:57 General: Chronically ill-appearing but in no acute distress. Able to give a complete and coherent history. Able to speak in full sentences HEENT: Moist mucous membranes, normal sclera with reactive pupils, Neck: No JVD, supple Respiratory: Lungs coarse breath sounds throughout all lung marte, scattered wheezing more in the upper lung marte, crackles in lower lung marte Cardiac: Regular rate and rhythm no murmurs no bruits Abdomen: Soft, nontender, good bowel tones, no flank pain Skin: Warm and dry, no rashes Neurologic: Grossly neurologically intact with no obvious asymmetries or abnormalities Extremities: 1 to 2+ nonpitting edema in lower extremities without chronic venous stasis changes Psych: Cooperative, appropriate insight and affect Course Orders Ordered: ED Orders 11/10/23 18:06 XR chest 1V Stat EKG-12 Lead Stat Measure peak expiratory flow ONCE RT Consult Eval and Treat NOW 11/10/23 18:23 Complete Blood Count AUTO DIFF Stat Comprehensive Metabolic Panel Stat D Dimer Stat Lactate (Lactic Acid) Stat NT-proBNP (BNP-Adult 18+) Stat Prothrombin Time INR Stat Troponin I Stat 11/10/23 19:50 CT angio chest PE protocol Stat 11/10/23 19:57 CT abdomen pelvis w con Stat 11/10/23 20:00 Respiratory Panel (Film Array) Stat Discontinued Medications Albuterol/Ipratropium (Albuterol/Ipratropium 3 Ml Ampul) 3 ml INH NOW ONE Stop: 11/10/23 19:23 Last Admin: 11/10/23 19:25 Dose: 3 ml Documented By: PASCUAL Doxycycline Hyclate (Doxycycline Hyclate 100 Mg Tablet) 100 mg PO NOW ONE Stop: 11/10/23 22:03 Last Admin: 11/10/23 22:23 Dose: 100 mg Documented By: MENDY Methylprednisolone (Methylprednisolone 125 Mg/2 Ml Vial) 125 mg IV NOW ONE Stop: 11/10/23 19:58 Last Admin: 11/10/23 20:12 Dose: 125 mg Documented By: MENDY Vital Signs Vital signs: Vital Signs - 8 hr 11/10/23 17:57 11/10/23 18:18 11/10/23 18:20 Temperature 98.2 F Pulse Rate 91 H 96 H Respiratory Rate 20 Blood Pressure 140/63 152/72 H Pulse Oximetry 94 99 Oxygen Delivery Method Nasal Cannula Oxygen Flow Rate 1.5 11/10/23 18:20 11/10/23 18:30 11/10/23 18:31 Temperature Pulse Rate 90 85 Respiratory Rate 21 Blood Pressure 126/61 Pulse Oximetry 99 99 Oxygen Delivery Method Oxygen Flow Rate 11/10/23 18:31 11/10/23 19:00 11/10/23 19:00 Temperature Pulse Rate 86 84 Respiratory Rate 20 20 Blood Pressure 117/59 L Pulse Oximetry 100 100 Oxygen Delivery Method Oxygen Flow Rate 11/10/23 19:30 11/10/23 19:30 11/10/23 19:30 Temperature Pulse Rate 90 Respiratory Rate 20 Blood Pressure 115/55 L Pulse Oximetry 97 Oxygen Delivery Method Nasal Cannula Oxygen Flow Rate 1.5 11/10/23 20:00 11/10/23 20:00 11/10/23 20:31 Temperature Pulse Rate 97 H 102 H Respiratory Rate 21 22 Blood Pressure 122/56 L Pulse Oximetry 97 99 Oxygen Delivery Method Oxygen Flow Rate 11/10/23 20:31 11/10/23 21:03 11/10/23 21:30 Temperature Pulse Rate 120 H 97 H Respiratory Rate 24 18 Blood Pressure 131/65 Pulse Oximetry 82 L 97 Oxygen Delivery Method Oxygen Flow Rate 11/10/23 22:00 11/10/23 22:13 11/10/23 22:13 Temperature Pulse Rate 98 H 106 H Respiratory Rate 20 23 Blood Pressure 182/83 H Pulse Oximetry 96 94 Oxygen Delivery Method Nasal Cannula Oxygen Flow Rate 2 Medical Decision Making Lab Data 11/10/23 18:23 11/10/23 18:23 Labs: Lab Results 11/10/23 11/10/23 11/10/23 Range/Units 18:23 20:00 20:15 WBC 9.6 (4.5-11.0) X10^3/uL RBC 3.77 L (4.0-5.2) X10^6/uL Hgb 11.0 L (12.0-16.0) g/dL Hct 35.5 L (36-46) % MCV 94.3 (80-100) fL MCH 29.2 (26-34) PG MCHC 31.0 (30-36) % RDW 14.9 H (11.6-14.8) % Plt Count 313 (150-400) X10^3/uL Neut % (Auto) 63.0 (50-75) % Lymph % (Auto) 15.1 L (25-40) % [place] % (Auto) 10.0 (3-14) % Eos % (Auto) 10.9 H (2-4) % Baso % (Auto) 1.0 (0-2) % Neut # (Auto) 6100 (1115-4213) /uL Lymph # (Auto) 1400 (9969-9996) /uL [place] # (Auto) 1000 H (0-900) /uL Eos # (Auto) 1100 H (0-450) /uL Baso # (Auto) 100 (0-100) /uL PT 11.8 (9.4-12.5) SECONDS INR 1.0 (0.9-1.3) D-Dimer 816 H (<500) ng/ml Sodium 138 (137-145) mmol/L Potassium 4.1 (3.4-5.1) mmol/L Chloride 98 (98-107) mmol/L Carbon Dioxide 36 H (22-32) mmol/L BUN 21 H (7-17) mg/dL Creatinine 0.78 (0.52-1.04) mg/dL Estimated GFR > 60 (>60) mL/min BUN/Creatinine Ratio 26.9 H (6-22) Glucose 143 H (80-110) mg/dL Lactate 2.3 H 1.5 (0.7-2.1) mmol/L Calcium 10.0 (8.4-10.2) mg/dL Total Bilirubin 0.4 (0.2-1.3) mg/dL AST 29 (14-36) IU/L ALT 17 (<35) IU/L Alkaline Phosphatase 69 (38-126) U/L Troponin I < 0.012 (0.01-0.034) ng/mL NT-Pro-B Natriuret Pep 86 (<125) pg/mL Total Protein 6.9 (6.3-8.2) g/dL Albumin 4.3 (3.5-5.0) g/dL Globulin 2.6 (1.7-4.1) g/dL Albumin/Globulin Ratio 1.7 (1.0-2.8) Chlamy pneumoniae PCR Not detected (Not Detect) Adenovirus (PCR) Not detected (Not Detect) B.parapertussis DNA PCR Not detected (Not Detecte) Coronavirus OC43 (PCR) Not detected (Not Detect) Coronavirus HKU1 (PCR) Not detected (Not Detect) Coronavirus 229E (PCR) Not detected (Not Detect) SARS-CoV-2 (PCR) Not detected (Not Detecte) Coronavirus NL63 (PCR) Not detected (Not Detect) Human Metapneumovir PCR Not detected (Not Detect) Influenza Type A (PCR) Not detected (Not Detect) Influenza Type B (PCR) Not detected (Not Detect) M. pneumoniae (PCR) Not detected (Not Detect) Parainfluenza 1 (PCR) Not detected (Not Detect) Parainfluenza 2 (PCR) Not detected (Not Detect) Parainfluenza 3 (PCR) Not detected (Not Detect) Parainfluenza 4 (PCR) Not detected (Not Detect) RSV (PCR) Not detected (Not Detect) Entero/Rhino (PCR) Detected H (Not Detect) Urine Dip Bedside Urine Glucose Negative Bedside Urine Bilirubin - Negative Bedside Urine Ketone - Negative Urine Specific [place] 1.015 Bedside Urine Occult Blood - Negative Bedside Urine pH 6.0 Bedside Urine Protein - Negative Bedside Urine Urobilinogen - Negative Bedside Urine Nitrite - Negative Bedside Urine Leukocytes - Negative Esterase Point of care testing: Urine Dip Bedside Urine Glucose Negative Bedside Urine Bilirubin - Negative Bedside Urine Ketone - Negative Urine Specific [place] 1.015 Bedside Urine Occult Blood - Negative Bedside Urine pH 6.0 Bedside Urine Protein - Negative Bedside Urine Urobilinogen - Negative Bedside Urine Nitrite - Negative Bedside Urine Leukocytes - Negative Esterase Imaging Data CT scan - chest: Radiologist's Impression: PROCEDURE: CT ANGIO CHEST PE PROTOCOL INDICATIONS: progressive dyspnea TECHNIQUE: After the administration of intravenous contrast, 2 mm thick sections acquired from the pulmonary apices to the posterior costophrenic angles. 3-dimensional maximum intensity projection (MIP) coronal and sagittal reformats were then acquired through the thorax. For radiation dose reduction, the following was used: automated exposure control, adjustment of mA and/or kV according to patient size. COMPARISON: [facility], CT, CT ANGIO CHEST PE PROTOCOL, 10/24/2020, 16:04. FINDINGS: Image quality: Diagnostic. Pulmonary arteries: Pulmonary arteries are normal in size, and demonstrate no intraluminal filling defects to suggest central pulmonary embolism. Lower Neck: No enlarged lymph nodes. Thyroid: No thyroid nodules which require sonographic follow up, per consensus guidelines. Axillae: No enlarged lymph nodes. Chest Wall: Unremarkable. Bones: Unremarkable. Lungs and Pleura: No pneumothorax or pleural effusions. No consolidations. Emphysematous changes are present. Bronchiectasis is prominent particularly within the lower lobes progressive since 2020. Small clustered areas of nodularity are present particularly in the left upper lobe. This appears more prominent compared to 202. Heart: Heart size is normal. No pericardial effusion. Thoracic Vessels: No aortic aneurysm. Mediastinum and Desiree: Mediastinal adenopathy is present with a 1.3 cm left paratracheal lymph node. Lymph nodes for borderline enlarged in 202 although slightly more current exam Esophagus: No wall thickening. Large hiatal hernia. Upper Abdomen: Visualized upper abdomen solid organs and bowel loops appear normal. IMPRESSION: No pulmonary embolus. Prominent chronic interstitial changes are present including bronchiectasis progressive compared to prior exam. Nodular cluster within the left upper lobe suggestive of infection/inflammation which may include atypical etiology such as fungal and/or mycobacterial. It is mildly more prominent compared to prior exam. Mediastinal adenopathy slightly more prominent when compared to 202. This could be reactive in nature. Dictated by: Ary Perales M.D. on 11/10/2023 at 21:04 CT scan - abdomen/pelvis: Radiologist's Impression: PROCEDURE: CT ABDOMEN PELVIS W CON INDICATIONS: early satiety, weight increase, increased edema TECHNIQUE: After the administration of intravenous contrast, axial sections acquired from the lung bases to the pubic symphysis. Coronal and sagittal reformats were performed. For radiation dose reduction, the following was used: automated exposure control, adjustment of mA and/or kV according to patient size. COMPARISON: [facility], CT, CT ANGIO CHEST PE PROTOCOL, 10/24/2020, 16:04. FINDINGS: Image quality: Diagnostic. Lower Chest: Multi scattered areas of clustered nodules are present within the visualized lower lobes. Lower lobe bronchiectasis is also present bilaterally. ABDOMEN: Liver: No solid mass. Gallbladder: Removed. Biliary ducts: No biliary dilation. Pancreas: No ductal dilation. Cystic focus measuring 1.7 cm is arising within the pancreatic tail appearing to originate from the duct on series 2, image 27. It is unchanged since 202. Spleen: Size is within normal limits. Adrenal Glands: No adrenal nodules. Kidneys and Ureters: No hydronephrosis. No solid mass. No complex renal cystic lesion which requires follow up. Simple left renal cysts. Stomach and Bowel: Normal colonic caliber, without significant wall thickening. Colonic diverticula are present associated inflammatory change. Peritoneum: No abnormal intraperitoneal fluid. No free air. Ventral Wall: There is appearance ventral hernia repair. Small focus of fat herniation is present through what appears to be defect of the left lateral aspect of the repair. Abdominal Nodes: No retroperitoneal or mesenteric adenopathy by size criteria. Vessels: Aorta and inferior vena cava are normal in size. PELVIS: Pelvic Organs: Uterus demonstrates multiple calcifications most suggestive of uterine fibroids. Bladder: No bladder wall thickening, accounting for underdistention. Pelvic Nodes: No enlarged lymph nodes. Miscellaneous: No inguinal hernias are seen. Bones: No aggressive osseous abnormality. Lower lumbar fusion is IMPRESSION: Clustered areas of nodularity within the lungs. Please see CT chest report of 11/10/2023 for further details. Diverticulosis. Cystic focus within the pancreas unchanged. This may represent sequela prior infection or inflammation or IPMN. Dictated by: Ary Perales M.D. on 11/10/2023 at 21:16 MDM Narrative Medical decision making narrative: CC: Edema with increasing dyspnea Complicating co-morbidities: Pulmonary fibrosis, chronic oxygen use at home Data collected from: patient Social determinants of health that may influence the patients condition: Medical records reviewed: Hospitalization almost exactly a year ago for rhino virus with bacterial pneumonia reviewed Differential considered: Viral infection, congestive heart failure, acute coronary syndrome, progressive pulmonary fibrosis, pulmonary embolism Exam documented above, pertinent findings include: Significant rhonchi and wheezing in lung marte, 1 to 2+ nonpitting lower extremity edema without evidence of infection. Remainder of exam is relatively benign. Patient is able to speak in complete sentences in his in no respiratory distress at this time Lab Test results independently reviewed as above. Pertinent findings: CBC is relatively unremarkable. Her anemia is actually improved, she does not have a significant white cell count Chemistries show normal renal function at 0.78. Liver studies are unremarkable Initial troponin is undetectable BNP is normal Lactic acid slightly elevated at 2.3 D-dimer slightly elevated at 816 Respiratory panel shows positive entero/rhino virus. This has been positive on July 27, 2022, November 11, 2022 and again on November 10, 2023. Independently reviewed EKG: Sinus rhythm at a rate of 86 with no acute ischemic changes. Normal intervals, normal axis Imaging studies independently reviewed: Chest x-ray shows chronic diffuse disease likely representing chronic interstitial changes no effusions no new consolidations Consultations: Discussion with Respiratory therapy, peak flow does not change pre and post DuoNeb treatment Treatments: DuoNeb, IV Solu-Medrol Discussion: 73-year-old woman with pulmonary fibrosis on 1.5 L of oxygen at home comes in complaining of orthopnea and increased edema. Workup today is actually quite unrevealing. There is slight progression of her pulmonary fibrosis, there is no evidence of pulmonary embolism, acute coronary syndrome, congestive heart failure with volume overload, no liver failure no renal failure. At this point I am seeing no evidence of infection or significant anemia. I do not have a complete explanation for her increased edema. She is testing positive for entero/rhino virus. She has not having any fevers and oxygen saturations are appropriate and appear to be at baseline. She tested positive for this in October of last year in July of last year. At this time, I think being more aggressive with treating her pulmonary fibrosis, suggesting compression socks and elevating her legs during the day we will be helpful. She will need outpatient follow up with her pulmonary physician. In the past she is found that doxycycline for 3 weeks is most effective. Prednisone tapers typically are 60 mg for a week 40 for a week 20 for a week and then back to 10 mg. Discussed with her all of the findings, the lack of indication for hospitalization and appropriateness of discharge home. She is actually quite relieved. I did recommend that she back down to her baseline dose of furosemide as there is no evidence that the higher doses are helpful with the edema nor is there any evidence of congestive heart failure or significant volume overload. Questions are answered and she is safe for discharge Discharge Plan Departure Patient Disposition: Home Clinical Impression: Pulmonary fibrosis, unspecified, Lower extremity edema, Rhinovirus infection Instructions: DI for Dependent Edema Activity Restrictions/Additional Instructions: Thank you for coming in today I do not have a complete explanation for your increased shortness of breath and your lower extremity edema. All of the standard things that we look for that would require hospitalization, I am not finding. Specifically there was no evidence for congestive heart failure, heart attack or heart attack like syndrome, kidney failure, liver failure. You do not have pulmonary embolism, there is no extra fluid in your lungs, the CT scan of your abdomen was benign suggesting no obstructing lesions or concerns to create the lower extremity edema. The CT scan of your chest does suggest some progression of your pulmonary fibrosis. In the emergency department I did give you an extra dose of Solu-Medrol, a steroid. I also gave you a dose of doxycycline. I am going to suggest that we restart you on doxycycline in you has stated that typically 3 weeks is your usual regimen. We will also have you go back up to 60 mg of prednisone for a week, 40 for a week 20 for a week and then continue with your usual 10 mg. I would recommend that you keep your feet a bit more elevated to avoid worsening dependent edema. You might also consider using compression socks. The most comfortable ones can be found from exercise stores are department's. Compression socks use by runners are very effective and often times much more comfortable than any of the medical variety. You do need to follow up with your primary care physician as well as your accounting assistant If you find that you are getting worse or develop any new symptoms, please feel free to return to the emergency department for further evaluation. Prescriptions: New doxycycline hyclate 100 mg capsule 100 mg PO BID 21 Days Qty: 42 0RF prednisone 20 mg tablet 20 mg PO DAILY Qty: 42 0RF Rx Instructions: 60mg x 7 days, 40mg x 7 days, 20mg x 7days, then continue usual 10mg daily No Action prednisone 10 mg tablet 10 mg PO DAILY Qty: 30 3RF doxycycline hyclate 100 mg capsule 100 mg PO BID 21 Days Qty: 42 5RF Rx Instructions: for bronchiectasis flare acetaminophen 325 mg tablet 500 mg PO Q6HR PRN (Reason: Pain, Mild (1-3)) folic acid 400 mcg Tablet 0.4 mg PO QAM calcium carbonate-vitamin D2 600 mg calcium- 200 unit Tablet 1 tab PO DAILY Probiotic 20 billion cell Capsule 20,000 mmu cells PO QAM acyclovir 400 mg Tablet 400 mg PO BID gabapentin 300 mg Capsule 600 mg PO TID montelukast 10 mg Tablet 10 mg PO BEDTIME rosuvastatin [Crestor] 10 mg Tablet 10 mg PO BEDTIME insulin glargine [Basaglar KwikPen U-100 Insulin] 100 unit/mL (3 mL) Insulin Pen 12 unit SUBCUT QAM potassium chloride 20 mEq Tablet Extended Release 20 meq PO QAM alendronate 70 mg tablet 70 mg PO nystatin 100,000 unit/gram ointment 1 applic topical PRN tramadol 50 mg tablet 50 mg PO BID PRN mycophenolate mofetil 250 mg capsule 750 mg PO BID hydroxychloroquine 200 mg tablet 200 mg PO DAILY (DME) pen needle, diabetic [BD Ultra-Fine Short Pen Needle] 31 gauge x 5/16 needle See Rx Instructions .ROUTE DAILY Qty: 1200 Rx Instructions: As directed losartan 25 mg tablet 25 mg PO DAILY levofloxacin 500 mg tablet 500 mg PO DAILY Qty: 14 0RF Rx Instructions: stop hydroxychloroquine while taking medication furosemide 40 mg tablet See Rx Instructions PO DAILY PRN (Reason: weight gain) Qty: 120 11RF Rx Instructions: 80-160mg orally daily PRN to target dry weight of 170lbs Referrals: Donny Avendano MD [Primary Care Provider] - Stand Alone Forms: Patient Portal/API
--- NOTE | 2023-11-10 19:50 | DI.CT.S_ITS ---
PROCEDURE: CT ANGIO CHEST PE PROTOCOL INDICATIONS: progressive dyspnea TECHNIQUE: After the administration of intravenous contrast, 2 mm thick sections acquired from the pulmonary apices to the posterior costophrenic angles. 3-dimensional maximum intensity projection (MIP) coronal and sagittal reformats were then acquired through the thorax. For radiation dose reduction, the following was used: automated exposure control, adjustment of mA and/or kV according to patient size. COMPARISON: [facility], CT, CT ANGIO CHEST PE PROTOCOL, 10/24/2020, 16:04. FINDINGS: Image quality: Diagnostic. Pulmonary arteries: Pulmonary arteries are normal in size, and demonstrate no intraluminal filling defects to suggest central pulmonary embolism. Lower Neck: No enlarged lymph nodes. Thyroid: No thyroid nodules which require sonographic follow up, per consensus guidelines. Axillae: No enlarged lymph nodes. Chest Wall: Unremarkable. Bones: Unremarkable. Lungs and Pleura: No pneumothorax or pleural effusions. No consolidations. Emphysematous changes are present. Bronchiectasis is prominent particularly within the lower lobes progressive since 2020. Small clustered areas of nodularity are present particularly in the left upper lobe. This appears more prominent compared to 202. Heart: Heart size is normal. No pericardial effusion. Thoracic Vessels: No aortic aneurysm. Mediastinum and Desiree: Mediastinal adenopathy is present with a 1.3 cm left paratracheal lymph node. Lymph nodes for borderline enlarged in 202 although slightly more current exam Esophagus: No wall thickening. Large hiatal hernia. Upper Abdomen: Visualized upper abdomen solid organs and bowel loops appear normal. IMPRESSION: No pulmonary embolus. Prominent chronic interstitial changes are present including bronchiectasis progressive compared to prior exam. Nodular cluster within the left upper lobe suggestive of infection/inflammation which may include atypical etiology such as fungal and/or mycobacterial. It is mildly more prominent compared to prior exam. Mediastinal adenopathy slightly more prominent when compared to 202. This could be reactive in nature. Dictated by: Ary Perales M.D. on 11/10/2023 at 21:04 Approved by: Ary Perales M.D. on 11/10/2023 at 21:06
--- NOTE | 2023-11-10 19:57 | DI.CT.S_ITS ---
PROCEDURE: CT ABDOMEN PELVIS W CON INDICATIONS: early satiety, weight increase, increased edema TECHNIQUE: After the administration of intravenous contrast, axial sections acquired from the lung bases to the pubic symphysis. Coronal and sagittal reformats were performed. For radiation dose reduction, the following was used: automated exposure control, adjustment of mA and/or kV according to patient size. COMPARISON: [facility], CT, CT ANGIO CHEST PE PROTOCOL, 10/24/2020, 16:04. FINDINGS: Image quality: Diagnostic. Lower Chest: Multi scattered areas of clustered nodules are present within the visualized lower lobes. Lower lobe bronchiectasis is also present bilaterally. ABDOMEN: Liver: No solid mass. Gallbladder: Removed. Biliary ducts: No biliary dilation. Pancreas: No ductal dilation. Cystic focus measuring 1.7 cm is arising within the pancreatic tail appearing to originate from the duct on series 2, image 27. It is unchanged since 202. Spleen: Size is within normal limits. Adrenal Glands: No adrenal nodules. Kidneys and Ureters: No hydronephrosis. No solid mass. No complex renal cystic lesion which requires follow up. Simple left renal cysts. Stomach and Bowel: Normal colonic caliber, without significant wall thickening. Colonic diverticula are present associated inflammatory change. Peritoneum: No abnormal intraperitoneal fluid. No free air. Ventral Wall: There is appearance ventral hernia repair. Small focus of fat herniation is present through what appears to be defect of the left lateral aspect of the repair. Abdominal Nodes: No retroperitoneal or mesenteric adenopathy by size criteria. Vessels: Aorta and inferior vena cava are normal in size. PELVIS: Pelvic Organs: Uterus demonstrates multiple calcifications most suggestive of uterine fibroids. Bladder: No bladder wall thickening, accounting for underdistention. Pelvic Nodes: No enlarged lymph nodes. Miscellaneous: No inguinal hernias are seen. Bones: No aggressive osseous abnormality. Lower lumbar fusion is IMPRESSION: Clustered areas of nodularity within the lungs. Please see CT chest report of 11/10/2023 for further details. Diverticulosis. Cystic focus within the pancreas unchanged. This may represent sequela prior infection or inflammation or IPMN. Dictated by: Ary Perales M.D. on 11/10/2023 at 21:16 Approved by: Ary Perales M.D. on 11/10/2023 at 21:22
[2023-11-10 20:08] LABS: Reflexed Lactate in 2 Hours Y
[2023-11-10] MEDS: methylPREDNISolone 125 MG/2 ML VIAL IV (20:12)
[2023-11-10 20:48] LABS: Lactate 2HR (Lactic Acid Rflx) 1.5 mmol/L (0.7-2.1)
[2023-11-10 22:09] LABS: Adenovirus Not Detected (Not Detect); B. parapertussis Not Detected (Not Detecte); Bordetella pertussis Not Detected (Not Detect); Chlamydophila pneumoniae Not Detected (Not Detect); Coronavirus 229E Not Detected (Not Detect); Coronavirus HKU1 Not Detected (Not Detect); Coronavirus NL 63 Not Detected (Not Detect); Coronavirus OC43 Not Detected (Not Detect); Human Metapneumovirus Not Detected (Not Detect); Human Rhinovirus/Enterovirus Detected (Not Detect); Influenza A Not Detected (Not Detect); Influenza B Not Detected (Not Detect); Mycoplasma pneumoniae Not Detected (Not Detect); Parainfluenza Virus 1 Not Detected (Not Detect); Parainfluenza Virus 2 Not Detected (Not Detect); Parainfluenza Virus 3 Not Detected (Not Detect); Parainfluenza Virus 4 Not Detected (Not Detect); Respiratory Syncytial Virus Not Detected (Not Detect); SARS- CoV-2 Not Detected (Not Detecte)
[2023-11-10] MEDS: DOXYCYCLINE HYCLATE 100 MG TABLET PO (22:23)
== END 2023-11-10 22:54 | disposition home or self-care (01) ==
PROVIDERS: Emergency Provider Emergency Medicine; PCP Family Medicine
DX: J84.10 Pulmonary fibrosis, unspecified (principal); R60.0 Localized edema; R06.02 Shortness of breath; B34.8 Other viral infections of unspecified site; Z79.899 Other long term (current) drug therapy; Z11.52 Encounter for screening for COVID-19
CPT/HCPCS: 71045; 71275; 74177; 80053; 81003; 83605; 83880; 84484; 85025; 85379; 85610; 87633; 93005; 94150; 94640; 96374; 99284; 99285; J2919; Q9967

== ENCOUNTER → 2024-01-25 15:31 | Outpatient (CLI) | payer MEDICARE, BC, SELFPAY ==
[2022-11-11 18:41] VITALS: BMI 30.2
--- NOTE | 2024-01-25 15:32 | DI.ECHO.S_ITS ---
[facility] : : [id number] : [place] : : [id number] : : Phone: [phone] Echocardiogram Report + + :Name: NICOLASA RAHMAN Study Date: 01/25/2024 Height: 58 in : :[facility] ReadingLocation: Weight: 186 lb : : Gender: Female BSA: 1.8 m2 : :: 1950 Age: 73 yrs BP: 156/81 mmHg: :Reason For Study: HEART FAILURE : :Ordering Physician: GEORGIE, : :JENNIFER Performed By: Vadim Puentes : :Referring: JENNIFER JACQUES : + + Interpretation Summary 1. Normal LV contractility. EF > 60%. Mild cLVH. No WMA. Grade 1 diastolic dysfunction. 2. Normal RV contractility. 3. Normal cardiac chamber sizes. 4. Mild TR with estimated PSAP of 41 mmHg. 5. No obvious intracardiac shunts. 6. No obvious intracardiac masses/thrombi. 7. No hemodynamically significant pericardial effusion. 8. Low right sided filling pressures. Conclusion: Normal biventricular systolic function with mild pulmonary hypertension. When compared with previous echocardiogram, there are no significant changes. Procedure: A two-dimensional transthoracic echocardiogram with color flow and Doppler was performed. The study quality was technically adequate. Comparison is made with the echocardiogram of 08/01/2022. The patient was in normal sinus rhythm during the exam. Left Ventricle: The left ventricle is normal in size. Left ventricular wall thickness is mildly increased. There is no ventricular septal defect visualized. The ejection fraction is estimated to be 60-65%. Left ventricular wall motion is normal. Right Ventricle: The right ventricle is normal in size and function. The right ventricular systolic function is normal. Atria: The left atrial size is normal. Right atrial size is normal. There is no Doppler evidence for an atrial septal defect. Mitral Valve: The mitral valve is normal in structure and function. There is mild mitral annular calcification. There is trace mitral regurgitation. Aortic Valve: The aortic valve is trileaflet. The aortic valve opens well. The aortic valve is mildly calcified. There is trace aortic regurgitation. Tricuspid Valve: The tricuspid valve is normal in structure and function. There is mild tricuspid regurgitation. The right ventricular systolic pressure is estimated to be at least 41 mmHg based on an estimated right atrial pressure of 3 mm Hg. Pulmonic Valve: The pulmonic valve is normal in structure and function. There is trace pulmonic regurgitation. Great Vessels: The aortic root is normal size. The ascending aorta is at the upper limits of normal in size. The pulmonary artery is normal size. The IVC is of normal diameter and collapses greater than 50% with a sniff. This suggests a low right atrial pressure of 3 mm Hg. Pericardium/ Pleura There is no pericardial effusion. There is no pleural effusion. MMode/2D Measurements & Calculations LVIDd: 4.1 cm LVOT diam: 1.9 cm LVIDs: 1.9 cm Ao root diam: 3.3 cm FS: 54.1 % asc Aorta Diam: 3.6 cm EPSS: 0.38 cm IVSd: 1.2 cm LVPWd: 1.1 cm LV bhakta. diameter/BSA (cm/m^2): 2.3 LV sys. diameter/BSA (cm/m^2): 1.1 LA A2 area: 15.6 cm2 RA long axis: 4.6 cm LA A4 area: 22.4 cm2 RA area: 14.2 cm2 LA length (vol): 6.3 cm RA vol: 37.6 ml LA vol: 47.4 ml RA : 21.3 ml/m2 LA vol index: 26.9 ml/m2 IVC diam: 1.3 cm RVD1 (basal): 3.3 cm RVD2 (mid): 2.8 cm TAPSE: 2.4 cm Doppler Measurements & Calculations Ao V2 max: 206.5 cm/sec LVOT Max Cliff: 118.2 cm/sec Ao V2 mean: 147.1 cm/sec LV V1 max P.6 mmHg Ao max P.1 mmHg LV V1 VTI: 26.8 cm Ao mean P.7 mmHg MATEO(I,D): 1.7 cm2 Ao V2 VTI: 45.4 cm MATEO(V,D): 1.7 cm2 sev ratio: 0.59 MATEO indexed to BSA (cm^2/m^2): 0.99 MV E max cliff: 79.3 cm/sec TR max cliff: 309.5 cm/sec MV A max cliff: 110.0 cm/sec TR max P.3 mmHg MV E/A: 0.72 PA V2 max: 106.1 cm/sec Med Peak E' Cliff: 6.1 cm/sec PA V2 mean: 62.3 cm/sec E/E' med: 13.1 PA mean P.9 mmHg Lat Peak E' Cliff: 8.3 cm/sec PA pr(Accel): 39.6 mmHg E/E' lat: 9.6 E/e' average: 11.3 MV dec time: 0.22 sec [facility] 79.2 ml Reading Physician:
== END ==
PROVIDERS: PCP Family Medicine; Referring Provider Internal Medicine; Visit Provider Internal Medicine
DX: I50.33 Acute on chronic diastolic (congestive) heart failure (principal); I08.1 Rheumatic disorders of both mitral and tricuspid valves
CPT/HCPCS: 93306

== ENCOUNTER 2024-03-01 14:00 | Emergency (ER) | payer MEDICARE, BC, SELFPAY ==
[2022-11-11 18:41] VITALS: BMI 30.2
[2024-03-01] VITALS (15 sets, daily range): BP systolic 112–162; BP diastolic 57–75; PULSE 72–79; RESP 18–19; TEMP 36.2; O2SAT 95–99; BMI 36.3
--- NOTE | 2024-03-01 14:11 | DI.RAD.S_ITS ---
PROCEDURE: XR CHEST 1V INDICATIONS: Shortness of breath TECHNIQUE: One view of the chest was acquired. COMPARISON: [facility], CT, CT ANGIO CHEST PE PROTOCOL, 11/10/2023, 20:05. [facility], CR, XR CHEST 1V, 11/10/2023, 18:31. FINDINGS: Surgical changes and devices: None. Lungs and pleura: Stable findings. Bibasilar bronchiectasis and mild chronic interstitial change. No pleural effusions or pneumothorax. Mediastinum: Mediastinal contours appear normal. Heart size is normal. Bones and chest wall: No suspicious bony lesions. Overlying soft tissues appear unremarkable. IMPRESSION: Bibasilar bronchiectasis and mild chronic interstitial change. No focal acute infiltrates identified. Dictated by: Timmy Newman M.D. on 03/01/2024 at 15:18 Approved by: Timmy Newman M.D. on 03/01/2024 at 15:20
--- NOTE | 2024-03-01 14:11 | EKG_ITS ---
[address] [address] [address] [address] Test Date: 2024-03-01 Pat Name: Dorene Small Department: Room: Gender: Female [employer]: IRIS : 1950 Requested By: Order Number: [id number] Reading MD: Joel Wells MD Measurements Intervals [place] Rate: 79 P: 46 MN: 164 QRS: -10 QRSD: 90 T: 29 QT: 414 QTc: 474 Interpretive Statements Normal sinus rhythm Electronically Signed On 03-01-2024 15:08:51 PST by Joel Wells MD
[2024-03-01 14:47] LABS: Add Manual Diff / Slide Review NO; Basophils Absolute Auto 100 /uL (0-100); Basophils Percent Auto 0.6 % (0-2); Eosinophils Absolute Auto 0 /uL (0-450); Eosinophils Percent Auto 0.4 % (2-4); Hematocrit 32.7 % (36-46); Hemoglobin 10.4 g/dL (12.0-16.0); Lymphocytes Absolute Auto 800 /uL (1100-4500); Lymphocytes Percent Auto 7.5 % (25-40); Mean Corpuscular HGB Conc 31.8 % (30-36); Mean Corpuscular Volume 94.5 fL (80-100); Monocytes Absolute Auto 600 /uL (0-900); Monocytes Percent Auto 6.1 % (3-14); Neutrophils Absolute Auto 9000 /uL (1500-7000); Neutrophils Percent Auto 85.4 % (50-75); Platelet Count 271 X10^3/uL (150-400); Red Blood Cell Count 3.46 X10^6/uL (4.0-5.2); Red Cell Distribution Width 14.6 % (11.6-14.8); White Blood Cell Count 10.6 X10^3/uL (4.5-11.0)
[2024-03-01 14:57] LABS: Prothrombin Time 11.1 SECONDS (9.4-12.5)
[2024-03-01 15:05] LABS: Alanine Aminotransferase 17 IU/L (<35); Albumin 3.6 g/dL (3.5-5.0); Albumin Globulin Ratio 1.5 (1.0-2.8); Alkaline Phosphatase 72 U/L (38-126); Aspartate Aminotransferase 23 IU/L (14-36); BUN Creatinine Ratio 25.8 (6-22); Bilirubin Total 0.3 mg/dL (0.2-1.3); Blood Urea Nitrogen 23 mg/dL (7-17); Calcium 9.5 mg/dL (8.4-10.2); Carbon Dioxide 37 mmol/L (22-32); Chloride 94 mmol/L (98-107); Estimated Glomerular Filt Rate > 60 mL/min (>60); Globulin 2.4 g/dL (1.7-4.1); Glucose 292 mg/dL (80-110); HEMOLYSIS < 15 (0-50); Potassium 4.3 mmol/L (3.4-5.1); Sodium 134 mmol/L (137-145)
[2024-03-01 15:16] LABS: NT-proBNP (BNP-Adult 18+) 120 pg/mL (<125); Troponin I < 0.012 ng/mL (0.01-0.034)
--- NOTE | 2024-03-01 16:52 | ED.SOB ---
HPI - SOB/Dyspnea General Chief Complaint: Shortness of Breath/Dyspnea Stated Complaint: SOB, feeling waterlogged, sent by [facility]. Time Seen by Provider: 03/01/24 16:52 Source: patient, RN notes reviewed and old records reviewed Mode of arrival: Wheelchair Limitations: no limitations History of Present Illness HPI Narrative: 73-year-old female with a history of stage III kidney, fibrosis on 1.5 L O2 at home, asthma, hypertension, type 2 diabetes, dermatomyositis mycophenolate presents with complaint of increased shortness of breath. States she has had increased swelling as well over the past several days particularly today. Patient states no fevers, she has had some mild chills. States increasingly short of breath particularly with exertion and orthopnea. She notes increasing swelling of her extremities. Patient states no nasal congestion. She has a little bit of dry cough. States it does not feel like COPD exacerbation. Denies any nausea or vomiting. Does have intermittent diarrhea but no black or bloody stools. Patient states she does take medication for hypertension she was on torsemide 20 mg daily for the past month. She was taking furosemide until 2 weeks ago when her doctor stopped it because they felt it was too confusing to be on torsemide and furosemide. They did not adjust her torsemide at that time. She takes multiple medications including montelukast, mycophenolate and Plaquenil, medication for cholesterol, Lantus for diabetes and losartan. Patient states primary care physician is Dr. Avendano. Her processes chemical design engineer is Dr. Shah. No tobacco, no alcohol, no recreational drugs. Patient is currently on 1.5 L nasal cannula at home she has not had to increase her O2 requirements. She notes she was increased shortness of breath but has been able to get around but with more difficulty. Related Data Home Medications Medication Instructions Recorded Confirmed acyclovir 400 mg tablet 400 mg PO BID 06/27/19 02/03/24 gabapentin 300 mg capsule 600 mg PO TID 06/27/19 02/03/24 insulin glargine 100 unit/mL (3 12 unit SUBCUT QAM 06/27/19 02/03/24 mL) subcutaneous pen (Basaglar KwikPen U-100 Insulin) montelukast 10 mg tablet 10 mg PO BEDTIME 06/27/19 02/03/24 rosuvastatin 10 mg tablet (Crestor) 10 mg PO BEDTIME 06/27/19 02/03/24 acetaminophen 325 mg tablet 500 mg PO Q6HR PRN Pain, Mild (1-3) 10/24/20 02/03/24 calcium carb-ergocalciferol (vit 1 tab PO DAILY 10/24/20 02/03/24 D2) 600 mg calcium-200 unit tablet folic acid 400 mcg tablet 0.4 mg PO QAM 10/24/20 02/03/24 lactobacillus comb no.10 20 20,000 mmu cells PO QAM 10/24/20 02/03/24 billion cell capsule (Probiotic) alendronate 70 mg tablet 70 mg PO 05/27/23 02/03/24 hydroxychloroquine 200 mg tablet 200 mg PO DAILY 05/27/23 02/03/24 losartan 25 mg tablet 25 mg PO DAILY 05/27/23 02/03/24 mycophenolate mofetil 250 mg 750 mg PO BID 05/27/23 02/03/24 capsule nystatin 100,000 unit/gram topical 1 applic topical PRN 05/27/23 02/03/24 ointment pen needle, diabetic 31 gauge x #1,200 ea 05/27/23 02/03/24 5/16 (BD Ultra-Fine Short Pen Needle) tramadol 50 mg tablet 50 mg PO BID PRN 05/27/23 02/03/24 albuterol sulfate 90 mcg/actuation 2 puff inhalation Q3-4H PRN 11/20/23 02/03/24 aerosol inhaler fluticasone furoate 100 1 ea inhalation DAILY 11/20/23 02/03/24 mcg-vilanterol 25 mcg/dose inhalation powder (Breo Ellipta) potassium chloride 20 mEq 20 meq PO DAILY 11/20/23 02/03/24 tablet,extended release(part/cryst) prednisone 1 mg tablet 1 mg PO DAILY 11/20/23 02/03/24 torsemide 20 mg tablet 20 mg PO DAILY 02/03/24 02/03/24 Previous Rx's Medication Instructions Recorded prednisone 10 mg tablet 10 mg PO DAILY #30 tabs 06/30/23 furosemide 40 mg tablet See Rx Instructions PO DAILY PRN 10/26/23 weight gain #120 tabs torsemide 10 mg tablet 10 mg PO DAILY #5 tabs 03/01/24 Allergies Allergy/AdvReac Type Severity Reaction Status Date / Time Penicillins Allergy Severe Swelling Verified 03/01/24 14:04 of Lip/Tongue/Throat amoxicillin AdvReac Intermediate Hives Verified 03/01/24 14:04 oxycodone AdvReac Intermediate Hives Verified 03/01/24 14:04 Sulfa (Sulfonamide AdvReac Intermediate Hives Verified 03/01/24 14:04 Antibiotics) Review of Systems Review of Systems ROS Unobtainable: All systems reviewed & are unremarkable except as noted in HPI and below Patient History Medical History Chronic cough SCC (squamous cell carcinoma) Polymyositis Arthritis Kistler's disease Incontinence Hiatal hernia GERD (gastroesophageal reflux disease) Edema HLD (hyperlipidemia) HTN (hypertension) Nasal polyp Pneumonia Asthma Neuropathy Interstitial lung disease Sarcoidosis Diabetes CKD (chronic kidney disease), stage III Surgical History H/O wrist surgery History of arthroplasty of left knee History of arthroplasty of right knee Hx of hernia repair Hx of cholecystectomy Hx of tonsillectomy Status post correction of deviated nasal septum Hx of bilateral cataract extraction Social History household members: none Smoking Status: Never smoker alcohol intake: never Smoking Status: Never smoker alcohol intake frequency: holidays/special occasions only Substance Use Type: does not use Exam Narrative Exam Narrative: GENERAL: Alert and oriented x three, obese female in mild distress. HEENT: Head normocephalic, atraumatic, EOMI, pupils reactive, face symmetric, moist mucous membranes NECK: Supple, full range of motion CARDIOVASCULAR: Regular rate and rhythm without murmurs, rubs or gallops. Bilateral lower extremity edema. RESPIRATORY: Breath sounds equal bilaterally, patient has mild expiratory wheezes throughout but also has crackles bilaterally. No tachypnea. No accessory muscle use. Patient speaks in full sentences. ABDOMEN: Soft, nontender. Normoactive bowel sounds all 4 quadrants. No guarding or rebound, rigidity, no mass : No CVA tenderness EXTREMITIES: Normal range of motion, no clubbing. Neurovascularly intact NEUROLOGICAL: Cranial nerves II through XII grossly intact. Moving all extremities SKIN: Warm, dry, no petechiae, no rashes or lesions. Initial Vital Signs Initial Vital Signs: Vital Signs Temperature 97.1 F L 03/01/24 14:04 Pulse Rate 79 03/01/24 14:04 Respiratory Rate 18 03/01/24 14:04 Blood Pressure 148/62 H 03/01/24 14:04 Pulse Oximetry 98 03/01/24 14:04 Oxygen Delivery Method Nasal Cannula 03/01/24 14:04 Oxygen Flow Rate 2 03/01/24 14:04 Course Orders Ordered: ED Orders 03/01/24 14:11 XR chest 1V Stat EKG-12 Lead Stat Measure peak expiratory flow ONCE RT Consult Eval and Treat NOW 03/01/24 14:30 Complete Blood Count AUTO DIFF Stat Comprehensive Metabolic Panel Stat Lactate (Lactic Acid) Stat NT-proBNP (BNP-Adult 18+) Stat Prothrombin Time INR Stat Troponin I Stat Discontinued Medications Albuterol (Albuterol 2.5 Mg/3 Ml Neb (Adult)) 2.5 mg INH NOW ONE Stop: 03/01/24 17:09 Last Admin: 03/01/24 17:16 Dose: 2.5 mg Documented By: BECKY Furosemide (Furosemide 40 Mg/4 Ml Vial) 40 mg IV NOW ONE Stop: 03/01/24 17:09 Last Admin: 03/01/24 17:40 Dose: 40 mg Documented By: DAPHNE Vital Signs Vital signs: Vital Signs - 8 hr 03/01/24 14:04 03/01/24 14:19 03/01/24 14:20 Temperature 97.1 F L Pulse Rate 79 78 78 Respiratory Rate 18 Blood Pressure 148/62 H Pulse Oximetry 98 98 99 Oxygen Delivery Method Nasal Cannula Nasal Cannula Oxygen Flow Rate 2 2 2 03/01/24 14:20 03/01/24 14:30 03/01/24 15:00 Temperature Pulse Rate 78 Respiratory Rate Blood Pressure 138/65 119/61 Pulse Oximetry 96 Oxygen Delivery Method Nasal Cannula Oxygen Flow Rate 2 03/01/24 15:00 03/01/24 15:30 03/01/24 15:30 Temperature Pulse Rate 76 74 Respiratory Rate Blood Pressure 122/60 Pulse Oximetry 97 97 Oxygen Delivery Method Nasal Cannula Oxygen Flow Rate 2 03/01/24 16:00 03/01/24 16:00 03/01/24 16:30 Temperature Pulse Rate 72 74 Respiratory Rate Blood Pressure 127/61 Pulse Oximetry 98 98 Oxygen Delivery Method Nasal Cannula Oxygen Flow Rate 2 2 03/01/24 16:30 03/01/24 17:00 03/01/24 17:01 Temperature Pulse Rate 75 76 Respiratory Rate Blood Pressure 125/66 Pulse Oximetry 98 97 Oxygen Delivery Method Oxygen Flow Rate 03/01/24 17:01 03/01/24 17:19 03/01/24 17:30 Temperature Pulse Rate 79 Respiratory Rate Blood Pressure 162/75 H Pulse Oximetry 96 96 Oxygen Delivery Method Nasal Cannula Oxygen Flow Rate 2 03/01/24 17:31 03/01/24 17:31 03/01/24 18:00 Temperature Pulse Rate 76 78 Respiratory Rate 19 Blood Pressure 129/61 Pulse Oximetry 96 95 Oxygen Delivery Method Room Air Oxygen Flow Rate 03/01/24 18:00 Temperature Pulse Rate Respiratory Rate Blood Pressure 124/59 L Pulse Oximetry Oxygen Delivery Method Oxygen Flow Rate MDM - SOB/Dyspnea Lab Data 03/01/24 14:30 03/01/24 14:30 Labs: Lab Results 03/01/24 Range/Units 14:30 WBC 10.6 (4.5-11.0) X10^3/uL RBC 3.46 L (4.0-5.2) X10^6/uL Hgb 10.4 L (12.0-16.0) g/dL Hct 32.7 L (36-46) % MCV 94.5 (80-100) fL MCH 30.0 (26-34) PG MCHC 31.8 (30-36) % RDW 14.6 (11.6-14.8) % Plt Count 271 (150-400) X10^3/uL Neut % (Auto) 85.4 H (50-75) % Lymph % (Auto) 7.5 L (25-40) % Irion % (Auto) 6.1 (3-14) % Eos % (Auto) 0.4 L (2-4) % Baso % (Auto) 0.6 (0-2) % Neut # (Auto) 9000 H (1357-1007) /uL Lymph # (Auto) 800 L (5102-7855) /uL Irion # (Auto) 600 (0-900) /uL Eos # (Auto) 0 (0-450) /uL Baso # (Auto) 100 (0-100) /uL PT 11.1 (9.4-12.5) SECONDS INR 1.0 (0.9-1.3) Sodium 134 L (137-145) mmol/L Potassium 4.3 (3.4-5.1) mmol/L Chloride 94 L (98-107) mmol/L Carbon Dioxide 37 H (22-32) mmol/L BUN 23 H (7-17) mg/dL Creatinine 0.89 (0.52-1.04) mg/dL Estimated GFR > 60 (>60) mL/min BUN/Creatinine Ratio 25.8 H (6-22) Glucose 292 H (80-110) mg/dL Lactate 2.0 (0.7-2.1) mmol/L Calcium 9.5 (8.4-10.2) mg/dL Total Bilirubin 0.3 (0.2-1.3) mg/dL AST 23 (14-36) IU/L ALT 17 (<35) IU/L Alkaline Phosphatase 72 (38-126) U/L Troponin I < 0.012 (0.01-0.034) ng/mL NT-Pro-B Natriuret Pep 120 (<125) pg/mL Total Protein 6.0 L (6.3-8.2) g/dL Albumin 3.6 (3.5-5.0) g/dL Globulin 2.4 (1.7-4.1) g/dL Albumin/Globulin Ratio 1.5 (1.0-2.8) Imaging Data Chest x-ray: Radiologist's Impression: Close Chest X-Ray (Signed) Timmy Newman - 03/01/24 Echocardiogram Ultrasound (Signed) Cristian Gill - 01/25/24 Abdomen/Pelvis CT (Signed) Ary Perales - 11/10/23 Chest CTA (Signed) Ary Perales - 11/10/23 Chest X-Ray (Signed) Charlie Mclain - 11/10/23 Chest X-Ray (Signed) Jai Grey - 09/22/[address] (Signed) Timmy Newman - 07/02/23 Thoracic Spine X-Ray (Signed) Timmy Newman - 05/27/23 Chest X-Ray (Signed) Elijah Gill - 11/11/22 Echocardiogram Ultrasound (Signed) Elmer Lagunas - 07/31/22 Chest X-Ray (Signed) Benson Valdovinossse - 07/31/22 Chest X-Ray (Signed) Aruna,Maik - 07/27/22 Chest X-Ray (Signed) Nikita Peters - 12/07/20 Chest X-Ray (Signed) Nikita Peters - 11/29/20 Chest X-Ray (Signed) Rogelio,Hiral - 11/14/20 Chest X-Ray (Signed) Augustus Reed - 11/03/[address] (Signed) Aruna,Maik - 11/03/20 Thoracic Spine X-Ray (Signed) Ohiopyle,Maik - 11/03/20 Lumbar Spine X-Ray (Signed) Ohiopyle,Maik - 11/03/20 Chest CTA (Signed) Raj Grey - 10/24/20 Telemetry Strips 10/24/[address] (Signed) Alfred Davies - 10/24/[address] (Signed) Hiral Mercado - 10/24/20 Chest X-Ray (Signed) RogelioJuanHiral - 10/24/20 Lumbar Spine X-Ray (Signed) Timmy Newman - 10/21/20 Hip X-Ray (Signed) Timmy Newman - 10/21/20 Hip X-Ray (Cancelled) 10/21/[address] (Signed) Vadim Yeboah - 06/13/20 Modified Barium Swallow (Signed) Hiral Mercado - 06/13/[address] (Signed) Alfred Davies - 05/09/[address] (Signed) Marino Levine - 09/28/19 Lumbar Spine X-Ray (Signed) Alfred Davies - 07/08/19 Renal Ultrasound (Signed) Stu Gonzalez - 06/30/[address] (Signed) Stu Gonzalez - 01/28/19 Echocardiogram Ultrasound (Signed) Agustin Quick - 11/19/18 Lumbar Spine MRI (Signed) Augustus Reed - 10/13/[address] (Signed) Timmy Newman - 05/28/18 Chest X-Ray (Signed) Alfred Davies - 05/20/18 Bone Densitometry 04/23/[address] (Signed) Stu Gonzalez - 12/17/18 Echocardiogram Ultrasound (Signed) Agustin Quick - 01/20/18 Launch?Image [address] [address] XRay Report Signed Patient: Dorene Small MR#: [id number] : 1950 Acct:[id number] Age/Sex: 74 / F Date of Service: 03/01/24 Loc: ED Accession Number: [id number] Procedure: XR chest 1V Ordering Provider: Zeny Schumacher D.O. PROCEDURE: XR CHEST 1V INDICATIONS: Shortness of breath TECHNIQUE: One view of the chest was acquired. COMPARISON: [facility], CT, CT ANGIO CHEST PE PROTOCOL, 11/10/2023, 20:05. [facility], CR, XR CHEST 1V, 11/10/2023, 18:31. FINDINGS: Surgical changes and devices: None. Lungs and pleura: Stable findings. Bibasilar bronchiectasis and mild chronic interstitial change. No pleural effusions or pneumothorax. Mediastinum: Mediastinal contours appear normal. Heart size is normal. Bones and chest wall: No suspicious bony lesions. Overlying soft tissues appear unremarkable. IMPRESSION: Bibasilar bronchiectasis and mild chronic interstitial change. No focal acute infiltrates identified. Dictated by: Timmy Newman M.D. on 03/01/2024 at 15:18 Approved by: Timmy Newman M.D. on 03/01/2024 at 15:20 ECG Data Attestation: I personally reviewed and interpreted this ECG as follows: Prior ECG tracings: available for review Interpretation: Sinus rhythm rate of 79 PA 164 QRS of 90 QTC of 474. Patient has prior from 11/10/2023 appears similar, appears to be sinus rhythm although some muscle motion artifact. MDM Narrative Medical decision making narrative: Chest x-ray shows bibasilar bronchiectasis and mild chronic interstitial change no focal acute interval trance noted. EKG sinus rhythm rate of 79 Labs white count of 10.6 hemoglobin of 10.4 consistent with priors, platelets of 271. INR is 1, sodium is 134 potassium is 4.3 chloride 94 with a CO2 of 37 also consistent with priors in October, BUN 23 creatinine 0.89 glucose is 292 LFTs are negative with a troponin less than 0.012 and a BNP of 120. Patient did have an echo on 01/25/2024 with an EF of greater than 60% grade 1 diastolic dysfunction with mild LVH, normal RV contractility normal cardiac chambers mild TR no obvious intracardiac shunts no obvious intracardiac masses or thrombi no hemodynamically significant pericardial effusion low right-sided filling pressures. Patient's exam and recent symptoms seem most consistent with congestive heart failure. Patient's BNP is not particularly elevated but she appears fluid overloaded. She has crackles bilaterally, chest x-ray does not show any obvious pneumonia she has been afebrile. Does not have increasing O2 requirements did have a decrease in her diuretics about 2 weeks ago. Patient was given Lasix 40 mg here in the department. Did receive 1 albuterol as she has a little bit of wheeze although I suspect this is more related to her fluid overload but she does use nebs at home. Patient patient received albuterol had mild improvement also received Lasix. Patient feels a little bit improved. She feels comfortable with discharge home no increasing O2 requirements plan to increase her torsemide with short term follow-up. Patient has not had increasing O2 requirements no persistent hypertension, no increased work of breathing. Patient felt appropriate for discharge home. Discharge Plan Departure Patient Disposition: Home Clinical Impression: Congestive heart failure (CHF) Instructions: DI for Heart Failure Activity Restrictions/Additional Instructions: Please increase your torsemide dose to 30 mg daily, continue with your regular 20 mg torsemide and take one 10 mg tablet with it daily x5 days. Prescription sent to [facility] Please return for re-evaluation if you are having increasing shortness of breath, increasing chest pain, lightheadedness or passing out, worsening swelling of your extremities, you nausea or vomiting, fevers or other new or concerning changes. Prescriptions: New torsemide 10 mg tablet 10 mg PO DAILY Qty: 5 0RF No Action prednisone 10 mg tablet 10 mg PO DAILY Qty: 30 3RF acetaminophen 325 mg tablet 500 mg PO Q6HR PRN (Reason: Pain, Mild (1-3)) folic acid 400 mcg Tablet 0.4 mg PO QAM calcium carbonate-vitamin D2 600 mg calcium- 200 unit Tablet 1 tab PO DAILY Probiotic 20 billion cell Capsule 20,000 mmu cells PO QAM acyclovir 400 mg Tablet 400 mg PO BID gabapentin 300 mg Capsule 600 mg PO TID montelukast 10 mg Tablet 10 mg PO BEDTIME rosuvastatin [Crestor] 10 mg Tablet 10 mg PO BEDTIME insulin glargine [Basaglar KwikPen U-100 Insulin] 100 unit/mL (3 mL) Insulin Pen 12 unit SUBCUT QAM alendronate 70 mg tablet 70 mg PO nystatin 100,000 unit/gram ointment 1 applic topical PRN tramadol 50 mg tablet 50 mg PO BID PRN mycophenolate mofetil 250 mg capsule 750 mg PO BID hydroxychloroquine 200 mg tablet 200 mg PO DAILY (DME) pen needle, diabetic [BD Ultra-Fine Short Pen Needle] 31 gauge x 5/16 needle See Rx Instructions .ROUTE DAILY Qty: 1200 Rx Instructions: As directed losartan 25 mg tablet 25 mg PO DAILY prednisone 1 mg tablet 1 mg PO DAILY potassium chloride 20 mEq tablet,ER particles/crystals 20 meq PO DAILY fluticasone furoate-vilanterol [Breo Ellipta] 100-25 mcg/dose blister with device 1 ea inhalation DAILY albuterol sulfate 90 mcg/actuation HFA aerosol inhaler 2 puff inhalation Q3-4H PRN furosemide 40 mg tablet See Rx Instructions PO DAILY PRN (Reason: weight gain) Qty: 120 11RF Rx Instructions: 80-160mg orally daily PRN to target dry weight of 170lbs torsemide 20 mg tablet 20 mg PO DAILY Referrals: Donny Avendano MD [Primary Care Provider] - Stand Alone Forms: Patient Portal/API/Survey
[2024-03-01] MEDS: ALBUTEROL 2.5 MG/3 ML NEB (ADULT) INH (17:16)
[2024-03-01] MEDS: FUROSEMIDE 40 MG/4 ML VIAL IV (17:40)
== END 2024-03-01 18:55 | disposition home or self-care (01) ==
PROVIDERS: Emergency Provider Emergency Medicine; PCP Family Medicine
DX: I50.9 Heart failure, unspecified (principal); R06.02 Shortness of breath; R79.89 Other specified abnormal findings of blood chemistry
CPT/HCPCS: 36415; 71045; 80053; 83605; 83880; 84484; 85025; 85610; 93005; 93010; 94640; 96374; 99285; J1940; J7613

== ENCOUNTER 2024-06-20 14:15 | Emergency (ER) | payer MEDICARE, BC, SELFPAY ==
[2022-11-11 18:41] VITALS: BMI 30.2
[2024-06-20] VITALS (17 sets, daily range): BP systolic 101–131; BP diastolic 51–60; PULSE 76–95; RESP 13–28; TEMP 36.9; O2SAT 92–98; BMI 38.3
--- NOTE | 2024-06-20 14:44 | DI.RAD.S_ITS ---
PROCEDURE: XR CHEST 1V INDICATIONS: suspected sepsis TECHNIQUE: One view of the chest was acquired. COMPARISON: [facility], CR, XR CHEST 1V, 03/01/2024, 14:17. FINDINGS: Surgical changes and devices: None. Lungs and pleura: Pulmonary vascular congestion is seen. Blunting of left costophrenic angle is likely present suggestive of trace left pleural effusion. No definite focal infiltrate. No pneumothorax. Mediastinum: Mediastinal contours appear normal. Heart size is enlarged. Bones and chest wall: No suspicious bony lesions. Overlying soft tissues appear unremarkable. IMPRESSION: Finding is suggestive of CHF. Trace left pleural effusion. No definite focal infiltrate. No pneumothorax. Dictated by: Elijah Gill M.D. on 06/20/2024 at 15:48 Approved by: Elijah Gill M.D. on 06/20/2024 at 15:49
--- NOTE | 2024-06-20 14:44 | EKG_ITS ---
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
[2024-06-20 15:29] LABS: Influenza A - CEPHEID Flu A POSITIVE (NEGATIVE); Influenza B - CEPHEID Flu B NEGATIVE (NEGATIVE); Respiratory Syncytial Virus Negative (Negative)
[2024-06-20] MEDS: SODIUM CHLORIDE 0.9% 1,000 ML 1000 ML IV (16:04)
[2024-06-20 16:06] LABS: COVID-19 CEPHEID 4-PLEX PCR Negative (Negative)
[2024-06-20 16:11] LABS: Add Manual Diff / Slide Review NO; Basophils Absolute Auto 0 /uL (0-100); Basophils Percent Auto 0.4 % (0-2); Eosinophils Absolute Auto 0 /uL (0-450); Eosinophils Percent Auto 0.3 % (2-4); Hemoglobin 9.2 g/dL (12.0-16.0); Lymphocytes Absolute Auto 600 /uL (1100-4500); Lymphocytes Percent Auto 6.9 % (25-40); Mean Corpuscular HGB Conc 31.8 % (30-36); Mean Corpuscular Hemoglobin 30.1 PG (26-34); Mean Corpuscular Volume 94.6 fL (80-100); Monocytes Absolute Auto 1000 /uL (0-900); Monocytes Percent Auto 12.5 % (3-14); Neutrophils Absolute Auto 6500 /uL (1500-7000); Neutrophils Percent Auto 79.9 % (50-75); Platelet Count 234 X10^3/uL (150-400); Red Blood Cell Count 3.07 X10^6/uL (4.0-5.2); Red Cell Distribution Width 14.2 % (11.6-14.8); White Blood Cell Count 8.2 X10^3/uL (4.5-11.0)
[2024-06-20 16:27] LABS: Lactate (Lactic Acid) 0.7 mmol/L (0.7-2.1)
[2024-06-20 16:28] LABS: INR 1.1 (0.9-1.3); Prothrombin Time 12.2 SECONDS (9.4-12.5)
[2024-06-20 16:29] LABS: Alanine Aminotransferase 14 IU/L (<35); Albumin 3.3 g/dL (3.5-5.0); Albumin Globulin Ratio 1.3 (1.0-2.8); Alkaline Phosphatase 59 U/L (38-126); Aspartate Aminotransferase 29 IU/L (14-36); BUN Creatinine Ratio 15.7 (6-22); Bilirubin Total 0.3 mg/dL (0.2-1.3); Blood Urea Nitrogen 18 mg/dL (7-17); Calcium 8.9 mg/dL (8.4-10.2); Carbon Dioxide 38 mmol/L (22-32); Chloride 91 mmol/L (98-107); Estimated Glomerular Filt Rate 50 mL/min (>60); Globulin 2.6 g/dL (1.7-4.1); Glucose 152 mg/dL (80-110); HEMOLYSIS < 15 (0-50); Lipase 51 U/L (23-300); Potassium 4.3 mmol/L (3.4-5.1); Sodium 131 mmol/L (137-145); Total Protein 5.9 g/dL (6.3-8.2)
[2024-06-20 16:31] LABS: PTT Partial Thromboplastin Tim 24 SECONDS (25.1-36.5)
[2024-06-20 16:44] LABS: Procalcitonin 0.173 ng/mL (<0.5)
--- NOTE | 2024-06-20 18:54 | ED.SOB ---
HPI - SOB/Dyspnea General Chief Complaint: Shortness of Breath/Dyspnea Stated Complaint: Cough/Fever/SOB Time Seen by Provider: 06/20/24 18:54 Source: patient Mode of arrival: Wheelchair History of Present Illness HPI Narrative: 74-year-old female with a history of CHF, chronically on 1-2 L oxygen, asthma, hypertension, diabetes, dermatomyositis on mycophenolate presents from home for evaluation of shortness of breath, cough, fever, ongoing persistent for the past 4 days, she states that she lives at a nursing facility and a lot of the residents have gotten flu A. She denies any symptoms such as headache visual disturbances nausea vomiting abdominal pain or any other GI/ symptoms time. She states that she has not needed an increase in her oxygen but does feel more short of breath with coughing and wheezing. Related Data Home Medications Medication Instructions Recorded Confirmed acyclovir 400 mg tablet 400 mg PO BID 06/27/19 03/30/24 gabapentin 300 mg capsule 600 mg PO TID 06/27/19 03/30/24 insulin glargine 100 unit/mL (3 12 unit SUBCUT QAM 06/27/19 03/30/24 mL) subcutaneous pen (Basaglar KwikPen U-100 Insulin) montelukast 10 mg tablet 10 mg PO BEDTIME 06/27/19 03/30/24 rosuvastatin 10 mg tablet (Crestor) 10 mg PO BEDTIME 06/27/19 03/30/24 acetaminophen 325 mg tablet 500 mg PO Q6HR PRN Pain, Mild (1-3) 10/24/20 03/30/24 calcium carb-ergocalciferol (vit 1 tab PO DAILY 10/24/20 03/30/24 D2) 600 mg calcium-200 unit tablet folic acid 400 mcg tablet 0.4 mg PO QAM 10/24/20 03/30/24 lactobacillus comb no.10 20 20,000 mmu cells PO QAM 10/24/20 03/30/24 billion cell capsule (Probiotic) alendronate 70 mg tablet 70 mg PO 05/27/23 03/30/24 hydroxychloroquine 200 mg tablet 200 mg PO DAILY 05/27/23 03/30/24 losartan 25 mg tablet 25 mg PO DAILY 05/27/23 03/30/24 mycophenolate mofetil 250 mg 750 mg PO BID 05/27/23 03/30/24 capsule nystatin 100,000 unit/gram topical 1 applic topical PRN 05/27/23 03/30/24 ointment pen needle, diabetic 31 gauge x #1,200 ea 05/27/23 03/30/24 5/16 (BD Ultra-Fine Short Pen Needle) tramadol 50 mg tablet 50 mg PO BID PRN 05/27/23 03/30/24 albuterol sulfate 90 mcg/actuation 2 puff inhalation Q3-4H PRN 11/20/23 03/30/24 aerosol inhaler fluticasone furoate 100 1 ea inhalation DAILY 11/20/23 03/30/24 mcg-vilanterol 25 mcg/dose inhalation powder (Breo Ellipta) potassium chloride 20 mEq 20 meq PO DAILY 11/20/23 03/30/24 tablet,extended release(part/cryst) prednisone 1 mg tablet 1 mg PO DAILY 11/20/23 03/30/24 torsemide 60 mg tablet 60 mg PO DAILY 05/17/24 05/17/24 Previous Rx's Medication Instructions Recorded prednisone 10 mg tablet 10 mg PO DAILY #30 tabs 06/30/23 furosemide 40 mg tablet See Rx Instructions PO DAILY PRN 10/26/23 weight gain #120 tabs doxycycline hyclate 100 mg capsule 100 mg PO BID PRN bronchiectasis 03/30/24 flare #42 caps prednisone 20 mg tablet 40 mg (2 x 20 mg) PO DAILY PRN 03/30/24 Asthma flare #10 tabs oseltamivir 75 mg capsule (Tamiflu) 75 mg PO BID 5 days #10 caps 06/20/24 prednisone 20 mg tablet 40 mg (2 x 20 mg) PO DAILY 5 days 06/20/24 #10 tabs Allergies Allergy/AdvReac Type Severity Reaction Status Date / Time Penicillins Allergy Severe Swelling Verified 06/20/24 14:37 of Lip/Tongue/Throat amoxicillin AdvReac Intermediate Hives Verified 06/20/24 14:37 oxycodone AdvReac Intermediate Hives Verified 06/20/24 14:37 Sulfa (Sulfonamide AdvReac Intermediate Hives Verified 06/20/24 14:37 Antibiotics) Review of Systems Review of Systems Narrative: General: Positive fever, denies chills, weight loss HEENT: Denies headache, eye drainage, eye irritation, head trauma, sore throat, voice change Cardiovascular: Denies any chest pain, palpitations, shortness of breath, tachycardia Respiratory: Positive shortness of breath, cough, wheeze, denies stridor GI/: Denies any abdominal pain, nausea, vomiting, diarrhea, bright red blood per rectum, melanotic stools, urinary frequency, urinary retention, dysuria, hematuria MSK: Denies any joint pain, muscle pains, swelling Skin: Denies any rashes, lesions, discoloration Neuro: Denies any headache, lightheadedness, dizziness, fainting, weakness Psych: Denies SI/HI Patient History Medical History Chronic cough SCC (squamous cell carcinoma) Polymyositis Arthritis Glynn's disease Incontinence Hiatal hernia GERD (gastroesophageal reflux disease) Edema HLD (hyperlipidemia) HTN (hypertension) Nasal polyp Pneumonia Asthma Neuropathy Interstitial lung disease Sarcoidosis Diabetes CKD (chronic kidney disease), stage III Surgical History H/O wrist surgery History of arthroplasty of left knee History of arthroplasty of right knee Hx of hernia repair Hx of cholecystectomy Hx of tonsillectomy Status post correction of deviated nasal septum Hx of bilateral cataract extraction Social History household members: none Smoking Status: Never smoker alcohol intake: never Smoking Status: Never smoker alcohol intake frequency: holidays/special occasions only Exam Narrative Exam Narrative: General: Cooperative, comfortable, well-developed, not in acute distress HEENT: Normocephalic, atraumatic, PERRLA, normal sclera, eyelids normal, Neck: Active full range of motion, atraumatic Chest: Normal to inspection, negative crepitus, no overlying erythema ecchymosis Respiratory: Patient on 2 L nasal cannula baseline, patient with expiratory wheezes all lung marte but protecting airway no voice changes no stridor no trismus coughing on exam Cardiology: Regular rate rhythm negative gallop, murmur, rubs GI/: Normal to inspection, soft, nonrigid, no tenderness to palpation, exam deferred MSK: Full range of active range of motion of all 4 extremities, atraumatic Skin: No rashes lesions noted Neuro: Alert awake oriented x3, moves all 4 extremities spontaneously, cranial nerves intact, able to answer all questions appropriately follows commands appropriately Psych: Cooperative, negative suicidal or homicidal ideations Initial Vital Signs Initial Vital Signs: Vital Signs Temperature 98.5 F 06/20/24 14:37 Pulse Rate 95 H 06/20/24 14:37 Respiratory Rate 18 06/20/24 14:37 Blood Pressure 112/57 L 06/20/24 14:37 Pulse Oximetry 94 06/20/24 14:37 Oxygen Delivery Method Nasal Cannula 06/20/24 14:37 Oxygen Flow Rate 1.5 06/20/24 14:37 Course Orders Ordered: ED Orders 06/20/24 14:44 XR chest 1V Stat EKG-12 Lead Stat RT Consult Eval and Treat NOW 06/20/24 14:45 Covid-19 + FLU A/B + RSV - PCR Stat 06/20/24 15:48 BNP [NT-proBNP (BNP-Adult 18+)] Stat Complete Blood Count AUTO DIFF Stat Comprehensive Metabolic Panel Stat Lactate (Lactic Acid) Stat Lipase Stat PTT Partial Thromboplastin Cristino Stat Procalcitonin Stat Prothrombin Time INR Stat Troponin & CK Cardiac Panel Stat 06/20/24 16:22 Blood Culture Stat Ondansetron HCl (Ondansetron 4 Mg Odt) 4 mg SL NOW PRN PRN Reason: Nausea And Vomiting Discontinued Medications Albuterol (Albuterol 2.5 Mg/3 Ml Neb (Adult)) 2.5 mg INH NOW ONE Stop: 06/20/24 19:10 Last Admin: 06/20/24 19:31 Dose: 2.5 mg Documented By: DWAYNE Furosemide (Furosemide 40 Mg/4 Ml Vial) 40 mg IV NOW ONE Stop: 06/20/24 19:11 Last Admin: 06/20/24 19:48 Dose: 40 mg Documented By: ARCHANA Sodium Chloride (Normal Saline 0.9%) 1,000 mls @ 1,000 mls/hr IV BOLUS ONE Stop: 06/20/24 15:43 Last Infusion: 06/20/24 17:40 Dose: Infused Documented By: Admin: 06/20/24 16:04 Dose: 1,000 mls/hr Documented By: KAMILLE Methylprednisolone (Methylprednisolone 125 Mg/2 Ml Vial) 125 mg IV NOW ONE Stop: 06/20/24 19:10 Last Admin: 06/20/24 19:48 Dose: 125 mg Documented By: ARCHANA Ondansetron HCl (Ondansetron 4 Mg/2 Ml Inj) 4 mg IV NOW PRN PRN Reason: Nausea And Vomiting Last Admin: 06/20/24 19:48 Dose: 4 mg Documented By: ARCHANA Oseltamivir Phosphate (Oseltamivir 75 Mg Capsule) 75 mg PO NOW ONE Stop: 06/20/24 19:09 Last Admin: 06/20/24 19:57 Dose: 75 mg Documented By: ARCHANA Vital Signs Vital signs: Vital Signs - 8 hr 06/20/24 14:37 06/20/24 15:02 06/20/24 15:03 Temperature 98.5 F Pulse Rate 95 H 87 Respiratory Rate 18 21 Blood Pressure 112/57 L 101/52 L Pulse Oximetry 94 95 Oxygen Delivery Method Nasal Cannula Oxygen Flow Rate 1.5 06/20/24 15:03 06/20/24 15:30 06/20/24 15:30 Temperature Pulse Rate 88 85 Respiratory Rate 21 Blood Pressure 110/51 L Pulse Oximetry 94 95 Oxygen Delivery Method Nasal Cannula Oxygen Flow Rate 2 06/20/24 16:00 06/20/24 16:00 06/20/24 16:30 Temperature Pulse Rate 82 83 Respiratory Rate 22 20 Blood Pressure 111/56 L Pulse Oximetry 95 95 Oxygen Delivery Method Oxygen Flow Rate 06/20/24 16:30 06/20/24 16:57 06/20/24 16:57 Temperature Pulse Rate 94 H Respiratory Rate Blood Pressure 114/59 L 128/60 Pulse Oximetry Oxygen Delivery Method Oxygen Flow Rate 06/20/24 17:00 06/20/24 17:00 06/20/24 17:30 Temperature Pulse Rate 81 80 Respiratory Rate 22 26 H Blood Pressure 120/59 L Pulse Oximetry 95 95 Oxygen Delivery Method Nasal Cannula Oxygen Flow Rate 2 06/20/24 17:30 06/20/24 18:09 06/20/24 18:10 Temperature Pulse Rate 89 Respiratory Rate 25 H Blood Pressure 110/55 L 131/60 Pulse Oximetry 92 Oxygen Delivery Method Oxygen Flow Rate 06/20/24 18:10 06/20/24 18:30 06/20/24 18:30 Temperature Pulse Rate 89 78 Respiratory Rate 13 26 H Blood Pressure 120/58 L Pulse Oximetry 92 97 Oxygen Delivery Method Nasal Cannula Oxygen Flow Rate 2 06/20/24 19:31 Temperature Pulse Rate 82 Respiratory Rate 16 Blood Pressure Pulse Oximetry 98 Oxygen Delivery Method Room Air Oxygen Flow Rate MDM - SOB/Dyspnea Differential Diagnosis Differential diagnosis: Likely acute exacerbation of chronic obstructive airways disease, congestive heart failure, community acquired pneumonia and other (Electrolyte abnormality, COVID, flu, RSV) Lab Data 06/20/24 15:48 06/20/24 15:48 Labs: Lab Results 06/20/24 06/20/24 Range/Units 14:45 15:48 WBC 8.2 (4.5-11.0) X10^3/uL RBC 3.07 L (4.0-5.2) X10^6/uL Hgb 9.2 L (12.0-16.0) g/dL Hct 29.0 L (36-46) % MCV 94.6 (80-100) fL MCH 30.1 (26-34) PG MCHC 31.8 (30-36) % RDW 14.2 (11.6-14.8) % Plt Count 234 (150-400) X10^3/uL Neut % (Auto) 79.9 H (50-75) % Lymph % (Auto) 6.9 L (25-40) % [place] % (Auto) 12.5 (3-14) % Eos % (Auto) 0.3 L (2-4) % Baso % (Auto) 0.4 (0-2) % Neut # (Auto) 6500 (8252-1679) /uL Lymph # (Auto) 600 L (6410-4705) /uL [place] # (Auto) 1000 H (0-900) /uL Eos # (Auto) 0 (0-450) /uL Baso # (Auto) 0 (0-100) /uL PT 12.2 (9.4-12.5) SECONDS INR 1.1 (0.9-1.3) APTT 24 L (25.1-36.5) SECONDS Sodium 131 L (137-145) mmol/L Potassium 4.3 (3.4-5.1) mmol/L Chloride 91 L (98-107) mmol/L Carbon Dioxide 38 H (22-32) mmol/L BUN 18 H (7-17) mg/dL Creatinine 1.15 H (0.52-1.04) mg/dL Estimated GFR 50 L (>60) mL/min BUN/Creatinine Ratio 15.7 (6-22) Glucose 152 H (80-110) mg/dL Lactate 0.7 (0.7-2.1) mmol/L Calcium 8.9 (8.4-10.2) mg/dL Total Bilirubin 0.3 (0.2-1.3) mg/dL AST 29 (14-36) IU/L ALT 14 (<35) IU/L Alkaline Phosphatase 59 (38-126) U/L Total Creatine Kinase 89 (30-135) U/L Troponin I 0.041 H (0.01-0.034) ng/mL NT-Pro-B Natriuret Pep 502 H (<125) pg/mL Total Protein 5.9 L (6.3-8.2) g/dL Albumin 3.3 L (3.5-5.0) g/dL Globulin 2.6 (1.7-4.1) g/dL Albumin/Globulin Ratio 1.3 (1.0-2.8) Lipase 51 (23-300) U/L Procalcitonin 0.173 (<0.5) ng/mL SARS-CoV-2 (PCR) Negative (Negative) Influenza A (RT-PCR) Flu a positive H (NEGATIVE) Influenza B (RT-PCR) Flu b negative (NEGATIVE) RSV (PCR) Negative (Negative) Point of Care Testing Glucose POC 156 Urine Dip Bedside Urine Glucose Negative Bedside Urine Bilirubin - Negative Bedside Urine Ketone - Negative Urine Specific [place] 1.010 Bedside Urine Occult Blood - Negative Bedside Urine pH 6.0 Bedside Urine Protein - Negative Bedside Urine Urobilinogen - Negative Bedside Urine Nitrite - Negative Bedside Urine Leukocytes - Negative Esterase Imaging Data Chest x-ray: Radiologist's Impression: [address] [address] XRay Report Signed Patient: Dorene Small MR#: [id number] : 1950 Acct:[id number] Age/Sex: 74 / F Date of Service: 06/20/24 Loc: ED Accession Number: [id number] Procedure: XR chest 1V Ordering Provider: Zeny Schumacher D.O. PROCEDURE: XR CHEST 1V INDICATIONS: suspected sepsis TECHNIQUE: One view of the chest was acquired. COMPARISON: [facility], [place], XR CHEST 1V, 03/01/2024, 14:17. FINDINGS: Surgical changes and devices: None. Lungs and pleura: Pulmonary vascular congestion is seen. Blunting of left costophrenic angle is likely present suggestive of trace left pleural effusion. No definite focal infiltrate. No pneumothorax. Mediastinum: Mediastinal contours appear normal. Heart size is enlarged. Bones and chest wall: No suspicious bony lesions. Overlying soft tissues appear unremarkable. IMPRESSION: Finding is suggestive of CHF. Trace left pleural effusion. No definite focal infiltrate. No pneumothorax. ECG Data Interpretation: EKG interpreted by ED physician sinus 90 beats per minute QTC [address] changes no STEMI MDM Narrative Medical decision making narrative: Patient is a 74-year-old female with a history CHF pulmonary fibrosis chronically on 04/28 2 L nasal cannula, diabetes, dermatomyositis presenting from home for evaluation of flu-like symptoms, shortness of breath is on her baseline 2 L nasal cannula not requiring any additional increased to this. Patient noted to be flu A positive here. Chest x-ray showing trace pleural effusion, patient without any leukocytosis hemoglobin baseline anemia at 9.2, Chem panel unremarkable, initial troponin is only slightly elevated at 0.041 but most likely type 2 spilled given patient with CHF and flu a, she has not having any chest pain EKG nonischemic, Patient stating that her symptoms have been ongoing for a proximally 4 days does live at a nursing facility therefore risks benefits was discussed and patient will receive Tamiflu. Patient also treated for asthma exacerbation Solu-Medrol DuoNeb albuterol given with improvement of symptoms as well as Lasix. 2015: Patient still at baseline oxygenation, significant improvement after administration of Solu-Medrol Lasix and albuterol treatment, patient is speaking in full sentences protecting airway she states that she would like to go back to her facility, patient will be sent home with steroids Tamiflu for symptomatic relief. Patient was given strict return precautions she verbalized understanding of this and agrees to being discharged home with outpatient follow up Discharge Plan Departure Patient Disposition: Home Clinical Impression: Influenza A, Asthma exacerbation Instructions: DI for Influenza -- Adult Activity Restrictions/Additional Instructions: Please follow up with your primary care doctor Please read the discharge instructions sheet carefully and bring all papers to all doctor follow-up visits, as it may contain information that your doctor may want to see. Disease processes change and evolve, if your symptoms worsen or if you develop any new symptoms that are concerning to you please return for evaluation. Your evaluation today does not show any evidence of any life-threatening/serious illnesses requiring admission to the hospital or surgery. Please follow-up with your doctor for re-evaluation in approximately 1 day. Seek immediate medical attention for any worrisome symptoms. *If you do not have a primary care provider please contact the [facility] Resource line at [phone]. They will ask some questions about your medical history and help get you set up with a doctor in the community. Prescriptions: New prednisone 20 mg tablet 40 mg PO DAILY 5 Days Qty: 10 0RF oseltamivir [Tamiflu] 75 mg capsule 75 mg PO BID 5 Days Qty: 10 0RF No Action prednisone 10 mg tablet 10 mg PO DAILY Qty: 30 3RF acetaminophen 325 mg tablet 500 mg PO Q6HR PRN (Reason: Pain, Mild (1-3)) folic acid 400 mcg Tablet 0.4 mg PO QAM calcium carbonate-vitamin D2 600 mg calcium- 200 unit Tablet 1 tab PO DAILY Probiotic 20 billion cell Capsule 20,000 mmu cells PO QAM acyclovir 400 mg Tablet 400 mg PO BID gabapentin 300 mg Capsule 600 mg PO TID montelukast 10 mg Tablet 10 mg PO BEDTIME rosuvastatin [Crestor] 10 mg Tablet 10 mg PO BEDTIME insulin glargine [Basaglar KwikPen U-100 Insulin] 100 unit/mL (3 mL) Insulin Pen 12 unit SUBCUT QAM alendronate 70 mg tablet 70 mg PO nystatin 100,000 unit/gram ointment 1 applic topical PRN tramadol 50 mg tablet 50 mg PO BID PRN mycophenolate mofetil 250 mg capsule 750 mg PO BID hydroxychloroquine 200 mg tablet 200 mg PO DAILY (DME) pen needle, diabetic [BD Ultra-Fine Short Pen Needle] 31 gauge x 5/16 needle See Rx Instructions .ROUTE DAILY Qty: 1200 Rx Instructions: As directed losartan 25 mg tablet 25 mg PO DAILY prednisone 1 mg tablet 1 mg PO DAILY potassium chloride 20 mEq tablet,ER particles/crystals 20 meq PO DAILY fluticasone furoate-vilanterol [Breo Ellipta] 100-25 mcg/dose blister with device 1 ea inhalation DAILY albuterol sulfate 90 mcg/actuation HFA aerosol inhaler 2 puff inhalation Q3-4H PRN doxycycline hyclate 100 mg capsule 100 mg PO BID PRN (Reason: bronchiectasis flare) Qty: 42 11RF Rx Instructions: if used for bronchiectasis flare, complete 3 week course prednisone 20 mg tablet 40 mg PO DAILY PRN (Reason: Asthma flare) Qty: 10 11RF Rx Instructions: If use for asthma flare complete 5 day course torsemide 60 mg tablet 60 mg PO DAILY furosemide 40 mg tablet See Rx Instructions PO DAILY PRN (Reason: weight gain) Qty: 120 11RF Rx Instructions: 80-160mg orally daily PRN to target dry weight of 170lbs Referrals: Donny Avendano MD [Primary Care Provider] - Stand Alone Forms: Patient Portal/API/Survey
[2024-06-20 19:16] LABS: Creatine Kinase 89 U/L (30-135)
[2024-06-20 19:26] LABS: NT-proBNP (BNP-Adult 18+) 502 pg/mL (<125)
[2024-06-20 19:29] LABS: Troponin I 0.041 ng/mL (0.01-0.034)
[2024-06-20] MEDS: ALBUTEROL 2.5 MG/3 ML NEB (ADULT) INH (19:31)
[2024-06-20] MEDS: FUROSEMIDE 40 MG/4 ML VIAL IV (19:48)
[2024-06-20] MEDS: ONDANSETRON 4 MG/2 ML INJ IV (19:48)
[2024-06-20] MEDS: methylPREDNISolone 125 MG/2 ML VIAL IV (19:48)
[2024-06-20] MEDS: OSELTAMIVIR 75 MG CAPSULE PO (19:57)
== END 2024-06-20 21:05 | disposition home or self-care (01) ==
PROVIDERS: Emergency Medicine; Emergency Provider Student in an Organized Health Care Education/Training Program; PCP Family Medicine
DX: J10.1 Influenza due to other identified influenza virus with other respiratory manifestations (principal); J45.901 Unspecified asthma with (acute) exacerbation; R05.9 Cough, unspecified; R50.9 Fever, unspecified; I50.9 Heart failure, unspecified; Z99.81 Dependence on supplemental oxygen
CPT/HCPCS: 0241U; 36415; 71045; 80053; 81003; 82550; 82962; 83605; 83690; 83880; 84145; 84484; 85025; 85610; 85730; 87040; 93005; 94640; 96361; 96374; 96375; 99285; J1940; J2405; J2919; J7613